=== PATIENT | male | born 1950 | race Caucasian/White ===

== ENCOUNTER 2021-06-09 11:53 | Inpatient (IN) ==
[2021-06-09] MEDS ORDERED: SODIUM CHLORIDE 0.9% 1000ML 1,000 ML IV ONE ×2 (12:24→12:41)
[2021-06-09 12:31] LABS: Basophils # (auto) 0.01 K/uL (0-0.2); Hematocrit (blood only) 31.4 % (42-52); Immature Granulocytes # (auto) 0.07 K/uL (0.00-0.02); Immature Granulocytes % (auto) 0.3 %; Lymphocytes # (auto) 1.05 K/uL (1.2-3.4); Mean Corpuscular Hemoglobin 30.1 pg (25-34); Mean Corpuscular Volume 85.8 fL (80-100); Mean Platelet Volume 8.9 fL (7.4-10.4); Monocytes # (auto) 0.74 K/uL (0.11-0.59); Monocytes % (auto) 3.6 %; Neutrophils # (auto) 18.95 K/uL (1.4-6.5); Neutrophils % (auto) 91.1 %; Platelet Count 371 K/uL (130-400); RDW Coefficient of Variation 13.7 % (11.5-14.5); RDW Standard Deviation 43.6 fL (36.4-46.3); Red Blood Count 3.66 M/uL (4.7-6.1); White Blood Count 20.82 K/uL (4.8-10.8)
[2021-06-09 12:39] LABS: Albumin Level 2.8 gm/dl (3.4-5.0); BUN Creatinine Ratio 18.7 (10-20); Calcium 8.8 mg/dl (8.5-10.1); Creatinine Clr Calc Pharmacy 60.5 ml/min; Est GFR (African American) 73.3 ml/min; Est GFR (Non-African American) 63.2 ml/min; Potassium 3.5 mmol/L (3.5-5.1)
[2021-06-09] MEDS ORDERED: POTASSIUM CHLORIDE CRTAB 20 MEQ TABCR PO STA (12:41)
[2021-06-09] MEDS ORDERED: SODIUM CHLORIDE 0.9% 1000ML 500 ML IV ONE (12:44)
[2021-06-09 12:52] LABS: Albumin Globulin Ratio 0.7 (0.9-2); Bilirubin,Total 1.5 mg/dl (0.2-1); Creatine Kinase MB 1.7 ng/ml (0.5-3.6); Globulin 4.1 gm/dl (2.5-4.0); Thyroid Stimulating Hormone 1.12 uIu/ml (0.300-4.500); Total Protein 6.9 gm/dl (6.4-8.2); Troponin I 0.073 ng/ml (0-0.045)
--- NOTE | 2021-06-09 13:03 | XRay Report ---
XR chest 1V portable HISTORY: 70 years-old Male weakness acute weakness COMPARISON: Chest radiograph 02/13/2021 TECHNIQUE: Portable AP view of the chest FINDINGS: Cardiomediastinal and hilar silhouettes are within normal limits. No pneumothorax, pleural effusion, airspace consolidation or overt pulmonary edema. Degenerative changes of the shoulders and spine. IMPRESSION: No acute process. ACT 112: Negative or not required by law. The above report was generated using voice recognition software. It may contain grammatical, syntax o r spelling errors. Electronically signed by: Edilberto Foy M.D. 06/09/2021 1:02 PM
[2021-06-09] MEDS ORDERED: PANTOprazole 80 MG in DEXTROSE 5% 100 ML IV ONE (14:00)
[2021-06-09] MEDS ORDERED: PANTOPRAZOLE BOLUS/DRIP 1 EA IV STA (14:00)
[2021-06-09] MEDS ORDERED: PANTOprazole 40 MG in DEXTROSE 5% 100 ML IV SCH (14:15)
[2021-06-09 14:29] LABS: Base Excess ABG -3.2 mEq/L (-9-1.8); HCO3 ABG 19 mmol/L (19-24); Oxygen Saturation ABG 98.4 % (90-95); PCO2 ABG 26 mmHg (35-46); PO2 ABG 109 mmHg (80-95); pH ABG 7.49 (7.35-7.45)
[2021-06-09 14:31] LABS: Allen Test Pos (Pos)
[2021-06-09 14:35] LABS: INR 1.2 (0.9-1.1); Partial Thromboplastin Ratio 1.3; Partial Thromboplastin Time 33.8 Seconds (21.0-31.0); Prothrombin Time 11.9 Seconds (9.0-12.0)
--- NOTE | 2021-06-09 14:39 | History & Physical Report ---
Date of Service June 09, 2021 Assessment & Plan (1) GI bleed: Hemoglobin upon admission 11.0, down 6 g from January Heme positive stools in the ED NPO Hold aspirin and Plavix H&H every 6 hours Protonix 40 mg IV twice daily NSS + KCl 20 mEq at 125 mils per hour Consult gastroenterology Present on Admission?: Yes (2) Symptomatic anemia: See above Present on Admission?: Yes (3) History of CVA with residual deficit: Temporarily hold aspirin and Plavix Present on Admission?: Yes (4) Internal carotid artery stent present: Temporarily hold aspirin and Plavix Present on Admission?: Yes (5) Elevated troponin I level: Elevated troponin I level/CAD/stented coronary artery- The patient will be admitted to telemetry for serial cardiac enzymes, serial EKG's, cardiac rhythm monitoring and a 2-D echocardiogram with Dopplers. Holding aspirin and Plavix as noted above due to GI bleed Consult cardiology Present on Admission?: Yes (6) CAD (coronary artery disease), [place] coronary artery: See above Present on Admission?: Yes (7) Stented coronary artery: See above Present on Admission?: Yes (8) Diabetes mellitus: Hold Metformin Placed on Accu-Cheks before meals and at bedtime/every 6 hours with NovoLog coverage per scale Check hemoglobin A1c Present on Admission?: Yes (9) Hyperlipidemia LDL goal <70: Hold atorvastatin for now Present on Admission?: Yes History of Present Illness Chief Complaint: The patient was brought to the emergency department with complaint of generalized fatigue, and confusion, as noted by family. Primary Care Provider: Rodney Mcfarland MD The patient is a 70-year-old male with a past medical history including acute CVA on 02/12/2021, status post stenting of right ICA on 02/20/[address] Cruz at [facility], cardiac catheterization at that time which showed 99% distal left main stent disease extending to the proximal LAD with further disease in the RCA and circumflex, status post HERNANDEZ of distal left main extending to the LAD along with IABP which she was ultimately weaned off of. He was to continue aspirin and Plavix dual antiplatelet treatment for 3 months to allow endothelialization of the carotid artery stent, prior to consideration for CABG that would require stopping Plavix temporarily, moderate mitral regurgitation. At that time, he was unwilling to undergo surgery due to financial issues, and was to reconsult with [facility] surgery once he felt he was ready to undergo surgery. His family member in attendance reports that his mentation has continued to be slower, and has memory issues, since he had his CVA in January, Evaluation in the emergency department at [facility] today revealed the following abnormalities: Troponin 0.073, albumin 2.8, WBC 20.82, glucose 167, total bilirubin 1.5, AST 51. His hemoglobin was noted to have dropped to 6 g from previous, and stools were found to be Hemoccult positive. Allergies Allergy/AdvReac Type Severity Reaction Status Date / Time No Known Allergies Allergy Unverified 06/09/21 13:36 Home Medications Medication Instructions Recorded Confirmed Type aspirin [Aspir-81] 81 mg PO QAM 06/09/21 06/09/21 History atorvastatin [Lipitor] 80 mg PO HS 06/09/21 06/09/21 History clopidogrel [Plavix] 75 mg PO QAM 06/09/21 06/09/21 History folic acid-B yvaw-[id number]-oblza-zinc 1 tab PO QAM 06/09/21 06/09/21 History lisinopril [Zestril] 20 mg PO QAM 06/09/21 06/09/21 History metformin 1,000 mg PO BIDM 06/09/21 06/09/21 History metoprolol succinate [Toprol XL] 100 mg PO BIDM 06/09/21 06/09/21 History Past Med/Surg History Medical History (Updated 06/09/21 @ 14:57 by Cody Piedra MD) CAD (coronary artery disease), [place] coronary artery Diabetes mellitus Family history non-contributory Hyperlipidemia LDL goal <70 Internal carotid artery stent present Surgical History (Updated 06/09/21 @ 14:53 by Cody Piedra MD) No history of previous surgery Stented coronary artery Family History (Updated 02/12/21 @ 20:33 by ANA Cloud) Other Family history non-contributory Social History Smoking Status: Never smoker Preferred Language: Unknown Communication Ability: Impaired Current Living Situation Comment: unknown Feels Safe at Home: Yes Assistive Devices: Oxygen - Continuous Review of Systems Review of Systems: The patient denies chest pain, palpitations, shortness of breath, dyspnea on exertion, cough, lower extremity swelling, sore throat, fevers, chills, sweats, nausea, vomiting, diarrhea , constipation, abdominal pain, pelvic pain, blood in urine or stool, dysuria, urinary frequency or urgency, lightheadedness, dizziness, headache, loss of consciousness, rash, abnormal bruising or bleeding, focal weakness, numbness or tingling in arms or legs, generalized arthralgias or myalgias, back or neck pain, or night sweats. The review of systems is otherwise negative other than for that already noted above, and at least 10 systems have been reviewed. Physical Exam Physical Exam: The patient is awake, oriented 3, somewhat slow to respond to questions, normocephalic and atraumatic, lying in bed and in no acute distress. HEENT--PERRL, EOMI, mucous membranes and oropharynx dry. Neck--supple. No JVD. No bruits. Thyroid normal, trachea midline, no adenopathy. Heart--normal S1 and S2. No murmurs, rubs or gallops. Lungs--clear bilaterally, no respiratory distress, no accessory muscle use. Abdomen--normal bowel sounds and soft. Nontender. Nondistended, no hernias or masses, no organomegaly. Extremities--no cyanosis or clubbing. No edema. Dermatologic--normal skin turgor, normal color, no abnormal lymph nodes, no rash. Neurologic--cranial nerves II through XII grossly intact. Rheumatologic--normal range of motion. Psychiatric--normal affect. Results & Data Results & Data ([facility]) Vital Signs (Past 12 Hours) Vital Signs Temp Pulse Resp BP Pulse Ox 06/09/21 14:30 72 25 H 122/70 98 06/09/21 13:24 74 19 123/66 100 06/09/21 12:00 97.7 F 86 20 101/70 98 Laboratory Results Laboratory Results WBC 20.82 K/uL (4.8-10.8) H 06/09/21 12:04 RBC 3.66 M/uL (4.7-6.1) L 06/09/21 12:04 Hgb 11.0 g/dL (14.0-18.0) L 06/09/21 12:04 Hct 31.4 % (42-52) L 06/09/21 12:04 MCV 85.8 fL (80-100) 06/09/21 12:04 MCH 30.1 pg (25-34) 06/09/21 12:04 MCHC 35.0 g/dL (32-36) 06/09/21 12:04 RDW Std Deviation 43.6 fL (36.4-46.3) 06/09/21 12:04 RDW Coeff of Vel 13.7 % (11.5-14.5) 06/09/21 12:04 Plt Count 371 K/uL (130-400) 06/09/21 12:04 MPV 8.9 fL (7.4-10.4) 06/09/21 12:04 Immature Gran % (Auto) 0.3 % 06/09/21 12:04 Neut % (Auto) 91.1 % 06/09/21 12:04 Lymph % (Auto) 5.0 % 06/09/21 12:04 Imperial % (Auto) 3.6 % 06/09/21 12:04 Eos % (Auto) 0.0 % 06/09/21 12:04 Baso % (Auto) 0.0 % 06/09/21 12:04 Neut # (Auto) 18.95 K/uL (1.4-6.5) H 06/09/21 12:04 Lymph # (Auto) 1.05 K/uL (1.2-3.4) L 06/09/21 12:04 Imperial # (Auto) 0.74 K/uL (0.11-0.59) H 06/09/21 12:04 Eos # (Auto) 0.00 K/uL (0-0.5) 06/09/21 12:04 Baso # (Auto) 0.01 K/uL (0-0.2) 06/09/21 12:04 Immature Gran # (Auto) 0.07 K/uL (0.00-0.02) H 06/09/21 12:04 PT 11.9 Seconds (9.0-12.0) 06/09/21 12:04 INR 1.2 (0.9-1.1) H 06/09/21 12:04 APTT 33.8 Seconds (21.0-31.0) H 06/09/21 12:04 PTT Ratio 1.3 06/09/21 12:04 ABG pH 7.49 (7.35-7.45) H 06/09/21 13:48 ABG pCO2 26 mmHg (35-46) L 06/09/21 13:48 ABG pO2 109 mmHg (80-95) H 06/09/21 13:48 ABG HCO3 19 mmol/L (19-24) 06/09/21 13:48 ABG O2 Saturation 98.4 % (90-95) H 06/09/21 13:48 ABG Base Excess -3.2 mEq/L (-9-1.8) 06/09/21 13:48 Brandt Test Pos (Pos) 06/09/21 13:48 Barometric Pressure 729.1 mm/Hg 06/09/21 13:48 Oxygen Given RA 06/09/21 13:48 Sodium 130 mmol/L (136-145) L 06/09/21 12:04 Potassium 3.5 mmol/L (3.5-5.1) 06/09/21 12:04 Chloride 98 mmol/L (98-107) 06/09/21 12:04 Carbon Dioxide 17 mmol/L (21-32) L 06/09/21 12:04 Anion Gap 14.0 (3-11) H 06/09/21 12:04 BUN 22 mg/dl (7-18) H 06/09/21 12:04 Creatinine 1.17 mg/dl (0.6-1.4) 06/09/21 12:04 Est Cr Clr Drug Dosing 60.5 ml/min 06/09/21 12:04 Est GFR ( Amer) 73.3 ml/min 06/09/21 12:04 Est GFR (Non-Af Amer) 63.2 ml/min 06/09/21 12:04 BUN/Creatinine Ratio 18.7 (10-20) 06/09/21 12:04 Glucose 167 mg/dl (70-99) H 06/09/21 12:04 Osmolality 277 mOsm/kg (280-300) L 06/09/21 12:04 Calcium 8.8 mg/dl (8.5-10.1) 06/09/21 12:04 Total Bilirubin 1.5 mg/dl (0.2-1) H 06/09/21 12:04 AST 51 U/L (15-37) H 06/09/21 12:04 ALT 55 U/L (12-78) 06/09/21 12:04 Alkaline Phosphatase 336 U/L (45-117) H 06/09/21 12:04 Total Creatine Kinase 198 U/L (39-308) 06/09/21 12:04 CK-MB (CK-2) 1.7 ng/ml (0.5-3.6) 06/09/21 12:04 CK/CKMB % Calc 0.9 (0-3.0) 06/09/21 12:04 Troponin I 0.073 ng/ml (0-0.045) H* 06/09/21 12:04 Total Protein 6.9 gm/dl (6.4-8.2) 06/09/21 12:04 Albumin 2.8 gm/dl (3.4-5.0) L 06/09/21 12:04 Globulin 4.1 gm/dl (2.5-4.0) H 06/09/21 12:04 Albumin/Globulin Ratio 0.7 (0.9-2) L 06/09/21 12:04 TSH 1.120 uIu/ml (0.300-4.500) 06/09/21 12:04 COVID-19 Eval Order Covid19 at [facility] 06/09/21 13:22 SARS-CoV-2 (PCR) NEGATIVE (Negative) 06/09/21 13:22 Impressions Chest X-Ray 06/09/21 12:24 XR chest 1V portable HISTORY: 70 years-old Male weakness acute weakness COMPARISON: Chest radiograph 02/13/2021 TECHNIQUE: Portable AP view of the chest FINDINGS: Cardiomediastinal and hilar silhouettes are within normal limits. No pneumothorax, pleural effusion, airspace consolidation or overt pulmonary edema. Degenerative changes of the shoulders and spine. IMPRESSION: No acute process. ACT 112: Negative or not required by law. The above report was generated using voice recognition software. It may contain grammatical, syntax or spelling errors. Electronically signed by: Edilberto Foy M.D. 06/09/2021 1:02 PM Code Status & VTE Plan Code Status Full code VTE Prophylaxis Plan VTE Prophylaxis will be ordered: Yes PG Care Time/CCT Total # of Minutes Spent Total Time Spent with Patient: Total time spent is greater than 50% in coordination of care (as documented) at patient's floor/unit and/or counseling patient: Coding Level of Care Code 62047 Initial Inpt Care Lvl 3 Diagnoses GI bleed K92.2 Symptomatic anemia D64.9 History of CVA with residual deficit I69.30 Internal carotid artery stent present Z95.828 Elevated troponin I level R77.8 CAD (coronary artery disease), [place] coronary artery I25.10 Stented coronary artery Z95.5 Diabetes mellitus E11.9 Hyperlipidemia LDL goal <70 E78.5
[2021-06-09] MEDS ORDERED: OPTIRAY 320 100ml IV ONE (15:08)
--- NOTE | 2021-06-09 15:18 | CT Scan Report ---
CT SCAN OF THE BRAIN WITHOUT IV CONTRAST CLINICAL HISTORY: Change in mental status. COMPARISON STUDY: CT of the brain dated 02/12/2021. TECHNIQUE: Unenhanced axial CT scan of the brain is performed from the vertex to the skull base. A do se lowering technique was utilized adhering to the principles of ALARA. FINDINGS: Brain parenchyma: There are age-related involutional changes noting moderate subcortical and periven tricular microangiopathic change. Foci of right frontal, right parietal, and right occipital encephal omalacia are consistent with remote infarcts. A chronic lacunar infarct is seen in the right thalamus . There is no hemorrhage, mass effect, or evidence of acute territorial ischemia by CT criteria. Colon -white matter differentiation is preserved. No extra-axial fluid collection is seen. Ventricles, sulci, cisterns: Prominent secondary to involutional change. Intracranial vasculature: There is atherosclerotic calcification of the cavernous carotid and vertebr al arteries. Calvarium: Unremarkable. Sinuses and mastoids: There is trace mucosal thickening within the maxillary antra. There is opacific ation expansion of a right ethmoid sinus which measures up to 2.1 cm. The mastoid air cells are well pneumatized. Orbits: The bony orbits are grossly intact. IMPRESSION: 1. There is no hemorrhage, mass effect, or evidence of acute territorial ischemia by CT criteria. 2. 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 ACT 112: Negative or not required by law. Electronically signed by: Eris Ceballos M.D. 06/09/2021 3:17 PM
--- NOTE | 2021-06-09 15:40 | CT Scan Report ---
CT abd pelvis IV con only CLINICAL HISTORY: Pt c/o GI bleed COMPARISON STUDY: None. TECHNIQUE: A dose lowering technique was utilized adhering to the principles of ALARA. CT DOSE: 1190.67 mGy.cm FINDINGS: Lower chest: Minimal atelectasis at dependent portions of bilateral lower lobes. Mild respiratory mot ion artifact limits evaluation. 6 mm subpleural nodule is seen within the right lower lobe (4/66). Liver: The contrast-enhanced liver is normal in size. There is no intrahepatic biliary ductal dilatat ion. Multiple hypoattenuating lesions are seen within the right lobe of the liver, largest is measuri ng 4.6 x 1.8 cm in size, shows internal hyperattenuating, probably enhancing component in seen in pos terior subcapsular aspect of the segment 6 (5/75) Gallbladder: Unremarkable. Spleen: Normal in size. 2.1 x 1.5 cm hypoattenuating lesion is seen within its parenchyma. Pancreas: Unremarkable. Adrenal glands: Unremarkable. Kidneys: There is symmetric renal cortical enhancement. The kidneys are normal in size without hydron ephrosis.No evidence of nephrolithiasis. 8 mm hypoattenuating lesion is seen within the right renal p arenchyma most likely representing cysts. 2.6 cm fluid attenuation structure is adjacent to anterior cortex of the left kidney and might repres ent cortical cyst (5/199) Diffuse mesenteric and retroperitoneal edema is seen. Pelvic viscera: Urinary bladder is overdistended. Prostate gland is minimally enlarged. Bowel: Small hiatal hernia is seen. Bowel loops are nondilated. Multiple calcified foci are seen with in loops of small bowel and might represent ingested material. Appendix is not well seen. Diverticulo sis of descending and sigmoid colon is seen. Possible sigmoid colon wall thickening is seen within le ft lower quadrant which might represent developing diverticulitis. Evaluation for inflammatory change s is difficult due to diffuse mesenteric edema. Peritoneum: There is no intraperitoneal free air or abdominal ascites. Diffuse mesenteric and retrope ritoneal edema is seen. Vasculature: The abdominal aorta is normal in course and caliber. Adenopathy: Multiple retroperitoneal lymph nodes are seen, largest is measuring 1.4 cm in size (4/49) Skeletal structures: Multilevel degenerative changes of the spine, most severe is seen at the L4-L5 l evel. No definite aggressive osseous lesions are seen. IMPRESSION: 1. Diverticulosis of descending and sigmoid colon with possible diverticulitis within left lower luz maria drant. Multiple calcified foci within lumen of the bowel might represent ingested material. 2. Diffuse mesenteric and retroperitoneal edema. Slightly prominent retroperitoneal lymph nodes. Ple ase correlate above-mentioned findings with prior history of neoplastic process. 3. Few hypoattenuating liver lesions, concerning lesion is seen within subcapsular aspect of the seg ment 6. Further evaluation with liver ultrasound might be considered. 4. Questionable hypoattenuating lesion adjacent to the left renal cortex, could represent renal cyst . 5. Small hiatal hernia. 6. 6 mm nodule within the right lower lobe. Further evaluation with nonenhanced CT of the chest on n onemergency basis is recommended. ACT 112: Positive. There are findings on this exam that require communication between the performing entity and the patient following Patient Test Result Information Act ([place] Act 112) guidelines. The above report was generated using voice recognition software. It may contain grammatical, syntax o r spelling errors. Electronically signed by: Hanna Crane DO 06/09/2021 3:38 PM
[2021-06-09] MEDS ORDERED: DEXTROSE 50% 50 ML SYRINGE IV PRN (17:06)
[2021-06-09] MEDS ORDERED: GLUCOSE 10 TABS/TUBE PO PRN (17:06)
[2021-06-09] MEDS ORDERED: GLUCAGON FOR INJ 1 MG VIAL SQ PRN (17:06)
[2021-06-09] MEDS ORDERED: CARBOHYDRATES FOR HYPOGLYCEMIA PO PRN (17:06)
[2021-06-09] MEDS ORDERED: GLUCOSE 40% GEL 15 GM TUBE PO PRN (17:06)
[2021-06-09] MEDS ORDERED: ONDANSETRON INJ 2 MG/ML 2 ML VIAL IV PRN (17:06)
[2021-06-09] MEDS ORDERED: PIPERACILL/TAZOBAC CONSULT ACTIVE PRN (17:41)
[2021-06-09] MEDS ORDERED: VANCOMYCIN CONSULT ACTIVE PRN (17:41)
[2021-06-09] MEDS ORDERED: PIPERACILLIN/TAZOBACTAM 4.5 GM in DEXTROSE 5% 100 ML IV SCH (17:45)
[2021-06-09 18:15] LABS: Hematocrit (blood only) 32.5 % (42-52); Hemoglobin 11.4 g/dL (14.0-18.0)
[2021-06-09] MEDS: INSULIN ASPART 100 UNITS/ML 3 ML PEN SC SCH ×2 (18:18→21:45)
[2021-06-09] MEDS: NSS + 20MEQ KCL 20 MEQ/1,000 ML BAG IV SCH (18:23)
--- NOTE | 2021-06-09 18:52 | Emergency Department Note ---
Impression & Plan Hypotension, GI bleed, Symptomatic anemia, Elevated troponin I level, Diabetes mellitus ED Provider Note NAME: MELLY HURTADO AGE: 70 SEX: M : 1950 ARRIVES VIA: Ambulance INFORMANT: Patient, EMS ED PROVIDER(S): Donn Chen MD CHIEF COMPLAINT: weakness HPI: This 70-year-old male who presents emergency department complaining of weakness. The patient reports he was walking today in the heat when his legs suddenly became very rubbery and were unable to support him. Patient reports lowering himself to the ground. The patient reports he has a significant cardiac history and was to have bypass done at [facility]. His friend reports that the patient passed on cardiac bypass due to insurance reasons. EMS reports that they started an IV on the patient and took the patient to the emergency departme . Upon arrival to the emergency department the patient reports he did eat today. He reports he has been taking his medicines. He reports he has not had alcohol for the past 6 months. ROS: See above HPI for pertinent positives & negatives. A total of 10 systems reviewed and were otherwise negative. PAST MEDICAL HISTORY: See Below PAST SURGICAL HISTORY: See Below FAMILY HISTORY: See Below SOCIAL HISTORY: See Below HOME MEDICATIONS: See Below ALLERGIES: See Below VITALS: See Below PHYSICAL EXAMINATION: VITAL SIGNS - Vital signs and nursing notes were reviewed. GENERAL - 70-year-old male appearing stated age who is in no acute distress. Communicates well with provider and answers questions appropriately. SKIN - Without rashes. HEAD - NC/AT. EYES - PERRL with EOMI bilaterally. Sclera anicteric. Palpebral conjunctiva pink and moist with no injection noted. EARS - No deformities of external structures noted on gross examination bilaterally. NOSE - Midline and without cyanosis. No epistaxis or purulent drainage noted. Septum midline without deviation or septal hematoma noted. MOUTH/OROPHARYNX - Without perioral cyanosis. Buccal mucosa pink and moist and without leukoplakia. Tongue midline with equal elevation of palate bilaterally. No tonsillar hypertrophy, erythema, or exudates noted. NECK - Neck with FROM. Supple to palpation. No nuchal rigidity. LUNGS - Chest wall symmetric without accessory muscle use, intercostals retractions, or central cyanosis. Normal vesicular breath sounds CTA B/L. No wheezes, rales, or rhonchi appreciated. CARDIAC - RRR with S1/S2. No murmur, rubs, or gallops appreciated. ABDOMEN - Abdominal contour without pulsations or visible masses. BS normoactive all four quadrants. No tenderness, palpable masses, hepatosplenomegaly, or ascites noted. RECTAL- Brown Stool heme positive EXTREMITIES - No clubbing or peripheral cyanosis. No pretibial edema present. +3/5 radial, posterior tibial, and dorsalis pedis pulses palpated throughout. +5/5 strength noted in UE/LE bilaterally. NEUROLOGIC - Cranial nerves II through XII grossly intact. Sensory intact to light touch throughout. Patellar reflexes +2/4. PSYCH - A&Ox3 and cooperates fully with examiner. Pt is very pleasant and interacts well with examiner. MEDICAL DECISION MAKING: Patient was seen and evaluated as above in room B4. Review was performed of nursing notes and vital signs. I did review pertinent previous visits and patient history. After obtaining a thorough history and physical examination the above work up was performed. This 70-year-old male who presents emergency department after a near syncopal episode. The patient arrives to the emergency department hypotensive. He was given a normal saline bolus x2. I am concerned about the patient's hemoglobin which has dropped his troponin which is elevated and his bicarb which is also decreased. For this reason I did discuss the case with cardiology gastroenterology as well as internal medicine. He was started on IV Protonix. An order was placed for continuous cardiac monitoring. The monitor shows a rate of 81 with Normal Sinus rhythm. The patient was evaluated during a period of high volume and high acuity during the global COVID-19 pandemic, and that diagnosis was suspected/considered upon their initial presentation. Their evaluation, treatment and testing was consistent with current guidelines for patients who present with complaints or symptoms that may be related to COVID-19. Patient was seen while provider was wearing PPE. Triage Nursing notes reviewed. Prior medical records reviewed Vital Signs: reviewed and remarkable for hypotension Differential diagnosis: Cardiac ischemia, aortic dissection, pulmonary embolism, pneumothorax, pneu monia, pericarditis, myocarditis, esophageal rupture, GERD, cholecystitis, pancreatitis, musculoskeletal, as well as other pathologies. ER treatment provided: See below Diagnostics interpreted by me: ECG: Normal sinus rhythm left axis deviation no ST elevation depression QTC is 522 ventricular rate is 88 EKG is compared to 02/13/2021 PACs are no longer present. Laboratory studies: As stated above and show below. Imaging studies: See below Consultation(s): Cardiology Gastroenterology Internal Medicine Critical Care: I have personally spent greater than 30 minutes of critical care time in the direct management of this patient. This includes bedside care, interpretation of diagnostic studies, and testing, discussion with consultants, patient, and family members, and other required patient management activities. This 30 minutes is in excess of all separately billable procedures. Past Med/Surg History Medical History (Updated 06/09/21 @ 18:58 by Donn Chen MD) CAD (coronary artery disease), [place] coronary artery Diabetes mellitus Family history non-contributory Hyperlipidemia LDL goal <70 Internal carotid artery stent present Surgical History (Updated 06/09/21 @ 14:53 by Cody Piedra MD) No history of previous surgery Stented coronary artery Family History (Updated 02/12/21 @ 20:33 by ANA Cloud) Other Family history non-contributory Social History Smoking Status: Former smoker Hx Alcohol Use: No Hx Substance Use: No Preferred Language: Danish Communication Ability: Effective [employer] Associate Required: No Beliefs That Will Affect Care: None Current Living Situation: Alone Current Living Situation Comment: unknown Feels Safe at Home: Yes Assistive Devices: Cane, Glasses and Walker Allergies Allergies Allergy/AdvReac Type Severity Reaction Status Date / Time No Known Allergies Allergy Unverified 06/09/21 13:36 Home Meds Home Medications Medication Instructions Recorded Confirmed aspirin [Aspir-81] 81 mg PO QAM 06/09/21 06/09/21 atorvastatin [Lipitor] 80 mg PO HS 06/09/21 06/09/21 clopidogrel [Plavix] 75 mg PO QAM 06/09/21 06/09/21 folic acid-B [id number] 1 tab PO QAM 06/09/21 06/09/21 lisinopril [Zestril] 20 mg PO QAM 06/09/21 06/09/21 metformin 1,000 mg PO BIDM 06/09/21 06/09/21 metoprolol succinate [Toprol XL] 100 mg PO BIDM 06/09/21 06/09/21 Results & Data (ED) Vital Signs Vital Signs - 24 hr 06/09/21 12:00 06/09/21 13:24 06/09/21 14:30 Temperature 36.5 C Temperature Source Oral Pulse Rate 86 74 72 Pulse Rate from SpO2 Sensor 73 Pulse Rhythm Regular Pulse Strength Normal Respiratory Rate 20 19 25 H Respiratory Effort / Characteristics Non-Labored Spontaneous Respiratory Depth Normal Respiratory Pattern Regular Blood Pressure 101/70 123/66 122/70 Blood Pressure Mean 80 85 87 Blood Pressure Position Sitting Pulse Oximetry 98 100 98 Oxygen Delivery Method Room Air Sepsis Recent Fever Within 48 Hours No Sepsis New/Unexplained Change in Mental Status No Sepsis Action Taken by Nursing No Action Required Home Medications Current Medication List: was personally reviewed by me Laboratory Data Attestation: I reviewed the patient's lab results. Result diagrams: 06/09/21 17:59 06/09/21 12:04 Lab Results 06/09/21 06/09/21 06/09/21 Range/Units 12:04 12:04 12:04 WBC 20.82 H (4.8-10.8) K/uL RBC 3.66 L (4.7-6.1) M/uL Hgb 11.0 L (14.0-18.0) g/dL Hct 31.4 L (42-52) % MCV 85.8 (80-100) fL MCH 30.1 (25-34) pg MCHC 35.0 (32-36) g/dL RDW Std Deviation 43.6 (36.4-46.3) fL RDW Coeff of Vel 13.7 (11.5-14.5) % Plt Count 371 (130-400) K/uL MPV 8.9 (7.4-10.4) fL Immature Gran % (Auto) 0.3 % Neut % (Auto) 91.1 % Lymph % (Auto) 5.0 % [place] % (Auto) 3.6 % Eos % (Auto) 0.0 % Baso % (Auto) 0.0 % Neut # (Auto) 18.95 H (1.4-6.5) K/uL Lymph # (Auto) 1.05 L (1.2-3.4) K/uL [place] # (Auto) 0.74 H (0.11-0.59) K/uL Eos # (Auto) 0.00 (0-0.5) K/uL Baso # (Auto) 0.01 (0-0.2) K/uL Immature Gran # (Auto) 0.07 H (0.00-0.02) K/uL PT (9.0-12.0) Seconds INR (0.9-1.1) APTT (21.0-31.0) Seconds PTT Ratio ABG pH (7.35-7.45) ABG pCO2 (35-46) mmHg ABG pO2 (80-95) mmHg ABG HCO3 (19-24) mmol/L ABG O2 Saturation (90-95) % ABG Base Excess (-9-1.8) mEq/L Brandt Test (Pos) Barometric Pressure mm/Hg Oxygen Given Sodium 130 L (136-145) mmol/L Potassium 3.5 (3.5-5.1) mmol/L Chloride 98 (98-107) mmol/L Carbon Dioxide 17 L (21-32) mmol/L Anion Gap 14.0 H (3-11) BUN 22 H (7-18) mg/dl Creatinine 1.17 (0.6-1.4) mg/dl Est Cr Clr Drug Dosing 60.5 ml/min Est GFR ( Amer) 73.3 ml/min Est GFR (Non-Af Amer) 63.2 ml/min BUN/Creatinine Ratio 18.7 (10-20) Glucose 167 H (70-99) mg/dl Osmolality 277 L (280-300) mOsm/kg Calcium 8.8 (8.5-10.1) mg/dl Total Bilirubin 1.5 H (0.2-1) mg/dl AST 51 H (15-37) U/L ALT 55 (12-78) U/L Alkaline Phosphatase 336 H (45-117) U/L Total Creatine Kinase 198 (39-308) U/L CK-MB (CK-2) 1.7 (0.5-3.6) ng/ml CK/CKMB % Calc 0.9 (0-3.0) Troponin I 0.073 H* (0-0.045) ng/ml Total Protein 6.9 (6.4-8.2) gm/dl Albumin 2.8 L (3.4-5.0) gm/dl Globulin 4.1 H (2.5-4.0) gm/dl Albumin/Globulin Ratio 0.7 L (0.9-2) TSH 1.120 (0.300-4.500) uIu/ml COVID-19 Eval Order SARS-CoV-2 (PCR) (Negative) Blood Type Antibody Screen 06/09/21 06/09/21 06/09/21 Range/Units 12:04 13:22 13:22 WBC (4.8-10.8) K/uL RBC (4.7-6.1) M/uL Hgb (14.0-18.0) g/dL Hct (42-52) % MCV (80-100) fL MCH (25-34) pg MCHC (32-36) g/dL RDW Std Deviation (36.4-46.3) fL RDW Coeff of Vel (11.5-14.5) % Plt Count (130-400) K/uL MPV (7.4-10.4) fL Immature Gran % (Auto) % Neut % (Auto) % Lymph % (Auto) % [place] % (Auto) % Eos % (Auto) % Baso % (Auto) % Neut # (Auto) (1.4-6.5) K/uL Lymph # (Auto) (1.2-3.4) K/uL [place] # (Auto) (0.11-0.59) K/uL Eos # (Auto) (0-0.5) K/uL Baso # (Auto) (0-0.2) K/uL Immature Gran # (Auto) (0.00-0.02) K/uL PT 11.9 (9.0-12.0) Seconds INR 1.2 H (0.9-1.1) APTT 33.8 H (21.0-31.0) Seconds PTT Ratio 1.3 ABG pH (7.35-7.45) ABG pCO2 (35-46) mmHg ABG pO2 (80-95) mmHg ABG HCO3 (19-24) mmol/L ABG O2 Saturation (90-95) % ABG Base Excess (-9-1.8) mEq/L Brandt Test (Pos) Barometric Pressure mm/Hg Oxygen Given Sodium (136-145) mmol/L Potassium (3.5-5.1) mmol/L Chloride (98-107) mmol/L Carbon Dioxide (21-32) mmol/L Anion Gap (3-11) BUN (7-18) mg/dl Creatinine (0.6-1.4) mg/dl Est Cr Clr Drug Dosing ml/min Est GFR ( Amer) ml/min Est GFR (Non-Af Amer) ml/min BUN/Creatinine Ratio (10-20) Glucose (70-99) mg/dl Osmolality (280-300) mOsm/kg Calcium (8.5-10.1) mg/dl Total Bilirubin (0.2-1) mg/dl AST (15-37) U/L ALT (12-78) U/L Alkaline Phosphatase (45-117) U/L Total Creatine Kinase (39-308) U/L CK-MB (CK-2) (0.5-3.6) ng/ml CK/CKMB % Calc (0-3.0) Troponin I (0-0.045) ng/ml Total Protein (6.4-8.2) gm/dl Albumin (3.4-5.0) gm/dl Globulin (2.5-4.0) gm/dl Albumin/Globulin Ratio (0.9-2) TSH (0.300-4.500) uIu/ml COVID-19 Eval Order Covid19 at [facility] SARS-CoV-2 (PCR) NEGATIVE (Negative) Blood Type Antibody Screen 06/09/21 06/09/21 Range/Units 13:48 14:18 WBC (4.8-10.8) K/uL RBC (4.7-6.1) M/uL Hgb (14.0-18.0) g/dL Hct (42-52) % MCV (80-100) fL MCH (25-34) pg MCHC (32-36) g/dL RDW Std Deviation (36.4-46.3) fL RDW Coeff of Vel (11.5-14.5) % Plt Count (130-400) K/uL MPV (7.4-10.4) fL Immature Gran % (Auto) % Neut % (Auto) % Lymph % (Auto) % [place] % (Auto) % Eos % (Auto) % Baso % (Auto) % Neut # (Auto) (1.4-6.5) K/uL Lymph # (Auto) (1.2-3.4) K/uL [place] # (Auto) (0.11-0.59) K/uL Eos # (Auto) (0-0.5) K/uL Baso # (Auto) (0-0.2) K/uL Immature Gran # (Auto) (0.00-0.02) K/uL PT (9.0-12.0) Seconds INR (0.9-1.1) APTT (21.0-31.0) Seconds PTT Ratio ABG pH 7.49 H (7.35-7.45) ABG pCO2 26 L (35-46) mmHg ABG pO2 109 H (80-95) mmHg ABG HCO3 19 (19-24) mmol/L ABG O2 Saturation 98.4 H (90-95) % ABG Base Excess -3.2 (-9-1.8) mEq/L Brandt Test Pos (Pos) Barometric Pressure 729.1 mm/Hg Oxygen Given RA Sodium (136-145) mmol/L Potassium (3.5-5.1) mmol/L Chloride (98-107) mmol/L Carbon Dioxide (21-32) mmol/L Anion Gap (3-11) BUN (7-18) mg/dl Creatinine (0.6-1.4) mg/dl Est Cr Clr Drug Dosing ml/min Est GFR ( Amer) ml/min Est GFR (Non-Af Amer) ml/min BUN/Creatinine Ratio (10-20) Glucose (70-99) mg/dl Osmolality (280-300) mOsm/kg Calcium (8.5-10.1) mg/dl Total Bilirubin (0.2-1) mg/dl AST (15-37) U/L ALT (12-78) U/L Alkaline Phosphatase (45-117) U/L Total Creatine Kinase (39-308) U/L CK-MB (CK-2) (0.5-3.6) ng/ml CK/CKMB % Calc (0-3.0) Troponin I (0-0.045) ng/ml Total Protein (6.4-8.2) gm/dl Albumin (3.4-5.0) gm/dl Globulin (2.5-4.0) gm/dl Albumin/Globulin Ratio (0.9-2) TSH (0.300-4.500) uIu/ml COVID-19 Eval Order SARS-CoV-2 (PCR) (Negative) Blood Type O Positive Antibody Screen NEGATIVE Administered Medications Potassium Chloride/Sodium Chloride (Normal Saline W/20 Meq Kcl) 20 meq in 1,000 mls @ 100 mls/hr IV .Q10H REESE Stop: 07/09/21 17:29 Last Admin: 06/09/21 18:23 Dose: 100 mls/hr Documented by: [id number] Insulin Aspart (Insulin Aspart 100 Units/Ml 3 Ml Pen) 0 units SC ACHS REESE Stop: 07/09/21 17:29 Last Admin: 06/09/21 18:18 Dose: Not Given Documented by: [id number] Discontinued Medications Sodium Chloride (Nss 1000ml) 1,000 mls @ 999 mls/hr IV .Q1H1M ONE Stop: 06/09/21 13:24 Last Infusion: 06/09/21 13:32 Dose: 0 mls/hr Documented by: [id number] Admin: 06/09/21 12:41 Dose: 999 mls/hr Documented by: [id number] Sodium Chloride (Nss 1000ml) 1,000 mls @ 999 mls/hr IV .Q1H1M ONE Stop: 06/09/21 13:41 Last Infusion: 06/09/21 14:20 Dose: 0 mls/hr Documented by: [id number] Admin: 06/09/21 13:20 Dose: 999 mls/hr Documented by: [id number] Sodium Chloride (Nss 1000ml) 500 mls @ 999 mls/hr IV .Q31M ONE Stop: 06/09/21 13:14 Last Infusion: 06/09/21 14:33 Dose: 0 mls/hr Documented by: [id number] Admin: 06/09/21 14:02 Dose: 999 mls/hr Documented by: [id number] Pantoprazole Sodium (Protonix Bolus/Drip) 0 mls @ 1 mls/hr IV ONE STA Stop: 06/09/21 14:01 Last Admin: 06/09/21 15:26 Dose: Not Given Documented by: [id number] Pantoprazole Sodium 80 mg/ (Dextrose) 120 mls @ 400 mls/hr IV NOW ONE Stop: 06/09/21 14:17 Last Admin: 06/09/21 15:26 Dose: Not Given Documented by: [id number] Ioversol (Optiray 320 100ml) 95 ml IV ONCE ONE Stop: 06/09/21 15:09 Last Admin: 06/09/21 15:09 Dose: 95 ml Documented by: [id number] Potassium Chloride (Potassium Chloride Crtab 20 Meq Tabcr) 40 meq PO NOW STA Stop: 06/09/21 12:42 Last Admin: 06/09/21 13:22 Dose: 40 meq Documented by: [id number] Imaging Data Attestation: I personally reviewed and interpreted this imaging study as follows: Radiologist's Impression: Chest X-Ray 06/09/21 12:24 XR chest 1V portable HISTORY: 70 years-old Male weakness acute weakness COMPARISON: Chest radiograph 02/13/2021 TECHNIQUE: Portable AP view of the chest FINDINGS: Cardiomediastinal and hilar silhouettes are within normal limits. No pneumothorax, pleural effusion, airspace consolidation or overt pulmonary edema. Degenerative changes of the shoulders and spine. IMPRESSION: No acute process. ACT 112: Negative or not required by law. The above report was generated using voice recognition software. It may contain grammatical, syntax or spelling errors. Electronically signed by: Ediblerto Foy M.D. 06/09/2021 1:02 PM Abdomen/Pelvis CT 06/09/21 14:05 CT abd pelvis IV con only CLINICAL HISTORY: Pt c/o GI bleed COMPARISON STUDY: None. TECHNIQUE: A dose lowering technique was utilized adhering to the principles of ALARA. CT DOSE: 1190.67 mGy.cm FINDINGS: Lower chest: Minimal atelectasis at dependent portions of bilateral lower lobes. Mild respiratory motion artifact limits evaluation. 6 mm subpleural nodule is seen within the right lower lobe (4/66). Liver: The contrast-enhanced liver is normal in size. There is no intrahepatic biliary ductal dilatation. Multiple hypoattenuating lesions are seen within the right lobe of the liver, largest is measuring 4.6 x 1.8 cm in size, shows inter nal hyperattenuating, probably enhancing component in seen in posterior subcapsular aspect of the segment 6 (5/75) Gallbladder: Unremarkable. Spleen: Normal in size. 2.1 x 1.5 cm hypoattenuating lesion is seen within its parenchyma. Pancreas: Unremarkable. Adrenal glands: Unremarkable. Kidneys: There is symmetric renal cortical enhancement. The kidneys are normal in size without hydronephrosis.No evidence of nephrolithiasis. 8 mm hypoattenuating lesion is seen within the right renal parenchyma most likely representing cysts. 2.6 cm fluid attenuation structure is adjacent to anterior cortex of the left kidney and might represent cortical cyst (5/199) Diffuse mesenteric and retroperitoneal edema is seen. Pelvic viscera: Urinary bladder is overdistended. Prostate gland is minimally enlarged. Bowel: Small hiatal hernia is seen. Bowel loops are nondilated. Multiple calcified foci are seen within loops of small bowel and might represent ingested material. Appendix is not well seen. Diverticulosis of descending and sigmoid colon is seen. Possible sigmoid colon wall thickening is seen within left lower quadrant which might represent developing diverticulitis. Evaluation for inflammatory changes is difficult due to diffuse mesenteric edema. Peritoneum: There is no intraperitoneal free air or abdominal ascites. Diffuse mesenteric and retroperitoneal edema is seen. Vasculature: The abdominal aorta is normal in course and caliber. Adenopathy: Multiple retroperitoneal lymph nodes are seen, largest is measuring 1.4 cm in size (4/49) Skeletal structures: Multilevel degenerative changes of the spine, most severe is seen at the L4-L5 level. No definite aggressive osseous lesions are seen. IMPRESSION: 1. Diverticulosis of descending and sigmoid colon with possible diverticulitis within left lower quadrant. Multiple calcified foci within lumen of the bowel might represent ingested material. 2. Diffuse mesenteric and retroperitoneal edema. Slightly prominent retroperitoneal lymph nodes. Please correlate above-mentioned findings with prior history of neoplastic process. 3. Few hypoattenuating liver lesions, concerning lesion is seen within subcapsular aspect of the segment 6. Further evaluation with liver ultrasound might be considered. 4. Questionable hypoattenuating lesion adjacent to the left renal cortex, could represent renal cyst. 5. Small hiatal hernia. 6. 6 mm nodule within the right lower lobe. Further evaluation with nonenhanced CT of the chest on nonemergency basis is recommended. ACT 112: Positive. There are findings on this exam that require communication between the performing entity and the patient following Patient Test Result Information Act ([place] Act 112) guidelines. The above report was generated using voice recognition software. It may contain grammatical, syntax or spelling errors. Electronically signed by: Hanna Crane DO 06/09/2021 3:[address] 06/09/21 14:05 CT SCAN OF THE BRAIN WITHOUT IV CONTRAST CLINICAL HISTORY: Change in mental status. COMPARISON STUDY: CT of the brain dated 02/12/2021. TECHNIQUE: Unenhanced axial CT scan of the brain is performed from the vertex to the skull base. A dose lowering technique was utilized adhering to the [facility] of [place]. FINDINGS: Brain parenchyma: There are age-related involutional changes noting moderate subcortical and periventricular microangiopathic change. Foci of right frontal, right parietal, and right occipital encephalomalacia are consistent with remote infarcts. A chronic lacunar infarct is seen in the right thalamus. There is no hemorrhage, mass effect, or evidence of acute territorial ischemia by CT criteria. Colon-white matter differentiation is preserved. No extra-axial fluid collection is seen. Ventricles, sulci, cisterns: Prominent secondary to involutional change. Intracranial vasculature: There is atherosclerotic calcification of the cavernous carotid and vertebral arteries. Calvarium: Unremarkable. Sinuses and mastoids: There is trace mucosal thickening within the maxillary antra. There is opacification expansion of a right ethmoid sinus which measures up to 2.1 cm. The mastoid air cells are well pneumatized. Orbits: The bony orbits are grossly intact. IMPRESSION: 1. There is no hemorrhage, mass effect, or evidence of acute territorial ischemia by CT criteria. 2. 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 ACT 112: Negative or not required by law. Electronically signed by: Eris Ceballos M.D. 06/09/2021 3:17 PM Discharge Plan Visit Data Chief Complaint: Fall ED Provider: Donn Chen Discharge Problem: Hypotension, GI bleed, Symptomatic anemia, Elevated troponin I level, Diabetes mellitus Patient Disposition: Admitted As Inpatient Discharge Instructions Interventions: ED Discharge Assessment Last Done: 06/09/21 16:40 Discharge Problem: Hypotension Qualifiers: Hypotension type: unspecified hypotension type Qualified Code(s): I95.9 - Hypotension, unspecified GI bleed Qualifiers: GI bleed type/associated pathology: unspecified gastrointestinal hemorrhage type Qualified Code(s): K92.2 - Gastrointestinal hemorrhage, unspecified Diabetes mellitus Qualifiers: Diabetes mellitus type: other specified (including RODRI) Diabetes mellitus manager long term care insulin use: unspecified half-way insulin use status Diabetes mellitus complication status: with other specified complication Qualified Code(s): E13.69 - Other specified diabetes mellitus with other specified complication
--- NOTE | 2021-06-09 19:12 | Pharmacy Report ---
Pharmacy Abx Dose Short Note - Date of Service June 09, 2021 - Assessment & Plan Assessment * 70 year old M receiving Zosyn and vancomycin for treatment of cellulitis. Discussed changing Zosyn to ceftriaxone with Dr. Piedra - prefers to keep Zosyn and vancomycin * Patient meets criteria for vancomycin dosing via AUC Plan * Vancomycin 2000 mg IV x1 then 1000 mg IV q12h * Trough 06/11 @ 0730 Pharmacy will continue to follow and will adjust dose/frequency as necessary. Thank you.
[2021-06-09] MEDS ORDERED: PIPERACILLIN/TAZOBACTAM 3.375 GM in DEXTROSE 5% 100 ML IV ONE (19:15)
[2021-06-09] MEDS ORDERED: VANCOMYCIN HCL 2,000 MG in SODIUM CHLORIDE 0.9% 500 ML IV ONE (19:15)
[2021-06-09 19:28] LABS: Appearance Urine Cloudy (Clear); Bacteria Urine Automated Negative (Negative); Bilirubin Urine 1+ (Negative); Blood Urine Trace (Negative); Color Urine Dark Yellow; Epithelial Cell Urine Auto >30 /lpf (0-5); Glucose Urine UA Negative (Negative); Ketones Urine 1+ (Negative); Leukocyte Esterase Urine Negative (Negative); Nitrite Urine Negative (Negative); Protein Urine 2+ (Negative); RBC Urine Automated 0-4 /hpf (0-4); Specific Gravity Urine > 1.045 (1.000-1.030); Urobilinogen Urine Negative (Negative); pH Urine 5.5 (4.5-7.5)
[2021-06-09 20:00] LABS: Amphetamines+Metham, Urine Neg (Neg); Barbiturates, Urine Neg (Neg); Benzodiazepine, Urine Neg (Neg); Cocaine, Urine Neg (Neg); MDMA (Ecstacy), Urine Neg (Neg); Methadone, Urine Neg (Neg); Opiate, Urine Neg (Neg); Phencyclidine, Urine Neg (Neg)
[2021-06-09] MEDS: PANTOprazole 40 MG in SYRINGE 0 ML IV SCH (21:34)
--- NOTE | 2021-06-09 21:34 | Ultrasound Report ---
US arterial duplex LE BI HISTORY: 70 years-old Male LLE foot ulcer chronic soft tissue wound of the left lower extremity COMPARISON: None TECHNIQUE: Multiple real-time sonographic images of the bilateral lower extremity arterial structures were obtained assessing grayscale appearance, color and spectral flow. Segmental pressures were also obtained. FINDINGS: RIGHT: KEYLA of the right lower extremity measures 1.06. Mild atherosclerosis. Triphasic waveforms above the l evel of the knee. Biphasic and triphasic waveforms within the calf. Blunted monophasic waveforms with spectral broadening noted within the distal posterior tibial artery with peak systolic velocities me asuring up to 14.7. No arterial occlusion identified. Blunted monophasic waveforms are also noted wit hin the distal peroneal artery. LEFT: KEYLA of the left lower extremity measures 0.57. Mild atherosclerosis. Triphasic waveforms above the le abbie of the knee. Mostly biphasic waveforms within the left calf. Elevated peak systolic velocities wi thin the posterior tibial artery measure up to 233 cm/s. Monophasic blunted waveforms in the distal p eroneal artery, peak systolic velocities measuring up to 32 cm/s. Monophasic blunted waveforms within the dorsalis pedis artery spectral broadening. Peak systolic velocities measure up to 8.7 cm. No art erial occlusion identified. IMPRESSION: 1. Abnormal left lower extremity KEYLA of 0.57. 2. Atherosclerotic vascular disease with diminished flow within the bilateral lower legs as above. 3. Elevated peak systolic velocities within the left posterior tibial artery compatible with arterial stenosis. 4. No arterial occlusion. ACT 112: Negative or not required by law. The above report was generated using voice recognition software. It may contain grammatical, syntax o r spelling errors. Electronically signed by: Edilberto Foy M.D. 06/09/2021 9:33 PM
[2021-06-09 23:18] LABS: Hematocrit (blood only) 30.4 % (42-52); Hemoglobin 10.3 g/dL (14.0-18.0)
[2021-06-10] MEDS: PIPERACILLIN/TAZOBACTAM 3.375 GM in DEXTROSE 5% 100 ML IV SCH ×3 (01:08→16:41)
[2021-06-10] MEDS: NSS + 20MEQ KCL 20 MEQ/1,000 ML BAG IV SCH ×2 (05:47→14:55)
--- NOTE | 2021-06-10 06:52 | Electrocardiogram Report ---
Test Reason : Blood Pressure : / mmHG Vent. Rate : 088 BPM Atrial Rate : 088 BPM P-R Int : 192 ms QRS Dur : 128 ms QT Int : 432 ms P-R-T Axes : 010 -36 072 degrees QTc Int : 522 ms Poor data quality, interpretation may be adversely affected Normal sinus rhythm Left axis deviation Non-specific intra-ventricular conduction block Cannot rule out Anterior infarct (cited on or before 13-FEB-2021) Abnormal ECG When compared with ECG of 13-FEB-2021 00:12, Premature atrial complexes are no longer Present WI interval has decreased Questionable change in initial forces of Anteroseptal leads Nonspecific T wave abnormality, improved in Lateral leads Confirmed by John Tinsley ([id number]) on 06/10/2021 6:52:17 AM Referred By: REFERRED SELF Confirmed By:John Tinsley
[2021-06-10] MEDS: VANCOMYCIN HCL 1,000 MG in SODIUM CHLORIDE 0.9% 250 ML IV SCH ×2 (08:15→20:35)
[2021-06-10] MEDS: PANTOprazole 40 MG in SYRINGE 0 ML IV SCH (08:15)
[2021-06-10] MEDS: INSULIN ASPART 100 UNITS/ML 3 ML PEN SC SCH ×4 (08:16→22:40)
[2021-06-10 09:35] LABS: Hematocrit (blood only) 29.5 % (42-52); Hemoglobin 10.2 g/dL (14.0-18.0)
[2021-06-10 09:37] LABS: Basophils # (auto) 0.02 K/uL (0-0.2); Basophils % (auto) 0.1 %; Hematocrit (blood only) 29.6 % (42-52); Hemoglobin 10.2 g/dL (14.0-18.0); Immature Granulocytes # (auto) 0.05 K/uL (0.00-0.02); Immature Granulocytes % (auto) 0.3 %; Lymphocytes # (auto) 0.87 K/uL (1.2-3.4); Lymphocytes % (auto) 5.1 %; Mean Corpuscular Hemoglobin 29.5 pg (25-34); Mean Corpuscular Hgb Conc 34.5 g/dL (32-36); Mean Corpuscular Volume 85.5 fL (80-100); Mean Platelet Volume 8.5 fL (7.4-10.4); Monocytes # (auto) 0.89 K/uL (0.11-0.59); Monocytes % (auto) 5.2 %; Neutrophils # (auto) 15.33 K/uL (1.4-6.5); Neutrophils % (auto) 89.3 %; Platelet Count 316 K/uL (130-400); RDW Coefficient of Variation 13.9 % (11.5-14.5); RDW Standard Deviation 43.2 fL (36.4-46.3); Red Blood Count 3.46 M/uL (4.7-6.1); White Blood Count 17.16 K/uL (4.8-10.8)
--- NOTE | 2021-06-10 09:43 | Cardiology Consultation ---
Date of Consultation June 10, 2021 Assessment & Plan (1) CAD (coronary artery disease), [place] coronary artery: Known severe coronary artery disease with NSTEMI in January of this year. He has been evaluated by the cardiovascular surgeons at [facility] and was advised to undergo bypass surgery based on his residual coronary disease and cardiomyopathy. However, the patient told me that he does not have a current interest in proceeding with surgery. He did not endorse symptoms of angina or coronary insufficiency. He appears to be active with daily ambulation. He should continue on aggressive regimen for secondary prevention which includes dual anti-platelet therapy, high-dose atorvastatin and metoprolol. It seems that his anti-platelet therapy was discontinued over concerns about gastrointestinal bleeding. This therapy should be resumed as soon as possible. At the very least reinstitution of 1 agent be recommended as soon as possible given his known coronary disease and relatively recent PCI. (2) Elevated troponin I level: The trajectory of his troponin elevation is not suggestive of an acute coronary syndrome. He did not describe symptoms consistent with an acute coronary syndrome. At the time of his last admission he was intubated and sedated when his cardiac biomarkers were noted to be severely elevated. Therefore, no index symptoms of which to inquire. Given his coronary disease and cardiomyopathy, I do not think he currently needs to be treated for an acute coronary syndrome. (3) LBBB (left bundle branch block): His EKG is not a classic left bundle branch block. It is more consistent with a nonspecific intraventricular conduction delay. No ST segment changes of concern currently. (4) Peripheral vascular disease: He is known to have carotid disease, coronary disease and his ABIs are suggestive of lower extremity disease as well. He has an ischemic lesion on his left foot. He will continue on aggressive regimen for vascular disease as noted above for his coronary disease. He may require additional intervention for his foot lesion. (5) Mitral regurgitation: Mild on the echocardiogram performed today. There was some concern that his regurgitation was more moderate on prior studies at [facility]. This may need to be evaluated more thoroughly should he agree to have bypass surgery. (6) Ischemic cardiomyopathy: He has reduced LV systolic function. He is not currently manifesting symptoms of decompensation. He is on a medical regimen which consists of metoprolol succinate and lisinopril. It is very likely that the best intervention for improvement in his LV function would be revascularization. Adjustment of his medical regimen to include Entresto and/or spironolactone could also be considered depending on his desire for revascularization. With respect to any planned procedures, he does not appear to have an unstable coronary syndrome or decompensated heart failure. Ideally, his medications would be continued throughout his hospitalization. Do not think there is a contraindication or additional precaution required for endoscopy or other procedure. Anti-platelet therapy should be initiated as soon as possible. History of Present Illness Reason for Consultation: History of coronary disease, elevated troponin Requesting Physician: Dorothea Attending Physician: Trell Vidal, DO History of Present Illness The patient is a 70-year-old gentleman with a history of severe peripheral vascular disease, coronary disease, NSTEMI and cerebrovascular accident who was brought to the emergency room yesterday for weakness. The patient states that he was walking and his legs began to shake. He states that his knees became weak and he fell to the ground. He was unable to raise himself up due to perceived leg weakness. Did not report overt leg pain. He did not report cramping in the legs. The patient walks on a daily basis. He states that he generally walks between 1/4 and 1/2 mi daily. He does not have an automobile and generally walks or uses public transportation to get around. He did not have additional symptoms associated with his efforts yesterday. He did not report any symptoms of dyspnea, shortness of breath or chest discomfort. He has not had recent episodes of dizziness or lightheadedness. In January of this year the patient was brought to the hospital for mental status changes. He was discovered to have acute cerebrovascular accident and developed an acute coronary syndrome requiring emergent left main and LAD stenting. The patient was transported to [facility] for additional care and has been seeing the cardio vascular surgery service at 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 He claims to be an active individual as noted above in cannot report any recent symptoms of limiting dyspnea or chest discomfort. No symptoms of dizziness or lightheadedness. No syncope. Currently he claims to be feeling well. He has some mild discomfort of the left foot. He states that he has some occasional discomfort in both feet. He did not notice a significant problem with the left foot until the past 1-2 days. Allergies Allergy/AdvReac Type Severity Reaction Status Date / Time No Known Allergies Allergy Unverified 06/09/21 13:36 Home Medications Medication Instructions Recorded Confirmed Type aspirin [Aspir-81] 81 mg PO QAM 06/09/21 06/09/21 History atorvastatin [Lipitor] 80 mg PO HS 06/09/21 06/09/21 History clopidogrel [Plavix] 75 mg PO QAM 06/09/21 06/09/21 History folic acid-B [id number]-[id number] 1 tab PO QAM 06/09/21 06/09/21 History lisinopril [Zestril] 20 mg PO QAM 06/09/21 06/09/21 History metformin 1,000 mg PO BIDM 06/09/21 06/09/21 History metoprolol succinate [Toprol XL] 100 mg PO BIDM 06/09/21 06/09/21 History Patient History Medical History (Updated 06/10/21 @ 09:55 by Jayesh Ontiveros MD) CAD (coronary artery disease), [place] coronary artery 02/12/2021: PCI with HERNANDEZ to the distal left main and proximal LAD. Additional distal LAD disease. Large non dominant left circumflex with moderate diffuse disease. Long subtotal occlusion of the distal vessel. Large dominant RCA with focal 70-80% lesion in the mid vessel. Diffuse [id number] distal disease. 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 He did not report any change in his stool habits or change in stool color. He has changed his diet due to his diabetes and heart disease but did not report any difficulty with eating. Physical Exam Physical Exam: The patient is alert and oriented. Mood and affect appeared normal. He answered all questions appropriately. HEENT: Pupils are equal and reactive to light and accommodation. Extraocular movements are intact. The sclerae are anicteric. Neuro: Cranial nerves intact Neck: Patient's neck is supple. There is no evidence of jugular venous distention. The thyroid is not enlarged. Lungs: Clear to auscultation bilaterally. He has good air movement without use of accessory muscles. No rales wheezes or rhonchi. Cardiac: Heart demonstrates a regular rate and rhythm. Normal S1 and S2. Soft holosystolic murmur. Pulses: The patient has palpable radial pulses bilaterally that are equal in intensity Abdomen: Tenderness in the left lower quadrant. No distention. Extremities: No edema. Left foot with gangrenous toes and marked erythema involving the majority of the left foot Skin: I did not appreciate any rashes on examination today. Results & Data ([facility]) Vital Signs (Past 12 Hours) Vital Signs Temp Pulse Pulse Resp BP Pulse Ox 06/10/21 07:31 37.3 C 82 20 126/64 96 06/10/21 04:00 36.7 C 84 18 121/61 96 06/09/21 22:31 36.6 C 91 H 20 145/80 H 98 06/09/21 22:20 90 Laboratory Results Abnormal Lab Results 06/09/21 06/09/21 06/09/21 12:04 12:04 12:04 WBC 20.82 H RBC 3.66 L Hgb 11.0 L Hct 31.4 L MCV 85.8 MCH 30.1 MCHC 35.0 RDW Std Deviation 43.6 RDW Coeff of Vel 13.7 Plt Count 371 MPV 8.9 Immature Gran % (Auto) 0.3 Neut % (Auto) 91.1 Lymph % (Auto) 5.0 [place] % (Auto) 3.6 Eos % (Auto) 0.0 Baso % (Auto) 0.0 Neut # (Auto) 18.95 H Lymph # (Auto) 1.05 L [place] # (Auto) 0.74 H Eos # (Auto) 0.00 Baso # (Auto) 0.01 Immature Gran # (Auto) 0.07 H PT INR APTT PTT Ratio ABG pH ABG pCO2 ABG pO2 ABG HCO3 ABG O2 Saturation ABG Base Excess Brandt Test Barometric Pressure Oxygen Given Sodium 130 L Potassium 3.5 Chloride 98 Carbon Dioxide 17 L Anion Gap 14.0 H BUN 22 H Creatinine 1.17 Est Cr Clr Drug Dosing 60.5 Est GFR ( Amer) 73.3 Est GFR (Non-Af Amer) 63.2 BUN/Creatinine Ratio 18.7 Glucose 167 H POC Glucose Osmolality 277 L Calcium 8.8 Total Bilirubin 1.5 H AST 51 H ALT 55 Alkaline Phosphatase 336 H Total Creatine Kinase 198 CK-MB (CK-2) 1.7 CK/CKMB % Calc 0.9 Troponin I 0.073 H* Total Protein 6.9 Albumin 2.8 L Globulin 4.1 H Albumin/Globulin Ratio 0.7 L TSH 1.120 Urine Color Urine Appearance Urine pH Ur Specific Halfway Urine Protein Urine Glucose (UA) Urine Ketones Urine Blood Urine Nitrite Urine Bilirubin Urine Urobilinogen Ur Leukocyte Esterase Urine WBC (Auto) Urine RBC (Auto) U Hyaline Cast (Auto) U Epithel Cells (Auto) Urine Bacteria (Auto) Ur Renal Epithelial Cell Urine Yeast Urine Opiates Screen Ur Methadone, Qual Urine Barbiturates Ur Phencyclidine (PCP) U Amphetamin/Meth Scrn MDMA (Ecstasy) Screen U Benzodiazepines Scrn Ur Cocaine Metabolite U Marijuana (THC) Screen COVID-19 Eval Order SARS-CoV-2 (PCR) Blood Type Antibody Screen 06/09/21 06/09/21 06/09/21 12:04 13:22 13:22 WBC RBC Hgb Hct MCV MCH MCHC RDW Std Deviation RDW Coeff of Vel Plt Count MPV Immature Gran % (Auto) Neut % (Auto) Lymph % (Auto) [place] % (Auto) Eos % (Auto) Baso % (Auto) Neut # (Auto) Lymph # (Auto) [place] # (Auto) Eos # (Auto) Baso # (Auto) Immature Gran # (Auto) PT 11.9 INR 1.2 H APTT 33.8 H PTT Ratio 1.3 ABG pH ABG pCO2 ABG pO2 ABG HCO3 ABG O2 Saturation ABG Base Excess Brandt Test Barometric Pressure Oxygen Given Sodium Potassium Chloride Carbon Dioxide Anion Gap BUN Creatinine Est Cr Clr Drug Dosing Est GFR ( Amer) Est GFR (Non-Af Amer) BUN/Creatinine Ratio Glucose POC Glucose Osmolality Calcium Total Bilirubin AST ALT Alkaline Phosphatase Total Creatine Kinase CK-MB (CK-2) CK/CKMB % Calc Troponin I Total Protein Albumin Globulin Albumin/Globulin Ratio TSH Urine Color Urine Appearance Urine pH Ur Specific Halfway Urine Protein Urine Glucose (UA) Urine Ketones Urine Blood Urine Nitrite Urine Bilirubin Urine Urobilinogen Ur Leukocyte Esterase Urine WBC (Auto) Urine RBC (Auto) U Hyaline Cast (Auto) U Epithel Cells (Auto) Urine Bacteria (Auto) Ur Renal Epithelial Cell Urine Yeast Urine Opiates Screen Ur Methadone, Qual Urine Barbiturates Ur Phencyclidine (PCP) U Amphetamin/Meth Scrn MDMA (Ecstasy) Screen U Benzodiazepines Scrn Ur Cocaine Metabolite U Marijuana (THC) Screen COVID-19 Eval Order Covid19 at [facility] SARS-CoV-2 (PCR) NEGATIVE Blood Type Antibody Screen 06/09/21 06/09/21 06/09/21 13:48 14:18 16:57 WBC RBC Hgb Hct MCV MCH MCHC RDW Std Deviation RDW Coeff of Vel Plt Count MPV Immature Gran % (Auto) Neut % (Auto) Lymph % (Auto) [place] % (Auto) Eos % (Auto) Baso % (Auto) Neut # (Auto) Lymph # (Auto) [place] # (Auto) Eos # (Auto) Baso # (Auto) Immature Gran # (Auto) PT INR APTT PTT Ratio ABG pH 7.49 H ABG pCO2 26 L ABG pO2 109 H ABG HCO3 19 ABG O2 Saturation 98.4 H ABG Base Excess -3.2 Brandt Test Pos Barometric Pressure 729.1 Oxygen Given RA Sodium Potassium Chloride Carbon Dioxide Anion Gap BUN Creatinine Est Cr Clr Drug Dosing Est GFR ( Amer) Est GFR (Non-Af Amer) BUN/Creatinine Ratio Glucose POC Glucose 160 H Osmolality Calcium Total Bilirubin AST ALT Alkaline Phosphatase Total Creatine Kinase CK-MB (CK-2) CK/CKMB % Calc Troponin I Total Protein Albumin Globulin Albumin/Globulin Ratio TSH Urine Color Urine Appearance Urine pH Ur Specific Halfway Urine Protein Urine Glucose (UA) Urine Ketones Urine Blood Urine Nitrite Urine Bilirubin Urine Urobilinogen Ur Leukocyte Esterase Urine WBC (Auto) Urine RBC (Auto) U Hyaline Cast (Auto) U Epithel Cells (Auto) Urine Bacteria (Auto) Ur Renal Epithelial Cell Urine Yeast Urine Opiates Screen Ur Methadone, Qual Urine Barbiturates Ur Phencyclidine (PCP) U Amphetamin/Meth Scrn MDMA (Ecstasy) Screen U Benzodiazepines Scrn Ur Cocaine Metabolite U Marijuana (THC) Screen COVID-19 Eval Order SARS-CoV-2 (PCR) Blood Type O Positive Antibody Screen NEGATIVE 06/09/21 06/09/21 06/09/21 17:59 17:59 19:10 WBC RBC Hgb 11.4 L Hct 32.5 L MCV MCH MCHC RDW Std Deviation RDW Coeff of Vel Plt Count MPV Immature Gran % (Auto) Neut % (Auto) Lymph % (Auto) [place] % (Auto) Eos % (Auto) Baso % (Auto) Neut # (Auto) Lymph # (Auto) [place] # (Auto) Eos # (Auto) Baso # (Auto) Immature Gran # (Auto) PT INR APTT PTT Ratio ABG pH ABG pCO2 ABG pO2 ABG HCO3 ABG O2 Saturation ABG Base Excess Brandt Test Barometric Pressure Oxygen Given Sodium Potassium Chloride Carbon Dioxide Anion Gap BUN Creatinine Est Cr Clr Drug Dosing Est GFR ( Amer) Est GFR (Non-Af Amer) BUN/Creatinine Ratio Glucose POC Glucose Osmolality Calcium Total Bilirubin AST ALT Alkaline Phosphatase Total Creatine Kinase CK-MB (CK-2) CK/CKMB % Calc Troponin I 0.080 H* Total Protein Albumin Globulin Albumin/Globulin Ratio TSH Urine Color Urine Appearance Urine pH Ur Specific Halfway Urine Protein Urine Glucose (UA) Urine Ketones Urine Blood Urine Nitrite Urine Bilirubin Urine Urobilinogen Ur Leukocyte Esterase Urine WBC (Auto) Urine RBC (Auto) U Hyaline Cast (Auto) U Epithel Cells (Auto) Urine Bacteria (Auto) Ur Renal Epithelial Cell Urine Yeast Urine Opiates Screen Neg Ur Methadone, Qual Neg Urine Barbiturates Neg Ur Phencyclidine (PCP) Neg U Amphetamin/Meth Scrn Neg MDMA (Ecstasy) Screen Neg U Benzodiazepines Scrn Neg Ur Cocaine Metabolite Neg U Marijuana (THC) Screen Neg COVID-19 Eval Order SARS-CoV-2 (PCR) Blood Type Antibody Screen 06/09/21 06/09/21 06/09/21 19:10 21:45 22:57 WBC RBC Hgb 10.3 L Hct 30.4 L MCV MCH MCHC RDW Std Deviation RDW Coeff of Vel Plt Count MPV Immature Gran % (Auto) Neut % (Auto) Lymph % (Auto) [place] % (Auto) Eos % (Auto) Baso % (Auto) Neut # (Auto) Lymph # (Auto) [place] # (Auto) Eos # (Auto) Baso # (Auto) Immature Gran # (Auto) PT INR APTT PTT Ratio ABG pH ABG pCO2 ABG pO2 ABG HCO3 ABG O2 Saturation ABG Base Excess Brandt Test Barometric Pressure Oxygen Given Sodium Potassium Chloride Carbon Dioxide Anion Gap BUN Creatinine Est Cr Clr Drug Dosing Est GFR ( Amer) Est GFR (Non-Af Amer) BUN/Creatinine Ratio Glucose POC Glucose 129 H Osmolality Calcium Total Bilirubin AST ALT Alkaline Phosphatase Total Creatine Kinase CK-MB (CK-2) CK/CKMB % Calc Troponin I Total Protein Albumin Globulin Albumin/Globulin Ratio TSH Urine Color Dark Yellow Urine Appearance Cloudy A Urine pH 5.5 Ur Specific Halfway > 1.045 H Urine Protein 2+ H Urine Glucose (UA) Negative Urine Ketones 1+ H Urine Blood Trace H Urine Nitrite Negative Urine Bilirubin 1+ H Urine Urobilinogen Negative Ur Leukocyte Esterase Negative Urine WBC (Auto) 10-30 H Urine RBC (Auto) 0-4 U Hyaline Cast (Auto) 1-5 U Epithel Cells (Auto) >30 H Urine Bacteria (Auto) Negative Ur Renal Epithelial Cell Not Reportable Urine Yeast Not Reportable Urine Opiates Screen Ur Methadone, Qual Urine Barbiturates Ur Phencyclidine (PCP) U Amphetamin/Meth Scrn MDMA (Ecstasy) Screen U Benzodiazepines Scrn Ur Cocaine Metabolite U Marijuana (THC) Screen COVID-19 Eval Order SARS-CoV-2 (PCR) Blood Type Antibody Screen 06/10/21 06/10/21 06/10/21 00:42 06:59 09:17 WBC 17.16 H RBC 3.46 L Hgb 10.2 L Hct 29.6 L MCV 85.5 MCH 29.5 MCHC 34.5 RDW Std Deviation 43.2 RDW Coeff of Vel 13.9 Plt Count 316 MPV 8.5 Immature Gran % (Auto) 0.3 Neut % (Auto) 89.3 Lymph % (Auto) 5.1 [place] % (Auto) 5.2 Eos % (Auto) 0.0 Baso % (Auto) 0.1 Neut # (Auto) 15.33 H Lymph # (Auto) 0.87 L [place] # (Auto) 0.89 H Eos # (Auto) 0.00 Baso # (Auto) 0.02 Immature Gran # (Auto) 0.05 H PT INR APTT PTT Ratio ABG pH ABG pCO2 ABG pO2 ABG HCO3 ABG O2 Saturation ABG Base Excess Brandt Test Barometric Pressure Oxygen Given Sodium Potassium Chloride Carbon Dioxide Anion Gap BUN Creatinine Est Cr Clr Drug Dosing Est GFR ( Amer) Est GFR (Non-Af Amer) BUN/Creatinine Ratio Glucose POC Glucose 119 H Osmolality Calcium Total Bilirubin AST ALT Alkaline Phosphatase Total Creatine Kinase CK-MB (CK-2) CK/CKMB % Calc Troponin I 0.105 H* Total Protein Albumin Globulin Albumin/Globulin Ratio TSH Urine Color Urine Appearance Urine pH Ur Specific [place] Urine Protein Urine Glucose (UA) Urine Ketones Urine Blood Urine Nitrite Urine Bilirubin Urine Urobilinogen Ur Leukocyte Esterase Urine WBC (Auto) Urine RBC (Auto) U Hyaline Cast (Auto) U Epithel Cells (Auto) Urine Bacteria (Auto) Ur Renal Epithelial Cell Urine Yeast Urine Opiates Screen Ur Methadone, Qual Urine Barbiturates Ur Phencyclidine (PCP) U Amphetamin/Meth Scrn MDMA (Ecstasy) Screen U Benzodiazepines Scrn Ur Cocaine Metabolite U Marijuana (THC) Screen COVID-19 Eval Order SARS-CoV-2 (PCR) Blood Type Antibody Screen 06/10/21 09:17 WBC RBC Hgb 10.2 L Hct 29.5 L MCV MCH MCHC RDW Std Deviation RDW Coeff of Vel Plt Count MPV Immature Gran % (Auto) Neut % (Auto) Lymph % (Auto) [place] % (Auto) Eos % (Auto) Baso % (Auto) Neut # (Auto) Lymph # (Auto) [place] # (Auto) Eos # (Auto) Baso # (Auto) Immature Gran # (Auto) PT INR APTT PTT Ratio ABG pH ABG pCO2 ABG pO2 ABG HCO3 ABG O2 Saturation ABG Base Excess Brandt Test Barometric Pressure Oxygen Given Sodium Potassium Chloride Carbon Dioxide Anion Gap BUN Creatinine Est Cr Clr Drug Dosing Est GFR ( Amer) Est GFR (Non-Af Amer) BUN/Creatinine Ratio Glucose POC Glucose Osmolality Calcium Total Bilirubin AST ALT Alkaline Phosphatase Total Creatine Kinase CK-MB (CK-2) CK/CKMB % Calc Troponin I Total Protein Albumin Globulin Albumin/Globulin Ratio TSH Urine Color Urine Appearance Urine pH Ur Specific Halfway Urine Protein Urine Glucose (UA) Urine Ketones Urine Blood Urine Nitrite Urine Bilirubin Urine Urobilinogen Ur Leukocyte Esterase Urine WBC (Auto) Urine RBC (Auto) U Hyaline Cast (Auto) U Epithel Cells (Auto) Urine Bacteria (Auto) Ur Renal Epithelial Cell Urine Yeast Urine Opiates Screen Ur Methadone, Qual Urine Barbiturates Ur Phencyclidine (PCP) U Amphetamin/Meth Scrn MDMA (Ecstasy) Screen U Benzodiazepines Scrn Ur Cocaine Metabolite U Marijuana (THC) Screen COVID-19 Eval Order SARS-CoV-2 (PCR) Blood Type Antibody Screen Diagnostic Findings Cardiac catheterization 02/12/2021: Acute coronary syndrome involving the distal left main. 99% distal calcified stenosis of the left main coronary. 80- 90% long proximal stenosis of the LAD with mid and distal disease. Large nondominant circumflex with subtotal occlusion distal to OM 3, dominant RCA with focal 80% mid lesion and diffuse moderate disease involving the PDA and PLB. PCI with 3 drug-eluting stents to the distal left main and proximal LAD. (intra-aortic balloon pump required temporarily) Echocardiogram performed today revealed moderately reduced LV systolic function with ejection fraction around 35%. There regional wall motion abnormalities consistent with his known coronary disease. Mild mitral regurgitation. Mildly dilated aortic root. PG Care Time/CCT Total # of Minutes Spent Total Time Spent with Patient: Total time spent is greater than 50% in coordination of care (as documented) at patient's floor/unit and/or counseling patient: Coding Level of Care Code 14335 Initial Inpt Care Lvl 3 Diagnoses CAD (coronary artery disease), [place] coronary artery I25.10 Elevated troponin I level R77.8 LBBB (left bundle branch block) I44.7 Peripheral vascular disease I73.9 Mitral regurgitation I34.0 Ischemic cardiomyopathy I25.5
[2021-06-10 09:47] LABS: INR 1.2 (0.9-1.1); Partial Thromboplastin Ratio 1.4; Partial Thromboplastin Time 37.3 Seconds (21.0-31.0); Prothrombin Time 11.9 Seconds (9.0-12.0)
[2021-06-10 09:49] LABS: Estimated Average Glucose 166 mg/dl; Hemoglobin A1C 7.4 % (4.5-5.6)
--- NOTE | 2021-06-10 09:54 | XCELERA ---
[id number]
[2021-06-10 09:57] LABS: Albumin Globulin Ratio 0.6 (0.9-2); Albumin Level 2.3 gm/dl (3.4-5.0); BUN Creatinine Ratio 25.4 (10-20); Bilirubin,Total 1.1 mg/dl (0.2-1); Calcium 8.2 mg/dl (8.5-10.1); Creatinine Clr Calc Pharmacy 89.4 ml/min; Est GFR (African American) 106.7 ml/min; Est GFR (Non-African American) 92.1 ml/min; Globulin 3.6 gm/dl (2.5-4.0); Magnesium 1.6 mg/dl (1.8-2.4); Potassium 4.1 mmol/L (3.5-5.1); Total Protein 5.9 gm/dl (6.4-8.2)
--- NOTE | 2021-06-10 10:25 | Electrocardiogram Report ---
Test Reason : Blood Pressure : / mmHG Vent. Rate : 080 BPM Atrial Rate : 080 BPM P-R Int : 250 ms QRS Dur : 122 ms QT Int : 442 ms P-R-T Axes : 020 -63 076 degrees QTc Int : 509 ms Sinus rhythm with 1st degree A-V block Left axis deviation Non-specific intra-ventricular conduction delay Abnormal ECG When compared with ECG of 09-JUN-2021 11:58, (unconfirmed) ND interval has increased Minimal criteria for Anterior infarct are no longer Present T wave inversion now evident in Anterior leads Confirmed by Sharif Ontiveros ([id number]) on 06/10/2021 10:25:35 AM Referred By: REFERRED SELF Confirmed By:Franco Ontiveros
--- NOTE | 2021-06-10 13:53 | Hospitalist Progress Note ---
Date of Service June 10, 2021 Assessment & Plan (1) PAD (peripheral artery disease): (2) Dry gangrene: left treat toe is nearly entirely black, foul odor toe and top of the foot is tender to touch and hurts to walk continue IV antibiotics consult vascular surgery to see on Saturday discussed real possibility of amputation of toe, possibly foot will need to get CTA leg to determine viability for possible amputation (3) Ischemic ulcer of toe of left foot: patient claims this just happened recently has the appearance of chronic issue now getting worse arterial doppler with left KEYLA of 0.57 suggesting severe disease plan for CT angiogram left leg (4) Fall: fell outside his home, his knees gave out, did not have strength to get up alone no syncope, he was conscious and remembers everything hold on PT/OT as don't want him putting weight on left foot for time being (5) GI bleed: initially suspected, but Hb of 17 in the spring could have been false or hemoconcentration Hemoglobin upon admission 11.0, then 11.4, most recent 10.2, this is not suggestive of active bleeding Heme positive stools in the ED but he has NOT had any melena and reported no bleeding resume aspirin and Plavix due to severe PAD and dry gangrene Protonix 40 mg PO daily stop fluids allow him to eat/drink (6) Symptomatic anemia: Hb of 11 should not have caused a fall, he had weakness in knees did not have syncope (7) History of CVA with residual deficit: resume aspirin and Plavix (8) Internal carotid artery stent present: resume aspirin and Plavix (9) Elevated troponin I level: Elevated troponin I level/CAD/stented coronary artery- no chest pain (10) CAD (coronary artery disease), [place] coronary artery: had emergent stent in left main sent for evaluation for CABG at [place] they recommended CABG but the patient was very nervous, scared due to open heart procedure he has not followed up further, not interested in getting CABG thus medical management will be best we can do (11) Stented coronary artery: See above (12) Diabetes mellitus: Hold Metformin Placed on Accu-Cheks before meals and at bedtime/every 6 hours with NovoLog coverage per scale Check hemoglobin A1c monitor for hypoglycemia he has lost 40 lbs intentionally by eating well, strict low carb diet commended him on this (13) Hyperlipidemia LDL goal <70: resume atorvastatin Admission and Anticipated Discharge Date Admission Date: June 09, 2021 Results & Data Results & Data ([facility]) Vital Signs (Past 12 Hours) Vital Signs Temp Pulse Resp BP Pulse Ox 06/10/21 10:51 37.2 C 77 20 124/65 100 06/10/21 07:31 37.3 C 82 20 126/64 96 06/10/21 04:00 36.7 C 84 18 121/61 96 Laboratory Results Laboratory Results - last 24 hr 06/09/21 06/09/21 06/09/21 12:04 12:04 13:22 WBC RBC Hgb Hct MCV MCH MCHC RDW Std Deviation RDW Coeff of Vel Plt Count MPV Immature Gran % (Auto) Neut % (Auto) Lymph % (Auto) Harney % (Auto) Eos % (Auto) Baso % (Auto) Neut # (Auto) Lymph # (Auto) Harney # (Auto) Eos # (Auto) Baso # (Auto) Immature Gran # (Auto) PT 11.9 INR 1.2 H APTT 33.8 H PTT Ratio 1.3 ABG pH ABG pCO2 ABG pO2 ABG HCO3 ABG O2 Saturation ABG Base Excess Brandt Test Barometric Pressure Oxygen Given Sodium Potassium Chloride Carbon Dioxide Anion Gap BUN Creatinine Est Cr Clr Drug Dosing Est GFR ( Amer) Est GFR (Non-Af Amer) BUN/Creatinine Ratio Glucose POC Glucose Estimat Average Glucose Hemoglobin A1c Osmolality 277 L Calcium Magnesium Total Bilirubin AST ALT Alkaline Phosphatase Troponin I Total Protein Albumin Globulin Albumin/Globulin Ratio Urine Color Urine Appearance Urine pH Ur Specific [place] Urine Protein Urine Glucose (UA) Urine Ketones Urine Blood Urine Nitrite Urine Bilirubin Urine Urobilinogen Ur Leukocyte Esterase Urine WBC (Auto) Urine RBC (Auto) U Hyaline Cast (Auto) U Epithel Cells (Auto) Urine Bacteria (Auto) Ur Renal Epithelial Cell Urine Yeast Urine Opiates Screen Ur Methadone, Qual Urine Barbiturates Ur Phencyclidine (PCP) U Amphetamin/Meth Scrn MDMA (Ecstasy) Screen U Benzodiazepines Scrn Ur Cocaine Metabolite U Marijuana (THC) Screen SARS-CoV-2 (PCR) NEGATIVE Blood Type Antibody Screen 06/09/21 06/09/21 06/09/21 13:48 14:18 16:57 WBC RBC Hgb Hct MCV MCH MCHC RDW Std Deviation RDW Coeff of Vel Plt Count MPV Immature Gran % (Auto) Neut % (Auto) Lymph % (Auto) Harney % (Auto) Eos % (Auto) Baso % (Auto) Neut # (Auto) Lymph # (Auto) Harney # (Auto) Eos # (Auto) Baso # (Auto) Immature Gran # (Auto) PT INR APTT PTT Ratio ABG pH 7.49 H ABG pCO2 26 L ABG pO2 109 H ABG HCO3 19 ABG O2 Saturation 98.4 H ABG Base Excess -3.2 Brandt Test Pos Barometric Pressure 729.1 Oxygen Given RA Sodium Potassium Chloride Carbon Dioxide Anion Gap BUN Creatinine Est Cr Clr Drug Dosing Est GFR ( Amer) Est GFR (Non-Af Amer) BUN/Creatinine Ratio Glucose POC Glucose 160 H Estimat Average Glucose Hemoglobin A1c Osmolality Calcium Magnesium Total Bilirubin AST ALT Alkaline Phosphatase Troponin I Total Protein Albumin Globulin Albumin/Globulin Ratio Urine Color Urine Appearance Urine pH Ur Specific [place] Urine Protein Urine Glucose (UA) Urine Ketones Urine Blood Urine Nitrite Urine Bilirubin Urine Urobilinogen Ur Leukocyte Esterase Urine WBC (Auto) Urine RBC (Auto) U Hyaline Cast (Auto) U Epithel Cells (Auto) Urine Bacteria (Auto) Ur Renal Epithelial Cell Urine Yeast Urine Opiates Screen Ur Methadone, Qual Urine Barbiturates Ur Phencyclidine (PCP) U Amphetamin/Meth Scrn MDMA (Ecstasy) Screen U Benzodiazepines Scrn Ur Cocaine Metabolite U Marijuana (THC) Screen SARS-CoV-2 (PCR) Blood Type O Positive Antibody Screen NEGATIVE 06/09/21 06/09/21 06/09/21 17:59 17:59 19:10 WBC RBC Hgb 11.4 L Hct 32.5 L MCV MCH MCHC RDW Std Deviation RDW Coeff of Vel Plt Count MPV Immature Gran % (Auto) Neut % (Auto) Lymph % (Auto) [place] % (Auto) Eos % (Auto) Baso % (Auto) Neut # (Auto) Lymph # (Auto) Harney # (Auto) Eos # (Auto) Baso # (Auto) Immature Gran # (Auto) PT INR APTT PTT Ratio ABG pH ABG pCO2 ABG pO2 ABG HCO3 ABG O2 Saturation ABG Base Excess Barndt Test Barometric Pressure Oxygen Given Sodium Potassium Chloride Carbon Dioxide Anion Gap BUN Creatinine Est Cr Clr Drug Dosing Est GFR ( Amer) Est GFR (Non-Af Amer) BUN/Creatinine Ratio Glucose POC Glucose Estimat Average Glucose Hemoglobin A1c Osmolality Calcium Magnesium Total Bilirubin AST ALT Alkaline Phosphatase Troponin I 0.080 H* Total Protein Albumin Globulin Albumin/Globulin Ratio Urine Color Urine Appearance Urine pH Ur Specific [place] Urine Protein Urine Glucose (UA) Urine Ketones Urine Blood Urine Nitrite Urine Bilirubin Urine Urobilinogen Ur Leukocyte Esterase Urine WBC (Auto) Urine RBC (Auto) U Hyaline Cast (Auto) U Epithel Cells (Auto) Urine Bacteria (Auto) Ur Renal Epithelial Cell Urine Yeast Urine Opiates Screen Neg Ur Methadone, Qual Neg Urine Barbiturates Neg Ur Phencyclidine (PCP) Neg U Amphetamin/Meth Scrn Neg MDMA (Ecstasy) Screen Neg U Benzodiazepines Scrn Neg Ur Cocaine Metabolite Neg U Marijuana (THC) Screen Neg SARS-CoV-2 (PCR) Blood Type Antibody Screen 06/09/21 06/09/21 06/09/21 19:10 21:45 22:57 WBC RBC Hgb 10.3 L Hct 30.4 L MCV MCH MCHC RDW Std Deviation RDW Coeff of Vel Plt Count MPV Immature Gran % (Auto) Neut % (Auto) Lymph % (Auto) [place] % (Auto) Eos % (Auto) Baso % (Auto) Neut # (Auto) Lymph # (Auto) [place] # (Auto) Eos # (Auto) Baso # (Auto) Immature Gran # (Auto) PT INR APTT PTT Ratio ABG pH ABG pCO2 ABG pO2 ABG HCO3 ABG O2 Saturation ABG Base Excess Brandt Test Barometric Pressure Oxygen Given Sodium Potassium Chloride Carbon Dioxide Anion Gap BUN Creatinine Est Cr Clr Drug Dosing Est GFR ( Amer) Est GFR (Non-Af Amer) BUN/Creatinine Ratio Glucose POC Glucose 129 H Estimat Average Glucose Hemoglobin A1c Osmolality Calcium Magnesium Total Bilirubin AST ALT Alkaline Phosphatase Troponin I Total Protein Albumin Globulin Albumin/Globulin Ratio Urine Color Dark Yellow Urine Appearance Cloudy A Urine pH 5.5 Ur Specific [place] > 1.045 H Urine Protein 2+ H Urine Glucose (UA) Negative Urine Ketones 1+ H Urine Blood Trace H Urine Nitrite Negative Urine Bilirubin 1+ H Urine Urobilinogen Negative Ur Leukocyte Esterase Negative Urine WBC (Auto) 10-30 H Urine RBC (Auto) 0-4 U Hyaline Cast (Auto) 1-5 U Epithel Cells (Auto) >30 H Urine Bacteria (Auto) Negative Ur Renal Epithelial Cell Not Reportable Urine Yeast Not Reportable Urine Opiates Screen Ur Methadone, Qual Urine Barbiturates Ur Phencyclidine (PCP) U Amphetamin/Meth Scrn MDMA (Ecstasy) Screen U Benzodiazepines Scrn Ur Cocaine Metabolite U Marijuana (THC) Screen SARS-CoV-2 (PCR) Blood Type Antibody Screen 06/10/21 06/10/21 06/10/21 00:42 06:59 09:17 WBC 17.16 H RBC 3.46 L Hgb 10.2 L Hct 29.6 L MCV 85.5 MCH 29.5 MCHC 34.5 RDW Std Deviation 43.2 RDW Coeff of Vel 13.9 Plt Count 316 MPV 8.5 Immature Gran % (Auto) 0.3 Neut % (Auto) 89.3 Lymph % (Auto) 5.1 Harney % (Auto) 5.2 Eos % (Auto) 0.0 Baso % (Auto) 0.1 Neut # (Auto) 15.33 H Lymph # (Auto) 0.87 L [place] # (Auto) 0.89 H Eos # (Auto) 0.00 Baso # (Auto) 0.02 Immature Gran # (Auto) 0.05 H PT INR APTT PTT Ratio ABG pH ABG pCO2 ABG pO2 ABG HCO3 ABG O2 Saturation ABG Base Excess Brandt Test Barometric Pressure Oxygen Given Sodium Potassium Chloride Carbon Dioxide Anion Gap BUN Creatinine Est Cr Clr Drug Dosing Est GFR ( Amer) Est GFR (Non-Af Amer) BUN/Creatinine Ratio Glucose POC Glucose 119 H Estimat Average Glucose Hemoglobin A1c Osmolality Calcium Magnesium Total Bilirubin AST ALT Alkaline Phosphatase Troponin I 0.105 H* Total Protein Albumin Globulin Albumin/Globulin Ratio Urine Color Urine Appearance Urine pH Ur Specific [place] Urine Protein Urine Glucose (UA) Urine Ketones Urine Blood Urine Nitrite Urine Bilirubin Urine Urobilinogen Ur Leukocyte Esterase Urine WBC (Auto) Urine RBC (Auto) U Hyaline Cast (Auto) U Epithel Cells (Auto) Urine Bacteria (Auto) Ur Renal Epithelial Cell Urine Yeast Urine Opiates Screen Ur Methadone, Qual Urine Barbiturates Ur Phencyclidine (PCP) U Amphetamin/Meth Scrn MDMA (Ecstasy) Screen U Benzodiazepines Scrn Ur Cocaine Metabolite U Marijuana (THC) Screen SARS-CoV-2 (PCR) Blood Type Antibody Screen 07/10/21 07/10/21 07/10/21 09:17 09:17 09:17 WBC RBC Hgb Hct MCV MCH MCHC RDW Std Deviation RDW Coeff of Vel Plt Count MPV Immature Gran % (Auto) Neut % (Auto) Lymph % (Auto) [place] % (Auto) Eos % (Auto) Baso % (Auto) Neut # (Auto) Lymph # (Auto) [place] # (Auto) Eos # (Auto) Baso # (Auto) Immature Gran # (Auto) PT 11.9 INR 1.2 H APTT 37.3 H PTT Ratio 1.4 ABG pH ABG pCO2 ABG pO2 ABG HCO3 ABG O2 Saturation ABG Base Excess Brandt Test Barometric Pressure Oxygen Given Sodium 135 L Potassium 4.1 D Chloride 105 Carbon Dioxide 27 Anion Gap 3.0 BUN 20 H Creatinine 0.78 D Est Cr Clr Drug Dosing 89.4 Est GFR ( Amer) 106.7 Est GFR (Non-Af Amer) 92.1 BUN/Creatinine Ratio 25.4 H Glucose 110 H POC Glucose Estimat Average Glucose 166 Hemoglobin A1c 7.4 H Osmolality Calcium 8.2 L Magnesium 1.6 L Total Bilirubin 1.1 H AST 49 H ALT 53 Alkaline Phosphatase 271 H Troponin I Total Protein 5.9 L Albumin 2.3 L Globulin 3.6 Albumin/Globulin Ratio 0.6 L Urine Color Urine Appearance Urine pH Ur Specific [place] Urine Protein Urine Glucose (UA) Urine Ketones Urine Blood Urine Nitrite Urine Bilirubin Urine Urobilinogen Ur Leukocyte Esterase Urine WBC (Auto) Urine RBC (Auto) U Hyaline Cast (Auto) U Epithel Cells (Auto) Urine Bacteria (Auto) Ur Renal Epithelial Cell Urine Yeast Urine Opiates Screen Ur Methadone, Qual Urine Barbiturates Ur Phencyclidine (PCP) U Amphetamin/Meth Scrn MDMA (Ecstasy) Screen U Benzodiazepines Scrn Ur Cocaine Metabolite U Marijuana (THC) Screen SARS-CoV-2 (PCR) Blood Type Antibody Screen 06/10/21 06/10/21 06/10/21 09:17 09:17 11:50 WBC RBC Hgb 10.2 L Hct 29.5 L MCV MCH MCHC RDW Std Deviation RDW Coeff of Vel Plt Count MPV Immature Gran % (Auto) Neut % (Auto) Lymph % (Auto) [place] % (Auto) Eos % (Auto) Baso % (Auto) Neut # (Auto) Lymph # (Auto) [place] # (Auto) Eos # (Auto) Baso # (Auto) Immature Gran # (Auto) PT INR APTT PTT Ratio ABG pH ABG pCO2 ABG pO2 ABG HCO3 ABG O2 Saturation ABG Base Excess Brandt Test Barometric Pressure Oxygen Given Sodium Potassium Chloride Carbon Dioxide Anion Gap BUN Creatinine Est Cr Clr Drug Dosing Est GFR ( Amer) Est GFR (Non-Af Amer) BUN/Creatinine Ratio Glucose POC Glucose 110 H Estimat Average Glucose Hemoglobin A1c Osmolality Calcium Magnesium Total Bilirubin AST ALT Alkaline Phosphatase Troponin I 0.132 H* Total Protein Albumin Globulin Albumin/Globulin Ratio Urine Color Urine Appearance Urine pH Ur Specific [place] Urine Protein Urine Glucose (UA) Urine Ketones Urine Blood Urine Nitrite Urine Bilirubin Urine Urobilinogen Ur Leukocyte Esterase Urine WBC (Auto) Urine RBC (Auto) U Hyaline Cast (Auto) U Epithel Cells (Auto) Urine Bacteria (Auto) Ur Renal Epithelial Cell Urine Yeast Urine Opiates Screen Ur Methadone, Qual Urine Barbiturates Ur Phencyclidine (PCP) U Amphetamin/Meth Scrn MDMA (Ecstasy) Screen U Benzodiazepines Scrn Ur Cocaine Metabolite U Marijuana (THC) Screen SARS-CoV-2 (PCR) Blood Type Antibody Screen Diagnostic Findings US arterial duplex LE BI FINDINGS: RIGHT: KEYLA of the right lower extremity measures 1.06. Mild atherosclerosis. Triphasic waveforms above the level of the knee. Biphasic and triphasic waveforms within the calf. Blunted monophasic waveforms with spectral broadening noted within the distal posterior tibial artery with peak systolic velocities measuring up to 14.7. No arterial occlusion identified. Blunted monophasic waveforms are also noted within the distal peroneal artery. LEFT: KEYLA of the left lower extremity measures 0.57. Mild atherosclerosis. Triphasic waveforms above the level of the knee. Mostly biphasic waveforms within the left calf. Elevated peak systolic velocities within the posterior tibial artery measure up to 233 cm/s. Monophasic blunted waveforms in the distal peroneal artery, peak systolic velocities measuring up to 32 cm/s. Monophasic blunted waveforms within the dorsalis pedis artery spectral broadening. Peak systolic velocities measure up to 8.7 cm. No arterial occlusion identified. IMPRESSION: 1. Abnormal left lower extremity KEYLA of 0.57. 2. Atherosclerotic vascular disease with diminished flow within the bilateral lower legs as above. 3. Elevated peak systolic velocities within the left posterior tibial artery compatible with arterial stenosis. 4. No arterial occlusion. Medications Administered Current Inpatient Medications Dextrose (Dextrose 50% 50 Ml Syringe) 25 - 50 ml IV UD PRN; Protocol PRN Reason: Hypoglycemia Protocol Stop: 07/09/21 17:05 Glucagon (Glucagon For Inj 1 Mg Vial) 1 mg SQ UD PRN; Protocol PRN Reason: Hypoglycemia Protocol Stop: 07/09/21 17:05 Glucose (Glucose 10 Tabs/Tube) 4 - 8 tabs PO UD PRN; Protocol PRN Reason: Hypoglycemia Protocol Stop: 07/09/21 17:05 Glucose (Glucose 40% Gel 15 Gm Tube) 15 - 30 gm PO UD PRN; Protocol PRN Reason: Hypoglycemia Protocol Stop: 07/09/21 17:05 Potassium Chloride/Sodium Chloride (Normal Saline W/20 Meq Kcl) 20 meq in 1,000 mls @ 100 mls/hr IV .Q10H REESE Stop: 07/09/21 17:29 Last Admin: 06/10/21 05:47 Dose: 100 mls/hr Documented by: Pantoprazole Sodium 40 mg/ (Syringe) 10 mls @ 5 mls/min IV BID REESE Stop: 07/09/21 20:59 Last Admin: 06/10/21 08:15 Dose: 5 mls/min Documented by: Vancomycin HCl 1,000 mg/ (Sodium Chloride) 270 mls @ 200 mls/hr IV Q12H REESE; Protocol Stop: 06/17/21 07:59 Last Infusion: 06/10/21 09:36 Dose: Infused Documented by: Piperacillin Sod/Tazobactam (Sod 3.375 gm/ Dextrose) 115 mls @ 28.75 mls/hr IV Q8H REESE; Protocol Stop: 06/17/21 00:00 Last Infusion: 06/10/21 12:21 Dose: Infused Documented by: Insulin Aspart (Insulin Aspart 100 Units/Ml 3 Ml Pen) 0 units SC ACHS REESE Stop: 07/09/21 17:29 Last Admin: 06/10/21 12:49 Dose: Not Given Documented by: Miscellaneous (Carbohydrates For Hypoglycemia ) 15 - 30 gm PO UD PRN PRN Reason: Hypoglycemia Protocol Stop: 07/09/21 17:05 Miscellaneous Information (Vancomycin Consult Active) 1 ea N/A UD PRN PRN Reason: Consult Stop: 07/09/21 17:40 Miscellaneous Information (Piperacill/Tazobac Consult Active) 1 ea N/A UD PRN PRN Reason: Consult Stop: 07/09/21 17:40 Ondansetron HCl (Ondansetron Inj 2 Mg/Ml 2 Ml Vial) 4 mg IV Q6H PRN PRN Reason: Nausea Stop: 07/09/21 17:05 PG Care Time/CCT Total # of Minutes Spent Total Time Spent with Patient: Total time spent is greater than 50% in coordination of care (as documented) at patient's floor/unit and/or counseling patient: Coding Level of Care Code 96644 Subseq Hosp Care Lvl 3 Diagnoses PAD (peripheral artery disease) I73.9 Dry gangrene I96 Ischemic ulcer of toe of left foot L97.529 Fall W19.XXXA GI bleed K92.2 GI bleed type/associated pathology: unspecified gastrointestinal hemorrhage type Symptomatic anemia D64.9 History of CVA with residual deficit I69.30 Internal carotid artery stent present Z95.828 Elevated troponin I level R77.8 CAD (coronary artery disease), [place] coronary artery I25.10 Stented coronary artery Z95.5 Diabetes mellitus E13.69 Diabetes mellitus complication status: with other specified complication Diabetes mellitus lobsterman insulin use: unspecified penitentiary insulin use status Diabetes mellitus type: other specified (including RODRI) Hyperlipidemia LDL goal <70 E78.5 (1) Diabetes mellitus Diabetes mellitus complication status: with other specified complication Diabetes mellitus penitentiary insulin use: unspecified penitentiary insulin use status Diabetes mellitus type: other specified (including RODRI) Qualified Code(s): E13.69 - Other specified diabetes mellitus with other specified complication (2) GI bleed GI bleed type/associated pathology: unspecified gastrointestinal hemorrhage type Qualified Code(s): K92.2 - Gastrointestinal hemorrhage, unspecified
[2021-06-10] MEDS: CLOPIDOGREL BISULFATE 75 MG TAB PO SCH (16:42)
[2021-06-10] MEDS: ASPIRIN 81 MG ECTAB PO SCH (16:42)
[2021-06-10] MEDS: ATORVASTATIN 40 MG TAB PO SCH (20:27)
[2021-06-10] MEDS: ACETAMINOPHEN 325 MG TAB PO PRN (21:02)
[2021-06-11] MEDS: PIPERACILLIN/TAZOBACTAM 3.375 GM in DEXTROSE 5% 100 ML IV SCH ×4 (00:17→23:42)
[2021-06-11] MEDS: NSS + 20MEQ KCL 20 MEQ/1,000 ML BAG IV SCH ×3 (00:18→20:19)
[2021-06-11] MEDS ORDERED: SODIUM CHLORIDE 0.9% 500 ML IV SCH (07:15)
[2021-06-11] MEDS ORDERED: VANCOMYCIN TROUGH ONE (07:30)
--- NOTE | 2021-06-11 07:43 | Electrocardiogram Report ---
Test Reason : Blood Pressure : / mmHG Vent. Rate : 079 BPM Atrial Rate : 079 BPM P-R Int : 168 ms QRS Dur : 126 ms QT Int : 436 ms P-R-T Axes : 029 -60 072 degrees QTc Int : 499 ms Normal sinus rhythm Left axis deviation Non-specific intra-ventricular conduction block Possible Lateral infarct , age undetermined Abnormal ECG When compared with ECG of 10-JUN-2021 05:39, UT interval has decreased R wave progression is later in the precordial leads. Confirmed by Sharif Ontiveros ([id number]) on 06/11/2021 7:42:22 AM Referred By: REFERRED SELF Confirmed By:Frnaco Ontiveros
[2021-06-11] MEDS: INSULIN ASPART 100 UNITS/ML 3 ML PEN SC SCH ×4 (07:56→20:42)
[2021-06-11] MEDS: VANCOMYCIN HCL 1,000 MG in SODIUM CHLORIDE 0.9% 250 ML IV SCH (07:58)
[2021-06-11] MEDS: ASPIRIN 81 MG ECTAB PO SCH (08:00)
[2021-06-11] MEDS: CLOPIDOGREL BISULFATE 75 MG TAB PO SCH (08:00)
[2021-06-11] MEDS: PANTOprazole 40 MG TAB PO SCH (08:00)
[2021-06-11] MEDS ORDERED: OPTIRAY 320 125ml IV ONE (08:12)
[2021-06-11 09:06] LABS: Basophils # (auto) 0.01 K/uL (0-0.2); Basophils % (auto) 0.1 %; Eosinophils # (auto) 0.01 K/uL (0-0.5); Eosinophils % (auto) 0.1 %; Hematocrit (blood only) 27.2 % (42-52); Hemoglobin 9.4 g/dL (14.0-18.0); Immature Granulocytes # (auto) 0.07 K/uL (0.00-0.02); Immature Granulocytes % (auto) 0.4 %; Lymphocytes # (auto) 0.47 K/uL (1.2-3.4); Lymphocytes % (auto) 2.8 %; Mean Corpuscular Hemoglobin 29.8 pg (25-34); Mean Corpuscular Hgb Conc 34.6 g/dL (32-36); Mean Corpuscular Volume 86.3 fL (80-100); Mean Platelet Volume 8.9 fL (7.4-10.4); Monocytes # (auto) 1.18 K/uL (0.11-0.59); Monocytes % (auto) 7.1 %; Neutrophils # (auto) 14.97 K/uL (1.4-6.5); Neutrophils % (auto) 89.5 %; Platelet Count 350 K/uL (130-400); RDW Coefficient of Variation 14.1 % (11.5-14.5); RDW Standard Deviation 44.1 fL (36.4-46.3); Red Blood Count 3.15 M/uL (4.7-6.1); White Blood Count 16.71 K/uL (4.8-10.8)
[2021-06-11 09:18] LABS: INR 1.1 (0.9-1.1); Partial Thromboplastin Ratio 1.4; Partial Thromboplastin Time 36.2 Seconds (21.0-31.0); Prothrombin Time 11.4 Seconds (9.0-12.0)
[2021-06-11 09:22] LABS: Albumin Level 1.9 gm/dl (3.4-5.0); BUN Creatinine Ratio 30.3 (10-20); Calcium 8.1 mg/dl (8.5-10.1); Creatinine Clr Calc Pharmacy 99.6 ml/min; Est GFR (African American) 111.6 ml/min; Est GFR (Non-African American) 96.3 ml/min; Magnesium 1.7 mg/dl (1.8-2.4); Potassium 3.8 mmol/L (3.5-5.1)
[2021-06-11 09:26] LABS: Albumin Globulin Ratio 0.5 (0.9-2); Bilirubin,Total 1.3 mg/dl (0.2-1); Globulin 3.7 gm/dl (2.5-4.0); Total Protein 5.6 gm/dl (6.4-8.2)
--- NOTE | 2021-06-11 09:44 | CT Scan Report ---
CT angio LE LT w inc wo if don HISTORY: 70 years-old Male severe PA, dry gangrene left big toe severe peripheral arterial disease. Patient presents with reported gangrenous ulcer of the left foot COMPARISON: Lower extremity arterial Doppler 06/09/2021 TECHNIQUE: CTA of the left lower extremity was obtained following the intravenous ministration of 118 mL Optiray 320. 3-D coronal and sagittal MIPS were obtained from the axial data set and were submitt ed for review. All measurements were obtained according to NASCET criteria. FINDINGS: Mild to moderate subcutaneous edema of the lower pretibial tissues. Moderate subcutaneous edema of th e dorsal forefoot. Moderate subcutaneous edema and deep tissue air is noted within the forefoot dorsa l to the first and second metatarsals extending into the first webspace and great toe. The study is m otion degraded. Extensive atherosclerotic plaque. The distal superficial femoral artery and the popliteal artery are patent. Motion degradation limits evaluation of the lower extremity arteries. There is apparent high- grade narrowing of the tibioperoneal trunk. High-grade multifocal stenosis of the anterior, posterior and peroneal arteries with three-vessel flow appearing to extend to level of the ankle. No drainable fluid collection identified. Degenerative changes of the knee and foot. Evaluation for osseous erosions of the forefoot is limited secondary to motion degradation. IMPRESSION: 1. Severe atherosclerotic vascular disease with high-grade stenoses of the tibioperoneal trunk, anter ior and posterior tibial and peroneal arteries. 2. Motion degradation limits the exam. 3. Subcutaneous edema of the lower leg, foot and ankle. Subcutaneous emphysema with deep tissue gas o f the dorsal forefoot and great toe may be secondary to direct extension from soft tissue ulcer versu s necrotizing fasciitis. ACT 112: Negative or not required by law. The above report was generated using voice recognition software. It may contain grammatical, syntax o r spelling errors. Electronically signed by: Edilberto Foy M.D. 06/11/2021 9:42 AM
--- NOTE | 2021-06-11 10:02 | Hospitalist Progress Note ---
Date of Service June 11, 2021 Assessment & Plan (1) PAD (peripheral artery disease): severe stenosis of tibioperoneal trunk severe anterior, posterior tibial artery stenosis severe peroneal artery stenosis consult vascular surgery to see tomorrow (2) Dry gangrene: left treat toe is nearly entirely black, foul odor toe and top of the foot is tender to touch and hurts to walk continue IV antibiotics, WBC is 16k consult vascular surgery to see on Saturday discussed real possibility of amputation of toe, possibly foot, possible BKA or even AKA based on CT angiogram (3) Ischemic ulcer of toe of left foot: patient claims this just happened recently has the appearance of chronic issue now getting worse arterial doppler with left KEYLA of 0.57 suggesting severe disease plan for CT angiogram left leg - severe disease seen (4) Fall: fell outside his home, his knees gave out, did not have strength to get up alone no syncope, he was conscious and remembers everything hold on PT/OT as don't want him putting weight on left foot for time being (5) GI bleed: initially suspected, but Hb of 17 in the spring could have been false or hemoconcentration Hemoglobin upon admission 11.0, then 11.4, most recent 10.2, today it is 9.4 BUN not going up, only 21, does not suggest upper GI bleed Heme positive stools in the ED but he has NOT had any melena and reported no bleeding resume aspirin and Plavix due to severe PAD and dry gangrene Protonix 40 mg PO daily stop fluids allow him to eat/drink (6) Symptomatic anemia: Hb of 11 should not have caused a fall, he had weakness in knees did not have syncope Hb is 9.4 today (7) History of CVA with residual deficit: resume aspirin and Plavix (8) Internal carotid artery stent present: resume aspirin and Plavix (9) Elevated troponin I level: Elevated troponin I level/CAD/stented coronary artery- no chest pain (10) CAD (coronary artery disease), [place] coronary artery: had emergent stent in left main sent for evaluation for CABG at [facility] they recommended CABG but the patient was very nervous, scared due to open heart procedure he has not followed up further, not interested in getting CABG thus medical management will be best we can do (11) Stented coronary artery: See above (12) Diabetes mellitus: Hold Metformin Placed on Accu-Cheks before meals and at bedtime/every 6 hours with NovoLog coverage per scale Check hemoglobin A1c monitor for hypoglycemia, no episodes he has lost 40 lbs intentionally by eating well, strict low carb diet commended him on this (13) Hyperlipidemia LDL goal <70: resume atorvastatin Admission and Anticipated Discharge Date Admission Date: June 09, 2021 Subjective patient doing okay, no major issues overnight reviewed the CTA leg, he has severe PAD labs reviewed, WBC 16k, Hb 9.4, BUN 21 and Cr 0.7, Mag 1.7, bili 1.3, albumin 1.9, alk phos 327 no chest pain, no dyspnea, no fever/chills, + weakness no nausea/vomiting, has not had a BM, says it can take a few days between BM he ate really well for breakfast Review of Systems Review of Systems: All systems reviewed & are unremarkable except as noted in Subjective Constitutional: + weakness Physical Exam Constitutional: well developed, well nourished and + disheveled; no acute di stress Neck: trachea midline, no thyromegaly Respiratory: normal respiratory effort, lungs clear to auscultation Cardiovascular: Rate/Rhythm: regular rate and regular rhythm Heart Sounds: normal S1 and normal S2; no murmur Vessels: no JVD and + abnormal peripheral pulses (greatly diminished PT and DP pulses) Extremities: + abnormal capillary refill (delayed in feet) and no edema Gastrointestinal (Abdomen): normal bowel sounds, soft, nontender, no hepatosplenomegaly Musculoskeletal: Head/Neck/Chest: normocephalic, head atraumatic and neck supple Extremities: strength 5/5 throughout Skin: + wound (left big toe, dry gangrene, skin, very foul odor), + dry skin and + erythema (dark discoloration of feet, signs of vascular insufficiency) Neurologic: patellar DTR's 2+ bilat, sensation intact and PERRL, EOMI, accommodation nl, no face palsy, no dysarthria Psychiatric: Orientation: alert and oriented x 3 Affect: + flat affect Results & Data Results & Data ([facility]) Vital Signs (Past 12 Hours) Vital Signs Temp Pulse Pulse Resp BP Pulse Ox 06/11/21 08:09 36.8 C 84 18 130/73 97 06/11/21 04:05 37.3 C 86 18 135/69 96 06/10/21 23:59 37.1 C 79 18 123/64 96 06/10/21 22:20 82 Laboratory Results Laboratory Results - last 24 hr 06/10/21 06/10/21 06/11/21 11:50 20:31 07:32 WBC 16.71 H RBC 3.15 L Hgb 9.4 L Hct 27.2 L MCV 86.3 MCH 29.8 MCHC 34.6 RDW Std Deviation 44.1 RDW Coeff of Vel 14.1 Plt Count 350 MPV 8.9 Immature Gran % (Auto) 0.4 Neut % (Auto) 89.5 Lymph % (Auto) 2.8 Wheeler % (Auto) 7.1 Eos % (Auto) 0.1 Baso % (Auto) 0.1 Neut # (Auto) 14.97 H Lymph # (Auto) 0.47 L Wheeler # (Auto) 1.18 H Eos # (Auto) 0.01 Baso # (Auto) 0.01 Immature Gran # (Auto) 0.07 H PT INR APTT PTT Ratio Sodium Potassium Chloride Carbon Dioxide Anion Gap BUN Creatinine Est Cr Clr Drug Dosing Est GFR ( Amer) Est GFR (Non-Af Amer) BUN/Creatinine Ratio Glucose POC Glucose 110 H 115 H Calcium Magnesium Total Bilirubin AST ALT Alkaline Phosphatase Total Protein Albumin Globulin Albumin/Globulin Ratio Vancomycin Trough 06/11/21 06/11/21 06/11/21 07:32 07:32 07:32 WBC RBC Hgb Hct MCV MCH MCHC RDW Std Deviation RDW Coeff of Vel Plt Count MPV Immature Gran % (Auto) Neut % (Auto) Lymph % (Auto) Wheeler % (Auto) Eos % (Auto) Baso % (Auto) Neut # (Auto) Lymph # (Auto) Wheeler # (Auto) Eos # (Auto) Baso # (Auto) Immature Gran # (Auto) PT 11.4 INR 1.1 APTT 36.2 H PTT Ratio 1.4 Sodium 135 L Potassium 3.8 Chloride 106 Carbon Dioxide 21 Anion Gap 7.0 BUN 21 H Creatinine 0.70 Est Cr Clr Drug Dosing 99.6 Est GFR ( Amer) 111.6 Est GFR (Non-Af Amer) 96.3 BUN/Creatinine Ratio 30.3 H Glucose 100 H POC Glucose Calcium 8.1 L Magnesium 1.7 L Total Bilirubin 1.3 H AST 93 H ALT 89 H Alkaline Phosphatase 327 H Total Protein 5.6 L Albumin 1.9 L Globulin 3.7 Albumin/Globulin Ratio 0.5 L Vancomycin Trough 13.2 06/11/21 07:54 WBC RBC Hgb Hct MCV MCH MCHC RDW Std Deviation RDW Coeff of Vel Plt Count MPV Immature Gran % (Auto) Neut % (Auto) Lymph % (Auto) Wheeler % (Auto) Eos % (Auto) Baso % (Auto) Neut # (Auto) Lymph # (Auto) Wheeler # (Auto) Eos # (Auto) Baso # (Auto) Immature Gran # (Auto) PT INR APTT PTT Ratio Sodium Potassium Chloride Carbon Dioxide Anion Gap BUN Creatinine Est Cr Clr Drug Dosing Est GFR ( Amer) Est GFR (Non-Af Amer) BUN/Creatinine Ratio Glucose POC Glucose 107 H Calcium Magnesium Total Bilirubin AST ALT Alkaline Phosphatase Total Protein Albumin Globulin Albumin/Globulin Ratio Vancomycin Trough Diagnostic Findings CT angiogram left leg IMPRESSION: 1. Severe atherosclerotic vascular disease with high-grade stenoses of the tibioperoneal trunk, anterior and posterior tibial and peroneal arteries. 2. Motion degradation limits the exam. 3. Subcutaneous edema of the lower leg, foot and ankle. Subcutaneous emphysema with deep tissue gas of the dorsal forefoot and great toe may be secondary to direct extension from soft tissue ulcer versus necrotizing fasciitis. Medications Administered Current Inpatient Medications Acetaminophen (Acetaminophen 325 Mg Tab) 650 mg PO Q4H PRN PRN Reason: pain or fever Stop: 07/10/21 20:47 Last Admin: 06/10/21 21:02 Dose: 650 mg Documented by: Aspirin (Aspirin 81 Mg Ectab) [facility] [place]: 07/10/21 16:29 Last Admin: 06/11/21 08:00 Dose: 81 mg Documented by: Atorvastatin Calcium (Atorvastatin 40 Mg Tab) 80 mg PO [facility] Stop: 07/10/21 20:59 Last Admin: 06/10/21 20:27 Dose: 80 mg Documented by: Clopidogrel Bisulfate (Clopidogrel Bisulfate 75 Mg Tab) 75 mg PO Q[facility] Stop: 07/10/21 16:29 Last Admin: 06/11/21 08:00 Dose: 75 mg Documented by: Dextrose (Dextrose 50% 50 Ml Syringe) 25 - 50 ml IV UD PRN; Protocol PRN Reason: Hypoglycemia Protocol Stop: 07/09/21 17:05 Glucagon (Glucagon For Inj 1 Mg Vial) 1 mg SQ UD PRN; Protocol PRN Reason: Hypoglycemia Protocol Stop: 07/09/21 17:05 Glucose (Glucose 10 Tabs/Tube) 4 - 8 tabs PO UD PRN; Protocol PRN Reason: Hypoglycemia Protocol Stop: 07/09/21 17:05 Glucose (Glucose 40% Gel 15 Gm Tube) 15 - 30 gm PO UD PRN; Protocol PRN Reason: Hypoglycemia Protocol Stop: 07/09/21 17:05 Potassium Chloride/Sodium Chloride (Normal Saline W/20 Meq Kcl) 20 meq in 1,000 mls @ 100 mls/hr IV .Q10H REESE Stop: 07/09/21 17:29 Last Admin: 06/11/21 00:18 Dose: 100 mls/hr Documented by: Vancomycin HCl 1,000 mg/ (Sodium Chloride) 270 mls @ 200 mls/hr IV Q12H REESE; Protocol Stop: 06/17/21 07:59 Last Admin: 06/11/21 07:58 Dose: 200 mls/hr Documented by: Piperacillin Sod/Tazobactam (Sod 3.375 gm/ Dextrose) 115 mls @ 28.75 mls/hr IV Q8H REESE; Protocol Stop: 06/17/21 00:00 Last Admin: 06/11/21 07:57 Dose: 28.8 mls/hr Documented by: Sodium Chloride (Nss) 500 mls @ 125 mls/hr IV .Q4H REESE Stop: 06/11/21 11:14 Last Admin: 06/11/21 07:59 Dose: 125 mls/hr Documented by: Magnesium Sulfate/Dextrose (Magnesium Sulfate / D5w) 1 gm in 100 mls @ 50 mls/hr IV ONE ONE Stop: 06/11/21 12:14 Insulin Aspart (Insulin Aspart 100 Units/Ml 3 Ml Pen) 0 units SC ACHS REESE Stop: 07/09/21 17:29 Last Admin: 06/11/21 07:56 Dose: Not Given Documented by: Miscellaneous (Carbohydrates For Hypoglycemia ) 15 - 30 gm PO UD PRN PRN Reason: Hypoglycemia Protocol Stop: 07/09/21 17:05 Miscellaneous Information (Vancomycin Consult Active) 1 ea N/A UD PRN PRN Reason: Consult Stop: 07/09/21 17:40 Miscellaneous Information (Piperacill/Tazobac Consult Active) 1 ea N/A UD PRN PRN Reason: Consult Stop: 07/09/21 17:40 Morphine Sulfate (Morphine Sulfate 2 Mg/Ml Carp) 2 mg IV Q6H PRN PRN Reason: severe pain Stop: 06/24/21 20:47 Ondansetron HCl (Ondansetron Inj 2 Mg/Ml 2 Ml Vial) 4 mg IV Q6H PRN PRN Reason: Nausea Stop: 07/09/21 17:05 Pantoprazole Sodium (Pantoprazole 40 Mg Tab) 40 mg PO QAM REESE Stop: 07/11/21 08:59 Last Admin: 06/11/21 08:00 Dose: 40 mg Documented by: PG Care Time/CCT Total # of Minutes Spent Total Time Spent with Patient: Total time spent is greater than 50% in coordination of care (as documented) at patient's floor/unit and/or counseling patient: Coding Level of Care Code 25603 Subseq Hosp Care Lvl 3 Diagnoses PAD (peripheral artery disease) I73.9 Dry gangrene I96 Ischemic ulcer of toe of left foot L97.529 Fall W19.XXXA GI bleed K92.2 GI bleed type/associated pathology: unspecified gastrointestinal hemorrhage type Symptomatic anemia D64.9 History of CVA with residual deficit I69.30 Internal carotid artery stent present Z95.828 Elevated troponin I level R77.8 CAD (coronary artery disease), [place] coronary artery I25.10 Stented coronary artery Z95.5 Diabetes mellitus E13.69 Diabetes mellitus complication status: with other specified complication Diabetes mellitus roasterman insulin use: unspecified group home insulin use status Diabetes mellitus type: other specified (including RODRI) Hyperlipidemia LDL goal <70 E78.5 (1) Diabetes mellitus Diabetes mellitus complication status: with other specified complication Diabetes mellitus roasterman insulin use: unspecified group home insulin use status Diabetes mellitus type: other specified (including RODRI) Qualified Code(s): E13.69 - Other specified diabetes mellitus with other specified complication (2) GI bleed GI bleed type/associated pathology: unspecified gastrointestinal hemorrhage type Qualified Code(s): K92.2 - Gastrointestinal hemorrhage, unspecified
[2021-06-11] MEDS ORDERED: MAGNESIUM SULFATE / D5W 1 GM/100 ML BAG IV ONE (10:15)
--- NOTE | 2021-06-11 10:25 | Cardiology Progress Note ---
Date of Service June 11, 2021 Assessment & Plan (1) CAD (coronary artery disease), redding coronary artery: Known severe coronary artery disease with NSTEMI in January of this year. He has been evaluated by the cardiovascular surgeons at [facility] and was advised to undergo bypass surgery based on his residual coronary disease and cardiomyopathy. However, the patient told me that he does not have a current interest in proceeding with surgery. No current symptoms suggestive of an acute coronary syndrome, coronary insufficiency or angina. Dual anti-platelet therapy was restarted yesterday. (2) Elevated troponin I level: Continues to have mildly elevated cardiac biomarkers, slowly trending upward. Likely due to his known coronary disease and cardiomyopathy. No current symptoms suggestive of an acute coronary syndrome. Dual anti-platelet therapy restarted yesterday. Continue beta-blockade as well. (3) LBBB (left bundle branch block): His EKG is not a classic left bundle branch block. It is more consistent with a nonspecific intraventricular conduction delay. No ST segment changes of concern currently. (4) Peripheral vascular disease: CT angiogram of the lower extremities performed today due to his gangrenous left foot. This revealed significant distal vessel disease. It seems he will likely require surgical intervention. (5) Mitral regurgitation: Mild on the echocardiogram performed today. There was some concern that his regurgitation was more moderate on prior studies at [facility]. This may need to be evaluated more thoroughly should he agree to have bypass surgery. (6) Ischemic cardiomyopathy: He has reduced LV systolic function. He is not currently manifesting symptoms of decompensation. He is on a medical regimen which consists of metoprolol succinate and lisinopril. Admission and Anticipated Discharge Date Admission Date: June 09, 2021 Subjective This morning the patient claims to be feeling well. Some discomfort involving the left foot. Not severe. No ambulation. Tolerating his diet. No symptoms of chest discomfort or significant breathing difficulty. No sense of arrhy thmia. No dizziness or lightheadedness. No abdominal discomfort. Review of Systems Review of Systems: Per HPI Physical Exam Physical Exam: The patient is alert and oriented. Mood and affect appeared normal. He answered all questions appropriately. HEENT: Pupils are equal and reactive to light and accommodation. Extraocular movements are intact. The sclerae are anicteric. Neuro: Cranial nerves intact Lungs: Normal respiratory effort Cardiac: Heart demonstrates a regular rate and rhythm. Normal S1 and S2. Soft holosystolic murmur. Abdomen: Nondistended. Extremities: No edema. Left foot with gangrenous toes and marked erythema involving the majority of the left foot Skin: I did not appreciate any additional rashes on examination today. Results & Data ([facility]) Vital Signs (Past 12 Hours) Vital Signs Temp Pulse Resp BP Pulse Ox 06/11/21 08:09 36.8 C 84 18 130/73 97 06/11/21 04:05 37.3 C 86 18 135/69 96 06/10/21 23:59 37.1 C 79 18 123/64 96 Laboratory Results Abnormal Lab Results 06/10/21 06/10/21 06/11/21 11:50 20:31 07:32 WBC 16.71 H RBC 3.15 L Hgb 9.4 L Hct 27.2 L MCV 86.3 MCH 29.8 MCHC 34.6 RDW Std Deviation 44.1 RDW Coeff of Vel 14.1 Plt Count 350 MPV 8.9 Immature Gran % (Auto) 0.4 Neut % (Auto) 89.5 Lymph % (Auto) 2.8 Coos % (Auto) 7.1 Eos % (Auto) 0.1 Baso % (Auto) 0.1 Neut # (Auto) 14.97 H Lymph # (Auto) 0.47 L [place] # (Auto) 1.18 H Eos # (Auto) 0.01 Baso # (Auto) 0.01 Immature Gran # (Auto) 0.07 H PT INR APTT PTT Ratio Sodium Potassium Chloride Carbon Dioxide Anion Gap BUN Creatinine Est Cr Clr Drug Dosing Est GFR ( Amer) Est GFR (Non-Af Amer) BUN/Creatinine Ratio Glucose POC Glucose 110 H 115 H Calcium Magnesium Total Bilirubin AST ALT Alkaline Phosphatase Total Protein Albumin Globulin Albumin/Globulin Ratio Vancomycin Trough 06/11/21 06/11/21 06/11/21 07:32 07:32 07:32 WBC RBC Hgb Hct MCV MCH MCHC RDW Std Deviation RDW Coeff of Vel Plt Count MPV Immature Gran % (Auto) Neut % (Auto) Lymph % (Auto) [place] % (Auto) Eos % (Auto) Baso % (Auto) Neut # (Auto) Lymph # (Auto) [place] # (Auto) Eos # (Auto) Baso # (Auto) Immature Gran # (Auto) PT 11.4 INR 1.1 APTT 36.2 H PTT Ratio 1.4 Sodium 135 L Potassium 3.8 Chloride 106 Carbon Dioxide 21 Anion Gap 7.0 BUN 21 H Creatinine 0.70 Est Cr Clr Drug Dosing 99.6 Est GFR ( Amer) 111.6 Est GFR (Non-Af Amer) 96.3 BUN/Creatinine Ratio 30.3 H Glucose 100 H POC Glucose Calcium 8.1 L Magnesium 1.7 L Total Bilirubin 1.3 H AST 93 H ALT 89 H Alkaline Phosphatase 327 H Total Protein 5.6 L Albumin 1.9 L Globulin 3.7 Albumin/Globulin Ratio 0.5 L Vancomycin Trough 13.2 06/11/21 07:54 WBC RBC Hgb Hct MCV MCH MCHC RDW Std Deviation RDW Coeff of Vel Plt Count MPV Immature Gran % (Auto) Neut % (Auto) Lymph % (Auto) [place] % (Auto) Eos % (Auto) Baso % (Auto) Neut # (Auto) Lymph # (Auto) [place]os # (Auto) Eos # (Auto) Baso # (Auto) Immature Gran # (Auto) PT INR APTT PTT Ratio Sodium Potassium Chloride Carbon Dioxide Anion Gap BUN Creatinine Est Cr Clr Drug Dosing Est GFR ( Amer) Est GFR (Non-Af Amer) BUN/Creatinine Ratio Glucose POC Glucose 107 H Calcium Magnesium Total Bilirubin AST ALT Alkaline Phosphatase Total Protein Albumin Globulin Albumin/Globulin Ratio Vancomycin Trough Diagnostic Findings Cardiac catheterization 02/12/2021: Acute coronary syndrome involving the dist al left main. 99% distal calcified stenosis of the left main coronary. 80-90% long proximal stenosis of the LAD with mid and distal disease. Large nondominant circumflex with subtotal occlusion distal to OM 3, dominant RCA with focal 80% mid lesion and diffuse moderate disease involving the PDA and PLB. PCI with 3 drug-eluting stents to the distal left main and proximal LAD. (intra-aortic balloon pump required temporarily) Echocardiogram performed today revealed moderately reduced LV systolic function with ejection fraction around 35%. There regional wall motion abnormalities consistent with his known coronary disease. Mild mitral regurgitation. Mildly dilated aortic root. PG Care Time/CCT Total # of Minutes Spent Total Time Spent with Patient: Total time spent is greater than 50% in coordination of care (as documented) at patient's floor/unit and/or counseling patient: Coding Level of Care Code 53607 Subseq Hosp Care Lvl 2 Diagnoses CAD (coronary artery disease), redding coronary artery I25.10 Elevated troponin I level R77.8 LBBB (left bundle branch block) I44.7 Peripheral vascular disease I73.9 Mitral regurgitation I34.0 Ischemic cardiomyopathy I25.5
--- NOTE | 2021-06-11 15:35 | Pharmacy Report ---
Pharmacy Abx Dose Short Note - Date of Service June 11, 2021 - Assessment & Plan Assessment 70 year old M receiving Vancomycin for treatment of L great toe gangrene. Patient is also on Zosyn for this indication. Pertinent microbiologic data includes: L foot wound culture growing Staph sp. Patient had been on Vancomycin 1000 mg IV q12h based on AUC dosing nomogram. Trough level obtained this AM after 3 doses of Vanco is 13.2 mcg/ml. Day #3 of antimicrobial therapy. Laboratory Tests 06/11/21 07:32 Vancomycin Trough 13.2 Plan Vancomycin * AUC/MIGUEL is the preferred PK/PD target for vancomycin * AUC guided dosing is effective and associated with decreased risk of nephrotoxicity compared to traditional trough targets * Trough level of 13.2 mcg/mL is predicted to achieve target AUC/MIGUEL of 412. * Vancomycin 1250 mg IV q12h should achieve an of AUC/MIGUEL of 520 with 91% probability that AUC is > 400. Therefore, dosing was increased to 1250 mg IV q12h. Predicted trough level for this dosing is ~ 15 mcg/ml. * Trough Vanco level ordered for: 06/13 before dose at 8 AM. Pharmacy will continue to follow and will adjust dose/frequency as necessary. Thank you.
[2021-06-11] MEDS: MoRPHine SULFATE 2 MG/ML CARP IV PRN (20:15)
[2021-06-11] MEDS: ATORVASTATIN 40 MG TAB PO SCH (20:19)
[2021-06-11] MEDS: VANCOMYCIN HCL 1,250 MG in SODIUM CHLORIDE 0.9% 250 ML IV SCH (20:19)
[2021-06-12] MEDS: ACETAMINOPHEN 325 MG TAB PO PRN (02:52)
[2021-06-12] MEDS: NSS + 20MEQ KCL 20 MEQ/1,000 ML BAG IV SCH ×2 (06:33→18:47)
[2021-06-12] MEDS: MoRPHine SULFATE 2 MG/ML CARP IV PRN (06:41)
[2021-06-12 06:43] LABS: Basophils # (auto) 0.03 K/uL (0-0.2); Basophils % (auto) 0.2 %; Eosinophils # (auto) 0.05 K/uL (0-0.5); Eosinophils % (auto) 0.3 %; Hematocrit (blood only) 26.2 % (42-52); Hemoglobin 8.9 g/dL (14.0-18.0); Immature Granulocytes # (auto) 0.03 K/uL (0.00-0.02); Immature Granulocytes % (auto) 0.2 %; Lymphocytes # (auto) 0.75 K/uL (1.2-3.4); Lymphocytes % (auto) 5.1 %; Mean Corpuscular Hemoglobin 29.6 pg (25-34); Mean Platelet Volume 8.7 fL (7.4-10.4); Monocytes # (auto) 0.98 K/uL (0.11-0.59); Monocytes % (auto) 6.7 %; Neutrophils # (auto) 12.74 K/uL (1.4-6.5); Neutrophils % (auto) 87.5 %; Platelet Count 342 K/uL (130-400); RDW Coefficient of Variation 14.1 % (11.5-14.5); RDW Standard Deviation 45.2 fL (36.4-46.3); Red Blood Count 3.01 M/uL (4.7-6.1); White Blood Count 14.58 K/uL (4.8-10.8)
[2021-06-12 06:59] LABS: INR 1.2 (0.9-1.1); Partial Thromboplastin Ratio 1.4; Partial Thromboplastin Time 36.1 Seconds (21.0-31.0); Prothrombin Time 11.8 Seconds (9.0-12.0)
[2021-06-12 07:11] LABS: Albumin Level 1.8 gm/dl (3.4-5.0); BUN Creatinine Ratio 22.5 (10-20); Calcium 7.7 mg/dl (8.5-10.1); Creatinine Clr Calc Pharmacy 99.3 ml/min; Est GFR (African American) 107.9 ml/min; Est GFR (Non-African American) 93.1 ml/min; Magnesium 1.8 mg/dl (1.8-2.4); Potassium 3.6 mmol/L (3.5-5.1)
[2021-06-12 07:14] LABS: Albumin Globulin Ratio 0.5 (0.9-2); Bilirubin,Total 1.3 mg/dl (0.2-1); Globulin 3.5 gm/dl (2.5-4.0); Total Protein 5.3 gm/dl (6.4-8.2)
[2021-06-12] MEDS ORDERED: METOPROLOL SUCC 50MG EXT REL TAB PO STA (08:28)
[2021-06-12] MEDS: INSULIN ASPART 100 UNITS/ML 3 ML PEN SC SCH ×4 (08:45→21:43)
[2021-06-12] MEDS: PIPERACILLIN/TAZOBACTAM 3.375 GM in DEXTROSE 5% 100 ML IV SCH ×2 (08:51→18:08)
[2021-06-12] MEDS: ASPIRIN 81 MG ECTAB PO SCH (08:52)
[2021-06-12] MEDS: PANTOprazole 40 MG TAB PO SCH (08:52)
[2021-06-12] MEDS: CLOPIDOGREL BISULFATE 75 MG TAB PO SCH (08:52)
[2021-06-12] MEDS: VANCOMYCIN HCL 1,250 MG in SODIUM CHLORIDE 0.9% 250 ML IV SCH ×3 (09:05→23:00)
--- NOTE | 2021-06-12 10:32 | Ultrasound Report ---
US liver CLINICAL HISTORY: elevated LFTs,lesions on CT COMPARISON STUDY: CT scan dated 06/09/2021 FINDINGS: There are 2 hyperechoic lesions within the right lobe the liver. These measure 46 x 28 x 26 mm, and 14 x 14 x 11 mm. The lesions are consistent with although not specific for hepatic hemangiom as. There is mild gallbladder wall thickening. No calculi were visualized. The gallbladder was relatively contracted. There is no ductal dilatation. Common bile duct was not well-visualized but appeared to measure 4 mm. There is no right-sided hydronephrosis. IMPRESSION: 1. 2 hyperechoic right lobe hepatic lesions were visualized. These lesions are consistent with althou gh not specific for hepatic hemangiomas 2. Mild gallbladder wall thickening which may be secondary to gallbladder contraction. ACT 112: Negative or not required by law. Electronically signed by: Talib Gutierrez M.D. 06/12/2021 10:31 AM
--- NOTE | 2021-06-12 10:48 | Consultation ---
Date of Consultation June 12, 2021 Assessment & Plan (1) PAD (peripheral artery disease): Pt with moderate PAD and a significant infection of the L foot with gangrene. No indications for vascular surgical intervention at this time. Do recommend pt undergo orthopedic eval for definitive surgical treatment of L foot infection. Will be happy to reeval the pt if surgical wounds are nonhealing. Please call if needed. History of Present Illness Reason for Consultation: PAD, LLE ulcer Attending Physician: Jessenia Albarado MD History of Present Illness 70 yo m with hx of DMII, NSTEMI, CAD, LBBB, carotid stenosis s/p L carotid stent at [facility] [place], admitted after collapsing at his mailbox and found to have possible GI bleed, and elevated troponin levels, seen in consultation today for PAD after L foot gangrene noted. Pt denies pain or injury to L foot, and states he did not notice any discoloration prior to coming to [facility]. Denies any claudication sx, states he can walk about 1/2 mile before stopping. Denies rest pain, fever, chills, recent illness, chest pain, SOB, abd pain, N/V, other complaints. L leg arterial US demonstrates triphasic flow to popliteal, then a possible TP trunk lesion with distal reconstitution and 3 vessel runoff to foot. LLE CTA demonstrates TP trunk occlusion with reconstitution and 3 vessel runoff to foot. Allergies Allergy/AdvReac Type Severity Reaction Status Date / Time No Known Allergies Allergy Unverified 06/09/21 13:36 Home Medications Medication Instructions Recorded Confirmed Type aspirin [Aspir-81] 81 mg PO QAM 06/09/21 06/09/21 History atorvastatin [Lipitor] 80 mg PO HS 06/09/21 06/09/21 History clopidogrel [Plavix] 75 mg PO QAM 06/09/21 06/09/21 History folic acid-B rhqd-F-sfvjy-zinc 1 tab PO QAM 06/09/21 06/09/21 History lisinopril [Zestril] 20 mg PO QAM 06/09/21 06/09/21 History metformin 1,000 mg PO BIDM 06/09/21 06/09/21 History metoprolol succinate [Toprol XL] 100 mg PO BIDM 06/09/21 06/09/21 History Patient History Medical History CAD (coronary artery disease), [place] coronary artery 02/12/2021: PCI with HERNANDEZ to the distal left main and proximal LAD. Additional distal LAD disease. Large non dominant left circumflex with moderate diffuse disease. Long subtotal occlusion of the distal vessel. Large dominant RCA with focal 70-80% lesion in the mid vessel. Diffuse fadd-up-joxmaqjm distal disease. Diabetes mellitus Family history non-contributory Hyperlipidemia LDL goal <70 Internal carotid artery stent present Surgical History No history of previous surgery Stented coronary artery Family History Other Family history non-contributory Social History Smoking Status: Former smoker Hx Alcohol Use: No Hx Substance Use: No Preferred Language: Belarusian Communication Ability: Effective [employer] Required: No Beliefs That Will Affect Care: None Current Living Situation: Alone Current Living Situation Comment: unknown Feels Safe at Home: Yes Assistive Devices: Wheelchair Review of Systems Review of Systems: All systems reviewed & are unremarkable except as noted in HPI & below Physical Exam Constitutional: WD/WN, vitals as above cooperative; not in distress ENMT: Ears: no hearing impairment Neck: trachea midline Respiratory: normal respiratory effort, lungs clear to auscultation Auscultation: + diminished lung sounds Cardiovascular: Rate/Rhythm: regular rate and regular rhythm Vessels: femoral pulses present, posterior tibial pulses present (dopplerable BLE), dorsalis pedis pulses present (dopplerable BLE) and radial pulses present; + abnormal peripheral pulses Extremities: normal capillary refill (RLE) and + edema Gastrointestinal (Abdomen): normal bowel sounds, soft, nontender, no hepatosplenomegaly Musculoskeletal: Extremities: strength 5/5 throughout Skin: + eschar (L foot copious foul smelling purulent drainage, e rythema/warmth/induration) Neurologic: moves all extremities and awake; no focal motor deficits and not confused Psychiatric: A+Ox3, euthymic affect Results & Data ([place]) Vital Signs (Past 12 Hours) Vital Signs Temp Pulse Pulse Resp BP Pulse Ox 06/12/21 09:12 91 H 130/74 06/12/21 07:27 37.2 C 107 H 20 123/80 94 06/12/21 05:39 116 H 116/80 96 06/12/21 04:30 37.5 C 06/12/21 02:44 38.0 C H 92 H 22 138/88 95 06/11/21 23:42 37.6 C H 96 H 16 138/76 94
--- NOTE | 2021-06-12 13:39 | Pharmacy Report ---
Pharmacy Vanc AUC Short Note - Date of Service June 11, 2021 - Assessment & Plan Assessment 70 year old M receiving Vancomycin for treatment of L great toe gangrene. Patient is also on Zosyn for this indication. Pertinent microbiologic data includes: L foot wound culture growing Staph sp. Patient had been on Vancomycin 1000 mg IV q12h based on AUC dosing nomogram. Trough level obtained this AM after 3 doses of Vanco is 13.2 mcg/ml. Day #3 of antimicrobial therapy. Plan Vancomycin * AUC/MIGUEL is the preferred PK/PD target for vancomycin * AUC guided dosing is effective and associated with decreased risk of nephrotoxicity compared to traditional trough targets * Trough level of [] mcg/mL is predicted to achieve target AUC/MIGUEL of 400-600 mg/L.hr and may be associated with a [] % risk of nephrotoxicity * Continue dose of [] mg IV every [] hours OR Change to [] mg IV every [] hours * Trough or random level ordered for: []/[]/[] Pharmacy will continue to follow and will adjust dose/frequency as necessary. Thank you.
--- NOTE | 2021-06-12 17:36 | Hospitalist Progress Note ---
Date of Service June 12, 2021 Assessment & Plan (1) Dry gangrene: left great toe is nearly entirely black, foul odor Wound culture growing MRSA Continues with leukocytosis, fever, significant tenderness, edema, and erythema spreading up the distal leg toe and top of the foot is tender to touch and hurts to walk Appreciate vascular surgery consultation-he does have flow to the foot despite the severe PAD and they do not recommend vascular surgical intervention at this time, however recommend orthopedic intervention -Consult orthopedic surgery -Check MRI of left foot -Leukocytosis is improving today -Continue vancomycin cover for MRSA and Zosyn to cover for anaerobes and gram negatives -Follow blood cultures-no growth to date -Follow CBC, CMP (2) Fever: As above, secondary to left foot infection -DC IV fluids (3) PAD (peripheral artery disease): severe stenosis of tibioperoneal trunk severe anterior, posterior tibial artery stenosis severe peroneal artery stenosis Does have flow likely collaterals to the left foot consult vascular surgery appreciated as above-no intervention at this time (4) Ischemic ulcer of toe of left foot: patient claims this just happened recently has the appearance of chronic issue now getting worse arterial doppler with left KEYLA of 0.57 suggesting severe disease plan for CT angiogram left leg - severe disease seen as noted above Continue dual antiplatelet therapy, statin (5) Fall: fell outside his home, his knees gave out, did not have strength to get up alone no syncope, he was conscious and remembers everything hold on PT/OT as don't want him putting weight on left foot for time being -Likely secondary to generalized weakness from infection (6) GI bleed: initially suspected, but Hb of 17 in the spring could have been false or hemoconcentration Hemoglobin upon admission 11.0, then 11.4, then 10.2, 9.4, and today it is 8.9 BUN not going up, only 17, does not suggest upper GI bleed Heme positive stools in the ED but he has NOT had any melena and reported no bleeding Have since resumed aspirin and Plavix due to severe PAD and dry gangrene Continue Protonix 40 mg PO daily (7) Symptomatic anemia: Hb of 11 should not have caused a fall, he had weakness in knees did not have syncope Hemoglobin 8.9 today as above DC IV fluids, may be some hemodilution Also with Hemoccult stool positive as above (8) History of CVA with residual deficit: Continue aspirin and Plavix (9) Internal carotid artery stent present: Continue aspirin and Plavix, statin (10) Elevated troponin I level: Elevated troponin I level/CAD/stented coronary artery- no chest pain, myocardial demand ischemia (11) CAD (coronary artery disease), [place] coronary artery: had emergent stent in left main in 01/2021 sent for evaluation for CABG at [place] they recommended CABG but the patient was very nervous, scared due to open heart procedure he has not followed up further, not interested in getting CABG thus medical management will be best we can do Continue aspirin, Plavix, statin, metoprolol (12) Stented coronary artery: See above (13) Diabetes mellitus: Hold Metformin while inpatient and receiving IV dye Placed on Accu-Cheks before meals and at bedtime/every 6 hours with NovoLog coverage per scale hemoglobin A1c with much improved control down 7.4 from 11.4 in January monitor for hypoglycemia, no episodes he has lost 40 lbs intentionally by eating well, strict low carb diet (14) Hyperlipidemia LDL goal <70: Continue atorvastatin (15) Ischemic cardiomyopathy: With moderately reduced LV function Add back metoprolol Consider adding SURYA or ARB Needs revascularization but is declining to have CABG (16) Elevated transaminase level: Total bilirubin mildly elevated, AST, ALT, and alkaline phosphatase all elevated but slightly improved today from previous Liver ultrasound ordered today-shows 2 larger hemangiomas, and mildly thickened gallbladder but it was contracted this patient was not fasting He has no abdominal pain, suspect could be secondary to ongoing infection or side effect of antibiotics Follow LFTs in the morning (17) Diarrhea: In the setting of IV antibiotics Check C. difficile (18) Urinary retention: Requiring straight cath x2 on 06/12 Has a history of nocturia prior to admission Add Flomax Place Allen catheter if needs persistent straight catheterization Continue bladder scans every shift (19) Anemia: As above, hemoglobin 8.9 Follow CBC (20) Paroxysmal atrial fibrillation: had Afib x 4 hours on AM of 06/12 Continue to monitor on telemetry He is not a good candidate for anticoagulation at this time given Hemoccult positive stool and declining hemoglobin It was short-lived Add metoprolol back on (21) DVT prophylaxis: SCDs only given Hemoccult positive stool Disposition if continued stay in PCU Admission and Anticipated Discharge Date Admission Date: June 09, 2021 Subjective Patient reports pain and twitching at times in his left foot and like. Denies chest pain shortness of breath. He does not feel well in general is having a lot of abdominal cramping and loose stools and frequent stools today. He is also retaining urine and had to be straight cathed this morning. When I saw him this afternoon, he was about to get straight cathed again. He reports he normally has nocturia 3 times per night at home I discussed his care with orthopedic surgery PA today. Telemetry with atrial fibrillation with rates in the 90s to 110s for about 4 hours this morning, then sinus rhythm since then. Review of Systems Review of Systems: All systems reviewed & are unremarkable except as noted in HPI & below Physical Exam Constitutional: WD/WN, vitals as above Eyes: + anicteric sclerae Neck: trachea midline, no thyromegaly Respiratory: normal respiratory effort, lungs clear to auscultation Cardiovascular: Rate/Rhythm: regular rate and regular rhythm Heart Sounds: + murmur (2/6 to the left sternal border) Extremities: + edema (Left distal leg with 1+ pitting edema) Chest (Breasts): Chest: normal inspection of chest Gastrointestinal (Abdomen): normal bowel sounds, soft, nontender, no hepatosplenomegaly Musculoskeletal: Extremities: no cyanosis and no clubbing Skin: + erythema (Mild erythema in the distal leg above the dressing over the foot) Left foot dressed in bandage, not removed, foul odor emanating Neurologic: moves all extremities and awake; no focal motor deficits Psychiatric: A+Ox3, euthymic affect Lymphatic: no lymphedema Results & Data Results & Data ([facility]) Vital Signs (Past 12 Hours) Vital Signs Temp Pulse Pulse Pulse Resp BP Pulse Ox 06/12/21 15:50 94 H 06/12/21 11:25 36.8 C 84 18 122/78 96 06/12/21 09:12 91 H 130/74 06/12/21 07:27 37.2 C 107 H 20 123/80 94 06/12/21 05:39 116 H 116/80 96 Laboratory Results 06/12/21 06/12/21 06/12/21 Range/Units Unknown 16:37 11:29 WBC (4.8-10.8) K/uL RBC (4.7-6.1) M/uL Hgb (14.0-18.0) g/dL Hct (42-52) % MCV (80-100) fL MCH (25-34) pg MCHC (32-36) g/dL RDW Std Deviation (36.4-46.3) fL RDW Coeff of Vel (11.5-14.5) % Plt Count (130-400) K/uL MPV (7.4-10.4) fL Immature Gran % (Auto) % Neut % (Auto) % Lymph % (Auto) % Power % (Auto) % Eos % (Auto) % Baso % (Auto) % Neut # (Auto) (1.4-6.5) K/uL Lymph # (Auto) (1.2-3.4) K/uL Power # (Auto) (0.11-0.59) K/uL Eos # (Auto) (0-0.5) K/uL Baso # (Auto) (0-0.2) K/uL Immature Gran # (Auto) (0.00-0.02) K/uL PT (9.0-12.0) Seconds INR (0.9-1.1) APTT (21.0-31.0) Seconds PTT Ratio Sodium (136-145) mmol/L Potassium (3.5-5.1) mmol/L Chloride (98-107) mmol/L Carbon Dioxide (21-32) mmol/L Anion Gap (3-11) BUN (7-18) mg/dl Creatinine (0.6-1.4) mg/dl Est Cr Clr Drug Dosing ml/min Est GFR ( Amer) ml/min Est GFR (Non-Af Amer) ml/min BUN/Creatinine Ratio (10-20) Glucose (70-99) mg/dl POC Glucose 163 H 175 H (70-99) mg/dl Calcium (8.5-10.1) mg/dl Magnesium (1.8-2.4) mg/dl Total Bilirubin (0.2-1) mg/dl AST (15-37) U/L ALT (12-78) U/L Alkaline Phosphatase (45-117) U/L Total Protein (6.4-8.2) gm/dl Albumin (3.4-5.0) gm/dl Globulin (2.5-4.0) gm/dl Albumin/Globulin Ratio (0.9-2) Stl C. diff Tox B Gene Pending 06/12/21 06/12/21 06/12/21 Range/Units 07:29 05:52 05:52 WBC (4.8-10.8) K/uL RBC (4.7-6.1) M/uL Hgb (14.0-18.0) g/dL Hct (42-52) % MCV (80-100) fL MCH (25-34) pg MCHC (32-36) g/dL RDW Std Deviation (36.4-46.3) fL RDW Coeff of Vel (11.5-14.5) % Plt Count (130-400) K/uL MPV (7.4-10.4) fL Immature Gran % (Auto) % Neut % (Auto) % Lymph % (Auto) % Power % (Auto) % Eos % (Auto) % Baso % (Auto) % Neut # (Auto) (1.4-6.5) K/uL Lymph # (Auto) (1.2-3.4) K/uL Power # (Auto) (0.11-0.59) K/uL Eos # (Auto) (0-0.5) K/uL Baso # (Auto) (0-0.2) K/uL Immature Gran # (Auto) (0.00-0.02) K/uL PT 11.8 (9.0-12.0) Seconds INR 1.2 H (0.9-1.1) APTT 36.1 H (21.0-31.0) Seconds PTT Ratio 1.4 Sodium 134 L (136-145) mmol/L Potassium 3.6 (3.5-5.1) mmol/L Chloride 107 (98-107) mmol/L Carbon Dioxide 21 (21-32) mmol/L Anion Gap 6.0 (3-11) BUN 17 (7-18) mg/dl Creatinine 0.76 (0.6-1.4) mg/dl Est Cr Clr Drug Dosing 99.3 ml/min Est GFR ( Amer) 107.9 ml/min Est GFR (Non-Af Amer) 93.1 ml/min BUN/Creatinine Ratio 22.5 H (10-20) Glucose 139 H (70-99) mg/dl POC Glucose 146 H (70-99) mg/dl Calcium 7.7 L (8.5-10.1) mg/dl Magnesium 1.8 (1.8-2.4) mg/dl Total Bilirubin 1.3 H (0.2-1) mg/dl AST 97 H (15-37) U/L ALT 109 H (12-78) U/L Alkaline Phosphatase 418 H (45-117) U/L Total Protein 5.3 L (6.4-8.2) gm/dl Albumin 1.8 L (3.4-5.0) gm/dl Globulin 3.5 (2.5-4.0) gm/dl Albumin/Globulin Ratio 0.5 L (0.9-2) Stl C. diff Tox B Gene 06/12/21 06/11/21 Range/Units 05:52 20:40 WBC 14.58 H (4.8-10.8) K/uL RBC 3.01 L (4.7-6.1) M/uL Hgb 8.9 L (14.0-18.0) g/dL Hct 26.2 L (42-52) % MCV 87.0 (80-100) fL MCH 29.6 (25-34) pg MCHC 34.0 (32-36) g/dL RDW Std Deviation 45.2 (36.4-46.3) fL RDW Coeff of Vel 14.1 (11.5-14.5) % Plt Count 342 (130-400) K/uL MPV 8.7 (7.4-10.4) fL Immature Gran % (Auto) 0.2 % Neut % (Auto) 87.5 % Lymph % (Auto) 5.1 % Power % (Auto) 6.7 % Eos % (Auto) 0.3 % Baso % (Auto) 0.2 % Neut # (Auto) 12.74 H (1.4-6.5) K/uL Lymph # (Auto) 0.75 L (1.2-3.4) K/uL Power # (Auto) 0.98 H (0.11-0.59) K/uL Eos # (Auto) 0.05 (0-0.5) K/uL Baso # (Auto) 0.03 (0-0.2) K/uL Immature Gran # (Auto) 0.03 H (0.00-0.02) K/uL PT (9.0-12.0) Seconds INR (0.9-1.1) APTT (21.0-31.0) Seconds PTT Ratio Sodium (136-145) mmol/L Potassium (3.5-5.1) mmol/L Chloride (98-107) mmol/L Carbon Dioxide (21-32) mmol/L Anion Gap (3-11) BUN (7-18) mg/dl Creatinine (0.6-1.4) mg/dl Est Cr Clr Drug Dosing ml/min Est GFR ( Amer) ml/min Est GFR (Non-Af Amer) ml/min BUN/Creatinine Ratio (10-20) Glucose (70-99) mg/dl POC Glucose 176 H (70-99) mg/dl Calcium (8.5-10.1) mg/dl Magnesium (1.8-2.4) mg/dl Total Bilirubin (0.2-1) mg/dl AST (15-37) U/L ALT (12-78) U/L Alkaline Phosphatase (45-117) U/L Total Protein (6.4-8.2) gm/dl Albumin (3.4-5.0) gm/dl Globulin (2.5-4.0) gm/dl Albumin/Globulin Ratio (0.9-2) Stl C. diff Tox B Gene PG Care Time/CCT Total # of Minutes Spent Total Time Spent with Patient: Total time spent is greater than 50% in coordination of care (as documented) at patient's floor/unit and/or counseling patient: Coding Level of Care Code 10275 Subseq Hosp Care Lvl 3 Diagnoses Dry gangrene I96 Fever R50.9 PAD (peripheral artery disease) I73.9 Ischemic ulcer of toe of left foot L97.529 Fall W19.XXXA GI bleed K92.2 GI bleed type/associated pathology: unspecified gastrointestinal hemorrhage type Symptomatic anemia D64.9 History of CVA with residual deficit I69.30 Internal carotid artery stent present Z95.828 Elevated troponin I level R77.8 CAD (coronary artery disease), [place] coronary artery I25.10 Stented coronary artery Z95.5 Diabetes mellitus E13.69 Diabetes mellitus complication status: with other specified complication Diabetes mellitus senior living insulin use: unspecified senior living insulin use status Diabetes mellitus type: other specified (including RODRI) Hyperlipidemia LDL goal <70 E78.5 Ischemic cardiomyopathy I25.5 Elevated transaminase level R74.01 Diarrhea R19.7 Urinary retention R33.9 Anemia D64.9 Paroxysmal atrial fibrillation I48.0 DVT prophylaxis Z29.9 (1) Diabetes mellitus Diabetes mellitus complication status: with other specified complication Diabetes mellitus senior living insulin use: unspecified senior living insulin use status Diabetes mellitus type: other specified (including RODRI) Qualified Code(s): E13.69 - Other specified diabetes mellitus with other specified complication (2) GI bleed GI bleed type/associated pathology: unspecified gastrointestinal hemorrhage type Qualified Code(s): K92.2 - Gastrointestinal hemorrhage, unspecified
--- NOTE | 2021-06-12 17:42 | Electrocardiogram Report ---
Test Reason : Blood Pressure : / mmHG Vent. Rate : 118 BPM Atrial Rate : 125 BPM P-R Int : 000 ms QRS Dur : 126 ms QT Int : 348 ms P-R-T Axes : 000 -41 038 degrees QTc Int : 487 ms Atrial fibrillation Left axis deviation Non-specific intra-ventricular conduction block Abnormal ECG When compared with ECG of 11-JUN-2021 04:59, Atrial fibrillation has replaced sinus Vent. rate has increased BY 39 BPM Confirmed by Sharif Ontiveros ([id number]) on 06/12/2021 5:42:42 PM Referred By: REFERRED SELF Confirmed By:Franco Ontiveros
[2021-06-12] MEDS: ATORVASTATIN 40 MG TAB PO SCH (21:38)
[2021-06-12] MEDS: TAMSULOSIN HCL 0.4 MG CAP PO SCH (21:38)
[2021-06-12] MEDS ORDERED: GADOBUTROL 65ML VIAL IV ONE (22:36)
[2021-06-13] MEDS: MoRPHine SULFATE 2 MG/ML CARP IV PRN (01:05)
[2021-06-13] MEDS: PIPERACILLIN/TAZOBACTAM 3.375 GM in DEXTROSE 5% 100 ML IV SCH ×2 (01:55→08:40)
--- NOTE | 2021-06-13 07:20 | Orthopedic Consultation ---
Date of Consultation June 12, 2021 Assessment & Plan (1) Gangrene of left foot: Gangrenous left great toe Vascular consult as noted. Duplex and CTA reviewed. I have discussed the case with Dr. English. An MRI was ordered. Await results of the MRI. Discussed with the patient and his friend that he would likely need a great toe amputation along with possibility of irrigation and debridement of any abscess that might be possibly further up the forefoot. He seems to understand. His friend who is with him is his advocate at this time and appears to understand the consequences. Blood cultures have been remaining negative. Cultures of the foot are showing MRSA. Patient currently on Zosyn and vancomycin. Patient is currently on Plavix and aspirin which will need to be discontinued prior to surgery if possible. Plan to review MRI results and plan for surgical intervention in the near future. History of Present Illness Reason for Consultation: Gangrene left great toe Attending Physician: Jessenia Albarado MD History of Present Illness Patient is a 70-year-old white male that we have been asked to see for gangrene of his left great toe. Patient was admitted several days ago. Patient has a significant history of diabetes mellitus type 2, CAD with stent placement, peripheral vascular disease, mitral regurgitation, history of CVA in January 2021, NSTEMI, carotid stenosis, hyperlipidemia. Patient was having ever-increasing pain in his left foot with ambulation and also in his left great toe. There is some discrepancy of when the patient started to notice the toe was beginning to become gangrene however the patient states that it was over a few previous days before his admission. He was brought into the emergency room secondary to fatigue and confusion. He was admitted for rule out GI bleed as well as gangrene his left great toe. Currently the patient has a friend visiting him who who does help a little bit with his past history. Currently the patient is awake and alert. He does complain of some mild pain in the left great toe and foot. He states that he was having difficulty ambulating because of the pain and noticed that it was increasing. He feels that the toe was beginning to have discoloration several days prior to coming in. Allergies Allergy/AdvReac Type Severity Reaction Status Date / Time No Known Allergies Allergy Unverified 06/09/21 13:36 Home Medications Medication Instructions Recorded Confirmed Type aspirin [Aspir-81] 81 mg PO QAM 06/09/21 06/09/21 History atorvastatin [Lipitor] 80 mg PO HS 06/09/21 06/09/21 History clopidogrel [Plavix] 75 mg PO QAM 06/09/21 06/09/21 History folic acid-B ooor-Y-csvzo-zinc 1 tab PO QAM 06/09/21 06/09/21 History lisinopril [Zestril] 20 mg PO QAM 06/09/21 06/09/21 History metformin 1,000 mg PO BIDM 06/09/21 06/09/21 History metoprolol succinate [Toprol XL] 100 mg PO BIDM 06/09/21 06/09/21 History Patient History Medical History CAD (coronary artery disease), [place] coronary artery 02/12/2021: PCI with HERNANDEZ to the distal left main and proximal LAD. Additional distal LAD disease. Large non dominant left circumflex with moderate diffuse disease. Long subtotal occlusion of the distal vessel. Large dominant RCA with focal 70-80% lesion in the mid vessel. Diffuse boql-xw-fzxhwwzf distal disease. 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 He is oriented to person and place. He has somewhat of a flat affect to some extent but does not look in acute distress or in pain at this time. There is a foul odor noted in the room. Upon examination of his left foot, it is currently wrapped in a Chux. Nursing staff was in the process of doing a dressing change. Upon uncovering the foot reveals a black, gangrenous left great toe that goes back to the MP joint. He does have some mild drainage noted and the odor is quite foul. He does have pain on palpation of the great toe. He does have some pain on palpation of the dorsum of the foot. He has some darkened erythema over the dorsum of the foot along with moderate swelling. Continues to have some sensation of the toes but I cannot appreciate dorsalis pedis pulse secondary to swelling. Nursing staff relates he has good dorsalis pedis pulses on Doppler. Left lower extremity above the ankle with appearance of peripheral vascular disease. No erythema on the plantar aspect of the foot at this time. He is able to take his ankle through range of motion without much in the way of discomfort. He is able to move his remaining toes although it causes some discomfort in the left great toe when trying to do so. Results & Data ([facility]) Vital Signs (Past 12 Hours) Vital Signs Temp Pulse Pulse Resp BP Pulse Ox 06/13/21 04:58 71 06/13/21 04:25 37.9 C H 70 18 134/75 99 06/12/21 23:28 36.8 C 86 20 150/83 H 100 06/12/21 19:56 37.1 C 88 20 145/95 H 97 Diagnostic Findings Patient: MELLY HURTADO Date: 06/09/21MR#: [id number]: [address] C4Acct ID:[id number]: Date: [address] [place] [address] Zip: [place], [place] [address]Goa: 70Location: 2ESex: MRoom/Bed: [id number] Phy: Trell Vidal D.O.Diagnosis: ELEVATED TROPONIN, GI BLEEDPri Phy: Rodney Mcfarland MDService Date: 06/11/21Fam Phy:Interpreting Phy: Edilberto Suggs Phy: Cody Piedra M.D. Ordering Phy: Young, Peter W., D.O. cc: ~ CT angio LE LT w inc wo if don HISTORY: 70 years-old Male severe PA, dry gangrene left big toe severe peripheral arterial disease. Patient presents with reported gangrenous ulcer of the left foot COMPARISON: Lower extremity arterial Doppler 06/09/2021 TECHNIQUE: CTA of the left lower extremity was obtained following the intravenous ministration of 118 mL Optiray 320. 3-D coronal and sagittal MIPS were obtained from the axial data set and were submitted for review. All measurements were obtained according to NASCET criteria. FINDINGS: Mild to moderate subcutaneous edema of the lower pretibial tissues. Moderate subcutaneous edema of the dorsal forefoot. Moderate subcutaneous edema and deep tissue air is noted within the forefoot dorsal to the first and second metatarsals extending into the first webspace and great toe. The study is motion degraded. Extensive atherosclerotic plaque. The distal superficial femoral artery and the popliteal artery are patent. Motion degradation limits evaluation of the lower extremity arteries. There is apparent high-grade narrowing of the tibioperoneal trunk. High-grade multifocal stenosis of the anterior, posterior and peroneal arteries with three-vessel flow appearing to extend to level of the ankle. No drainable fluid collection identified. Degenerative changes of the knee and foot. Evaluation for osseous erosions of the forefoot is limited secondary to motion degradation. IMPRESSION: 1. Severe atherosclerotic vascular disease with high-grade stenoses of the tibioperoneal trunk, anterior and posterior tibial and peroneal arteries. 2. Motion degradation limits the exam. 3. Subcutaneous edema of the lower leg, foot and ankle. Subcutaneous emphysema with deep tissue gas of the dorsal forefoot and great toe may be secondary to direct extension from soft tissue ulcer versus necrotizing fasciitis. US arterial duplex LE HISTORY: 70 years-old Male LLE foot ulcer chronic soft tissue wound of the left lower extremity COMPARISON: None TECHNIQUE: Multiple real-time sonographic images of the bilateral lower extremity arterial structures were obtained assessing grayscale appearance, color and spectral flow. Segmental pressures were also obtained. FINDINGS: RIGHT: KEYLA of the right lower extremity measures 1.06. Mild atherosclerosis. Triphasic waveforms above the level of the knee. Biphasic and triphasic waveforms within the calf. Blunted monophasic waveforms with spectral broadening noted within the distal posterior tibial artery with peak systolic velocities measuring up to 14.7. No arterial occlusion identified. Blunted monophasic waveforms are also noted within the distal peroneal artery. LEFT: KEYLA of the left lower extremity measures 0.57. Mild atherosclerosis. Triphasic waveforms above the level of the knee. Mostly biphasic waveforms within the left calf. Elevated peak systolic velocities within the posterior tibial artery measure up to 233 cm/s. Monophasic blunted waveforms in the distal peroneal artery, peak systolic velocities measuring up to 32 cm/s. Monophasic blunted waveforms within the dorsalis pedis artery spectral broadening. Peak systolic velocities measure up to 8.7 cm. No arterial occlusion identified. IMPRESSION: 1. Abnormal left lower extremity KEYLA of 0.57. 2. Atherosclerotic vascular disease with diminished flow within the bilateral lower legs as above. 3. Elevated peak systolic velocities within the left posterior tibial artery compatible with arterial stenosis. 4. No arterial occlusion.
[2021-06-13] MEDS ORDERED: VANCOMYCIN TROUGH ONE (07:30)
[2021-06-13 07:48] LABS: Basophils # (auto) 0.02 K/uL (0-0.2); Basophils % (auto) 0.2 %; Eosinophils # (auto) 0.19 K/uL (0-0.5); Eosinophils % (auto) 1.5 %; Hematocrit (blood only) 27.7 % (42-52); Hemoglobin 9.4 g/dL (14.0-18.0); Immature Granulocytes # (auto) 0.02 K/uL (0.00-0.02); Immature Granulocytes % (auto) 0.2 %; Lymphocytes # (auto) 0.93 K/uL (1.2-3.4); Lymphocytes % (auto) 7.2 %; Mean Corpuscular Hemoglobin 29.7 pg (25-34); Mean Corpuscular Hgb Conc 33.9 g/dL (32-36); Mean Corpuscular Volume 87.4 fL (80-100); Mean Platelet Volume 8.3 fL (7.4-10.4); Monocytes # (auto) 1.07 K/uL (0.11-0.59); Monocytes % (auto) 8.3 %; Neutrophils # (auto) 10.64 K/uL (1.4-6.5); Neutrophils % (auto) 82.6 %; Platelet Count 329 K/uL (130-400); RDW Coefficient of Variation 14.2 % (11.5-14.5); RDW Standard Deviation 45.9 fL (36.4-46.3); Red Blood Count 3.17 M/uL (4.7-6.1); White Blood Count 12.87 K/uL (4.8-10.8)
[2021-06-13] MEDS: INSULIN ASPART 100 UNITS/ML 3 ML PEN SC SCH ×4 (08:04→20:31)
[2021-06-13] MEDS: PANTOprazole 40 MG TAB PO SCH (08:10)
[2021-06-13] MEDS: CLOPIDOGREL BISULFATE 75 MG TAB PO SCH (08:10)
[2021-06-13] MEDS: ASPIRIN 81 MG ECTAB PO SCH (08:10)
[2021-06-13] MEDS: METOPROLOL SUCC 50MG EXT REL TAB PO SCH (08:10)
[2021-06-13 08:21] LABS: Albumin Level 1.8 gm/dl (3.4-5.0); BUN Creatinine Ratio 19.3 (10-20); Bilirubin Direct 0.6 mg/dl (0-0.2); Calcium 7.9 mg/dl (8.5-10.1); Creatinine Clr Calc Pharmacy 119.7 ml/min; Est GFR (African American) 115.8 ml/min; Est GFR (Non-African American) 99.9 ml/min; Magnesium 1.8 mg/dl (1.8-2.4); Potassium 3.6 mmol/L (3.5-5.1)
[2021-06-13 08:39] LABS: Bilirubin,Total 1.5 mg/dl (0.2-1); Ferritin 2185.8 ng/ml (8-388); Phosphorus 2.2 mg/dl (2.5-4.9); Total Protein 5.7 gm/dl (6.4-8.2)
[2021-06-13] MEDS: VANCOMYCIN HCL 1,250 MG in SODIUM CHLORIDE 0.9% 250 ML IV SCH ×2 (08:40→19:27)
[2021-06-13] MEDS ORDERED: POTASSIUM PHOS 3 MMOL/1 ML INFUSION IV STA (08:51)
[2021-06-13] MEDS ORDERED: POTASSIUM PHOSPHATE 15 MMOL in SODIUM CHLORIDE 0.9% 250 ML IV ONE (09:15)
--- NOTE | 2021-06-13 10:53 | Pharmacy Report ---
Pharmacy Abx Dose Short Note - Date of Service June 13, 2021 - Assessment & Plan Assessment * 70 year old M receiving VANCOMYCIN + ZOSYN IV for treatment of L great toe dry gangrene, with leukocytosis, fever, significant tenderness, edema, and erythema spreading up the distal leg. * Day # 4 of antimicrobial therapy * Wound cx growing MRSA (sensitive vancomycin, MIGUEL = 2, as well as dapto, SMX/TMP and TCN); as well as anaerobic GNR * Leukocytosis improving, fever improved as well. * Renal fxn stable Plan Vancomycin * Has been receiving 1250mg IV Q 12 hours * Trough level of 17.1 mcg/mL is therapeutic. Level was drawn at the appropriate time. Last dose appears to have been hung ~ 2 hrs late due to MRI last evening however this has been factored into plan for ongoing dosing. AUC estimate ~458. * Continue dose of 1250 mg IV every 12 hours * Goal trough level for osteo : 15 to 20 mcg/mL; Goal AUC 400-600 * Will recheck trough in 2 days if therapy to continue Zosyn * eCrCl > 20, BMI < 35, continue 3.375gm ext-infusion Q 8 hrs Pharmacy will continue to follow and will adjust dose/frequency as necessary. Thank you.
--- NOTE | 2021-06-13 12:45 | Magnetic Resonance Report ---
MR foot LT wo/w con HISTORY: 70 years-old Male r/o abscess/osteomyelitis, soft tissue wound of the left great toe. [facility] concern for osteomyelitis. COMPARISON: CTA left lower extremity 06/11/2021. TECHNIQUE: Multiplanar and multisequence MRI of the left foot was obtained both with and without the use of 8.5 mL Gadavist. FINDINGS: Deep tissue gas of the forefoot is most pronounced surrounding the distal first toe. Study is motion degraded. Multifocal osteoarthritis, moderate within the first MTP joint. There is a ksggs-lw-viaboxa e joint effusion of the first MTP joint. Marked bone marrow edema involves the first distal phalanx, most pronounced along the mid and distal portions. Osseous erosions involve the first proximal phalan geal head with partial destruction of the first DIP joint. There is subluxation of the DIP joint with the distal phalanx subluxed volarly. There is associated apex dorsal angulation. Moderate associated enhancement of the first proximal phalanx and adjacent soft tissues. No enhanceme nt of the dorsal tissues of the great toe. Mild enhancement of the dorsal musculature of the forefoot suggestive of myositis. Diffuse subcutaneous edema. The imaged flexor and extensor tendons appear in tact. Atrophy of the intrinsic musculature. IMPRESSION: 1. Motion degraded exam. 2. 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 3. Soft tissue necrosis of the dorsal great toe with soft tissue gas suspicious for necrotizing fasci itis. 4. Diffuse cellulitis with forefoot and dorsal midfoot muscular enhancement suggestive of denervation changes versus myositis. 5. Small to moderate first MTP joint joint effusion. 6. No drainable fluid collection. ACT 112: Negative or not required by law. The above report was generated using voice recognition software. It may contain grammatical, syntax o r spelling errors. Dictated: 06/13/2021 9:26 AM Transcribed: 06/13/2021 9:39 AM Aretha [id number] [email or web address] Electronically signed by: Edilberto Foy M.D. 06/13/2021 12:44 PM
--- NOTE | 2021-06-13 12:57 | Hospitalist Progress Note ---
Date of Service June 13, 2021 Assessment & Plan (1) Dry gangrene: left great toe is nearly entirely black, foul odor, with surrounding cellulitis up ankle Wound culture growing MRSA and now anaerobic GNR Continues with leukocytosis, fever, significant tenderness, edema, and erythema spreading up the distal leg toe and top of the foot is tender to touch and hurts to walk Appreciate vascular surgery consultation-he does have flow to the foot despite the severe PAD and they do not recommend vascular surgical intervention at this time, however recommend orthopedic intervention -Consult orthopedic surgery-ordered MRI and awaiting surgical eval-likely needs debridement vs amputation MRI with OM of great toe with suspected dorsal nec fasciitis, surrounding cellulitis -Continue vancomycin cover for MRSA but given persistent fevers and worsening---> dc Zosyn and start Cefepime and add Clindamycin for antitoxin effect as well as for anaerobic coverage -Follow blood cultures-no growth to date -Follow CBC, CMP (2) Fever: As above, secondary to left foot infection if spikes again tonight, repeat blood cultures (3) PAD (peripheral artery disease): severe stenosis of tibioperoneal trunk severe anterior, posterior tibial artery stenosis severe peroneal artery stenosis Does have flow likely collaterals to the left foot consult vascular surgery appreciated as above-no intervention at this time (4) Ischemic ulcer of toe of left foot: as above arterial doppler with left KEYLA of 0.57 suggesting severe disease plan for CT angiogram left leg - severe disease seen as noted above Continue dual antiplatelet therapy, statin (5) Fall: fell outside his home, his knees gave out, did not have strength to get up alone no syncope, he was conscious and remembers everything hold on PT/OT as don't want him putting weight on left foot for time being -Likely secondary to generalized weakness from infection (6) GI bleed: initially suspected, but Hb of 17 in the spring could have been false or hemoconcentration Hemoglobin upon admission 11.0, then 11.4, then 10.2, 9.4 and stable BUN not going up, only 17, does not suggest upper GI bleed Heme positive stools in the ED but he has NOT had any melena and reported no bleeding Have since resumed aspirin and Plavix due to severe PAD and dry gangrene Continue Protonix 40 mg PO daily (7) Symptomatic anemia: Hb of 11 should not have caused a fall, he had weakness in knees did not have syncope Hemoglobin 9.4 today as above Also with Hemoccult stool positive as above follow CBC (8) History of CVA with residual deficit: Continue aspirin and Plavix (9) Internal carotid artery stent present: Continue aspirin and Plavix, statin (10) Elevated troponin I level: Elevated troponin I level/CAD/stented coronary artery- no chest pain, myocardial demand ischemia (11) CAD (coronary artery disease), [place] coronary artery: had emergent stent in left main in 01/2021 sent for evaluation for CABG at [facility] they recommended CABG but the patient was very nervous, scared due to open heart procedure he has not followed up further, not interested in getting CABG thus medical management will be best we can do Continue aspirin, Plavix, statin, metoprolol (12) Stented coronary artery: See above (13) Diabetes mellitus: Hold Metformin while inpatient and receiving IV dye Placed on Accu-Cheks before meals and at bedtime/every 6 hours with NovoLog coverage per scale hemoglobin A1c with much improved control down 7.4 from 11.4 in January monitor for hypoglycemia, no episodes he has lost 40 lbs intentionally by eating well, strict low carb diet (14) Hyperlipidemia LDL goal <70: Continue atorvastatin (15) Ischemic cardiomyopathy: With moderately reduced LV function continue metoprolol at lower dose than home dose Consider adding SURYA or ARB Needs revascularization but is declining to have CABG (16) Elevated transaminase level: Total bilirubin mildly elevated, AST, ALT, and alkaline phosphatase all elevated but slightly improved today from previous Liver ultrasound -shows 2 larger hemangiomas, and mildly thickened gallbladder but it was contracted this patient was not fasting He has no abdominal pain, suspect could be secondary to ongoing infection or side effect of antibiotics Follow LFTs in the morning dc Zosyn and changing to Cefepime-could be 2/2 Zosyn (17) Diarrhea: In the setting of IV antibiotics Check C. difficile-negative -add Florastor (18) Urinary retention: Requiring straight cath x2 on 06/12 Has a history of nocturia prior to admission Added Flomax on 06/12 Place Allen catheter if needs persistent straight catheterization Continue bladder scans every shift and straight cath for PVR>500mL (19) Anemia: As above, hemoglobin 9.4 Follow CBC (20) Paroxysmal atrial fibrillation: had Afib x 4 hours on AM of 06/12 and also on 06/09 Continue to monitor on telemetry He is not a good candidate for anticoagulation at this time given Hemoccult positive stool and declining hemoglobin It was short-lived Added metoprolol back on () DVT prophylaxis: SCDs only given Hemoccult positive stool Disposition -continued stay in PCU Admission and Anticipated Discharge Date Admission Date: June 09, 2021 Subjective Pt reports he's not sure how he's feeling. Still a bit confused at times. Has pain in left leg and foot. Does not recall spiking a fever last night. No other concerns except still having frequent loose stools. Was straight cathed overnight again. Review of Systems Review of Systems: All systems reviewed & are unremarkable except as noted in HPI & below Physical Exam Constitutional: WD/WN, vitals as above Eyes: + anicteric sclerae Neck: trachea midline, no thyromegaly Respiratory: normal respiratory effort, lungs clear to auscultation Cardiovascular: RRR, no murmur, no edema Rate/Rhythm: regular rate and regular rhythm Heart Sounds: + murmur (2/6 to the left sternal border) Extremities: + edema (Left distal leg with 1+ pitting edema) Chest (Breasts): Chest: normal inspection of chest Gastrointestinal (Abdomen): normal bowel sounds, soft, nontender, no hepatosplenomegaly Musculoskeletal: Extremities: no cyanosis and no clubbing Skin: no rashes, warm and dry left foot with black eschar over dorsal great toe and a few small necrotic spots up dorsal 1st MT With surrounding erythema of entire dorsal foot spreading up anterior ankle proximal to previously drawn black line with 2+ edema Neurologic: moves all extremities and awake; no focal motor deficits Psychiatric: Orientation: alert, oriented to person, oriented to place and cooperative Lymphatic: no lymphedema Results & Data Results & Data ([facility]) Vital Signs (Past 12 Hours) Vital Signs Temp Pulse Pulse Pulse Resp BP Pulse Ox 06/13/21 11:10 36.7 C 71 23 132/79 93 06/13/21 08:00 71 06/13/21 07:22 37.3 C 72 16 125/73 98 06/13/21 04:58 71 06/13/21 04:25 37.9 C H 70 18 134/75 99 Laboratory Results 06/13/21 06/13/21 06/13/21 Range/Units 11:09 07:29 07:29 WBC (4.8-10.8) K/uL RBC (4.7-6.1) M/uL Hgb (14.0-18.0) g/dL Hct (42-52) % MCV (80-100) fL MCH (25-34) pg MCHC (32-36) g/dL RDW Std Deviation (36.4-46.3) fL RDW Coeff of Vel (11.5-14.5) % Plt Count (130-400) K/uL MPV (7.4-10.4) fL Immature Gran % (Auto) % Neut % (Auto) % Lymph % (Auto) % [place] % (Auto) % Eos % (Auto) % Baso % (Auto) % Neut # (Auto) (1.4-6.5) K/uL Lymph # (Auto) (1.2-3.4) K/uL [place] # (Auto) (0.11-0.59) K/uL Eos # (Auto) (0-0.5) K/uL Baso # (Auto) (0-0.2) K/uL Immature Gran # (Auto) (0.00-0.02) K/uL Sodium 133 L (136-145) mmol/L Potassium 3.6 (3.5-5.1) mmol/L Chloride 105 (98-107) mmol/L Carbon Dioxide 21 (21-32) mmol/L Anion Gap 7.0 (3-11) BUN 12 (7-18) mg/dl Creatinine 0.64 (0.6-1.4) mg/dl Est Cr Clr Drug Dosing 119.7 ml/min Est GFR ( Amer) 115.8 ml/min Est GFR (Non-Af Amer) 99.9 ml/min BUN/Creatinine Ratio 19.3 (10-20) Glucose 127 H (70-99) mg/dl POC Glucose 204 H (70-99) mg/dl Calcium 7.9 L (8.5-10.1) mg/dl Phosphorus 2.2 L (2.5-4.9) mg/dl Magnesium 1.8 (1.8-2.4) mg/dl Iron 15 L (35-175) mcg/dl TIBC 87 L (250-450) mcg/dl Transferrin 71 L (200-360) mg/dl Transferrin % Sat 15 L (20-50) % Ferritin 2185.8 H (8-388) ng/ml Total Bilirubin 1.5 H (0.2-1) mg/dl Direct Bilirubin 0.6 H (0-0.2) mg/dl AST 83 H (15-37) U/L ALT 111 H (12-78) U/L Alkaline Phosphatase 522 H (45-117) U/L Total Protein 5.7 L (6.4-8.2) gm/dl Albumin 1.8 L (3.4-5.0) gm/dl Vitamin B12 861 (193-986) pg/ml Folate 18.00 (>5.38) ng/ml Stl C. diff Tox B Gene (Neg) Vancomycin Trough (See Comment) mcg/ml 06/13/21 06/13/21 06/13/21 Range/Units 07:29 07:29 07:20 WBC 12.87 H (4.8-10.8) K/uL RBC 3.17 L (4.7-6.1) M/uL Hgb 9.4 L (14.0-18.0) g/dL Hct 27.7 L (42-52) % MCV 87.4 (80-100) fL MCH 29.7 (25-34) pg MCHC 33.9 (32-36) g/dL RDW Std Deviation 45.9 (36.4-46.3) fL RDW Coeff of Vel 14.2 (11.5-14.5) % Plt Count 329 (130-400) K/uL MPV 8.3 (7.4-10.4) fL Immature Gran % (Auto) 0.2 % Neut % (Auto) 82.6 % Lymph % (Auto) 7.2 % [place] % (Auto) 8.3 % Eos % (Auto) 1.5 % Baso % (Auto) 0.2 % Neut # (Auto) 10.64 H (1.4-6.5) K/uL Lymph # (Auto) 0.93 L (1.2-3.4) K/uL [place] # (Auto) 1.07 H (0.11-0.59) K/uL Eos # (Auto) 0.19 (0-0.5) K/uL Baso # (Auto) 0.02 (0-0.2) K/uL Immature Gran # (Auto) 0.02 (0.00-0.02) K/uL Sodium (136-145) mmol/L Potassium (3.5-5.1) mmol/L Chloride (98-107) mmol/L Carbon Dioxide (21-32) mmol/L Anion Gap (3-11) BUN (7-18) mg/dl Creatinine (0.6-1.4) mg/dl Est Cr Clr Drug Dosing ml/min Est GFR ( Amer) ml/min Est GFR (Non-Af Amer) ml/min BUN/Creatinine Ratio (10-20) Glucose (70-99) mg/dl POC Glucose 127 H (70-99) mg/dl Calcium (8.5-10.1) mg/dl Phosphorus (2.5-4.9) mg/dl Magnesium (1.8-2.4) mg/dl Iron (35-175) mcg/dl TIBC (250-450) mcg/dl Transferrin (200-360) mg/dl Transferrin % Sat (20-50) % Ferritin (8-388) ng/ml Total Bilirubin (0.2-1) mg/dl Direct Bilirubin (0-0.2) mg/dl AST (15-37) U/L ALT (12-78) U/L Alkaline Phosphatase (45-117) U/L Total Protein (6.4-8.2) gm/dl Albumin (3.4-5.0) gm/dl Vitamin B12 (193-986) pg/ml Folate (>5.38) ng/ml Stl C. diff Tox B Gene (Neg) Vancomycin Trough 17.1 (See Comment) mcg/ml 06/12/21 06/12/21 06/12/21 Range/Units Unknown 21:41 16:37 WBC (4.8-10.8) K/uL RBC (4.7-6.1) M/uL Hgb (14.0-18.0) g/dL Hct (42-52) % MCV (80-100) fL MCH (25-34) pg MCHC (32-36) g/dL RDW Std Deviation (36.4-46.3) fL RDW Coeff of Vel (11.5-14.5) % Plt Count (130-400) K/uL MPV (7.4-10.4) fL Immature Gran % (Auto) % Neut % (Auto) % Lymph % (Auto) % [place] % (Auto) % Eos % (Auto) % Baso % (Auto) % Neut # (Auto) (1.4-6.5) K/uL Lymph # (Auto) (1.2-3.4) K/uL [place] # (Auto) (0.11-0.59) K/uL Eos # (Auto) (0-0.5) K/uL Baso # (Auto) (0-0.2) K/uL Immature Gran # (Auto) (0.00-0.02) K/uL Sodium (136-145) mmol/L Potassium (3.5-5.1) mmol/L Chloride (98-107) mmol/L Carbon Dioxide (21-32) mmol/L Anion Gap (3-11) BUN (7-18) mg/dl Creatinine (0.6-1.4) mg/dl Est Cr Clr Drug Dosing ml/min Est GFR ( Amer) ml/min Est GFR (Non-Af Amer) ml/min BUN/Creatinine Ratio (10-20) Glucose (70-99) mg/dl POC Glucose 171 H 163 H (70-99) mg/dl Calcium (8.5-10.1) mg/dl Phosphorus (2.5-4.9) mg/dl Magnesium (1.8-2.4) mg/dl Iron (35-175) mcg/dl TIBC (250-450) mcg/dl Transferrin (200-360) mg/dl Transferrin % Sat (20-50) % Ferritin (8-388) ng/ml Total Bilirubin (0.2-1) mg/dl Direct Bilirubin (0-0.2) mg/dl AST (15-37) U/L ALT (12-78) U/L Alkaline Phosphatase (45-117) U/L Total Protein (6.4-8.2) gm/dl Albumin (3.4-5.0) gm/dl Vitamin B12 (193-986) pg/ml Folate (>5.38) ng/ml Stl C. diff Tox B Gene Negative Cdiff Gene (Neg) Vancomycin Trough (See Comment) mcg/ml PG Care Time/CCT Total # of Minutes Spent Total Time Spent with Patient: Total time spent is greater than 50% in coordination of care (as documented) at patient's floor/unit and/or counseling patient: Coding Level of Care Code 59516 Subseq Hosp Care Lvl 3 Diagnoses Dry gangrene I96 Fever R50.9 PAD (peripheral artery disease) I73.9 Ischemic ulcer of toe of left foot L97.529 Fall W19.XXXA GI bleed K92.2 GI bleed type/associated pathology: unspecified gastrointestinal hemorrhage type Symptomatic anemia D64.9 History of CVA with residual deficit I69.30 Internal carotid artery stent present Z95.828 Elevated troponin I level R77.8 CAD (coronary artery disease), [place] coronary artery I25.10 Stented coronary artery Z95.5 Diabetes mellitus E13.69 Diabetes mellitus complication status: with other specified complication Diabetes mellitus 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 insulin use: unspecified 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 insulin use status Diabetes mellitus type: other specified (including RODRI) Hyperlipidemia LDL goal <70 E78.5 Ischemic cardiomyopathy I25.5 Elevated transaminase level R74.01 Diarrhea R19.7 Urinary retention R33.9 Anemia D64.9 Paroxysmal atrial fibrillation I48.0 DVT prophylaxis Z29.9 (1) GI bleed GI bleed type/associated pathology: unspecified gastrointestinal hemorrhage type Qualified Code(s): K92.2 - Gastrointestinal hemorrhage, unspecified (2) Diabetes mellitus Diabetes mellitus complication status: with other specified complication Diabetes mellitus correction insulin use: unspecified correction insulin use status Diabetes mellitus type: other specified (including RODRI) Qualified Code(s): E13.69 - Other specified diabetes mellitus with other specified complication
[2021-06-13] MEDS: SACCHAROMYCES BOULARDII 250 MG CAP PO SCH (14:28)
[2021-06-13] MEDS: CEFEPIME 2,000 MG in SYRINGE 0 ML IV SCH ×2 (14:28→22:20)
[2021-06-13] MEDS: CLINDAMYCIN 600 MG in DEXTROSE 5% 50 ML IV SCH ×2 (14:28→22:20)
--- NOTE | 2021-06-13 14:43 | Orthopedic Progress Note ---
Date of Service June 13, 2021 Assessment & Plan (1) Gangrene of left foot: Case discussed with Dr. English. Planning for amputation of the left great toe along with irrigation debridement of the foot. This will likely occur on afternoon. I have discussed the case with Dr. Albarado. Antibiotics have been rearranged for now. We discussed that if his condition worsens that she will need to contact physician endodontics dentist or the physician who would be operating during the day this week. Patient understands need for amputation and is willing to go ahead with the surgery. Plan for amputation on . Admission and Anticipated Discharge Date Admission Date: June 09, 2021 Subjective Patient sitting up in bed awake and alert. No new complaints. We discussed the future need for surgery after reading through the MRI results. Patient seems to understand that he needs surgery and is willing to go ahead with amputation of the left great toe. Physical Exam Physical Exam: Patient has a little bit more swelling of the dorsum of the foot with some small pustules that are formed at the distal portion of the foot on the dorsum near the toes. Left great toe continues to remain gangrenous and foul-smelling. There does not appear to be an increase in drainage. His erythema is now extended up the lower extremity just above the ankle. Calves are soft and nontender. Sensation has not changed. Patient is able to feel sensation in all of the remaining toes of the left foot. Results & Data ([facility]) Vital Signs (Past 12 Hours) Vital Signs Temp Pulse Pulse Pulse Resp BP Pulse Ox 06/13/21 11:10 36.7 C 71 23 132/79 93 06/13/21 08:00 71 06/13/21 07:22 37.3 C 72 16 125/73 98 06/13/21 04:58 71 06/13/21 04:25 37.9 C H 70 18 134/75 99 Diagnostic Findings MR foot LT wo/w con HISTORY: 70 years-old Male r/o abscess/osteomyelitis, soft tissue wound of the left great toe. Clinical concern for osteomyelitis. COMPARISON: CTA left lower extremity 06/11/2021. TECHNIQUE: Multiplanar and multisequence MRI of the left foot was obtained both with and without the use of 8.5 mL Gadavist. FINDINGS: Deep tissue gas of the forefoot is most pronounced surrounding the distal first toe. Study is motion degraded. Multifocal osteoarthritis, moderate within the first MTP joint. There is a [id number] joint effusion of the first MTP joint. Marked bone marrow edema involves the first distal phalanx, most pronounced along the mid and distal portions. Osseous erosions involve the first proximal phalangeal head with partial destruction of the first DIP joint. There is subluxation of the DIP joint with the distal phalanx subluxed volarly. There is associated apex dorsal angulation. Moderate associated enhancement of the first proximal phalanx and adjacent soft tissues. No enhancement of the dorsal tissues of the great toe. Mild enhancement of the dorsal musculature of the forefoot suggestive of myositis. Diffuse subcutaneous edema. The imaged flexor and extensor tendons appear intact. Atrophy of the intrinsic musculature. IMPRESSION: 1. Motion degraded exam. 2. 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 3. Soft tissue necrosis of the dorsal great toe with soft tissue gas suspicious for necrotizing fasciitis. 4. Diffuse cellulitis with forefoot and dorsal midfoot muscular enhancement suggestive of denervation changes versus myositis. 5. Small to moderate first MTP joint joint effusion. 6. No drainable fluid collection. 06/13/21 06/13/21 06/13/21 Range/Units 11:09 07:29 07:29 WBC (4.8-10.8) K/uL RBC (4.7-6.1) M/uL Hgb (14.0-18.0) g/dL Hct (42-52) % MCV (80-100) fL MCH (25-34) pg MCHC (32-36) g/dL RDW Std Deviation (36.4-46.3) fL RDW Coeff of Vel (11.5-14.5) % Plt Count (130-400) K/uL MPV (7.4-10.4) fL Immature Gran % (Auto) % Neut % (Auto) % Lymph % (Auto) % [place] % (Auto) % Eos % (Auto) % Baso % (Auto) % Neut # (Auto) (1.4-6.5) K/uL Lymph # (Auto) (1.2-3.4) K/uL [place] # (Auto) (0.11-0.59) K/uL Eos # (Auto) (0-0.5) K/uL Baso # (Auto) (0-0.2) K/uL Immature Gran # (Auto) (0.00-0.02) K/uL Sodium 133 L (136-145) mmol/L Potassium 3.6 (3.5-5.1) mmol/L Chloride 105 (98-107) mmol/L Carbon Dioxide 21 (21-32) mmol/L Anion Gap 7.0 (3-11) BUN 12 (7-18) mg/dl Creatinine 0.64 (0.6-1.4) mg/dl Est Cr Clr Drug Dosing 119.7 ml/min Est GFR ( Amer) 115.8 ml/min Est GFR (Non-Af Amer) 99.9 ml/min BUN/Creatinine Ratio 19.3 (10-20) Glucose 127 H (70-99) mg/dl POC Glucose 204 H (70-99) mg/dl Calcium 7.9 L (8.5-10.1) mg/dl Phosphorus 2.2 L (2.5-4.9) mg/dl Magnesium 1.8 (1.8-2.4) mg/dl Iron 15 L (35-175) mcg/dl TIBC 87 L (250-450) mcg/dl Transferrin 71 L (200-360) mg/dl Transferrin % Sat 15 L (20-50) % Ferritin 2185.8 H (8-388) ng/ml Total Bilirubin 1.5 H (0.2-1) mg/dl Direct Bilirubin 0.6 H (0-0.2) mg/dl AST 83 H (15-37) U/L ALT 111 H (12-78) U/L Alkaline Phosphatase 522 H (45-117) U/L Total Protein 5.7 L (6.4-8.2) gm/dl Albumin 1.8 L (3.4-5.0) gm/dl Vitamin B12 861 (193-986) pg/ml Folate 18.00 (>5.38) ng/ml Stl C. diff Tox B Gene (Neg) Vancomycin Trough (See Comment) mcg/ml 06/13/21 06/13/21 06/13/21 Range/Units 07:29 07:29 07:20 WBC 12.87 H (4.8-10.8) K/uL RBC 3.17 L (4.7-6.1) M/uL Hgb 9.4 L (14.0-18.0) g/dL Hct 27.7 L (42-52) % MCV 87.4 (80-100) fL MCH 29.7 (25-34) pg MCHC 33.9 (32-36) g/dL RDW Std Deviation 45.9 (36.4-46.3) fL RDW Coeff of Vel 14.2 (11.5-14.5) % Plt Count 329 (130-400) K/uL MPV 8.3 (7.4-10.4) fL Immature Gran % (Auto) 0.2 % Neut % (Auto) 82.6 % Lymph % (Auto) 7.2 % [place] % (Auto) 8.3 % Eos % (Auto) 1.5 % Baso % (Auto) 0.2 % Neut # (Auto) 10.64 H (1.4-6.5) K/uL Lymph # (Auto) 0.93 L (1.2-3.4) K/uL [place] # (Auto) 1.07 H (0.11-0.59) K/uL Eos # (Auto) 0.19 (0-0.5) K/uL Baso # (Auto) 0.02 (0-0.2) K/uL Immature Gran # (Auto) 0.02 (0.00-0.02) K/uL Sodium (136-145) mmol/L Potassium (3.5-5.1) mmol/L Chloride (98-107) mmol/L Carbon Dioxide (21-32) mmol/L Anion Gap (3-11) BUN (7-18) mg/dl Creatinine (0.6-1.4) mg/dl Est Cr Clr Drug Dosing ml/min Est GFR ( Amer) ml/min Est GFR (Non-Af Amer) ml/min BUN/Creatinine Ratio (10-20) Glucose (70-99) mg/dl POC Glucose 127 H (70-99) mg/dl Calcium (8.5-10.1) mg/dl Phosphorus (2.5-4.9) mg/dl Magnesium (1.8-2.4) mg/dl Iron (35-175) mcg/dl TIBC (250-450) mcg/dl Transferrin (200-360) mg/dl Transferrin % Sat (20-50) % Ferritin (8-388) ng/ml Total Bilirubin (0.2-1) mg/dl Direct Bilirubin (0-0.2) mg/dl AST (15-37) U/L ALT (12-78) U/L Alkaline Phosphatase (45-117) U/L Total Protein (6.4-8.2) gm/dl Albumin (3.4-5.0) gm/dl Vitamin B12 (193-986) pg/ml Folate (>5.38) ng/ml Stl C. diff Tox B Gene (Neg) Vancomycin Trough 17.1 (See Comment) mcg/ml 06/12/21 06/12/21 06/12/21 Range/Units Unknown 21:41 16:37 WBC (4.8-10.8) K/uL RBC (4.7-6.1) M/uL Hgb (14.0-18.0) g/dL Hct (42-52) % MCV (80-100) fL MCH (25-34) pg MCHC (32-36) g/dL RDW Std Deviation (36.4-46.3) fL RDW Coeff of Vel (11.5-14.5) % Plt Count (130-400) K/uL MPV (7.4-10.4) fL Immature Gran % (Auto) % Neut % (Auto) % Lymph % (Auto) % [place] % (Auto) % Eos % (Auto) % Baso % (Auto) % Neut # (Auto) (1.4-6.5) K/uL Lymph # (Auto) (1.2-3.4) K/uL [place] # (Auto) (0.11-0.59) K/uL Eos # (Auto) (0-0.5) K/uL Baso # (Auto) (0-0.2) K/uL Immature Gran # (Auto) (0.00-0.02) K/uL Sodium (136-145) mmol/L Potassium (3.5-5.1) mmol/L Chloride (98-107) mmol/L Carbon Dioxide (21-32) mmol/L Anion Gap (3-11) BUN (7-18) mg/dl Creatinine (0.6-1.4) mg/dl Est Cr Clr Drug Dosing ml/min Est GFR ( Amer) ml/min Est GFR (Non-Af Amer) ml/min BUN/Creatinine Ratio (10-20) Glucose (70-99) mg/dl POC Glucose 171 H 163 H (70-99) mg/dl Calcium (8.5-10.1) mg/dl Phosphorus (2.5-4.9) mg/dl Magnesium (1.8-2.4) mg/dl Iron (35-175) mcg/dl TIBC (250-450) mcg/dl Transferrin (200-360) mg/dl Transferrin % Sat (20-50) % Ferritin (8-388) ng/ml Total Bilirubin (0.2-1) mg/dl Direct Bilirubin (0-0.2) mg/dl AST (15-37) U/L ALT (12-78) U/L Alkaline Phosphatase (45-117) U/L Total Protein (6.4-8.2) gm/dl Albumin (3.4-5.0) gm/dl Vitamin B12 (193-986) pg/ml Folate (>5.38) ng/ml Stl C. diff Tox B Gene Negative Cdiff Gene (Neg) Vancomycin Trough (See Comment) mcg/ml
[2021-06-13] MEDS: ATORVASTATIN 40 MG TAB PO SCH (20:30)
[2021-06-13] MEDS: TAMSULOSIN HCL 0.4 MG CAP PO SCH (20:32)
[2021-06-14] MEDS: CEFEPIME 2,000 MG in SYRINGE 0 ML IV SCH ×3 (05:31→21:28)
[2021-06-14] MEDS: CLINDAMYCIN 600 MG in DEXTROSE 5% 50 ML IV SCH ×3 (05:32→21:28)
[2021-06-14 06:18] LABS: Basophils # (auto) 0.02 K/uL (0-0.2); Basophils % (auto) 0.2 %; Eosinophils # (auto) 0.24 K/uL (0-0.5); Eosinophils % (auto) 2.3 %; Hemoglobin 9.1 g/dL (14.0-18.0); Immature Granulocytes # (auto) 0.03 K/uL (0.00-0.02); Immature Granulocytes % (auto) 0.3 %; Lymphocytes % (auto) 7.5 %; Mean Corpuscular Hemoglobin 29.7 pg (25-34); Mean Platelet Volume 8.3 fL (7.4-10.4); Monocytes # (auto) 0.82 K/uL (0.11-0.59); Monocytes % (auto) 7.7 %; Neutrophils # (auto) 8.73 K/uL (1.4-6.5); Platelet Count 351 K/uL (130-400); RDW Coefficient of Variation 14.2 % (11.5-14.5); RDW Standard Deviation 43.8 fL (36.4-46.3); Red Blood Count 3.06 M/uL (4.7-6.1); White Blood Count 10.64 K/uL (4.8-10.8)
[2021-06-14 06:45] LABS: Albumin Level 1.7 gm/dl (3.4-5.0); BUN Creatinine Ratio 19.6 (10-20); C Reactive Protein 9.26 mg/dl (0-0.29); Creatinine Clr Calc Pharmacy 118.2 ml/min; Est GFR (African American) 114.3 ml/min; Est GFR (Non-African American) 98.6 ml/min; Magnesium 1.7 mg/dl (1.8-2.4); Potassium 3.6 mmol/L (3.5-5.1)
[2021-06-14 06:48] LABS: Bilirubin Direct 0.6 mg/dl (0-0.2); Bilirubin,Total 1.1 mg/dl (0.2-1); Phosphorus 2.3 mg/dl (2.5-4.9); Total Protein 5.3 gm/dl (6.4-8.2)
[2021-06-14] MEDS: INSULIN ASPART 100 UNITS/ML 3 ML PEN SC SCH ×4 (08:34→21:19)
[2021-06-14] MEDS: PANTOprazole 40 MG TAB PO SCH (08:36)
[2021-06-14] MEDS: METOPROLOL SUCC 50MG EXT REL TAB PO SCH (08:37)
[2021-06-14] MEDS: VANCOMYCIN HCL 1,250 MG in SODIUM CHLORIDE 0.9% 250 ML IV SCH ×2 (08:37→20:04)
[2021-06-14] MEDS: SACCHAROMYCES BOULARDII 250 MG CAP PO SCH (08:37)
[2021-06-14] MEDS: ASPIRIN 81 MG ECTAB PO SCH ×2 (08:38→12:45)
[2021-06-14] MEDS: CLOPIDOGREL BISULFATE 75 MG TAB PO SCH ×2 (08:38→12:45)
[2021-06-14] MEDS ORDERED: POTASSIUM PHOS 3 MMOL/1 ML INFUSION IV STA (10:01)
--- NOTE | 2021-06-14 10:01 | Hospitalist Progress Note ---
Date of Service June 14, 2021 Assessment & Plan (1) Dry gangrene: Plan: left great toe is nearly entirely black, foul odor, with surrounding cellulitis up ankle Wound culture growing MRSA and now anaerobic GNR Prevotella leukocytosis finally resolved, fever finally resolved after changing abx on 06/13 significant tenderness, edema, and erythema spreading up the distal leg stable today toe and top of the foot is tender to touch and hurts to walk Appreciate vascular surgery consultation-he does have flow to the foot despite the severe PAD and they do not recommend vascular surgical intervention at this time, however recommend orthopedic intervention -Consult orthopedic surgery-ordered MRI and plan for amputation on MRI with OM of great toe with suspected dorsal nec fasciitis, surrounding cellulitis -Continue vancomycin cover for MRSA, changed Zosyn to Cefepime and added Clindamycin for antitoxin effect as well as for anaerobic coverage -Follow blood cultures-no growth to date -Follow CBC, CMP (2) Fever: Plan: As above, secondary to left foot infection, now no fever since 06/13 if spikes again tonight, repeat blood cultures (3) PAD (peripheral artery disease): Plan: severe stenosis of tibioperoneal trunk severe anterior, posterior tibial artery stenosis severe peroneal artery stenosis Does have flow likely collaterals to the left foot consult vascular surgery appreciated as above-no intervention at this time (4) Ischemic ulcer of toe of left foot: Plan: as above arterial doppler with left KEYLA of 0.57 suggesting severe disease plan for CT angiogram left leg - severe disease seen as noted above Continue dual antiplatelet therapy, statin (5) Fall: Plan: fell outside his home, his knees gave out, did not have strength to get up alone no syncope, he was conscious and remembers everything hold on PT/OT as don't want him putting weight on left foot for time being -Likely secondary to generalized weakness from infection (6) GI bleed: Plan: initially suspected, but Hb of 17 in the spring could have been false or hemoconcentration Hemoglobin upon admission 11.0, then 11.4, then 10.2, 9.1 and stable BUN not going up,-does not suggest upper GI bleed Heme positive stools in the ED but he has NOT had any melena and reported no bleeding Have since resumed aspirin and Plavix due to severe PAD and dry gangrene Continue Protonix 40 mg PO daily (7) Symptomatic anemia: Plan: Hb of 11 should not have caused a fall, he had weakness in knees did not have syncope Hemoglobin 9.1 today as above Also with Hemoccult stool positive as above follow CBC (8) History of CVA with residual deficit: Plan: Continue aspirin and Plavix (9) Internal carotid artery stent present: Plan: Continue aspirin and Plavix, statin (10) Elevated troponin I level: Plan: Elevated troponin I level/CAD/stented coronary artery- no chest pain, myocardial demand ischemia (11) CAD (coronary artery disease), [place] coronary artery: Plan: had emergent stent in left main in 01/2021 sent for evaluation for CABG at [facility] they recommended CABG but the patient was very nervous, scared due to open heart procedure he has not followed up further, not interested in getting CABG thus medical management will be best we can do Continue aspirin, Plavix, statin, metoprolol would make him high risk for surgery but needs surgery to prevent overwhelming infection/sepsis, pt accepts high risk (12) Stented coronary artery: Plan: See above (13) Diabetes mellitus: Plan: Hold Metformin while inpatient and receiving IV dye Placed on Accu-Cheks before meals and at bedtime/every 6 hours with NovoLog coverage per scale hemoglobin A1c with much improved control down 7.4 from 11.4 in January monitor for hypoglycemia, no episodes he has lost 40 lbs intentionally by eating well, strict low carb diet (14) Hyperlipidemia LDL goal <70: Plan: Continue atorvastatin (15) Ischemic cardiomyopathy: Plan: With moderately reduced LV function continue metoprolol at lower dose than home dose Consider adding SURYA or ARB Needs revascularization but is declining to have CABG (16) Elevated transaminase level: Plan: Total bilirubin mildly elevated, AST, ALT, and alkaline phosphatase all elevated but stable today from previous. Alk phos up higher from bony involvement of foot with infection Liver ultrasound -shows 2 larger hemangiomas, and mildly thickened gallbladder but it was contracted this patient was not fasting He has no abdominal pain, suspect could be secondary to ongoing infection or side effect of antibiotics Follow LFTs in the morning dc Zosyn and changing to Cefepime-could be 2/2 Zosyn (17) Diarrhea: Plan: In the setting of IV antibiotics Check C. difficile-negative -added Florastor (18) Urinary retention: Plan: Requiring straight cath x2 on 06/12 Has a history of nocturia prior to admission Added Flomax on 06/12 Place Allen catheter if needs persistent straight catheterization Continue bladder scans every shift and straight cath for PVR>500mL (19) Anemia: Plan: As above, hemoglobin 9.1 Follow CBC (20) Paroxysmal atrial fibrillation: Plan: had Afib x 4 hours on AM of 06/12 and also on 06/09 Continue to monitor on telemetry He is not a good candidate for anticoagulation at this time given Hemoccult positive stool and declining hemoglobin It was short-lived continue metoprolol (21) DVT prophylaxis: Plan: SCDs only given Hemoccult positive stool Disposition -continued stay in PCU, NPO after midnight Admission and Anticipated Discharge Date Admission Date: June 09, 2021 Subjective Pt feeling well, remembers my name when I walk in for the first time this week. No fevers overnight. Feels he can lift his foot off the bed a little easier today. No CP or SOB, and loose stools have stopped. Is making urine and has not been straight cathed. Review of Systems Review of Systems: All systems reviewed & are unremarkable except as noted in HPI & below Physical Exam Constitutional: WD/WN, vitals as above Eyes: + anicteric sclerae Neck: trachea midline, no thyromegaly Respiratory: normal respiratory effort, lungs clear to auscultation Cardiovascular: RRR, no murmur, no edema Rate/Rhythm: regular rate and regular rhythm Heart Sounds: + murmur (2/6 to the left sternal border) Extremities: + edema (Left distal leg with 1+ pitting edema) Chest (Breasts): Chest: normal inspection of chest Gastrointestinal (Abdomen): normal bowel sounds, soft, nontender, no hepatosplenomegaly Musculoskeletal: Extremities: no cyanosis and no clubbing Skin: no rashes, warm and dry + erythema (Mild erythema in the distal leg above the dressing over the foot not worse) black eschar over left great toe and dorsal foot, +foul odor, erythema over dorsal foot Neurologic: moves all extremities and awake; no focal motor deficits Psychiatric: A+Ox3, euthymic affect Orientation: alert, oriented to person, oriented to place and cooperative Lymphatic: no lymphedema Results & Data Results & Data ([facility]) Vital Signs (Past 12 Hours) Vital Signs Temp Pulse Pulse Resp BP Pulse Ox 06/14/21 07:10 37.1 C 74 18 132/78 98 06/14/21 04:52 36.5 C 74 18 142/78 H 96 06/14/21 01:50 81 06/13/21 22:40 36.8 C 78 18 139/79 97 Laboratory Results 06/14/21 06/14/21 06/14/21 Range/Units 07:09 06:04 06:04 WBC (4.8-10.8) K/uL RBC (4.7-6.1) M/uL Hgb (14.0-18.0) g/dL Hct (42-52) % MCV (80-100) fL MCH (25-34) pg MCHC (32-36) g/dL RDW Std Deviation (36.4-46.3) fL RDW Coeff of Vel (11.5-14.5) % Plt Count (130-400) K/uL MPV (7.4-10.4) fL Immature Gran % (Auto) % Neut % (Auto) % Lymph % (Auto) % [place] % (Auto) % Eos % (Auto) % Baso % (Auto) % Neut # (Auto) (1.4-6.5) K/uL Lymph # (Auto) (1.2-3.4) K/uL [place] # (Auto) (0.11-0.59) K/uL Eos # (Auto) (0-0.5) K/uL Baso # (Auto) (0-0.2) K/uL Immature Gran # (Auto) (0.00-0.02) K/uL ESR 32 H (0-20) mm/hr Sodium 131 L (136-145) mmol/L Potassium 3.6 (3.5-5.1) mmol/L Chloride 104 (98-107) mmol/L Carbon Dioxide 23 (21-32) mmol/L Anion Gap 4.0 (3-11) BUN 13 (7-18) mg/dl Creatinine 0.66 (0.6-1.4) mg/dl Est Cr Clr Drug Dosing 118.2 ml/min Est GFR ( Amer) 114.3 ml/min Est GFR (Non-Af Amer) 98.6 ml/min BUN/Creatinine Ratio 19.6 (10-20) Glucose 172 H (70-99) mg/dl POC Glucose 163 H (70-99) mg/dl Calcium 8.0 L (8.5-10.1) mg/dl Phosphorus 2.3 L (2.5-4.9) mg/dl Magnesium 1.7 L (1.8-2.4) mg/dl Total Bilirubin 1.1 H (0.2-1) mg/dl Direct Bilirubin 0.6 H (0-0.2) mg/dl AST 91 H (15-37) U/L ALT 124 H (12-78) U/L Alkaline Phosphatase 611 H (45-117) U/L C-Reactive Protein 9.26 H (0-0.29) mg/dl Total Protein 5.3 L (6.4-8.2) gm/dl Albumin 1.7 L (3.4-5.0) gm/dl 06/14/21 06/13/21 06/13/21 Range/Units 06:04 20:25 16:08 WBC 10.64 (4.8-10.8) K/uL RBC 3.06 L (4.7-6.1) M/uL Hgb 9.1 L (14.0-18.0) g/dL Hct 26.0 L (42-52) % MCV 85.0 (80-100) fL MCH 29.7 (25-34) pg MCHC 35.0 (32-36) g/dL RDW Std Deviation 43.8 (36.4-46.3) fL RDW Coeff of Vel 14.2 (11.5-14.5) % Plt Count 351 (130-400) K/uL MPV 8.3 (7.4-10.4) fL Immature Gran % (Auto) 0.3 % Neut % (Auto) 82.0 % Lymph % (Auto) 7.5 % [place] % (Auto) 7.7 % Eos % (Auto) 2.3 % Baso % (Auto) 0.2 % Neut # (Auto) 8.73 H (1.4-6.5) K/uL Lymph # (Auto) 0.80 L (1.2-3.4) K/uL [place] # (Auto) 0.82 H (0.11-0.59) K/uL Eos # (Auto) 0.24 (0-0.5) K/uL Baso # (Auto) 0.02 (0-0.2) K/uL Immature Gran # (Auto) 0.03 H (0.00-0.02) K/uL ESR (0-20) mm/hr Sodium (136-145) mmol/L Potassium (3.5-5.1) mmol/L Chloride (98-107) mmol/L Carbon Dioxide (21-32) mmol/L Anion Gap (3-11) BUN (7-18) mg/dl Creatinine (0.6-1.4) mg/dl Est Cr Clr Drug Dosing ml/min Est GFR ( Amer) ml/min Est GFR (Non-Af Amer) ml/min BUN/Creatinine Ratio (10-20) Glucose (70-99) mg/dl POC Glucose 201 H 216 H (70-99) mg/dl Calcium (8.5-10.1) mg/dl Phosphorus (2.5-4.9) mg/dl Magnesium (1.8-2.4) mg/dl Total Bilirubin (0.2-1) mg/dl Direct Bilirubin (0-0.2) mg/dl AST (15-37) U/L ALT (12-78) U/L Alkaline Phosphatase (45-117) U/L C-Reactive Protein (0-0.29) mg/dl Total Protein (6.4-8.2) gm/dl Albumin (3.4-5.0) gm/dl 06/13/21 Range/Units 11:09 WBC (4.8-10.8) K/uL RBC (4.7-6.1) M/uL Hgb (14.0-18.0) g/dL Hct (42-52) % MCV (80-100) fL MCH (25-34) pg MCHC (32-36) g/dL RDW Std Deviation (36.4-46.3) fL RDW Coeff of Vel (11.5-14.5) % Plt Count (130-400) K/uL MPV (7.4-10.4) fL Immature Gran % (Auto) % Neut % (Auto) % Lymph % (Auto) % [place] % (Auto) % Eos % (Auto) % Baso % (Auto) % Neut # (Auto) (1.4-6.5) K/uL Lymph # (Auto) (1.2-3.4) K/uL [place] # (Auto) (0.11-0.59) K/uL Eos # (Auto) (0-0.5) K/uL Baso # (Auto) (0-0.2) K/uL Immature Gran # (Auto) (0.00-0.02) K/uL ESR (0-20) mm/hr Sodium (136-145) mmol/L Potassium (3.5-5.1) mmol/L Chloride (98-107) mmol/L Carbon Dioxide (21-32) mmol/L Anion Gap (3-11) BUN (7-18) mg/dl Creatinine (0.6-1.4) mg/dl Est Cr Clr Drug Dosing ml/min Est GFR ( Amer) ml/min Est GFR (Non-Af Amer) ml/min BUN/Creatinine Ratio (10-20) Glucose (70-99) mg/dl POC Glucose 204 H (70-99) mg/dl Calcium (8.5-10.1) mg/dl Phosphorus (2.5-4.9) mg/dl Magnesium (1.8-2.4) mg/dl Total Bilirubin (0.2-1) mg/dl Direct Bilirubin (0-0.2) mg/dl AST (15-37) U/L ALT (12-78) U/L Alkaline Phosphatase (45-117) U/L C-Reactive Protein (0-0.29) mg/dl Total Protein (6.4-8.2) gm/dl Albumin (3.4-5.0) gm/dl PG Care Time/CCT Total # of Minutes Spent Total Time Spent with Patient: Total time spent is greater than 50% in coordination of care (as documented) at patient's floor/unit and/or counseling patient: Coding Level of Care Code 44984 Subseq Hosp Care Lvl 3 Diagnoses Dry gangrene I96 Fever R50.9 PAD (peripheral artery disease) I73.9 Ischemic ulcer of toe of left foot L97.529 Fall W19.XXXA GI bleed K92.2 GI bleed type/associated pathology: unspecified gastrointestinal hemorrhage type Symptomatic anemia D64.9 History of CVA with residual deficit I69.30 Internal carotid artery stent present Z95.828 Elevated troponin I level R77.8 CAD (coronary artery disease), [place] coronary artery I25.10 Stented coronary artery Z95.5 Diabetes mellitus E13.69 Diabetes mellitus complication status: with other specified complication Diabetes mellitus mcfp insulin use: unspecified mcfp insulin use status Diabetes mellitus type: other specified (including RODRI) Hyperlipidemia LDL goal <70 E78.5 Ischemic cardiomyopathy I25.5 Elevated transaminase level R74.01 Diarrhea R19.7 Urinary retention R33.9 Anemia D64.9 Paroxysmal atrial fibrillation I48.0 DVT prophylaxis Z29.9 (1) GI bleed GI bleed type/associated pathology: unspecified gastrointestinal hemorrhage type Qualified Code(s): K92.2 - Gastrointestinal hemorrhage, unspecified (2) Diabetes mellitus Diabetes mellitus complication status: with other specified complication Diabetes mellitus long term care social worker insulin use: unspecified long term care social worker insulin use status Diabetes mellitus type: other specified (including RODRI) Qualified Code(s): E13.69 - Other specified diabetes mellitus with other specified complication
[2021-06-14] MEDS ORDERED: POTASSIUM PHOSPHATE 15 MMOL in SODIUM CHLORIDE 0.9% 250 ML IV STA (10:05)
[2021-06-14] MEDS: MAGNESIUM SULFATE / D5W 1 GM/100 ML BAG IV SCH ×2 (11:03→12:51)
[2021-06-14] MEDS: TAMSULOSIN HCL 0.4 MG CAP PO SCH (21:23)
[2021-06-14] MEDS: ATORVASTATIN 40 MG TAB PO SCH (21:23)
--- NOTE | 2021-06-15 00:32 | Anesthesiology Consultation ---
Date of Service June 15, 2021 Assessment & Plan Chart Review Chart Review: Acceptable Risk for Surgery and Patient NOT seen in Pre Admission Testing Consults Requested none Additional Notes Per most recent cardiology note from Dr. Ontiveros " Known severe coronary artery disease with NSTEMI in January of this year. He has been evaluated by the cardiovascular surgeons at [facility] and was advised to undergo bypass surgery based on his residual coronary disease and cardiomyopathy. However, the patient told me that he does not have a current interest in proceeding with surgery." Patient has multiple other significant comorbidities including his ischemic cardiomyopathy. Despite his comorbidities, the patient requires orthopedic intervention on his foot with anesthesia at this time. History Surgery Operation Date: 06/15/21 09:50 Proposed Procedures p Left Great Toe Amputation - Chester Waldrop M.D. s Left Foot Incision and Drainage - Chester Waldrop M.D. Height/Weight Height: 5 ft 9 in Weight: 91.8 kg Allergies Allergy/AdvReac Type Severity Reaction Status Date / Time No Known Allergies Allergy Unverified 06/09/21 13:36 Medications Home Medications Medication Instructions Recorded Confirmed Last Taken aspirin 81 mg tablet,delayed 81 mg PO QAM 06/09/21 06/09/21 06/08/21 release atorvastatin 80 mg tablet (Lipitor) 80 mg PO HS 06/09/21 06/09/21 06/08/21 clopidogrel 75 mg tablet (Plavix) 75 mg PO QAM 06/09/21 06/09/21 06/09/21 folic acid 3 mg-vit B complex with 1 tab PO QAM 06/09/21 06/09/21 06/09/21 C-selenium 70 mcg-zinc 15 mg tablet lisinopril 20 mg tablet (Zestril) 20 mg PO QAM 06/09/21 06/09/21 06/09/21 metformin 500 mg tablet,extended 1,000 mg PO BIDM 06/09/21 06/09/21 06/09/21 release 24 hr metoprolol succinate 100 mg 100 mg PO BIDM 06/09/21 06/09/21 06/09/21 tablet,extended release 24 hr (Toprol XL) Active Medications Generic Name Dose Route Start Last Admin Trade Name Freq PRN Reason Stop Dose Admin Acetaminophen 650 mg 06/10/21 20:48 06/12/21 02:52 Acetaminophen 325 Mg Tab PO 07/10/21 20:47 650 mg Q4H PRN Administration pain or fever Aspirin 81 mg 06/10/21 16:30 06/14/21 12:45 Aspirin 81 Mg Ectab PO 07/10/21 16:29 81 mg QAM REESE Administration Atorvastatin Calcium 80 mg 06/10/21 21:00 06/14/21 21:23 Atorvastatin 40 Mg Tab PO 07/10/21 20:59 80 mg HS REESE Administration Clopidogrel Bisulfate 75 mg 06/10/21 16:30 06/14/21 12:45 Clopidogrel Bisulfate 75 Mg Tab PO 07/10/21 16:29 75 mg QAM REESE Administration Vancomycin HCl 1,250 mg/ 275 mls @ 200 mls/hr 06/11/21 20:00 06/14/21 21:36 Sodium Chloride IV 06/18/21 19:59 Infused Q12H REESE Infusion Protocol Clindamycin Phosphate 600 mg/ 54 mls @ 100 mls/hr 06/13/21 14:00 06/14/21 22:12 Dextrose IV 06/20/21 13:59 Infused Q8H REESE Infusion Cefepime HCl 2,000 mg/ Syringe 20 mls @ 5 mls/min 06/13/21 14:00 06/14/21 21:28 IV 07/25/21 13:59 5 mls/min Q8H REESE Administration Protocol Insulin Aspart 0 units 06/09/21 17:30 06/14/21 21:19 Insulin Aspart 100 Units/Ml 3 Ml Pen SC 07/09/21 17:29 2 units ACHS REESE Administration Metoprolol Succinate 50 mg 06/13/21 09:00 06/14/21 08:37 Metoprolol Succ 50mg Ext Rel Tab PO 07/13/21 08:59 50 mg QAM REESE Administration Morphine Sulfate 2 mg 06/10/21 20:48 06/13/21 01:05 Morphine Sulfate 2 Mg/Ml Carp IV 06/24/21 20:47 2 mg Q6H PRN Administration severe pain Pantoprazole Sodium 40 mg 06/11/21 09:00 06/14/21 08:36 Pantoprazole 40 Mg Tab PO 07/11/21 08:59 40 mg QAM REESE Administration Saccharomyces Boulardii 250 mg 06/13/21 13:00 06/14/21 08:37 Saccharomyces Boulardii 250 Mg Cap PO 07/13/21 12:59 250 mg DAILY REESE Administration Tamsulosin HCl 0.4 mg 06/12/21 21:00 06/14/21 21:23 Tamsulosin Hcl 0.4 Mg Cap PO 07/12/21 20:59 0.4 mg HS REESE Administration Past Medical History Medical History CAD (coronary artery disease), [place] coronary artery 02/12/2021: PCI with HERNANDEZ to the distal left main and proximal LAD. Additional distal LAD disease. Large non dominant left circumflex with moderate diffuse disease. Long subtotal occlusion of the distal vessel. Large dominant RCA with focal 70-80% lesion in the mid vessel. Diffuse [id number] distal disease. Diabetes mellitus Family history non-contributory Gangrene of left foot Hyperlipidemia LDL goal <70 Internal carotid artery stent present Past Family History Family History Other Family history non-contributory Past Surgical History Surgical History No history of previous surgery Stented coronary artery Social History Smoking Status: Former smoker Hx Alcohol Use: No Hx Substance Use: No Physical Exam Vital Signs Last Vital Signs Temp 37.3 C 06/14/21 23:32 Pulse 80 06/14/21 23:32 Resp 12 06/14/21 23:32 BP 154/87 H 06/14/21 23:32 Pulse Ox 97 06/14/21 23:32 Testing Laboratory Results 06/14/21 06:04 06/14/21 06:04 PT 11.8 Seconds (9.0-12.0) 06/12/21 05:52 INR 1.2 (0.9-1.1) H 06/12/21 05:52 APTT 36.1 Seconds (21.0-31.0) H 06/12/21 05:52 Hemoglobin A1c 7.4 % (4.5-5.6) H 06/10/21 09:17 Urine Color Dark Yellow 06/09/21 19:10 Urine Appearance Cloudy (Clear) A 06/09/21 19:10 Urine pH 5.5 (4.5-7.5) 06/09/21 19:10 Ur Specific [place] > 1.045 (1.000-1.030) H 06/09/21 19:10 Urine Protein 2+ (Negative) H 06/09/21 19:10 Urine Glucose (UA) Negative (Negative) 06/09/21 19:10 Urine Ketones 1+ (Negative) H 06/09/21 19:10 Urine Nitrite Negative (Negative) 06/09/21 19:10 Ur Leukocyte Esterase Negative (Negative) 06/09/21 19:10 Urine WBC (Auto) 10-30 /hpf (0-5) H 06/09/21 19:10 Urine RBC (Auto) 0-4 /hpf (0-4) 06/09/21 19:10 U Hyaline Cast (Auto) 1-5 /lpf (0-5) 06/09/21 19:10 U Epithel Cells (Auto) >30 /lpf (0-5) H 06/09/21 19:10 Urine Bacteria (Auto) Negative (Negative) 06/09/21 19:10 Blood Type O Positive 06/09/21 14:18 Antibody Screen NEGATIVE 06/09/21 14:18 06/09/21 Unknown Gram Stain - Final Foot,Left Deep Wound Culture - Final Staph aureus MRSA Prevotella melaninogenica Anaerococcus prevotii 06/09/21 12:45 Aerobic Blood Culture - Final Blood No growth in Aerobic bottle after 5 days. Anaerobic Blood Culture - Final No growth in Anaerobic bottle after 5 days. 06/09/21 12:49 Aerobic Blood Culture - Final Blood No growth in Aerobic bottle after 5 days. Anaerobic Blood Culture - Final No growth in Anaerobic bottle after 5 days. 06/09/21 17:59 Aerobic Blood Culture - Preliminary Blood No growth in Aerobic bottle after 48 hours. Anaerobic Blood Culture - Final 06/09/21 19:10 Urine Culture - Final Urine,Clean Catch Gram positive cocci 06/14/21 06/14/21 21:08 16:17 POC Glucose 251 H 304 H* Electrocardiogram Date: 06/12/21 Findings: + AFIB @ (118) Left axis deviation Non-specific intra-ventricular conduction block Abnormal ECG When compared with ECG of 11-JUN-2021 04:59, Atrial fibrillation has replaced sinus Vent. rate has increased BY 39 BPM Echocardiogram Date: 06/10/21 EF: 30-35% LV Function: dysfunctional RWMA: + hypokinetic (distal anterior, lateral and apical segments) Other Findings: + diastolic dysfunction (grade II) RVSP elevated at 30-40 mmHg Cardiac Catheterization Date: 02/12/21 LMT: distal 95-99% calcified stenosis. LAD: proximal diffuse disease. 80-90% long calcified stenosis. mid-diffuse long eccentric 70-80%. distal early focal 99% calcified disese. S1-ok, [id number] caliber long branching with diffuse moderate disease. Receives significant R-L collaterals. LCx: Large, nondominant. p-ok, then AV groove vessel gives 2 small OMs with high origin. A medium branching OM3 with diffuse mild to moderate disease. AV groove vessel after OM3 with long subtotal occlusion. Terminates in small PLB. Receives R-L collaterals (faint) RCA: large and dominant. p-diffuse mild then focal 70-80% in mid vessel. Distal diffuse mild disease and calcification. PDA and PLB with diffuse mild to moderate disease. PCI: 3 overlapped HERNANDEZ covering dLM, pLAD. (3.0x12 mm, 2.09v00hx, 2.75 x15 mm eliana) no dissection/perforation post PCI
[2021-06-15] MEDS: CEFEPIME 2,000 MG in SYRINGE 0 ML IV SCH ×3 (05:36→20:53)
[2021-06-15] MEDS: CLINDAMYCIN 600 MG in DEXTROSE 5% 50 ML IV SCH ×3 (05:36→22:31)
[2021-06-15 07:02] LABS: Basophils # (auto) 0.02 K/uL (0-0.2); Basophils % (auto) 0.2 %; Eosinophils # (auto) 0.39 K/uL (0-0.5); Eosinophils % (auto) 3.8 %; Hematocrit (blood only) 27.7 % (42-52); Hemoglobin 9.3 g/dL (14.0-18.0); Immature Granulocytes # (auto) 0.05 K/uL (0.00-0.02); Immature Granulocytes % (auto) 0.5 %; Lymphocytes % (auto) 8.7 %; Mean Corpuscular Hemoglobin 29.5 pg (25-34); Mean Corpuscular Hgb Conc 33.6 g/dL (32-36); Mean Corpuscular Volume 87.9 fL (80-100); Mean Platelet Volume 8.7 fL (7.4-10.4); Monocytes # (auto) 0.86 K/uL (0.11-0.59); Monocytes % (auto) 8.3 %; Neutrophils # (auto) 8.15 K/uL (1.4-6.5); Neutrophils % (auto) 78.5 %; Platelet Count 435 K/uL (130-400); RDW Coefficient of Variation 14.2 % (11.5-14.5); RDW Standard Deviation 45.8 fL (36.4-46.3); Red Blood Count 3.15 M/uL (4.7-6.1); White Blood Count 10.37 K/uL (4.8-10.8)
[2021-06-15] MEDS ORDERED: LIDOCAINE 2% LOCAL 50 ML VIAL ONE ×2 (07:23→11:14)
[2021-06-15 07:41] LABS: Albumin Level 1.7 gm/dl (3.4-5.0); BUN Creatinine Ratio 16.8 (10-20); Calcium 7.8 mg/dl (8.5-10.1); Creatinine Clr Calc Pharmacy 107.5 ml/min; Est GFR (African American) 110.3 ml/min; Est GFR (Non-African American) 95.2 ml/min; Magnesium 2.1 mg/dl (1.8-2.4); Potassium 3.6 mmol/L (3.5-5.1)
[2021-06-15 07:43] LABS: Albumin Globulin Ratio 0.4 (0.9-2); Globulin 3.8 gm/dl (2.5-4.0); Phosphorus 2.3 mg/dl (2.5-4.9); Total Protein 5.5 gm/dl (6.4-8.2)
[2021-06-15] MEDS: VANCOMYCIN HCL 1,250 MG in SODIUM CHLORIDE 0.9% 250 ML IV SCH ×2 (08:18→20:53)
[2021-06-15] MEDS: INSULIN ASPART 100 UNITS/ML 3 ML PEN SC SCH ×4 (08:19→20:55)
[2021-06-15] MEDS ORDERED: BUPIVACAINE 0.5 % 5 MG/1 ML PF 10ML VIAL ONE (09:10)
[2021-06-15] MEDS: METOPROLOL SUCC 50MG EXT REL TAB PO SCH (09:35)
[2021-06-15] MEDS: SACCHAROMYCES BOULARDII 250 MG CAP PO SCH (09:35)
[2021-06-15] MEDS: ASPIRIN 81 MG ECTAB PO SCH (09:35)
[2021-06-15] MEDS: PANTOprazole 40 MG TAB PO SCH (09:35)
[2021-06-15] MEDS: CLOPIDOGREL BISULFATE 75 MG TAB PO SCH (09:35)
[2021-06-15] MEDS ORDERED: fentaNYL citrate 100 MCG/2 ML VIAL ONE (10:43)
[2021-06-15] MEDS ORDERED: MIDAZOLAM HCL 1 MG/ML 2ML VIAL ONE (10:43)
[2021-06-15] MEDS ORDERED: LIDOCAINE 2% 2 ML VIAL/AMP(20MG/ML) INFIL ONE (10:46)
[2021-06-15] MEDS ORDERED: PROPOFOL IV EMULSION 10 MG/ML 20 ML VIAL IV ONE (10:46)
[2021-06-15] MEDS ORDERED: fentaNYL citrate 100 MCG/2 ML VIAL IV PRN (10:58)
[2021-06-15] MEDS ORDERED: ePHEDrine sulfate 50 MG/ML AMP IV PRN (10:58)
[2021-06-15] MEDS ORDERED: HYDROmorphone INJ 2 MG/ML SYR/VIAL IV PRN (10:58)
[2021-06-15] MEDS ORDERED: ATROPINE SULFATE 0.1 MG/ML 10ML SYR IV PRN (10:58)
[2021-06-15] MEDS ORDERED: ONDANSETRON INJ 2 MG/ML 2 ML VIAL IV PRN (10:58)
[2021-06-15] MEDS: LACTATED RINGER'S 1,000 ML IV SCH ×2 (10:59→13:43)
--- NOTE | 2021-06-15 11:28 | History & Physical Bridge Note ---
Date of Service June 15, 2021 History & Physical Bridge Note I have examined the patient, reviewed the History & Physical and in the interval since the performance of the History & Physical I have noted the following changes of clinical significance: no changes noted
[2021-06-15] MEDS ORDERED: LIDOCAINE 1% LOCAL 20 ML VIAL ONE (11:30)
[2021-06-15] MEDS ORDERED: BUPIVACAINE 0.5 % 5 MG/1 ML MPF 30ML VIAL ONE (11:30)
--- NOTE | 2021-06-15 11:40 | Orthopedic Progress Note ---
Date of Service June 15, 2021 Assessment & Plan (1) Gangrene of left foot: Plan: He has an extensive infection in his left foot, with obvious chronic necrotic tissue in the left great toe, as well as underlying osteomyelitis in the proximal and distal phalanx of the great toe. He requires urgent and aggressive irrigation and debridement and amputation of his great toe to prevent spreading infection, sepsis, and . I advised him that with the necrotic tissue on the dorsum of the foot extending proximal to the MTP joint, I will certainly have to remove part of the first metatarsal, and this will most certainly cause some level of ambulatory dysfunction. He is an extremely ill individual. He has severe coronary artery disease status post myocardial infarction with reported 99% occlusion of his coronary arteries. A triple bypass surgery was recommended for him, but he has refused. He also had a stroke in January of this year. He has severe peripheral vascular disease. Ankle-brachial index on his left leg was very poor at 0.57. CT angiogram reportedly showed stenosis at his tibioperoneal trunk, but with some reconstitution distally and three-vessel runoff in the foot; vascular surgery has declined any intervention at this point. He is a very poorly controlled diabetic, with hemoglobin A1c earlier this year up at 11.4, although improved recently down to 7.4. He obviously has very poor nutrition, as his albumin is only 1.7. I advised him that all of these issues put him at very high risk for very poor wound healing. I am very worried that he may not be able to heal this surgical wound on his foot, and this may lead to persistent infection and eventually might require additional amputation surgery. He voiced understanding this. He understands the need for proceeding with urgent amputation of his great toe. Risks, benefits, and a lternatives of surgery were explained in detail. The surgical procedure, as well as postoperative recovery and rehabilitation, was also explained in detail. Risks include bleeding; persistent infection; damage to surrounding structures such as nerves, blood vessels, and tendons that run in the area; persistent pain, weakness, or stiffness; ambulatory dysfunction; or need for further surgery. The patient understands all of this and wishes to proceed with surgery. Informed consent was obtained. Admission and Anticipated Discharge Date Admission Date: June 09, 2021 Subjective Patient reports that his left great toe wound has only been present for a week. Physical Exam Physical Exam: Examination of the left great toe and foot reveals an obvious severe chronic infection. He has well demarcated necrotic tissue involving the majority of his great toe and extending back to the first MTP joint. There are 2 additional spots of obvious necrotic skin on the dorsum of the foot along the first ray, proximal to the MTP joint. There is significant surrounding erythema, swelling, and induration of the remainder of the dorsum of the foot. There is a very foul odor. Results & Data ([facility]) Vital Signs (Past 12 Hours) Vital Signs Temp Pulse Pulse Resp BP Pulse Ox 06/15/21 10:47 36.7 C 76 20 147/83 H 100 06/15/21 08:00 72 06/15/21 07:12 36.7 C 77 18 152/84 H 99 06/15/21 03:57 36.9 C 72 16 122/69 98 06/14/21 23:32 37.3 C 80 12 154/87 H 97 Laboratory Results Left KEYLA - 0.57 Hgb/Hct - 9.3/27.7 ESR - 32 CRP - 9.26 HgbA1c - 11.4 (3) --> 7.4 (7) Albumin - 1.7 Diagnostic Findings MRI left foot was reviewed. It shows obvious osteomyelitis involving the proximal and distal phalanx of the left great toe. No obvious osteomyelitis in the metatarsal head. There is extensive soft tissue edema within the remainder of the foot.
--- NOTE | 2021-06-15 12:52 | Post Operative Brief Note ---
Immediate Post Op Note v1 Date of Surgery June 15, 2021 Pre & Post Diagnosis Operation Date: 06/15/21 09:50 Pre-Op Diagnosis: Left foot extensive infection Post-Op Diagnosis: Left foot extensive infection with great toe osteomyelitis, extensive soft tissue necrosis in the great toe with extension across the dorsum of the foot I identified the patient and participated in the time-out.: Yes Procedure Operation Date: 06/15/21 09:50 Actual Procedures Left Great Toe Amputation Left Foot Incision and Drainage Placement of Wound Vac - Chester Waldrop M.D. Surgeon Chester Waldrop Translator/Interpreter Otto Her PA-C Estimated Blood Loss 5 Findings Consistent with Post-Op Diagnosis
--- NOTE | 2021-06-15 13:09 | Operative Report ---
Post Operative Report Pre & Post Diagnosis Operation Date: 06/15/21 09:50 Pre-Op Diagnosis: Left foot extensive infection Post-Op Diagnosis: Left foot extensive infection with great toe osteomyelitis, extensive soft tissue necrosis in the great toe with extension across the dorsum of the foot I identified the patient and participated in the time-out.: Yes Procedure Operation Date: 06/15/21 09:50 Actual Procedures Left great toe amputation through the first metatarsophalangeal joint (32675) Irrigation and debridement of extensive necrosis across the dorsum of the left foot, including skin, subcutaneous tissue, deep fascia, 15 x 9 cm (90920, 01150 x 6) Application of Wound VAC, 15 x 9 cm (90374) - Chester Waldrop M.D. Surgeon Chester Waldrop Stamping Die Maker Otto Her PA-C Estimated Blood Loss 5 Findings See Below Extensive soft tissue necrosis across the entire dorsum of the foot up to the level of his ankle; this will necessitate a below-knee amputation to adequately clear his infection Specimens Left great toe amputation Drains Wound VAC Anesthesia Type MAC Regional Complications none Disposition Disposition: Recovery Room Indications Mr. Coffman is a 70-year old male with numerous severe medical problems including severe untreated coronary artery disease, severe peripheral vascular disease, poorly controlled diabetes, and malnutrition who developed a necrotic wound on his left great toe. It is unclear how long this has been going on; the patient states that it is only been a week, but this clearly has been going on longer than that. He had significant infection in his great toe and foot on clinical exam, and osteomyelitis of the proximal and distal phalanx in the great toe on MRI. Urgent surgical debridement and amputation of the great toe was recommended to control his infection. Preoperatively, I did warn him that I was very concerned about his ability to heal his wound given his numerous medical problems, poor vascularity, poor nutrition, and poorly controlled diabetes, and this may necessitate further amputation. However, he consented only to a great toe amputation today. Description of Procedure Patient was identified in the preoperative holding area. Operative extremity was marked. Severe foul odor of the left foot was noted. Regional blockade was given by the Anesthesia Staff. Patient was then brought back to the operating room, and MAC anesthesia was induced without complication. Tourniquet was placed on the left upper calf. Left lower leg was then prepped and draped in a standard sterile fashion using Betadine prep due to his open wounds. The lower leg proximal to the ankle joint was then exsanguinated with an Esmarch, and the tourniquet was inflated. Wound was inspected. There was black eschar involving the entire dorsal skin of the great toe to the level of the MTP joint. There were 2 separate small areas of black necrotic skin along the first ray just proximal to the MTP joint. The remainder of the skin on the dorsum of the foot appeared quite friable, but was intact without gross necrosis. I therefore planned for a chevron incision up the dorsum of the first ray up to about the midshaft level of the first metatarsal to include the necrotic skin patches of skin on the dorsal foot along the first ray. Distally, the incision was carried circumferentially around the base of the great toe at the level of the MTP joint to include all of the necrotic great toe tissues. Immediately upon incision on the dorsum of the foot, there was a copious amount of purulent fluid expressed from the wound. This clearly involves a very large abscess along the entire dorsum of the foot. All the subcutaneous tissues immediately under the skin incision were noted to be completely black and necrotic. I first aggressively debrided the skin, subcutaneous tissues, deep fascia, and extensor tendon tissue of the first ray and carried this distally and amputated the great toe through the MTP joint. This was passed off for specimen. After the great toe amputation was complete, I then turned my attention to the tissues on the dorsum of the foot. The skin on the entire dorsum of the foot from the ankle all the way out to the MTP joints was extremely thin and friable. Immediately deep to the skin level was a very large abscess cavity. I was surprised however it the amount of necrotic tissue on the dorsum of the foot. All of the visible soft tissues in the entire dorsum of the foot within this abscess cavity appeared black and necrotic. The size of this infected and necrotic wound was about 9 cm in proximaldistal dimension, and 15 cm in mediallateral dimension, involving the entire dorsum of the foot up to the level of the ankle. I very aggressively and sharply debrided as much visible grossly necrotic tissue as possible with knife, scissors, curette, and rongeur. This debridement included the skin, subcutaneous tissue, deep fascia, and tendon tissue. However, it was very clear that to adequately clear the infection and remove all necrotic tissue, he would require a below-knee amputation. Unfortunately, he was not set up for this procedure in the operating room, and was not consented for this procedure preoperatively. I decided at this point to leave the wound open and place a wound VAC and plan for a staged below-knee amputation, likely tomorrow, after discussing with the patient. Wound VAC sponge was then packed into the dorsal foot abscess cavity, again measuring 15 x 9 cm. The wound VAC dressing was sealed and suction applied. Sterile dressings were then applied over the friable dorsal foot skin with Xeroform, sterile gauze, and Gabriel wrap. The drapes were removed, the patient was awakened from anesthesia, and taken to the Post Anesthesia Care Unit in stable condition. There were no immediate complications from the procedure. I was present and scrubbed for the entire procedure. Due to the complex nature of the procedure, the entire surgery was performed with the operational assistance of Otto Her PA-C. The assistant accounting manager, under direct supervision, was involved in the performance of all aspects of the surgical procedure including patient positioning, tissue retraction, hemostasis, wound closure, and dressing application. I attest to the content of the Intraoperative Record and any orders documented therein. Any exceptions are noted below.
--- NOTE | 2021-06-15 13:14 | Anesthesiology Progress Note ---
Date of Service June 15, 2021 Anesthesia Post Procedure Vital Signs Vital Signs: Temp Pulse Pulse Pulse Pulse Resp BP 06/15/21 13:05 70 17 138/79 06/15/21 12:55 69 15 127/76 06/15/21 12:49 36.1 C L 71 8 L 125/77 06/15/21 10:47 36.7 C 76 20 147/83 H 06/15/21 08:00 72 06/15/21 07:12 36.7 C 77 18 152/84 H 06/15/21 03:57 36.9 C 72 16 122/69 06/14/21 23:32 37.3 C 80 12 154/87 H 06/14/21 23:21 80 06/14/21 19:15 36.7 C 85 12 156/96 H 06/14/21 15:31 36.5 C 80 19 129/80 06/14/21 15:30 83 Pulse Ox 06/15/21 13:05 100 06/15/21 12:55 100 06/15/21 12:49 100 06/15/21 10:47 100 06/15/21 08:00 06/15/21 07:12 99 06/15/21 03:57 98 06/14/21 23:32 97 06/14/21 23:21 06/14/21 19:15 99 06/14/21 15:31 100 06/14/21 15:30 Pain Intensity Bilateral Foot: Pain Intensity: 0 Transfer of Care Handoff Completed per policy Notes Mental Status: alert / awake / arousable and participated in evaluation Patient Amnestic to Procedure: Yes Nausea / Vomiting: adequately controlled Pain: adequately controlled Airway Patency, RR, SpO2: stable & adequate BP & HR: stable & adequate Hydration State: stable & adequate Anesthetic Complications: no major complications apparent and Pt Satisfied with anesthetic care
--- NOTE | 2021-06-15 14:25 | Orthopedic Progress Note ---
Date of Service June 15, 2021 Assessment & Plan (1) Gangrene of left foot: Plan: I discussed with him the findings and surgery of extensive necrosis across the entire dorsal soft tissues of the foot. I advised him that the only way to really debride all the necrotic tissue and clear his infection would be with a below-knee amputation. He verbalized understanding, and questions regarding postoperative prosthetic fitting were answered. We have set him up for this for tomorrow with Dr. English. Admission and Anticipated Discharge Date Admission Date: June 09, 2021 Subjective Postop check Patient resting comfortably. Denies any pain, but has not had any pain in that foot anytime recently; presumably has significant diabetic neuropathy. Physical Exam Physical Exam: Left foot dressing/wound VAC clean, dry, intact. Results & Data ([facility]) Vital Signs (Past 12 Hours) Vital Signs Temp Pulse Pulse Pulse Resp BP Pulse Ox 06/15/21 14:10 70 06/15/21 14:00 69 20 144/92 H 100 06/15/21 13:40 36.7 C 69 20 143/85 H 98 06/15/21 13:05 70 17 138/79 100 06/15/21 12:55 69 15 127/76 100 06/15/21 12:49 36.1 C L 71 8 L 125/77 100 06/15/21 10:47 36.7 C 76 20 147/83 H 100 06/15/21 08:00 72 06/15/21 07:12 36.7 C 77 18 152/84 H 99 06/15/21 03:57 36.9 C 72 16 122/69 98
--- NOTE | 2021-06-15 16:25 | Hospitalist Progress Note ---
Date of Service June 15, 2021 Assessment & Plan (1) Dry gangrene: Plan: left great toe is nearly entirely black, foul odor, with surrounding cellulitis up ankle Wound culture growing MRSA and anaerobic GNR Prevotella as well as Anaerococcus prevotii leukocytosis finally resolved, fever finally resolved after changing abx on 06/13 significant tenderness, edema, and erythema spreading up the distal leg with areas of necrosis of the entire great toe as well as dorsal foot Appreciate vascular surgery consultation-he does have flow to the foot despite the severe PAD and they do not recommend vascular surgical intervention at this time, however recommend orthopedic intervention -Consult orthopedic surgery-ordered MRI which showed OM of great toe with suspected dorsal nec fasciitis, surrounding cellulitis now status post left Great toe amputation and extensive debridement of necrotic tissue and drainage of abscess of the entire foot and ankle. Unfortunately, orthopedics does not think he will have good wound healing and best option is a left BKA. Patient is agreeable to BKA. -Continue broad-spectrum coverage with vancomycin cover for MRSA, cefepime and Clindamycin for antitoxin effect as well as for anaerobic coverage -Follow blood cultures-no growth to date -Follow CBC, CMP -N.p.o. after midnight for surgery tomorrow -He is not really having pain and does not need pain medication (2) Fever: Plan: As above, secondary to left foot infection, now no fever since 06/13 if spikes again, repeat blood cultures (3) PAD (peripheral artery disease): Plan: severe stenosis of tibioperoneal trunk severe anterior, posterior tibial artery stenosis severe peroneal artery stenosis Does have flow likely collaterals to the left foot consult vascular surgery appreciated as above-no intervention at this time (4) Ischemic ulcer of toe of left foot: Plan: as above arterial doppler with left KEYLA of 0.57 suggesting severe disease plan for CT angiogram left leg - severe disease seen as noted above Continue dual antiplatelet therapy, statin (5) Fall: Plan: fell outside his home, his knees gave out, did not have strength to get up alone no syncope, he was conscious and remembers everything hold on PT/OT as don't want him putting weight on left foot for time being -Likely secondary to generalized weakness from infection (6) GI bleed: Plan: initially suspected, but Hb of 17 in the spring could have been false or hemoconcentration Hemoglobin upon admission 11.0, then 11.4, then 10.2, 9.1 and stable BUN not going up,-does not suggest upper GI bleed Heme positive stools in the ED but he has NOT had any melena and reported no bleeding Have since resumed aspirin and Plavix due to severe PAD and dry gangrene Continue Protonix 40 mg PO daily (7) Symptomatic anemia: Plan: Hb of 11 should not have caused a fall, he had weakness in knees did not have syncope Hemoglobin 9.1 today as above Also with Hemoccult stool positive as above follow CBC (8) History of CVA with residual deficit: Plan: Continue aspirin and Plavix (9) Internal carotid artery stent present: Plan: Continue aspirin and Plavix, statin (10) Elevated troponin I level: Plan: Elevated troponin I level/CAD/stented coronary artery- no chest pain, myocardial demand ischemia (11) CAD (coronary artery disease), [place] coronary artery: Plan: had emergent stent in left main in 01/2021 sent for evaluation for CABG at [place] [facility] they recommended CABG but the patient was very nervous, scared due to open heart procedure he has not followed up further, not interested in getting CABG thus medical management will be best we can do Continue aspirin, Plavix, statin, metoprolol would make him high risk for surgery but needs surgery to prevent overwhelming infection/sepsis, pt accepts high risk (12) Stented coronary artery: Plan: See above (13) Diabetes mellitus: Plan: Hold Metformin while inpatient and receiving IV dye Placed on Accu-Cheks before meals and at bedtime/every 6 hours with NovoLog co verage per scale hemoglobin A1c with much improved control down 7.4 from 11.4 in January monitor for hypoglycemia, no episodes he has lost 40 lbs intentionally by eating well, strict low carb diet (14) Hyperlipidemia LDL goal <70: Plan: Continue atorvastatin (15) Ischemic cardiomyopathy: Plan: With moderately reduced LV function continue metoprolol at lower dose than home dose Consider adding SURYA or ARB Needs revascularization but is declining to have CABG (16) Elevated transaminase level: Plan: Total bilirubin mildly elevated, AST, ALT, and alkaline phosphatase all elevated but slightly improved from previous. Alk phos up higher from bony involvement of foot with infection Liver ultrasound -shows 2 larger hemangiomas, and mildly thickened gallbladder but it was contracted this patient was not fasting He has no abdominal pain, suspect could be secondary to ongoing infection or side effect of antibiotics Follow LFTs in the morning dcd Zosyn on 06/14 and changed to Cefepime-p.o. pneumonitis could be 2/2 Zosyn (17) Diarrhea: Plan: In the setting of IV antibiotics-ongoing Check C. difficile-negative -added Florastor -Add cholestyramine (18) Urinary retention: Plan: Requiring straight cath x2 on 06/12 and again on 06/15 Has a history of nocturia prior to admission Added Flomax on 06/12 Place Allen catheter on 06/15 as has required persistent straight catheterization (19) Anemia: Plan: As above, hemoglobin 9.3 Follow CBC (20) Paroxysmal atrial fibrillation: Plan: had Afib x 4 hours on AM of 06/12 and also on 06/09 Continue to monitor on telemetry He is not a good candidate for anticoagulation at this time given Hemoccult positive stool and declining hemoglobin It was short-lived continue metoprolol (21) DVT prophylaxis: Plan: SCDs only given Hemoccult positive stool Disposition -continued stay in PCU, NPO after midnight for BKA tomorrow Change CODE STATUS to DNR/DNI, patient filled out advanced directives today which will be placed on the chart Discussed all of his care at length with his brother at the bedside Admission and Anticipated Discharge Date Admission Date: June 09, 2021 Subjective Pt had left great toe amputation and debridement of foot today but was found to have extensive necrosis of foot and ankle and needs BKA. BKA planned now for tomorrow. He denies any chest pain or shortness of breath, no nausea or vomiting. He is anxious about the BKA planned for tomorrow. He filled out advanced directives this evening and then we further discussed CODE STATUS at length for a while with him and his brother. He has decided to change his CODE STATUS to DNR/DNI Tele with NSR, rates 70s Review of Systems 2 Review of Systems: All systems reviewed & are unremarkable except as noted in HPI & below Physical Exam Constitutional: WD/WN, vitals as above Eyes: + anicteric sclerae Neck: trachea midline, no thyromegaly Respiratory: normal respiratory effort, lungs clear to auscultation Cardiovascular: RRR, no murmur, no edema Rate/Rhythm: regular rate and regular rhythm Heart Sounds: + murmur (2/6 to the left sternal border) Extremities: + edema (Left distal leg with 1+ pitting edema) Chest (Breasts): Chest: normal inspection of chest Gastrointestinal (Abdomen): normal bowel sounds, soft, nontender, no hepatosplenomegaly Musculoskeletal: Extremities: + extremities abnormal to inspection (Left foot wound VAC and dressing), no cyanosis and no clubbing Skin: no rashes, warm and dry Neurologic: moves all extremities and awake; no focal motor deficits Psychiatric: Orientation: alert, oriented to person, oriented to place and cooperative Lymphatic: no lymphedema Results & Data Results & Data ([facility]) Vital Signs (Past 12 Hours) Vital Signs Temp Pulse Pulse Pulse Resp BP Pulse Ox 06/15/21 15:38 36.5 C 70 17 144/81 H 99 06/15/21 15:00 36.7 C 69 18 139/80 100 06/15/21 14:10 70 06/15/21 14:00 69 20 144/92 H 100 06/15/21 13:40 36.7 C 69 20 143/85 H 98 06/15/21 13:05 70 17 138/79 100 06/15/21 12:55 69 15 127/76 100 06/15/21 12:49 36.1 C L 71 8 L 125/77 100 06/15/21 10:47 36.7 C 76 20 147/83 H 100 06/15/21 08:00 72 06/15/21 07:12 36.7 C 77 18 152/84 H 99 Laboratory Results 06/15/21 06/15/21 06/15/21 Range/Units 16:06 12:55 07:11 WBC (4.8-10.8) K/uL RBC (4.7-6.1) M/uL Hgb (14.0-18.0) g/dL Hct (42-52) % MCV (80-100) fL MCH (25-34) pg MCHC (32-36) g/dL RDW Std Deviation (36.4-46.3) fL RDW Coeff of Vel (11.5-14.5) % Plt Count (130-400) K/uL MPV (7.4-10.4) fL Immature Gran % (Auto) % Neut % (Auto) % Lymph % (Auto) % [place] % (Auto) % Eos % (Auto) % Baso % (Auto) % Neut # (Auto) (1.4-6.5) K/uL Lymph # (Auto) (1.2-3.4) K/uL [place] # (Auto) (0.11-0.59) K/uL Eos # (Auto) (0-0.5) K/uL Baso # (Auto) (0-0.2) K/uL Immature Gran # (Auto) (0.00-0.02) K/uL Sodium (136-145) mmol/L Potassium (3.5-5.1) mmol/L Chloride (98-107) mmol/L Carbon Dioxide (21-32) mmol/L Anion Gap (3-11) BUN (7-18) mg/dl Creatinine (0.6-1.4) mg/dl Est Cr Clr Drug Dosing ml/min Est GFR ( Amer) ml/min Est GFR (Non-Af Amer) ml/min BUN/Creatinine Ratio (10-20) Glucose (70-99) mg/dl POC Glucose 155 H 175 H 188 H (70-99) mg/dl Calcium (8.5-10.1) mg/dl Phosphorus (2.5-4.9) mg/dl Magnesium (1.8-2.4) mg/dl Total Bilirubin (0.2-1) mg/dl AST (15-37) U/L ALT (12-78) U/L Alkaline Phosphatase (45-117) U/L Total Protein (6.4-8.2) gm/dl Albumin (3.4-5.0) gm/dl Globulin (2.5-4.0) gm/dl Albumin/Globulin Ratio (0.9-2) 06/15/21 06/15/21 06/14/21 Range/Units 06:08 06:08 21:08 WBC 10.37 (4.8-10.8) K/uL RBC 3.15 L (4.7-6.1) M/uL Hgb 9.3 L (14.0-18.0) g/dL Hct 27.7 L (42-52) % MCV 87.9 (80-100) fL MCH 29.5 (25-34) pg MCHC 33.6 (32-36) g/dL RDW Std Deviation 45.8 (36.4-46.3) fL RDW Coeff of Vel 14.2 (11.5-14.5) % Plt Count 435 H (130-400) K/uL MPV 8.7 (7.4-10.4) fL Immature Gran % (Auto) 0.5 % Neut % (Auto) 78.5 % Lymph % (Auto) 8.7 % [place] % (Auto) 8.3 % Eos % (Auto) 3.8 % Baso % (Auto) 0.2 % Neut # (Auto) 8.15 H (1.4-6.5) K/uL Lymph # (Auto) 0.90 L (1.2-3.4) K/uL [place] # (Auto) 0.86 H (0.11-0.59) K/uL Eos # (Auto) 0.39 (0-0.5) K/uL Baso # (Auto) 0.02 (0-0.2) K/uL Immature Gran # (Auto) 0.05 H (0.00-0.02) K/uL Sodium 132 L (136-145) mmol/L Potassium 3.6 (3.5-5.1) mmol/L Chloride 103 (98-107) mmol/L Carbon Dioxide 25 (21-32) mmol/L Anion Gap 4.0 (3-11) BUN 12 (7-18) mg/dl Creatinine 0.72 (0.6-1.4) mg/dl Est Cr Clr Drug Dosing 107.5 ml/min Est GFR ( Amer) 110.3 ml/min Est GFR (Non-Af Amer) 95.2 ml/min BUN/Creatinine Ratio 16.8 (10-20) Glucose 199 H (70-99) mg/dl POC Glucose 251 H (70-99) mg/dl Calcium 7.8 L (8.5-10.1) mg/dl Phosphorus 2.3 L (2.5-4.9) mg/dl Magnesium 2.1 (1.8-2.4) mg/dl Total Bilirubin 1.0 (0.2-1) mg/dl AST 62 H (15-37) U/L ALT 111 H (12-78) U/L Alkaline Phosphatase 601 H (45-117) U/L Total Protein 5.5 L (6.4-8.2) gm/dl Albumin 1.7 L (3.4-5.0) gm/dl Globulin 3.8 (2.5-4.0) gm/dl Albumin/Globulin Ratio 0.4 L (0.9-2) // Range/Units 16:17 WBC (4.8-10.8) K/uL RBC (4.7-6.1) M/uL Hgb (14.0-18.0) g/dL Hct (42-52) % MCV (80-100) fL MCH (25-34) pg MCHC (32-36) g/dL RDW Std Deviation (36.4-46.3) fL RDW Coeff of Vel (11.5-14.5) % Plt Count (130-400) K/uL MPV (7.4-10.4) fL Immature Gran % (Auto) % Neut % (Auto) % Lymph % (Auto) % [place] % (Auto) % Eos % (Auto) % Baso % (Auto) % Neut # (Auto) (1.4-6.5) K/uL Lymph # (Auto) (1.2-3.4) K/uL [place] # (Auto) (0.11-0.59) K/uL Eos # (Auto) (0-0.5) K/uL Baso # (Auto) (0-0.2) K/uL Immature Gran # (Auto) (0.00-0.02) K/uL Sodium (136-145) mmol/L Potassium (3.5-5.1) mmol/L Chloride (98-107) mmol/L Carbon Dioxide (21-32) mmol/L Anion Gap (3-11) BUN (7-18) mg/dl Creatinine (0.6-1.4) mg/dl Est Cr Clr Drug Dosing ml/min Est GFR ( Amer) ml/min Est GFR (Non-Af Amer) ml/min BUN/Creatinine Ratio (10-20) Glucose (70-99) mg/dl POC Glucose 304 H* (70-99) mg/dl Calcium (8.5-10.1) mg/dl Phosphorus (2.5-4.9) mg/dl Magnesium (1.8-2.4) mg/dl Total Bilirubin (0.2-1) mg/dl AST (15-37) U/L ALT (12-78) U/L Alkaline Phosphatase (45-117) U/L Total Protein (6.4-8.2) gm/dl Albumin (3.4-5.0) gm/dl Globulin (2.5-4.0) gm/dl Albumin/Globulin Ratio (0.9-2) PG Care Time/CCT Total # of Minutes Spent Total Time Spent with Patient: Total time spent is greater than 50% in coordination of care (as documented) at patient's floor/unit and/or counseling patient: Coding Level of Care Code 07279 Subseq Hosp Care Lvl 3 Diagnoses Dry gangrene I96 Fever R50.9 PAD (peripheral artery disease) I73.9 Ischemic ulcer of toe of left foot L97.529 Fall W19.XXXA GI bleed K92.2 GI bleed type/associated pathology: unspecified gastrointestinal hemorrhage type Symptomatic anemia D64.9 History of CVA with residual deficit I69.30 Internal carotid artery stent present Z95.828 Elevated troponin I level R77.8 CAD (coronary artery disease), [place] coronary artery I25.10 Stented coronary artery Z95.5 Diabetes mellitus E13.69 Diabetes mellitus complication status: with other specified complication Diabetes mellitus lobsterman insulin use: unspecified lobsterman insulin use status Diabetes mellitus type: other specified (including RODRI) Hyperlipidemia LDL goal <70 E78.5 Ischemic cardiomyopathy I25.5 Elevated transaminase level R74.01 Diarrhea R19.7 Urinary retention R33.9 Anemia D64.9 Paroxysmal atrial fibrillation I48.0 DVT prophylaxis Z29.9 (1) Diabetes mellitus Diabetes mellitus complication status: with other specified complication Diabetes mellitus lobsterman insulin use: unspecified lobsterman insulin use status Diabetes mellitus type: other specified (including RODRI) Qualified Code(s): E13.69 - Other specified diabetes mellitus with other specified complication (2) GI bleed GI bleed type/associated pathology: unspecified gastrointestinal hemorrhage type Qualified Code(s): K92.2 - Gastrointestinal hemorrhage, unspecified
--- NOTE | 2021-06-15 17:19 | Anesthesiology Consultation ---
Date of Service June 15, 2021 Assessment & Plan (1) Encounter for pre-operative examination: Chart Review Chart Review: Acceptable Risk for Surgery and Patient NOT seen in Pre Admission Testing Per most recent cardiology note from Dr. Ontiveros " Known severe coronary artery disease with NSTEMI in January of this year. He has been evaluated by the cardiovascular surgeons at [facility] and was advised to undergo bypass surgery based on his residual coronary disease and cardiomyopathy. However, the patient told me that he does not have a current interest in proceeding with surgery." Patient has multiple other significant comorbidities including his ischemic cardiomyopathy. Despite his comorbidities, the patient requires orthopedic intervention on his foot with anesthesia at this time. Consults Requested none History Surgery Operation Date: 06/15/21 09:50 Proposed Procedures p Left Great Toe Amputation - Chester Waldrop M.D. s Left Foot Incision and Drainage - Chester Waldrop M.D. Operation Date: 06/16/21 07:00 Proposed Procedures p Left Below Knee Amputation - Bright English DO Height/Weight Height: 5 ft 9 in Weight: 90.1 kg Allergies Allergy/AdvReac Type Severity Reaction Status Date / Time No Known Allergies Allergy Unverified 06/09/21 13:36 Medications Home Medications Medication Instructions Recorded Confirmed Last Taken aspirin 81 mg tablet,delayed 81 mg PO QAM 06/09/21 06/09/21 06/08/21 release atorvastatin 80 mg tablet (Lipitor) 80 mg PO HS 06/09/21 06/09/21 06/08/21 clopidogrel 75 mg tablet (Plavix) 75 mg PO QAM 06/09/21 06/09/21 06/09/21 folic acid 3 mg-vit B complex with 1 tab PO QAM 06/09/21 06/09/21 06/09/21 C-selenium 70 mcg-zinc 15 mg tablet lisinopril 20 mg tablet (Zestril) 20 mg PO QAM 06/09/21 06/09/21 06/09/21 metformin 500 mg tablet,extended 1,000 mg PO BIDM 06/09/21 06/09/21 06/09/21 release 24 hr metoprolol succinate 100 mg 100 mg PO BIDM 06/09/21 06/09/21 06/09/21 tablet,extended release 24 hr (Toprol XL) Active Medications Generic Name Dose Route Start Last Admin Trade Name Freq PRN Reason Stop Dose Admin Acetaminophen 650 mg 06/10/21 20:48 06/12/21 02:52 Acetaminophen 325 Mg Tab PO 07/10/21 20:47 650 mg Q4H PRN Administration pain or fever Aspirin 81 mg 06/10/21 16:30 06/15/21 09:35 Aspirin 81 Mg Ectab PO 07/10/21 16:29 Not Given QAM REESE Atorvastatin Calcium 80 mg 06/10/21 21:00 06/14/21 21:23 Atorvastatin 40 Mg Tab PO 07/10/21 20:59 80 mg HS REESE Administration Clopidogrel Bisulfate 75 mg 06/10/21 16:30 06/15/21 09:35 Clopidogrel Bisulfate 75 Mg Tab PO 07/10/21 16:29 Not Given QAM REESE Vancomycin HCl 1,250 mg/ 275 mls @ 200 mls/hr 06/11/21 20:00 06/15/21 10:50 Sodium Chloride IV 06/18/21 19:59 Infused Q12H REESE Infusion Protocol Clindamycin Phosphate 600 mg/ 54 mls @ 100 mls/hr 06/13/21 14:00 06/15/21 14:49 Dextrose IV 06/20/21 13:59 Infused Q8H REESE Infusion Cefepime HCl 2,000 mg/ Syringe 20 mls @ 5 mls/min 06/13/21 14:00 06/15/21 14:15 IV 07/25/21 13:59 5 mls/min Q8H REESE Administration Protocol Lactated Ringer's 1,000 mls @ 15 mls/hr 06/15/21 11:00 06/15/21 13:43 Lr IV 06/15/21 18:15 Not Given .Q24H REESE KVO Metoprolol Succinate 50 mg 06/13/21 09:00 06/15/21 09:35 Metoprolol Succ 50mg Ext Rel Tab PO 07/13/21 08:59 Not Given QAM REESE Morphine Sulfate 2 mg 06/10/21 20:48 06/13/21 01:05 Morphine Sulfate 2 Mg/Ml Carp IV 06/24/21 20:47 2 mg Q6H PRN Administration severe pain Pantoprazole Sodium 40 mg 06/11/21 09:00 06/15/21 09:35 Pantoprazole 40 Mg Tab PO 07/11/21 08:59 Not Given QAM REESE Saccharomyces Boulardii 250 mg 06/13/21 13:00 06/15/21 09:35 Saccharomyces Boulardii 250 Mg Cap PO 07/13/21 12:59 Not Given DAILY REESE Tamsulosin HCl 0.4 mg 06/12/21 21:00 06/14/21 21:23 Tamsulosin Hcl 0.4 Mg Cap PO 07/12/21 20:59 0.4 mg HS REESE Administration Past Medical History Medical History (Updated 06/15/21 @ 17:19 by Robbin Mendoza MD) Anemia CAD (coronary artery disease), [place] coronary artery 02/12/2021: PCI with HERNANDEZ to the distal left main and proximal LAD. Additional distal LAD disease. Large non dominant left circumflex with moderate diffuse disease. Long subtotal occlusion of the distal vessel. Large dominant RCA with focal 70-80% lesion in the mid vessel. Diffuse teiz-yv-tpnzzoji distal disease. Diabetes mellitus Family history non-contributory Gangrene of left foot History of CVA with residual deficit Hyperlipidemia LDL goal <70 Internal carotid artery stent present Ischemic cardiomyopathy LBBB (left bundle branch block) Mitral regurgitation Paroxysmal atrial fibrillation Peripheral vascular disease Past Family History Family History Other Family history non-contributory Past Surgical History Surgical History (Updated 06/15/21 @ 17:17 by Robbin Mendoza MD) Stented coronary artery Patient had Left toe surgery 06/15/21. Please see OR record for details. Social History Smoking Status: Former smoker Hx Alcohol Use: No Hx Substance Use: No Physical Exam Vital Signs Last Vital Signs Temp 36.5 C 06/15/21 15:38 Pulse 70 06/15/21 15:38 Resp 17 06/15/21 15:38 BP 144/81 H 06/15/21 15:38 Pulse Ox 99 06/15/21 15:38 Testing Laboratory Results 06/15/21 06:08 06/15/21 06:08 PT 11.8 Seconds (9.0-12.0) 06/12/21 05:52 INR 1.2 (0.9-1.1) H 06/12/21 05:52 APTT 36.1 Seconds (21.0-31.0) H 06/12/21 05:52 Hemoglobin A1c 7.4 % (4.5-5.6) H 06/10/21 09:17 Urine Color Dark Yellow 06/09/21 19:10 Urine Appearance Cloudy (Clear) A 06/09/21 19:10 Urine pH 5.5 (4.5-7.5) 06/09/21 19:10 Ur Specific [place] > 1.045 (1.000-1.030) H 06/09/21 19:10 Urine Protein 2+ (Negative) H 06/09/21 19:10 Urine Glucose (UA) Negative (Negative) 06/09/21 19:10 Urine Ketones 1+ (Negative) H 06/09/21 19:10 Urine Nitrite Negative (Negative) 06/09/21 19:10 Ur Leukocyte Esterase Negative (Negative) 06/09/21 19:10 Urine WBC (Auto) 10-30 /hpf (0-5) H 06/09/21 19:10 Urine RBC (Auto) 0-4 /hpf (0-4) 06/09/21 19:10 U Hyaline Cast (Auto) 1-5 /lpf (0-5) 06/09/21 19:10 U Epithel Cells (Auto) >30 /lpf (0-5) H 06/09/21 19:10 Urine Bacteria (Auto) Negative (Negative) 06/09/21 19:10 Blood Type O Positive 06/09/21 14:18 Antibody Screen NEGATIVE 06/09/21 14:18 06/09/21 17:59 Aerobic Blood Culture - Final Blood No growth in Aerobic bottle after 5 days. Anaerobic Blood Culture - Final 06/09/21 Unknown Gram Stain - Final Foot,Left Deep Wound Culture - Final Staph aureus MRSA Prevotella melaninogenica Anaerococcus prevotii 06/09/21 12:45 Aerobic Blood Culture - Final Blood No growth in Aerobic bottle after 5 days. Anaerobic Blood Culture - Final No growth in Anaerobic bottle after 5 days. 06/09/21 12:49 Aerobic Blood Culture - Final Blood No growth in Aerobic bottle after 5 days. Anaerobic Blood Culture - Final No growth in Anaerobic bottle after 5 days. 06/09/21 19:10 Urine Culture - Final Urine,Clean Catch Gram positive cocci 06/15/21 06/15/21 06/15/21 16:06 12:55 07:11 POC Glucose 155 H 175 H 188 H Electrocardiogram Date: 06/12/21 Findings: + AFIB @ (118) Left axis deviation Non-specific intra-ventricular conduction block Abnormal ECG When compared with ECG of 11-JUN-2021 04:59, Atrial fibrillation has replaced sinus Vent. rate has increased BY 39 BPM Echocardiogram Date: 06/10/21 EF: 30-35% LV Function: dysfunctional RWMA: + hypokinetic (distal anterior, lateral and apical segments) Other Findings: + diastolic dysfunction (grade II) RVSP elevated at 30-40 mmHg Cardiac Catheterization Date: 02/12/21 LMT: distal 95-99% calcified stenosis. LAD: proximal diffuse disease. 80-90% long calcified stenosis. mid-diffuse long eccentric 70-80%. distal early focal 99% calcified disese. S1-ok, R6-nm-bepmwt caliber long branching with diffuse moderate disease. Receives significant R-L collaterals. LCx: Large, nondominant. p-ok, then AV groove vessel gives 2 small OMs with high origin. A medium branching OM3 with diffuse mild to moderate disease. AV groove vessel after OM3 with long subtotal occlusion. Terminates in small PLB. Receives R-L collaterals (faint) RCA: large and dominant. p-diffuse mild then focal 70-80% in mid vessel. Distal diffuse mild disease and calcification. PDA and PLB with diffuse mild to moderate disease. PCI: 3 overlapped HERNANDEZ covering dLM, pLAD. (3.0x12 mm, [id number], 2.75 x15 mm eliana) no dissection/perforation post PCI
[2021-06-15] MEDS: TAMSULOSIN HCL 0.4 MG CAP PO SCH (21:05)
[2021-06-15] MEDS: ATORVASTATIN 40 MG TAB PO SCH (21:05)
[2021-06-15] MEDS: CHOLESTYRAMINE LIGHT 4 GM PKT PO SCH (22:29)
[2021-06-16] MEDS: CLINDAMYCIN 600 MG in DEXTROSE 5% 50 ML IV SCH ×3 (05:25→19:40)
[2021-06-16] MEDS: CEFEPIME 2,000 MG in SYRINGE 0 ML IV SCH ×3 (05:25→19:40)
[2021-06-16] MEDS ORDERED: VANCOMYCIN TROUGH ONE (07:30)
[2021-06-16 07:58] LABS: Basophils # (auto) 0.03 K/uL (0-0.2); Basophils % (auto) 0.3 %; Eosinophils # (auto) 0.32 K/uL (0-0.5); Eosinophils % (auto) 3.6 %; Hematocrit (blood only) 27.3 % (42-52); Hemoglobin 9.3 g/dL (14.0-18.0); Immature Granulocytes # (auto) 0.05 K/uL (0.00-0.02); Immature Granulocytes % (auto) 0.6 %; Lymphocytes # (auto) 0.71 K/uL (1.2-3.4); Lymphocytes % (auto) 8.1 %; Mean Corpuscular Hemoglobin 29.7 pg (25-34); Mean Corpuscular Hgb Conc 34.1 g/dL (32-36); Mean Corpuscular Volume 87.2 fL (80-100); Mean Platelet Volume 8.4 fL (7.4-10.4); Monocytes % (auto) 11.4 %; Neutrophils # (auto) 6.67 K/uL (1.4-6.5); Platelet Count 439 K/uL (130-400); RDW Coefficient of Variation 14.4 % (11.5-14.5); RDW Standard Deviation 46.1 fL (36.4-46.3); Red Blood Count 3.13 M/uL (4.7-6.1); White Blood Count 8.78 K/uL (4.8-10.8)
[2021-06-16] MEDS: ASPIRIN 81 MG ECTAB PO SCH (08:11)
[2021-06-16] MEDS: CLOPIDOGREL BISULFATE 75 MG TAB PO SCH (08:11)
[2021-06-16] MEDS: SACCHAROMYCES BOULARDII 250 MG CAP PO SCH (08:11)
[2021-06-16] MEDS: PANTOprazole 40 MG TAB PO SCH (08:11)
[2021-06-16] MEDS: METOPROLOL SUCC 50MG EXT REL TAB PO SCH (08:11)
[2021-06-16] MEDS: INSULIN ASPART 100 UNITS/ML 3 ML PEN SC SCH ×4 (08:13→19:37)
[2021-06-16 08:26] LABS: Albumin Level 1.6 gm/dl (3.4-5.0); BUN Creatinine Ratio 16.7 (10-20); Calcium 7.6 mg/dl (8.5-10.1); Creatinine Clr Calc Pharmacy 107.2 ml/min; Est GFR (African American) 109.7 ml/min; Est GFR (Non-African American) 94.6 ml/min; Magnesium 1.8 mg/dl (1.8-2.4); Potassium 3.6 mmol/L (3.5-5.1)
[2021-06-16 08:30] LABS: Albumin Globulin Ratio 0.4 (0.9-2); Bilirubin,Total 0.9 mg/dl (0.2-1); Globulin 3.8 gm/dl (2.5-4.0); Phosphorus 2.1 mg/dl (2.5-4.9); Total Protein 5.4 gm/dl (6.4-8.2)
[2021-06-16] MEDS ORDERED: POTASSIUM PHOS 3 MMOL/1 ML INFUSION IV STA (10:29)
[2021-06-16] MEDS: VANCOMYCIN HCL 1,250 MG in SODIUM CHLORIDE 0.9% 250 ML IV SCH ×2 (10:37→19:38)
[2021-06-16] MEDS ORDERED: POTASSIUM PHOSPHATE 9 MMOL in SODIUM CHLORIDE 0.9% 250 ML IV ONE (10:45)
[2021-06-16] MEDS ORDERED: MAGNESIUM SULFATE / D5W 1 GM/100 ML BAG IV ONE (11:00)
[2021-06-16] MEDS: INSULIN GLARGINE SOLOSTAR 100 UNITS/ML 3 ML PEN SC SCH (12:02)
[2021-06-16] MEDS: CHOLESTYRAMINE LIGHT 4 GM PKT PO SCH ×2 (12:14→19:41)
--- NOTE | 2021-06-16 13:00 | Pharmacy Report ---
Pharmacy Abx Dose Short Note - Date of Service June 16, 2021 - Assessment & Plan * 70 year old M receiving VANCOMYCIN + CEFEPIME + CLINDAMYCIN IV for treatment of L great toe dry gangrene, with leukocytosis, fever, significant tenderness, edema, and erythema spreading up the distal leg. Pharmacy to dose VANCOMYCIN. * Day # 7 of antimicrobial therapy * Wound cx growing MRSA (sensitive vancomycin, MIGUEL = 2, as well as dapto, SMX/TMP and TCN); as well prevotella melaninogenica and anaerococcus prevotii * Surgery consult evaluating patient and below knee amputation may be planned * Leukocytosis improving, fever improved as well. * Renal fxn stable Plan Vancomycin * Has been receiving 1250mg IV Q 12 hours * Trough level of 16.3 mcg/mL is therapeutic. Level was drawn at the appropriate time. Prior doses hung mostly on schedule. This level is reflective of steady-state. AUC estimate ~505. * Continue dose of 1250 mg IV every 12 hours * Goal trough level for osteo : 15 to 20 mcg/mL; Goal AUC 400-600 * Will recheck trough in 2-3 days if therapy to continue Pharmacy will continue to follow and will adjust dose/frequency as necessary. Thank you.
--- NOTE | 2021-06-16 14:36 | History & Physical Bridge Note ---
Date of Service June 16, 2021 History & Physical Bridge Note I have examined the patient, reviewed the History & Physical and in the interval since the performance of the History & Physical I have noted the following changes of clinical significance: Despite left great toe amputation yesterday, patient has clear evidence of necrotizing fasciitis on the dorsum of the left foot extending proximally and has recommendation to undergo left below-knee amputation today.
[2021-06-16] MEDS ORDERED: BUPIVACAINE 0.5 % 5 MG/1 ML MPF 30ML VIAL ONE (15:04)
[2021-06-16] MEDS ORDERED: ROPIVACAINE 0.5% 5 MG/ML 30 ML VIAL ONE (15:08)
[2021-06-16] MEDS ORDERED: MIDAZOLAM HCL 1 MG/ML 2ML VIAL ONE (15:08)
[2021-06-16] MEDS ORDERED: ATROPINE SULFATE 0.1 MG/ML 10ML SYR IV PRN ×2 (15:16→17:40)
[2021-06-16] MEDS ORDERED: ONDANSETRON INJ 2 MG/ML 2 ML VIAL IV PRN ×3 (15:16→19:35)
--- NOTE | 2021-06-16 15:23 | Hospitalist Progress Note ---
Date of Service June 16, 2021 Assessment & Plan (1) Dry gangrene: Plan: left great toe is nearly entirely black, foul odor, with surrounding cellulitis up ankle Wound culture growing MRSA and anaerobic GNR Prevotella as well as Anaerococcus prevotii leukocytosis finally resolved, fever finally resolved after changing abx on 06/13 significant tenderness, edema, and erythema spreading up the distal leg with areas of necrosis of the entire great toe as well as dorsal foot Appreciate vascular surgery consultation-he does have flow to the foot despite the severe PAD and they do not recommend vascular surgical intervention at this time, however recommend orthopedic intervention -Consult orthopedic surgery-ordered MRI which showed OM of great toe with suspected dorsal nec fasciitis, surrounding cellulitis now status post left Great toe amputation and extensive debridement of necrotic tissue and drainage of abscess of the entire foot and ankle. Unfortunately, orthopedics does not think he will have good wound healing and best option is a left BKA. Patient is agreeable to BKA. Now status post left BKA on 06/16 -Postoperative care as per orthopedic surgery -Continue broad-spectrum coverage with vancomycin cover for MRSA, cefepime and Clindamycin for antitoxin effect as well as for anaerobic coverage -Follow blood cultures-no growth to date -Follow CBC, CMP -He is not really having pain and does not need pain medication (2) Sepsis: Plan: Sepsis, POA as above Present on Admission?: Yes (3) Fever: Plan: As above, secondary to left foot infection, now no fever since 06/13 if spikes again, repeat blood cultures (4) PAD (peripheral artery disease): Plan: severe stenosis of tibioperoneal trunk severe anterior, posterior tibial artery stenosis severe peroneal artery stenosis Does have flow likely collaterals to the left foot consult vascular surgery appreciated as above-no intervention at this time (5) Ischemic ulcer of toe of left foot: Plan: arterial doppler with left KEYLA of 0.57 suggesting severe disease plan for CT angiogram left leg - severe disease seen as noted above Continue dual antiplatelet therapy, statin (6) Fall: Plan: fell outside his home, his knees gave out, did not have strength to get up alone no syncope, he was conscious and remembers everything hold on PT/OT as don't want him putting weight on left foot for time being -Likely secondary to generalized weakness from infection (7) GI bleed: Plan: initially suspected, but Hb of 17 in the spring could have been false or hemoconcentration Hemoglobin upon admission 11.0, then 11.4, then 10.2, 9.1 and stable BUN not going up,-does not suggest upper GI bleed Heme positive stools in the ED but he has NOT had any melena and reported no bleeding Have since resumed aspirin and Plavix due to severe PAD and dry gangrene Continue Protonix 40 mg PO daily (8) Symptomatic anemia: Plan: Hb of 11 should not have caused a fall, he had weakness in knees did not have syncope Hemoglobin 9.1 today as above Also with Hemoccult stool positive as above follow CBC (9) History of CVA with residual deficit: Plan: Status post right ICA stent, with multiple bilateral strokes Continue aspirin and Plavix (10) Internal carotid artery stent present: Plan: Continue aspirin and Plavix, statin (11) Elevated troponin I level: Plan: Elevated troponin I level/CAD/stented coronary artery- no chest pain, myocardial demand ischemia has known severe CAD and needs CABG but refuses (12) CAD (coronary artery disease), [place] coronary artery: Plan: had emergent stent in left main in 01/2021 sent for evaluation for CABG at [facility] they recommended CABG but the patient was very nervous, scared due to open heart procedure he has not followed up further, not interested in getting CABG thus medical management will be best we can do Continue aspirin, Plavix, statin, metoprolol would make him high risk for surgery but needs surgery to prevent overwhelming infection/sepsis, pt accepts high risk (13) Stented coronary artery: Plan: See above (14) Diabetes mellitus: Plan: Hold Metformin while inpatient and receiving IV dye Placed on Accu-Cheks before meals and at bedtime/every 6 hours with NovoLog coverage per scale hemoglobin A1c with much improved control down 7.4 from 11.4 in January monitor for hypoglycemia, no episodes he has lost 40 lbs intentionally by eating well, strict low carb diet and started on Metformin after his hospitalization for stroke and [place] in 01/2021 (15) Hyperlipidemia LDL goal <70: Plan: Continue atorvastatin (16) Ischemic cardiomyopathy: Plan: With moderately reduced LV function continue metoprolol at lower dose than home dose and titrate back up as able to Add his GABRIEL inhibitor back on after surgery if blood pressure stable Needs revascularization but is declining to have CABG (17) Elevated transaminase level: Plan: Total bilirubin mildly elevated, AST, ALT, and alkaline phosphatase all elevated but now significantly improved after discontinuing Zosyn May have been secondary to Zosyn Alk phos up higher from bony involvement of foot with infection Liver ultrasound -shows 2 larger hemangiomas, and mildly thickened gallbladder but it was contracted this patient was not fasting He has no abdominal pain, suspect could be secondary to ongoing infection or side effect of antibiotics Follow LFTs in the morning (18) Diarrhea: Plan: In the setting of IV antibiotics-ongoing Check C. difficile-negative -added Florastor -Add cholestyramine (19) Urinary retention: Plan: Requiring straight cath x2 on 06/12 and again on 06/15 Has a history of nocturia prior to admission Added Flomax on 06/12 Place Allen catheter on 06/15 as has required persistent straight catheterization (20) Anemia: Plan: As above, hemoglobin 9.3 Follow CBC (21) Paroxysmal atrial fibrillation: Plan: had Afib x 4 hours on AM of 06/12 and also on 06/09 Continue to monitor on telemetry He is not a good candidate for anticoagulation at this time given Hemoccult positive stool and declining hemoglobin It was short-lived continue metoprolol (22) DVT prophylaxis: Plan: SCDs only given Hemoccult positive stool Disposition -continued stay in PCU Changed CODE STATUS to DNR/DNI, patient filled out advanced directives Admission and Anticipated Discharge Date Admission Date: June 09, 2021 Subjective Patient just returned from the BKA when I saw him. He was a little bit "out of it" but denied pain anywhere. No chest pain or shortness of breath. Telemetry with normal sinus rhythm with rates in 70s to 80s. Review of Systems Review of Systems: All systems reviewed & are unremarkable except as noted in HPI & below Physical Exam Constitutional: WD/WN, vitals as above Eyes: + anicteric sclerae Neck: trachea midline, no thyromegaly Respiratory: normal respiratory effort, lungs clear to auscultation Cardiovascular: Rate/Rhythm: regular rate and regular rhythm Heart Sounds: + murmur (2/6 to the left sternal border) Chest (Breasts): Chest: normal inspection of chest Gastrointestinal (Abdomen): normal bowel sounds, soft, nontender, no hepatosplenomegaly Musculoskeletal: Extremities: + extremities abnormal to inspection (Left lower extremity with large Gabriel wrap and BKA), no cyanosis and no clubbing Skin: no rashes, warm and dry + erythema (Mild erythema in the distal leg above the dressing over the foot not worse) Neurologic: moves all extremities and awake; no focal motor deficits Psychiatric: A+Ox3, euthymic affect Orientation: alert, oriented to person, oriented to place and cooperative Lymphatic: no lymphedema Results & Data Results & Data ([facility]) Vital Signs (Past 12 Hours) Vital Signs Temp Pulse Pulse Resp BP Pulse Ox 06/16/21 14:49 37 C 71 18 149/84 H 100 06/16/21 12:42 37.0 C 89 18 110/74 98 06/16/21 08:30 77 06/16/21 08:00 36.5 C 88 16 109/64 95 06/16/21 04:15 36.8 C 82 19 143/73 H 96 Laboratory Results 06/16/21 06/16/21 06/16/21 Range/Units 17:28 11:22 07:40 WBC (4.8-10.8) K/uL RBC (4.7-6.1) M/uL Hgb (14.0-18.0) g/dL Hct (42-52) % MCV (80-100) fL MCH (25-34) pg MCHC (32-36) g/dL RDW Std Deviation (36.4-46.3) fL RDW Coeff of Vel (11.5-14.5) % Plt Count (130-400) K/uL MPV (7.4-10.4) fL Immature Gran % (Auto) % Neut % (Auto) % Lymph % (Auto) % Mcmullen % (Auto) % Eos % (Auto) % Baso % (Auto) % Neut # (Auto) (1.4-6.5) K/uL Lymph # (Auto) (1.2-3.4) K/uL Mcmullen # (Auto) (0.11-0.59) K/uL Eos # (Auto) (0-0.5) K/uL Baso # (Auto) (0-0.2) K/uL Immature Gran # (Auto) (0.00-0.02) K/uL Sodium (136-145) mmol/L Potassium (3.5-5.1) mmol/L Chloride (98-107) mmol/L Carbon Dioxide (21-32) mmol/L Anion Gap (3-11) BUN (7-18) mg/dl Creatinine (0.6-1.4) mg/dl Est Cr Clr Drug Dosing ml/min Est GFR ( Amer) ml/min Est GFR (Non-Af Amer) ml/min BUN/Creatinine Ratio (10-20) Glucose (70-99) mg/dl POC Glucose 136 H 203 H 267 H (70-99) mg/dl Calcium (8.5-10.1) mg/dl Phosphorus (2.5-4.9) mg/dl Magnesium (1.8-2.4) mg/dl Total Bilirubin (0.2-1) mg/dl AST (15-37) U/L ALT (12-78) U/L Alkaline Phosphatase (45-117) U/L Total Protein (6.4-8.2) gm/dl Albumin (3.4-5.0) gm/dl Globulin (2.5-4.0) gm/dl Albumin/Globulin Ratio (0.9-2) Vancomycin Trough (See Comment) mcg/ml 06/16/21 06/16/21 06/16/21 Range/Units 07:38 07:38 07:38 WBC 8.78 (4.8-10.8) K/uL RBC 3.13 L (4.7-6.1) M/uL Hgb 9.3 L (14.0-18.0) g/dL Hct 27.3 L (42-52) % MCV 87.2 (80-100) fL MCH 29.7 (25-34) pg MCHC 34.1 (32-36) g/dL RDW Std Deviation 46.1 (36.4-46.3) fL RDW Coeff of Vel 14.4 (11.5-14.5) % Plt Count 439 H (130-400) K/uL MPV 8.4 (7.4-10.4) fL Immature Gran % (Auto) 0.6 % Neut % (Auto) 76.0 % Lymph % (Auto) 8.1 % Mcmullen % (Auto) 11.4 % Eos % (Auto) 3.6 % Baso % (Auto) 0.3 % Neut # (Auto) 6.67 H (1.4-6.5) K/uL Lymph # (Auto) 0.71 L (1.2-3.4) K/uL Mcmullen # (Auto) 1.00 H (0.11-0.59) K/uL Eos # (Auto) 0.32 (0-0.5) K/uL Baso # (Auto) 0.03 (0-0.2) K/uL Immature Gran # (Auto) 0.05 H (0.00-0.02) K/uL Sodium 133 L (136-145) mmol/L Potassium 3.6 (3.5-5.1) mmol/L Chloride 104 (98-107) mmol/L Carbon Dioxide 23 (21-32) mmol/L Anion Gap 6.0 (3-11) BUN 12 (7-18) mg/dl Creatinine 0.73 (0.6-1.4) mg/dl Est Cr Clr Drug Dosing 107.2 ml/min Est GFR ( Amer) 109.7 ml/min Est GFR (Non-Af Amer) 94.6 ml/min BUN/Creatinine Ratio 16.7 (10-20) Glucose 220 H (70-99) mg/dl POC Glucose (70-99) mg/dl Calcium 7.6 L (8.5-10.1) mg/dl Phosphorus 2.1 L (2.5-4.9) mg/dl Magnesium 1.8 (1.8-2.4) mg/dl Total Bilirubin 0.9 (0.2-1) mg/dl AST 33 (15-37) U/L ALT 76 (12-78) U/L Alkaline Phosphatase 475 H (45-117) U/L Total Protein 5.4 L (6.4-8.2) gm/dl Albumin 1.6 L (3.4-5.0) gm/dl Globulin 3.8 (2.5-4.0) gm/dl Albumin/Globulin Ratio 0.4 L (0.9-2) Vancomycin Trough 16.3 (See Comment) mcg/ml 06/15/21 Range/Units 20:10 WBC (4.8-10.8) K/uL RBC (4.7-6.1) M/uL Hgb (14.0-18.0) g/dL Hct (42-52) % MCV (80-100) fL MCH (25-34) pg MCHC (32-36) g/dL RDW Std Deviation (36.4-46.3) fL RDW Coeff of Vel (11.5-14.5) % Plt Count (130-400) K/uL MPV (7.4-10.4) fL Immature Gran % (Auto) % Neut % (Auto) % Lymph % (Auto) % Mcmullen % (Auto) % Eos % (Auto) % Baso % (Auto) % Neut # (Auto) (1.4-6.5) K/uL Lymph # (Auto) (1.2-3.4) K/uL Mcmullen # (Auto) (0.11-0.59) K/uL Eos # (Auto) (0-0.5) K/uL Baso # (Auto) (0-0.2) K/uL Immature Gran # (Auto) (0.00-0.02) K/uL Sodium (136-145) mmol/L Potassium (3.5-5.1) mmol/L Chloride (98-107) mmol/L Carbon Dioxide (21-32) mmol/L Anion Gap (3-11) BUN (7-18) mg/dl Creatinine (0.6-1.4) mg/dl Est Cr Clr Drug Dosing ml/min Est GFR ( Amer) ml/min Est GFR (Non-Af Amer) ml/min BUN/Creatinine Ratio (10-20) Glucose (70-99) mg/dl POC Glucose 161 H (70-99) mg/dl Calcium (8.5-10.1) mg/dl Phosphorus (2.5-4.9) mg/dl Magnesium (1.8-2.4) mg/dl Total Bilirubin (0.2-1) mg/dl AST (15-37) U/L ALT (12-78) U/L Alkaline Phosphatase (45-117) U/L Total Protein (6.4-8.2) gm/dl Albumin (3.4-5.0) gm/dl Globulin (2.5-4.0) gm/dl Albumin/Globulin Ratio (0.9-2) Vancomycin Trough (See Comment) mcg/ml PG Care Time/CCT Total # of Minutes Spent Total Time Spent with Patient: Total time spent is greater than 50% in coordination of care (as documented) at patient's floor/unit and/or counseling patient: Coding Level of Care Code 24214 Subseq Hosp Care Lvl 3 Diagnoses Dry gangrene I96 Fever R50.9 PAD (peripheral artery disease) I73.9 Ischemic ulcer of toe of left foot L97.529 Fall W19.XXXA GI bleed K92.2 GI bleed type/associated pathology: unspecified gastrointestinal h emorrhage type Symptomatic anemia D64.9 History of CVA with residual deficit I69.30 Internal carotid artery stent present Z95.828 Elevated troponin I level R77.8 CAD (coronary artery disease), [place] coronary artery I25.10 Stented coronary artery Z95.5 Diabetes mellitus E13.69 Diabetes mellitus complication status: with other specified complication Diabetes mellitus termite helper insulin use: unspecified termite helper insulin use status Diabetes mellitus type: other specified (including RODRI) Hyperlipidemia LDL goal <70 E78.5 Ischemic cardiomyopathy I25.5 Elevated transaminase level R74.01 Diarrhea R19.7 Urinary retention R33.9 Anemia D64.9 Paroxysmal atrial fibrillation I48.0 DVT prophylaxis Z29.9 Sepsis A41.9 (1) Diabetes mellitus Diabetes mellitus complication status: with other specified complication Diabetes mellitus termite helper insulin use: unspecified mcc insulin use status Diabetes mellitus type: other specified (including RODRI) Qualified Code(s): E13.69 - Other specified diabetes mellitus with other specified complication (2) GI bleed GI bleed type/associated pathology: unspecified gastrointestinal hemorrhage type Qualified Code(s): K92.2 - Gastrointestinal hemorrhage, unspecified
[2021-06-16] MEDS ORDERED: fentaNYL citrate 100 MCG/2 ML VIAL ONE (16:13)
[2021-06-16] MEDS ORDERED: ONDANSETRON INJ 2 MG/ML 2 ML VIAL ONE ×2 (16:13)
[2021-06-16] MEDS ORDERED: PROPOFOL IV EMULSION 10 MG/ML 20 ML VIAL IV ONE ×2 (16:13)
[2021-06-16] MEDS ORDERED: LIDOCAINE 2% 2 ML VIAL/AMP(20MG/ML) INFIL ONE ×2 (16:14)
[2021-06-16] MEDS ORDERED: PHENYLEPHRINE 100MCG/ML 5ML SYR ONE (16:52)
--- NOTE | 2021-06-16 17:27 | Post Operative Brief Note ---
Immediate Post Op Note v1 Date of Surgery June 16, 2021 Pre & Post Diagnosis Operation Date: 06/15/21 09:50 Pre-Op Diagnosis: ELEVATED TROPONIN, GI BLEED Post-Op Diagnosis: ELEVATED TROPONIN, GI BLEED Operation Date: 06/16/21 14:15 Pre-Op Diagnosis: Peripheral artery disease, left foot osteomyelitis, necrotizing fasciitis of left foot and ankle, diabetes mellitus Post-Op Diagnosis: Peripheral artery disease, left foot osteomyelitis, necrotizing fasciitis of left foot and ankle, diabetes mellitus I identified the patient and participated in the time-out.: Yes Procedure Operation Date: 06/15/21 09:50 Actual Procedures p Left Great Toe Amputation(Left) - Chester Waldrop M.D. s Left Foot Incision and Drainage, Placement of Wound Vac(Left) - Chester Waldrop M.D. Operation Date: 06/16/21 14:15 Actual Procedures p Left Below Knee Amputation(Left) - Bright English DO Surgeon Bright English DO Automation Operator Stanislaw Paz PA-C Estimated Blood Loss 10 Findings Consistent with Post-Op Diagnosis Specimens Left lower leg status post BKA Drains Hemovac Drain (Double) Anesthesia Type MAC Regional Complications none Disposition Accompanied Patient To Recovery: No
[2021-06-16] MEDS ORDERED: fentaNYL citrate 100 MCG/2 ML VIAL IV PRN (17:40)
[2021-06-16] MEDS: HYDROmorphone INJ 1 MG/ML SYRINGE IV PRN ×4 (17:46→18:01)
--- NOTE | 2021-06-16 18:06 | Anesthesiology Progress Note ---
Date of Service June 16, 2021 Anesthesia Post Procedure Vital Signs Vital Signs: Temp Pulse Pulse Pulse Resp BP Pulse Ox 06/16/21 17:55 65 14 139/77 99 06/16/21 17:45 65 11 L 147/77 H 100 06/16/21 17:35 69 14 147/80 H 100 06/16/21 17:27 36.8 C 72 14 132/77 99 06/16/21 16:30 36.5 C 79 18 125/65 06/16/21 14:49 37 C 71 18 149/84 H 100 06/16/21 12:42 37.0 C 89 18 110/74 98 06/16/21 08:30 77 06/16/21 08:00 36.5 C 88 16 109/64 95 06/16/21 04:15 36.8 C 82 19 143/73 H 96 06/16/21 00:32 89 06/15/21 23:01 36.8 C 84 19 150/83 H 98 06/15/21 19:23 36.9 C 86 18 164/86 H 99 Pain Intensity Bilateral Foot: Pain Intensity: 0 Left Leg: Pain Intensity: 6 Transfer of Care Handoff Completed per policy Notes Mental Status: alert / awake / arousable and participated in evaluation Patient Amnestic to Procedure: Yes Nausea / Vomiting: adequately controlled Pain: adequately controlled Airway Patency, RR, SpO2: stable & adequate BP & HR: stable & adequate Hydration State: stable & adequate Anesthetic Complications: no major complications apparent and Pt Satisfied with anesthetic care
--- NOTE | 2021-06-16 19:21 | Operative Report (OR) ---
DATE OF PROCEDURE: 06/16/2021 PREOPERATIVE DIAGNOSES: 1. Left foot osteomyelitis. 2. Necrotizing fasciitis of the foot and anterior ankle. 3. Peripheral vascular disease. 4. Diabetes mellitus. POSTOPERATIVE DIAGNOSES: 1. Left foot osteomyelitis. 2. Necrotizing fasciitis of the foot and anterior ankle. 3. Peripheral vascular disease. 4. Diabetes mellitus. PROCEDURE: Left below-knee amputation. SURGEON: Bright English DO. STUDIO MANAGER: Stanislaw Paz PA-C who was present for patient positioning, sterile prep and drape, management of retractors and instruments. He was present through the critical portions of the case i ncluding wound closure, application of sterile dressing and transport of the patient to recovery. ANESTHESIA: General, regional. SPECIMENS: Residual left lower leg, status post BKA left. DRAINS: Hemovac x2. COMPLICATIONS: None. ESTIMATED BLOOD LOSS: 10 mL. PERTINENT HISTORY: This is a 70-year-old gentleman with complicated medical history who developed os teomyelitis of the left great toe. My partner was able to amputate his left great toe yesterday out of absolute necessity as the necrosis and gangrene was causing other serious issues. During the proc edure, as noted, the patient had a fulminant necrotizing fasciitis throughout the foot, osteomyelitis extending proximal to the great toe, cellulitis and symptoms proximal to the foot and the ankle. In light of the patient's serious medical condition and severe peripheral vascular disease, it was dete rmined the patient would best benefit from a left below-knee amputation due to the low likelihood jason t the necrotizing fasciitis could be treated without more extensive debridement and possibly prolonge d repetitive procedures ultimately leading to a below-knee amputation. The patient was amenable to t he plan of care and opted to proceed with the procedure as indicated. All potential risks, benefits, complications, alternatives, rehab potential for incomplete relief of symptoms, need for further surgery, DVT, PE, , persistent pain, swelling, scarring, weakness, ne ed for further revision or amputation were discussed with the patient. The patient decided to procee d with the procedure as indicated. DESCRIPTION OF PROCEDURE: The patient was taken to the operative suite and placed supine on the Oper ating Room table. After we reviewed the consent and identification of proper operative site, appropri ate anesthesia care was administered and the lower extremity had tourniquet placed high on the thigh over cast padding. The lower extremity was then sterilely prepped and draped in the usual fashion, el evated, and exsanguinated in an Esmarch bandage. Tourniquet inflated to 350 mmHg. Next after appropri ate level of resection of the bone was determined and skin resection was extended approximately 1 to 1.5 cm distal to the level of bone resection of the tibia, the 10 blade scalpel was then used to make an incision anteriorly traversing the entirety of the lower extremity and then a long posterior flap was incised. Next the electrocautery was used to achieve hemostasis and then anterior compartments w ere sacrificed at the level of the skin resection and hemostat was placed posterior to the tibia and appropriate retractors were placed in the wound. The skin was retracted proximally, approximately 1 t o 1.5 cm. Resection of the lower extremity of the tibia was performed with a sagittal saw and then ob lique double bevel cut was made anteriorly and then sagittal saw was used to plane down the tibia to appropriate smoothed edges. A rasp was then was used to complete the process of the bony resection. N ext, the posterior compartment was carefully dissected with Metzenbaum scissors to locate the major n eurovascular bundles. These were tied with 2-0 silk ties which were doubled, tied and cut, and then d istally they were singularly tied and cut followed by transection of the neurovascular bundles with e lectrocautery. Next careful bevel cut was made in the soft tissue the posterior compartment including the gastrocsol eus to the point of the posterior aspect of the flap. The lower extremity was then passed off as spec imen. Next, the wound was irrigated with sterile normal saline and further beveling of the soft tissu es in the posterior compartment was performed until a stable flap closure was to be performed. Dog ea rs and soft tissue were excised using 15 blade scalpel and then the gastrocsoleus fascia was then use d to trial the closure with Allis clamp. It closed well without any significant soft tissue tension. After final irrigation with copious amounts of sterile normal saline, bone wax was placed in the raw bone of the bony cut surface of the tibia. The 10 [place] single Hemovac drain was then placed in the wound exiting anteriorly and proximally. The gastrocsoleus fascia was then closed to the anterior fas yaya with interrupted #1 Vicryl sutures. After the deep soft tissues and fascia were closed with abund ant muscular covering of the tibia, the dermis was closed using buried 2-0 Vicryl sutures. The skin w as then closed using 2-0 nylon sutures and the wound was injected with 0.5% Marcaine plain. A sterile compressive dressing was applied consisting of Xeroform gauze, sterile 4 x 4's, cast padding and the n a posterior slab splint was applied and overwrapped with an Gabriel wrap. Tourniquet was released. The patient was awakened and taken to recovery in stable condition. Job ID: [id number]
[2021-06-16] MEDS ORDERED: MAGNESIUM HYDROXIDE SUSP 30 ML UDC PO PRN (19:35)
[2021-06-16] MEDS ORDERED: METOCLOPRAMIDE HCL INJ 5 MG/ML 2 ML VIAL IV PRN (19:35)
[2021-06-16] MEDS ORDERED: bisacodyL 10 MG SUPP PR PRN (19:35)
[2021-06-16] MEDS ORDERED: NALOXONE HCL 0.4 MG/1 ML VIAL/CARP IV PRN (19:35)
[2021-06-16] MEDS ORDERED: oxyCODONE HCL IR 5 MG TAB (IMMEDIATE RELEASE) PO PRN (19:35)
[2021-06-16] MEDS: TAMSULOSIN HCL 0.4 MG CAP PO SCH (19:39)
[2021-06-16] MEDS: ATORVASTATIN 40 MG TAB PO SCH (19:39)
[2021-06-16] MEDS ORDERED: SENNA 8.6 MG TAB PO SCH (21:00)
[2021-06-16] MEDS: SODIUM CHLORIDE 0.9% 1000ML 1,000 ML IV SCH (22:05)
[2021-06-16] MEDS: DOCUSATE SODIUM 100 MG CAP PO SCH (22:06)
[2021-06-16] MEDS: HYDROmorphone INJ 0.5 MG/0.5 ML SYR IV PRN (22:41)
[2021-06-17] MEDS: MoRPHine SULFATE 2 MG/ML CARP IV PRN ×3 (00:42→14:48)
[2021-06-17] MEDS: CLINDAMYCIN 600 MG in DEXTROSE 5% 50 ML IV SCH ×2 (04:57→14:47)
[2021-06-17] MEDS: CEFEPIME 2,000 MG in SYRINGE 0 ML IV SCH ×2 (04:57→14:47)
[2021-06-17] MEDS: SODIUM CHLORIDE 0.9% 1000ML 1,000 ML IV SCH (04:58)
[2021-06-17 05:22] LABS: Basophils # (auto) 0.03 K/uL (0-0.2); Basophils % (auto) 0.3 %; Eosinophils # (auto) 0.54 K/uL (0-0.5); Eosinophils % (auto) 5.2 %; Hemoglobin 9.3 g/dL (14.0-18.0); Immature Granulocytes # (auto) 0.09 K/uL (0.00-0.02); Immature Granulocytes % (auto) 0.9 %; Lymphocytes # (auto) 0.93 K/uL (1.2-3.4); Mean Corpuscular Hemoglobin 29.4 pg (25-34); Mean Corpuscular Hgb Conc 33.2 g/dL (32-36); Mean Corpuscular Volume 88.6 fL (80-100); Mean Platelet Volume 8.4 fL (7.4-10.4); Monocytes # (auto) 1.01 K/uL (0.11-0.59); Monocytes % (auto) 9.7 %; Neutrophils # (auto) 7.77 K/uL (1.4-6.5); Neutrophils % (auto) 74.9 %; Platelet Count 478 K/uL (130-400); RDW Coefficient of Variation 14.5 % (11.5-14.5); RDW Standard Deviation 47.1 fL (36.4-46.3); Red Blood Count 3.16 M/uL (4.7-6.1); White Blood Count 10.37 K/uL (4.8-10.8)
[2021-06-17 05:40] LABS: Albumin Level 1.6 gm/dl (3.4-5.0); Calcium 7.7 mg/dl (8.5-10.1); Creatinine Clr Calc Pharmacy 122.2 ml/min; Est GFR (African American) 115.8 ml/min; Est GFR (Non-African American) 99.9 ml/min; Potassium 3.5 mmol/L (3.5-5.1)
[2021-06-17 05:45] LABS: Albumin Globulin Ratio 0.4 (0.9-2); Bilirubin,Total 0.8 mg/dl (0.2-1); Globulin 3.8 gm/dl (2.5-4.0); Phosphorus 2.6 mg/dl (2.5-4.9); Total Protein 5.4 gm/dl (6.4-8.2)
--- NOTE | 2021-06-17 06:31 | Orthopedic Progress Note ---
Date of Service June 17, 2021 Assessment & Plan (1) Gangrene of left foot: Plan: pod #1 s/p Left Below Knee Amputation will leave hemovac in until tomorrow, dressing change tomorrow am NWB as per medicine Admission and Anticipated Discharge Date Admission Date: June 09, 2021 Subjective pod#1 s/p Left Below Knee Amputation Review of Systems Constitutional: denies fever/chills Cardiovascular: Additional Comments: denies CP/SOB Gastrointestinal: denies nausea or vomiting Physical Exam Physical Exam: Vital Signs Temp Pulse Pulse Pulse Resp BP Pulse Ox 06/17/21 03:43 36.8 C 71 17 156/86 H 97 06/16/21 23:51 36.6 C 66 18 146/84 H 98 06/16/21 22:05 72 20 157/98 H 96 06/16/21 21:05 140/70 06/16/21 20:05 144/78 H 98 06/16/21 19:35 36.6 C 70 20 144/78 H 98 06/16/21 18:24 36 C L 65 18 143/79 H 06/16/21 18:15 36.5 C 66 19 141/77 H 95 06/16/21 18:05 66 13 138/76 99 06/16/21 17:55 65 14 139/77 99 06/16/21 17:45 65 11 L 147/77 H 100 06/16/21 17:35 69 14 147/80 H 100 06/16/21 17:27 36.8 C 72 14 132/77 99 06/16/21 16:30 36.5 C 79 18 125/65 06/16/21 14:49 37 C 71 18 149/84 H 100 06/16/21 12:42 37.0 C 89 18 110/74 98 06/16/21 08:30 77 06/16/21 08:00 36.5 C 88 16 109/64 95 Intake and Output 06/16/21 06/16/21 06/17/21 14:59 22:59 06:59 Intake Total 628 / 3485.333 2169 / 3485.333 688.333 / 3485.333 Output Total 980 / 1880 900 / 1880 Balance 628 / 3680.388 4942 / 1605.333 -211.667 / 1605.33 3 Intake: IV 628 / 1645.333 329 / 1645.333 688.333 / 1645.333 Clindamycin 60 0 mg In Dextrose 54 / 54 5% 50 ml @ 100 mls/hr IV Q8H [facility] Rx#:[id number] Magnesium Sulf ate / D5w 1 gm In 100 / 100 100 ml @ 50 ml s/hr IV ONE ONE Rx#:[id number] Potassium Phos phate 9 mmol In 253 / 253 Sodium Chlorid e 0.9% 250 ml @ 168 mls/hr IV ONE ONE Rx#: [id number] Sodium Chlorid e 0.9% 1000ML 1, 688.333 / 688.333 000 ml @ 100 m ls/hr IV .Q10H [facility] Rx#:[id number] Vancomycin HCl 1,250 mg In 275 / 550 275 / 550 Sodium Chlorid e 0.9% 250 ml @ 200 mls/hr IV Q12H [facility] Rx#: [id number] IV Perioperative 1600 / 1600 Oral 240 / 240 Output: Estimated Blood Loss 10 / 10 Urine Amount (Ca theter) 970 / 1870 900 / 1870 Allen/Indwelli ng 970 / 1870 900 / 1870 Drain Output 0 / 0 Left Knee Hemo vac 0 / 0 Other: Weight 92.3 kg 92.3 kg 89.2 kg Weight Measureme nt Method Built in [facility] Patient Weight 06/17/21 06:59 Weight 89.2 kg Musculoskeletal: left lower extremity: dressing is clean and dry, no drainage noted. thigh is soft, non-tender Results & Data ([facility]) Vital Signs (Past 12 Hours) Vital Signs Temp Pulse Resp BP Pulse Ox 06/17/21 03:43 36.8 C 71 17 156/86 H 97 06/16/21 23:51 36.6 C 66 18 146/84 H 98 06/16/21 22:05 72 20 157/98 H 96 06/16/21 21:05 140/70 06/16/21 20:05 144/78 H 98 06/16/21 19:35 36.6 C 70 20 144/78 H 98 Laboratory Results Laboratory Results WBC 10.37 K/uL (4.8-10.8) 06/17/21 04:53 RBC 3.16 M/uL (4.7-6.1) L 06/17/21 04:53 Hgb 9.3 g/dL (14.0-18.0) L 06/17/21 04:53 Hct 28.0 % (42-52) L 06/17/21 04:53 MCV 88.6 fL (80-100) 06/17/21 04:53 MCH 29.4 pg (25-34) 06/17/21 04:53 MCHC 33.2 g/dL (32-36) 06/17/21 04:53 RDW Std Deviation 47.1 fL (36.4-46.3) H 06/17/21 04:53 RDW Coeff of Vel 14.5 % (11.5-14.5) 06/17/21 04:53 Plt Count 478 K/uL (130-400) H 06/17/21 04:53 MPV 8.4 fL (7.4-10.4) 06/17/21 04:53 Immature Gran % (Auto) 0.9 % 06/17/21 04:53 Neut % (Auto) 74.9 % 06/17/21 04:53 Lymph % (Auto) 9.0 % 06/17/21 04:53 Nolan % (Auto) 9.7 % 06/17/21 04:53 Eos % (Auto) 5.2 % 06/17/21 04:53 Baso % (Auto) 0.3 % 06/17/21 04:53 Neut # (Auto) 7.77 K/uL (1.4-6.5) H 06/17/21 04:53 Lymph # (Auto) 0.93 K/uL (1.2-3.4) L 06/17/21 04:53 Nolan # (Auto) 1.01 K/uL (0.11-0.59) H 06/17/21 04:53 Eos # (Auto) 0.54 K/uL (0-0.5) H 06/17/21 04:53 Baso # (Auto) 0.03 K/uL (0-0.2) 06/17/21 04:53 Immature Gran # (Auto) 0.09 K/uL (0.00-0.02) H 06/17/21 04:53 ESR 32 mm/hr (0-20) H 06/14/21 06:04 PT 11.8 Seconds (9.0-12.0) 06/12/21 05:52 INR 1.2 (0.9-1.1) H 06/12/21 05:52 APTT 36.1 Seconds (21.0-31.0) H 06/12/21 05:52 PTT Ratio 1.4 06/12/21 05:52 ABG pH 7.49 (7.35-7.45) H 06/09/21 13:48 ABG pCO2 26 mmHg (35-46) L 06/09/21 13:48 ABG pO2 109 mmHg (80-95) H 06/09/21 13:48 ABG HCO3 19 mmol/L (19-24) 06/09/21 13:48 ABG O2 Saturation 98.4 % (90-95) H 06/09/21 13:48 ABG Base Excess -3.2 mEq/L (-9-1.8) 06/09/21 13:48 Brandt Test Pos (Pos) 06/09/21 13:48 Barometric Pressure 729.1 mm/Hg 06/09/21 13:48 Oxygen Given RA 06/09/21 13:48 Sodium 135 mmol/L (136-145) L 06/17/21 04:53 Potassium 3.5 mmol/L (3.5-5.1) 06/17/21 04:53 Chloride 105 mmol/L (98-107) 06/17/21 04:53 Carbon Dioxide 28 mmol/L (21-32) 06/17/21 04:53 Anion Gap 2.0 (3-11) L 06/17/21 04:53 BUN 10 mg/dl (7-18) 06/17/21 04:53 Creatinine 0.64 mg/dl (0.6-1.4) 06/17/21 04:53 Est Cr Clr Drug Dosing 122.2 ml/min 06/17/21 04:53 Est GFR ( Amer) 115.8 ml/min 06/17/21 04:53 Est GFR (Non-Af Amer) 99.9 ml/min 06/17/21 04:53 BUN/Creatinine Ratio 15.0 (10-20) 06/17/21 04:53 Glucose 136 mg/dl (70-99) H 06/17/21 04:53 POC Glucose 131 mg/dl (70-99) H 06/16/21 19:34 Estimat Average Glucose 166 mg/dl 06/10/21 09:17 Hemoglobin A1c 7.4 % (4.5-5.6) H 06/10/21 09:17 Osmolality 277 mOsm/kg (280-300) L 06/09/21 12:04 Calcium 7.7 mg/dl (8.5-10.1) L 06/17/21 04:53 Phosphorus 2.6 mg/dl (2.5-4.9) 06/17/21 04:53 Magnesium 2.0 mg/dl (1.8-2.4) 06/17/21 04:53 Iron 15 mcg/dl (35-175) L 06/13/21 07:29 TIBC 87 mcg/dl (250-450) L 06/13/21 07:29 Transferrin 71 mg/dl (200-360) L 06/13/21 07:29 Transferrin % Sat 15 % (20-50) L 06/13/21 07:29 Ferritin 2185.8 ng/ml (8-388) H 06/13/21 07:29 Total Bilirubin 0.8 mg/dl (0.2-1) 06/17/21 04:53 Direct Bilirubin 0.6 mg/dl (0-0.2) H 06/14/21 06:04 AST 38 U/L (15-37) H 06/17/21 04:53 ALT 66 U/L (12-78) 06/17/21 04:53 Alkaline Phosphatase 401 U/L (45-117) H 06/17/21 04:53 Total Creatine Kinase 198 U/L (39-308) 06/09/21 12:04 CK-MB (CK-2) 1.7 ng/ml (0.5-3.6) 06/09/21 12:04 CK/CKMB % Calc 0.9 (0-3.0) 06/09/21 12:04 Troponin I 0.132 ng/ml (0-0.045) H* 06/10/21 09:17 C-Reactive Protein 9.26 mg/dl (0-0.29) H 06/14/21 06:04 Total Protein 5.4 gm/dl (6.4-8.2) L 06/17/21 04:53 Albumin 1.6 gm/dl (3.4-5.0) L 06/17/21 04:53 Globulin 3.8 gm/dl (2.5-4.0) 06/17/21 04:53 Albumin/Globulin Ratio 0.4 (0.9-2) L 06/17/21 04:53 Vitamin B12 861 pg/ml (193-986) 06/13/21 07:29 Folate 18.00 ng/ml (>5.38) 06/13/21 07:29 TSH 1.120 uIu/ml (0.300-4.500) 06/09/21 12:04 Urine Color Dark Yellow 06/09/21 19:10 Urine Appearance Cloudy (Clear) A 06/09/21 19:10 Urine pH 5.5 (4.5-7.5) 06/09/21 19:10 Ur Specific [place] > 1.045 (1.000-1.030) H 06/09/21 19:10 Urine Protein 2+ (Negative) H 06/09/21 19:10 Urine Glucose (UA) Negative (Negative) 06/09/21 19:10 Urine Ketones 1+ (Negative) H 06/09/21 19:10 Urine Blood Trace (Negative) H 06/09/21 19:10 Urine Nitrite Negative (Negative) 06/09/21 19:10 Urine Bilirubin 1+ (Negative) H 06/09/21 19:10 Urine Urobilinogen Negative (Negative) 06/09/21 19:10 Ur Leukocyte Esterase Negative (Negative) 06/09/21 19:10 Urine WBC (Auto) 10-30 /hpf (0-5) H 06/09/21 19:10 Urine RBC (Auto) 0-4 /hpf (0-4) 06/09/21 19:10 U Hyaline Cast (Auto) 1-5 /lpf (0-5) 06/09/21 19:10 U Epithel Cells (Auto) >30 /lpf (0-5) H 06/09/21 19:10 Urine Bacteria (Auto) Negative (Negative) 06/09/21 19:10 Ur Renal Epithelial Cell Not Reportable 06/09/21 19:10 Urine Yeast Not Reportable 06/09/21 19:10 Stl C. diff Tox B Gene Negative Cdiff Gene (Neg) 06/12/21 Unknown Vancomycin Trough 16.3 mcg/ml (See Comment) 06/16/21 07:38 Urine Opiates Screen Neg (Neg) 06/09/21 19:10 Ur Methadone, Qual Neg (Neg) 06/09/21 19:10 Urine Barbiturates Neg (Neg) 06/09/21 19:10 Ur Phencyclidine (PCP) Neg (Neg) 06/09/21 19:10 U Amphetamin/Meth Scrn Neg (Neg) 06/09/21 19:10 MDMA (Ecstasy) Screen Neg (Neg) 06/09/21 19:10 U Benzodiazepines Scrn Neg (Neg) 06/09/21 19:10 Ur Cocaine Metabolite Neg (Neg) 06/09/21 19:10 U Marijuana (THC) Screen Neg (Neg) 06/09/21 19:10 COVID-19 Eval Order Covid19 at [facility] 06/09/21 13:22 SARS-CoV-2 (PCR) NEGATIVE (Negative) 06/09/21 13:22 Blood Type O Positive 06/09/21 14:18 Antibody Screen NEGATIVE 06/09/21 14:18 Impressions Chest X-Ray 06/09/21 12:24 XR chest 1V portable HISTORY: 70 years-old Male weakness acute weakness COMPARISON: Chest radiograph 02/13/2021 TECHNIQUE: Portable AP view of the chest FINDINGS: Cardiomediastinal and hilar silhouettes are within normal limits. No pneumothorax, pleural effusion, airspace consolidation or overt pulmonary edema. Degenerative changes of the shoulders and spine. IMPRESSION: No acute process. ACT 112: Negative or not required by law. The above report was generated using voice recognition software. It may contain grammatical, syntax or spelling errors. Electronically signed by: Edilberto Foy M.D. 06/09/2021 1:02 PM Abdomen/Pelvis CT 06/09/21 14:05 CT abd pelvis IV con only CLINICAL HISTORY: Pt c/o GI bleed COMPARISON STUDY: None. TECHNIQUE: A dose lowering technique was utilized adhering to the principles of ALARA. CT DOSE: 1190.67 mGy.cm FINDINGS: Lower chest: Minimal atelectasis at dependent portions of bilateral lower lobes. Mild respiratory motion artifact limits evaluation. 6 mm subpleural nodule is seen within the right lower lobe (4/66). Liver: The contrast-enhanced liver is normal in size. There is no intrahepatic biliary ductal dilatation. Multiple hypoattenuating lesions are seen within the right lobe of the liver, largest is measuring 4.6 x 1.8 cm in size, shows internal hyperattenuating, probably enhancing component in seen in posterior subcapsular aspect of the segment 6 (5/75) Gallbladder: Unremarkable. Spleen: Normal in size. 2.1 x 1.5 cm hypoattenuating lesion is seen within its parenchyma. Pancreas: Unremarkable. Adrenal glands: Unremarkable. Kidneys: There is symmetric renal cortical enhancement. The kidneys are normal in size without hydronephrosis.No evidence of nephrolithiasis. 8 mm hypoattenuating lesion is seen within the right renal parenchyma most likely representing cysts. 2.6 cm fluid attenuation structure is adjacent to anterior cortex of the left kidney and might represent cortical cyst (5/199) Diffuse mesenteric and retroperitoneal edema is seen. Pelvic viscera: Urinary bladder is overdistended. Prostate gland is minimally enlarged. Bowel: Small hiatal hernia is seen. Bowel loops are nondilated. Multiple calcified foci are seen within loops of small bowel and might represent ingested material. Appendix is not well seen. Diverticulosis of descending and sigmoid colon is seen. Possible sigmoid colon wall thickening is seen within left lower quadrant which might represent developing diverticulitis. Evaluation for inflammatory changes is difficult due to diffuse mesenteric edema. Peritoneum: There is no intraperitoneal free air or abdominal ascites. Diffuse mesenteric and retroperitoneal edema is seen. Vasculature: The abdominal aorta is normal in course and caliber. Adenopathy: Multiple retroperitoneal lymph nodes are seen, largest is measuring 1.4 cm in size (4/49) Skeletal structures: Multilevel degenerative changes of the spine, most severe is seen at the L4-L5 level. No definite aggressive osseous lesions are seen. IMPRESSION: 1. Diverticulosis of descending and sigmoid colon with possible diverticulitis within left lower quadrant. Multiple calcified foci within lumen of the bowel might represent ingested material. 2. Diffuse mesenteric and retroperitoneal edema. Slightly prominent retroperitoneal lymph nodes. Please correlate above-mentioned findings with prior history of neoplastic process. 3. Few hypoattenuating liver lesions, concerning lesion is seen within subcapsular aspect of the segment 6. Further evaluation with liver ultrasound might be considered. 4. Questionable hypoattenuating lesion adjacent to the left renal cortex, could represent renal cyst. 5. Small hiatal hernia. 6. 6 mm nodule within the right lower lobe. Further evaluation with nonenhanced CT of the chest on nonemergency basis is recommended. ACT 112: Positive. There are findings on this exam that require communication between the performing entity and the patient following Patient Test Result Information Act ([place] Act 112) guidelines. The above report was generated using voice recognition software. It may contain grammatical, syntax or spelling errors. Electronically signed by: Hanna Crane DO 06/09/2021 3:[address] 06/09/21 14:05 CT SCAN OF THE BRAIN WITHOUT IV CONTRAST CLINICAL HISTORY: Change in mental status. COMPARISON STUDY: CT of the brain dated 02/12/2021. TECHNIQUE: Unenhanced axial CT scan of the brain is performed from the vertex to the skull base. A dose lowering technique was utilized adhering to the p rinciples of ALA. FINDINGS: Brain parenchyma: There are age-related involutional changes noting moderate subcortical and periventricular microangiopathic change. Foci of right frontal, right parietal, and right occipital encephalomalacia are consistent with remote infarcts. A chronic lacunar infarct is seen in the right thalamus. There is no hemorrhage, mass effect, or evidence of acute territorial ischemia by CT criteria. Colon-white matter differentiation is preserved. No extra-axial fluid collection is seen. Ventricles, sulci, cisterns: Prominent secondary to involutional change. Intracranial vasculature: There is atherosclerotic calcification of the cavernous carotid and vertebral arteries. Calvarium: Unremarkable. Sinuses and mastoids: There is trace mucosal thickening within the maxillary antra. There is opacification expansion of a right ethmoid sinus which measures up to 2.1 cm. The mastoid air cells are well pneumatized. Orbits: The bony orbits are grossly intact. IMPRESSION: 1. There is no hemorrhage, mass effect, or evidence of acute territorial ischemia by CT criteria. 2. 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 ACT 112: Negative or not required by law. Electronically signed by: Eris Ceballos M.D. 06/09/2021 3:17 PM Duplex Scan Lower Extremity Artery 06/09/21 17:41 US arterial duplex LE BI HISTORY: 70 years-old Male LLE foot ulcer chronic soft tissue wound of the left lower extremity COMPARISON: None TECHNIQUE: Multiple real-time sonographic images of the bilateral lower extremity arterial structures were obtained assessing grayscale appearance, color and spectral flow. Segmental pressures were also obtained. FINDINGS: RIGHT: KEYLA of the right lower extremity measures 1.06. Mild atherosclerosis. Triphasic waveforms above the level of the knee. Biphasic and triphasic waveforms within the calf. Blunted monophasic waveforms with spectral broadening noted within the distal posterior tibial artery with peak systolic velocities measuring up to 14.7. No arterial occlusion identified. Blunted monophasic waveforms are also noted within the distal peroneal artery. LEFT: KEYLA of the left lower extremity measures 0.57. Mild atherosclerosis. Triphasic waveforms above the level of the knee. Mostly biphasic waveforms within the left calf. Elevated peak systolic velocities within the posterior tibial artery measure up to 233 cm/s. Monophasic blunted waveforms in the distal peroneal artery, peak systolic velocities measuring up to 32 cm/s. Monophasic blunted waveforms within the dorsalis pedis artery spectral broadening. Peak systolic velocities measure up to 8.7 cm. No arterial occlusion identified. IMPRESSION: 1. Abnormal left lower extremity KEYLA of 0.57. 2. Atherosclerotic vascular disease with diminished flow within the bilateral lower legs as above. 3. Elevated peak systolic velocities within the left posterior tibial artery compatible with arterial stenosis. 4. No arterial occlusion. ACT 112: Negative or not required by law. The above report was generated using voice recognition software. It may contain grammatical, syntax or spelling errors. Electronically signed by: Edilberto Foy M.D. 06/09/2021 9:33 PM Lower Extremity CTA 06/11/21 07:11 CT angio LE LT w inc wo if don HISTORY: 70 years-old Male severe PA, dry gangrene left big toe severe peripheral arterial disease. Patient presents with reported gangrenous ulcer of the left foot COMPARISON: Lower extremity arterial Doppler 06/09/2021 TECHNIQUE: CTA of the left lower extremity was obtained following the intravenous ministration of 118 mL Optiray 320. 3-D coronal and sagittal MIPS were obtained from the axial data set and were submitted for review. All measurements were obtained according to NASCET criteria. FINDINGS: Mild to moderate subcutaneous edema of the lower pretibial tissues. Moderate subcutaneous edema of the dorsal forefoot. Moderate subcutaneous edema and deep tissue air is noted within the forefoot dorsal to the first and second metatarsals extending into the first webspace and great toe. The study is motion degraded. Extensive atherosclerotic plaque. The distal superficial femoral artery and the popliteal artery are patent. Motion degradation limits evaluation of the lower extremity arteries. There is apparent high-grade narrowing of the tibioperoneal trunk. High-grade multifocal stenosis of the anterior, posterior and peroneal arteries with three-vessel flow appearing to extend to level of the ankle. No d rainable fluid collection identified. Degenerative changes of the knee and foot. Evaluation for osseous erosions of the forefoot is limited secondary to motion degradation. IMPRESSION: 1. Severe atherosclerotic vascular disease with high-grade stenoses of the tibioperoneal trunk, anterior and posterior tibial and peroneal arteries. 2. Motion degradation limits the exam. 3. Subcutaneous edema of the lower leg, foot and ankle. Subcutaneous emphysema with deep tissue gas of the dorsal forefoot and great toe may be secondary to direct extension from soft tissue ulcer versus necrotizing fasciitis. ACT 112: Negative or not required by law. The above report was generated using voice recognition software. It may contain grammatical, syntax or spelling errors. Electronically signed by: Edilberto Foy M.D. 06/11/2021 9:42 AM Liver Ultrasound 06/12/21 10:00 US liver CLINICAL HISTORY: elevated LFTs,lesions on CT COMPARISON STUDY: CT scan dated 06/09/2021 FINDINGS: There are 2 hyperechoic lesions within the right lobe the liver. These measure 46 x 28 x 26 mm, and 14 x 14 x 11 mm. The lesions are consistent with although not specific for hepatic hemangiomas. There is mild gallbladder wall thickening. No calculi were visualized. The gallbladder was relatively contracted. There is no ductal dilatation. Common bile duct was not well-visualized but appeared to measure 4 mm. There is no right-sided hydronephrosis. IMPRESSION: 1. 2 hyperechoic right lobe hepatic lesions were visualized. These lesions are consistent with although not specific for hepatic hemangiomas 2. Mild gallbladder wall thickening which may be secondary to gallbladder contraction. ACT 112: Negative or not required by law. Electronically signed by: Talib Gutierrez M.D. 06/12/2021 10:31 AM Foot MRI 06/12/21 16:46 MR foot LT wo/w con HISTORY: 70 years-old Male r/o abscess/osteomyelitis, soft tissue wound of the left great toe. Clinical concern for osteomyelitis. COMPARISON: CTA left lower extremity 06/11/2021. TECHNIQUE: Multiplanar and multisequence MRI of the left foot was obtained both with and without the use of 8.5 mL Gadavist. FINDINGS: Deep tissue gas of the forefoot is most pronounced surrounding the distal first toe. Study is motion degraded. Multifocal osteoarthritis, moderate within the first MTP joint. There is a [id number] joint effusion of the first MTP joint. Marked bone marrow edema involves the first distal phalanx, most pronounced along the mid and distal portions. Osseous erosions involve the first proximal phalangeal head with partial destruction of the first DIP joint. There is subluxation of the DIP joint with the distal phalanx subluxed volarly. There is associated apex dorsal angulation. Moderate associated enhancement of the first proximal phalanx and adjacent soft tissues. No enhancement of the dorsal tissues of the great toe. Mild enhancement of the dorsal musculature of the forefoot suggestive of myositis. Diffuse subcutaneous edema. The imaged flexor and extensor tendons appear intact. Atrophy of the intrinsic musculature. IMPRESSION: 1. Motion degraded exam. 2. 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 3. Soft tissue necrosis of the dorsal great toe with soft tissue gas suspicious for necrotizing fasciitis. 4. Diffuse cellulitis with forefoot and dorsal midfoot muscular enhancement suggestive of denervation changes versus myositis. 5. Small to moderate first MTP joint joint effusion. 6. No drainable fluid collection. ACT 112: Negative or not required by law. The above report was generated using voice recognition software. It may contain grammatical, syntax or spelling errors. Dictated: 06/13/2021 9:26 AM Transcribed: 06/13/2021 9:39 AM Aretha [id number] [email or web address] Electronically signed by: Edilberto Foy M.D. 06/13/2021 12:44 PM
[2021-06-17] MEDS: DOCUSATE SODIUM 100 MG CAP PO SCH (07:56)
[2021-06-17] MEDS: CLOPIDOGREL BISULFATE 75 MG TAB PO SCH (07:57)
[2021-06-17] MEDS: PANTOprazole 40 MG TAB PO SCH (07:57)
[2021-06-17] MEDS: MULTIVITAMIN TAB PO SCH (07:57)
[2021-06-17] MEDS: INSULIN ASPART 100 UNITS/ML 3 ML PEN SC SCH ×4 (07:58→20:07)
[2021-06-17] MEDS: SACCHAROMYCES BOULARDII 250 MG CAP PO SCH (07:58)
[2021-06-17] MEDS: ASPIRIN 81 MG ECTAB PO SCH (07:58)
[2021-06-17] MEDS: VANCOMYCIN HCL 1,250 MG in SODIUM CHLORIDE 0.9% 250 ML IV SCH ×2 (10:48→20:09)
[2021-06-17] MEDS: INSULIN GLARGINE SOLOSTAR 100 UNITS/ML 3 ML PEN SC SCH (10:48)
[2021-06-17] MEDS: METOPROLOL SUCC 50MG EXT REL TAB PO SCH (11:32)
[2021-06-17] MEDS: HYDROmorphone INJ 0.5 MG/0.5 ML SYR IV PRN ×2 (11:32→20:03)
[2021-06-17] MEDS: ACETAMINOPHEN 325 MG TAB PO PRN (13:41)
[2021-06-17] MEDS: CHOLESTYRAMINE LIGHT 4 GM PKT PO SCH ×2 (14:45→20:11)
--- NOTE | 2021-06-17 15:15 | Hospitalist Progress Note ---
Date of Service June 17, 2021 Assessment & Plan (1) Dry gangrene: Plan: left great toe and foot is nearly entirely black, foul odor, with surrounding cellulitis and nec fasciitis of dorsal foot up to ankle Wound culture growing MRSA and anaerobic GNR Prevotella as well as Anaerococcus prevotii MRI showed OM of great toe with suspected dorsal nec fasciitis, surrounding cellulitis leukocytosis finally resolved, fever finally resolved after changing abx on 06/13 and now s/p left BKA with Ortho on 06/16 Appreciate vascular surgery consultation-he does have flow to the foot despite the severe PAD and they do not recommend vascular surgical intervention at this time, however recommend orthopedic intervention -Consult orthopedic surgery-appreciate surgical management-initially Left great toe amputation and foot debridement on 06/15, then BKA 06/16 -Postoperative care as per orthopedic surgery-dressing and drain in place -Initially on vancomycin to cover for MRSA, cefepime and Clindamycin for antitoxin effect as well as for anaerobic coverage---> NARROW down to IV Vanco and Flagyl on 06/17 (dc Cefepime and clinda) -Follow blood cultures-no growth to date -Follow CBC, CMP -having more pain on POD#1---> add on gabapentin 100mg po bid, oxycodone 5mg po q6h prn, continue IV Dilaudid for severe pain will need PT/OT and SNF placement -Psych consult for mood changes associated with recent BKA (2) Sepsis: Plan: Sepsis, POA-resolved as above (3) Fever: Plan: As above, secondary to left foot infection, now no fever since 06/13 if spikes again, repeat blood cultures (4) PAD (peripheral artery disease): Plan: severe stenosis of tibioperoneal trunk severe anterior, posterior tibial artery stenosis severe peroneal artery stenosis Does have flow likely collaterals to the left foot consult vascular surgery appreciated as above-no intervention at this time (5) Ischemic ulcer of toe of left foot: Plan: arterial doppler with left KEYLA of 0.57 suggesting severe disease plan for CT angiogram left leg - severe disease seen as noted above Continue dual antiplatelet therapy, statin (6) Fall: Plan: fell outside his home, his knees gave out, did not have strength to get up alone no syncope, he was conscious and remembers everything hold on PT/OT as don't want him putting weight on left foot for time being -Likely secondary to generalized weakness from infection (7) GI bleed: Plan: initially suspected, but Hb of 17 in the spring could have been false or hemoconcentration Hemoglobin upon admission 11.0, then 11.4, then 10.2, 9.1 and stable BUN not going up,-does not suggest upper GI bleed Heme positive stools in the ED but he has NOT had any melena and reported no bleeding Have since resumed aspirin and Plavix due to severe PAD and dry gangrene Continue Protonix 40 mg PO daily (8) Symptomatic anemia: Plan: Hb of 11 should not have caused a fall, he had weakness in knees did not have syncope Hemoglobin 9.1 today as above Also with Hemoccult stool positive as above follow CBC (9) History of CVA with residual deficit: Plan: Status post right ICA stent, with multiple bilateral strokes Continue aspirin and Plavix (10) Internal carotid artery stent present: Plan: Continue aspirin and Plavix, statin (11) Elevated troponin I level: Plan: Elevated troponin I level/CAD/stented coronary artery- no chest pain, myocardial demand ischemia has known severe CAD and needs CABG but refuses (12) CAD (coronary artery disease), [place] coronary artery: Plan: had emergent stent in left main in 01/2021 sent for evaluation for CABG at [place] they recommended CABG but the patient was very nervous, scared due to open heart procedure he has not followed up further, not interested in getting CABG thus medical management will be best we can do Continue aspirin, Plavix, statin, metoprolol (13) Stented coronary artery: Plan: See above (14) Diabetes mellitus: Plan: Hold Metformin while inpatient and receiving IV dye Placed on Accu-Cheks before meals and at bedtime/every 6 hours with NovoLog coverage per scale hemoglobin A1c with much improved control down 7.4 from 11.4 in January monitor for hypoglycemia, no episodes he has lost 40 lbs intentionally by eating well, strict low carb diet and started on Metformin after his hospitalization for stroke and [place] in 01/2021 (15) Hyperlipidemia LDL goal <70: Plan: Continue atorvastatin (16) Ischemic cardiomyopathy: Plan: With moderately reduced LV function continue metoprolol at lower dose than home dose and titrate back up as able to Add his GABRIEL inhibitor back on after surgery if blood pressure stable Needs revascularization but is declining to have CABG (17) Elevated transaminase level: Plan: Total bilirubin mildly elevated, AST, ALT, and alkaline phosphatase all elevated but now significantly improved after discontinuing Zosyn May have been secondary to Zosyn Alk phos up higher from bony involvement of foot with infection Liver ultrasound -shows 2 larger hemangiomas, and mildly thickened gallbladder but it was contracted this patient was not fasting He has no abdominal pain, suspect could be secondary to ongoing infection or side effect of antibiotics Follow LFTs in the morning (18) Diarrhea: Plan: In the setting of IV antibiotics-ongoing but improving Check C. difficile-negative -added Florastor -Added cholestyramine (19) Urinary retention: Plan: Requiring straight cath x2 on 06/12 and again on 06/15 Has a history of nocturia prior to admission Added Flomax on 06/12 Place Allen catheter on 06/15 as has required persistent straight catheterization (20) Anemia: Plan: As above, hemoglobin 9.3 Follow CBC (21) Paroxysmal atrial fibrillation: Plan: had Afib x 4 hours on AM of 06/12 and also on 06/09 Continue to monitor on telemetry He is not a good candidate for anticoagulation at this time given Hemoccult positive stool and declining hemoglobin It was short-lived continue metoprolol (22) DVT prophylaxis: Plan: SCDs only given Hemoccult positive stool Disposition -continued stay in PCU, eventually to SNF at [facility] when ok from Ortho standpoint Changed CODE STATUS to DNR/DNI, patient filled out advanced directives Admission and Anticipated Discharge Date Admission Date: June 09, 2021 Subjective Pt having shooting pains in his left stump at [facility] site. No CP or SOB, Still having some loose stools. Making urine. Tele with NSR, rates 60-70s Review of Systems Review of Systems: All systems reviewed & are unremarkable except as noted in HPI & below Pt's brother pulls me aside in hallway and says that pt is clearly with depressed mood and requests Psychotherapy Physical Exam Constitutional: WD/WN, vitals as above Eyes: + anicteric sclerae Neck: trachea midline, no thyromegaly Respiratory: normal respiratory effort, lungs clear to auscultation Cardiovascular: RRR, no murmur, no edema Chest (Breasts): Chest: normal inspection of chest Gastrointestinal (Abdomen): normal bowel sounds, soft, nontender, no hepatosplenomegaly Musculoskeletal: Extremities: + extremities abnormal to inspection (Left lower extremity with large Gabriel wrap and BKA), no cyanosis and no clubbing Skin: no rashes, warm and dry Neurologic: moves all extremities and awake; no focal motor deficits Psychiatric: Orientation: alert, oriented to person, oriented to place and cooperative Genitourinary: Allen in place Lymphatic: no lymphedema Results & Data Results & Data ([facility]) Vital Signs (Past 12 Hours) Vital Signs Temp Pulse Resp BP Pulse Ox 06/17/21 11:00 37.0 C 80 18 147/80 H 96 06/17/21 07:30 36.5 C 18 98/54 L 100 06/17/21 03:43 36.8 C 71 17 156/86 H 97 Laboratory Results 06/17/21 06/17/21 06/17/21 Range/Units 11:34 07:29 04:53 WBC (4.8-10.8) K/uL RBC (4.7-6.1) M/uL Hgb (14.0-18.0) g/dL Hct (42-52) % MCV (80-100) fL MCH (25-34) pg MCHC (32-36) g/dL RDW Std Deviation (36.4-46.3) fL RDW Coeff of Vel (11.5-14.5) % Plt Count (130-400) K/uL MPV (7.4-10.4) fL Immature Gran % (Auto) % Neut % (Auto) % Lymph % (Auto) % [place] % (Auto) % Eos % (Auto) % Baso % (Auto) % Neut # (Auto) (1.4-6.5) K/uL Lymph # (Auto) (1.2-3.4) K/uL [place] # (Auto) (0.11-0.59) K/uL Eos # (Auto) (0-0.5) K/uL Baso # (Auto) (0-0.2) K/uL Immature Gran # (Auto) (0.00-0.02) K/uL Sodium 135 L (136-145) mmol/L Potassium 3.5 (3.5-5.1) mmol/L Chloride 105 (98-107) mmol/L Carbon Dioxide 28 (21-32) mmol/L Anion Gap 2.0 L (3-11) BUN 10 (7-18) mg/dl Creatinine 0.64 (0.6-1.4) mg/dl Est Cr Clr Drug Dosing 122.2 ml/min Est GFR ( Amer) 115.8 ml/min Est GFR (Non-Af Amer) 99.9 ml/min BUN/Creatinine Ratio 15.0 (10-20) Glucose 136 H (70-99) mg/dl POC Glucose 242 H 151 H (70-99) mg/dl Calcium 7.7 L (8.5-10.1) mg/dl Phosphorus 2.6 (2.5-4.9) mg/dl Magnesium 2.0 (1.8-2.4) mg/dl Total Bilirubin 0.8 (0.2-1) mg/dl AST 38 H (15-37) U/L ALT 66 (12-78) U/L Alkaline Phosphatase 401 H (45-117) U/L Total Protein 5.4 L (6.4-8.2) gm/dl Albumin 1.6 L (3.4-5.0) gm/dl Globulin 3.8 (2.5-4.0) gm/dl Albumin/Globulin Ratio 0.4 L (0.9-2) 06/17/21 06/16/21 06/16/21 Range/Units 04:53 19:34 17:28 WBC 10.37 (4.8-10.8) K/uL RBC 3.16 L (4.7-6.1) M/uL Hgb 9.3 L (14.0-18.0) g/dL Hct 28.0 L (42-52) % MCV 88.6 (80-100) fL MCH 29.4 (25-34) pg MCHC 33.2 (32-36) g/dL RDW Std Deviation 47.1 H (36.4-46.3) fL RDW Coeff of Vel 14.5 (11.5-14.5) % Plt Count 478 H (130-400) K/uL MPV 8.4 (7.4-10.4) fL Immature Gran % (Auto) 0.9 % Neut % (Auto) 74.9 % Lymph % (Auto) 9.0 % [place] % (Auto) 9.7 % Eos % (Auto) 5.2 % Baso % (Auto) 0.3 % Neut # (Auto) 7.77 H (1.4-6.5) K/uL Lymph # (Auto) 0.93 L (1.2-3.4) K/uL [place] # (Auto) 1.01 H (0.11-0.59) K/uL Eos # (Auto) 0.54 H (0-0.5) K/uL Baso # (Auto) 0.03 (0-0.2) K/uL Immature Gran # (Auto) 0.09 H (0.00-0.02) K/uL Sodium (136-145) mmol/L Potassium (3.5-5.1) mmol/L Chloride (98-107) mmol/L Carbon Dioxide (21-32) mmol/L Anion Gap (3-11) BUN (7-18) mg/dl Creatinine (0.6-1.4) mg/dl Est Cr Clr Drug Dosing ml/min Est GFR ( Amer) ml/min Est GFR (Non-Af Amer) ml/min BUN/Creatinine Ratio (10-20) Glucose (70-99) mg/dl POC Glucose 131 H 136 H (70-99) mg/dl Calcium (8.5-10.1) mg/dl Phosphorus (2.5-4.9) mg/dl Magnesium (1.8-2.4) mg/dl Total Bilirubin (0.2-1) mg/dl AST (15-37) U/L ALT (12-78) U/L Alkaline Phosphatase (45-117) U/L Total Protein (6.4-8.2) gm/dl Albumin (3.4-5.0) gm/dl Globulin (2.5-4.0) gm/dl Albumin/Globulin Ratio (0.9-2) PG Care Time/CCT Total # of Minutes Spent Total Time Spent with Patient: Total time spent is greater than 50% in coordination of care (as documented) at patient's floor/unit and/or counseling patient: Coding Level of Care Code 20826 Subseq Hosp Care Lvl 3 Diagnoses Dry gangrene I96 Sepsis A41.9 Fever R50.9 PAD (peripheral artery disease) I73.9 Ischemic ulcer of toe of left foot L97.529 Fall W19.XXXA GI bleed K92.2 GI bleed type/associated pathology: unspecified gastrointestinal hemorrhage type Symptomatic anemia D64.9 History of CVA with residual deficit I69.30 Internal carotid artery stent present Z95.828 Elevated troponin I level R77.8 CAD (coronary artery disease), [place] coronary artery I25.10 Stented coronary artery Z95.5 Diabetes mellitus E13.69 Diabetes mellitus complication status: with other specified complication Diabetes mellitus terminal clerk insulin use: unspecified prison insulin use status Diabetes mellitus type: other specified (including RODRI) Hyperlipidemia LDL goal <70 E78.5 Ischemic cardiomyopathy I25.5 Elevated transaminase level R74.01 Diarrhea R19.7 Urinary retention R33.9 Anemia D64.9 Paroxysmal atrial fibrillation I48.0 DVT prophylaxis Z29.9 (1) GI bleed GI bleed type/associated pathology: unspecified gastrointestinal hemorrhage type Qualified Code(s): K92.2 - Gastrointestinal hemorrhage, unspecified (2) Diabetes mellitus Diabetes mellitus complication status: with other specified complication Diabetes mellitus terminal clerk insulin use: unspecified prison insulin use status Diabetes mellitus type: other specified (including RODRI) Qualified Code(s): E13.69 - Other specified diabetes mellitus with other specified complication
[2021-06-17] MEDS: GABAPENTIN 100 MG CAP PO SCH ×2 (17:21→20:05)
[2021-06-17] MEDS: metroNIDAZOLE 500 MG/100 ML BAG IV SCH (17:21)
[2021-06-17] MEDS: TAMSULOSIN HCL 0.4 MG CAP PO SCH (20:06)
[2021-06-17] MEDS: ATORVASTATIN 40 MG TAB PO SCH (20:06)
[2021-06-18] MEDS: oxyCODONE HCL IR 5 MG TAB (IMMEDIATE RELEASE) PO PRN ×2 (00:11→08:29)
[2021-06-18] MEDS: metroNIDAZOLE 500 MG/100 ML BAG IV SCH ×3 (00:12→17:22)
[2021-06-18 05:00] LABS: Basophils # (auto) 0.01 K/uL (0-0.2); Basophils % (auto) 0.1 %; Eosinophils # (auto) 0.27 K/uL (0-0.5); Eosinophils % (auto) 2.8 %; Hematocrit (blood only) 25.6 % (42-52); Hemoglobin 8.8 g/dL (14.0-18.0); Lymphocytes # (auto) 1.11 K/uL (1.2-3.4); Lymphocytes % (auto) 11.5 %; Mean Corpuscular Hemoglobin 29.5 pg (25-34); Mean Corpuscular Hgb Conc 34.4 g/dL (32-36); Mean Corpuscular Volume 85.9 fL (80-100); Mean Platelet Volume 8.2 fL (7.4-10.4); Monocytes # (auto) 0.94 K/uL (0.11-0.59); Monocytes % (auto) 9.7 %; Neutrophils # (auto) 7.24 K/uL (1.4-6.5); Neutrophils % (auto) 74.9 %; Platelet Count 436 K/uL (130-400); RDW Coefficient of Variation 14.2 % (11.5-14.5); RDW Standard Deviation 44.2 fL (36.4-46.3); Red Blood Count 2.98 M/uL (4.7-6.1); White Blood Count 9.67 K/uL (4.8-10.8)
[2021-06-18 05:40] LABS: Albumin Level 1.6 gm/dl (3.4-5.0); BUN Creatinine Ratio 21.5 (10-20); Calcium 7.4 mg/dl (8.5-10.1); Creatinine Clr Calc Pharmacy 145.3 ml/min; Est GFR (African American) 125.1 ml/min; Magnesium 1.9 mg/dl (1.8-2.4); Potassium 3.4 mmol/L (3.5-5.1)
[2021-06-18 05:46] LABS: Albumin Globulin Ratio 0.4 (0.9-2); Bilirubin,Total 0.8 mg/dl (0.2-1); Globulin 3.7 gm/dl (2.5-4.0); Phosphorus 1.9 mg/dl (2.5-4.9); Total Protein 5.3 gm/dl (6.4-8.2)
--- NOTE | 2021-06-18 07:02 | Orthopedic Progress Note ---
Date of Service June 18, 2021 Assessment & Plan (1) Gangrene of left foot: Plan: pod #2 s/p Left Below Knee Amputation hemovac removed this am, dressing removed and changed, no issues. NWB as per medicine Admission and Anticipated Discharge Date Admission Date: June 09, 2021 Subjective POD #2 s/p left BKA denies fever/chills pain currently well controlled Review of Systems Constitutional: denies fever/chills Cardiovascular: Additional Comments: denies CP/SOB Gastrointestinal: denies nausea or vomiting Physical Exam Physical Exam: Vital Signs Temp Pulse Pulse Resp BP Pulse Ox 06/18/21 04:00 37.0 C 71 18 142/81 H 98 06/17/21 19:00 37.3 C 77 20 151/82 H 99 06/17/21 17:49 84 06/17/21 15:00 37.0 C 86 20 145/71 H 95 06/17/21 11:00 37.0 C 80 18 147/80 H 96 06/17/21 08:00 82 06/17/21 07:30 36.5 C 18 98/54 L 100 Intake and Output 06/17/21 06/18/21 06/18/21 22:59 06:59 14:59 Intake Total 1549 / 2874 400 / 2874 Output Total 250 / 850 200 / 850 Balance 1299 / 2024 200 / 2023 Intake: IV 1429 / 1804 100 / 1804 Clindamycin 60 0 mg In Dextrose 54 / 54 5% 50 ml @ 100 mls/hr IV Q8H REESE Rx#:[id number] Sodium Chlorid e 0.9% 1000ML 1, 1000 / 1000 000 ml @ 100 m ls/hr IV .Q10H REESE Rx#:[id number] Vancomycin HCl 1,250 mg In 275 / 550 Sodium Chlorid e 0.9% 250 ml @ 200 mls/hr IV Q12H REESE Rx#: [id number] metroNIDAZOLE 500 mg In 100 ml 100 / 200 100 / 200 @ 100 mls/hr I V Q8H REESE Rx#: [id number] Oral 120 / 1070 300 / 1070 Output: Urine Amount (Ca theter) 250 / 850 200 / 850 Allen/Indwelli ng 250 / 450 200 / 450 Other: Weight 89.4 kg Weight Measureme nt Method Built in Bedscale Constitutional: WD/WN, vitals as above Musculoskeletal: left leg: dressing removed, little to no drainage noted in hemovac. incision is clean and dry, no active drainage noted. thigh soft, non tender. no erythema noted. Results & Data ([facility]) Vital Signs (Past 12 Hours) Vital Signs Temp Pulse Resp BP Pulse Ox 06/18/21 04:00 37.0 C 71 18 142/81 H 98
[2021-06-18] MEDS ORDERED: MAGNESIUM SULFATE / D5W 1 GM/100 ML BAG IV ONE (07:43)
[2021-06-18] MEDS ORDERED: POTASSIUM PHOS 3 MMOL/1 ML INFUSION IV STA (07:43)
[2021-06-18] MEDS ORDERED: POTASSIUM PHOSPHATE 15 MMOL in SODIUM CHLORIDE 0.9% 250 ML IV ONE (08:00)
[2021-06-18] MEDS: SACCHAROMYCES BOULARDII 250 MG CAP PO SCH (08:30)
[2021-06-18] MEDS: GABAPENTIN 100 MG CAP PO SCH ×2 (08:30→21:18)
[2021-06-18] MEDS: METOPROLOL SUCC 50MG EXT REL TAB PO SCH ×2 (08:30→21:11)
[2021-06-18] MEDS: ASPIRIN 81 MG ECTAB PO SCH (08:31)
[2021-06-18] MEDS: CLOPIDOGREL BISULFATE 75 MG TAB PO SCH (08:31)
[2021-06-18] MEDS: MULTIVITAMIN TAB PO SCH (08:31)
[2021-06-18] MEDS: PANTOprazole 40 MG TAB PO SCH (08:31)
[2021-06-18] MEDS: VANCOMYCIN HCL 1,250 MG in SODIUM CHLORIDE 0.9% 250 ML IV SCH ×2 (08:32→21:20)
[2021-06-18] MEDS: CHOLESTYRAMINE LIGHT 4 GM PKT PO SCH ×2 (11:12→21:17)
[2021-06-18] MEDS: INSULIN ASPART 100 UNITS/ML 3 ML PEN SC SCH ×4 (12:20→21:12)
[2021-06-18] MEDS: INSULIN GLARGINE SOLOSTAR 100 UNITS/ML 3 ML PEN SC SCH (12:21)
--- NOTE | 2021-06-18 15:27 | Psychiatric Consultation ---
Date of Consultation June 18, 2021 Impression / Recommendations Impression 70-year-old male with recent below-knee amputation secondary to diabetes and infection. Psychiatry was consulted due to concern for low mood. Upon evaluation today patient's mood is appropriate given the situation. Denying any SI or crying spells. Plan: -Patient will be offered outpatient resources, -No medication at this time. Psych History Chief Complaint "I'm okay". History of Present Illness HPI as per psychiatric liaison "patient is a single 70 y/o male who lives alone in [place]. Patient had a L BKA and is recovering. States he had been in fairly good health until January, when he had a stroke and a heart attack. States he quit going out for "beers and pizza" since then and started walking and attempting to be more healthy. States he typically does not have 3 "square meals" but believes he has been eating better. Says he was able to get his A1C down to 6+, which had been an improvement. States he typically falls asleep with the tv on and does sleep most of most nights, but had never felt fully rested. States the food this morning tasted better than food did a few weeks ago. "I believe they removed the source of the problem, so I can start to feel better now." States he is feeling a better than yesterday, but does have some anxiety related to the unknown of what's next for him, "Will I get a prosthetic? Will I be able to live in my house that I lived in before? Where will I be going and when I'll be going. Reports he was never and has no children, has a brother, Vinicius. States his supports are a few friends who live locally. States he grew up in [place] and one of his happiest days was when he left [place] and moved to [place]. Worked in the [employer] and retired 10 years ago. Will provide patient with a resource book and offer outpatient services. " Upon evaluation this afternoon patient endorses the above information is accurate. He denies any depression or low mood. He denies any past history of suicide attempts or psychiatric care. Patient states that he is try to make the best of the situation and take his problems in stride. No manic or psychotic symptoms witnessed. Allergies Allergy/AdvReac Type Severity Reaction Status Date / Time No Known Allergies Allergy Unverified 06/09/21 13:36 Home Medications Medication Instructions Recorded Confirmed Type aspirin 81 mg tablet,delayed 81 mg PO QAM 06/09/21 06/09/21 History release atorvastatin 80 mg tablet (Lipitor) 80 mg PO HS 06/09/21 06/09/21 History clopidogrel 75 mg tablet (Plavix) 75 mg PO QAM 06/09/21 06/09/21 History folic acid 3 mg-vit B complex with 1 tab PO QAM 06/09/21 06/09/21 History C-selenium 70 mcg-zinc 15 mg tablet lisinopril 20 mg tablet (Zestril) 20 mg PO QAM 06/09/21 06/09/21 History metformin 500 mg tablet,extended 1,000 mg PO BIDM 06/09/21 06/09/21 History release 24 hr metoprolol succinate 100 mg 100 mg PO BIDM 06/09/21 06/09/21 History tablet,extended release 24 hr (Toprol XL) Personal History Beliefs That Will Affect Care: None Patient History Medical History (Updated 06/16/21 @ 15:40 by Jessenia Albarado MD) Anemia CAD (coronary artery disease), [place] coronary artery 02/12/2021: PCI with HERNANDEZ to the distal left main and proximal LAD. Additional distal LAD disease. Large non dominant left circumflex with moderate diffuse disease. Long subtotal occlusion of the distal vessel. Large dominant RCA with focal 70-80% lesion in the mid vessel. Diffuse [id number] distal disease. Diabetes mellitus Family history non-contributory Gangrene of left foot History of CVA with residual deficit Hyperlipidemia LDL goal <70 Internal carotid artery stent present Ischemic cardiomyopathy LBBB (left bundle branch block) Mitral regurgitation Paroxysmal atrial fibrillation Peripheral vascular disease Surgical History (Updated 06/15/21 @ 17:17 by Robbin Mendoza MD) Stented coronary artery Family History Other Family history non-contributory Social History Smoking Status: Former smoker Hx Alcohol Use: No Hx Substance Use: No Preferred Language: Greenlandic Communication Ability: Effective Grain Receiver Required: No Beliefs That Will Affect Care: None Current Living Situation: Alone Current Living Situation Comment: unknown Feels Safe at Home: Yes Assistive Devices: None Physical Exam Psychiatric: Orientation: oriented x 3 Apperance: appropriately groomed Eye Contact: + fair eye contact Motor Behavior: no abnormal motor movements Speech: normal rate/rhythm/volume of speech Affect: mood congruent with affect Mood: no depressed mood and no anxious mood "fine" Thought Process: linear/logical thought process Thought Content: reality based without delusions Suicidal Thoughts: denies suicidal thoughts, denies suicidal plan and denies suicidal intent Homicidal Thoughts: denies homicidal thoughts, denies homicidal plan and denies homicidal intent Hallucinations: no auditory hallucinations and no visual hallucinations Cognition: remote memory grossly intact Estimated Intelligence: consistent with education level Insight: + fair insight Judgement: + fair judgement Vital Signs (Past 24 Hours): Last Vital Signs Temp 36.8 C 06/18/21 11:30 Pulse 75 06/18/21 11:30 Resp 18 06/18/21 11:30 BP 149/82 H 06/18/21 11:30 Pulse Ox 93 06/18/21 08:00 Review of Systems All systems reviewed & are unremarkable except as noted in HPI & below Results & Data (PSY) Medications Administered Acetaminophen (Acetaminophen 325 Mg Tab) 650 mg PO Q4H PRN PRN Reason: pain or fever Stop: 07/10/21 20:47 Last Admin: 06/17/21 13:41 Dose: 650 mg Documented by: [id number] Admin: 06/12/21 02:52 Dose: 650 mg Documented by: [id number] Admin: 06/10/21 21:02 Dose: 650 mg Documented by: [id number] Aspirin (Aspirin 81 Mg Ectab) [facility] [place] Stop: 07/10/21 16:29 Last Admin: 06/18/21 08:31 Dose: 81 mg Documented by: [id number] Admin: 06/17/21 07:58 Dose: 81 mg Documented by: [id number] Admin: 06/16/21 08:11 Dose: 81 mg Documented by: [id number] Admin: 06/15/21 09:35 Dose: Not Given Documented by: [id number] Admin: 06/14/21 12:45 Dose: 81 mg Documented by: [id number] Admin: 06/14/21 08:38 Dose: Not Given Documented by: [id number] Admin: 06/13/21 08:10 Dose: 81 mg Documented by: [id number] Admin: 06/12/21 08:52 Dose: 81 mg Documented by: [id number] Admin: 06/11/21 08:00 Dose: 81 mg Documented by: [id number] Admin: 06/10/21 16:42 Dose: 81 mg Documented by: [id number] Atorvastatin Calcium (Atorvastatin 40 Mg Tab) 80 mg PO [facility] Stop: 07/10/21 20:59 Last Admin: 06/17/21 20:06 Dose: 80 mg Documented by: [id number] Admin: 06/16/21 19:39 Dose: 80 mg Documented by: [id number] Admin: 06/15/21 21:05 Dose: 80 mg Documented by: [id number] Admin: 06/14/21 21:23 Dose: 80 mg Documented by: [id number] Admin: 06/13/21 20:30 Dose: 80 mg Documented by: [id number] Admin: 06/12/21 21:38 Dose: 80 mg Documented by: [id number] Admin: 06/11/21 20:19 Dose: 80 mg Documented by: [id number] Admin: 06/10/21 20:27 Dose: 80 mg Documented by: [id number] Cholestyramine Resin (Cholestyramine Light 4 Gm Pkt) 4 gm PO BID@1000,2200 [facility] Stop: 07/15/21 21:59 Last Admin: 06/18/21 11:12 Dose: 4 gm Documented by: [id number] Admin: 06/17/21 20:11 Dose: 4 gm Documented by: [id number] Admin: 06/17/21 14:45 Dose: 4 gm Documented by: [id number] Admin: 06/16/21 19:41 Dose: 4 gm Documented by: [id number] Admin: 06/16/21 12:14 Dose: Not Given Documented by: [id number] Admin: 06/15/21 22:29 Dose: 4 gm Documented by: [id number] Clopidogrel Bisulfate (Clopidogrel Bisulfate 75 Mg Tab) 75 mg PO [facility] Stop: 07/10/21 16:29 Last Admin: 06/18/21 08:31 Dose: 75 mg Documented by: [id number] Admin: 06/17/21 07:57 Dose: 75 mg Documented by: [id number] Admin: 06/16/21 08:11 Dose: 75 mg Documented by: [id number] Admin: 06/15/21 09:35 Dose: Not Given Documented by: [id number] Admin: 06/14/21 12:45 Dose: 75 mg Documented by: [id number] Admin: 06/14/21 08:38 Dose: Not Given Documented by: [id number] Admin: 06/13/21 08:10 Dose: 75 mg Documented by: [id number] Admin: 06/12/21 08:52 Dose: 75 mg Documented by: [id number] Admin: 06/11/21 08:00 Dose: 75 mg Documented by: [id number] Admin: 06/10/21 16:42 Dose: 75 mg Documented by: [id number] Gabapentin (Gabapentin 100 Mg Cap) 100 mg PO BID [facility] Stop: 07/17/21 15:44 Last Admin: 06/18/21 08:30 Dose: 100 mg Documented by: [id number] Admin: 06/17/21 20:05 Dose: 100 mg Documented by: [id number] Admin: 06/17/21 17:21 Dose: 100 mg Documented by: [id number] Hydromorphone HCl (Hydromorphone Inj 0.5 Mg/0.5 Ml Syr) 0.5 mg IV Q4H PRN PRN Reason: Pain or Pre PT Stop: 06/30/21 19:34 Last Admin: 06/17/21 20:03 Dose: 0.5 mg Documented by: [id number] Admin: 06/17/21 11:32 Dose: 0.5 mg Documented by: [id number] Admin: 06/16/21 22:41 Dose: 0.5 mg Documented by: [id number] Vancomycin HCl 1,250 mg/ (Sodium Chloride) 275 mls @ 200 mls/hr IV Q12H [facility]; Protocol Stop: 06/20/21 23:59 Last Infusion: 06/18/21 11:07 Dose: 0 mls/hr Documented by: [id number] Admin: 06/18/21 08:32 Dose: 200 mls/hr Documented by: [id number] Infusion: 06/17/21 22:54 Dose: 200 mls/hr Documented by: [id number] Admin: 06/17/21 20:09 Dose: 200 mls/hr Documented by: [id number] Infusion: 06/17/21 12:18 Dose: 0 mls/hr Documented by: [id number] Admin: 06/17/21 10:48 Dose: 200 mls/hr Documented by: [id number] Infusion: 06/16/21 21:52 Dose: 0 mls/hr Documented by: [id number] Admin: 06/16/21 19:38 Dose: 200 mls/hr Documented by: [id number] Infusion: 06/16/21 12:12 Dose: 0 mls/hr Documented by: [id number] Admin: 06/16/21 10:37 Dose: 200 mls/hr Documented by: [id number] Infusion: 06/15/21 22:47 Dose: 0 mls/hr Documented by: [id number] Admin: 06/15/21 20:53 Dose: 200 mls/hr Documented by: [id number] Infusion: 06/15/21 10:50 Dose: 0 mls/hr Documented by: [id number] Infusion: 06/15/21 09:20 Dose: 200 mls/hr Documented by: [id number] Infusion: 06/15/21 08:20 Dose: 0 mls/hr Documented by: [id number] Admin: 06/15/21 08:18 Dose: 200 mls/hr Documented by: [id number] Infusion: 06/14/21 21:36 Dose: 0 mls/hr Documented by: [id number] Admin: 06/14/21 20:04 Dose: 200 mls/hr Documented by: [id number] Infusion: 06/14/21 10:12 Dose: 0 mls/hr Documented by: [id number] Admin: 06/14/21 08:37 Dose: 200 mls/hr Documented by: [id number] Infusion: 06/13/21 20:54 Dose: 0 mls/hr Documented by: [id number] Admin: 06/13/21 19:27 Dose: 200 mls/hr Documented by: [id number] Infusion: 06/13/21 11:01 Dose: 0 mls/hr Documented by: [id number] Admin: 06/13/21 08:40 Dose: 200 mls/hr Documented by: [id number] Infusion: 06/13/21 00:23 Dose: 0 mls/hr Documented by: [id number] Admin: 06/12/21 23:00 Dose: 200 mls/hr Documented by: [id number] Infusion: 06/12/21 21:33 Dose: 0 mls/hr Documented by: [id number] Infusion: 06/12/21 09:15 Dose: 0 mls/hr Documented by: [id number] Admin: 06/12/21 09:05 Dose: 200 mls/hr Documented by: [id number] Infusion: 06/11/21 22:07 Dose: 0 mls/hr Documented by: [id number] Admin: 06/11/21 20:19 Dose: 200 mls/hr Documented by: [id number] Metronidazole (Flagyl) 500 mg in 100 mls @ 100 mls/hr IV Q8H [facility]; Protocol Stop: 06/24/21 15:59 Last Infusion: 06/18/21 10:59 Dose: 0 mls/hr Documented by: [id number] Admin: 06/18/21 08:32 Dose: 100 mls/hr Documented by: [id number] Infusion: 06/18/21 04:19 Dose: 0 mls/hr Documented by: [id number] Admin: 06/18/21 00:12 Dose: 100 mls/hr Documented by: [id number] Infusion: 06/17/21 18:38 Dose: 0 mls/hr Documented by: [id number] Admin: 06/17/21 17:21 Dose: 100 mls/hr Documented by: [id number] Insulin Aspart (Insulin Aspart 100 Units/Ml 3 Ml Pen) 0 units SC ACHS [facility] Stop: 07/15/21 16:29 Last Admin: 06/18/21 12:20 Dose: 4 units Documented by: [id number] Cosigned by: [id number] Admin: 06/18/21 12:20 Dose: Not Given Documented by: [id number] Cosigned by: [id number] Admin: 06/17/21 20:07 Dose: 1 units Documented by: [id number] Cosigned by: [id number] Admin: 06/17/21 17:25 Dose: 5 units Documented by: [id number] Cosigned by: [id number] Admin: 06/17/21 12:21 Dose: 8 units Documented by: [id number] Cosigned by: [id number] Admin: 06/17/21 07:58 Dose: 4 units Documented by: [id number] Cosigned by: [id number] Admin: 06/16/21 19:37 Dose: Not Given Documented by: [id number] Admin: 06/16/21 19:25 Dose: Not Given Documented by: [id number] Admin: 06/16/21 12:04 Dose: 3 units Documented by: [id number] Cosigned by: [id number] Admin: 06/16/21 08:13 Dose: 5 units Documented by: [id number] Cosigned by: [id number] Admin: 06/15/21 20:55 Dose: 3 units Documented by: [id number] Cosigned by: [id number] Admin: 06/15/21 17:58 Dose: 6 units Documented by: [id number] Cosigned by: [id number] Insulin Glargine (Insulin Glargine Solostar 100 Units/Ml 3 Ml Pen) 8 units SC DAILY [facility] Stop: 07/16/21 10:44 Last Admin: 06/18/21 12:21 Dose: 8 units Documented by: [id number] Cosigned by: [id number] Admin: 06/17/21 10:48 Dose: 8 units Documented by: [id number] Cosigned by: [id number] Admin: 06/16/21 12:02 Dose: 8 units Documented by: [id number] Cosigned by: [id number] Metoprolol Succinate (Metoprolol Succ 50mg Ext Rel Tab) 50 mg PO QAM [facility] Stop: 07/13/21 08:59 Last Admin: 06/18/21 08:30 Dose: 50 mg Documented by: [id number] Admin: 06/17/21 11:32 Dose: Not Given Documented by: [id number] Admin: 06/16/21 08:11 Dose: 50 mg Documented by: [id number] Admin: 06/15/21 09:35 Dose: Not Given Documented by: [id number] Admin: 06/14/21 08:37 Dose: 50 mg Documented by: [id number] Admin: 06/13/21 08:10 Dose: 50 mg Documented by: [id number] Miscellaneous Information (Vancomycin Consult Active) 1 ea N/A UD PRN PRN Reason: Consult Stop: 07/09/21 17:40 Last Admin: 06/16/21 16:38 Dose: 1 ea Documented by: [id number] Multivitamins (Multivitamin Tab) 1 tab PO QAM [facility] Stop: 07/17/21 08:59 Last Admin: 06/18/21 08:31 Dose: 1 tab Documented by: [id number] Admin: 06/17/21 07:57 Dose: 1 tab Documented by: [id number] Oxycodone HCl (Oxycodone Hcl Ir 5 Mg Tab (Immediate Release)) 5 mg PO Q6 PRN PRN Reason: Pain Stop: 07/01/21 15:09 Last Admin: 06/18/21 08:29 Dose: 5 mg Documented by: [id number] Admin: 06/18/21 00:11 Dose: 5 mg Documented by: [id number] Pantoprazole Sodium (Pantoprazole 40 Mg Tab) 40 mg PO QAM [facility] Stop: 07/11/21 08:59 Last Admin: 06/18/21 08:31 Dose: 40 mg Documented by: [id number] Admin: 06/17/21 07:57 Dose: 40 mg Documented by: [id number] Admin: 06/16/21 08:11 Dose: 40 mg Documented by: [id number] Admin: 06/15/21 09:35 Dose: Not Given Documented by: [id number] Admin: 06/14/21 08:36 Dose: 40 mg Documented by: [id number] Admin: 06/13/21 08:10 Dose: 40 mg Documented by: [id number] Admin: 06/12/21 08:52 Dose: 40 mg Documented by: [id number] Admin: 06/11/21 08:00 Dose: 40 mg Documented by: [id number] Saccharomyces Boulardii (Saccharomyces Boulardii 250 Mg Cap) 250 mg PO DAILY [facility] Stop: 07/13/21 12:59 Last Admin: 06/18/21 08:30 Dose: 250 mg Documented by: [id number] Admin: 06/17/21 07:58 Dose: 250 mg Documented by: [id number] Admin: 06/16/21 08:11 Dose: 250 mg Documented by: [id number] Admin: 06/15/21 09:35 Dose: Not Given Documented by: [id number] Admin: 06/14/21 08:37 Dose: 250 mg Documented by: [id number] Admin: 06/13/21 14:28 Dose: 250 mg Documented by: [id number] Tamsulosin HCl (Tamsulosin Hcl 0.4 Mg Cap) 0.4 mg PO HS [facility] Stop: 07/12/21 20:59 Last Admin: 06/17/21 20:06 Dose: 0.4 mg Documented by: [id number] Admin: 06/16/21 19:39 Dose: 0.4 mg Documented by: [id number] Admin: 06/15/21 21:05 Dose: 0.4 mg Documented by: [id number] Admin: 06/14/21 21:23 Dose: 0.4 mg Documented by: [id number] Admin: 06/13/21 20:32 Dose: 0.4 mg Documented by: [id number] Admin: 06/12/21 21:38 Dose: 0.4 mg Documented by: [id number] Coding Level of Care Code 67432 [facility] Intl Hosp Care Lvl 2
--- NOTE | 2021-06-18 15:58 | Hospitalist Progress Note ---
Date of Service June 18, 2021 Assessment & Plan (1) Dry gangrene: Plan: left great toe and foot was nearly entirely black, foul odor, with surrounding cellulitis and nec fasciitis of dorsal foot up to ankle Wound culture growing MRSA and anaerobic GNR Prevotella as well as Anaerococcus prevotii MRI showed OM of great toe with suspected dorsal nec fasciitis, surrounding cellulitis Appreciate vascular surgery consultation-he does have flow to the foot despite the severe PAD and they do not recommend vascular surgical intervention at this time, however recommend orthopedic intervention -Consult orthopedic surgery-appreciate surgical management-initially Left great toe amputation and foot debridement on 06/15, then BKA 06/16 leukocytosis finally resolved, fever finally resolved after changing abx on 06/13 and now s/p left BKA with Ortho on 06/16 -Postoperative care as per orthopedic surgery-had dressing and drain removed today, new dressing placed, apparently wound looks good -Initially on vancomycin to cover for MRSA, cefepime for Gram negative, and Cl indamycin for antitoxin effect as well as for anaerobic coverage---> NARROW down to IV Vanco and Flagyl on 06/17 (dc Cefepime and clinda), but may only need a few more days since he had BKA -Follow blood cultures-no growth to date -Follow CBC, CMP -was having more pain on POD#1---> added on gabapentin 100mg po bid, oxycodone 5mg po q6h prn, continue IV Dilaudid for severe pain--> pain now much improved will need PT/OT and SNF placement -Psych consult for mood changes associated with recent BKA-consult appreciated, no meds added but supportive counseling given (2) Sepsis: Plan: Sepsis, POA-resolved as above (3) Fever: Plan: As above, secondary to left foot infection, now no fever since 06/13 if spikes again, repeat blood cultures (4) PAD (peripheral artery disease): Plan: severe stenosis of tibioperoneal trunk severe anterior, posterior tibial artery stenosis severe peroneal artery stenosis Does have flow likely collaterals to the left foot consult vascular surgery appreciated as above-no intervention at this time (5) Ischemic ulcer of toe of left foot: Plan: arterial doppler with left KEYLA of 0.57 suggesting severe disease plan for CT angiogram left leg - severe disease seen as noted above Continue dual antiplatelet therapy, statin (6) Fall: Plan: fell outside his home, his knees gave out, did not have strength to get up alone no syncope, he was conscious and remembers everything hold on PT/OT as don't want him putting weight on left foot for time being -Likely secondary to generalized weakness from infection (7) GI bleed: Plan: initially suspected, but Hb of 17 in the spring could have been false or hemoconcentration Hemoglobin upon admission 11.0, then 11.4, then 10.2, 9.1 and now down slightly to 8.8 s/p BKA BUN not going up,-does not suggest upper GI bleed Heme positive stools in the ED but he has NOT had any melena and reported no bleeding Have since resumed aspirin and Plavix due to severe PAD and dry gangrene Continue Protonix 40 mg PO daily (8) Symptomatic anemia: Plan: Hb of 11 should not have caused a fall, he had weakness in knees did not have syncope Hemoglobin 9.1 today as above Also with Hemoccult stool positive as above follow CBC (9) History of CVA with residual deficit: Plan: Status post right ICA stent, with multiple bilateral strokes Continue aspirin and Plavix (10) Internal carotid artery stent present: Plan: Continue aspirin and Plavix, statin (11) Elevated troponin I level: Plan: Elevated troponin I level/CAD/stented coronary artery- no chest pain, myocardial demand ischemia has known severe CAD and needs CABG but refuses (12) CAD (coronary artery disease), seminole coronary artery: Plan: had emergent stent in left main in 01/2021 sent for evaluation for CABG at [place] they recommended CABG but the patient was very nervous, scared due to open heart procedure he has not followed up further, not interested in getting CABG thus medical management will be best we can do Continue aspirin, Plavix, statin, metoprolol (13) Stented coronary artery: Plan: See above (14) Diabetes mellitus: Plan: Hold Metformin while inpatient and receiving IV dye Placed on Accu-Cheks before meals and at bedtime/every 6 hours with NovoLog coverage per scale hemoglobin A1c with much improved control down 7.4 from 11.4 in January monitor for hypoglycemia, no episodes he has lost 40 lbs intentionally by eating well, strict low carb diet and started on Metformin after his hospitalization for stroke and SC in 01/2021 (15) Hyperlipidemia LDL goal <70: Plan: Continue atorvastatin (16) Ischemic cardiomyopathy: Plan: With moderately reduced LV function continue metoprolol at lower dose than home dose (100mg bid) and titrate back up as able to-increase today up to 50mg bid Add his GABRIEL inhibitor back on tomorrow at lower dose of 5mg daily Needs revascularization but is declining to have CABG (17) Elevated transaminase level: Plan: Total bilirubin mildly elevated, AST, ALT, and alkaline phosphatase all elevated but now significantly improved after discontinuing Zosyn May have been secondary to Zosyn Alk phos up higher from bony involvement of foot with infection-also now improving Liver ultrasound -shows 2 larger hemangiomas, and mildly thickened gallbladder but it was contracted this patient was not fasting He has no abdominal pain, suspect could be secondary to ongoing infection or side effect of antibiotics Follow LFTs in the morning (18) Diarrhea: Plan: In the setting of IV antibiotics-ongoing but improving Check C. difficile-negative -added Florastor -Added cholestyramine (19) Urinary retention: Plan: Requiring straight cath x2 on 06/12 and again on 06/15 Has a history of nocturia prior to admission Added Flomax on 06/12 Place Allen catheter on 06/15 as has required persistent straight catheterization Will need a trial of void prior to discharge (20) Anemia: Plan: As above, hemoglobin 8.8, some blood loss anemia, some chronic disease, blood draws Follow CBC (21) Paroxysmal atrial fibrillation: Plan: had Afib x 4 hours on AM of 06/12 and also on 06/09 Continue to monitor on telemetry He is not a good candidate for anticoagulation at this time given Hemoccult positive stool and declining hemoglobin It was short-lived continue metoprolol and increasing dose to 50mg bid (22) Hyponatremia: Plan: Na+ 128 today, unclear why. Making urine, drinking Perhaps SIADH from pain? Ur Na+ and Ur Osm ordered -follow BMP in [place] mentating at baseline not volume overloaded (23) Ventricular tachycardia: Plan: had 14 beat run of VT overnight 06/17 increase metorolol to 50 bid does have low EF, high risk for VT consider ICD if not having CABG will need f/u with Cardiology after discharge continue tele monitoring (24) DVT prophylaxis: Plan: SCDs only given Hemoccult positive stool Disposition -continued stay in PCU, eventually to SNF at [facility] when ok from Ortho standpoint-hopefully in next 2-3 days Changed CODE STATUS to DNR/DNI, patient filled out advanced directives Admission and Anticipated Discharge Date Admission Date: June 09, 2021 Subjective Pt only took one oxycodone this AM and none since then, reports pain in left BKA stump is improved, only some pain with movement. Is eating and drinking. Had 2 loose BMs today and abd feels better. No CP or SOB. Is more relaxed today and also talked to Psychiatry Tele with NSR rates 60-70s, had a 14 beat run of VT at 3:45 AM while sleeping Review of Systems Review of Systems: All systems reviewed & are unremarkable except as noted in HPI & below Physical Exam Constitutional: WD/WN, vitals as above Eyes: + anicteric sclerae Neck: trachea midline, no thyromegaly Respiratory: normal respiratory effort Auscultation: + bronchial breath sounds (at bases); no crackles and no wheezes Cardiovascular: RRR, no murmur, no edema Chest (Breasts): Chest: normal inspection of chest Gastrointestinal (Abdomen): normal bowel sounds, soft, nontender, no hepatosplenomegaly Musculoskeletal: Extremities: + extremities abnormal to inspection (Left lower extremity with large Gabriel wrap and BKA), no cyanosis and no clubbing Skin: no rashes, warm and dry Neurologic: moves all extremities and awake; no focal motor deficits Cranial Nerves: + abnormal facial strength (mild left facial droop-chronic) Psychiatric: Orientation: alert, oriented to person, oriented to place and cooperative Lymphatic: no lymphedema Results & Data Results & Data ([facility]) Vital Signs (Past 12 Hours) Vital Signs Temp Pulse Resp BP Pulse Ox 06/18/21 11:30 36.8 C 75 18 149/82 H 06/18/21 08:00 36.5 C 69 16 153/92 H 93 06/18/21 04:00 37.0 C 71 18 142/81 H 98 Laboratory Results 06/18/21 06/18/21 06/18/21 Range/Units 16:24 11:19 07:25 WBC (4.8-10.8) K/uL RBC (4.7-6.1) M/uL Hgb (14.0-18.0) g/dL Hct (42-52) % MCV (80-100) fL MCH (25-34) pg MCHC (32-36) g/dL RDW Std Deviation (36.4-46.3) fL RDW Coeff of Vel (11.5-14.5) % Plt Count (130-400) K/uL MPV (7.4-10.4) fL Immature Gran % (Auto) % Neut % (Auto) % Lymph % (Auto) % [place] % (Auto) % Eos % (Auto) % Baso % (Auto) % Neut # (Auto) (1.4-6.5) K/uL Lymph # (Auto) (1.2-3.4) K/uL [place] # (Auto) (0.11-0.59) K/uL Eos # (Auto) (0-0.5) K/uL Baso # (Auto) (0-0.2) K/uL Immature Gran # (Auto) (0.00-0.02) K/uL Sodium (136-145) mmol/L Potassium (3.5-5.1) mmol/L Chloride (98-107) mmol/L Carbon Dioxide (21-32) mmol/L Anion Gap (3-11) BUN (7-18) mg/dl Creatinine (0.6-1.4) mg/dl Est Cr Clr Drug Dosing ml/min Est GFR ( Amer) ml/min Est GFR (Non-Af Amer) ml/min BUN/Creatinine Ratio (10-20) Glucose (70-99) mg/dl POC Glucose 244 H 148 H 131 H (70-99) mg/dl Calcium (8.5-10.1) mg/dl Phosphorus (2.5-4.9) mg/dl Magnesium (1.8-2.4) mg/dl Total Bilirubin (0.2-1) mg/dl AST (15-37) U/L ALT (12-78) U/L Alkaline Phosphatase (45-117) U/L Total Protein (6.4-8.2) gm/dl Albumin (3.4-5.0) gm/dl Globulin (2.5-4.0) gm/dl Albumin/Globulin Ratio (0.9-2) 07/18/21 07/18/21 07/17/21 Range/Units 04:41 04:41 20:02 WBC 9.67 (4.8-10.8) K/uL RBC 2.98 L (4.7-6.1) M/uL Hgb 8.8 L (14.0-18.0) g/dL Hct 25.6 L (42-52) % MCV 85.9 (80-100) fL MCH 29.5 (25-34) pg MCHC 34.4 (32-36) g/dL RDW Std Deviation 44.2 (36.4-46.3) fL RDW Coeff of Vel 14.2 (11.5-14.5) % Plt Count 436 H (130-400) K/uL MPV 8.2 (7.4-10.4) fL Immature Gran % (Auto) 1.0 % Neut % (Auto) 74.9 % Lymph % (Auto) 11.5 % [place] % (Auto) 9.7 % Eos % (Auto) 2.8 % Baso % (Auto) 0.1 % Neut # (Auto) 7.24 H (1.4-6.5) K/uL Lymph # (Auto) 1.11 L (1.2-3.4) K/uL [place] # (Auto) 0.94 H (0.11-0.59) K/uL Eos # (Auto) 0.27 (0-0.5) K/uL Baso # (Auto) 0.01 (0-0.2) K/uL Immature Gran # (Auto) 0.10 H (0.00-0.02) K/uL Sodium 128 L D (136-145) mmol/L Potassium 3.4 L (3.5-5.1) mmol/L Chloride 99 (98-107) mmol/L Carbon Dioxide 25 (21-32) mmol/L Anion Gap 4.0 (3-11) BUN 11 (7-18) mg/dl Creatinine 0.53 L (0.6-1.4) mg/dl Est Cr Clr Drug Dosing 145.3 ml/min Est GFR ( Amer) 125.1 ml/min Est GFR (Non-Af Amer) 108.0 ml/min BUN/Creatinine Ratio 21.5 H (10-20) Glucose 127 H (70-99) mg/dl POC Glucose 164 H (70-99) mg/dl Calcium 7.4 L (8.5-10.1) mg/dl Phosphorus 1.9 L (2.5-4.9) mg/dl Magnesium 1.9 (1.8-2.4) mg/dl Total Bilirubin 0.8 (0.2-1) mg/dl AST 33 (15-37) U/L ALT 53 (12-78) U/L Alkaline Phosphatase 357 H (45-117) U/L Total Protein 5.3 L (6.4-8.2) gm/dl Albumin 1.6 L (3.4-5.0) gm/dl Globulin 3.7 (2.5-4.0) gm/dl Albumin/Globulin Ratio 0.4 L (0.9-2) PG Care Time/CCT Total # of Minutes Spent Total Time Spent with Patient: Total time spent is greater than 50% in coordination of care (as documented) at patient's floor/unit and/or counseling patient: Coding Level of Care Code 16315 Subseq Hosp Care Lvl 3 Diagnoses Dry gangrene I96 Sepsis A41.9 Fever R50.9 PAD (peripheral artery disease) I73.9 Ischemic ulcer of toe of left foot L97.529 Fall W19.XXXA GI bleed K92.2 GI bleed type/associated pathology: unspecified gastrointestinal hemorrhage type Symptomatic anemia D64.9 History of CVA with residual deficit I69.30 Internal carotid artery stent present Z95.828 Elevated troponin I level R77.8 CAD (coronary artery disease), seminole coronary artery I25.10 Stented coronary artery Z95.5 Diabetes mellitus E13.69 Diabetes mellitus complication status: with other specified complication Diabetes mellitus director long term care insulin use: unspecified director long term care insulin use status Diabetes mellitus type: other specified (including RODRI) Hyperlipidemia LDL goal <70 E78.5 Ischemic cardiomyopathy I25.5 Elevated transaminase level R74.01 Diarrhea R19.7 Urinary retention R33.9 Anemia D64.9 Paroxysmal atrial fibrillation I48.0 DVT prophylaxis Z29.9 Hyponatremia E87.1 Ventricular tachycardia I47.2 (1) Diabetes mellitus Diabetes mellitus complication status: with other specified complication Diabetes mellitus director long term care insulin use: unspecified fpc insulin use status Diabetes mellitus type: other specified (including RODRI) Qualified Code(s): E13.69 - Other specified diabetes mellitus with other specified complication (2) GI bleed GI bleed type/associated pathology: unspecified gastrointestinal hemorrhage type Qualified Code(s): K92.2 - Gastrointestinal hemorrhage, unspecified
[2021-06-18] MEDS: ATORVASTATIN 40 MG TAB PO SCH (21:17)
[2021-06-18] MEDS: TAMSULOSIN HCL 0.4 MG CAP PO SCH (21:18)
[2021-06-18] MEDS: HYDROmorphone INJ 0.5 MG/0.5 ML SYR IV PRN (21:32)
[2021-06-19] MEDS: oxyCODONE HCL IR 5 MG TAB (IMMEDIATE RELEASE) PO PRN ×3 (01:18→17:26)
[2021-06-19] MEDS: metroNIDAZOLE 500 MG/100 ML BAG IV SCH ×4 (01:19→22:11)
[2021-06-19] MEDS ORDERED: VANCOMYCIN TROUGH ONE (07:30)
[2021-06-19 07:43] LABS: Basophils # (auto) 0.01 K/uL (0-0.2); Basophils % (auto) 0.1 %; Eosinophils # (auto) 0.31 K/uL (0-0.5); Eosinophils % (auto) 4.1 %; Hematocrit (blood only) 27.1 % (42-52); Hemoglobin 9.1 g/dL (14.0-18.0); Immature Granulocytes % (auto) 1.3 %; Lymphocytes % (auto) 10.5 %; Mean Corpuscular Hemoglobin 29.3 pg (25-34); Mean Corpuscular Hgb Conc 33.6 g/dL (32-36); Mean Corpuscular Volume 87.1 fL (80-100); Mean Platelet Volume 8.2 fL (7.4-10.4); Monocytes # (auto) 0.91 K/uL (0.11-0.59); Monocytes % (auto) 11.9 %; Neutrophils # (auto) 5.49 K/uL (1.4-6.5); Neutrophils % (auto) 72.1 %; Platelet Count 498 K/uL (130-400); RDW Coefficient of Variation 14.4 % (11.5-14.5); RDW Standard Deviation 45.5 fL (36.4-46.3); Red Blood Count 3.11 M/uL (4.7-6.1); White Blood Count 7.62 K/uL (4.8-10.8)
[2021-06-19] MEDS: CLOPIDOGREL BISULFATE 75 MG TAB PO SCH (08:03)
[2021-06-19] MEDS: GABAPENTIN 100 MG CAP PO SCH ×2 (08:03→19:33)
[2021-06-19] MEDS: METOPROLOL SUCC 50MG EXT REL TAB PO SCH ×2 (08:03→19:33)
[2021-06-19] MEDS: ASPIRIN 81 MG ECTAB PO SCH (08:03)
[2021-06-19] MEDS: MULTIVITAMIN TAB PO SCH (08:03)
[2021-06-19] MEDS: SACCHAROMYCES BOULARDII 250 MG CAP PO SCH (08:03)
[2021-06-19] MEDS: PANTOprazole 40 MG TAB PO SCH (08:03)
[2021-06-19] MEDS: lisinopril 5 MG TAB PO SCH (08:04)
[2021-06-19 08:17] LABS: Albumin Level 1.7 gm/dl (3.4-5.0); BUN Creatinine Ratio 19.5 (10-20); Calcium 7.7 mg/dl (8.5-10.1); Creatinine Clr Calc Pharmacy 135.9 ml/min; Est GFR (African American) 121.4 ml/min; Est GFR (Non-African American) 104.8 ml/min; Potassium 3.6 mmol/L (3.5-5.1)
[2021-06-19 08:19] LABS: Albumin Globulin Ratio 0.5 (0.9-2); Bilirubin,Total 0.8 mg/dl (0.2-1); Globulin 3.7 gm/dl (2.5-4.0); Phosphorus 2.1 mg/dl (2.5-4.9); Total Protein 5.4 gm/dl (6.4-8.2)
[2021-06-19] MEDS: VANCOMYCIN HCL 1,250 MG in SODIUM CHLORIDE 0.9% 250 ML IV SCH (08:54)
[2021-06-19] MEDS: INSULIN ASPART 100 UNITS/ML 3 ML PEN SC SCH ×4 (09:40→19:41)
[2021-06-19] MEDS ORDERED: POTASSIUM PHOS 3 MMOL/1 ML INFUSION IV STA (09:44)
--- NOTE | 2021-06-19 09:55 | Hospitalist Progress Note ---
Date of Service June 19, 2021 Assessment & Plan (1) Dry gangrene: Plan: left great toe and foot was nearly entirely black, foul odor, with surrounding cellulitis and nec fasciitis of dorsal foot up to ankle Wound culture growing MRSA and anaerobic GNR Prevotella as well as Anaerococcus prevotii MRI showed OM of great toe with suspected dorsal nec fasciitis, surrounding cellulitis Appreciate vascular surgery consultation-he does have flow to the foot despite the severe PAD and they do not recommend vascular surgical intervention at this time, however recommend orthopedic intervention -Consult orthopedic surgery-appreciate surgical management-initially Left great toe amputation and foot debridement on 06/15, then BKA 06/16 leukocytosis finally resolved, fever finally resolved after changing abx on 06/13 and now s/p left BKA with Ortho on 06/16 -Postoperative care as per orthopedic surgery-had dressing and drain removed 06/18, new dressing placed, apparently wound looks good -Initially on vancomycin to cover for MRSA, cefepime for Gram negative, and Cli ndamycin for antitoxin effect as well as for anaerobic coverage---> NARROW down to IV Vanco and Flagyl on 06/17 (dc Cefepime and clinda), but may only need a few more days since he had BKA stop Vancomycin today continue flagyl until discharge -Follow blood cultures-no growth to date -Follow CBC, CMP -post op pain, phantom limb pain, increase gabapentin to 200mg BID, oxycodone 5mg po q6h prn, continue IV Dilaudid for severe pain--> pain now much improved will need PT/OT and SNF placement -Psych consult for mood changes associated with recent BKA-consult appreciated, no meds added but supportive counseling given (2) Sepsis: Plan: Sepsis, POA-resolved as above vitals stable, no growth on blood cultures stop Vanco, give Flagyl until d/c (3) Fever: Plan: As above, secondary to left foot infection, now no fever since 06/13 (4) PAD (peripheral artery disease): Plan: severe stenosis of tibioperoneal trunk severe anterior, posterior tibial artery stenosis severe peroneal artery stenosis Does have flow likely collaterals to the left foot consult vascular surgery appreciated as above-no intervention at this time (5) Ischemic ulcer of toe of left foot: Plan: arterial doppler with left KEYLA of 0.57 suggesting severe disease plan for CT angiogram left leg - severe disease seen as noted above Continue dual antiplatelet therapy, statin (6) Fall: Plan: fell outside his home, his knees gave out, did not have strength to get up alone no syncope, he was conscious and remembers everything hold on PT/OT as don't want him putting weight on left foot for time being -Likely secondary to generalized weakness from infection (7) GI bleed: Plan: initially suspected, but Hb of 17 in the spring could have been false or hemoconcentration Hemoglobin upon admission 11.0, then 11.4, then 10.2, 9.1 and now down slightly to 8.8 s/p BKA BUN not going up,-does not suggest upper GI bleed Heme positive stools in the ED but he has NOT had any melena and reported no bleeding Have since resumed aspirin and Plavix due to severe PAD and dry gangrene Continue Protonix 40 mg PO daily (8) Symptomatic anemia: Plan: Hb of 11 should not have caused a fall, he had weakness in knees did not have syncope Hemoglobin 9.1 today as above Also with Hemoccult stool positive as above follow CBC (9) History of CVA with residual deficit: Plan: Status post right ICA stent, with multiple bilateral strokes Continue aspirin and Plavix (10) Internal carotid artery stent present: Plan: Continue aspirin and Plavix, statin (11) Elevated troponin I level: Plan: Elevated troponin I level/CAD/stented coronary artery- no chest pain, myocardial demand ischemia has known severe CAD and needs CABG but refuses (12) CAD (coronary artery disease), apache coronary artery: Plan: had emergent stent in left main in 01/2021 sent for evaluation for CABG at [place] they recommended CABG but the patient was very nervous, scared due to open heart procedure he has not followed up further, not interested in getting CABG thus medical management will be best we can do Continue aspirin, Plavix, statin, metoprolol (13) Stented coronary artery: Plan: See above (14) Diabetes mellitus: Plan: Hold Metformin while inpatient and receiving IV dye Placed on Accu-Cheks before meals and at bedtime/every 6 hours with NovoLog coverage per scale hemoglobin A1c with much improved control down 7.4 from 11.4 in January monitor for hypoglycemia, no episodes he has lost 40 lbs intentionally by eating well, strict low carb diet and started on Metformin after his hospitalization for stroke and [place] in 01/2021 (15) Hyperlipidemia LDL goal <70: Plan: Continue atorvastatin (16) Ischemic cardiomyopathy: Plan: With moderately reduced LV function continue metoprolol at lower dose than home dose (100mg bid) and titrate back up as able to-increase today up to 50mg bid Add his SURYA inhibitor back on tomorrow at lower dose of 5mg daily Needs revascularization but is declining to have CABG (17) Elevated transaminase level: Plan: Total bilirubin mildly elevated, AST, ALT, and alkaline phosphatase all elevated but now significantly improved after discontinuing Zosyn May have been secondary to Zosyn Alk phos up higher from bony involvement of foot with infection-also now improving Liver ultrasound -shows 2 larger hemangiomas, and mildly thickened gallbladder but it was contracted this patient was not fasting He has no abdominal pain (18) Diarrhea: Plan: In the setting of IV antibiotics-ongoing but improving Check C. difficile-negative -added Florastor -Added cholestyramine (19) Urinary retention: Plan: Requiring straight cath x2 on 06/12 and again on 06/15 Has a history of nocturia prior to admission Added Flomax on 06/12 Place Allen catheter on 06/15 as has required persistent straight catheterization Will need a trial of void prior to discharge, consider trying tomorrow (20) Anemia: Plan: As above, hemoglobin 9.1, some blood loss anemia, some chronic disease, blood draws Follow CBC (21) Paroxysmal atrial fibrillation: Plan: had Afib x 4 hours on AM of 06/12 and also on 06/09 Continue to monitor on telemetry He is not a good candidate for anticoagulation at this time given Hemoccult positive stool and declining hemoglobin It was short-lived continue metoprolol and increasing dose to 50mg bid (22) Hyponatremia: Plan: Na+ 130 today, unclear why. Making urine, drinking Perhaps SIADH from pain? Ur Na+ and Ur Osm ordered - Na 33 and osm 267, not concentrating urine, doubt SIADH -follow BMP in [place] mentating at baseline not volume overloaded (23) Ventricular tachycardia: Plan: had 14 beat run of VT overnight 06/17 increase metorolol to 50 bid does have low EF, high risk for VT consider ICD if not having CABG will need f/u with Cardiology after discharge continue tele monitoring (24) DVT prophylaxis: Plan: SCDs only given Hemoccult positive stool Disposition -continued stay in PCU, eventually to SNF at [facility] when ok from Ortho standpoint-hopefully by Wed Changed CODE STATUS to DNR/DNI, patient filled out advanced directives Admission and Anticipated Discharge Date Admission Date: June 09, 2021 Subjective patient doing reasonably well, admits to some phantom pain in left limb no fever, no chills, no chest pain, no dyspnea, no cough he is eating well, most meals reviewed chart from the past week d/w pharmacy, will stop Vanco, continue Flagyl for time being working towards SNF mid week Review of Systems Review of Systems: All systems reviewed & are unremarkable except as noted in Subjective Physical Exam Constitutional: well developed, well nourished and + disheveled; no acute distress Neck: trachea midline, no thyromegaly Respiratory: normal respiratory effort, lungs clear to auscultation Cardiovascular: Rate/Rhythm: regular rate and regular rhythm Heart Sounds: normal S1 and normal S2; no murmur Vessels: no JVD and + abnormal peripheral pulses (diminished PT and DP pulses right foot) Extremities: + abnormal capillary refill (delayed in feet) and no edema Gastrointestinal (Abdomen): normal bowel sounds, soft, nontender, no hepatosplenomegaly Musculoskeletal: Head/Neck/Chest: normocephalic, head atraumatic and neck supple Extremities: strength 5/5 throughout and + amputation noted (left BKA) Skin: + dry skin Neurologic: patellar DTR's 2+ bilat, sensation intact and PERRL, EOMI, accommodation nl, no face palsy, no dysarthria Psychiatric: Orientation: alert and oriented x 3 Affect: + flat affect Results & Data Results & Data ([facility]) Vital Signs (Past 12 Hours) Vital Signs Temp Pulse Resp BP Pulse Ox 06/19/21 07:25 37.1 C 68 18 136/72 99 06/19/21 04:07 36.9 C 65 18 142/76 H 99 06/18/21 23:39 37.0 C 68 19 136/76 98 Laboratory Results Laboratory Results - last 24 hr 06/18/21 06/18/21 06/18/21 11:19 16:24 20:23 WBC RBC Hgb Hct MCV MCH MCHC RDW Std Deviation RDW Coeff of Vel Plt Count MPV Immature Gran % (Auto) Neut % (Auto) Lymph % (Auto) [place] % (Auto) Eos % (Auto) Baso % (Auto) Neut # (Auto) Lymph # (Auto) [place] # (Auto) Eos # (Auto) Baso # (Auto) Immature Gran # (Auto) Sodium Potassium Chloride Carbon Dioxide Anion Gap BUN Creatinine Est Cr Clr Drug Dosing Est GFR ( Amer) Est GFR (Non-Af Amer) BUN/Creatinine Ratio Glucose POC Glucose 148 H 244 H 162 H Calcium Phosphorus Magnesium Total Bilirubin AST ALT Alkaline Phosphatase Total Protein Albumin Globulin Albumin/Globulin Ratio Vancomycin Trough 06/19/21 06/19/21 06/19/21 07:25 07:28 07:28 WBC RBC Hgb Hct MCV MCH MCHC RDW Std Deviation RDW Coeff of Vel Plt Count MPV Immature Gran % (Auto) Neut % (Auto) Lymph % (Auto) [place] % (Auto) Eos % (Auto) Baso % (Auto) Neut # (Auto) Lymph # (Auto) [place] # (Auto) Eos # (Auto) Baso # (Auto) Immature Gran # (Auto) Sodium 130 L Potassium 3.6 Chloride 100 Carbon Dioxide 24 Anion Gap 6.0 BUN 11 Creatinine 0.57 L Est Cr Clr Drug Dosing 135.9 Est GFR ( Amer) 121.4 Est GFR (Non-Af Amer) 104.8 BUN/Creatinine Ratio 19.5 Glucose 115 H POC Glucose 111 H Calcium 7.7 L Phosphorus 2.1 L Magnesium 2.0 Total Bilirubin 0.8 AST 37 ALT 50 Alkaline Phosphatase 323 H Total Protein 5.4 L Albumin 1.7 L Globulin 3.7 Albumin/Globulin Ratio 0.5 L Vancomycin Trough 19.7 06/19/21 07:28 WBC 7.62 RBC 3.11 L Hgb 9.1 L Hct 27.1 L MCV 87.1 MCH 29.3 MCHC 33.6 RDW Std Deviation 45.5 RDW Coeff of Vel 14.4 Plt Count 498 H MPV 8.2 Immature Gran % (Auto) 1.3 Neut % (Auto) 72.1 Lymph % (Auto) 10.5 [place] % (Auto) 11.9 Eos % (Auto) 4.1 Baso % (Auto) 0.1 Neut # (Auto) 5.49 Lymph # (Auto) 0.80 L [place] # (Auto) 0.91 H Eos # (Auto) 0.31 Baso # (Auto) 0.01 Immature Gran # (Auto) 0.10 H Sodium Potassium Chloride Carbon Dioxide Anion Gap BUN Creatinine Est Cr Clr Drug Dosing Est GFR ( Amer) Est GFR (Non-Af Amer) BUN/Creatinine Ratio Glucose POC Glucose Calcium Phosphorus Magnesium Total Bilirubin AST ALT Alkaline Phosphatase Total Protein Albumin Globulin Albumin/Globulin Ratio Vancomycin Trough Medications Administered Current Inpatient Medications Acetaminophen (Acetaminophen 325 Mg Tab) 650 mg PO Q4H PRN PRN Reason: pain or fever Stop: 07/10/21 20:47 Last Admin: 06/17/21 13:41 Dose: 650 mg Documented by: Aspirin (Aspirin 81 Mg Ectab) 81 mg PO QAM [facility] Stop: 07/10/21 16:29 Last Admin: 06/19/21 08:03 Dose: 81 mg Documented by: Atorvastatin Calcium (Atorvastatin 40 Mg Tab) 80 mg PO HS [facility] Stop: 07/10/21 20:59 Last Admin: 06/18/21 21:17 Dose: 80 mg Documented by: Cholestyramine Resin (Cholestyramine Light 4 Gm Pkt) 4 gm PO BID@1000,2200 [facility] Stop: 07/15/21 21:59 Last Admin: 06/18/21 21:17 Dose: 4 gm Documented by: Clopidogrel Bisulfate (Clopidogrel Bisulfate 75 Mg Tab) 75 mg PO QAM [facility] Stop: 07/10/21 16:29 Last Admin: 06/19/21 08:03 Dose: 75 mg Documented by: Dextrose (Dextrose 50% 50 Ml Syringe) 25 - 50 ml IV UD PRN; Protocol PRN Reason: Hypoglycemia Protocol Stop: 07/09/21 17:05 Gabapentin (Gabapentin 100 Mg Cap) 100 mg PO BID [facility] Stop: 07/17/21 15:44 Last Admin: 06/19/21 08:03 Dose: 100 mg Documented by: Glucagon (Glucagon For Inj 1 Mg Vial) 1 mg SQ UD PRN; Protocol PRN Reason: Hypoglycemia Protocol Stop: 07/09/21 17:05 Glucose (Glucose 10 Tabs/Tube) 4 - 8 tabs PO UD PRN; Protocol PRN Reason: Hypoglycemia Protocol Stop: 07/09/21 17:05 Glucose (Glucose 40% Gel 15 Gm Tube) 15 - 30 gm PO UD PRN; Protocol PRN Reason: Hypoglycemia Protocol Stop: 07/09/21 17:05 Hydromorphone HCl (Hydromorphone Inj 0.5 Mg/0.5 Ml Syr) 0.5 mg IV Q4H PRN PRN Reason: Pain or Pre PT Stop: 06/30/21 19:34 Last Admin: 06/18/21 21:32 Dose: 0.5 mg Documented by: Vancomycin HCl 1,250 mg/ (Sodium Chloride) 275 mls @ 200 mls/hr IV Q12H [facility]; Protocol Stop: 06/20/21 23:59 Last Admin: 06/19/21 08:54 Dose: 200 mls/hr Documented by: Metronidazole (Flagyl) 500 mg in 100 mls @ 100 mls/hr IV Q8H [facility]; Protocol Stop: 06/24/21 15:59 Last Admin: 06/19/21 08:54 Dose: 100 mls/hr Documented by: Insulin Aspart (Insulin Aspart 100 Units/Ml 3 Ml Pen) 0 units SC ACHS [facility] Stop: 07/15/21 16:29 Last Admin: 06/19/21 09:40 Dose: 8 units Documented by: Insulin Glargine (Insulin Glargine Solostar 100 Units/Ml 3 Ml Pen) 8 units SC DAILY [facility] Stop: 07/16/21 10:44 Last Admin: 06/18/21 12:21 Dose: 8 units Documented by: Lisinopril (Lisinopril 5 Mg Tab) 5 mg PO QAM [facility] Stop: 07/19/21 08:59 Last Admin: 06/19/21 08:04 Dose: 5 mg Documented by: Magnesium Hydroxide (Magnesium Hydroxide Susp 30 Ml Udc) 30 ml PO Q6H PRN PRN Reason: Constipation Stop: 07/16/21 19:34 Metoprolol Succinate (Metoprolol Succ 50mg Ext Rel Tab) 50 mg PO BID [facility] Stop: 07/18/21 20:59 Last Admin: 06/19/21 08:03 Dose: 50 mg Documented by: Miscellaneous (Carbohydrates For Hypoglycemia ) 15 - 30 gm PO UD PRN PRN Reason: Hypoglycemia Protocol Stop: 07/09/21 17:05 Miscellaneous Information (Vancomycin Consult Active) 1 ea N/A UD PRN PRN Reason: Consult Stop: 07/09/21 17:40 Last Admin: 06/16/21 16:38 Dose: 1 ea Documented by: Multivitamins (Multivitamin Tab) 1 tab PO QAM [facility] Stop: 07/17/21 08:59 Last Admin: 06/19/21 08:03 Dose: 1 tab Documented by: Naloxone HCl (Naloxone Hcl 0.4 Mg/1 Ml Vial/Carp) 0.1 mg IV Q5M PRN PRN Reason: Oversedation/Resp Depression Stop: 07/16/21 19:34 Ondansetron HCl (Ondansetron Inj 2 Mg/Ml 2 Ml Vial) 4 mg IV Q6H PRN PRN Reason: Nausea And Vomiting Stop: 07/16/21 19:34 Oxycodone HCl (Oxycodone Hcl Ir 5 Mg Tab (Immediate Release)) 5 mg PO Q6 PRN PRN Reason: Pain Stop: 07/01/21 15:09 Last Admin: 06/19/21 08:02 Dose: 5 mg Documented by: Pantoprazole Sodium (Pantoprazole 40 Mg Tab) 40 mg PO QAM [facility] Stop: 07/11/21 08:59 Last Admin: 06/19/21 08:03 Dose: 40 mg Documented by: Potassium Phosphate (Potassium Phos 3 Mmol/1 Ml Infusion) 21 mmol IV NOW STA Stop: 06/19/21 09:45 Saccharomyces Boulardii (Saccharomyces Boulardii 250 Mg Cap) 250 mg PO DAILY [facility] Stop: 07/13/21 12:59 Last Admin: 06/19/21 08:03 Dose: 250 mg Documented by: Tamsulosin HCl (Tamsulosin Hcl 0.4 Mg Cap) 0.4 mg PO HS [facility] Stop: 07/12/21 20:59 Last Admin: 06/18/21 21:18 Dose: 0.4 mg Documented by: PG Care Time/CCT Total # of Minutes Spent Total Time Spent with Patient: Total time spent is greater than 50% in coordination of care (as documented) at patient's floor/unit and/or counseling patient: Coding Level of Care Code 22893 Subseq Hosp Care Lvl 3 Diagnoses Dry gangrene I96 Sepsis A41.9 Fever R50.9 PAD (peripheral artery disease) I73.9 Ischemic ulcer of toe of left foot L97.529 Fall W19.XXXA GI bleed K92.2 GI bleed type/associated pathology: unspecified gastrointestinal hemorrhage type Symptomatic anemia D64.9 History of CVA with residual deficit I69.30 Internal carotid artery stent present Z95.828 Elevated troponin I level R77.8 CAD (coronary artery disease), [place] coronary artery I25.10 Stented coronary artery Z95.5 Diabetes mellitus E13.69 Diabetes mellitus complication status: with other specified complication Diabetes mellitus alf insulin use: unspecified long term care social worker insulin use status Diabetes mellitus type: other specified (including RODRI) Hyperlipidemia LDL goal <70 E78.5 Ischemic cardiomyopathy I25.5 Elevated transaminase level R74.01 Diarrhea R19.7 Urinary retention R33.9 Anemia D64.9 Paroxysmal atrial fibrillation I48.0 Hyponatremia E87.1 Ventricular tachycardia I47.2 DVT prophylaxis Z29.9 (1) Diabetes mellitus Diabetes mellitus complication status: with other specified complication Diabetes mellitus alf insulin use: unspecified alf insulin use status Diabetes mellitus type: other specified (including RODRI) Qualified Code(s): E13.69 - Other specified diabetes mellitus with other specified complication (2) GI bleed GI bleed type/associated pathology: unspecified gastrointestinal hemorrhage type Qualified Code(s): K92.2 - Gastrointestinal hemorrhage, unspecified
[2021-06-19] MEDS ORDERED: POTASSIUM PHOSPHATE 21 MMOL in SODIUM CHLORIDE 0.9% 500 ML IV STA (09:59)
[2021-06-19] MEDS: CHOLESTYRAMINE LIGHT 4 GM PKT PO SCH ×2 (10:22→19:32)
[2021-06-19] MEDS: INSULIN GLARGINE SOLOSTAR 100 UNITS/ML 3 ML PEN SC SCH (10:44)
--- NOTE | 2021-06-19 17:56 | Orthopedic Progress Note ---
Date of Service June 19, 2021 Assessment & Plan (1) Gangrene of left foot: Plan: pod #3 s/p Left Below Knee Amputation Daily dressing changes with Adaptic cut to the size of the flap, gauze, ABD, gauze wrap, Gabriel bandage NWB as per medicine Ortho to sign off at this time. Follow-up with Dr. English's clinic in 2 weeks postop. Admission and Anticipated Discharge Date Admission Date: June 09, 2021 Subjective Left lower leg is doing well. States there is some pain with movement of his knee. No other complaints. Review of Systems Constitutional: denies fever/chills Cardiovascular: Additional Comments: denies CP/SOB Gastrointestinal: denies nausea or vomiting Physical Exam Constitutional: no acute distress Musculoskeletal: Knee: + surgical incision (Dressing C/D/I left BKA site.); no surgical drain present Results & Data ([facility]) Vital Signs (Past 12 Hours) Vital Signs Temp Pulse Resp BP Pulse Ox 06/19/21 15:32 36.7 C 71 19 137/82 98 06/19/21 11:30 36.6 C 65 18 133/72 98 06/19/21 07:25 37.1 C 68 18 136/72 99
[2021-06-19] MEDS: ATORVASTATIN 40 MG TAB PO SCH (19:31)
[2021-06-19] MEDS: TAMSULOSIN HCL 0.4 MG CAP PO SCH (19:34)
[2021-06-19] MEDS: HYDROmorphone INJ 0.5 MG/0.5 ML SYR IV PRN (19:38)
[2021-06-19] MEDS ORDERED: GABAPENTIN 100 MG CAP PO STA (20:51)
[2021-06-20] MEDS: INSULIN ASPART 100 UNITS/ML 3 ML PEN SC SCH ×4 (05:30→19:24)
[2021-06-20 07:06] LABS: Creatinine Clr Calc Pharmacy 161.5 ml/min; Est GFR (African American) 130.3 ml/min; Est GFR (Non-African American) 112.4 ml/min
[2021-06-20] MEDS: oxyCODONE HCL IR 5 MG TAB (IMMEDIATE RELEASE) PO PRN (07:44)
[2021-06-20] MEDS: metroNIDAZOLE 500 MG/100 ML BAG IV SCH ×2 (07:45→17:38)
[2021-06-20] MEDS: lisinopril 5 MG TAB PO SCH (07:46)
[2021-06-20] MEDS: ASPIRIN 81 MG ECTAB PO SCH (07:46)
[2021-06-20] MEDS: SACCHAROMYCES BOULARDII 250 MG CAP PO SCH (07:46)
[2021-06-20] MEDS: METOPROLOL SUCC 50MG EXT REL TAB PO SCH ×2 (07:46→19:20)
[2021-06-20] MEDS: CLOPIDOGREL BISULFATE 75 MG TAB PO SCH (07:46)
[2021-06-20] MEDS: PANTOprazole 40 MG TAB PO SCH (07:47)
[2021-06-20] MEDS: GABAPENTIN 100 MG CAP PO SCH ×2 (07:47→19:19)
[2021-06-20] MEDS: MULTIVITAMIN TAB PO SCH (07:48)
[2021-06-20] MEDS: INSULIN GLARGINE SOLOSTAR 100 UNITS/ML 3 ML PEN SC SCH (09:01)
[2021-06-20] MEDS: CHOLESTYRAMINE LIGHT 4 GM PKT PO SCH ×2 (09:52→19:21)
[2021-06-20] MEDS: TAMSULOSIN HCL 0.4 MG CAP PO SCH (19:17)
[2021-06-20] MEDS: ATORVASTATIN 40 MG TAB PO SCH (19:17)
[2021-06-20] MEDS: HYDROmorphone INJ 0.5 MG/0.5 ML SYR IV PRN (19:36)
--- NOTE | 2021-06-20 20:26 | Hospitalist Progress Note ---
Date of Service June 20, 2021 Assessment & Plan (1) Dry gangrene: Plan: left great toe and foot was nearly entirely black, foul odor, with surrounding cellulitis and nec fasciitis of dorsal foot up to ankle Wound culture growing MRSA and anaerobic GNR Prevotella as well as Anaerococcus prevotii MRI showed OM of great toe with suspected dorsal nec fasciitis, surrounding cellulitis Appreciate vascular surgery consultation-he does have flow to the foot despite the severe PAD and they do not recommend vascular surgical intervention at this time, however recommend orthopedic intervention -Consult orthopedic surgery-appreciate surgical management-initially Left great toe amputation and foot debridement on 06/15, then BKA 06/16 leukocytosis finally resolved, fever finally resolved after changing abx on 06/13 and now s/p left BKA with Ortho on 06/16 -Postoperative care as per orthopedic surgery-had dressing and drain removed 06/18, new dressing placed, apparently wound looks good -Initially on vancomycin to cover for MRSA, cefepime for Gram negative, and Cli ndamycin for antitoxin effect as well as for anaerobic coverage---> NARROW down to IV Vanco and Flagyl on 06/17 (dc Cefepime and clinda), but may only need a few more days since he had BKA stop Vancomycin 06/19 continue flagyl until discharge -Follow blood cultures-no growth to date -Follow CBC, CMP periodically -post op pain, phantom limb pain, increased gabapentin to 200mg BID -- good response oxycodone 5mg po q6h prn will need PT/OT and SNF placement - plan for [facility] -Psych consult for mood changes associated with recent BKA-consult appreciated, no meds added but supportive counseling given (2) Sepsis: Plan: Sepsis, POA-resolved as above vitals stable, no growth on blood cultures stop Vanco, give Flagyl until d/c (3) PAD (peripheral artery disease): Plan: severe stenosis of tibioperoneal trunk severe anterior, posterior tibial artery stenosis severe peroneal artery stenosis Does have flow likely collaterals to the left foot consult vascular surgery appreciated as above-no intervention at this time (4) Ischemic ulcer of toe of left foot: Plan: arterial doppler with left KEYLA of 0.57 suggesting severe disease plan for CT angiogram left leg - severe disease seen as noted above Continue dual antiplatelet therapy, statin (5) Fall: Plan: fell outside his home, his knees gave out, did not have strength to get up alone no syncope, he was conscious and remembers everything hold on PT/OT as don't want him putting weight on left foot for time being -Likely secondary to generalized weakness from infection (6) GI bleed: Plan: initially suspected, but Hb of 17 in the spring could have been false or hemoconcentration Hemoglobin upon admission 11.0, then 11.4, then 10.2, 9.1 and now down slightly to 8.8 s/p BKA BUN not going up,-does not suggest upper GI bleed Heme positive stools in the ED but he has NOT had any melena and reported no bleeding Have since resumed aspirin and Plavix due to severe PAD and dry gangrene Continue Protonix 40 mg PO daily (7) Symptomatic anemia: Plan: Hb of 11 should not have caused a fall, he had weakness in knees did not have syncope Hemoglobin 9.1 today as above Also with Hemoccult stool positive as above follow CBC (8) History of CVA with residual deficit: Plan: Status post right ICA stent, with multiple bilateral strokes Continue aspirin and Plavix (9) Internal carotid artery stent present: Plan: Continue aspirin and Plavix, statin (10) Elevated troponin I level: Plan: Elevated troponin I level/CAD/stented coronary artery- no chest pain, myocardial demand ischemia has known severe CAD and needs CABG but refuses (11) CAD (coronary artery disease), [place] coronary artery: Plan: had emergent stent in left main in 01/2021 sent for evaluation for CABG at [place] they recommended CABG but the patient was very nervous, scared due to open heart procedure he has not followed up further, not interested in getting CABG thus medical management will be best we can do Continue aspirin, Plavix, statin, metoprolol (12) Stented coronary artery: Plan: See above (13) Diabetes mellitus: Plan: Hold Metformin while inpatient and receiving IV dye Placed on Accu-Cheks before meals and at bedtime/every 6 hours with NovoLog coverage per scale hemoglobin A1c with much improved control down 7.4 from 11.4 in January monitor for hypoglycemia, no episodes he has lost 40 lbs intentionally by eating well, strict low carb diet and started on Metformin after his hospitalization for stroke and [place] in 01/2021 (14) Hyperlipidemia LDL goal <70: Plan: Continue atorvastatin (15) Ischemic cardiomyopathy: Plan: With moderately reduced LV function continue metoprolol at lower dose than home dose (100mg bid) and titrate back up as able to-increase today up to 50mg bid Add his SURYA inhibitor back on tomorrow at lower dose of 5mg daily Needs revascularization but is declining to have CABG (16) Fever: Plan: As above, secondary to left foot infection, now no fever since 06/13 (17) Elevated transaminase level: Plan: Total bilirubin mildly elevated, AST, ALT, and alkaline phosphatase all elevated but now significantly improved after discontinuing Zosyn May have been secondary to Zosyn Alk phos up higher from bony involvement of foot with infection-also now improving Liver ultrasound -shows 2 larger hemangiomas, and mildly thickened gallbladder but it was contracted this patient was not fasting He has no abdominal pain (18) Diarrhea: Plan: In the setting of IV antibiotics-ongoing but improving Check C. difficile-negative -added Florastor -Added cholestyramine (19) Urinary retention: Plan: Requiring straight cath x2 on 06/12 and again on 06/15 Has a history of nocturia prior to admission Added Flomax on 06/12 Place Allen catheter on 06/15 as has required persistent straight catheterization Will need a trial of void prior to discharge plan to pull in AM (20) Anemia: Plan: As above, hemoglobin 9.1, some blood loss anemia, some chronic disease, blood draws Follow CBC (21) Paroxysmal atrial fibrillation: Plan: had Afib x 4 hours on AM of 06/12 and also on 06/09 Continue to monitor on telemetry He is not a good candidate for anticoagulation at this time given Hemoccult positive stool and declining hemoglobin It was short-lived continue metoprolol and increasing dose to 50mg bid (22) Hyponatremia: Plan: Na+ 130 today, unclear why. Making urine, drinking Perhaps SIADH from pain? Ur Na+ and Ur Osm ordered - Na 33 and osm 267, not concentrating urine, doubt SIADH -follow BMP in [place] mentating at baseline not volume overloaded (23) Ventricular tachycardia: Plan: had 14 beat run of VT overnight 06/17 increase metorolol to 50 bid does have low EF, high risk for VT consider ICD if not having CABG will need f/u with Cardiology after discharge continue tele monitoring (24) DVT prophylaxis: Plan: SCDs only given Hemoccult positive stool Disposition -continued stay in PCU, eventually to SNF at [facility] when ok from Ortho standpoint-hopefully by Wed Changed CODE STATUS to DNR/DNI, patient filled out advanced directives Admission and Anticipated Discharge Date Admission Date: June 09, 2021 Subjective patient feeling well, pain is better after increasing gabapentin eating well, moving bowels, no fever d/w CM, can go to SNF pending insurance authorization no issues on tele, will downgrade to medical status Review of Systems Review of Systems: All systems reviewed & are unremarkable except as noted in Subjective Constitutional: + weakness Musculoskeletal: + joint pain (left BKA, phantom limb pain) Physical Exam Constitutional: well developed, well nourished and + disheveled; no acute distress Neck: trachea midline, no thyromegaly Respiratory: normal respiratory effort, lungs clear to auscultation Cardiovascular: Rate/Rhythm: regular rate and regular rhythm Heart Sounds: normal S1 and normal S2; no murmur Vessels: no JVD and + abnormal peripheral pulses (diminished PT and DP pulses right foot) Extremities: + abnormal capillary refill (delayed in feet) and no edema Gastrointestinal (Abdomen): normal bowel sounds, soft, nontender, no hepatosplenomegaly Musculoskeletal: Head/Neck/Chest: normocephalic, head atraumatic and neck supple Extremities: strength 5/5 throughout and + amputation noted (left BKA) Skin: + wound (left big toe, dry gangrene, skin, very foul odor), + dry skin and + erythema (dark discoloration of feet, signs of vascular insufficiency) Neurologic: patellar DTR's 2+ bilat, sensation intact and PERRL, EOMI, accommodation nl, no face palsy, no dysarthria Psychiatric: Orientation: alert and oriented x 3 Affect: + flat affect Results & Data Results & Data ([facility]) Vital Signs (Past 12 Hours) Vital Signs Temp Pulse Pulse Resp BP Pulse Ox 06/20/21 19:00 36.6 C 73 18 141/72 H 99 06/20/21 18:43 67 06/20/21 16:00 36.7 C 69 20 171/75 H 96 06/20/21 12:06 36.6 C 64 20 169/81 H 96 06/20/21 11:02 61 Laboratory Results Laboratory Results - last 24 hr 07/20/21 07/20/21 07/20/21 05:43 07:21 11:36 Creatinine 0.48 L Est Cr Clr Drug Dosing 161.5 Est GFR ( Amer) 130.3 Est GFR (Non-Af Amer) 112.4 POC Glucose 133 H 172 H 06/20/21 06/20/21 16:35 19:24 Creatinine Est Cr Clr Drug Dosing Est GFR ( Amer) Est GFR (Non-Af Amer) POC Glucose 163 H 209 H Medications Administered Current Inpatient Medications Acetaminophen (Acetaminophen 325 Mg Tab) 650 mg PO Q4H PRN PRN Reason: pain or fever Stop: 07/10/21 20:47 Last Admin: 06/17/21 13:41 Dose: 650 mg Documented by: Aspirin (Aspirin 81 Mg Ectab) 81 mg PO QAM [facility] Stop: 07/10/21 16:29 Last Admin: 06/20/21 07:46 Dose: 81 mg Documented by: Atorvastatin Calcium (Atorvastatin 40 Mg Tab) 80 mg PO [facility] Stop: 07/10/21 20:59 Last Admin: 06/20/21 19:17 Dose: 80 mg Documented by: Cholestyramine Resin (Cholestyramine Light 4 Gm Pkt) 4 gm PO BID@1000,2200 [facility] Stop: 07/15/21 21:59 Last Admin: 06/20/21 19:21 Dose: 4 gm Documented by: Clopidogrel Bisulfate (Clopidogrel Bisulfate 75 Mg Tab) 75 mg PO QAM [facility] Stop: 07/10/21 16:29 Last Admin: 06/20/21 07:46 Dose: 75 mg Documented by: Dextrose (Dextrose 50% 50 Ml Syringe) 25 - 50 ml IV UD PRN; Protocol PRN Reason: Hypoglycemia Protocol Stop: 07/09/21 17:05 Gabapentin (Gabapentin 100 Mg Cap) 200 mg PO BID [facility] Stop: 07/20/21 08:59 Last Admin: 06/20/21 19:19 Dose: 200 mg Documented by: Glucagon (Glucagon For Inj 1 Mg Vial) 1 mg SQ UD PRN; Protocol PRN Reason: Hypoglycemia Protocol Stop: 07/09/21 17:05 Glucose (Glucose 10 Tabs/Tube) 4 - 8 tabs PO UD PRN; Protocol PRN Reason: Hypoglycemia Protocol Stop: 07/09/21 17:05 Glucose (Glucose 40% Gel 15 Gm Tube) 15 - 30 gm PO UD PRN; Protocol PRN Reason: Hypoglycemia Protocol Stop: 07/09/21 17:05 Hydromorphone HCl (Hydromorphone Inj 0.5 Mg/0.5 Ml Syr) 0.5 mg IV Q4H PRN PRN Reason: Pain or Pre PT Stop: 06/30/21 19:34 Last Admin: 06/20/21 19:36 Dose: 0.5 mg Documented by: Metronidazole (Flagyl) 500 mg in 100 mls @ 100 mls/hr IV Q8H REESE; Protocol Stop: 06/24/21 15:59 Last Infusion: 06/20/21 18:46 Dose: Infused Documented by: Insulin Aspart (Insulin Aspart 100 Units/Ml 3 Ml Pen) 0 units SC ACHS [facility] Stop: 07/15/21 16:29 Last Admin: 06/20/21 19:24 Dose: 3 units Documented by: Insulin Glargine (Insulin Glargine Solostar 100 Units/Ml 3 Ml Pen) 8 units SC DAILY [facility] Stop: 07/16/21 10:44 Last Admin: 06/20/21 09:01 Dose: 8 units Documented by: Lisinopril (Lisinopril 5 Mg Tab) 5 mg PO QAM [facility] Stop: 07/19/21 08:59 Last Admin: 06/20/21 07:46 Dose: 5 mg Documented by: Magnesium Hydroxide (Magnesium Hydroxide Susp 30 Ml Udc) 30 ml PO Q6H PRN PRN Reason: Constipation Stop: 07/16/21 19:34 Metoprolol Succinate (Metoprolol Succ 50mg Ext Rel Tab) 50 mg PO BID [facility] Stop: 07/18/21 20:59 Last Admin: 06/20/21 19:20 Dose: 50 mg Documented by: Miscellaneous (Carbohydrates For Hypoglycemia ) 15 - 30 gm PO UD PRN PRN Reason: Hypoglycemia Protocol Stop: 07/09/21 17:05 Multivitamins (Multivitamin Tab) 1 tab PO QAM [facility] Stop: 07/17/21 08:59 Last Admin: 06/20/21 07:48 Dose: 1 tab Documented by: Naloxone HCl (Naloxone Hcl 0.4 Mg/1 Ml Vial/Carp) 0.1 mg IV Q5M PRN PRN Reason: Oversedation/Resp Depression Stop: 07/16/21 19:34 Ondansetron HCl (Ondansetron Inj 2 Mg/Ml 2 Ml Vial) 4 mg IV Q6H PRN PRN Reason: Nausea And Vomiting Stop: 07/16/21 19:34 Oxycodone HCl (Oxycodone Hcl Ir 5 Mg Tab (Immediate Release)) 5 mg PO Q6 PRN PRN Reason: Pain Stop: 07/01/21 15:09 Last Admin: 06/20/21 07:44 Dose: 5 mg Documented by: Pantoprazole Sodium (Pantoprazole 40 Mg Tab) 40 mg PO QAM [facility] Stop: 07/11/21 08:59 Last Admin: 06/20/21 07:47 Dose: 40 mg Documented by: Saccharomyces Boulardii (Saccharomyces Boulardii 250 Mg Cap) 250 mg PO DAILY [facility] Stop: 07/13/21 12:59 Last Admin: 06/20/21 07:46 Dose: 250 mg Documented by: Tamsulosin HCl (Tamsulosin Hcl 0.4 Mg Cap) 0.4 mg PO HS [facility] Stop: 07/12/21 20:59 Last Admin: 06/20/21 19:17 Dose: 0.4 mg Documented by: PG Care Time/CCT Total # of Minutes Spent Total Time Spent with Patient: Total time spent is greater than 50% in coordination of care (as documented) at patient's floor/unit and/or counseling patient: Coding Level of Care Code 42054 Subseq Hosp Care Lvl 2 Diagnoses Dry gangrene I96 Sepsis A41.9 Fever R50.9 PAD (peripheral artery disease) I73.9 Ischemic ulcer of toe of left foot L97.529 Fall W19.XXXA GI bleed K92.2 GI bleed type/associated pathology: unspecified gastrointestinal hemorrhage type Symptomatic anemia D64.9 History of CVA with residual deficit I69.30 Internal carotid artery stent present Z95.828 Elevated troponin I level R77.8 CAD (coronary artery disease), [place] coronary artery I25.10 Stented coronary artery Z95.5 Diabetes mellitus E13.69 Diabetes mellitus complication status: with other specified complication Diabetes mellitus intermediate teacher insulin use: unspecified intermediate teacher insulin use status Diabetes mellitus type: other specified (including RODRI) Hyperlipidemia LDL goal <70 E78.5 Ischemic cardiomyopathy I25.5 Elevated transaminase level R74.01 Diarrhea R19.7 Urinary retention R33.9 Anemia D64.9 Paroxysmal atrial fibrillation I48.0 Hyponatremia E87.1 Ventricular tachycardia I47.2 DVT prophylaxis Z29.9 (1) GI bleed GI bleed type/associated pathology: unspecified gastrointestinal hemorrhage type Qualified Code(s): K92.2 - Gastrointestinal hemorrhage, unspecified (2) Diabetes mellitus Diabetes mellitus complication status: with other specified complication Diab etes mellitus intermediate teacher insulin use: unspecified intermediate teacher insulin use status Diabetes mellitus type: other specified (including RODRI) Qualified Code(s): E13.69 - Other specified diabetes mellitus with other specified complication
[2021-06-21] MEDS: metroNIDAZOLE 500 MG/100 ML BAG IV SCH ×3 (00:32→17:00)
[2021-06-21 07:12] LABS: Creatinine Clr Calc Pharmacy 126.1 ml/min; Est GFR (African American) 116.5 ml/min; Est GFR (Non-African American) 100.5 ml/min
[2021-06-21] MEDS: INSULIN ASPART 100 UNITS/ML 3 ML PEN SC SCH ×4 (08:04→20:58)
[2021-06-21] MEDS: SACCHAROMYCES BOULARDII 250 MG CAP PO SCH (08:07)
[2021-06-21] MEDS: INSULIN GLARGINE SOLOSTAR 100 UNITS/ML 3 ML PEN SC SCH (08:07)
[2021-06-21] MEDS: PANTOprazole 40 MG TAB PO SCH (08:07)
[2021-06-21] MEDS: CLOPIDOGREL BISULFATE 75 MG TAB PO SCH (08:08)
[2021-06-21] MEDS: GABAPENTIN 100 MG CAP PO SCH ×2 (08:08→20:47)
[2021-06-21] MEDS: MULTIVITAMIN TAB PO SCH (08:08)
[2021-06-21] MEDS: METOPROLOL SUCC 50MG EXT REL TAB PO SCH ×2 (08:08→20:48)
[2021-06-21] MEDS: lisinopril 5 MG TAB PO SCH (08:08)
[2021-06-21] MEDS: ASPIRIN 81 MG ECTAB PO SCH (08:08)
[2021-06-21] MEDS: CHOLESTYRAMINE LIGHT 4 GM PKT PO SCH ×2 (10:37→20:47)
--- NOTE | 2021-06-21 11:16 | Hospitalist Progress Note ---
Date of Service June 21, 2021 Assessment & Plan (1) Dry gangrene: Plan: left great toe and foot was nearly entirely black, foul odor, with surrounding cellulitis and nec fasciitis of dorsal foot up to ankle Wound culture growing MRSA and anaerobic GNR Prevotella as well as Anaerococcus prevotii MRI showed OM of great toe with suspected dorsal nec fasciitis, surrounding cellulitis Appreciate vascular surgery consultation-he does have flow to the foot despite the severe PAD and they do not recommend vascular surgical intervention at this time, however recommend orthopedic intervention -Consult orthopedic surgery-appreciate surgical management-initially Left great toe amputation and foot debridement on 06/15, then BKA 06/16 leukocytosis finally resolved, fever finally resolved after changing abx on 06/13 and now s/p left BKA with Ortho on 06/16 -Postoperative care as per orthopedic surgery-had dressing and drain removed 06/18, new dressing placed, apparently wound looks good -Initially on vancomycin to cover for MRSA, cefepime for Gram negative, and Cli ndamycin for antitoxin effect as well as for anaerobic coverage---> NARROW down to IV Vanco and Flagyl on 06/17 (dc Cefepime and clinda), but may only need a few more days since he had BKA stop Vancomycin 06/19 stop Flagyl today -Follow blood cultures-no growth to date -Follow CBC, CMP periodically -post op pain, phantom limb pain, increased gabapentin to 200mg BID -- good response oxycodone 5mg po q6h prn will need PT/OT and SNF placement - plan for [facility] tomorrow -Psych consult for mood changes associated with recent BKA-consult appreciated, no meds added but supportive counseling given (2) Sepsis: Plan: Sepsis, POA-resolved as above vitals stable, no growth on blood cultures stop Vanco, stop Flagyl today (3) PAD (peripheral artery disease): Plan: severe stenosis of tibioperoneal trunk severe anterior, posterior tibial artery stenosis severe peroneal artery stenosis Does have flow likely collaterals to the left foot consult vascular surgery appreciated as above-no intervention at this time (4) Ischemic ulcer of toe of left foot: Plan: arterial doppler with left KEYLA of 0.57 suggesting severe disease plan for CT angiogram left leg - severe disease seen as noted above Continue dual antiplatelet therapy, statin (5) Fall: Plan: fell outside his home, his knees gave out, did not have strength to get up alone no syncope, he was conscious and remembers everything hold on PT/OT as don't want him putting weight on left foot for time being -Likely secondary to generalized weakness from infection (6) GI bleed: Plan: initially suspected, but Hb of 17 in the spring could have been false or hemoconcentration Hemoglobin upon admission 11.0, then 11.4, then 10.2, 9.1 and now down slightly to 8.8 s/p BKA BUN not going up,-does not suggest upper GI bleed Heme positive stools in the ED but he has NOT had any melena and reported no bleeding Have since resumed aspirin and Plavix due to severe PAD and dry gangrene Continue Protonix 40 mg PO daily (7) Symptomatic anemia: Plan: Hb of 11 should not have caused a fall, he had weakness in knees did not have syncope Hemoglobin 9.1 today as above Also with Hemoccult stool positive as above follow CBC (8) History of CVA with residual deficit: Plan: Status post right ICA stent, with multiple bilateral strokes Continue aspirin and Plavix (9) Internal carotid artery stent present: Plan: Continue aspirin and Plavix, statin (10) Elevated troponin I level: Plan: Elevated troponin I level/CAD/stented coronary artery- no chest pain, myocardial demand ischemia has known severe CAD and needs CABG but refuses (11) CAD (coronary artery disease), [place] coronary artery: Plan: had emergent stent in left main in 01/2021 sent for evaluation for CABG at [place] they recommended CABG but the patient was very nervous, scared due to open heart procedure he has not followed up further, not interested in getting CABG thus medical management will be best we can do Continue aspirin, Plavix, statin, metoprolol (12) Stented coronary artery: Plan: See above (13) Diabetes mellitus: Plan: Hold Metformin while inpatient and receiving IV dye Placed on Accu-Cheks before meals and at bedtime/every 6 hours with NovoLog coverage per scale hemoglobin A1c with much improved control down 7.4 from 11.4 in January monitor for hypoglycemia, no episodes he has lost 40 lbs intentionally by eating well, strict low carb diet and started on Metformin after his hospitalization for stroke and GA in 01/2021 (14) Hyperlipidemia LDL goal <70: Plan: Continue atorvastatin (15) Ischemic cardiomyopathy: Plan: With moderately reduced LV function continue metoprolol at lower dose than home dose (100mg bid) and titrate back up as able to-increase today up to 50mg bid Add his SURYA inhibitor back on tomorrow at lower dose of 5mg daily Needs revascularization but is declining to have CABG (16) Fever: Plan: As above, secondary to left foot infection, now no fever since 06/13 (17) Elevated transaminase level: Plan: Total bilirubin mildly elevated, AST, ALT, and alkaline phosphatase all elevated but now significantly improved after discontinuing Zosyn May have been secondary to Zosyn Alk phos up higher from bony involvement of foot with infection-also now improving Liver ultrasound -shows 2 larger hemangiomas, and mildly thickened gallbladder but it was contracted this patient was not fasting He has no abdominal pain (18) Diarrhea: Plan: In the setting of IV antibiotics-ongoing but improving Check C. difficile-negative -added Florastor -Added cholestyramine (19) Urinary retention: Plan: Requiring straight cath x2 on 06/12 and again on 06/15 Has a history of nocturia prior to admission Added Flomax on 06/12 Place Lea catheter on 06/15 as has required persistent straight catheterization Will need a trial of void prior to discharge plan to pull in AM (20) Anemia: Plan: As above, hemoglobin 9.1, some blood loss anemia, some chronic disease, blood draws Follow CBC (21) Paroxysmal atrial fibrillation: Plan: had Afib x 4 hours on AM of 06/12 and also on 06/09 Continue to monitor on telemetry He is not a good candidate for anticoagulation at this time given Hemoccult positive stool and declining hemoglobin It was short-lived continue metoprolol and increasing dose to 50mg bid (22) Hyponatremia: Plan: Na+ 130 today, unclear why. Making urine, drinking Perhaps SIADH from pain? Ur Na+ and Ur Osm ordered - Na 33 and osm 267, not concentrating urine, doubt SIADH -follow BMP in [place] mentating at baseline not volume overloaded (23) Ventricular tachycardia: Plan: had 14 beat run of VT overnight 06/17 increase metorolol to 50 bid does have low EF, high risk for VT consider ICD if not having CABG will need f/u with Cardiology after discharge continue tele monitoring (24) DVT prophylaxis: Plan: SCDs only given Hemoccult positive stool Disposition -continued stay in PCU, eventually to SNF at [facility] when ok from Ortho standpoint-hopefully by Wed Changed CODE STATUS to DNR/DNI, patient filled out advanced directives Admission and Anticipated Discharge Date Admission Date: June 09, 2021 Subjective patient doing great, no issues, pain is well controlled eating well will pull lea today, he agrees can go to [facility] tomorrow Review of Systems Review of Systems: All systems reviewed & are unremarkable except as noted in Subjective Musculoskeletal: + joint pain (left BKA pain, phantom pain) Physical Exam Constitutional: well developed, well nourished and + disheveled; no acute distress Neck: trachea midline, no thyromegaly Respiratory: normal respiratory effort, lungs clear to auscultation Cardiovascular: Rate/Rhythm: regular rate and regular rhythm Heart Sounds: normal S1 and normal S2; no murmur Vessels: no JVD and + abnormal peripheral pulses (diminished PT and DP pulses right foot) Extremities: + abnormal capillary refill (delayed in feet) and no edema Gastrointestinal (Abdomen): normal bowel sounds, soft, nontender, no hepatosplenomegaly Musculoskeletal: Head/Neck/Chest: normocephalic, head atraumatic and neck supple Extremities: strength 5/5 throughout and + amputation noted (left BKA) Skin: + dry skin Neurologic: patellar DTR's 2+ bilat, sensation intact and PERRL, EOMI, accommodation nl, no face palsy, no dysarthria Psychiatric: Orientation: alert and oriented x 3 Affect: + flat affect Results & Data Results & Data ([facility]) Vital Signs (Past 12 Hours) Vital Signs Temp Pulse Pulse Resp BP Pulse Ox 06/21/21 07:29 65 06/21/21 07:23 36.6 C 68 16 126/72 97 06/21/21 03:00 36.6 C 60 18 122/65 96 Laboratory Results Laboratory Results - last 24 hr 06/21/21 06/21/21 06/21/21 05:57 07:24 11:18 Creatinine 0.63 Est Cr Clr Drug Dosing 126.1 Est GFR ( Amer) 116.5 Est GFR (Non-Af Amer) 100.5 POC Glucose 134 H 181 H 06/21/21 06/21/21 16:29 20:29 Creatinine Est Cr Clr Drug Dosing Est GFR ( Amer) Est GFR (Non-Af Amer) POC Glucose 188 H 153 H Medications Administered Current Inpatient Medications Acetaminophen (Acetaminophen 325 Mg Tab) 650 mg PO Q4H PRN PRN Reason: pain or fever Stop: 07/10/21 20:47 Last Admin: 06/17/21 13:41 Dose: 650 mg Documented by: Aspirin (Aspirin 81 Mg Ectab) 81 mg PO QAM [facility] Stop: 07/10/21 16:29 Last Admin: 06/21/21 08:08 Dose: 81 mg Documented by: Atorvastatin Calcium (Atorvastatin 40 Mg Tab) 80 mg PO HS [facility] Stop: 07/10/21 20:59 Last Admin: 06/21/21 20:48 Dose: 80 mg Documented by: Cholestyramine Resin (Cholestyramine Light 4 Gm Pkt) 4 gm PO BID@1000,2200 [facility] Stop: 07/15/21 21:59 Last Admin: 06/21/21 20:47 Dose: 4 gm Documented by: Clopidogrel Bisulfate (Clopidogrel Bisulfate 75 Mg Tab) 75 mg PO QAM [facility] Stop: 07/10/21 16:29 Last Admin: 06/21/21 08:08 Dose: 75 mg Documented by: Dextrose (Dextrose 50% 50 Ml Syringe) 25 - 50 ml IV UD PRN; Protocol PRN Reason: Hypoglycemia Protocol Stop: 07/09/21 17:05 Gabapentin (Gabapentin 100 Mg Cap) 200 mg PO BID [facility] Stop: 07/20/21 08:59 Last Admin: 06/21/21 20:47 Dose: 200 mg Documented by: Glucagon (Glucagon For Inj 1 Mg Vial) 1 mg SQ UD PRN; Protocol PRN Reason: Hypoglycemia Protocol Stop: 07/09/21 17:05 Glucose (Glucose 10 Tabs/Tube) 4 - 8 tabs PO UD PRN; Protocol PRN Reason: Hypoglycemia Protocol Stop: 07/09/21 17:05 Glucose (Glucose 40% Gel 15 Gm Tube) 15 - 30 gm PO UD PRN; Protocol PRN Reason: Hypoglycemia Protocol Stop: 07/09/21 17:05 Insulin Aspart (Insulin Aspart 100 Units/Ml 3 Ml Pen) 0 units SC ACHS [facility] Stop: 07/15/21 16:29 Last Admin: 06/21/21 20:58 Dose: 1 units Documented by: Insulin Glargine (Insulin Glargine Solostar 100 Units/Ml 3 Ml Pen) 8 units SC DAILY [facility] Stop: 07/16/21 10:44 Last Admin: 06/21/21 08:07 Dose: 8 units Documented by: Lisinopril (Lisinopril 5 Mg Tab) 5 mg PO QAM [facility] Stop: 07/19/21 08:59 Last Admin: 06/21/21 08:08 Dose: 5 mg Documented by: Magnesium Hydroxide (Magnesium Hydroxide Susp 30 Ml Udc) 30 ml PO Q6H PRN PRN Reason: Constipation Stop: 07/16/21 19:34 Metoprolol Succinate (Metoprolol Succ 50mg Ext Rel Tab) 50 mg PO BID [facility] Stop: 07/18/21 20:59 Last Admin: 06/21/21 20:48 Dose: 50 mg Documented by: Miscellaneous (Carbohydrates For Hypoglycemia ) 15 - 30 gm PO UD PRN PRN Reason: Hypoglycemia Protocol Stop: 07/09/21 17:05 Multivitamins (Multivitamin Tab) [address] [facility] Stop: 07/17/21 08:59 Last Admin: 06/21/21 08:08 Dose: 1 tab Documented by: Naloxone HCl (Naloxone Hcl 0.4 Mg/1 Ml Vial/Carp) 0.1 mg IV Q5M PRN PRN Reason: Oversedation/Resp Depression Stop: 07/16/21 19:34 Ondansetron HCl (Ondansetron Inj 2 Mg/Ml 2 Ml Vial) 4 mg IV Q6H PRN PRN Reason: Nausea And Vomiting Stop: 07/16/21 19:34 Oxycodone HCl (Oxycodone Hcl Ir 5 Mg Tab (Immediate Release)) 5 mg PO Q6 PRN PRN Reason: Pain Stop: 07/01/21 15:09 Last Admin: 06/21/21 20:49 Dose: 5 mg Documented by: Pantoprazole Sodium (Pantoprazole 40 Mg Tab) 40 mg PO QAM [facility] Stop: 07/11/21 08:59 Last Admin: 06/21/21 08:07 Dose: 40 mg Documented by: Saccharomyces Boulardii (Saccharomyces Boulardii 250 Mg Cap) 250 mg PO DAILY [facility] Stop: 07/13/21 12:59 Last Admin: 06/21/21 08:07 Dose: 250 mg Documented by: Tamsulosin HCl (Tamsulosin Hcl 0.4 Mg Cap) 0.4 mg PO HS [facility] Stop: 07/12/21 20:59 Last Admin: 06/21/21 20:48 Dose: 0.4 mg Documented by: PG Care Time/CCT Total # of Minutes Spent Total Time Spent with Patient: Total time spent is greater than 50% in coordination of care (as documented) at patient's floor/unit and/or counseling patient: Coding Level of Care Code 89875 Subseq Hosp Care Lvl 2 Diagnoses Dry gangrene I96 Sepsis A41.9 PAD (peripheral artery disease) I73.9 Ischemic ulcer of toe of left foot L97.529 Fall W19.XXXA GI bleed K92.2 GI bleed type/associated pathology: unspecified gastrointestinal hemorrhage type Symptomatic anemia D64.9 History of CVA with residual deficit I69.30 Internal carotid artery stent present Z95.828 Elevated troponin I level R77.8 CAD (coronary artery disease), [place] coronary artery I25.10 Stented coronary artery Z95.5 Diabetes mellitus E13.69 Diabetes mellitus complication status: with other specified complication Diabetes mellitus jail 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 Diabetes mellitus type: other specified (including RODRI) Hyperlipidemia LDL goal <70 E78.5 Ischemic cardiomyopathy I25.5 Fever R50.9 Elevated transaminase level R74.01 Diarrhea R19.7 Urinary retention R33.9 Anemia D64.9 Paroxysmal atrial fibrillation I48.0 Hyponatremia E87.1 Ventricular tachycardia I47.2 DVT prophylaxis Z29.9 (1) Diabetes mellitus Diabetes mellitus complication status: with other specified complication 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
[2021-06-21] MEDS: TAMSULOSIN HCL 0.4 MG CAP PO SCH (20:48)
[2021-06-21] MEDS: ATORVASTATIN 40 MG TAB PO SCH (20:48)
[2021-06-21] MEDS: oxyCODONE HCL IR 5 MG TAB (IMMEDIATE RELEASE) PO PRN (20:49)
[2021-06-22] MEDS: ASPIRIN 81 MG ECTAB PO SCH (07:59)
[2021-06-22] MEDS: METOPROLOL SUCC 50MG EXT REL TAB PO SCH (08:00)
[2021-06-22] MEDS: CLOPIDOGREL BISULFATE 75 MG TAB PO SCH (08:00)
[2021-06-22] MEDS: MULTIVITAMIN TAB PO SCH (08:00)
[2021-06-22] MEDS: SACCHAROMYCES BOULARDII 250 MG CAP PO SCH (08:00)
[2021-06-22] MEDS: PANTOprazole 40 MG TAB PO SCH (08:00)
[2021-06-22] MEDS: lisinopril 5 MG TAB PO SCH (08:00)
[2021-06-22] MEDS: GABAPENTIN 100 MG CAP PO SCH (08:00)
[2021-06-22] MEDS: INSULIN ASPART 100 UNITS/ML 3 ML PEN SC SCH (09:18)
[2021-06-22] MEDS: INSULIN GLARGINE SOLOSTAR 100 UNITS/ML 3 ML PEN SC SCH (09:18)
--- NOTE | 2021-06-22 10:10 | Discharge Summary ---
Date of Service June 22, 2021 Admission HPI Per Admitting Provider The patient is a 70-year-old male with a past medical history including acute CVA on 02/12/2021, status post stenting of right ICA on 02/20/[address] Cruz at [facility] [place], cardiac catheterization at that time which showed 99% distal left main stent disease extending to the proximal LAD with further disease in the RCA and circumflex, status post HERNANDEZ of distal left main extending to the LAD along with IABP which she was ultimately weaned off of. He was to continue aspirin and Plavix dual antiplatelet treatment for 3 months to allow endothelialization of the carotid artery stent, prior to consideration for CABG that would require stopping Plavix temporarily, moderate mitral regurgitation. At that time, he was unwilling to undergo surgery due to financial issues, and was to reconsult with [facility] [place] surgery once he felt he was ready to undergo surgery. His family member in attendance reports that his mentation has continued to be slower, and has memory issues, since he had his CVA in January, Evaluation in the emergency department at [facility] today revealed the following abnormalities: Troponin 0.073, albumin 2.8, WBC 20.82, glucose 167, total bilirubin 1.5, AST 51. His hemoglobin was noted to have dropped to 6 g from previous, and stools were found to be Hemoccult positive. Principal Diagnosis Left great toe osteomyelitis, necrotizing fasciitis Discharge Exam Constitutional well developed, well nourished and + disheveled; no acute distress Neck trachea midline, no thyromegaly Respiratory normal respiratory effort, lungs clear to auscultation Cardiovascular Rate/Rhythm: regular rate and regular rhythm Heart Sounds: normal S1 and normal S2; no murmur Vessels: no JVD and + abnormal peripheral pulses (diminished PT and DP pulses right foot) Extremities: + abnormal capillary refill (delayed in feet on right) and no edema Gastrointestinal (Abdomen) normal bowel sounds, soft, nontender, no hepatosplenomegaly Musculoskeletal Head/Neck/Chest: normocephalic, head atraumatic and neck supple Extremities: strength 5/5 throughout and + amputation noted (left BKA) Skin + dry skin Neurologic patellar DTR's 2+ bilat, sensation intact and PERRL, EOMI, accommodation nl, no face palsy, no dysarthria Psychiatric Orientation: alert and oriented x 3 Affect: + flat affect Discharge Data Allergies Allergy/AdvReac Type Severity Reaction Status Date / Time No Known Allergies Allergy Unverified 06/09/21 13:36 Consultations 06/09/21 14:00 Consult Cardiology Stat ED Decision to Admit Stat 06/11/21 07:13 Consult Vascular Surgery Routine 06/12/21 13:44 Consult Orthopedic Surgery Routine 06/17/21 15:15 Consult Psychiatry Routine Procedures Performed Operation Date: 06/15/21 09:50 Actual Procedures p Left Great Toe Amputation(Left) - Chester Waldrop M.D. s Left Foot Incision and Drainage, Placement of Wound Vac(Left) - Chester Waldrop M.D. Operation Date: 06/16/21 14:15 Actual Procedures p Left Below Knee Amputation(Left) - Bright English DO Ordered Studies 06/09/21 14:05 CT abd pelvis IV con only Stat CT head/brain wo con Stat 06/09/21 17:41 US arterial duplex LE BI Urgent 06/11/21 07:11 CT angio LE LT w inc wo if don Routine 06/12/21 10:00 US liver Urgent 06/12/21 16:46 MR foot LT wo/w con Routine 06/15/21 07:07 US - OR guided needle placemen Routine 06/16/21 15:14 US - OR guided needle placemen Routine Hospital Course (1) Dry gangrene: left great toe and foot was nearly entirely black, foul odor, with surrounding cellulitis and nec fasciitis of dorsal foot up to ankle Wound culture growing MRSA and anaerobic GNR Prevotella as well as Anaerococcus prevotii MRI showed OM of great toe with suspected dorsal nec fasciitis, surrounding cellulitis Appreciate vascular surgery consultation-he does have flow to the foot despite the severe PAD and they do not recommend vascular surgical intervention at this time, however recommend orthopedic intervention -Consult orthopedic surgery-appreciate surgical management-initially Left great toe amputation and foot debridement on 06/15, then BKA 06/16 leukocytosis finally resolved, fever finally resolved after changing abx on 06/13 and now s/p left BKA with Ortho on 06/16 -Postoperative care as per orthopedic surgery-had dressing and drain removed 06/18, new dressing placed, apparently wound looks good follow up with Dr. English, NWB to left leg, see d/c instructions -Initially on vancomycin to cover for MRSA, cefepime for Gram negative, and Clindamycin for antitoxin effect as well as for anaerobic coverage---> narrowed down to IV Vanco and Flagyl on 06/17 stopped Vancomycin 06/19 stopped Flagyl 06/21 -Follow blood cultures-no growth to date -post op pain, phantom limb pain, increased gabapentin to 200mg BID -- good response oxycodone 5mg po q6h prn will need PT/OT and SNF placement - plan for [facility] tomorrow -Psych consult for mood changes associated with recent BKA-consult appreciated, no meds added but supportive counseling given (2) Sepsis: Sepsis, POA-resolved as above vitals stable, no growth on blood cultures stop Vanco, stop Flagyl since infection has been removed (3) PAD (peripheral artery disease): severe stenosis of tibioperoneal trunk severe anterior, posterior tibial artery stenosis severe peroneal artery stenosis Does have flow likely collaterals to the left foot consult vascular surgery appreciated as above-no intervention at this time, continue aspirin/Plavix (4) Ischemic ulcer of toe of left foot: arterial doppler with left KEYLA of 0.57 suggesting severe disease plan for CT angiogram left leg - severe disease seen as noted above Continue dual antiplatelet therapy, statin (5) Fall: fell outside his home, his knees gave out, did not have strength to get up alone no syncope, he was conscious and remembers everything hold on PT/OT as don't want him putting weight on left foot for time being -Likely secondary to generalized weakness from infection (6) GI bleed: initially suspected, but Hb of 17 in the spring could have been false or hemoconcentration Hemoglobin upon admission 11.0, then 11.4, then 10.2, 9.1, 8.8 after BKA BUN not going up,-does not suggest upper GI bleed Heme positive stools in the ED but he has NOT had any melena and reported no bleeding Have since resumed aspirin and Plavix due to severe PAD and dry gangrene Continue Protonix 40 mg PO daily (7) Symptomatic anemia: Hb of 11 should not have caused a fall, he had weakness in knees did not have syncope Hemoglobin 9.1 when last checked, stable Also with Hemoccult stool positive as above follow CBC (8) History of CVA with residual deficit: Status post right ICA stent, with multiple bilateral strokes Continue aspirin and Plavix (9) Internal carotid artery stent present: Continue aspirin and Plavix, statin (10) Elevated troponin I level: Elevated troponin I level/CAD/stented coronary artery- no chest pain, myocardial demand ischemia has known severe CAD and needs CABG but refuses (11) CAD (coronary artery disease), havasupai coronary artery: had emergent stent in left main in 01/2021 sent for evaluation for CABG at [facility] they recommended CABG but the patient was very nervous, scared due to open heart procedure he has not followed up further, not interested in getting CABG thus medical management will be best we can do Continue aspirin, Plavix, statin, metoprolol (12) Stented coronary artery: See above (13) Diabetes mellitus: Hold Metformin while inpatient and receiving IV dye Placed on Accu-Cheks before meals and at bedtime/every 6 hours with NovoLog coverage per scale hemoglobin A1c with much improved control down 7.4 from 11.4 in January monitor for hypoglycemia, no episodes he has lost 40 lbs intentionally by eating well, strict low carb diet and started on Metformin after his hospitalization for stroke and [place] in 01/2021 resume Metformin, diabetic diet (14) Hyperlipidemia LDL goal <70: Continue atorvastatin (15) Ischemic cardiomyopathy: With moderately reduced LV function continue metoprolol succinate 50mg bid Add his SURYA inhibitor back on tomorrow at lower dose of 5mg daily Needs revascularization but is declining to have CABG (16) Fever: As above, secondary to left foot infection, now no fever since 06/13 (17) Elevated transaminase level: Total bilirubin mildly elevated, AST, ALT, and alkaline phosphatase all elevated but now significantly improved after discontinuing Zosyn May have been secondary to Zosyn Alk phos up higher from bony involvement of foot with infection-also now improving Liver ultrasound -shows 2 larger hemangiomas, and mildly thickened gallbladder but it was contracted this patient was not fasting He has no abdominal pain (18) Diarrhea: In the setting of IV antibiotics-ongoing but improving Check C. difficile-negative -added Florastor -Added cholestyramine stools solid, can stop cholesyramine (19) Urinary retention: Requiring straight cath x2 on 06/12 and again on 06/15 Has a history of nocturia prior to admission Added Flomax on 06/12 Place Lea catheter on 06/15 as has required persistent straight catheterization Will need a trial of void prior to discharge pulled lea on 06/21 (20) Anemia: As above, hemoglobin 9.1, some blood loss anemia, some chronic disease, blood draws (21) Paroxysmal atrial fibrillation: had Afib x 4 hours on AM of 06/12 and also on 06/09 Continue to monitor on telemetry He is not a good candidate for anticoagulation at this time given Hemoccult positive stool and declining hemoglobin It was short-lived continue metoprolol succinate 50mg bid (22) Hyponatremia: Na+ 130 today, unclear why. Making urine, drinking Perhaps SIADH from pain? Ur Na+ and Ur Osm ordered - Na 33 and osm 267, not concentrating urine, doubt SIADH -follow BMP in [place] mentating at baseline not volume overloaded (23) Ventricular tachycardia: had 14 beat run of VT overnight 06/17 metorolol does have low EF, high risk for VT consider ICD if not having CABG will need f/u with Cardiology after discharge (24) DVT prophylaxis: SCDs only given Hemoccult positive stool Disposition - d/c to [facility] Changed CODE STATUS to DNR/DNI, patient filled out advanced directives Total Time Total Time Spent Total Time Spent (In Minutes): 32 Discharge Plan Discharge Items Patient Disposition: Transfer Residential Fac Reason For Visit: Left great toe osteomyelitis, necrotizing fasc Discharge Diagnosis: Left great toe osteomyelitis Left great toe necrotizing fasciitis Severe PAD CAD h/o stroke with carotid stenosis Condition on Discharge: Good Goals: improve strength and mobility Activity: Per Instructions section Weightbearing: Left non-weightbearing Non-emergency contact: Primary Care Provider and Surgeon Call non-emergency contact if: you have any medication questions and you have a fever Follow-up/Referrals: Bright English DO [Surgeon] - (Call to schedule follow-up for 2 weeks postop.) Rodney Mcfarland MD [Primary Care Provider] - Diet: Carb Consistent or DM2 and Low Fat Addtl Attending Provider Instructions: see instructions from orthopedics below for left BKA follow up with Dr. English, [facility] [employer]tl [employer] Consultant Provider Instructions: ACTIVITY RECOMMENDATIONS: Limitations: No weight bearing to affected limb at all times. SPECIAL CARE INSTRUCTIONS: * Some drainage onto the dressing is normal and is no cause for alarm. * Some swelling is natural especially after walking. * When resting, keep your foot elevated above the level of your heart. * Call [facility] if you notice: -Increased drainage -Fever over 101 degrees F -Severe constant pain BANDAGE: * Leave bandage/cast in place unless otherwise directed. * Keep bandage/cast dry at all times. FOLLOW UP VISIT WITH DR. ENGLISH If appointment is not already scheduled: Please call [facility] after you get home today to schedule a follow-up appointment for [address] English at . Pending Studies at Discharge: No Stand-Alone Forms: My [facility] Skilled Items Patient informed of condition?: Yes DNR: Yes Discharge Level of Care: Skilled Communicable Disease: No Discharge Prognosis: Stable Lines: None Urinary Catheter: No Medications and DC Order Prescriptions: New metoprolol succinate 50 mg Tablet Extended Release 24 Hr 50 mg PO BID 30 Days Qty: 60 RF: 3 tamsulosin 0.4 mg Capsule 0.4 mg PO HS 30 Days Qty: 30 RF: 3 lisinopril [Zestril] 5 mg Tablet 5 mg PO QAM 30 Days Qty: 30 RF: 3 oxycodone 5 mg Tablet 5 mg PO Q6 PRN (Reason: pain) 10 Days Qty: 30 RF: 0 pantoprazole 40 mg Tablet,Delayed Release (Dr/Ec) 40 mg PO QAM 30 Days Qty: 30 RF: 0 gabapentin 100 mg Capsule 200 mg PO BID 30 Days Qty: 120 RF: 1 Saccharomyces boulardii [Florastor] 250 mg Capsule 250 mg PO DAILY 30 Days Qty: 30 RF: 0 Continued atorvastatin [Lipitor] 80 mg tablet 80 mg PO HS RF: 0 clopidogrel [Plavix] 75 mg tablet 75 mg PO QAM RF: 0 aspirin [Aspir-81] 81 mg Tablet,Delayed Release (Dr/Ec) 81 mg PO QAM RF: 0 metformin 500 mg tablet extended release 24 hr 1,000 mg PO BIDM RF: 0 folic acid-B npae-W-yryfq-zinc 3-70-15 mg-mcg-mg Tablet 1 tab PO QAM RF: 0 Discontinued lisinopril [Zestril] 20 mg tablet 20 mg PO QAM RF: 0 metoprolol succinate [Toprol XL] 100 mg tablet extended release 24 hr 100 mg PO BIDM RF: 0 Discharge Orders: Discharge Order (Routine); Ordered 06/22/21 Ordered By: Trell Prado/Other Patient Handouts: A1C, Managing Type 2 Diabetes, Special Foot Care for Diabetes Admission Data Admit Date/Time: 06/09/21 14:38 Attending Provider: Trell Vidal Admit Provider: Cody Piedra Primary Care Provider: Rodney Mcfarland Other Providers: Alec Guerrero at [place] ; John Tinsley ; Cody Piedra ; Reji Felipe ; Bright English ; Cha Acuna ; Dr Ben ; Mone Borden ; Michael Calhoun Coding Level of Care Code D/C DAY MANAGEMENT >30 MINS Diagnoses Dry gangrene I96 Sepsis A41.9 PAD (peripheral artery disease) I73.9 Ischemic ulcer of toe of left foot L97.529 Fall W19.XXXA GI bleed K92.2 GI bleed type/associated pathology: unspecified gastrointestinal hemorrhage type Symptomatic anemia D64.9 History of CVA with residual deficit I69.30 Internal carotid artery stent present Z95.828 Elevated troponin I level R77.8 CAD (coronary artery disease), havasupai coronary artery I25.10 Stented coronary artery Z95.5 Diabetes mellitus E13.69 Diabetes mellitus complication status: with other specified complication Diabetes mellitus skilled nursing insulin use: unspecified skilled nursing insulin use status Diabetes mellitus type: other specified (including RODRI) Hyperlipidemia LDL goal <70 E78.5 Ischemic cardiomyopathy I25.5 Fever R50.9 Elevated transaminase level R74.01 Diarrhea R19.7 Urinary retention R33.9 Anemia D64.9 Paroxysmal atrial fibrillation I48.0 Hyponatremia E87.1 Ventricular tachycardia I47.2 DVT prophylaxis Z29.9
== END 2021-06-22 12:28 | DRG 853 ==
LOC: ED 11:53 → 2E 14:38 → SUATTDRO 14:38 → 2E 16:40 → 3N 06-21 18:27

== ENCOUNTER 2021-09-11 10:32 | Inpatient (IN) ==
[2021-09-11 11:59] LABS: Basophils # (auto) 0.03 K/uL (0-0.2); Basophils % (auto) 0.6 %; Eosinophils # (auto) 0.14 K/uL (0-0.5); Eosinophils % (auto) 2.9 %; Hematocrit (blood only) 32.8 % (42-52); Hemoglobin 10.7 g/dL (14.0-18.0); Immature Granulocytes # (auto) 0.01 K/uL (0.00-0.02); Immature Granulocytes % (auto) 0.2 %; Lymphocytes # (auto) 0.75 K/uL (1.2-3.4); Lymphocytes % (auto) 15.5 %; Mean Corpuscular Hemoglobin 28.5 pg (25-34); Mean Corpuscular Hgb Conc 32.6 g/dL (32-36); Mean Corpuscular Volume 87.5 fL (80-100); Mean Platelet Volume 9.4 fL (7.4-10.4); Monocytes # (auto) 0.37 K/uL (0.11-0.59); Monocytes % (auto) 7.7 %; Neutrophils # (auto) 3.53 K/uL (1.4-6.5); Neutrophils % (auto) 73.1 %; Platelet Count 291 K/uL (130-400); RDW Coefficient of Variation 17.5 % (11.5-14.5); RDW Standard Deviation 56.2 fL (36.4-46.3); Red Blood Count 3.75 M/uL (4.7-6.1); White Blood Count 4.83 K/uL (4.8-10.8)
[2021-09-11 12:06] LABS: Albumin Level 3.2 gm/dl (3.4-5.0); BUN Creatinine Ratio 16.2 (10-20); Creatinine Clr Calc Pharmacy 89.2 ml/min; Est GFR (African American) 86.9 ml/min; Magnesium 1.7 mg/dl (1.8-2.4); Potassium 4.7 mmol/L (3.5-5.1)
--- NOTE | 2021-09-11 12:07 | XRay Report ---
SINGLE VIEW CHEST CLINICAL HISTORY: Dyspnea. Edema. FINDINGS: An AP, portable, upright chest radiograph is compared to study dated 06/09/2021. The heart is enlarged. The pulmonary vasculature is noncongested. There are right larger than left pleural effusi ons with bibasilar consolidation. No pneumothorax is seen. The skeletal structures are osteopenic. Th e bony thorax is grossly intact. IMPRESSION: 1. Cardiomegaly without radiographic evidence of congestive failure. 2. There are right larger than left pleural effusions with associated bibasilar consolidation. This l ikely represents atelectasis, and clinical correlation will be required. The effusions are new from . ACT 112: Negative or not required by law. Electronically signed by: Eris Ceballos M.D. 09/11/2021 12:06 PM
[2021-09-11 12:09] LABS: INR 1.2 (0.9-1.1); Partial Thromboplastin Ratio 1.1; Partial Thromboplastin Time 29.1 Seconds (21.0-31.0); Prothrombin Time 11.6 Seconds (9.0-12.0)
[2021-09-11 12:11] LABS: Bilirubin,Total 0.7 mg/dl (0.2-1); Globulin 3.2 gm/dl (2.5-4.0); Total Protein 6.4 gm/dl (6.4-8.2); Troponin I 0.015 ng/ml (0-0.045)
[2021-09-11] MEDS ORDERED: FUROSEMIDE 40 MG/4 ML VIAL IV STA (13:00)
--- NOTE | 2021-09-11 13:03 | Emergency Department Note ---
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 Patient presenting from his facility over the last 2 to 3 days developing dyspnea on exertion. Has noted last week or so increased swelling of the lower extremity on the right as well as his right BKA and into the left arm. Does have some mild residual weakness he reports in the left arm. Denies any significant pain. Denies fevers. Denies significant shortness of breath at rest but worse when he moves. Minimal cough. Denies URI symptoms otherwise. Denies any nausea or significant abdominal pain. Has noted some swelling into the abdomen. Patient states he has been undergoing wound care for his BKA which has been doing well as well as a small ulcer on the heel of his right foot. REVIEW OF SYSTEMS: A total of 10 review of systems was obtained and negative except as stated above in the HPI. PAST MEDICAL HISTORY: As noted above MEDICATIONS: Reviewed medication list from the facility includes aspirin Plavix. Not on diuretics. SOCIAL HISTORY: Resides at [facility] PHYSICAL EXAM: GENERAL: alert and oriented in no acute distress on stretcher Head: normocephalic and atraumatic EYES: No injection, discharge or icterus. NECK: Trachea midline. Supple. ENT: Mucous membranes pink and moist. LUNGS: Airway patent. No retractions. Breath sounds clear with crackles in the bilateral bases HEART: Regular rate and rhythm. No chest wall tenderness ABDOMEN: Soft and non-tender, without guarding or rebound. There is edema noted in the subcutaneous abdominal wall to the mid abdomen. SKIN: Acyanotic, warm, dry EXTREMITIES: Edema 2-3+ in the left upper extremity below the left upper arm as well as 2+ edema of the right lower extremity. Some mild edema surrounding a left BKA is present without significant wounds here. There is a small approximately 2 x 3 cm right heel wound that appears granulated without signif icant crepitus or surrounding erythema. The right upper extremities with minimal/trace edema. NEUROLOGICAL: No aphasia. No facial droop or slurred speech. Moving all extremities with some decreased strength and tone in the left upper extremity. EK beats minute sinus rhythm first-degree AV block. No PVC or PAC. No acute ST segment elevation or depression noted. QTc 456. CONTINUOUS CARDIAC MONITORING: was ordered and showed a heart rate of 60-80s bpm in NSR Patient's laboratory studies and imaging reviewed. Differential includes Reactive airway disease, pneumonia, pneumothorax, COPD, CHF, infections, cardiac ischemia, pulmonary embolism, musculoskeletal, gastrointestinal, as well as other pathologies. IMPRESSION/MEDICAL DECISION MAKING: Patient appears to have diffuse swelling including into the abdomen. Dyspnea on exertion reported. Not hypoxic on room air. BMP without significant abnormality. BNP elevated. No chest x-ray with evidence of pleural effusions and bibasal atelectasis. No real infectious symptoms reported and doubt this is bacterial. Reported history of cardiomyopathy. Believe significant fluid overload is occurring. Records show a decreased EF of 30 to 35%. Mild hypomagnesemia noted. Magnesium supplementation was ordered as well as a dose of IV Lasix to help with diuresis. Renal function appears stable. Lower suspicion at this time that this is acute PE given the significant diffuse edema noted. Believe given the significant amount of edema monitored diuresis the hospital would be recommended. Hospitalist contacted. DIAGNOSIS: CHF exacerbation, fluid overload, dyspnea on exertion, hypomagnesemia DISPOSITION: Hospitalist will evaluate Patient was agreeable with this plan. Past Med/Surg History Medical History Anemia CAD (coronary artery disease), [place] coronary artery 02/12/2021: PCI with HERNANDEZ to the distal left main and proximal LAD. Additional distal LAD disease. Large non dominant left circumflex with moderate diffuse disease. Long subtotal occlusion of the distal vessel. Large dominant RCA with focal 70-80% lesion in the mid vessel. Diffuse [id number] distal disease. Diabetes mellitus Elevated troponin I level Family history non-contributory History of CVA with residual deficit History of left below knee amputation Hyperlipidemia LDL goal <70 Ischemic cardiomyopathy LBBB (left bundle branch block) Mitral regurgitation Paroxysmal atrial fibrillation Peripheral vascular disease Symptomatic anemia Surgical History History of coronary artery stent placement History of right common carotid artery stent placement Status post below-knee amputation of left lower extremity Dr English 06/2021 Family History Other Diabetes Social History Smoking Status: Former smoker Hx Alcohol Use: Yes Alcohol type: beer Alcohol Intake Frequency: Monthly or Less Hx Substance Use: No Preferred Language: Senegalese Communication Ability: Effective Visual Impairment: Limited Hearing Ability: Normal Short Goods Drier Required: No Beliefs That Will Affect Care: None marital status: Single Current Living Situation: Alone and Personal Care Facility Current Living Situation Comment: [facility] current occupational status: retired Feels Safe at Home: Yes Assistive Devices: None Allergies Allergies Allergy/AdvReac Type Severity Reaction Status Date / Time No Known Allergies Allergy Verified 09/11/21 11:13 Home Meds Home Medications Medication Instructions Recorded Confirmed aspirin 81 mg tablet,delayed 81 mg PO QAM 06/09/21 09/11/21 release atorvastatin 80 mg tablet (Lipitor) 80 mg PO HS 06/09/21 09/11/21 clopidogrel 75 mg tablet (Plavix) 75 mg PO QAM 06/09/21 09/11/21 folic acid 3 mg-vit B complex with 1 tab PO QAM 06/09/21 09/11/21 C-selenium 70 mcg-zinc 15 mg tablet metoprolol succinate 50 mg 50 mg PO DAILY tab 08/24/21 09/11/21 tablet,extended release 24 hr ferrous sulfate 325 mg (65 mg 325 mg PO TID 09/11/21 09/11/21 iron) tablet metformin 850 mg tablet 850 mg PO BID 09/11/21 09/11/21 pantoprazole 40 mg tablet,delayed 40 mg PO DAILY 09/11/21 09/11/21 release Previous Rx's Medication Instructions Recorded gabapentin 100 mg capsule 200 mg PO BID 30 Days #120 cap 06/22/21 lisinopril 5 mg tablet (Zestril) 5 mg PO QAM 30 Days #30 tab 06/22/21 tamsulosin 0.4 mg capsule 0.4 mg PO HS 30 Days #30 cap 06/22/21 Results & Data (ED) Vital Signs Vital Signs - 24 hr 09/11/21 10:45 09/11/21 10:56 09/11/21 11:00 Temperature 36.7 C Temperature Source Oral Pulse Rate 77 76 76 Pulse Rate [Apical] Pulse Rate from SpO2 Sensor 80 77 Pulse Rhythm Regular Pulse Rhythm [Apical] Pulse Strength Normal Pulse Strength [Apical] Respiratory Rate 18 17 12 Respiratory Effort / Characteristics Non-Labored Spontaneous Labored Respiratory Depth Normal Respiratory Pattern Blood Pressure 172/118 H Blood Pressure [Right Arm] Blood Pressure Mean 136 Blood Pressure Mean [Right Arm] Blood Pressure Position Sitting Blood Pressure Position [Right Arm] Pulse Oximetry 100 100 100 Oxygen Delivery Method Room Air Sepsis Recent Fever Within 48 Hours No Sepsis New/Unexplained Change in Mental Status No Sepsis Action Taken by Nursing No Action Required 09/11/21 11:10 09/11/21 11:20 09/11/21 11:30 Temperature Temperature Source Pulse Rate 75 74 73 Pulse Rate [Apical] Pulse Rate from SpO2 Sensor 74 73 Pulse Rhythm Pulse Rhythm [Apical] Pulse Strength Pulse Strength [Apical] Respiratory Rate 17 18 16 Respiratory Effort / Characteristics Respiratory Depth Respiratory Pattern Blood Pressure Blood Pressure [Right Arm] Blood Pressure Mean Blood Pressure Mean [Right Arm] Blood Pressure Position Blood Pressure Position [Right Arm] Pulse Oximetry 100 99 Oxygen Delivery Method Sepsis Recent Fever Within 48 Hours Sepsis New/Unexplained Change in Mental Status Sepsis Action Taken by Nursing 09/11/21 11:40 09/11/21 11:50 09/11/21 12:00 Temperature Temperature Source Pulse Rate 73 78 75 Pulse Rate [Apical] Pulse Rate from SpO2 Sensor 73 78 75 Pulse Rhythm Pulse Rhythm [Apical] Pulse Strength Pulse Strength [Apical] Respiratory Rate 8 L 19 17 Respiratory Effort / Characteristics Respiratory Depth Respiratory Pattern Blood Pressure Blood Pressure [Right Arm] Blood Pressure Mean Blood Pressure Mean [Right Arm] Blood Pressure Position Blood Pressure Position [Right Arm] Pulse Oximetry 100 99 100 Oxygen Delivery Method Sepsis Recent Fever Within 48 Hours Sepsis New/Unexplained Change in Mental Status Sepsis Action Taken by Nursing 09/11/21 12:10 09/11/21 12:20 09/11/21 12:21 Temperature Temperature Source Pulse Rate 75 73 Pulse Rate [Apical] 74 Pulse Rate from SpO2 Sensor 75 74 Pulse Rhythm Pulse Rhythm [Apical] Regular Pulse Strength Pulse Strength [Apical] Normal Respiratory Rate 17 16 18 Respiratory Effort / Characteristics Non-Labored Spontaneous Respiratory Depth Normal Respiratory Pattern Blood Pressure 163/106 H Blood Pressure [Right Arm] 163/106 H Blood Pressure Mean 125 Blood Pressure Mean [Right Arm] 125 Blood Pressure Position Blood Pressure Position [Right Arm] Sitting Pulse Oximetry 99 100 100 Oxygen Delivery Method Room Air Sepsis Recent Fever Within 48 Hours Sepsis New/Unexplained Change in Mental Status Sepsis Action Taken by Nursing 09/11/21 12:23 09/11/21 12:30 09/11/21 12:40 Temperature Temperature Source Pulse Rate 77 76 Pulse Rate [Apical] Pulse Rate from SpO2 Sensor 77 76 Pulse Rhythm Pulse Rhythm [Apical] Pulse Strength Pulse Strength [Apical] Respiratory Rate 13 0 L Respiratory Effort / Characteristics Respiratory Depth Respiratory Pattern Blood Pressure Blood Pressure [Right Arm] Blood Pressure Mean Blood Pressure Mean [Right Arm] Blood Pressure Position Blood Pressure Position [Right Arm] Pulse Oximetry 100 93 99 Oxygen Delivery Method Room Air Sepsis Recent Fever Within 48 Hours Sepsis New/Unexplained Change in Mental Status Sepsis Action Taken by Nursing 09/11/21 12:50 09/11/21 13:00 09/11/21 13:10 Temperature Temperature Source Pulse Rate 76 77 77 Pulse Rate [Apical] Pulse Rate from SpO2 Sensor 74 77 76 Pulse Rhythm Pulse Rhythm [Apical] Pulse Strength Pulse Strength [Apical] Respiratory Rate 2 L 14 16 Respiratory Effort / Characteristics Respiratory Depth Respiratory Pattern Blood Pressure Blood Pressure [Right Arm] Blood Pressure Mean Blood Pressure Mean [Right Arm] Blood Pressure Position Blood Pressure Position [Right Arm] Pulse Oximetry 99 99 100 Oxygen Delivery Method Sepsis Recent Fever Within 48 Hours Sepsis New/Unexplained Change in Mental Status Sepsis Action Taken by Nursing 09/11/21 13:20 09/11/21 13:30 09/11/21 13:36 Temperature Temperature Source Pulse Rate 76 74 Pulse Rate [Apical] 95 H Pulse Rate from SpO2 Sensor 76 74 Pulse Rhythm Pulse Rhythm [Apical] Regular Pulse Strength Pulse Strength [Apical] Normal Respiratory Rate 18 14 20 Respiratory Effort / Characteristics Non-Labored Spontaneous Respiratory Depth Normal Respiratory Pattern Blood Pressure Blood Pressure [Right Arm] 156/110 H Blood Pressure Mean Blood Pressure Mean [Right Arm] 125 Blood Pressure Position Blood Pressure Position [Right Arm] Sitting Pulse Oximetry 100 99 95 Oxygen Delivery Method Room Air Sepsis Recent Fever Within 48 Hours Sepsis New/Unexplained Change in Mental Status Sepsis Action Taken by Nursing 09/11/21 13:40 09/11/21 13:50 09/11/21 14:00 Temperature Temperature Source Pulse Rate 85 77 75 Pulse Rate [Apical] Pulse Rate from SpO2 Sensor 89 78 76 Pulse Rhythm Pulse Rhythm [Apical] Pulse Strength Pulse Strength [Apical] Respiratory Rate 21 18 9 L Respiratory Effort / Characteristics Respiratory Depth Respiratory Pattern Blood Pressure 157/105 H Blood Pressure [Right Arm] Blood Pressure Mean 122 Blood Pressure Mean [Right Arm] Blood Pressure Position Blood Pressure Position [Right Arm] Pulse Oximetry 95 100 100 Oxygen Delivery Method Sepsis Recent Fever Within 48 Hours Sepsis New/Unexplained Change in Mental Status Sepsis Action Taken by Nursing 09/11/21 14:10 09/11/21 14:20 09/11/21 14:30 Temperature Temperature Source Pulse Rate 68 72 76 Pulse Rate [Apical] Pulse Rate from SpO2 Sensor 74 72 77 Pulse Rhythm Pulse Rhythm [Apical] Pulse Strength Pulse Strength [Apical] Respiratory Rate 7 L 12 18 Respiratory Effort / Characteristics Respiratory Depth Respiratory Pattern Blood Pressure Blood Pressure [Right Arm] Blood Pressure Mean Blood Pressure Mean [Right Arm] Blood Pressure Position Blood Pressure Position [Right Arm] Pulse Oximetry 100 98 96 Oxygen Delivery Method Sepsis Recent Fever Within 48 Hours Sepsis New/Unexplained Change in Mental Status Sepsis Action Taken by Nursing 09/11/21 14:40 09/11/21 15:45 09/11/21 15:46 Temperature Temperature Source Pulse Rate 74 75 Pulse Rate [Apical] 74 Pulse Rate from SpO2 Sensor 74 Pulse Rhythm Pulse Rhythm [Apical] Regular Pulse Strength Pulse Strength [Apical] Normal Respiratory Rate 13 20 Respiratory Effort / Characteristics Non-Labored Spontaneous Respiratory Depth Normal Respiratory Pattern Regular Blood Pressure Blood Pressure [Right Arm] 150/92 H Blood Pressure Mean Blood Pressure Mean [Right Arm] 111 Blood Pressure Position Blood Pressure Position [Right Arm] Sitting Pulse Oximetry 100 98 Oxygen Delivery Method Room Air Sepsis Recent Fever Within 48 Hours Sepsis New/Unexplained Change in Mental Status Sepsis Action Taken by Nursing 09/11/21 15:50 09/11/21 16:00 09/11/21 16:10 Temperature Temperature Source Pulse Rate 75 76 76 Pulse Rate [Apical] Pulse Rate from SpO2 Sensor 74 75 76 Pulse Rhythm Pulse Rhythm [Apical] Pulse Strength Pulse Strength [Apical] Respiratory Rate 13 14 12 Respiratory Effort / Characteristics Respiratory Depth Respiratory Pattern Blood Pressure 155/82 H Blood Pressure [Right Arm] Blood Pressure Mean 106 Blood Pressure Mean [Right Arm] Blood Pressure Position Blood Pressure Position [Right Arm] Pulse Oximetry 99 97 97 Oxygen Delivery Method Sepsis Recent Fever Within 48 Hours Sepsis New/Unexplained Change in Mental Status Sepsis Action Taken by Nursing 09/11/21 16:20 09/11/21 16:30 09/11/21 16:40 Temperature Temperature Source Pulse Rate 77 78 77 Pulse Rate [Apical] Pulse Rate from SpO2 Sensor 77 78 76 Pulse Rhythm Pulse Rhythm [Apical] Pulse Strength Pulse Strength [Apical] Respiratory Rate 13 15 12 Respiratory Effort / Characteristics Respiratory Depth Respiratory Pattern Blood Pressure 152/98 H Blood Pressure [Right Arm] Blood Pressure Mean 116 Blood Pressure Mean [Right Arm] Blood Pressure Position Blood Pressure Position [Right Arm] Pulse Oximetry 95 95 97 Oxygen Delivery Method Sepsis Recent Fever Within 48 Hours Sepsis New/Unexplained Change in Mental Status Sepsis Action Taken by Nursing 09/11/21 16:50 09/11/21 17:00 09/11/21 17:10 Temperature Temperature Source Pulse Rate 82 80 78 Pulse Rate [Apical] Pulse Rate from SpO2 Sensor 82 81 78 Pulse Rhythm Pulse Rhythm [Apical] Pulse Strength Pulse Strength [Apical] Respiratory Rate 14 18 13 Respiratory Effort / Characteristics Respiratory Depth Respiratory Pattern Blood Pressure 170/100 H Blood Pressure [Right Arm] Blood Pressure Mean 123 Blood Pressure Mean [Right Arm] Blood Pressure Position Blood Pressure Position [Right Arm] Pulse Oximetry 98 96 96 Oxygen Delivery Method Sepsis Recent Fever Within 48 Hours Sepsis New/Unexplained Change in Mental Status Sepsis Action Taken by Nursing 09/11/21 17:20 09/11/21 17:30 09/11/21 18:31 Temperature Temperature Source Pulse Rate 78 79 80 Pulse Rate [Apical] Pulse Rate from SpO2 Sensor 78 79 80 Pulse Rhythm Pulse Rhythm [Apical] Pulse Strength Pulse Strength [Apical] Respiratory Rate 12 12 19 Respiratory Effort / Characteristics Respiratory Depth Respiratory Pattern Blood Pressure 148/89 H 159/106 H Blood Pressure [Right Arm] Blood Pressure Mean 108 123 Blood Pressure Mean [Right Arm] Blood Pressure Position Blood Pressure Position [Right Arm] Pulse Oximetry 96 95 96 Oxygen Delivery Method Sepsis Recent Fever Within 48 Hours Sepsis New/Unexplained Change in Mental Status Sepsis Action Taken by Nursing Laboratory Data Result diagrams: 09/11/21 11:15 09/11/21 11:15 Lab Results 09/11/21 09/11/21 09/11/21 Range/Units 11:15 11:15 11:15 WBC 4.83 (4.8-10.8) K/uL RBC 3.75 L (4.7-6.1) M/uL Hgb 10.7 L (14.0-18.0) g/dL Hct 32.8 L (42-52) % MCV 87.5 (80-100) fL MCH 28.5 (25-34) pg MCHC 32.6 (32-36) g/dL RDW Std Deviation 56.2 H (36.4-46.3) fL RDW Coeff of Vel 17.5 H (11.5-14.5) % Plt Count 291 (130-400) K/uL MPV 9.4 (7.4-10.4) fL Immature Gran % (Auto) 0.2 % Neut % (Auto) 73.1 % Lymph % (Auto) 15.5 % [place] % (Auto) 7.7 % Eos % (Auto) 2.9 % Baso % (Auto) 0.6 % Neut # (Auto) 3.53 (1.4-6.5) K/uL Lymph # (Auto) 0.75 L (1.2-3.4) K/uL [place] # (Auto) 0.37 (0.11-0.59) K/uL Eos # (Auto) 0.14 (0-0.5) K/uL Baso # (Auto) 0.03 (0-0.2) K/uL Immature Gran # (Auto) 0.01 (0.00-0.02) K/uL PT 11.6 (9.0-12.0) Seconds INR 1.2 H (0.9-1.1) APTT 29.1 (21.0-31.0) Seconds PTT Ratio 1.1 Sodium 139 (136-145) mmol/L Potassium 4.7 (3.5-5.1) mmol/L Chloride 106 (98-107) mmol/L Carbon Dioxide 26 (21-32) mmol/L Anion Gap 7.0 (3-11) BUN 16 (7-18) mg/dl Creatinine 1.01 (0.6-1.4) mg/dl Est Cr Clr Drug Dosing 89.2 ml/min Est GFR ( Amer) 86.9 ml/min Est GFR (Non-Af Amer) 75.0 ml/min BUN/Creatinine Ratio 16.2 (10-20) Glucose 154 H (70-99) mg/dl Calcium 9.0 (8.5-10.1) mg/dl Magnesium 1.7 L (1.8-2.4) mg/dl Total Bilirubin 0.7 (0.2-1) mg/dl AST 30 (15-37) U/L ALT 37 (12-78) U/L Alkaline Phosphatase 266 H (45-117) U/L Troponin I 0.015 (0-0.045) ng/ml NT-Pro-B Natriuret Pep 86757 H (0-900) pg/ml Total Protein 6.4 (6.4-8.2) gm/dl Albumin 3.2 L (3.4-5.0) gm/dl Globulin 3.2 (2.5-4.0) gm/dl Albumin/Globulin Ratio 1.0 (0.9-2) TSH (0.300-4.500) uIu/ml COVID-19 Eval Order SARS-CoV-2 (PCR) (Negative) 09/11/21 09/11/21 09/11/21 Range/Units 11:15 12:10 12:10 WBC (4.8-10.8) K/uL RBC (4.7-6.1) M/uL Hgb (14.0-18.0) g/dL Hct (42-52) % MCV (80-100) fL MCH (25-34) pg MCHC (32-36) g/dL RDW Std Deviation (36.4-46.3) fL RDW Coeff of Vel (11.5-14.5) % Plt Count (130-400) K/uL MPV (7.4-10.4) fL Immature Gran % (Auto) % Neut % (Auto) % Lymph % (Auto) % [place] % (Auto) % Eos % (Auto) % Baso % (Auto) % Neut # (Auto) (1.4-6.5) K/uL Lymph # (Auto) (1.2-3.4) K/uL [place] # (Auto) (0.11-0.59) K/uL Eos # (Auto) (0-0.5) K/uL Baso # (Auto) (0-0.2) K/uL Immature Gran # (Auto) (0.00-0.02) K/uL PT (9.0-12.0) Seconds INR (0.9-1.1) APTT (21.0-31.0) Seconds PTT Ratio Sodium (136-145) mmol/L Potassium (3.5-5.1) mmol/L Chloride (98-107) mmol/L Carbon Dioxide (21-32) mmol/L Anion Gap (3-11) BUN (7-18) mg/dl Creatinine (0.6-1.4) mg/dl Est Cr Clr Drug Dosing ml/min Est GFR ( Amer) ml/min Est GFR (Non-Af Amer) ml/min BUN/Creatinine Ratio (10-20) Glucose (70-99) mg/dl Calcium (8.5-10.1) mg/dl Magnesium (1.8-2.4) mg/dl Total Bilirubin (0.2-1) mg/dl AST (15-37) U/L ALT (12-78) U/L Alkaline Phosphatase (45-117) U/L Troponin I (0-0.045) ng/ml NT-Pro-B Natriuret Pep (0-900) pg/ml Total Protein (6.4-8.2) gm/dl Albumin (3.4-5.0) gm/dl Globulin (2.5-4.0) gm/dl Albumin/Globulin Ratio (0.9-2) TSH 1.590 (0.300-4.500) uIu/ml COVID-19 Eval Order Covid19 at [facility] SARS-CoV-2 (PCR) NEGATIVE (Negative) Administered Medications Discontinued Medications Furosemide (Furosemide 40 Mg/4 Ml Vial) 60 mg IV NOW STA Stop: 09/11/21 13:01 Last Admin: 09/11/21 13:18 Dose: 60 mg Documented by: [id number] Magnesium Sulfate/Dextrose (Magnesium Sulfate / D5w) 1 gm in 100 mls @ 200 mls/hr IV Q30M REESE Stop: 09/11/21 13:59 Last Admin: 09/11/21 14:30 Dose: 200 mls/hr Documented by: [id number] Infusion: 09/11/21 13:49 Dose: 200 mls/hr Documented by: [id number] Admin: 09/11/21 13:19 Dose: 200 mls/hr Documented by: [id number] Nitroglycerin (Nitroglycerin 2% Ointment 30gm Tube) 1 inch EXT NOW ONE Stop: 09/11/21 14:40 Last Admin: 09/11/21 15:46 Dose: 1 inch Documented by: [id number] Imaging Data Radiologist's Impression: Chest X-Ray 09/11/21 11:51 SINGLE VIEW CHEST CLINICAL HISTORY: Dyspnea. Edema. FINDINGS: An AP, portable, upright chest radiograph is compared to study dated 06/09/2021. The heart is enlarged. The pulmonary vasculature is noncongested. There are right larger than left pleural effusions with bibasilar consolidation. No pneumothorax is seen. The skeletal structures are osteopenic. The bony thorax is grossly intact. IMPRESSION: 1. Cardiomegaly without radiographic evidence of congestive failure. 2. There are right larger than left pleural effusions with associated bibasilar consolidation. This likely represents atelectasis, and clinical correlation will be required. The effusions are new from 06/09/2021. ACT 112: Negative or not required by law. Electronically signed by: Eris Ceballos M.D. 09/11/2021 12:06 PM Extremity Venous Study 09/11/21 14:23 US venous doppler UE LT HISTORY: 71 years-old Male edema acute pain and swelling of the left upper extremity COMPARISON: None TECHNIQUE: Multiple real-time sonographic images of the left upper extremity deep venous structures were obtained assessing grayscale appearance, color and spectral flow FINDINGS: Normal flow and phasicity of the left upper extremity deep venous structures. Mild subcutaneous edema. IMPRESSION: No sonographic evidence of deep venous thrombosis. ACT 112: Negative or not required by law. The above report was generated using voice recognition software. It may contain grammatical, syntax or spelling errors. Electronically signed by: Edilberto Foy M.D. 09/11/2021 3:23 PM Venous Doppler Study 09/11/21 15:26 BILATERAL LOWER EXTREMITY VENOUS DOPPLER CLINICAL HISTORY: edema COMPARISON STUDY: No previous studies for comparison. TECHNIQUE: Sonography of the deep venous system of the bilateral lower extremities was performed. Compression and augmentation were evaluated. FINDINGS: The bilateral common femoral, superficial femoral and popliteal veins were compressible. Augmentation was normal. Flow was shown within the deep calf vessels of the right leg. Right below the knee amputation is present. Subcutaneous edema is noted within the lower extremities. IMPRESSION: No evidence of deep venous thrombus within the bilateral lower extremities. ACT 112: Negative or not required by law. Electronically signed by: Joaquim Lopez M.D. 09/11/2021 6:26 PM Discharge Plan Visit Data Chief Complaint: Shortness of Breath/Dyspnea Stated Complaint: SOB ED Provider: Kirit Baxter Discharge Problem: ADLER (dyspnea on exertion), Ischemic cardiomyopathy, Hypomagnesemia, Generalized edema due to fluid overload Patient Disposition: Admitted As Inpatient Forms Stand Alone Forms: My [facility] Prescriptions Prescriptions: No Action metoprolol succinate 50 mg tablet extended release 24 hr 50 mg PO DAILY RF: 0 atorvastatin [Lipitor] 80 mg tablet 80 mg PO HS RF: 0 clopidogrel [Plavix] 75 mg tablet 75 mg PO QAM RF: 0 aspirin 81 mg Tablet,Delayed Release (Dr/Ec) 81 mg PO QAM RF: 0 folic acid-B [id number] 3-70-15 mg-mcg-mg Tablet 1 tab PO QAM RF: 0 tamsulosin 0.4 mg Capsule 0.4 mg PO HS 30 Days Qty: 30 RF: 3 lisinopril [Zestril] 5 mg Tablet 5 mg PO QAM 30 Days Qty: 30 RF: 3 gabapentin 100 mg Capsule 200 mg PO BID 30 Days Qty: 120 RF: 1 metformin 850 mg Tablet 850 mg PO BID RF: 0 pantoprazole 40 mg Tablet,Delayed Release (Dr/Ec) 40 mg PO DAILY RF: 0 ferrous sulfate 325 mg (65 mg iron) Tablet 325 mg PO TID RF: 0 Referrals Referrals: [facility] MACIEL [Primary Care Provider] -
[2021-09-11] MEDS: MAGNESIUM SULFATE / D5W 1 GM/100 ML BAG IV SCH ×2 (13:19→14:30)
--- NOTE | 2021-09-11 14:23 | History & Physical Report ---
Date of Service September 11, 2021 Assessment & Plan (1) Acute on chronic HFrEF (heart failure with reduced ejection fraction): (2) Ischemic cardiomyopathy: (3) CAD (coronary artery disease), [place] coronary artery: (4) Diabetes mellitus: (5) HTN (hypertension): (6) Hypomagnesemia: (7) Surgical wound, non healing: (8) Diabetic ulcer of right heel: (9) Hyperlipidemia LDL goal <70: (10) Carotid stenosis: (11) History of CVA with residual deficit: Plan: This is a 71-year-old male who has significant past medical history of CAD with history of HERNANDEZ x3 to distal main and LAD 01/2021, chronic HFrEF EF 30 to 35%, moderate MR, history of right carotid artery stenosis status post stent placement, history of PAD and dry gangrene to left great toe and 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 Acute on chronic HFrEF Ischemic cardiomyopathy CAD History of HERNANDEZ x3 01/2021, recommendation was CABG and patient declined Admit to PCU Received 60 mg IV Lasix in ED, producing significant output -1350 Consult cardiology -will defer further diuretic dosing Obtain repeat echocardiogram-last June 2021 revealed EF 30 to 35%, LV dilated, grade 2 diastolic dysfunction, LA mildly dilated, RVSP 30 to 40 mmHg Strict I's and O's, daily weights Heart healthy, low-sodium diet, fluid restrict 1800 mL Continue ASA, Plavix, statin, metoprolol and lisinopril Patient presented with significant hypertension, consider increase in lisinopril if persists T2DM Last A1c 06/10/2021 7.4, repeat in a.m. 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 English 06/2021 Nonhealing surgical wound to left BKA Right heel wound Consult wound care Hyperlipidemia Continue statin History of CVA with residual left-sided weakness Right internal carotid artery stenosis Continue ASA and statin Status post stent to right internal carotid artery DVT ppx: Lovenox Dispo: PCU PCP: Howard FULL CODE Pt was seen and examined in collaboration with Dr. Loco, please see addendum History of Present Illness Chief Complaint: SOB x 2-3 days. 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 He currently resides at [facility]. He has noted himself getting increasingly short of breath and this morning he was orthopneic. He also notes left upper extremity swelling which is new per pt, b/l lower ext swelling and abdominal distension. He does not weigh himself on a regular basis secondary to his BKA a nd limited mobility therefore he is unsure if he gained weight. He denies any fever, chills, sweats, lightheadedness, dizziness, chest pain, PND, nausea, vomiting, abdominal pain, last bowel movement was yesterday. He does complain of a dry cough which has been present for 2-3 days. In ED he underwent chest x-ray which reviewed bilateral pleural effusions right greater than left, elevated proBNP and significant hypertension. Patient was felt to be suffering from acute decompensation of HFrEF in the setting of ischemic cardiomyopathy. He received 60 mg of IV Lasix and has had 400 mL output thus far. His mag was low and this was replaced. His brother is at bedside. 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 He declines CABG intervention in regards to his CAD. Allergies Allergy/AdvReac Type Severity Reaction Status Date / Time No Known Allergies Allergy Verified 09/11/21 11:13 Home Medications Medication Instructions Recorded Confirmed Type aspirin 81 mg tablet,delayed 81 mg PO QAM 06/09/21 09/11/21 History release atorvastatin 80 mg tablet (Lipitor) 80 mg PO HS 06/09/21 09/11/21 History clopidogrel 75 mg tablet (Plavix) 75 mg PO QAM 06/09/21 09/11/21 History folic acid 3 mg-vit B complex with 1 tab PO QAM 06/09/21 09/11/21 History C-selenium 70 mcg-zinc 15 mg tablet gabapentin 100 mg capsule 200 mg PO BID 30 Days #120 cap 06/22/21 09/11/21 Rx lisinopril 5 mg tablet (Zestril) 5 mg PO QAM 30 Days #30 tab 06/22/21 09/11/21 Rx tamsulosin 0.4 mg capsule 0.4 mg PO HS 30 Days #30 cap 06/22/21 09/11/21 Rx metoprolol succinate 50 mg 50 mg PO DAILY tab 08/24/21 09/11/21 History tablet,extended release 24 hr ferrous sulfate 325 mg (65 mg 325 mg PO TID 09/11/21 09/11/21 History iron) tablet metformin 850 mg tablet 850 mg PO BID 09/11/21 09/11/21 History pantoprazole 40 mg tablet,delayed 40 mg PO DAILY 09/11/21 09/11/21 History release Past Med/Surg History Medical History Anemia CAD (coronary artery disease), [place] coronary artery 02/12/2021: PCI with HERNANDEZ to the distal left main and proximal LAD. Additi onal distal LAD disease. Large non dominant left circumflex with moderate diffuse disease. Long subtotal occlusion of the distal vessel. Large dominant RCA with focal 70-80% lesion in the mid vessel. Diffuse sghg-cv-[id number] distal disease. Diabetes mellitus Elevated troponin I level Family history non-contributory History of CVA with residual deficit History of left below knee amputation Hyperlipidemia LDL goal <70 Ischemic cardiomyopathy LBBB (left bundle branch block) Mitral regurgitation Paroxysmal atrial fibrillation Peripheral vascular disease Symptomatic anemia Surgical History History of coronary artery stent placement History of right common carotid artery stent placement Status post below-knee amputation of left lower extremity Dr English 06/2021 Family History Other Diabetes Social History Smoking Status: Former smoker Hx Alcohol Use: Yes Alcohol type: beer Alcohol Intake Frequency: Monthly or Less Hx Substance Use: No Preferred Language: Cambodian Communication Ability: Effective Visual Impairment: Limited Hearing Ability: Normal Unleavened Dough Mixer Required: No Beliefs That Will Affect Care: None marital status: Single Current Living Situation: Alone and Personal Care Facility Current Living Situation Comment: [email or web address] current occupational status: retired Feels Safe at Home: Yes Assistive Devices: None Review of Systems Review of Systems: All systems reviewed & are unremarkable except as noted in HPI & below Physical Exam Physical Exam: Constitutional: WD/WN, chronically ill appearing male, vitals as above, NAD, sitting up in bed, pleasant, conversing easily Head: Normocephalic, Atraumatic Eyes: PERRL, conjunctivae normal, anicteric sclerae ENMT: external ear and nose normal, oropharynx normal Neck: trachea midline, no thyromegaly normal visual inspection Respiratory: normal respiratory effort, lungs clear to auscultation, no wheeze, rales, rhonchi. Normal insp/exp effort, no accessory muscle use Cardiovascular: RRR, no murmur, +3 lower ext pitting edema, L BKA with dressing in place, edema extending to proximal thigh and abd wall, LUE swelling Vessels: no JVD or carotid bruit Chest: normal inspection of chest Abdomen: obese abd, normal bowel sounds, soft, nontender, no hepatosplenomegaly Musculoskeletal: no cyanosis or clubbing, extremities motor strength 5/5, L BKA Skin: no rashes, warm and dry normal turgor Neurologic: PERRL, EOMI, accommodation nl, no face palsy, no dysarthria CN's II-XI intact bilaterally and moves all extremities Psychiatric: A+Ox3, euthymic affect Lymphatic: no cervical or axillary lymphadenopathy : clear yellow urine noted in urinal Results & Data Results & Data ([facility]) Vital Signs (Past 12 Hours) Vital Signs Temp Pulse Pulse Resp BP BP Pulse Ox 09/11/21 13:36 95 H 20 156/110 H 95 09/11/21 12:23 100 09/11/21 12:21 74 18 163/106 H 100 09/11/21 10:45 36.7 C 77 18 172/118 H 100 Diagnostic Findings Chest X-Ray 09/11/21 11:51 SINGLE VIEW CHEST CLINICAL HISTORY: Dyspnea. Edema. FINDINGS: An AP, portable, upright chest radiograph is compared to study dated 06/09/2021. The heart is enlarged. The pulmonary vasculature is noncongested. There are right larger than left pleural effusions with bibasilar consolidation. No pneumothorax is seen. The skeletal structures are osteopenic. The bony thorax is grossly intact. IMPRESSION: 1. Cardiomegaly without radiographic evidence of congestive failure. 2. There are right larger than left pleural effusions with associated bibasilar consolidation. This likely represents atelectasis, and clinical correlation will be required. The effusions are new from 06/09/2021. ACT 112: Negative or not required by law. Electronically signed by: Eris Ceballos M.D. 09/11/2021 12:06 PM Medications Administered Medication List Discontinued Medications Furosemide (Furosemide 40 Mg/4 Ml Vial) 60 mg IV NOW STA Stop: 09/11/21 13:01 Last Admin: 09/11/21 13:18 Dose: 60 mg Documented by: [id number] Magnesium Sulfate/Dextrose (Magnesium Sulfate / D5w) 1 gm in 100 mls @ 200 mls/hr IV Q30M REESE Stop: 09/11/21 13:59 Last Admin: 09/11/21 13:19 Dose: 200 mls/hr Documented by: [id number] ECG Rhythm: normal sinus Findings: + 1st degree AV block Additional Comments: qtc 456ms COVID-19 Results Results COVID-19 Adm Lab Results: RBC 3.75 M/uL (4.7-6.1) L 09/11/21 WBC 4.83 K/uL (4.8-10.8) 09/11/21 Hgb 10.7 g/dL (14.0-18.0) L 09/11/21 Hct 32.8 % (42-52) L 09/11/21 Plt Count 291 K/uL (130-400) 09/11/21 Neutrophils (%) (Auto) 73.1 % 09/11/21 Lymphocytes (%) (Auto) 15.5 % 09/11/21 Monocytes # (Auto) 0.37 K/uL (0.11-0.59) 09/11/21 Eosinophils # (Auto) 0.14 K/uL (0-0.5) 09/11/21 Immature Granulocyte % (Auto) 0.2 % 09/11/21 Neutrophils # (Auto) 3.53 K/uL (1.4-6.5) 09/11/21 Lymphocytes # (Auto) 0.75 K/uL (1.2-3.4) L 09/11/21 Monocytes # (Auto) 0.37 K/uL (0.11-0.59) 09/11/21 Eosinophils # (Auto) 0.14 K/uL (0-0.5) 09/11/21 Basophils # (Auto) 0.03 K/uL (0-0.2) 09/11/21 Immature Granulocyte # (Auto) 0.01 K/uL (0.00-0.02) 09/11/21 Na 139 mmol/L (136-145) 09/11/21 K 4.7 mmol/L (3.5-5.1) 09/11/21 Cl 106 mmol/L (98-107) 09/11/21 CO2 26 mmol/L (21-32) 09/11/21 Anion Gap 7.0 (3-11) 09/11/21 BUN 16 mg/dl (7-18) 09/11/21 Creatinine 1.01 mg/dl (0.6-1.4) 09/11/21 BUN/Creatinine Ratio 16.2 (10-20) 09/11/21 Glucose Level 154 mg/dl (70-99) H 09/11/21 Ca 9.0 mg/dl (8.5-10.1) 09/11/21 Total Bilirubin 0.7 mg/dl (0.2-1) 09/11/21 AST/SGOT 30 U/L (15-37) 09/11/21 ALT/SGPT 37 U/L (12-78) 09/11/21 Alkaline Phosphatase 266 U/L (45-117) H 09/11/21 Total Protein 6.4 gm/dl (6.4-8.2) 09/11/21 Albumin 3.2 gm/dl (3.4-5.0) L 09/11/21 Globulin 3.2 gm/dl (2.5-4.0) 09/11/21 Albumin/Globulin Ratio 1.0 (0.9-2) 09/11/21 Troponin I 0.015 ng/ml (0-0.045) 09/11/21 DX-Zmc-[id number]-Type Natriuretic Pep 94926 pg/ml (0-900) H 09/11/21 PTT 29.1 Seconds (21.0-31.0) 09/11/21 INR 1.2 (0.9-1.1) H 09/11/21 COVID-19 PCR NEGATIVE (Negative) 09/11/21 Chest X-Ray 09/11/21 Code Status & VTE Plan Code Status FULL CODE VTE Prophylaxis Plan VTE Prophylaxis will be ordered: Yes Supervising Physician Co-Signing Physician Notes And is a 71-year-old man with history of coronary artery disease, CHF, [place] pheral artery disease, CVA, S/P left BKA and other medical problems presents with history of worsening shortness of breath associated with lower extremity edema, orthopnea, weight gain since 2 to 3 days duration. Please review HPI for complete details of presentation. Chest x-ray showed bilateral pleural effusions right greater than left. Also noted elevated BNP, hypomagnesemia 1.7, chronic anemia with baseline hemoglobin. On exam patient is chronically appearing, no apparent distress, normocephalic atraumatic, EOMI, lungs are clear to auscultation, normal breath sounds, S1-S2, no murmur, bilateral lower extremity edema, left upper extremity is edema, abdomen soft, nontender, normal bowel sounds, alert, awake, oriented, grossly no focal deficits, left below-knee amputation noted. Patient is admitted for management of acute on chronic systolic heart failure, hypomagnesemia, hypertensive urgency. Agree with IV diuresis, monitoring I's and O's, daily weight, fluid restriction. Update echo. Cardiology consulted. Replace electrolytes as needed. Monitor renal function. Will need to adjust antihypertensives based on blood pressure response to current management. Will check Dopplers to rule out DVT. Agree with continuing insulin therapy for management of diabetes mellitus. I personally reviewed the record. Patient is interviewed and examined at bedside. Patient's care is co ordinated with Irene Carmichael PA-C. Please refer to the documentation above for details of patient's presentation and for discussion of other issues. (1) Carotid stenosis Laterality: right Qualified Code(s): I65.21 - Occlusion and stenosis of right carotid artery (2) Diabetes mellitus Diabetes mellitus complication status: with other specified complication Diabetes mellitus intermediate insulin use: unspecified intermediate insulin use status Diabetes mellitus type: other specified (including RODRI) Qualified Code(s): E13.69 - Other specified diabetes mellitus with other specified complication
--- NOTE | 2021-09-11 14:35 | Electrocardiogram Report ---
Test Reason : Blood Pressure : / mmHG Vent. Rate : 076 BPM Atrial Rate : 076 BPM P-R Int : 252 ms QRS Dur : 100 ms QT Int : 406 ms P-R-T Axes : 037 -44 069 degrees QTc Int : 456 ms Sinus rhythm with 1st degree A-V block Left axis deviation Low voltage QRS Septal infarct , age undetermined Poor R wave progression, consider anterior DE vs. lead placement vs. LVH Abnormal ECG When compared with ECG of 12-JUN-2021 05:27, Significant changes have occurred Confirmed by Edvin Vuong ([id number]) on 09/11/2021 2:34:48 PM Referred By: Confirmed By:Edvin Vuong
[2021-09-11] MEDS ORDERED: NITROGLYCERIN 2% OINTMENT 30GM TUBE EXT ONE (14:39)
--- NOTE | 2021-09-11 15:14 | Cardiology Consultation ---
Date of Consultation September 11, 2021 Assessment & Plan (1) Acute on chronic HFrEF (heart failure with reduced ejection fraction): (2) Ischemic cardiomyopathy: (3) HTN (hypertension): (4) Surgical wound, non healing: (5) Venous stasis ulcer of right lower extremity: (6) CAD (coronary artery disease), [place] coronary artery: Patient is a complex 71-year-old male with history as outlined notable for severe multivessel coronary disease undergoing emergent unprotected stenting of the left main and proximal LAD in the setting of acute hemodynamic compromise/neurologic event in January 2021. Patient subsequently underwent carotid artery stenting but declined surgical revascularization and is being managed medically. He presents now with gradually worsening symptoms of the lower extremity hips and arm edema and mild dyspnea. Exam reflects acute on chronic congestive heart failure right greater than left with diffuse anasarca. Symptoms likely being precipitated by combination of issues including LV dysfunction, hypertension and chronic hypoalbuminemia/illness secondary to nonhealing wounds. Initial troponin negative and current findings do not suggest acute ischemia. Plan: IV diuresis already ordered as well as echocardiogram. Suspect moderate to severe LV dysfunction. Agree with topical nitrates and continuation of lisinopril for hypertension. Follow renal function closely with goals of upward titration of lisinopril and possibly beta-vince as well. Nocturnal hypoxia should be excluded, consider spironolactone Cardiology to follow while in hospital History of Present Illness Reason for Consultation: Congestive heart failure right greater than left Requesting Physician: Irene Carmichael History of Present Illness Patient is a 71-year-old male with complex past cardiac history. Information gained from prior review of records and chart, discussion with patient his ongoing issues include 1. Chronic ischemic heart disease, severe status post emergent coronary invention unprotected left main and proximal LAD January 2021 patient later declining surgical revascularization 2. Ischemic cardiomyopathy with moderate left ear dysfunction 3. Atherosclerotic peripheral vascular disease status post left below-knee amputation for nonhealing diabetic ulcer, gangrenous foot 4. Type 2 diabetes mellitus insulin requiring with nonhealing right diabetic foot ulcer 5. Moderate mitral insufficiency 6. Prior recurrent CVA status post right carotid artery stent 7. Intermittent interventricular conduction delay Patient presents today noting several days worsening edema, dyspnea swelling of hands and hips. He denies any chest pains or angina. Has been managed medically for chronic severe coronary artery disease with patient declining surgical revascularization. No fevers chills or productive cough no overt bleeding. Has been taking medications as prescribed. Notes he is not routinely on a diuretic. Follows with wound clinic due to nonhealing ulcerations at prior surgical wounds and right foot Exam notable for diffuse anasarca edema to above the hips. Chest x-ray with small pleural effusions but without profound pulmonary edema. Allergies Allergy/AdvReac Type Severity Reaction Status Date / Time No Known Allergies Allergy Verified 09/11/21 11:13 Home Medications Medication Instructions Recorded Confirmed Type aspirin 81 mg tablet,delayed 81 mg PO QAM 06/09/21 09/11/21 History release atorvastatin 80 mg tablet (Lipitor) 80 mg PO HS 06/09/21 09/11/21 History clopidogrel 75 mg tablet (Plavix) 75 mg PO QAM 06/09/21 09/11/21 History folic acid 3 mg-vit B complex with 1 tab PO QAM 06/09/21 09/11/21 History C-selenium 70 mcg-zinc 15 mg tablet gabapentin 100 mg capsule 200 mg PO BID 30 Days #120 cap 06/22/21 09/11/21 Rx lisinopril 5 mg tablet (Zestril) 5 mg PO QAM 30 Days #30 tab 06/22/21 09/11/21 Rx tamsulosin 0.4 mg capsule 0.4 mg PO HS 30 Days #30 cap 06/22/21 09/11/21 Rx metoprolol succinate 50 mg 50 mg PO DAILY tab 08/24/21 09/11/21 History tablet,extended release 24 hr ferrous sulfate 325 mg (65 mg 325 mg PO TID 09/11/21 09/11/21 History iron) tablet metformin 850 mg tablet 850 mg PO BID 09/11/21 09/11/21 History pantoprazole 40 mg tablet,delayed 40 mg PO DAILY 09/11/21 09/11/21 History release Patient History Medical History Anemia CAD (coronary artery disease), [place] coronary artery 02/12/2021: PCI with HERNANDEZ to the distal left main and proximal LAD. Additional distal LAD disease. Large non dominant left circumflex with moderate diffuse disease. Long subtotal occlusion of the distal vessel. Large dominant RCA with focal 70-80% lesion in the mid vessel. Diffuse [id number]-[id number] distal disease. Diabetes mellitus Elevated troponin I level Family history non-contributory History of CVA with residual deficit History of left below knee amputation Hyperlipidemia LDL goal <70 Ischemic cardiomyopathy LBBB (left bundle branch block) Mitral regurgitation Paroxysmal atrial fibrillation Peripheral vascular disease Symptomatic anemia Surgical History History of coronary artery stent placement History of right common carotid artery stent placement Status post below-knee amputation of left lower extremity Dr English 06/2021 Family History Other Diabetes Social History Smoking Status: Former smoker Hx Alcohol Use: Yes Alcohol type: beer Alcohol Intake Frequency: Monthly or Less Hx Substance Use: No Preferred Language: [place] Communication Ability: Effective Visual Impairment: Limited Hearing Ability: Normal Sas Programmer Remote Required: No Beliefs That Will Affect Care: None marital status: Single Current Living Situation: Alone and Personal Care Facility Current Living Situation Comment: [facility] current occupational status: retired Feels Safe at Home: Yes Assistive Devices: None Review of Systems Review of Systems: All systems reviewed & are unremarkable except as noted in HPI & below Physical Exam Constitutional: + ill appearing and + obese; no acute distress Eyes: PERRL, conjunctivae normal, anicteric sclerae ENMT: external ear and nose normal, oropharynx normal Neck: trachea midline, no thyromegaly Respiratory: Auscultation: + diminished lung sounds (At the bases) Cardiovascular: Rate/Rhythm: regular rate and regular rhythm Vessels: + JVD Extremities: + edema (Severe diffuse edema bilateral lower extremities all the way to the hips ) Gastrointestinal (Abdomen): normal bowel sounds, soft, nontender, no hepatosplenomegaly Musculoskeletal: Right foot bandaged. Left BKA present with bandage in place [facility]) Vital Signs (Past 12 Hours) Vital Signs Temp Pulse Pulse Resp BP BP Pulse Ox 09/11/21 13:36 95 H 20 156/110 H 95 09/11/21 12:23 100 09/11/21 12:21 74 18 163/106 H 100 09/11/21 10:45 36.7 C 77 18 172/118 H 100 Laboratory Results Laboratory Results - last 24 hr 09/11/21 09/11/21 09/11/21 11:15 11:15 11:15 WBC 4.83 RBC 3.75 L Hgb 10.7 L Hct 32.8 L MCV 87.5 MCH 28.5 MCHC 32.6 RDW Std Deviation 56.2 H RDW Coeff of Vel 17.5 H Plt Count 291 MPV 9.4 Immature Gran % (Auto) 0.2 Neut % (Auto) 73.1 Lymph % (Auto) 15.5 Kendall % (Auto) 7.7 Eos % (Auto) 2.9 Baso % (Auto) 0.6 Neut # (Auto) 3.53 Lymph # (Auto) 0.75 L Kendall # (Auto) 0.37 Eos # (Auto) 0.14 Baso # (Auto) 0.03 Immature Gran # (Auto) 0.01 PT 11.6 INR 1.2 H APTT 29.1 PTT Ratio 1.1 Sodium 139 Potassium 4.7 Chloride 106 Carbon Dioxide 26 Anion Gap 7.0 BUN 16 Creatinine 1.01 Est Cr Clr Drug Dosing 89.2 Est GFR ( Amer) 86.9 Est GFR (Non-Af Amer) 75.0 BUN/Creatinine Ratio 16.2 Glucose 154 H Calcium 9.0 Magnesium 1.7 L Total Bilirubin 0.7 AST 30 ALT 37 Alkaline Phosphatase 266 H Troponin I 0.015 NT-Pro-B Natriuret Pep 52090 H Total Protein 6.4 Albumin 3.2 L Globulin 3.2 Albumin/Globulin Ratio 1.0 COVID-19 Eval Order SARS-CoV-2 (PCR) 09/11/21 09/11/21 12:10 12:10 WBC RBC Hgb Hct MCV MCH MCHC RDW Std Deviation RDW Coeff of Vel Plt Count MPV Immature Gran % (Auto) Neut % (Auto) Lymph % (Auto) Kendall % (Auto) Eos % (Auto) Baso % (Auto) Neut # (Auto) Lymph # (Auto) Kendall # (Auto) Eos # (Auto) Baso # (Auto) Immature Gran # (Auto) PT INR APTT PTT Ratio Sodium Potassium Chloride Carbon Dioxide Anion Gap BUN Creatinine Est Cr Clr Drug Dosing Est GFR ( Amer) Est GFR (Non-Af Amer) BUN/Creatinine Ratio Glucose Calcium Magnesium Total Bilirubin AST ALT Alkaline Phosphatase Troponin I NT-Pro-B Natriuret Pep Total Protein Albumin Globulin Albumin/Globulin Ratio COVID-19 Eval Order Covid19 at [facility] SARS-CoV-2 (PCR) NEGATIVE ECG Additional Comments: Sinus rhythm with 1st degree A-V block Left axis deviation Low voltage QRS Septal infarct , age undetermined Poor R wave progression, consider anterior IA vs. lead placement vs. LVH Abnormal ECG When compared with ECG of 12-JUN-2021 05:27, interventricular conduction delay is no longer present
--- NOTE | 2021-09-11 15:24 | Ultrasound Report ---
US venous doppler UE LT HISTORY: 71 years-old Male edema acute pain and swelling of the left upper extremity COMPARISON: None TECHNIQUE: Multiple real-time sonographic images of the left upper extremity deep venous structures w ere obtained assessing grayscale appearance, color and spectral flow FINDINGS: Normal flow and phasicity of the left upper extremity deep venous structures. Mild subcutaneous edema . IMPRESSION: No sonographic evidence of deep venous thrombosis. ACT 112: Negative or not required by law. The above report was generated using voice recognition software. It may contain grammatical, syntax o r spelling errors. Electronically signed by: Edilberto Foy M.D. 09/11/2021 3:23 PM
--- NOTE | 2021-09-11 16:15 | XCELERA ---
[id number]
--- NOTE | 2021-09-11 18:27 | Ultrasound Report ---
BILATERAL LOWER EXTREMITY VENOUS DOPPLER CLINICAL HISTORY: edema COMPARISON STUDY: No previous studies for comparison. TECHNIQUE: Sonography of the deep venous system of the bilateral lower extremities was performed. Co mpression and augmentation were evaluated. FINDINGS: The bilateral common femoral, superficial femoral and popliteal veins were compressible. A ugmentation was normal. Flow was shown within the deep calf vessels of the right leg. Right below the knee amputation is present. Subcutaneous edema is noted within the lower extremities. IMPRESSION: No evidence of deep venous thrombus within the bilateral lower extremities. ACT 112: Negative or not required by law. Electronically signed by: Joaquim Lopez M.D. 09/11/2021 6:26 PM
[2021-09-11] MEDS ORDERED: GLUCOSE 10 TABS/TUBE PO PRN (19:44)
[2021-09-11] MEDS ORDERED: POLYETHYLENE (MIRALAX) 17 GM PACK PO PRN (19:44)
[2021-09-11] MEDS ORDERED: GLUCOSE 40% GEL 15 GM TUBE PO PRN (19:44)
[2021-09-11] MEDS ORDERED: NITROGLYCERIN SL 0.4 MG/TAB TAB SL PRN (19:44)
[2021-09-11] MEDS ORDERED: ALUMINUM/MAGNESIUM SUSP 30 ML UDC PO PRN (19:44)
[2021-09-11] MEDS ORDERED: GLUCAGON FOR INJ 1 MG VIAL SQ PRN (19:44)
[2021-09-11] MEDS ORDERED: ACETAMINOPHEN 325 MG TAB PO PRN (19:44)
[2021-09-11] MEDS ORDERED: CARBOHYDRATES FOR HYPOGLYCEMIA PO PRN (19:44)
[2021-09-11] MEDS ORDERED: ONDANSETRON INJ 2 MG/ML 2 ML VIAL IV PRN (19:44)
[2021-09-11] MEDS ORDERED: MAGNESIUM HYDROXIDE SUSP 30 ML UDC PO PRN (19:44)
[2021-09-11] MEDS ORDERED: DEXTROSE 50% 50 ML SYRINGE IV PRN (19:44)
[2021-09-11] MEDS: ATORVASTATIN 40 MG TAB PO SCH (20:34)
[2021-09-11 21:14] LABS: Appearance Urine Clear (Clear); Bilirubin Urine Negative (Negative); Blood Urine Negative (Negative); Color Urine Yellow; Glucose Urine UA Negative (Negative); Ketones Urine Negative (Negative); Leukocyte Esterase Urine Negative (Negative); Nitrite Urine Negative (Negative); Protein Urine Negative (Negative); Specific Gravity Urine 1.007 (1.000-1.030); Urobilinogen Urine Negative (Negative)
[2021-09-11] MEDS: INSULIN ASPART 100 UNITS/ML 3 ML PEN SC SCH (21:47)
[2021-09-11] MEDS: GABAPENTIN 100 MG CAP PO SCH (21:48)
[2021-09-11] MEDS: INSULIN GLARGINE SOLOSTAR 100 UNITS/ML 3 ML PEN SC SCH (21:48)
[2021-09-11] MEDS: FERROUS SULFATE 325 MG TAB PO SCH (21:48)
[2021-09-11] MEDS: TAMSULOSIN HCL 0.4 MG CAP PO SCH (21:49)
[2021-09-11] MEDS: ENOXAPARIN INJ 40 MG/0.4 ML SYR SQ SCH (21:49)
[2021-09-12 06:44] LABS: Basophils # (auto) 0.03 K/uL (0-0.2); Basophils % (auto) 0.9 %; Eosinophils # (auto) 0.29 K/uL (0-0.5); Eosinophils % (auto) 8.6 %; Immature Granulocytes # (auto) 0.01 K/uL (0.00-0.02); Immature Granulocytes % (auto) 0.3 %; Lymphocytes # (auto) 0.81 K/uL (1.2-3.4); Lymphocytes % (auto) 23.9 %; Mean Corpuscular Hemoglobin 28.6 pg (25-34); Mean Corpuscular Hgb Conc 33.3 g/dL (32-36); Mean Corpuscular Volume 85.7 fL (80-100); Mean Platelet Volume 8.9 fL (7.4-10.4); Monocytes # (auto) 0.32 K/uL (0.11-0.59); Monocytes % (auto) 9.4 %; Neutrophils # (auto) 1.93 K/uL (1.4-6.5); Neutrophils % (auto) 56.9 %; Platelet Count 241 K/uL (130-400); RDW Coefficient of Variation 17.4 % (11.5-14.5); RDW Standard Deviation 54.6 fL (36.4-46.3); White Blood Count 3.39 K/uL (4.8-10.8)
[2021-09-12 07:01] LABS: Albumin Level 2.8 gm/dl (3.4-5.0); BUN Creatinine Ratio 18.5 (10-20); Calcium 8.5 mg/dl (8.5-10.1); Creatinine Clr Calc Pharmacy 92.2 ml/min; Est GFR (African American) 103.8 ml/min; Est GFR (Non-African American) 89.6 ml/min; Magnesium 1.7 mg/dl (1.8-2.4); Potassium 3.9 mmol/L (3.5-5.1)
[2021-09-12 07:13] LABS: Albumin Globulin Ratio 0.9 (0.9-2); Bilirubin,Total 0.9 mg/dl (0.2-1); Total Protein 5.8 gm/dl (6.4-8.2)
[2021-09-12 07:18] LABS: Estimated Average Glucose 140 mg/dl; Hemoglobin A1C 6.5 % (4.5-5.6)
[2021-09-12] MEDS: INSULIN ASPART 100 UNITS/ML 3 ML PEN SC SCH ×4 (08:15→20:45)
[2021-09-12] MEDS: METOPROLOL SUCC 50MG EXT REL TAB PO SCH (08:34)
[2021-09-12] MEDS: PANTOprazole 40 MG TAB PO SCH (08:34)
[2021-09-12] MEDS: CLOPIDOGREL BISULFATE 75 MG TAB PO SCH (08:35)
[2021-09-12] MEDS: ASPIRIN 81 MG ECTAB PO SCH (08:35)
[2021-09-12] MEDS: FUROSEMIDE 40 MG in SYRINGE 0 ML IV SCH (08:35)
[2021-09-12] MEDS: GABAPENTIN 100 MG CAP PO SCH ×2 (08:36→20:47)
[2021-09-12] MEDS: FERROUS SULFATE 325 MG TAB PO SCH ×3 (08:36→17:06)
[2021-09-12] MEDS: INSULIN GLARGINE SOLOSTAR 100 UNITS/ML 3 ML PEN SC SCH ×2 (08:37→20:46)
[2021-09-12] MEDS ORDERED: lisinopril 5 MG TAB PO SCH (09:00)
[2021-09-12] MEDS ORDERED: VITAMIN B COMPLEX PO SCH (09:00)
[2021-09-12] MEDS ORDERED: FOLIC ACID PO SCH (09:00)
[2021-09-12] MEDS ORDERED: ZINC PO SCH (09:00)
[2021-09-12] MEDS ORDERED: ASCORBIC ACID PO SCH (09:00)
[2021-09-12] MEDS ORDERED: FUROSEMIDE 40 MG/4 ML VIAL IV SCH (09:00)
[2021-09-12] MEDS ORDERED: SELENIUM PO SCH (09:00)
[2021-09-12] MEDS ORDERED: MAGNESIUM SULFATE / D5W 1 GM/100 ML BAG IV ONE (10:30)
[2021-09-12] MEDS ORDERED: VANCOMYCIN CONSULT ACTIVE PRN (12:10)
[2021-09-12] MEDS ORDERED: VANCOMYCIN HCL 2,250 MG in SODIUM CHLORIDE 0.9% 500 ML IV STA (12:12)
[2021-09-12] MEDS ORDERED: VANCOMYCIN HCL 2,000 MG in SODIUM CHLORIDE 0.9% 500 ML IV ONE (12:30)
[2021-09-12] MEDS ORDERED: DAPTOmycin 475 MG in SYRINGE 0 ML IV SCH (13:00)
--- NOTE | 2021-09-12 13:07 | Cardiology Progress Note ---
Date of Service September 12, 2021 Assessment & Plan (1) Acute on chronic HFrEF (heart failure with reduced ejection fraction): Plan: -diuresing well on intravenous Lasix. -would continue IV diuretics until BUN and creatinine increase. -no need to follow daily BNP. -echocardiogram unchanged from June 2021. (2) Ischemic cardiomyopathy: Plan: -ejection fraction of 20-25% on current echocardiogram. -continue metoprolol succinate and lisinopril. (3) CAD (coronary artery disease), [place] coronary artery: Plan: -emergent distal LM and proximal LAD HERNANDEZ, January 2021. -the patient has refused bypass surgery. -quiescent on medical management. (4) Hyperlipidemia LDL goal <70: Plan: -continue atorvastatin. Admission and Anticipated Discharge Date Admission Date: September 11, 2021 Subjective The patient is resting comfortably in bed without complaints of chest pain or dyspnea. Feels greatly improved versus yesterday. Physical Exam Physical Exam: HEENT exam is negative. Neck is supple with full carotid upstrokes. There are no carotid bruits. Jugular venous pressure is flat at 90. Cardiovascular exam reveals a regular rhythm with distant heart sounds. No obvious murmurs. No S3. Lungs note decreased breath sounds at the bases but no rales, rhonchi, or wheezes. Abdomen is obese without bruits. Trace sacral pitting edema. Extremities reveal a left BKA. One to 2+ pitting edema of the right lower extremity. 1+ pitting edema of the upper extremities bilaterally. Results & Data ([facility]) Vital Signs (Past 12 Hours) Vital Signs Temp Pulse Pulse Resp BP Pulse Ox 09/12/21 10:58 36.5 C 72 17 144/89 H 94 09/12/21 07:24 68 09/12/21 07:16 36.5 C 65 19 174/88 H 94 09/12/21 04:40 36.5 C 63 19 135/83 95 Laboratory Results CBC notes hemoglobin 10.0, hematocrit 30.0, white count 3.39, platelet count [id number]. Electrolytes note a sodium of 130, potassium 3.9, chloride 106, bicarb 27, BUN 15, creatinine 0.82, and glucose of 107. BNP is elevated 14,506. Diagnostic Findings Echocardiogram notes moderate to severe left ventricle dysfunction with ejection fraction of 25-30%. There was apical akinesis but hypokinesis elsewhere. There is [id number]-[id number] mitral regurgitation. This is unchanged from a study done in June 2021. threat monitoring analyst notes sinus rhythm in the 70s. PG Care Time/CCT Total # of Minutes Spent Total Time Spent with Patient: Total time spent is greater than 50% in coordination of care (as documented) at patient's floor/unit and/or counseling patient: Coding Level of Care Code 03298 Subseq Hosp Care Lvl 3 Diagnoses Acute on chronic HFrEF (heart failure with reduced ejection fraction) I50.23 Ischemic cardiomyopathy I25.5 CAD (coronary artery disease), [place] coronary artery I25.10 Hyperlipidemia LDL goal <70 E78.5
--- NOTE | 2021-09-12 14:39 | Pharmacy Report ---
Pharmacy Vanc AUC Short Note - Date of Service September 12, 2021 - Assessment & Plan Assessment 71 year old M receiving vancomycin for treatment of cellulitis. Pertinent microbiologic data includes: L foot wound culture growing MRSA (from previous hospitalization in June). Day # 1 of antimicrobial therapy. Plan Vancomycin * AUC/MIGUEL is the preferred PK/PD target for vancomycin * AUC guided dosing is effective and associated with decreased risk of nephrotoxicity compared to traditional trough targets * Vancomycin 2000 mg IV x 1 * vancomycin 1250 mg IV q12 is predicted to achieve target AUC/MIGUEL of 400-600 mg/L.hr and may be associated with a 7 % risk of nephrotoxicity * Of note, patient's weight is up significantly from last hospitalization and now has BKA. This may be too aggressive dosing but will provide therapeutic levels quickly. Monitor for accumulation. * Trough to be ordered based upon clinical picture Pharmacy will continue to follow and will adjust dose/frequency as necessary. Thank you.
--- NOTE | 2021-09-12 14:59 | Orthopedic Consultation ---
Date of Consultation September 12, 2021 Assessment & Plan (1) Surgical wound, non healing: Nonhealing wound of left BKA stump with what now looks like a small amount of infection. Continue vancomycin at this time. Wound care team to evaluate right heel ulcer and also the left stump wound. Case reviewed with Dr. English. Planning for irrigation and debridement possibly on Saturday with the possibility of TheraSkin grafting. Culture swab taken of the surface wound of the left stump. Gram stain showing no organisms and no WBCs. History of Present Illness Reason for Consultation: Nonhealing left BKA stump wound Attending Physician: Paul Loco MD History of Present Illness Patient is a 71-year-old male known to our practice who is status post left BKA in June of this year. Patient states he continues to see Dr. English in follow- up and eventually had the antoine/sutures removed. Since that time he states that most of the wound has healed well however one section of the wound on the medial aspect has been slow to heal. He has been seeing the [facility] wound care team for this wound and several other wounds that he has. His last visit was in early September this year at the wound care center. At that time the wound was looking better and they were contemplating a Puraply graft to the area with insurance pending. Patient states that he is a resident at [facility]. He states that they have been taking care of the wound on a daily basis. The patient was admitted yesterday for acute on chronic CHF. During his admission, his wounds were reviewed and we have been asked to see him for his slow to heal left BKA wound. Patient has no complaints of the left BKA wound other than its been slow to heal. He states that the nursing care has been quite consistent where he resides. He denies any increased pain in the area. Allergies Allergy/AdvReac Type Severity Reaction Status Date / Time No Known Allergies Allergy Verified 09/11/21 11:13 Home Medications Medication Instructions Recorded Confirmed Type aspirin 81 mg tablet,delayed 81 mg PO QAM 06/09/21 09/11/21 History release atorvastatin 80 mg tablet (Lipitor) 80 mg PO HS 06/09/21 09/11/21 History clopidogrel 75 mg tablet (Plavix) 75 mg PO QAM 06/09/21 09/11/21 History folic acid 3 mg-vit B complex with 1 tab PO QAM 06/09/21 09/11/21 History C-selenium 70 mcg-zinc 15 mg tablet gabapentin 100 mg capsule 200 mg PO BID 30 Days #120 cap 06/22/21 09/11/21 Rx lisinopril 5 mg tablet (Zestril) 5 mg PO QAM 30 Days #30 tab 06/22/21 09/11/21 Rx tamsulosin 0.4 mg capsule 0.4 mg PO HS 30 Days #30 cap 06/22/21 09/11/21 Rx metoprolol succinate 50 mg 50 mg PO DAILY tab 08/24/21 09/11/21 History tablet,extended release 24 hr ferrous sulfate 325 mg (65 mg 325 mg PO TID 09/11/21 09/11/21 History iron) tablet metformin 850 mg tablet 850 mg PO BID 09/11/21 09/11/21 History pantoprazole 40 mg tablet,delayed 40 mg PO DAILY 09/11/21 09/11/21 History release Patient History Medical History Anemia CAD (coronary artery disease), [place] coronary artery 02/12/2021: PCI with HERNANDEZ to the distal left main and proximal LAD. Additional distal LAD disease. Large non dominant left circumflex with moderate diffuse disease. Long subtotal occlusion of the distal vessel. Large dominant RCA with focal 70-80% lesion in the mid vessel. Diffuse indb-kj-yzyiymam distal disease. Diabetes mellitus Elevated troponin I level Family history non-contributory History of CVA with residual deficit History of left below knee amputation Hyperlipidemia LDL goal <70 Ischemic cardiomyopathy LBBB (left bundle branch block) Mitral regurgitation Paroxysmal atrial fibrillation Peripheral vascular disease Symptomatic anemia Surgical History History of coronary artery stent placement History of right common carotid artery stent placement Status post below-knee amputation of left lower extremity Dr English 06/2021 Family History Other Diabetes Social History Smoking Status: Former smoker Do You Dip or Chew Tobacco: No; Tobacco Cessation Education Requested by Patient: No Hx Alcohol Use: Yes Alcohol type: beer Alcohol Intake Frequency: Monthly or Less Hx Substance Use: No Preferred Language: Japanese Communication Ability: Effective Visual Impairment: Limited Hearing Ability: Normal Arts Manager Required: No Beliefs That Will Affect Care: None marital status: Single Current Living Situation: Alone and Personal Care Facility Current Living Situation Comment: [facility] current occupational status: retired Other Information That Helps Us Care for You: No Feels Safe at Home: Yes Safety Concerns: Feels Safe At This Time Assistive Devices: Wheelchair Physical Exam Physical Exam: On examination, the patient is awake and alert and oriented. No acute distress, pleasant and cooperative. On examination of his left BKA stump, he has an Optifoam dressing noted over the nonhealing wound. This is removed. This reveals an area that is 7 to 8 cm in length and approximately 5 cm in width over the medial aspect of the stump. He has some yellow crusting surrounding a good portion of the wound itself mainly over the medial aspect. A couple of the areas has some greenish tint to it. S ome of it is dry. There is no foul odor. The base has a small thin layer of slough that is moist. He has a small edge of erythema that surrounds the wound itself. Greater over the medial aspect. He has no increased durations of erythema traveling proximally. Palpation of the area around the edges is not cause him discomfort. Optifoam dressing has been reapplied. Results & Data ([facility]) Vital Signs (Past 12 Hours) Vital Signs Temp Pulse Pulse Resp BP Pulse Ox 09/12/21 10:58 36.5 C 72 17 144/89 H 94 09/12/21 07:24 68 09/12/21 07:16 36.5 C 65 19 174/88 H 94 09/12/21 04:40 36.5 C 63 19 135/83 95
--- NOTE | 2021-09-12 15:24 | Electrocardiogram Report ---
Test Reason : Blood Pressure : / mmHG Vent. Rate : 067 BPM Atrial Rate : 067 BPM P-R Int : 262 ms QRS Dur : 114 ms QT Int : 460 ms P-R-T Axes : 006 -51 086 degrees QTc Int : 486 ms Sinus rhythm with 1st degree A-V block with occasional Premature ventricular complexes Left axis deviation Septal infarct (cited on or before 11-SEP-2021) Abnormal ECG When compared with ECG of 11-SEP-2021 10:56, Premature ventricular complexes are now Present Nonspecific T wave abnormality, improved in Lateral leads Confirmed by Edvin Vuong ([id number]) on 09/12/2021 3:24:22 PM Referred By: [facility] Confirmed By:Edvin Vuong
--- NOTE | 2021-09-12 17:27 | Hospitalist Progress Note ---
Date of Service September 12, 2021 Assessment & Plan (1) Acute on chronic HFrEF (heart failure with reduced ejection fraction): (2) Ischemic cardiomyopathy: (3) CAD (coronary artery disease), [place] coronary artery: (4) Diabetes mellitus: (5) HTN (hypertension): (6) Hypomagnesemia: (7) Surgical wound, non healing: (8) Diabetic ulcer of right heel: (9) Hyperlipidemia LDL goal <70: (10) Carotid stenosis: (11) History of CVA with residual deficit: Plan: Patient is 71 yr male with PMH of CAD with history of HERNANDEZ x3 to distal main and LAD 01/2021, chronic HFrEF EF 30 to 35%, moderate MR, history of right carotid artery stenosis status post stent placement, history of PAD and dry gangrene to left great toe and 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 Acute on chronic HFrEF Ischemic cardiomyopathy CAD S/P HERNANDEZ x3 01/2021, recommendation was CABG and patient declined EF: 20-25% Appreciate Cardiology Input Continue IV diuretics Strict I's and O's, daily weights Continue low-sodium diet, fluid restriction Continue ASA, Plavix, statin, metoprolol and lisinopril DM II HbA1C:6.5 Hold Metformin Lantus/NovoLog per protocol Hypertension On metoprolol and lisinopril Increase lisinopril to 10mg daily Hypomagnesemia Replace as needed Nonhealing wound of left BKA stump Wound/Blood Cx pending H/O MRSA Started on Vancomycin empirically Appreciate Orthopedics Input Planned for irrigation and debridement possibly on Saturday PAD/PVD H/O 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 Enlgish 06/2021 Continue home meds Hyperlipidemia Continue statin H/O CVA with residual left-sided weakness Right internal carotid artery stenosis Continue ASA and statin S/P stent to right internal carotid artery DVT px: Lovenox SQ Code Status FULL CODE Admission and Anticipated Discharge Date Admission Date: September 11, 2021 Subjective Patient is seen and examined at bedside States feeling much better today Denies any chest pain, dyspnea, dizziness, nausea, abdominal pain Noted left stump wound with pus Review of Systems Review of Systems: All systems reviewed & are unremarkable except as noted in Subjective Physical Exam Physical Exam: Physical Exam: Vitals signs as noted above General Appearance:Moderately built and nourished, no apparent distress Head: normocephalic, Atraumatic Eyes: normal inspection, EOMI Neck: supple, Trachea midline Respiratory/Chest: Decreased breath sounds, CTA, No accessory muscle use Cardiovascular: S1, S2, No murmur Abdomen/GI:Soft, Non tender, Bowel sounds present Extremities/Musculoskeletal:normal inspection, left below-knee amputation, + stump wound, + LE edema Neurologic/Psych:AAOX3, grossly no focal neurological deficits Skin: normal color, warm Results & Data Results & Data ([facility]) Vital Signs (Past 12 Hours) Vital Signs Temp Pulse Pulse Resp BP Pulse Ox 09/12/21 16:00 69 09/12/21 14:59 36.8 C 67 18 145/84 H 96 09/12/21 10:58 36.5 C 72 17 144/89 H 94 09/12/21 07:24 68 09/12/21 07:16 36.5 C 65 19 174/88 H 94 Laboratory Results Short CBC 09/12/21 Range/Units 06:01 WBC 3.39 L (4.8-10.8) K/uL Hgb 10.0 L (14.0-18.0) g/dL Hct 30.0 L (42-52) % Plt Count 241 (130-400) K/uL BMP 09/12/21 06:01 Sodium 138 Potassium 3.9 D Chloride 106 Carbon Dioxide 27 BUN 15 Creatinine 0.82 Glucose 107 H Calcium 8.5 Liver Function 09/12/21 Range/Units 06:01 Total Bilirubin 0.9 (0.2-1) mg/dl AST 25 (15-37) U/L ALT 31 (12-78) U/L Alkaline Phosphatase 227 H (45-117) U/L Albumin 2.8 L (3.4-5.0) gm/dl Urine 09/11/21 Range/Units 20:37 Urine Color Yellow Urine Appearance Clear (Clear) Urine pH 5.0 (4.5-7.5) Ur Specific [place] 1.007 (1.000-1.030) Urine Protein Negative (Negative) Urine Glucose (UA) Negative (Negative) (1) Diabetes mellitus Diabetes mellitus complication status: with other specified complication Diabetes mellitus terminal makeup operator insulin use: unspecified skilled nursing insulin use status Diabetes mellitus type: other specified (including RODRI) Qualified Code(s): E13.69 - Other specified diabetes mellitus with other specified complication (2) Carotid stenosis Laterality: right Qualified Code(s): I65.21 - Occlusion and stenosis of right carotid artery
[2021-09-12] MEDS: ATORVASTATIN 40 MG TAB PO SCH (20:47)
[2021-09-12] MEDS: TAMSULOSIN HCL 0.4 MG CAP PO SCH (20:48)
[2021-09-12] MEDS: ENOXAPARIN INJ 40 MG/0.4 ML SYR SQ SCH (21:07)
[2021-09-13] MEDS: VANCOMYCIN HCL 1,250 MG in SODIUM CHLORIDE 0.9% 250 ML IV SCH ×2 (02:13→14:24)
[2021-09-13 07:50] LABS: Hematocrit (blood only) 31.2 % (42-52); Hemoglobin 10.2 g/dL (14.0-18.0); Mean Corpuscular Hemoglobin 28.6 pg (25-34); Mean Corpuscular Hgb Conc 32.7 g/dL (32-36); Mean Corpuscular Volume 87.4 fL (80-100); Mean Platelet Volume 9.1 fL (7.4-10.4); Platelet Count 248 K/uL (130-400); RDW Coefficient of Variation 17.6 % (11.5-14.5); RDW Standard Deviation 56.2 fL (36.4-46.3); Red Blood Count 3.57 M/uL (4.7-6.1); White Blood Count 4.38 K/uL (4.8-10.8)
[2021-09-13 08:31] LABS: BUN Creatinine Ratio 20.4 (10-20); Calcium 8.7 mg/dl (8.5-10.1); Creatinine Clr Calc Pharmacy 94.8 ml/min; Est GFR (African American) 98.6 ml/min; Est GFR (Non-African American) 85.1 ml/min; Magnesium 1.8 mg/dl (1.8-2.4); Potassium 3.9 mmol/L (3.5-5.1)
[2021-09-13] MEDS: GABAPENTIN 100 MG CAP PO SCH ×2 (08:37→20:59)
[2021-09-13] MEDS: FERROUS SULFATE 325 MG TAB PO SCH ×3 (08:38→16:59)
[2021-09-13] MEDS: CLOPIDOGREL BISULFATE 75 MG TAB PO SCH (08:38)
[2021-09-13] MEDS: ASPIRIN 81 MG ECTAB PO SCH (08:38)
[2021-09-13] MEDS: lisinopril 10 MG TAB PO SCH (08:38)
[2021-09-13] MEDS: PANTOprazole 40 MG TAB PO SCH (08:39)
[2021-09-13] MEDS: METOPROLOL SUCC 50MG EXT REL TAB PO SCH (08:39)
[2021-09-13] MEDS: FUROSEMIDE 40 MG in SYRINGE 0 ML IV SCH (08:40)
[2021-09-13] MEDS: INSULIN GLARGINE SOLOSTAR 100 UNITS/ML 3 ML PEN SC SCH (08:41)
[2021-09-13] MEDS: INSULIN ASPART 100 UNITS/ML 3 ML PEN SC SCH ×4 (08:44→21:11)
--- NOTE | 2021-09-13 09:00 | Hospitalist Progress Note ---
Date of Service September 13, 2021 Assessment & Plan (1) Acute on chronic HFrEF (heart failure with reduced ejection fraction): (2) Ischemic cardiomyopathy: (3) CAD (coronary artery disease), [place] coronary artery: (4) Diabetes mellitus: (5) HTN (hypertension): (6) Hypomagnesemia: (7) Surgical wound, non healing: (8) Diabetic ulcer of right heel: (9) Hyperlipidemia LDL goal <70: (10) Carotid stenosis: (11) History of CVA with residual deficit: Plan: Patient is 71 yr male with PMH of CAD with history of HERNANEDZ x3 to distal main and LAD 01/2021, chronic HFrEF EF 30 to 35%, moderate MR, history of right carotid artery stenosis status post stent placement, history of PAD and dry gangrene to left great toe and 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 Acute on chronic HFrEF Ischemic cardiomyopathy CAD S/P HERNANDEZ x3 01/2021, recommendation was CABG and patient declined EF: 20-25% Appreciate Cardiology Input Continue IV diuretics Strict I's and O's, daily weights Continue low-sodium diet, fluid restriction Continue ASA, Plavix, statin, metoprolol and lisinopril DM II HbA1C:6.5 Hold Metformin Lantus/NovoLog per protocol Hypertension On metoprolol and lisinopril Increase lisinopril to 10mg daily Hypomagnesemia Replace as needed Nonhealing wound of left BKA stump Wound/Blood Cx pending H/O MRSA Started on Vancomycin empirically Appreciate Orthopedics Input Planned for irrigation and debridement possibly on Saturday PAD/PVD H/O 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 English 06/2021 follows w/ wound clinic and Dr. Wilkerson for PAD Continue home meds Hyperlipidemia Continue statin H/O CVA with residual left-sided weakness Right internal carotid artery stenosis Continue ASA and statin S/P stent to right internal carotid artery DVT px: Lovenox SQ Code Status FULL CODE Admission and Anticipated Discharge Date Admission Date: September 11, 2021 Subjective Patient seen in follow-up of CHF, and left BKA wound States feeling much better today Denies any chest pain, dyspnea, dizziness, nausea, abdominal pain Currently on room air, speaking in full sentences Review of Systems Review of Systems: All systems reviewed & are unremarkable except as noted in Subjective Physical Exam Physical Exam: General Appearance:Moderately built and nourished, no apparent distress Head: normocephalic, Atraumatic Eyes: normal inspection, EOMI Neck: supple, Trachea midline Respiratory/Chest: Decreased breath sounds, CTA, No accessory muscle use Cardiovascular: S1, S2, No murmur Abdomen/GI: Soft, Non tender, Bowel sounds present Extremities/Musculoskeletal: normal inspection, left below-knee amputation, + stump wound, + LE edema , R foot in dressings Neurologic/Psych:AAOX3, speech fluent, no facial asymmetry, moves extremities Skin: normal color, warm Results & Data Results & Data ([facility]) Vital Signs (Past 12 Hours) Vital Signs Temp Pulse Pulse Resp BP BP Pulse Ox 09/13/21 08:23 36.7 C 68 17 142/79 H 96 09/13/21 07:49 64 09/13/21 03:20 36.7 C 66 18 127/70 94 09/12/21 23:30 36.6 C 68 18 133/87 96 09/12/21 23:17 69 Laboratory Results 09/13/21 09/13/21 09/13/21 Range/Units 07:24 06:59 06:57 WBC (4.8-10.8) K/uL RBC (4.7-6.1) M/uL Hgb (14.0-18.0) g/dL Hct (42-52) % MCV (80-100) fL MCH (25-34) pg MCHC (32-36) g/dL RDW Std Deviation (36.4-46.3) fL RDW Coeff of Vel (11.5-14.5) % Plt Count (130-400) K/uL MPV (7.4-10.4) fL Sodium (136-145) mmol/L Potassium (3.5-5.1) mmol/L Chloride (98-107) mmol/L Carbon Dioxide (21-32) mmol/L Anion Gap (3-11) BUN (7-18) mg/dl Creatinine (0.6-1.4) mg/dl Est Cr Clr Drug Dosing ml/min Est GFR ( Amer) ml/min Est GFR (Non-Af Amer) ml/min BUN/Creatinine Ratio (10-20) Glucose (70-99) mg/dl POC Glucose 86 55 L* 56 L* (70-99) mg/dl Calcium (8.5-10.1) mg/dl Magnesium (1.8-2.4) mg/dl 09/13/21 09/13/21 09/12/21 Range/Units 06:57 06:57 20:42 WBC 4.38 L (4.8-10.8) K/uL RBC 3.57 L (4.7-6.1) M/uL Hgb 10.2 L (14.0-18.0) g/dL Hct 31.2 L (42-52) % MCV 87.4 (80-100) fL MCH 28.6 (25-34) pg MCHC 32.7 (32-36) g/dL RDW Std Deviation 56.2 H (36.4-46.3) fL RDW Coeff of Vel 17.6 H (11.5-14.5) % Plt Count 248 (130-400) K/uL MPV 9.1 (7.4-10.4) fL Sodium 141 (136-145) mmol/L Potassium 3.9 (3.5-5.1) mmol/L Chloride 106 (98-107) mmol/L Carbon Dioxide 29 (21-32) mmol/L Anion Gap 6.0 (3-11) BUN 19 H (7-18) mg/dl Creatinine 0.91 (0.6-1.4) mg/dl Est Cr Clr Drug Dosing 94.8 ml/min Est GFR ( Amer) 98.6 ml/min Est GFR (Non-Af Amer) 85.1 ml/min BUN/Creatinine Ratio 20.4 H (10-20) Glucose 54 L (70-99) mg/dl POC Glucose 170 H (70-99) mg/dl Calcium 8.7 (8.5-10.1) mg/dl Magnesium 1.8 (1.8-2.4) mg/dl 09/12/21 09/12/21 Range/Units 15:53 11:33 WBC (4.8-10.8) K/uL RBC (4.7-6.1) M/uL Hgb (14.0-18.0) g/dL Hct (42-52) % MCV (80-100) fL MCH (25-34) pg MCHC (32-36) g/dL RDW Std Deviation (36.4-46.3) fL RDW Coeff of Vel (11.5-14.5) % Plt Count (130-400) K/uL MPV (7.4-10.4) fL Sodium (136-145) mmol/L Potassium (3.5-5.1) mmol/L Chloride (98-107) mmol/L Carbon Dioxide (21-32) mmol/L Anion Gap (3-11) BUN (7-18) mg/dl Creatinine (0.6-1.4) mg/dl Est Cr Clr Drug Dosing ml/min Est GFR ( Amer) ml/min Est GFR (Non-Af Amer) ml/min BUN/Creatinine Ratio (10-20) Glucose (70-99) mg/dl POC Glucose 128 H 126 H (70-99) mg/dl Calcium (8.5-10.1) mg/dl Magnesium (1.8-2.4) mg/dl Medications Administered Current Inpatient Medications Acetaminophen (Acetaminophen 325 Mg Tab) 650 mg PO Q4H PRN PRN Reason: Pain or Fever Stop: 10/11/21 19:43 Last Admin: 09/11/21 20:27 Dose: 650 mg Documented by: Al Hydrox/Mg Hydrox/Simethicone (Aluminum/Magnesium Susp 30 Ml Udc) 15 ml PO Q4H PRN PRN Reason: Dyspepsia Stop: 10/11/21 19:43 Aspirin (Aspirin 81 Mg Ectab) 81 mg PO [facility] Stop: 10/12/21 08:59 Last Admin: 09/13/21 08:38 Dose: 81 mg Documented by: Atorvastatin Calcium (Atorvastatin 40 Mg Tab) 80 mg PO [facility] Stop: 10/11/21 20:59 Last Admin: 09/12/21 20:47 Dose: 80 mg Documented by: Clopidogrel Bisulfate (Clopidogrel Bisulfate 75 Mg Tab) [facility] Stop: 10/12/21 08:59 Last Admin: 09/13/21 08:38 Dose: 75 mg Documented by: Dextrose (Dextrose 50% 50 Ml Syringe) 25 - 50 ml IV UD PRN; Protocol PRN Reason: Hypoglycemia Protocol Stop: 10/11/21 19:43 Enoxaparin Sodium (Enoxaparin Inj 40 Mg/0.4 Ml Syr) 40 mg SQ Q24H REESE Stop: 10/11/21 21:59 Last Admin: 09/12/21 21:07 Dose: 40 mg Documented by: Ferrous Sulfate (Ferrous Sulfate 325 Mg Tab) 325 mg PO TIDM REESE Stop: 10/11/21 20:59 Last Admin: 09/13/21 08:38 Dose: 325 mg Documented by: Gabapentin (Gabapentin 100 Mg Cap) 200 mg PO BID REESE Stop: 10/11/21 20:59 Last Admin: 09/13/21 08:37 Dose: 200 mg Documented by: Glucagon (Glucagon For Inj 1 Mg Vial) 1 mg SQ UD PRN; Protocol PRN Reason: Hypoglycemia Protocol Stop: 10/11/21 19:43 Glucose (Glucose 10 Tabs/Tube) 4 - 8 tabs PO UD PRN; Protocol PRN Reason: Hypoglycemia Protocol Stop: 10/11/21 19:43 Glucose (Glucose 40% Gel 15 Gm Tube) 15 - 30 gm PO UD PRN; Protocol PRN Reason: Hypoglycemia Protocol Stop: 10/11/21 19:43 Furosemide 40 mg/ Syringe 4 mls @ 4 mls/min IV DAILY REESE Stop: 10/12/21 08:59 Last Admin: 09/13/21 08:40 Dose: 4 mls/min Documented by: Vancomycin HCl 1,250 mg/ (Sodium Chloride) 275 mls @ 200 mls/hr IV Q12H REEES Stop: 09/20/21 01:59 Last Infusion: 09/13/21 03:42 Dose: Infused Documented by: Insulin Aspart (Insulin Aspart 100 Units/Ml 3 Ml Pen) 0 units SC ACHS REESE Stop: 10/11/21 19:59 Last Admin: 09/13/21 08:44 Dose: Not Given Documented by: Insulin Glargine (Insulin Glargine Solostar 100 Units/Ml 3 Ml Pen) 0 - 15 units SC BID REESE Stop: 10/11/21 20:59 Last Admin: 09/13/21 08:41 Dose: Not Given Documented by: Lisinopril (Lisinopril 10 Mg Tab) 10 mg PO QAM REESE Stop: 10/13/21 08:59 Last Admin: 09/13/21 08:38 Dose: 10 mg Documented by: Magnesium Hydroxide (Magnesium Hydroxide Susp 30 Ml Udc) 30 ml PO Q12H PRN PRN Reason: Constipation Stop: 10/11/21 19:43 Metoprolol Succinate (Metoprolol Succ 50mg Ext Rel Tab) 50 mg PO DAILY REESE Stop: 10/12/21 08:59 Last Admin: 09/13/21 08:39 Dose: 50 mg Documented by: Miscellaneous (Carbohydrates For Hypoglycemia ) 15 - 30 gm PO UD PRN PRN Reason: Hypoglycemia Protocol Stop: 10/11/21 19:43 Last Admin: 09/13/21 07:10 Dose: 15 gm Documented by: Miscellaneous Information (Vancomycin Consult Active) 1 ea N/A UD PRN PRN Reason: Consult Stop: 10/12/21 12:09 Nitroglycerin (Nitroglycerin Sl 0.4 Mg/Tab Tab) 0.4 mg SL UD PRN PRN Reason: Chest Pain Stop: 10/11/21 19:43 Ondansetron HCl (Ondansetron Inj 2 Mg/Ml 2 Ml Vial) 4 mg IV Q6H PRN PRN Reason: Nausea Stop: 10/11/21 19:43 Pantoprazole Sodium (Pantoprazole 40 Mg Tab) 40 mg PO DAILY REESE Stop: 10/12/21 08:59 Last Admin: 09/13/21 08:39 Dose: 40 mg Documented by: Polyethylene Glycol (Polyethylene (Miralax) 17 Gm Pack) 17 gm PO DAILY PRN PRN Reason: Constipation Stop: 10/11/21 19:43 Tamsulosin HCl (Tamsulosin Hcl 0.4 Mg Cap) 0.4 mg PO HS REESE Stop: 10/11/21 20:59 Last Admin: 09/12/21 20:48 Dose: 0.4 mg Documented by: (1) Carotid stenosis Laterality: right Qualified Code(s): I65.21 - Occlusion and stenosis of right carotid artery (2) Diabetes mellitus Diabetes mellitus complication status: with other specified complication 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
[2021-09-13] MEDS ORDERED: PHARMACY GLYCEMIC MGMT CONSULT PRN (12:11)
--- NOTE | 2021-09-13 12:34 | Electrocardiogram Report ---
Test Reason : Blood Pressure : / mmHG Vent. Rate : 066 BPM Atrial Rate : 066 BPM P-R Int : 278 ms QRS Dur : 108 ms QT Int : 456 ms P-R-T Axes : 000 -45 133 degrees QTc Int : 478 ms Sinus rhythm with 1st degree A-V block with Premature supraventricular complexes Left axis deviation Abnormal ECG When compared with ECG of 12-SEP-2021 05:39, Premature ventricular complexes are no longer Present Premature supraventricular complexes are now Present Confirmed by Edvin Vuong ([id number]) on 09/13/2021 12:34:12 PM Referred By: [facility] Confirmed By:Edvin Vuong
--- NOTE | 2021-09-13 13:09 | Pharmacy Report ---
Pharmacy Glycemic Short Note 2 - Date of Service September 13, 2021 - Glycemic Short BSG Results (Last 24 hours): 09/12/21 09/12/21 09/13/21 15:53 20:42 06:57 Glucose 54 L POC Glucose 128 H 170 H 09/13/21 09/13/21 09/13/21 06:57 06:59 07:24 Glucose POC Glucose 56 L* 55 L* 86 09/13/21 11:19 Glucose POC Glucose 85 OUTPATIENT ANTIDIABETIC REGIMEN: * metformin 850 mg BID ASSESSMENT: * Mr Coffman is a 71 y/o M with a PMH of T2DM on metformin who presents with an infection. * Patient's BSGs yesterday were [phone] and patient received 33 units of insulin (15 units of basal and 18 units of bolus). * Patient's fasting today was 56 and lunch was 85 mg/dL. * Per previous visit, Lantus 8 units daily produced excellent fastings. * Will plan for Lantus 8 units starting on 09/14 to allow for patient's BSGs to recover. Overnight checks to ensure patient does not suffer rebound hyperglycemia. * Novolog weight-based stress of 2. PLAN FOR INPATIENT GLYCEMIC CONTROL: * Hold outpatient oral diabetes medications * Basal insulin * Lantus 8 units SQ daily * Bolus insulin * NovoLog per scale ACHS or Q6hrs while NPO * Goal Range: Low 120 mg/dL - High 160 mg/dL * Correction Factor: 25 mg/dL/unit * Nutritional / Prandial insulin per carb ratio of 1 unit per 8 grams CHO consumed PLAN FOR DISCHARGE: * Patient's HbA1C is well controlled and at goal. Can continue current regimen.
[2021-09-13] MEDS: MAGNESIUM OXIDE 400 MG TAB PO SCH ×2 (14:19→20:59)
--- NOTE | 2021-09-13 14:30 | Heart Failure Progress Note ---
Date of Service September 13, 2021 Assessment & Plan (1) Acute on chronic HFrEF (heart failure with reduced ejection fraction): Plan: -diuresing well on intravenous Lasix 40 mg. Goal negative 1-2 L per day. -Kidney function and electrolytes stable- would continue IV diuretics until BUN and creatinine increase. -echocardiogram unchanged from June 2021. EF 25-30%. - Daily weights, strict I&Os, low sodium diet. - Optimize GDMT as below. - Patient has been referred to the [facility] heart failure program by Dr. Vuong. Anticipate outpatient follow up within 7 days. (2) Ischemic cardiomyopathy: Plan: -ejection fraction of 25-30% on current echocardiogram. -Would recommend further optimization of his GDMT. Consider transitioning from Lisinopril to Entresto. Case management could look into his coverage and out of pocket expense. Will require 36 hour wash out. Continue to titrate medications as BP and kidney function allows as an outpatient. Also consider adding Spironolactone for diuretic and HF benefits. - Consider referral to EP for ICD if EF remains < 35% after at least 3 months of optimal therapy. (3) CAD (coronary artery disease), [place] coronary artery: Plan: -emergent distal LM and proximal LAD HERNANDEZ, January 2021. -He has been evaluated by the cardiovascular surgeons at [facility] and was advised to undergo bypass surgery based on his residual coronary disease and cardiomyopathy. However, the patient does not have an interest in proceeding with surgery. - No angina. -Continue ASA, statin, beta vince, Plavix (4) Hyperlipidemia LDL goal <70: Plan: -continue atorvastatin. Admission and Anticipated Discharge Date Admission Date: September 11, 2021 Subjective Patient reports he's feeling well today. He is on room air and breathing is consistent with his typical baseline. He continues to have edema in his upper extremities but his lower extremities appear to be improving. He denies chest pain, palpitations, or cough. He is unable to do daily weights at [facility] so his dry weight is unknown. He's negative 10 L for this admission. Weight is trending down appropriately. Physical Exam Physical Exam: Constitutional: Alert, oriented, in no acute distress HEENT: Head is atraumatic and normocephalic. EOMs intact. Sclera anicteric. Face is symmetric. No perioral cyanosis. Mucous membranes moist. Neck: Supple, no JVD Pulmonary: Normal respiratory effort, faint bibasilar crackles noted Cardiac: Regular rate and rhythm. Normal S1 and S2, no gallops, no rubs, no murmurs Extremities: 2+ radial pulses bilaterally. L BKA. 1+ pitting edema on the R. 1-2+ BUE pitting edema.. No cyanosis or clubbing. Abdomen: Normal bowel sounds, soft, non-tender, no abdominal mass palpated Skin: Normal skin color, turgor, and pigmentation, no rash, no skin lesions Neurological: Patient is awake, alert, and oriented. Pleasant and cooperative. Answers questions appropriately. Speech is clear. Normal movement in all 4 extre mities. Gait pattern is unremarkable. Results & Data ([facility]) Vital Signs (Past 12 Hours) Vital Signs Temp Pulse Pulse Resp BP BP Pulse Ox 09/13/21 11:21 98.6 F 67 18 137/82 98 09/13/21 08:23 98.1 F 68 17 142/79 H 96 09/13/21 07:49 64 09/13/21 03:20 98.1 F 66 18 127/70 94 PG Care Time/CCT Total # of Minutes Spent Total Time Spent with Patient: Total time spent is greater than 50% in coordination of care (as documented) at patient's floor/unit and/or counseling patient: Heart Failure Data/Metrics Heart Failure Type: Systolic Ejection Fraction: 25-30% Evidenced Based Beta Vince Therapy Beta Vince Therapy: Yes Beta Vince Name: Metoprolol Succinate Beta Vince Target Therapy: Not at Target Therapy SURYA/ARB/ARNI Therapy SURYA/ARB/ARNI Therapy: Yes SURYA/ARB/ARNI Name: Lisinopril SURYA/ARB/ARNI Target Therapy: Not at Target Therapy Coding Level of Care Code 80713 Subseq Hosp Care Lvl 3 Diagnoses Acute on chronic HFrEF (heart failure with reduced ejection fraction) I50.23 Ischemic cardiomyopathy I25.5 CAD (coronary artery disease), [place] coronary artery I25.10 Hyperlipidemia LDL goal <70 E78.5
[2021-09-13] MEDS: TAMSULOSIN HCL 0.4 MG CAP PO SCH (20:58)
[2021-09-13] MEDS: ATORVASTATIN 40 MG TAB PO SCH (20:58)
[2021-09-13] MEDS: ENOXAPARIN INJ 40 MG/0.4 ML SYR SQ SCH (21:00)
[2021-09-14] MEDS: VANCOMYCIN HCL 1,250 MG in SODIUM CHLORIDE 0.9% 250 ML IV SCH ×2 (02:36→15:19)
[2021-09-14] MEDS: INSULIN ASPART 100 UNITS/ML 3 ML PEN SC SCH ×6 (04:15→20:23)
[2021-09-14 07:20] LABS: Hematocrit (blood only) 31.7 % (42-52); Hemoglobin 10.7 g/dL (14.0-18.0); Mean Corpuscular Hemoglobin 28.9 pg (25-34); Mean Corpuscular Hgb Conc 33.8 g/dL (32-36); Mean Corpuscular Volume 85.7 fL (80-100); Platelet Count 232 K/uL (130-400); RDW Coefficient of Variation 17.7 % (11.5-14.5); RDW Standard Deviation 55.9 fL (36.4-46.3); White Blood Count 4.46 K/uL (4.8-10.8)
[2021-09-14 07:58] LABS: BUN Creatinine Ratio 22.4 (10-20); Calcium 8.5 mg/dl (8.5-10.1); Creatinine Clr Calc Pharmacy 89.8 ml/min; Est GFR (African American) 93.6 ml/min; Est GFR (Non-African American) 80.8 ml/min; Magnesium 1.8 mg/dl (1.8-2.4); Phosphorus 4.1 mg/dl (2.5-4.9)
--- NOTE | 2021-09-14 08:07 | Hospitalist Progress Note ---
Date of Service September 14, 2021 Assessment & Plan (1) Acute on chronic HFrEF (heart failure with reduced ejection fraction): (2) Ischemic cardiomyopathy: (3) CAD (coronary artery disease), [place] coronary artery: (4) Diabetes mellitus: (5) HTN (hypertension): (6) Hypomagnesemia: (7) Surgical wound, non healing: (8) Diabetic ulcer of right heel: (9) Hyperlipidemia LDL goal <70: (10) Carotid stenosis: (11) History of CVA with residual deficit: Plan: Patient is 71 yr male with PMH of CAD with history of HERNANDEZ x3 to distal main and LAD 01/2021, chronic HFrEF EF 30 to 35%, moderate MR, history of right carotid artery stenosis status post stent placement, history of PAD and dry gangrene to left great toe and 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 Acute on chronic HFrEF Ischemic cardiomyopathy CAD S/P HERNANDEZ x3 01/2021, recommendation was CABG and patient declined EF: 20-25% Appreciate Cardiology Input Continue IV diuretics Strict I's and O's, daily weights Continue low-sodium diet, fluid restriction Continue ASA, Plavix, statin, metoprolol and lisinopril Started also on spironolactone Nonhealing wound of left BKA stump Wound/Blood Cx pending H/O MRSA Started on Vancomycin empirically Appreciate Orthopedics Input Planned for irrigation and debridement possibly on Saturday 09/15 R heel wound Pt follows with wound care clinic, Maria E PEREZ Discussed with Maria E, who recommends to obtain MRI of heel while in the hospital Orthopedics aware about the plan for MRI PAD/PVD H/O 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 English 06/2021 follows w/ wound clinic and Dr. Wilkerson for PAD Plan was to obtain arterial Doppler for right lower extremity, will obtain now IMPRESSION: 1. Elevated peak systolic velocities within the anterior tibial artery are compatible with hemodynamically significant stenosis. 2. No arterial occlusion. 3. Normal triphasic waveforms above the level of the knee. 4. Abnormal toe brachial index of 0.23. Dr. Wilkerson aware of pt being in the hospital and study obtained above Continue home meds DM II HbA1C:6.5 Hold Metformin Lantus/NovoLog per protocol Hypertension On metoprolol and lisinopril Increase lisinopril to 10mg daily Hypomagnesemia Replace as needed Hyperlipidemia Continue statin H/O CVA with residual left-sided weakness Right internal carotid artery stenosis Continue ASA and statin S/P stent to right internal carotid artery DVT px: Manjulanox SQ Code Status FULL CODE Admission and Anticipated Discharge Date Admission Date: September 11, 2021 Subjective Patient seen in follow-up of CHF, and left BKA wound, R heel wound States feeling much better today Denies any chest pain, dyspnea, dizziness, nausea, abdominal pain Currently on room air, speaking in full sentences Discussed with ANA Collins, patient's wound care provider - plan for arterial Dopplers as was previously planned with Dr. Wilkerson. We will also obtain MRI of his right heel. Orthopedics also aware Review of Systems Review of Systems: All systems reviewed & are unremarkable except as noted in Subjective Physical Exam Physical Exam: General Appearance:Moderately built and nourished, no apparent distress Head: normocephalic, Atraumatic Eyes: normal inspection, EOMI Neck: supple, Trachea midline Respiratory/Chest: Decreased breath sounds, CTA, No accessory muscle use Cardiovascular: S1, S2, No murmur Abdomen/GI: Soft, Non tender, Bowel sounds present Extremities/Musculoskeletal: normal inspection, left below-knee amputation, + stump wound, + LE edema , R foot in dressings Neurologic/Psych:AAOX3, speech fluent, no facial asymmetry, moves extremities Skin: normal color, warm Results & Data Results & Data ([facility]) Vital Signs (Past 12 Hours) Vital Signs Temp Pulse Pulse Resp BP BP Pulse Ox 09/14/21 02:45 36.5 C 68 18 158/85 H 95 09/13/21 23:42 36.8 C 72 14 159/85 H 96 09/13/21 23:00 73 Laboratory Results 09/14/21 09/14/21 09/14/21 Range/Units 07:23 06:58 06:58 WBC 4.46 L (4.8-10.8) K/uL RBC 3.70 L (4.7-6.1) M/uL Hgb 10.7 L (14.0-18.0) g/dL Hct 31.7 L (42-52) % MCV 85.7 (80-100) fL MCH 28.9 (25-34) pg MCHC 33.8 (32-36) g/dL RDW Std Deviation 55.9 H (36.4-46.3) fL RDW Coeff of Vel 17.7 H (11.5-14.5) % Plt Count 232 (130-400) K/uL MPV 9.0 (7.4-10.4) fL Sodium 139 (136-145) mmol/L Potassium 4.0 (3.5-5.1) mmol/L Chloride 104 (98-107) mmol/L Carbon Dioxide 30 (21-32) mmol/L Anion Gap 6.0 (3-11) BUN 21 H (7-18) mg/dl Creatinine 0.95 (0.6-1.4) mg/dl Est Cr Clr Drug Dosing 89.8 ml/min Est GFR ( Amer) 93.6 ml/min Est GFR (Non-Af Amer) 80.8 ml/min BUN/Creatinine Ratio 22.4 H (10-20) Glucose 85 (70-99) mg/dl POC Glucose 86 (70-99) mg/dl Calcium 8.5 (8.5-10.1) mg/dl Phosphorus 4.1 (2.5-4.9) mg/dl Magnesium 1.8 (1.8-2.4) mg/dl 09/14/21 09/13/21 09/13/21 Range/Units 04:19 23:48 21:06 WBC (4.8-10.8) K/uL RBC (4.7-6.1) M/uL Hgb (14.0-18.0) g/dL Hct (42-52) % MCV (80-100) fL MCH (25-34) pg MCHC (32-36) g/dL RDW Std Deviation (36.4-46.3) fL RDW Coeff of Vel (11.5-14.5) % Plt Count (130-400) K/uL MPV (7.4-10.4) fL Sodium (136-145) mmol/L Potassium (3.5-5.1) mmol/L Chloride (98-107) mmol/L Carbon Dioxide (21-32) mmol/L Anion Gap (3-11) BUN (7-18) mg/dl Creatinine (0.6-1.4) mg/dl Est Cr Clr Drug Dosing ml/min Est GFR ( Amer) ml/min Est GFR (Non-Af Amer) ml/min BUN/Creatinine Ratio (10-20) Glucose (70-99) mg/dl POC Glucose 87 101 H 134 H (70-99) mg/dl Calcium (8.5-10.1) mg/dl Phosphorus (2.5-4.9) mg/dl Magnesium (1.8-2.4) mg/dl 09/13/21 09/13/21 09/13/21 Range/Units 16:15 11:19 06:57 WBC (4.8-10.8) K/uL RBC (4.7-6.1) M/uL Hgb (14.0-18.0) g/dL Hct (42-52) % MCV (80-100) fL MCH (25-34) pg MCHC (32-36) g/dL RDW Std Deviation (36.4-46.3) fL RDW Coeff of Vel (11.5-14.5) % Plt Count (130-400) K/uL MPV (7.4-10.4) fL Sodium 141 (136-145) mmol/L Potassium 3.9 (3.5-5.1) mmol/L Chloride 106 (98-107) mmol/L Carbon Dioxide 29 (21-32) mmol/L Anion Gap 6.0 (3-11) BUN 19 H (7-18) mg/dl Creatinine 0.91 (0.6-1.4) mg/dl Est Cr Clr Drug Dosing 94.8 ml/min Est GFR ( Amer) 98.6 ml/min Est GFR (Non-Af Amer) 85.1 ml/min BUN/Creatinine Ratio 20.4 H (10-20) Glucose 54 L (70-99) mg/dl POC Glucose 81 85 (70-99) mg/dl Calcium 8.7 (8.5-10.1) mg/dl Phosphorus (2.5-4.9) mg/dl Magnesium 1.8 (1.8-2.4) mg/dl Medications Administered Current Inpatient Medications Acetaminophen (Acetaminophen 325 Mg Tab) 650 mg PO Q4H PRN PRN Reason: Pain or Fever Stop: 10/11/21 19:43 Last Admin: 09/11/21 20:27 Dose: 650 mg Documented by: Al Hydrox/Mg Hydrox/Simethicone (Aluminum/Magnesium Susp 30 Ml Udc) 15 ml PO Q4H PRN PRN Reason: Dyspepsia Stop: 10/11/21 19:43 Aspirin (Aspirin 81 Mg Ectab) 81 mg PO QAM [facility] Stop: 10/12/21 08:59 Last Admin: 09/13/21 08:38 Dose: 81 mg Documented by: Atorvastatin Calcium (Atorvastatin 40 Mg Tab) [address] [facility] Stop: 10/11/21 20:59 Last Admin: 09/13/21 20:58 Dose: 80 mg Documented by: Clopidogrel Bisulfate (Clopidogrel Bisulfate 75 Mg Tab) [address] [facility] Stop: 10/12/21 08:59 Last Admin: 09/13/21 08:38 Dose: 75 mg Documented by: Dextrose (Dextrose 50% 50 Ml Syringe) 25 - 50 ml IV UD PRN; Protocol PRN Reason: Hypoglycemia Protocol Stop: 10/11/21 19:43 Enoxaparin Sodium (Enoxaparin Inj 40 Mg/0.4 Ml Syr) 40 mg SQ Q24H RE[facility] Stop: 10/11/21 21:59 Last Admin: 09/13/21 21:00 Dose: 40 mg Documented by: Ferrous Sulfate (Ferrous Sulfate 325 Mg Tab) 325 mg PO TIDM RE[facility] Stop: 10/11/21 20:59 Last Admin: 09/13/21 16:59 Dose: 325 mg Documented by: Gabapentin (Gabapentin 100 Mg Cap) 200 mg PO BID [facility] Stop: 10/11/21 20:59 Last Admin: 09/13/21 20:59 Dose: 200 mg Documented by: Glucagon (Glucagon For Inj 1 Mg Vial) 1 mg SQ UD PRN; Protocol PRN Reason: Hypoglycemia Protocol Stop: 10/11/21 19:43 Glucose (Glucose 10 Tabs/Tube) 4 - 8 tabs PO UD PRN; Protocol PRN Reason: Hypoglycemia Protocol Stop: 10/11/21 19:43 Glucose (Glucose 40% Gel 15 Gm Tube) 15 - 30 gm PO UD PRN; Protocol PRN Reason: Hypoglycemia Protocol Stop: 10/11/21 19:43 Furosemide 40 mg/ Syringe 4 mls @ 4 mls/min IV DAILY RE[facility] Stop: 10/12/21 08:59 Last Admin: 09/13/21 08:40 Dose: 4 mls/min Documented by: Vancomycin HCl 1,250 mg/ (Sodium Chloride) 275 mls @ 200 mls/hr IV Q12H [facility] Stop: 09/20/21 01:59 Last Infusion: 09/14/21 03:59 Dose: Infused Documented by: Insulin Aspart (Insulin Aspart 100 Units/Ml 3 Ml Pen) 0 units SC ACHS REESE Stop: 10/11/21 19:59 Last Admin: 09/13/21 21:11 Dose: Not Given Documented by: Insulin Glargine (Insulin Glargine Solostar 100 Units/Ml 3 Ml Pen) [address] [facility] Stop: 10/14/21 08:59 Lisinopril (Lisinopril 10 Mg Tab) [address] [facility] Stop: 10/13/21 08:59 Last Admin: 09/13/21 08:38 Dose: 10 mg Documented by: Magnesium Hydroxide (Magnesium Hydroxide Susp 30 Ml Udc) 30 ml PO Q12H PRN PRN Reason: Constipation Stop: 10/11/21 19:43 Magnesium Oxide (Magnesium Oxide 400 Mg Tab) [address] [facility] Stop: 10/13/21 12:29 Last Admin: 09/13/21 20:59 Dose: 400 mg Documented by: Metoprolol Succinate (Metoprolol Succ 50mg Ext Rel Tab) [address] [facility] Stop: 10/12/21 08:59 Last Admin: 09/13/21 08:39 Dose: 50 mg Documented by: Miscellaneous (Carbohydrates For Hypoglycemia ) 15 - 30 gm PO UD PRN PRN Reason: Hypoglycemia Protocol Stop: 10/11/21 19:43 Last Admin: 09/13/21 07:10 Dose: 15 gm Documented by: Miscellaneous Information (Vancomycin Consult Active) 1 ea N/A UD PRN PRN Reason: Consult Stop: 10/12/21 12:09 Miscellaneous Information (Pharmacy Glycemic Mgmt Consult) 1 ea N/A UD PRN PRN Reason: Consult Stop: 10/13/21 12:10 Nitroglycerin (Nitroglycerin Sl 0.4 Mg/Tab Tab) 0.4 mg SL UD PRN PRN Reason: Chest Pain Stop: 10/11/21 19:43 Ondansetron HCl (Ondansetron Inj 2 Mg/Ml 2 Ml Vial) 4 mg IV Q6H PRN PRN Reason: Nausea Stop: 10/11/21 19:43 Pantoprazole Sodium (Pantoprazole 40 Mg Tab) 40 mg PO DAILY [facility] Stop: 10/12/21 08:59 Last Admin: 09/13/21 08:39 Dose: 40 mg Documented by: Polyethylene Glycol (Polyethylene (Miralax) 17 Gm Pack) 17 gm PO DAILY PRN PRN Reason: Constipation Stop: 10/11/21 19:43 Spironolactone (Spironolactone 12.5 Mg Tab) 12.5 mg PO DAILY [facility] Stop: 10/14/21 08:59 Tamsulosin HCl (Tamsulosin Hcl 0.4 Mg Cap) 0.4 mg PO HS [facility] Stop: 10/11/21 20:59 Last Admin: 09/13/21 20:58 Dose: 0.4 mg Documented by: (1) Carotid stenosis Laterality: right Qualified Code(s): I65.21 - Occlusion and stenosis of right carotid artery (2) Diabetes mellitus Diabetes mellitus complication status: with other specified complication Diabetes mellitus group home insulin use: unspecified group home insulin use status Diabetes mellitus type: other specified (including RODRI) Qualified Code(s): E13.69 - Other specified diabetes mellitus with other specified complication
[2021-09-14] MEDS: FERROUS SULFATE 325 MG TAB PO SCH ×3 (08:47→17:46)
[2021-09-14] MEDS: MAGNESIUM OXIDE 400 MG TAB PO SCH ×2 (08:47→20:16)
[2021-09-14] MEDS: GABAPENTIN 100 MG CAP PO SCH ×2 (08:47→20:16)
[2021-09-14] MEDS: SPIRONOLACTONE 12.5 MG TAB PO SCH (08:47)
[2021-09-14] MEDS: lisinopril 10 MG TAB PO SCH (08:48)
[2021-09-14] MEDS: PANTOprazole 40 MG TAB PO SCH (08:48)
[2021-09-14] MEDS: CLOPIDOGREL BISULFATE 75 MG TAB PO SCH (08:48)
[2021-09-14] MEDS: FUROSEMIDE 40 MG in SYRINGE 0 ML IV SCH (08:48)
[2021-09-14] MEDS: ASPIRIN 81 MG ECTAB PO SCH (08:48)
[2021-09-14] MEDS: METOPROLOL SUCC 50MG EXT REL TAB PO SCH (08:48)
[2021-09-14] MEDS ORDERED: INSULIN GLARGINE SOLOSTAR 100 UNITS/ML 3 ML PEN SC SCH (09:00)
--- NOTE | 2021-09-14 12:12 | Ultrasound Report ---
US arterial duplex LE RT HISTORY: 71 years-old Male PDA, R foot wound chronic wound of the right lower extremity with periphe ral arterial disease COMPARISON: Doppler study of the lower extremity arterial structures 06/09/2021 TECHNIQUE: Segmental pressures were obtained along with multiple real-time sonographic images of the left lower extremity arterial structures assessing grayscale appearance, color and spectral flow FINDINGS: Segmental pressures: Right toe brachial index is 0.23. Mild atherosclerotic plaque redemonstrated. Triphasic waveforms within the common femoral, profunda femoris, superficial femoral and popliteal arteries. Monophasic and biphasic waveforms are noted with in the arteries of the calf, notably there are blunted monophasic waveforms with spectral broadening within the anterior tibial artery. Elevated peak systolic velocities within the mid aspect of the ant erior tibial artery measure up to 407 cm/s. No arterial occlusion identified. Suboptimal visualizatio n of the posterior tibial artery secondary to overlying bandaging. Nonspecific subcutaneous edema. IMPRESSION: 1. Elevated peak systolic velocities within the anterior tibial artery are compatible with hemodynami jarad significant stenosis. 2. No arterial occlusion. 3. Normal triphasic waveforms above the level of the knee. 4. Abnormal toe brachial index of 0.23. ACT 112: Negative or not required by law. The above report was generated using voice recognition software. It may contain grammatical, syntax o r spelling errors. Electronically signed by: Edilberto Foy M.D. 09/14/2021 12:10 PM
[2021-09-14] MEDS ORDERED: VANCOMYCIN TROUGH ONE (13:30)
--- NOTE | 2021-09-14 14:39 | Cardiology Progress Note ---
Date of Service September 14, 2021 Assessment & Plan (1) Acute on chronic HFrEF (heart failure with reduced ejection fraction): Plan: Doing well on his current dose of diuretic. Renal function appears stable. I think continue at the current dose would be adequate. He still has a lot of edema. (2) Ischemic cardiomyopathy: Plan: He was initially advised to consider surgical revascularization. However, he has declined. Given his stability he would seem inappropriate to refer him for bypass current Abbi. Will continue aggressive medical therapy with metoprolol succinate, increased dose of lisinopril and spironolactone. His degree of left ventricular dysfunction does put him in a category of patients who are often advised to undergo ICD implantation as primary prevention against sudden cardiac . However, I think there is still the option of more aggressive medical therapy. I do not believe there is an urgent indication for an ICD. This issue can be readdressed in the outpatient setting. (3) CAD (coronary artery disease), [place] coronary artery: Plan: No current symptoms suggestive of ischemia or coronary insufficiency. Will continue metoprolol, aspirin, Plavix and atorvastatin. (4) Hyperlipidemia LDL goal <70: Plan: -continue atorvastatin. Admission and Anticipated Discharge Date Admission Date: September 11, 2021 Subjective this afternoon the patient claims to be feeling well. He did not report significant breathing trouble but does recognize that he still has significant edema. No sense of palpitation. He did not report pain. Reported being tired. Review of Systems Review of Systems: Per HPI Physical Exam Physical Exam: Constitutional: Alert, oriented, in no acute distress sclerae anicteric Pulmonary: bibasilar crackles. No expiratory wheezing. Normal respiratory effort. Cardiac: Regular rate and rhythm. Normal S1 and S2, no gallops, no rubs, no murmurs Extremities: 2+ radial pulses bilaterally. L BKA. 1+ pitting edema on the R. 1-2+ BUE pitting edema, Left worse than right. Abdominal distension with dependent subcutaneous edema. Skin: Normal skin color, turgor, and pigmentation, no rash, no skin lesions Neurological: Patient is awake, alert, and oriented. Pleasant and cooperative. Answers questions appropriately. Speech is clear. Results & Data ([facility]) Vital Signs (Past 12 Hours) Vital Signs Temp Pulse Pulse Resp BP Pulse Ox 09/14/21 11:59 36.4 C L 68 17 144/84 H 97 09/14/21 10:07 70 09/14/21 08:03 36.8 C 65 18 157/94 H 94 09/14/21 02:45 36.5 C 68 18 158/85 H 95 Laboratory Results Abnormal Lab Results 09/13/21 09/13/21 09/13/21 16:15 21:06 23:48 WBC RBC Hgb Hct MCV MCH MCHC RDW Std Deviation RDW Coeff of Vel Plt Count MPV Sodium Potassium Chloride Carbon Dioxide Anion Gap BUN Creatinine Est Cr Clr Drug Dosing Est GFR ( Amer) Est GFR (Non-Af Amer) BUN/Creatinine Ratio Glucose POC Glucose 81 134 H 101 H Calcium Phosphorus Magnesium Vancomycin Trough 09/14/21 09/14/21 09/14/21 04:19 06:58 06:58 WBC 4.46 L RBC 3.70 L Hgb 10.7 L Hct 31.7 L MCV 85.7 MCH 28.9 MCHC 33.8 RDW Std Deviation 55.9 H RDW Coeff of Vel 17.7 H Plt Count 232 MPV 9.0 Sodium 139 Potassium 4.0 Chloride 104 Carbon Dioxide 30 Anion Gap 6.0 BUN 21 H Creatinine 0.95 Est Cr Clr Drug Dosing 89.8 Est GFR ( Amer) 93.6 Est GFR (Non-Af Amer) 80.8 BUN/Creatinine Ratio 22.4 H Glucose 85 POC Glucose 87 Calcium 8.5 Phosphorus 4.1 Magnesium 1.8 Vancomycin Trough 09/14/21 09/14/21 09/14/21 07:23 11:29 13:52 WBC RBC Hgb Hct MCV MCH MCHC RDW Std Deviation RDW Coeff of Vel Plt Count MPV Sodium Potassium Chloride Carbon Dioxide Anion Gap BUN Creatinine Est Cr Clr Drug Dosing Est GFR ( Amer) Est GFR (Non-Af Amer) BUN/Creatinine Ratio Glucose POC Glucose 86 116 H Calcium Phosphorus Magnesium Vancomycin Trough 18.2 Diagnostic Findings Echocardiogram performed 09/11/2021: Ejection fraction 25-30 percent. Apical akinesis. Moderate mitral regurgitation. PG Care Time/CCT Total # of Minutes Spent Total Time Spent with Patient: Total time spent is greater than 50% in coordination of care (as documented) at patient's floor/unit and/or counseling patient: Coding Level of Care Code 65938 Subseq Hosp Care Lvl 2 Diagnoses Acute on chronic HFrEF (heart failure with reduced ejection fraction) I50.23 Ischemic cardiomyopathy I25.5 CAD (coronary artery disease), [place] coronary artery I25.10 Hyperlipidemia LDL goal <70 E78.5
--- NOTE | 2021-09-14 14:56 | Pharmacy Report ---
Pharmacy Vanc AUC Short Note - Date of Service September 14, 2021 - Assessment & Plan Assessment 71 year old M receiving vancomycin for treatment of cellulitis. Planned I&D tomorrow. Plan Vancomycin * AUC/MIGUEL is the preferred PK/PD target for vancomycin * AUC guided dosing is effective and associated with decreased risk of nephrotoxicity compared to traditional trough targets * Trough level 18.2 mg/L, will decrease dose slightly, dose predicting slightly higher than 600 mg/L.hr goal, will decrease dose to 1000 mg q12H * Trough to be ordered based upon clinical picture Pharmacy will continue to follow and will adjust dose/frequency as necessary. Thank you.
[2021-09-14] MEDS: TAMSULOSIN HCL 0.4 MG CAP PO SCH (20:16)
[2021-09-14] MEDS: ATORVASTATIN 40 MG TAB PO SCH (20:16)
[2021-09-14] MEDS: ENOXAPARIN INJ 40 MG/0.4 ML SYR SQ SCH (20:17)
[2021-09-15] MEDS ORDERED: Nursing to Pharmacy Communication SCH ×2 (00:15→20:00)
[2021-09-15] MEDS: INSULIN ASPART 100 UNITS/ML 3 ML PEN SC SCH ×5 (00:27→20:37)
[2021-09-15] MEDS: VANCOMYCIN HCL 1,000 MG in SODIUM CHLORIDE 0.9% 250 ML IV SCH ×2 (03:03→15:21)
[2021-09-15 06:05] LABS: Hematocrit (blood only) 31.3 % (42-52); Hemoglobin 10.4 g/dL (14.0-18.0); Mean Corpuscular Hemoglobin 28.5 pg (25-34); Mean Corpuscular Hgb Conc 33.2 g/dL (32-36); Mean Corpuscular Volume 85.8 fL (80-100); Mean Platelet Volume 9.2 fL (7.4-10.4); Platelet Count 229 K/uL (130-400); RDW Coefficient of Variation 17.4 % (11.5-14.5); RDW Standard Deviation 54.6 fL (36.4-46.3); Red Blood Count 3.65 M/uL (4.7-6.1); White Blood Count 4.11 K/uL (4.8-10.8)
[2021-09-15 06:36] LABS: BUN Creatinine Ratio 24.2 (10-20); Calcium 8.3 mg/dl (8.5-10.1); Creatinine Clr Calc Pharmacy 91.5 ml/min; Est GFR (African American) 97.3 ml/min; Magnesium 1.8 mg/dl (1.8-2.4); Potassium 3.9 mmol/L (3.5-5.1)
[2021-09-15 06:40] LABS: Phosphorus 3.4 mg/dl (2.5-4.9)
--- NOTE | 2021-09-15 08:39 | Magnetic Resonance Report ---
MR ankle RT wo con CLINICAL HISTORY: 71 years-old Male with r heel wound, r/o osteo. Chronic soft tissue wound of the r ight hindfoot. Clinical concern for osteomyelitis. COMPARISON: Right ankle radiographs 02/12/2021 TECHNIQUE: Multiplanar, multi sequence MRI of the right ankle was performed without contrast. FINDINGS: Motion degraded exam. LATERAL LIGAMENT COMPLEX: The anterior talofibular ligament, calcaneofibular ligament and posterior t alofibular ligaments are intact. SYNDESMOTIC LIGAMENTS: Chronic sprain of the anterior-inferior tibiofibular ligament and posterior-in ferior tibiofibular ligaments. The interosseous membrane is likely intact. DELTOID LIGAMENT COMPLEX: Chronic sprain of the deltoid ligament. ANTERIOR TENDONS: The tibialis anterior, extensor hallucis longus and extensor digitorum longus tendo ns are normal in position, morphology and signal. LATERAL TENDONS: Moderate tendinosis with high-grade split tear of the supra and inframalleolar segme nts of the peroneus longus extends for a length of at least 5 cm. Tendinosis with probable split tear of the inframalleolar segment of the peroneus brevis. MEDIAL TENDONS: Moderate tendinosis of the tibialis posterior. The flexor digitorum longus and flexor hallucis longus tendons are intact. PLANTAR FASCIA: Moderate thickening of the medial cord of the plantar fascia suggestive of chronic fa sciitis. No evidence of plantar fascial nodules. ACHILLES TENDON: The Achilles tendon is normal in position, morphology and signal. No associated burs itis. SINUS TARSI: Moderate edema within the sinus Tarsi. The interosseous and cervical ligaments are nelson l. The navicular-calcaneal (spring) ligament is without acute abnormality. TARSAL TUNNEL: There are no obstructing lesions within the tarsal tunnel. BONE MARROW: No acute fracture or marrow replacing process. Mild subcortical cystic change/edema of t he cuboid. No osseous erosions to suggest osteomyelitis. There is mild multifocal osteoarthritis. Sma ll tibiotalar, subtalar and calcaneocuboid effusions. There is moderate diffuse subcutaneous edema. Muscle atrophy with diffuse intramuscular edema. No abs cess. IMPRESSION: 1. Diffuse subcutaneous edema suggestive of cellulitis, lymphedema or venous stasis. Muscle atrophy w ith extensive intramuscular edema is suggestive of chronic denervation changes. 2. No acute fracture, significant marrow edema or evidence of osteomyelitis. 3. Additional findings as above. ACT 112: Negative or not required by law. The above report was generated using voice recognition software. It may contain grammatical, syntax o r spelling errors. Dictated: 09/15/2021 7:56 AM Transcribed: 09/15/2021 8:24 AM Rashida [id number] Electronically signed by: Edilberto Foy M.D. 09/15/2021 8:37 AM
[2021-09-15] MEDS: FUROSEMIDE 40 MG in SYRINGE 0 ML IV SCH (09:07)
[2021-09-15] MEDS: SPIRONOLACTONE 12.5 MG TAB PO SCH (09:08)
[2021-09-15] MEDS: GABAPENTIN 100 MG CAP PO SCH ×2 (09:08→19:54)
[2021-09-15] MEDS: ASPIRIN 81 MG ECTAB PO SCH (09:08)
[2021-09-15] MEDS: MAGNESIUM OXIDE 400 MG TAB PO SCH ×2 (09:08→19:54)
[2021-09-15] MEDS: FERROUS SULFATE 325 MG TAB PO SCH ×3 (09:08→19:06)
[2021-09-15] MEDS: METOPROLOL SUCC 50MG EXT REL TAB PO SCH (09:09)
[2021-09-15] MEDS: lisinopril 10 MG TAB PO SCH (09:09)
[2021-09-15] MEDS: PANTOprazole 40 MG TAB PO SCH (09:09)
[2021-09-15] MEDS: CLOPIDOGREL BISULFATE 75 MG TAB PO SCH (09:09)
--- NOTE | 2021-09-15 09:53 | Cardiology Progress Note ---
Date of Service September 15, 2021 Assessment & Plan (1) Acute on chronic HFrEF (heart failure with reduced ejection fraction): Plan: will continue his current dose of diuretic. Renal function stable. Still very edematous. (2) Ischemic cardiomyopathy: Plan: Continue current medical management with metoprolol, lisinopril and spironolactone. (3) CAD (coronary artery disease), [place] coronary artery: Plan: No current symptoms suggestive of ischemia or coronary insufficiency. Will continue metoprolol, aspirin, Plavix and atorvastatin. (4) Hyperlipidemia LDL goal <70: Plan: -continue atorvastatin. Plan: I will be away from the hospital for the next 2 days. If there are questions regarding his cardiac care, please contact the on-call Duane evans ologist. Admission and Anticipated Discharge Date Admission Date: September 11, 2021 Subjective This morning patient claims to be feeling well. He denies any breathing difficulty. He was lying flat in bed. He seems to feel that the edema in his arms is improved. No pain. Review of Systems Review of Systems: Per HPI Physical Exam Physical Exam: Constitutional: Alert, oriented, in no acute distress sclerae anicteric Pulmonary: bibasilar crackles. No expiratory wheezing. Normal respiratory effort. Cardiac: Regular rate and rhythm. Normal S1 and S2, no gallops, no rubs, no murmurs Extremities: 2+ radial pulses bilaterally. L BKA. 1+ pitting edema on the R. 1-2+ BUE pitting edema, Left worse than right. Abdominal distension with dependent subcutaneous edema. Skin: Normal skin color, turgor, and pigmentation, no rash, no skin lesions Neurological: Patient is awake, alert, and oriented. Pleasant and cooperative. Answers questions appropriately. Speech is clear. Results & Data ([facility]) Vital Signs (Past 12 Hours) Vital Signs Temp Pulse Pulse Resp BP BP Pulse Ox 09/15/21 08:12 69 09/15/21 07:40 36.6 C 76 17 144/89 H 92 09/15/21 03:24 36.4 C L 72 20 144/84 H 93 09/15/21 00:02 36.7 C 76 20 146/81 H 95 Laboratory Results Abnormal Lab Results 09/14/21 09/14/21 09/14/21 11:29 13:52 16:07 WBC RBC Hgb Hct MCV MCH MCHC RDW Std Deviation RDW Coeff of Vel Plt Count MPV Sodium Potassium Chloride Carbon Dioxide Anion Gap BUN Creatinine Est Cr Clr Drug Dosing Est GFR ( Amer) Est GFR (Non-Af Amer) BUN/Creatinine Ratio Glucose POC Glucose 116 H 96 Calcium Phosphorus Magnesium Vancomycin Trough 18.2 09/14/21 09/15/21 09/15/21 20:22 00:07 05:34 WBC 4.11 L RBC 3.65 L Hgb 10.4 L Hct 31.3 L MCV 85.8 MCH 28.5 MCHC 33.2 RDW Std Deviation 54.6 H RDW Coeff of Vel 17.4 H Plt Count 229 MPV 9.2 Sodium Potassium Chloride Carbon Dioxide Anion Gap BUN Creatinine Est Cr Clr Drug Dosing Est GFR ( Amer) Est GFR (Non-Af Amer) BUN/Creatinine Ratio Glucose POC Glucose 204 H 157 H Calcium Phosphorus Magnesium Vancomycin Trough 09/15/21 09/15/21 05:34 06:12 WBC RBC Hgb Hct MCV MCH MCHC RDW Std Deviation RDW Coeff of Vel Plt Count MPV Sodium 136 Potassium 3.9 Chloride 104 Carbon Dioxide 31 Anion Gap 1.0 L BUN 22 H Creatinine 0.92 Est Cr Clr Drug Dosing 91.5 Est GFR ( Amer) 97.3 Est GFR (Non-Af Amer) 84.0 BUN/Creatinine Ratio 24.2 H Glucose 122 H POC Glucose 116 H Calcium 8.3 L Phosphorus 3.4 Magnesium 1.8 Vancomycin Trough PG Care Time/CCT Total # of Minutes Spent Total Time Spent with Patient: Total time spent is greater than 50% in coordination of care (as documented) at patient's floor/unit and/or counseling patient: Coding Level of Care Code 20170 Subseq Hosp Care Lvl 2 Diagnoses Acute on chronic HFrEF (heart failure with reduced ejection fraction) I50.23 Ischemic cardiomyopathy I25.5 CAD (coronary artery disease), [place] coronary artery I25.10 Hyperlipidemia LDL goal <70 E78.5
--- NOTE | 2021-09-15 13:50 | Pharmacy Report ---
Pharmacy Glycemic Short Note 2 - Date of Service September 15, 2021 - Glycemic Short BSG Results (Last 24 hours): 09/14/21 09/14/21 09/15/21 16:07 20:22 00:07 Glucose POC Glucose 96 204 H 157 H 09/15/21 09/15/21 09/15/21 05:34 06:12 13:14 Glucose 122 H POC Glucose 116 H 110 H OUTPATIENT ANTIDIABETIC REGIMEN: * metformin 850 mg BID ASSESSMENT: 09/15/21 * Patient's BSGs yesterday were [phone]. Patient received 10 units of insulin (8 units of basal and 2 units of correctional). * Patient is NPO today. Hold basal insulin for now. * Continue Novolog. Background * Mr Coffman is a 71 y/o M with a PMH of T2DM on metformin who presents with an infection. * Patient's BSGs yesterday were [phone] and patient received 33 units of insulin (15 units of basal and 18 units of bolus). * Patient's fasting today was 56 and lunch was 85 mg/dL. * Per previous visit, Lantus 8 units daily produced excellent fastings. * Will plan for Lantus 8 units starting on 09/14 to allow for patient's BSGs to recover. Overnight checks to ensure patient does not suffer rebound hyperglycemia. * Novolog weight-based stress of 2. PLAN FOR INPATIENT GLYCEMIC CONTROL: * Hold outpatient oral diabetes medications * Basal insulin * Lantus 8 units SQ daily - hold today due to NPO status. * Bolus insulin * NovoLog per scale ACHS or Q6hrs while NPO * Goal Range: Low 120 mg/dL - High 160 mg/dL * Correction Factor: 25 mg/dL/unit * Nutritional / Prandial insulin per carb ratio of 1 unit per 8 grams CHO consumed PLAN FOR DISCHARGE: * Patient's HbA1C is well controlled and at goal. Can continue current regimen.
[2021-09-15] MEDS ORDERED: ONDANSETRON INJ 2 MG/ML 2 ML VIAL ONE ×2 (14:29→17:59)
[2021-09-15] MEDS ORDERED: PROPOFOL IV EMULSION 10 MG/ML 20 ML VIAL IV ONE (14:29)
[2021-09-15] MEDS ORDERED: fentaNYL citrate 100 MCG/2 ML VIAL ONE (14:29)
[2021-09-15] MEDS ORDERED: LIDOCAINE 2% 2 ML VIAL/AMP(20MG/ML) INFIL ONE (14:29)
--- NOTE | 2021-09-15 14:54 | Anesthesiology Consultation ---
Date of Service September 15, 2021 Assessment & Plan (1) Encounter for pre-operative examination: Chart Review Chart Review: Acceptable Risk for Surgery and Patient NOT seen in Pre Admission Testing Consults Requested none History Surgery Operation Date: 09/15/21 07:00 Proposed Procedures p Irrigation and Debridement Left Below Knee Amputation Wound, possible Theraskin Graft, Possible Irrigation and Debridement of Right Heal Ulcer - Bright English, Height/Weight Height: 5 ft 11 in Weight: 103.6 kg Allergies Allergy/AdvReac Type Severity Reaction Status Date / Time No Known Allergies Allergy Verified 09/11/21 11:13 Medications Home Medications Medication Instructions Recorded Confirmed Last Taken aspirin 81 mg tablet,delayed 81 mg PO QAM 06/09/21 09/11/21 09/11/21 release atorvastatin 80 mg tablet (Lipitor) 80 mg PO HS 06/09/21 09/11/21 09/10/21 clopidogrel 75 mg tablet (Plavix) 75 mg PO QAM 06/09/21 09/11/21 09/11/21 folic acid 3 mg-vit B complex with 1 tab PO QAM 06/09/21 09/11/21 09/11/21 C-selenium 70 mcg-zinc 15 mg tablet gabapentin 100 mg capsule 200 mg PO BID 30 Days #120 cap 06/22/21 09/11/21 1 lisinopril 5 mg tablet (Zestril) 5 mg PO QAM 30 Days #30 tab 06/22/21 09/11/21 09/11/21 tamsulosin 0.4 mg capsule 0.4 mg PO HS 30 Days #30 cap 06/22/21 09/11/21 09/10/21 metoprolol succinate 50 mg 50 mg PO DAILY tab 08/24/21 09/11/21 09/11/21 tablet,extended release 24 hr ferrous sulfate 325 mg (65 mg 325 mg PO TID 09/11/21 09/11/21 09/11/21 iron) tablet metformin 850 mg tablet 850 mg PO BID 09/11/21 09/11/21 09/11/21 pantoprazole 40 mg tablet,delayed 40 mg PO DAILY 09/11/21 09/11/21 09/11/21 release Active Medications Generic Name Dose Route Start Last Admin Trade Name Freq PRN Reason Stop Dose Admin Acetaminophen 650 mg 09/11/21 19:44 09/11/21 20:27 Acetaminophen 325 Mg Tab PO 10/11/21 19:43 650 mg Q4H PRN Administration Pain or Fever Aspirin 81 mg 09/12/21 09:00 09/15/21 09:08 Aspirin 81 Mg Ectab PO 10/12/21 08:59 81 mg QAM REESE Administration Atorvastatin Calcium 80 mg 09/11/21 21:00 09/14/21 20:16 Atorvastatin 40 Mg Tab PO 10/11/21 20:59 80 mg HS REESE Administration Clopidogrel Bisulfate 75 mg 09/12/21 09:00 09/15/21 09:09 Clopidogrel Bisulfate 75 Mg Tab PO 10/12/21 08:59 75 mg QAM REESE Administration Enoxaparin Sodium 40 mg 09/11/21 22:00 09/14/21 20:17 Enoxaparin Inj 40 Mg/0.4 Ml Syr SQ 10/11/21 21:59 40 mg Q24H REESE Administration Ferrous Sulfate 325 mg 09/11/21 21:00 09/15/21 13:15 Ferrous Sulfate 325 Mg Tab PO 10/11/21 20:59 Not Given TIDM REESE Gabapentin 200 mg 09/11/21 21:00 09/15/21 09:08 Gabapentin 100 Mg Cap PO 10/11/21 20:59 200 mg BID REESE Administration Furosemide 40 mg/ Syringe 4 mls @ 4 mls/min 09/12/21 09:00 09/15/21 09:07 IV 10/12/21 08:59 4 mls/min DAILY REESE Administration Vancomycin HCl 1,000 mg/ 270 mls @ 200 mls/hr 09/15/21 02:00 09/15/21 04:30 Sodium Chloride IV 09/22/21 01:59 Infused Q12H REESE Infusion Insulin Aspart 0 units 09/15/21 00:00 09/15/21 13:14 Insulin Aspart 100 Units/Ml 3 Ml Pen SC 10/15/21 00:00 Not Given Q6 REESE Insulin Glargine 8 units 09/14/21 09:00 09/14/21 08:49 Insulin Glargine Solostar 100 Units/Ml 3 Ml Pen SC 10/14/21 08:59 8 units DAILY REESE Administration Lisinopril 10 mg 09/13/21 09:00 09/15/21 09:09 Lisinopril 10 Mg Tab PO 10/13/21 08:59 10 mg QAM REESE Administration Magnesium Oxide 400 mg 09/13/21 12:30 09/15/21 09:08 Magnesium Oxide 400 Mg Tab PO 10/13/21 12:29 400 mg BID REESE Administration Metoprolol Succinate 50 mg 09/12/21 09:00 09/15/21 09:09 Metoprolol Succ 50mg Ext Rel Tab PO 10/12/21 08:59 50 mg DAILY REESE Administration Miscellaneous 15 - 30 gm 09/11/21 19:44 09/13/21 07:10 Carbohydrates For Hypoglycemia PO 10/11/21 19:43 15 gm UD PRN Administration Hypoglycemia Protocol Pantoprazole Sodium 40 mg 09/12/21 09:00 09/15/21 09:09 Pantoprazole 40 Mg Tab PO 10/12/21 08:59 40 mg DAILY REESE Administration Spironolactone 12.5 mg 09/14/21 09:00 09/15/21 09:08 Spironolactone 12.5 Mg Tab PO 10/14/21 08:59 12.5 mg DAILY REESE Administration Tamsulosin HCl 0.4 mg 09/11/21 21:00 09/14/21 20:16 Tamsulosin Hcl 0.4 Mg Cap PO 10/11/21 20:59 0.4 mg HS REESE Administration Past Medical History Medical History Anemia CAD (coronary artery disease), [place] coronary artery 02/12/2021: PCI with HERNANDEZ to the distal left main and proximal LAD. Additional distal LAD disease. Large non dominant left circumflex with moderate diffuse disease. Long subtotal occlusion of the distal vessel. Large dominant RCA with focal 70-80% lesion in the mid vessel. Diffuse [id number] distal disease. Diabetes mellitus Elevated troponin I level Family history non-contributory History of CVA with residual deficit History of left below knee amputation Hyperlipidemia LDL goal <70 Ischemic cardiomyopathy LBBB (left bundle branch block) Mitral regurgitation Paroxysmal atrial fibrillation Peripheral vascular disease Symptomatic anemia Past Family History Family History Other Diabetes Past Surgical History Surgical History History of coronary artery stent placement History of right common carotid artery stent placement Status post below-knee amputation of left lower extremity Dr English 06/2021 Social History Smoking Status: Former smoker tobacco type: cigarettes Do You Dip or Chew Tobacco: No Hx Alcohol Use: Yes Alcohol type: beer alcohol intake frequency: holidays/special occasions only Hx Substance Use: No Physical Exam Vital Signs Last Vital Signs Temp 36.8 C 09/15/21 11:30 Pulse 83 09/15/21 11:30 Resp 18 09/15/21 11:30 BP 148/88 H 09/15/21 11:30 Pulse Ox 95 09/15/21 11:30 Testing Laboratory Results 09/15/21 05:34 09/15/21 05:34 PT 11.6 Seconds (9.0-12.0) 09/11/21 11:15 INR 1.2 (0.9-1.1) H 09/11/21 11:15 APTT 29.1 Seconds (21.0-31.0) 09/11/21 11:15 Hemoglobin A1c 6.5 % (4.5-5.6) H 09/12/21 06:01 Urine Color Yellow 09/11/21 20:37 Urine Appearance Clear (Clear) 09/11/21 20:37 Urine pH 5.0 (4.5-7.5) 09/11/21 20:37 Ur Specific [place] 1.007 (1.000-1.030) 09/11/21 20:37 Urine Protein Negative (Negative) 09/11/21 20:37 Urine Glucose (UA) Negative (Negative) 09/11/21 20:37 Urine Ketones Negative (Negative) 09/11/21 20:37 Urine Nitrite Negative (Negative) 09/11/21 20:37 Ur Leukocyte Esterase Negative (Negative) 09/11/21 20:37 09/12/21 12:31 Aerobic Blood Culture - Preliminary Blood No growth in Aerobic bottle after 48 hours. Anaerobic Blood Culture - Preliminary No growth in Anaerobic bottle after 48 hours. 09/12/21 12:34 Aerobic Blood Culture - Preliminary Blood No growth in Aerobic bottle after 48 hours. Anaerobic Blood Culture - Preliminary No growth in Anaerobic bottle after 48 hours. 09/12/21 09:03 Gram Stain - Final Leg,Left Wound Culture - Final Moderate counts mixed probable skin microbiota. No further identifications or sensitivities to follow. 09/15/21 09/15/21 13:14 06:12 POC Glucose 110 H 116 H Electrocardiogram Date: 09/13/21 Sinus rhythm (66) with 1st degree A-V block with Premature supraventricular complexes Left axis deviation Abnormal ECG When compared with ECG of 12-SEP-2021 05:39, Premature ventricular complexes are no longer Present Premature supraventricular complexes are now Present Chest X-Ray Date: 09/11/21 IMPRESSION: 1. Cardiomegaly without radiographic evidence of congestive failure. 2. There are right larger than left pleural effusions with associated bibasilar consolidation. This likely represents atelectasis, and clinical correlation will be required. The effusions are new from 06/09/2021. Echocardiogram Date: 09/11/21 EF: 25-30% LV systolic function is moderate to severely reduced, moderate to severe global hypokinesis of the left ventricle, apical akinesis, mild to moderate mitral regurgitation, mild tricuspid regurgitation Cardiac Catheterization Date: 02/12/21 Summary of Findings LMT: distal 95-99% calcified stenosis. LAD: proximal diffuse disease. 80-90% long calcified stenosis. mid-diffuse long eccentric 70-80%. distal early focal 99% calcified disese. S1-ok, [id number] caliber long branching with diffuse moderate disease. Receives significant R-L collaterals. LCx: Large, nondominant. p-ok, then AV groove vessel gives 2 small OMs with high origin. A medium branching OM3 with diffuse mild to moderate disease. AV groove vessel after OM3 with long subtotal occlusion. Terminates in small PLB. Receives R-L collaterals (faint) RCA: large and dominant. p-diffuse mild then focal 70-80% in mid vessel. Distal diffuse mild disease and calcification. PDA and PLB with diffuse mild to moderate disease. PCI: 3 overlapped HERNANDEZ covering dLM, pLAD. (3.0x12 mm, 2.26b07nl, 2.75 x15 mm eliana) no dissection/perforation post PCI
--- NOTE | 2021-09-15 16:08 | History & Physical Bridge Note ---
Date of Service September 15, 2021 History & Physical Bridge Note I have examined the patient, reviewed the History & Physical and in the interval since the performance of the History & Physical I have noted the following changes of clinical significance: Will require irrigation and debridement left lower leg delayed healing ulcer with application of Theraskin skin graft.
[2021-09-15] MEDS ORDERED: ONDANSETRON INJ 2 MG/ML 2 ML VIAL IV PRN ×2 (16:35→18:06)
[2021-09-15] MEDS ORDERED: ATROPINE SULFATE 0.1 MG/ML 10ML SYR IV PRN (16:35)
[2021-09-15] MEDS ORDERED: ePHEDrine sulfate 50 MG/ML AMP IV PRN (16:35)
[2021-09-15] MEDS ORDERED: HYDROmorphone INJ 2 MG/ML SYR/VIAL IV PRN (16:35)
[2021-09-15] MEDS ORDERED: fentaNYL citrate 100 MCG/2 ML VIAL IV PRN (16:35)
--- NOTE | 2021-09-15 17:30 | History & Physical Bridge Note ---
Date of Service September 15, 2021 History & Physical Bridge Note I have examined the patient, reviewed the History & Physical and in the interval since the performance of the History & Physical I have noted the following changes of clinical significance: Will require irrigation and debridement left lower leg delayed healing ulcer with application of Theraskin skin graft and possible irrigation debridement right heel ulceration.
[2021-09-15] MEDS ORDERED: ETOMIDATE 2 MG/ML 20 ML VIAL IV ONE (17:59)
[2021-09-15] MEDS ORDERED: PHENYLEPHRINE HCL 10 MG/ML VIAL ONE (17:59)
[2021-09-15] MEDS ORDERED: traMADol HCL 50 MG TABLET PO PRN (18:06)
[2021-09-15] MEDS ORDERED: NALOXONE HCL 0.4 MG/1 ML VIAL/CARP IV PRN (18:06)
[2021-09-15] MEDS ORDERED: MAGNESIUM HYDROXIDE SUSP 30 ML UDC PO PRN (18:06)
[2021-09-15] MEDS ORDERED: METOCLOPRAMIDE HCL INJ 5 MG/ML 2 ML VIAL IV PRN (18:06)
[2021-09-15] MEDS ORDERED: bisacodyL 10 MG SUPP PR PRN (18:06)
[2021-09-15] MEDS ORDERED: HYDROmorphone INJ 0.5 MG/0.5 ML SYR IV PRN (18:06)
--- NOTE | 2021-09-15 18:26 | Hospitalist Progress Note ---
Date of Service September 15, 2021 Assessment & Plan (1) Acute on chronic HFrEF (heart failure with reduced ejection fraction): (2) Ischemic cardiomyopathy: (3) CAD (coronary artery disease), [place] coronary artery: (4) Diabetes mellitus: (5) HTN (hypertension): (6) Hypomagnesemia: (7) Surgical wound, non healing: (8) Diabetic ulcer of right heel: (9) Hyperlipidemia LDL goal <70: (10) Carotid stenosis: (11) History of CVA with residual deficit: Plan: Patient is 71 yr male with PMH of CAD with history of HERNANDEZ x3 to distal main and LAD 01/2021, chronic HFrEF EF 30 to 35%, moderate MR, history of right carotid artery stenosis status post stent placement, history of PAD and dry gangrene to left great toe and 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 Acute on chronic HFrEF Ischemic cardiomyopathy CAD S/P HERNANDEZ x3 01/2021, recommendation was CABG and patient declined EF: 20-25% Appreciate Cardiology Input Continue IV diuretics Strict I's and O's, daily weights Continue low-sodium diet, fluid restriction Continue ASA, Plavix, statin, metoprolol and lisinopril Started also on spironolactone Nonhealing wound of left BKA stump Wound/Blood Cx pending H/O MRSA Started on Vancomycin empirically Appreciate Orthopedics Input Planned for irrigation and debridement possibly on Saturday 09/15 Now s/p Irrigation and Debridement Left Below Knee Amputation Wound 5.5cm x 2.4cm x 0.3 cm including skin, subcutaneous tissue and periwound slough, application 5.5 cm x 2.4 cm x 0.3 cm Theraskin Allograft distal medial below- knee amputation stump (Left) - Bright English, R heel wound Pt follows with wound care clinic, Maria E PEREZ Discussed with Maria E, who recommends to obtain MRI of heel while in the hospital Orthopedics aware about the plan for MRI R ankle MRI IMPRESSION: 1. Diffuse subcutaneous edema suggestive of cellulitis, lymphedema or venous stasis. Muscle atrophy with extensive intramuscular edema is suggestive of chronic denervation changes. 2. No acute fracture, significant marrow edema or evidence of osteomyelitis. 3. Additional findings as above. 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 English 06/2021 follows w/ wound clinic and Dr. Wilkerson for PAD Plan was to obtain arterial Doppler for right lower extremity, will obtain now IMPRESSION: 1. Elevated peak systolic velocities within the anterior tibial artery are compatible with hemodynamically significant stenosis. 2. No arterial occlusion. 3. Normal triphasic waveforms above the level of the knee. 4. Abnormal toe brachial index of 0.23. Dr. Wilkerson aware of pt being in the hospital and study obtained above Continue home meds DM II HbA1C:6.5 Hold Metformin Lantus/NovoLog per protocol Hypertension On metoprolol and lisinopril Increase lisinopril to 10mg daily Hypomagnesemia Replace as needed Hyperlipidemia Continue statin H/O CVA with residual left-sided weakness Right internal carotid artery stenosis Continue ASA and statin S/P stent to right internal carotid artery DVT px: Lovenox SQ Code Status FULL CODE Admission and Anticipated Discharge Date Admission Date: September 11, 2021 Subjective Patient seen in follow-up of CHF, and left BKA wound, R heel wound States feeling well Denies any chest pain, dyspnea, dizziness, nausea, abdominal pain Currently on room air, speaking in full sentences, but still edematous Discussed with ANA Collins, patient's wound care provider - obtained arterial Dopplers as was previously planned by Dr. Wilkerson. Obtained MRI of his right heel to r/o osteo. Now status post I&D of left BKA stump with orthopedics. Review of Systems Review of Systems: All systems reviewed & are unremarkable except as noted in Subjective Physical Exam Physical Exam: General Appearance:Moderately built and nourished, no apparent distress Head: normocephalic, Atraumatic Eyes: normal inspection, EOMI Neck: supple, Trachea midline Respiratory/Chest: Decreased breath sounds, CTA, No accessory muscle use Cardiovascular: S1, S2, No murmur Abdomen/GI: Soft, Non tender, Bowel sounds present Extremities/Musculoskeletal: normal inspection, left below-knee amputation (now in post-surg. dressings), + stump wound, + b/l LE edema, +LUE edema , R foot in dressings Neurologic/Psych:AAOX3, speech fluent, no facial asymmetry, moves extremities Skin: normal color, warm Results & Data Results & Data ([facility]) Vital Signs (Past 12 Hours) Vital Signs Temp Pulse Pulse Resp BP Pulse Ox 09/15/21 16:17 37 C 76 18 159/91 H 97 09/15/21 11:30 36.8 C 83 18 148/88 H 95 09/15/21 08:12 69 09/15/21 07:40 36.6 C 76 17 144/89 H 92 Laboratory Results 09/15/21 09/15/21 09/15/21 Range/Units 13:14 06:12 05:34 WBC (4.8-10.8) K/uL RBC (4.7-6.1) M/uL Hgb (14.0-18.0) g/dL Hct (42-52) % MCV (80-100) fL MCH (25-34) pg MCHC (32-36) g/dL RDW Std Deviation (36.4-46.3) fL RDW Coeff of Vel (11.5-14.5) % Plt Count (130-400) K/uL MPV (7.4-10.4) fL Sodium 136 (136-145) mmol/L Potassium 3.9 (3.5-5.1) mmol/L Chloride 104 (98-107) mmol/L Carbon Dioxide 31 (21-32) mmol/L Anion Gap 1.0 L (3-11) BUN 22 H (7-18) mg/dl Creatinine 0.92 (0.6-1.4) mg/dl Est Cr Clr Drug Dosing 91.5 ml/min Est GFR ( Amer) 97.3 ml/min Est GFR (Non-Af Amer) 84.0 ml/min BUN/Creatinine Ratio 24.2 H (10-20) Glucose 122 H (70-99) mg/dl POC Glucose 110 H 116 H (70-99) mg/dl Calcium 8.3 L (8.5-10.1) mg/dl Phosphorus 3.4 (2.5-4.9) mg/dl Magnesium 1.8 (1.8-2.4) mg/dl 09/15/21 09/15/21 09/14/21 Range/Units 05:34 00:07 20:22 WBC 4.11 L (4.8-10.8) K/uL RBC 3.65 L (4.7-6.1) M/uL Hgb 10.4 L (14.0-18.0) g/dL Hct 31.3 L (42-52) % MCV 85.8 (80-100) fL MCH 28.5 (25-34) pg MCHC 33.2 (32-36) g/dL RDW Std Deviation 54.6 H (36.4-46.3) fL RDW Coeff of Vel 17.4 H (11.5-14.5) % Plt Count 229 (130-400) K/uL MPV 9.2 (7.4-10.4) fL Sodium (136-145) mmol/L Potassium (3.5-5.1) mmol/L Chloride (98-107) mmol/L Carbon Dioxide (21-32) mmol/L Anion Gap (3-11) BUN (7-18) mg/dl Creatinine (0.6-1.4) mg/dl Est Cr Clr Drug Dosing ml/min Est GFR ( Amer) ml/min Est GFR (Non-Af Amer) ml/min BUN/Creatinine Ratio (10-20) Glucose (70-99) mg/dl POC Glucose 157 H 204 H (70-99) mg/dl Calcium (8.5-10.1) mg/dl Phosphorus (2.5-4.9) mg/dl Magnesium (1.8-2.4) mg/dl Medications Administered Current Inpatient Medications Acetaminophen (Acetaminophen 325 Mg Tab) 650 mg PO Q4H PRN PRN Reason: Pain or Fever Stop: 10/11/21 19:43 Last Admin: 09/11/21 20:27 Dose: 650 mg Documented by: Al Hydrox/Mg Hydrox/Simethicone (Aluminum/Magnesium Susp 30 Ml Udc) 15 ml PO Q4H PRN PRN Reason: Dyspepsia Stop: 10/11/21 19:43 Aspirin (Aspirin 81 Mg Ectab) 81 [facility] [place]: 10/12/21 08:59 Last Admin: 09/15/21 09:08 Dose: 81 mg Documented by: Atorvastatin Calcium (Atorvastatin 40 Mg Tab) 80 mg PO HS [facility] Stop: 10/11/21 20:59 Last Admin: 09/14/21 20:16 Dose: 80 mg Documented by: Atropine Sulfate (Atropine Sulfate 0.1 Mg/Ml 10ml Syr) 0.5 mg IV Q1M PRN PRN Reason: PACU Use-HR<40 &/or Bradycardi Stop: 09/16/21 00:35 Bisacodyl (Bisacodyl 10 Mg Supp) 10 mg NE DAILY PRN PRN Reason: Constipation Stop: 10/15/21 18:05 Clopidogrel Bisulfate (Clopidogrel Bisulfate 75 Mg Tab) 75 mg PO QAM [facility] Stop: 10/12/21 08:59 Last Admin: 09/15/21 09:09 Dose: 75 mg Documented by: Dextrose (Dextrose 50% 50 Ml Syringe) 25 - 50 ml IV UD PRN; Protocol PRN Reason: Hypoglycemia Protocol Stop: 10/11/21 19:43 Docusate Sodium (Docusate Sodium 100 Mg Cap) 100 mg PO BID [facility] Stop: 10/15/21 20:59 Enoxaparin Sodium (Enoxaparin Inj 40 Mg/0.4 Ml Syr) 40 mg SQ Q24H [facility] Stop: 10/11/21 21:59 Last Admin: 09/14/21 20:17 Dose: 40 mg Documented by: Ephedrine Sulfate (Ephedrine Sulfate 50 Mg/Ml Amp) 5 mg IV Q5M PRN PRN Reason: PACU Use Only-SBP<90 mmHg Stop: 09/16/21 00:35 Fentanyl Citrate (Fentanyl Citrate 100 Mcg/2 Ml Vial) 50 mcg IV Q5M PRN PRN Reason: PACU Use Only-Pain Stop: 09/16/21 00:35 Ferrous Sulfate (Ferrous Sulfate 325 Mg Tab) 325 mg PO TIDM [facility] Stop: 10/11/21 20:59 Last Admin: 09/15/21 13:15 Dose: Not Given Documented by: Gabapentin (Gabapentin 100 Mg Cap) 200 mg PO BID REESE Stop: 10/11/21 20:59 Last Admin: 09/15/21 09:08 Dose: 200 mg Documented by: Glucagon (Glucagon For Inj 1 Mg Vial) 1 mg SQ UD PRN; Protocol PRN Reason: Hypoglycemia Protocol Stop: 10/11/21 19:43 Glucose (Glucose 10 Tabs/Tube) 4 - 8 tabs PO UD PRN; Protocol PRN Reason: Hypoglycemia Protocol Stop: 10/11/21 19:43 Glucose (Glucose 40% Gel 15 Gm Tube) 15 - 30 gm PO UD PRN; Protocol PRN Reason: Hypoglycemia Protocol Stop: 10/11/21 19:43 Hydromorphone HCl (Hydromorphone Inj 2 Mg/Ml Syr/Vial) 0.5 mg IV Q5M PRN PRN Reason: PACU Use Only-Pain Stop: 09/16/21 00:36 Hydromorphone HCl (Hydromorphone Inj 0.5 Mg/0.5 Ml Syr) 0.5 mg IV Q4H PRN PRN Reason: Pain or Pre PT Stop: 09/29/21 18:05 Furosemide 40 mg/ Syringe 4 mls @ 4 mls/min IV DAILY REESE Stop: 10/12/21 08:59 Last Admin: 09/15/21 09:07 Dose: 4 mls/min Documented by: Vancomycin HCl 1,000 mg/ (Sodium Chloride) 270 mls @ 200 mls/hr IV Q12H REESE Stop: 09/22/21 01:59 Last Admin: 09/15/21 15:21 Dose: 200 mls/hr Documented by: Insulin Aspart (Insulin Aspart 100 Units/Ml 3 Ml Pen) 0 units SC Q6 REESE Stop: 10/15/21 00:00 Last Admin: 09/15/21 13:14 Dose: Not Given Documented by: Insulin Glargine (Insulin Glargine Solostar 100 Units/Ml 3 Ml Pen) 8 units SC DAILY REESE Stop: 10/14/21 08:59 Last Admin: 09/14/21 08:49 Dose: 8 units Documented by: Lisinopril (Lisinopril 10 Mg Tab) 10 mg PO QAM REESE Stop: 10/13/21 08:59 Last Admin: 09/15/21 09:09 Dose: 10 mg Documented by: Magnesium Hydroxide (Magnesium Hydroxide Susp 30 Ml Udc) 30 ml PO Q12H PRN PRN Reason: Constipation Stop: 10/11/21 19:43 Magnesium Hydroxide (Magnesium Hydroxide Susp 30 Ml Udc) 30 ml PO Q6H PRN PRN Reason: Constipation Stop: 10/15/21 18:05 Magnesium Oxide (Magnesium Oxide 400 Mg Tab) 400 mg PO BID REESE Stop: 10/13/21 12:29 Last Admin: 09/15/21 09:08 Dose: 400 mg Documented by: Metoclopramide HCl (Metoclopramide Hcl Inj 5 Mg/Ml 2 Ml Vial) 10 mg IV Q6H PRN PRN Reason: Nausea And Vomiting Stop: 10/15/21 18:05 Metoprolol Succinate (Metoprolol Succ 50mg Ext Rel Tab) 50 mg PO DAILY [facility] Stop: 10/12/21 08:59 Last Admin: 09/15/21 09:09 Dose: 50 mg Documented by: Miscellaneous (Carbohydrates For Hypoglycemia ) 15 - 30 gm PO UD PRN PRN Reason: Hypoglycemia Protocol Stop: 10/11/21 19:43 Last Admin: 09/13/21 07:10 Dose: 15 gm Documented by: Miscellaneous Information (Vancomycin Consult Active) 1 ea N/A UD PRN PRN Reason: Consult Stop: 10/12/21 12:09 Miscellaneous Information (Pharmacy Glycemic Mgmt Consult) 1 ea N/A UD PRN PRN Reason: Consult Stop: 10/13/21 12:10 Multivitamins (Multivitamin Tab) 1 tab PO QAM [facility] Stop: 10/16/21 08:59 Naloxone HCl (Naloxone Hcl 0.4 Mg/1 Ml Vial/Carp) 0.1 mg IV Q5M PRN PRN Reason: Oversedation/Resp Depression Stop: 10/15/21 18:05 Nitroglycerin (Nitroglycerin Sl 0.4 Mg/Tab Tab) 0.4 mg SL UD PRN PRN Reason: Chest Pain Stop: 10/11/21 19:43 Ondansetron HCl (Ondansetron Inj 2 Mg/Ml 2 Ml Vial) 4 mg IV Q6H PRN PRN Reason: Nausea Stop: 10/11/21 19:43 Ondansetron HCl (Ondansetron Inj 2 Mg/Ml 2 Ml Vial) 4 mg IV ONCE PRN PRN Reason: PACU Use Only-Nausea/Vomiting Stop: 09/16/21 00:36 Ondansetron HCl (Ondansetron Inj 2 Mg/Ml 2 Ml Vial) 4 mg IV Q6H PRN PRN Reason: Nausea And Vomiting Stop: 10/15/21 18:05 Pantoprazole Sodium (Pantoprazole 40 Mg Tab) 40 mg PO DAILY [facility] Stop: 10/12/21 08:59 Last Admin: 09/15/21 09:09 Dose: 40 mg Documented by: Polyethylene Glycol (Polyethylene (Miralax) 17 Gm Pack) 17 gm PO DAILY PRN PRN Reason: Constipation Stop: 10/11/21 19:43 Sennosides (Senna 8.6 Mg Tab) 17.2 mg PO HS REESE Stop: 10/15/21 20:59 Spironolactone (Spironolactone 12.5 Mg Tab) 12.5 mg PO DAILY REESE Stop: 10/14/21 08:59 Last Admin: 09/15/21 09:08 Dose: 12.5 mg Documented by: Tamsulosin HCl (Tamsulosin Hcl 0.4 Mg Cap) 0.4 mg PO HS REESE Stop: 10/11/21 20:59 Last Admin: 09/14/21 20:16 Dose: 0.4 mg Documented by: Tramadol HCl (Tramadol Hcl 50 Mg Tablet) 50 - 100 mg PO Q4H PRN PRN Reason: Pain & Pre PT Stop: 10/15/21 18:05 (1) Carotid stenosis Laterality: right Qualified Code(s): I65.21 - Occlusion and stenosis of right carotid artery (2) Diabetes mellitus Diabetes mellitus complication status: with other specified complication Diabetes mellitus fci insulin use: unspecified fci insulin use status Diabetes mellitus type: other specified (including RODRI) Qualified Code(s): E13.69 - Other specified diabetes mellitus with other specified complication
--- NOTE | 2021-09-15 18:45 | Post Operative Brief Note ---
Immediate Post Op Note v1 Date of Surgery September 15, 2021 Pre & Post Diagnosis Operation Date: 09/15/21 07:00 Pre-Op Diagnosis: Left lower leg delayed healing ulcer distal medial below-knee amputation stump, 5.5 x 2.4 x 0.3 cm, right heel diabetic ulceration. Post-Op Diagnosis: Left lower leg delayed healing ulcer distal medial below-knee amputation stump, 5.5 x 2.4 x 0.3 cm, right heel diabetic ulceration. I identified the patient and participated in the time-out.: Yes Procedure Operation Date: 09/15/21 07:00 Actual Procedures p Irrigation and Debridement Left Below Knee Amputation Wound 5.5cm x 2.4cm x 0.3 cm including skin, subcutaneous tissue and periwound slough, application 5.5 cm x 2.4 cm x 0.3 cm Theraskin Allograft distal medial below-knee amputation stump (Left) - Bright English DO Surgeon Bright English DO Learning And Development Director Stanislaw Paz PA-C Estimated Blood Loss 3 Findings Consistent with Post-Op Diagnosis Specimens Aerobic anaerobic Gram stain ulceration left medial BKA stump Anesthesia Type General Complications none Disposition Accompanied Patient To Recovery: No
--- NOTE | 2021-09-15 18:59 | Anesthesiology Progress Note ---
Date of Service September 15, 2021 Anesthesia Post Procedure Vital Signs Vital Signs: Temp Pulse Pulse Resp BP BP Pulse Ox 09/15/21 18:50 66 16 141/76 H 100 09/15/21 18:40 36.2 C L 69 16 118/69 100 09/15/21 16:17 37 C 76 18 159/91 H 97 09/15/21 11:30 36.8 C 83 18 148/88 H 95 09/15/21 08:12 69 09/15/21 07:40 36.6 C 76 17 144/89 H 92 09/15/21 03:24 36.4 C L 72 20 144/84 H 93 09/15/21 00:02 36.7 C 76 20 146/81 H 95 09/14/21 19:06 36.5 C 71 18 152/98 H 95 Pain Intensity Lower Back: Pain Intensity: 4 Transfer of Care Handoff Completed per policy Notes Mental Status: alert / awake / arousable and participated in evaluation Patient Amnestic to Procedure: Yes Nausea / Vomiting: adequately controlled Pain: adequately controlled Airway Patency, RR, SpO2: stable & adequate BP & HR: stable & adequate Hydration State: stable & adequate Anesthetic Complications: no major complications apparent and Pt Satisfied with anesthetic care
[2021-09-15] MEDS: SENNA 8.6 MG TAB PO SCH (19:53)
[2021-09-15] MEDS: DOCUSATE SODIUM 100 MG CAP PO SCH (19:54)
[2021-09-15] MEDS: ATORVASTATIN 40 MG TAB PO SCH (19:54)
[2021-09-15] MEDS: TAMSULOSIN HCL 0.4 MG CAP PO SCH (19:54)
[2021-09-15] MEDS: ENOXAPARIN INJ 40 MG/0.4 ML SYR SQ SCH (20:38)
--- NOTE | 2021-09-15 23:39 | Vascular Medicine Consultation ---
Date of Consultation September 15, 2021 Assessment & Plan (1) PAD (peripheral artery disease): 2. Large right heel ulceration 3. Prior right perez venous ulcers 4. Post left BKA due to osteo/necrotizing fasciitis 5. Acute on chronic systolic heart failure 6. Complex CADstatus post main LAD stenting post acute NE 7. Type 2 diabetes Patient seen today in the setting of significant, non-healing right heel ulcer. No signs of active infection. Exam and non-invasive vascular testing suggestive of severe arterial insufficiency. Toe pressures reduced and inconsistent with wound healing. Feel limb is at risk and that would benefit from revascularization. Arterial duplex suggestive of severe BRITTANIE and likely TANK HOOP BENDER/peroneal disease. Recommend right lower extremity angiogram with possible endovascular intervention. Patient likely to want to pursue procedure but wanted to think about it further. He stated his desire to leave the hospital soon as possible but if still hospitalized on Saturday could potentially do angiogram at that time. If discharged can arrange as an outpatient. Continue DAPT with aspirin, clopidogrel and current cardiac regimen. Thank you for allowing us to participate in the care of this patient. Please contact with any questions. History of Present Illness Attending Physician: Dorian Jha MD History of Present Illness Mr. Coffman is a 71-year-old man seen today for right lower extremity ulceration in the setting of PAD. Medical issues include: Acute on chronic systolic heart failure CAD post acute NE with unprotected left main/proximal LAD stenting with 3 overlapping HERNANDEZ 01/2021. Previously declined CABG Ischemic cardiomyopathy EF 25 to 30%, apical akinesis, mild to moderate MR Type 2 diabetes on insulin Prior CVA post right carotid artery stent with residual left-sided weakness Prior GI bleed He has a history of bilateral diabetic foot ulcerations with left foot wet gangrene, osteomyelitis, necrotizing fasciitis requiring eventual left [id number] amputation 06/16/2021. Left lower extremity duplex and CTA with runoff suggested TPT occlusion, CTA also suggested high-grade multifocal stenosis BRITTANIE, TANK HOOP BENDER and peroneal arteries. Currently resides at [facility] and was admitted 4 days ago with several days of shortness of breath in the setting of acute heart failure. Has responded well to diuretics -14 L since admission. Seen at the wound clinic initially 08/24/2021 in the setting of diabetic foot ulcer on his heel which he attributed to doing physical therapy using that leg. Was noted also to have over his right third toe and possible venous ulcer over his right perez. Also with nonhealing wound involving his left BKA stump. Has been evaluated by orthopedics with plan for additional debridement today. Right perez wound has healed, minimal residual ulcer over third digit. His right heel has progressed despite standard wound care. Prior surface wound cultures growing staph aureus. On IV vancomycin MRI yesterday negative for evidence of osteomyelitis. Recent vascular testing: Arterial duplex 09/14/2021: Patent INTERVENTIONAL RADIOLOGY RN/SFA/popliteal arteries with triphasic waveforms. Severe BRITTANIE disease (PSV >400) with monophasic blunted waveforms. TANK HOOP BENDER/peroneal poorly visualized distally. TP 37 mmHg, TBI 0.23 Allergies Allergy/AdvReac Type Severity Reaction Status Date / Time No Known Allergies Allergy Verified 09/11/21 11:13 Home Medications Medication Instructions Recorded Confirmed Type aspirin 81 mg tablet,delayed 81 mg PO QAM 06/09/21 09/11/21 History release atorvastatin 80 mg tablet (Lipitor) 80 mg PO HS 06/09/21 09/11/21 History clopidogrel 75 mg tablet (Plavix) 75 mg PO QAM 06/09/21 09/11/21 History folic acid 3 mg-vit B complex with 1 tab PO QAM 06/09/21 09/11/21 History C-selenium 70 mcg-zinc 15 mg tablet gabapentin 100 mg capsule 200 mg PO BID 30 Days #120 cap 06/22/21 09/11/21 Rx lisinopril 5 mg tablet (Zestril) 5 mg PO QAM 30 Days #30 tab 06/22/21 09/11/21 Rx tamsulosin 0.4 mg capsule 0.4 mg PO HS 30 Days #30 cap 06/22/21 09/11/21 Rx metoprolol succinate 50 mg 50 mg PO DAILY tab 08/24/21 09/11/21 History tablet,extended release 24 hr ferrous sulfate 325 mg (65 mg 325 mg PO TID 09/11/21 09/11/21 History iron) tablet metformin 850 mg tablet 850 mg PO BID 09/11/21 09/11/21 History pantoprazole 40 mg tablet,delayed 40 mg PO DAILY 09/11/21 09/11/21 History release Patient History Medical History Anemia CAD (coronary artery disease), [place] coronary artery 02/12/2021: PCI with HERNANDEZ to the distal left main and proximal LAD. Additional distal LAD disease. Large non dominant left circumflex with moderate diffuse disease. Long subtotal occlusion of the distal vessel. Large dominant RCA with focal 70-80% lesion in the mid vessel. Diffuse [id number] distal disease. Diabetes mellitus Elevated troponin I level Family history non-contributory History of CVA with residual deficit History of left below knee amputation Hyperlipidemia LDL goal <70 Ischemic cardiomyopathy LBBB (left bundle branch block) Mitral regurgitation Paroxysmal atrial fibrillation Peripheral vascular disease Symptomatic anemia Surgical History History of coronary artery stent placement History of right common carotid artery stent placement Status post below-knee amputation of left lower extremity Dr English 06/2021 Family History Other Diabetes Social History Smoking Status: Former smoker Hx Alcohol Use: Yes Alcohol type: beer Alcohol Intake Frequency: Monthly or Less Hx Substance Use: No Preferred Language: Croatian Communication Ability: Effective Visual Impairment: Limited Hearing Ability: Normal Electric Motor Repairer Required: No Beliefs That Will Affect Care: None marital status: Single Current Living Situation: Alone and Personal Care Facility Current Living Situation Comment: [facility] current occupational status: retired Feels Safe at Home: Yes Assistive Devices: None Review of Systems Review of Systems: All systems reviewed & are unremarkable except as noted in HPI & below Physical Exam Physical Exam: General: Comfortable, no acute distress Eyes: Sclerae anicteric, extraocular movements intact Lungs: Clear to auscultation bilaterally Cardiac: Regular rate and rhythm, 2 out of 6 holosystolic murmur at the apex Abdomen: Soft, nontender Psych: Alert orient x3, normal affect and mood Extremities/Vascular: -- 2+ radial bilaterally --2+ femoral bilaterally Post left BKA stump dressed --Right nonpalpable DP/PT pulses, sluggish capillary refill --Trace residual edema, healed prior venous ulcers --Mild hyperpigmentation --Large ulcer over the heel with yellow base. No surrounding erythema. No drainage. Small (<.5 cm) shallow ulcer over dorsal aspect of third digit Results & Data ([facility]) Vital Signs (Past 12 Hours) Vital Signs Temp Pulse Pulse Resp BP Pulse Ox 09/15/21 20:36 97.5 F L 70 18 142/89 H 93 09/15/21 19:47 97.5 F L 68 16 154/96 H 91 09/15/21 19:20 97.5 F L 70 18 161/95 H 90 09/15/21 19:00 97.5 F L 67 16 145/84 H 100 09/15/21 18:50 66 16 141/76 H 100 09/15/21 18:40 97.2 F L 69 16 118/69 100 09/15/21 16:17 98.6 F 76 18 159/91 H 97 09/15/21 11:30 98.2 F 83 18 148/88 H 95 PG Care Time/CCT Total # of Minutes Spent Total Time Spent with Patient: Total time spent is greater than 50% in coordination of care (as documented) at patient's floor/unit and/or counseling patient: Coding Level of Care Code 26575 Initial Inpt Care Lvl 3 Diagnoses PAD (peripheral artery disease) I73.9
[2021-09-16] MEDS: VANCOMYCIN HCL 1,000 MG in SODIUM CHLORIDE 0.9% 250 ML IV SCH ×2 (03:11→13:43)
--- NOTE | 2021-09-16 03:38 | Operative Report (OR) ---
DATE OF PROCEDURE: 09/15/2021. PREOPERATIVE DIAGNOSES: 1. Left lower leg delayed healing ulcer, distal medial below-knee amputation stump measuring 5.5 cm x 2.4 cm x 0.3 cm. 2. Right heel diabetic ulcer. POSTOPERATIVE DIAGNOSES: 1. Left lower leg delayed healing ulcer, distal medial below-knee amputation stump measuring 5.5 cm x 2.4 cm x 0.3 cm. 2. Right heel diabetic ulcer. PROCEDURE: 1. Left irrigation and debridement, below-knee amputation, delayed healing ulcer measuring 5.5 x 2.4 x 0.3 cm including skin, subcutaneous tissue and periwound slough. 2. Application of TheraSkin allograft, left distal medial BKA stump measuring 5.5 x 2.4 x 0.3 cm. SURGEON: Bright English DO. SOD STRIPPER: Stanislaw Paz PA-C,who was present for patient positioning, sterile prep and drape, management of retractors and instruments. He was present through the critical portions of the case including wound closure, application of sterile anabel ssing and transport of the patient to recovery. ANESTHESIA: General. SPECIMENS: Aerobic, anaerobic, Gram stain left distal medial BKA stump. DRAINS: None. COMPLICATIONS: None. BLOOD LOSS: 3 mL PERTINENT HISTORY: This is a 71-year-old gentleman with severe diabetes and peripheral artery diseas e and ischemic cardiomyopathy, who had undergone a left below-knee amputation. He had developed jimenez yed healing and ulceration along the distal medial below-knee amputation stump, attempted conservativ e management for several weeks including wound care. A large area of distal medial aspect of the res idual limb left lower extremity would benefit from debridement and skin grafting. Also noted a small ulceration on the right heel, currently under management with wound care, making progress. The breanna ent was scheduled for surgery as indicated. All potential risks, benefits, complications, alternatives, rehab, potential for incomplete relief of symptoms, need for further surgery, DVT, PE, , persistent pain, swelling, scarring, weakness, n eurovascular injury, wound complications were discussed with the patient. The patient decided to pro ceed with the procedure as indicated. DESCRIPTION OF PROCEDURE: The patient was taken to the operative suite and placed supine on the oper ating room table. After review of the consent and identification of proper operative site, the patie nt was anesthetized, LMA was placed. Tourniquet was placed on the left thigh over cast padding. Lef t lower extremity was then sterilely prepped and draped in the usual fashion, elevated and then after surgical timeout was performed, tourniquet was inflated to 300 mmHg. Next, a #15 blade was used to sharply debride the wound and tissue edges including skin and periwound slough and down to the level of the subcutaneous tissue to encourage punctate bleeding. Once this w as completed and the periwound slough was debrided as well as the transudate and exudate, aerobic, an aerobic and Gram stain specimen was harvested from the site and then sent off as specimen. Next, a large curette was then used to gently curettage the entirety of the lesion measuring 5.5 cm x 2.4 cm x 0.3 cm. Once this was completed, pulsatile lavage with 1 gram of Ancef 3 liter bag was the n used as pulsatile lavage to cleanse the distal medial ulceration site until clear. Next, top glove s and top sheet were changed and a sterile application of TheraSkin allograft measuring 5.5 cm x 2.4 cm x 0.3 cm was applied and held in place with multiple skin antoine after the tissue was then trimme d to fit at the site as mentioned above. Next, a sterile compressive dressing was applied consisting of Adaptic, sterile 4 x 4s, ABD pads x2, cast padding, and Gabriel wrap was applied. The tourniquet was released. The right heel was noted to be stable and improving. Therefore, no indication for active debridement today. The patient was then awakened and taken to recovery in stable condition. Job ID: [id number]
[2021-09-16 06:32] LABS: Hematocrit (blood only) 32.2 % (42-52); Hemoglobin 10.5 g/dL (14.0-18.0); Mean Corpuscular Hemoglobin 28.1 pg (25-34); Mean Corpuscular Hgb Conc 32.6 g/dL (32-36); Mean Corpuscular Volume 86.1 fL (80-100); Mean Platelet Volume 9.2 fL (7.4-10.4); Platelet Count 228 K/uL (130-400); RDW Coefficient of Variation 17.3 % (11.5-14.5); RDW Standard Deviation 54.8 fL (36.4-46.3); Red Blood Count 3.74 M/uL (4.7-6.1); White Blood Count 4.15 K/uL (4.8-10.8)
[2021-09-16 07:01] LABS: BUN Creatinine Ratio 21.2 (10-20); Calcium 8.2 mg/dl (8.5-10.1); Creatinine Clr Calc Pharmacy 88.6 ml/min; Est GFR (African American) 96.1 ml/min; Est GFR (Non-African American) 82.9 ml/min; Magnesium 1.8 mg/dl (1.8-2.4)
[2021-09-16 07:02] LABS: Phosphorus 3.7 mg/dl (2.5-4.9)
--- NOTE | 2021-09-16 07:54 | Hospitalist Progress Note ---
Date of Service September 16, 2021 Assessment & Plan (1) Acute on chronic HFrEF (heart failure with reduced ejection fraction): (2) Ischemic cardiomyopathy: (3) CAD (coronary artery disease), [place] coronary artery: (4) Diabetes mellitus: (5) HTN (hypertension): (6) Hypomagnesemia: (7) Surgical wound, non healing: (8) Diabetic ulcer of right heel: (9) Hyperlipidemia LDL goal <70: (10) Carotid stenosis: (11) History of CVA with residual deficit: Plan: Patient is 71 yr male with PMH of CAD with history of HERNANDEZ x3 to distal main and LAD 01/2021, chronic HFrEF EF 30 to 35%, moderate MR, history of right carotid artery stenosis status post stent placement, history of PAD and dry gangrene to left great toe and 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 Acute on chronic HFrEF Ischemic cardiomyopathy CAD S/P HERNANDEZ x3 01/2021, recommendation was CABG and patient declined EF: 20-25% Appreciate Cardiology Input Continue IV diuretics Strict I's and O's, daily weights Continue low-sodium diet, fluid restriction Continue ASA, Plavix, statin, metoprolol and lisinopril Started also on spironolactone Nonhealing wound of left BKA stump Wound/Blood Cx pending H/O MRSA Started on Vancomycin empirically Appreciate Orthopedics Input 09/15 Now s/p Irrigation and Debridement Left Below Knee Amputation Wound 5.5cm x 2.4cm x 0.3 cm including skin, subcutaneous tissue and periwound slough, application 5.5 cm x 2.4 cm x 0.3 cm [place] Allograft distal medial below- knee amputation stump (Left) - Bright English, R heel wound Pt follows with wound care clinic, Maria E PEREZ Discussed with Maria E, who recommends to obtain MRI of heel while in the hospital Orthopedics aware about the plan for MRI R ankle MRI IMPRESSION: 1. Diffuse subcutaneous edema suggestive of cellulitis, lymphedema or venous stasis. Muscle atrophy with extensive intramuscular edema is suggestive of chronic denervation changes. 2. No acute fracture, significant marrow edema or evidence of osteomyelitis. 3. Additional findings as above. 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 English 06/2021 follows w/ wound clinic and Dr. Wilkerson for PAD Plan was to obtain arterial Doppler for right lower extremity, obtained now IMPRESSION: 1. Elevated peak systolic velocities within the anterior tibial artery are compatible with hemodynamically significant stenosis. 2. No arterial occlusion. 3. Normal triphasic waveforms above the level of the knee. 4. Abnormal toe brachial index of 0.23. Dr. Wilkerson aware of pt being in the hospital and study obtained above, likely angio on Saturday Continue home meds DM II HbA1C:6.5 Hold Metformin Lantus/NovoLog per protocol Hypertension On metoprolol and lisinopril Increase lisinopril to 10mg daily Hypomagnesemia Replace as needed Hyperlipidemia Continue statin H/O CVA with residual left-sided weakness Right internal carotid artery stenosis Continue ASA and statin S/P stent to right internal carotid artery DVT px: Lovenox SQ Code Status FULL CODE Admission and Anticipated Discharge Date Admission Date: September 11, 2021 Subjective Patient seen in follow-up of CHF, and left BKA wound, R heel wound Pt is laying in bed, in NAD Denies any chest pain, dyspnea, dizziness, nausea, abdominal pain Currently on room air, speaking in full sentences, still edematous but much improved Discussed with ANA Collins, patient's wound care provider - obtained arterial Dopplers as was previously planned by Dr. Wilkerson. Obtained MRI of his right heel to r/o osteo. Plan for angio w/ Dr. Wilkerson on Saturday. Pt is now status post I&D of left BKA stump with orthopedics. Review of Systems Review of Systems: All systems reviewed & are unremarkable except as noted in Subjective Physical Exam Physical Exam: General Appearance:Moderately built and nourished, no apparent distress Head: normocephalic, Atraumatic Eyes: normal inspection, EOMI Neck: supple, Trachea midline Respiratory/Chest: mild bibasilar crackles, improved breath sounds from previous exam, No accessory muscle use, no wheezing Cardiovascular: S1, S2, No murmur Abdomen/GI: Soft, Non tender, Bowel sounds present Extremities/Musculoskeletal: normal inspection, left below-knee amputation (now in post-surg. dressings), + previously stump wound, + b/l LE edema, +LUE edema (improved), R foot in dressings Neurologic/Psych:AAOX3, speech fluent, no facial asymmetry, moves extremities Skin: normal color, warm Results & Data Results & Data ([facility]) Vital Signs (Past 12 Hours) Vital Signs Temp Pulse Resp BP Pulse Ox 09/16/21 03:10 36.7 C 68 24 135/78 92 09/15/21 23:16 36.5 C 73 20 122/74 91 09/15/21 20:36 36.4 C L 70 18 142/89 H 93 Laboratory Results 09/16/21 09/16/21 09/16/21 Range/Units 07:14 05:56 05:56 WBC 4.15 L (4.8-10.8) K/uL RBC 3.74 L (4.7-6.1) M/uL Hgb 10.5 L (14.0-18.0) g/dL Hct 32.2 L (42-52) % MCV 86.1 (80-100) fL MCH 28.1 (25-34) pg MCHC 32.6 (32-36) g/dL RDW Std Deviation 54.8 H (36.4-46.3) fL RDW Coeff of Vel 17.3 H (11.5-14.5) % Plt Count 228 (130-400) K/uL MPV 9.2 (7.4-10.4) fL Sodium 138 (136-145) mmol/L Potassium 4.0 (3.5-5.1) mmol/L Chloride 103 (98-107) mmol/L Carbon Dioxide 30 (21-32) mmol/L Anion Gap 5.0 (3-11) BUN 20 H (7-18) mg/dl Creatinine 0.93 (0.6-1.4) mg/dl Est Cr Clr Drug Dosing 88.6 ml/min Est GFR ( Amer) 96.1 ml/min Est GFR (Non-Af Amer) 82.9 ml/min BUN/Creatinine Ratio 21.2 H (10-20) Glucose 115 H (70-99) mg/dl POC Glucose 121 H (70-99) mg/dl Calcium 8.2 L (8.5-10.1) mg/dl Phosphorus 3.7 (2.5-4.9) mg/dl Magnesium 1.8 (1.8-2.4) mg/dl 09/15/21 09/15/21 09/15/21 Range/Units 20:26 18:41 13:14 WBC (4.8-10.8) K/uL RBC (4.7-6.1) M/uL Hgb (14.0-18.0) g/dL Hct (42-52) % MCV (80-100) fL MCH (25-34) pg MCHC (32-36) g/dL RDW Std Deviation (36.4-46.3) fL RDW Coeff of Vel (11.5-14.5) % Plt Count (130-400) K/uL MPV (7.4-10.4) fL Sodium (136-145) mmol/L Potassium (3.5-5.1) mmol/L Chloride (98-107) mmol/L Carbon Dioxide (21-32) mmol/L Anion Gap (3-11) BUN (7-18) mg/dl Creatinine (0.6-1.4) mg/dl Est Cr Clr Drug Dosing ml/min Est GFR ( Amer) ml/min Est GFR (Non-Af Amer) ml/min BUN/Creatinine Ratio (10-20) Glucose (70-99) mg/dl POC Glucose 104 H 93 110 H (70-99) mg/dl Calcium (8.5-10.1) mg/dl Phosphorus (2.5-4.9) mg/dl Magnesium (1.8-2.4) mg/dl Medications Administered Current Inpatient Medications Acetaminophen (Acetaminophen 325 Mg Tab) 650 mg PO Q4H PRN PRN Reason: Pain or Fever Stop: 10/11/21 19:43 Last Admin: 09/11/21 20:27 Dose: 650 mg Documented by: Al Hydrox/Mg Hydrox/Simethicone (Aluminum/Magnesium Susp 30 Ml Udc) 15 ml PO Q4H PRN PRN Reason: Dyspepsia Stop: 10/11/21 19:43 Aspirin (Aspirin 81 Mg Ectab) [facility] [place] Stop: 10/12/21 08:59 Last Admin: 09/15/21 09:08 Dose: 81 mg Documented by: Atorvastatin Calcium (Atorvastatin 40 Mg Tab) [address] [facility] Stop: 10/11/21 20:59 Last Admin: 09/15/21 19:54 Dose: 80 mg Documented by: Bisacodyl (Bisacodyl 10 Mg Supp) 10 mg ND DAILY PRN PRN Reason: Constipation Stop: 10/15/21 18:05 Clopidogrel Bisulfate (Clopidogrel Bisulfate 75 Mg Tab) 75 mg PO QAM REESE Stop: 10/12/21 08:59 Last Admin: 09/15/21 09:09 Dose: 75 mg Documented by: Dextrose (Dextrose 50% 50 Ml Syringe) 25 - 50 ml IV UD PRN; Protocol PRN Reason: Hypoglycemia Protocol Stop: 10/11/21 19:43 Docusate Sodium (Docusate Sodium 100 Mg Cap) 100 mg PO BID REESE Stop: 10/15/21 20:59 Last Admin: 09/15/21 19:54 Dose: 100 mg Documented by: Enoxaparin Sodium (Enoxaparin Inj 40 Mg/0.4 Ml Syr) 40 mg SQ Q24H REESE Stop: 10/11/21 21:59 Last Admin: 09/15/21 20:38 Dose: 40 mg Documented by: Ferrous Sulfate (Ferrous Sulfate 325 Mg Tab) 325 mg PO TIDM REESE Stop: 10/11/21 20:59 Last Admin: 09/15/21 19:06 Dose: Not Given Documented by: Gabapentin (Gabapentin 100 Mg Cap) 200 mg PO BID REESE Stop: 10/11/21 20:59 Last Admin: 09/15/21 19:54 Dose: 200 mg Documented by: Glucagon (Glucagon For Inj 1 Mg Vial) 1 mg SQ UD PRN; Protocol PRN Reason: Hypoglycemia Protocol Stop: 10/11/21 19:43 Glucose (Glucose 10 Tabs/Tube) 4 - 8 tabs PO UD PRN; Protocol PRN Reason: Hypoglycemia Protocol Stop: 10/11/21 19:43 Glucose (Glucose 40% Gel 15 Gm Tube) 15 - 30 gm PO UD PRN; Protocol PRN Reason: Hypoglycemia Protocol Stop: 10/11/21 19:43 Hydromorphone HCl (Hydromorphone Inj 0.5 Mg/0.5 Ml Syr) 0.5 mg IV Q4H PRN PRN Reason: Pain or Pre PT Stop: 09/29/21 18:05 Furosemide 40 mg/ Syringe 4 mls @ 4 mls/min IV DAILY REESE Stop: 10/12/21 08:59 Last Admin: 09/15/21 09:07 Dose: 4 mls/min Documented by: Vancomycin HCl 1,000 mg/ (Sodium Chloride) 270 mls @ 200 mls/hr IV Q12H REESE Stop: 09/22/21 01:59 Last Infusion: 09/16/21 04:33 Dose: Infused Documented by: Insulin Aspart (Insulin Aspart 100 Units/Ml 3 Ml Pen) 0 units SC ACHS REESE Stop: 10/15/21 00:00 Last Admin: 09/15/21 20:37 Dose: Not Given Documented by: Lisinopril (Lisinopril 10 Mg Tab) 10 mg PO QAM REESE Stop: 10/13/21 08:59 Last Admin: 09/15/21 09:09 Dose: 10 mg Documented by: Magnesium Hydroxide (Magnesium Hydroxide Susp 30 Ml Udc) 30 ml PO Q12H PRN PRN Reason: Constipation Stop: 10/11/21 19:43 Magnesium Hydroxide (Magnesium Hydroxide Susp 30 Ml Udc) 30 ml PO Q6H PRN PRN Reason: Constipation Stop: 10/15/21 18:05 Magnesium Oxide (Magnesium Oxide 400 Mg Tab) [address] [facility] Stop: 10/13/21 12:29 Last Admin: 09/15/21 19:54 Dose: 400 mg Documented by: Metoclopramide HCl (Metoclopramide Hcl Inj 5 Mg/Ml 2 Ml Vial) 10 mg IV Q6H PRN PRN Reason: Nausea And Vomiting Stop: 10/15/21 18:05 Metoprolol Succinate (Metoprolol Succ 50mg Ext Rel Tab) [address] [facility] Stop: 10/12/21 08:59 Last Admin: 09/15/21 09:09 Dose: 50 mg Documented by: Miscellaneous (Carbohydrates For Hypoglycemia ) 15 - 30 gm PO UD PRN PRN Reason: Hypoglycemia Protocol Stop: 10/11/21 19:43 Last Admin: 09/13/21 07:10 Dose: 15 gm Documented by: Miscellaneous Information (Vancomycin Consult Active) 1 ea N/A UD PRN PRN Reason: Consult Stop: 10/12/21 12:09 Miscellaneous Information (Pharmacy Glycemic Mgmt Consult) 1 ea N/A UD PRN PRN Reason: Consult Stop: 10/13/21 12:10 Multivitamins (Multivitamin Tab) [address] [facility] Stop: 10/16/21 08:59 Naloxone HCl (Naloxone Hcl 0.4 Mg/1 Ml Vial/Carp) 0.1 mg IV Q5M PRN PRN Reason: Oversedation/Resp Depression Stop: 10/15/21 18:05 Nitroglycerin (Nitroglycerin Sl 0.4 Mg/Tab Tab) 0.4 mg SL UD PRN PRN Reason: Chest Pain Stop: 10/11/21 19:43 Ondansetron HCl (Ondansetron Inj 2 Mg/Ml 2 Ml Vial) 4 mg IV Q6H PRN PRN Reason: Nausea Stop: 10/11/21 19:43 Ondansetron HCl (Ondansetron Inj 2 Mg/Ml 2 Ml Vial) 4 mg IV Q6H PRN PRN Reason: Nausea And Vomiting Stop: 10/15/21 18:05 Pantoprazole Sodium (Pantoprazole 40 Mg Tab) 40 mg PO DAILY [facility] Stop: 10/12/21 08:59 Last Admin: 09/15/21 09:09 Dose: 40 mg Documented by: Polyethylene Glycol (Polyethylene (Miralax) 17 Gm Pack) 17 gm PO DAILY PRN PRN Reason: Constipation Stop: 10/11/21 19:43 Sennosides (Senna 8.6 Mg Tab) 17.[address] [facility] Stop: 10/15/21 20:59 Last Admin: 09/15/21 19:53 Dose: 17.2 mg Documented by: Spironolactone (Spironolactone 12.5 Mg Tab) 12.5 mg PO DAILY RE[facility] Stop: 10/14/21 08:59 Last Admin: 09/15/21 09:08 Dose: 12.5 mg Documented by: Tamsulosin HCl (Tamsulosin Hcl 0.4 Mg Cap) 0.4 mg PO HS [facility] Stop: 10/11/21 20:59 Last Admin: 09/15/21 19:54 Dose: 0.4 mg Documented by: Tramadol HCl (Tramadol Hcl 50 Mg Tablet) 50 - 100 mg PO Q4H PRN PRN Reason: Pain & Pre PT Stop: 10/15/21 18:05 (1) Carotid stenosis Laterality: right Qualified Code(s): I65.21 - Occlusion and stenosis of right carotid artery (2) Diabetes mellitus Diabetes mellitus complication status: with other specified complication Diabetes mellitus intermediate designer insulin use: unspecified intermediate designer insulin use status Diabetes mellitus type: other specified (including RODRI) Qualified Code(s): E13.69 - Other specified diabetes mellitus with other specified complication
--- NOTE | 2021-09-16 08:00 | Orthopedic Progress Note ---
Date of Service September 16, 2021 Assessment & Plan (1) Surgical wound, non healing: Plan: Postop day #1 left BKA wound I&D, application of TheraSkin graft. Patient is doing well this morning. No current complaints. Current DVT prophylaxis is Lovenox. Due to TheraSkin dressing should remain in place for 10 days. Continue IV antibiotics per medicine. We will continue to follow. (2) Diabetic ulcer of toe of right foot associated with diabetes mellitus due to underlying condition, limited to breakdown of skin: Plan: Right heel ulcer. Continue dressing changes and management per wound care. Admission and Anticipated Discharge Date Admission Date: September 11, 2021 Subjective Patient is postop day 1 from left BKA wound I&D and application of TheraSkin.He is doing well this morning. Some discomfort at surgical site however pain is well controlled. No other complaints at this time. Denies any fever/chills, shortness of breath, chest pain, headaches, nausea/vomiting/diarrhea. Review of Systems Review of Systems: All systems reviewed & are unremarkable except as noted in Subjective Physical Exam Physical Exam: Dressing to left BKA site is clean and dry and intact.No calf tenderness. Sensation intact. Right foot dressings are clean, dry, and intact. Distally sensation intact. Toes toes are mobile. Constitutional: well developed and well nourished; no acute distress Results & Data ([facility]) Vital Signs (Past 12 Hours) Vital Signs Temp Pulse Resp BP Pulse Ox 09/16/21 03:10 36.7 C 68 24 135/78 92 09/15/21 23:16 36.5 C 73 20 122/74 91 09/15/21 20:36 36.4 C L 70 18 142/89 H 93
[2021-09-16] MEDS: PANTOprazole 40 MG TAB PO SCH (08:15)
[2021-09-16] MEDS: MULTIVITAMIN TAB PO SCH (08:15)
[2021-09-16] MEDS: FUROSEMIDE 40 MG in SYRINGE 0 ML IV SCH (08:15)
[2021-09-16] MEDS: DOCUSATE SODIUM 100 MG CAP PO SCH ×2 (08:15→19:59)
[2021-09-16] MEDS: METOPROLOL SUCC 50MG EXT REL TAB PO SCH (08:15)
[2021-09-16] MEDS: GABAPENTIN 100 MG CAP PO SCH ×2 (08:15→19:58)
[2021-09-16] MEDS: MAGNESIUM OXIDE 400 MG TAB PO SCH ×2 (08:15→19:58)
[2021-09-16] MEDS: FERROUS SULFATE 325 MG TAB PO SCH ×3 (08:16→17:37)
[2021-09-16] MEDS: SPIRONOLACTONE 12.5 MG TAB PO SCH (08:16)
[2021-09-16] MEDS: ASPIRIN 81 MG ECTAB PO SCH (08:16)
[2021-09-16] MEDS: CLOPIDOGREL BISULFATE 75 MG TAB PO SCH (08:16)
[2021-09-16] MEDS: lisinopril 10 MG TAB PO SCH (08:16)
[2021-09-16] MEDS: INSULIN ASPART 100 UNITS/ML 3 ML PEN SC SCH ×4 (08:16→21:13)
--- NOTE | 2021-09-16 08:55 | Pharmacy Report ---
Pharmacy Glycemic Short Note 2 - Date of Service September 16, 2021 - Glycemic Short BSG Results (Last 24 hours): 09/15/21 09/15/21 09/15/21 13:14 18:41 20:26 Glucose POC Glucose 110 H 93 104 H 09/16/21 09/16/21 05:56 07:14 Glucose 115 H POC Glucose 121 H OUTPATIENT ANTIDIABETIC REGIMEN: * metformin 850 mg BID ASSESSMENT: 09/16/21 * Patient's BSGs yesterday were [phone]. Patient received 0 units of insulin. * Patient has diet ordered today but since fasting is stable will continue to hold basal. * Continue Novolog. 09/15/21 * Patient's BSGs yesterday were [phone]. Patient received 10 units of insulin (8 units of basal and 2 units of correctional). * Patient is NPO today. Hold basal insulin for now. * Continue Novolog. Background * Mr Coffman is a 71 y/o M with a PMH of T2DM on metformin who presents with an infection. * Patient's BSGs yesterday were [phone] and patient received 33 units of insulin (15 units of basal and 18 units of bolus). * Patient's fasting today was 56 and lunch was 85 mg/dL. * Per previous visit, Lantus 8 units daily produced excellent fastings. * Will plan for Lantus 8 units starting on 09/14 to allow for patient's BSGs to recover. Overnight checks to ensure patient does not suffer rebound hyperglycemia. * Novolog weight-based stress of 2. PLAN FOR INPATIENT GLYCEMIC CONTROL: * Hold outpatient oral diabetes medications * Basal insulin * hold * Bolus insulin * NovoLog per scale ACHS or Q6hrs while NPO * Goal Range: Low 120 mg/dL - High 160 mg/dL * Correction Factor: 25 mg/dL/unit * Nutritional / Prandial insulin per carb ratio of 1 unit per 8 grams CHO consumed PLAN FOR DISCHARGE: * Patient's HbA1C is well controlled and at goal. Can continue current regimen.
[2021-09-16] MEDS ORDERED: INSULIN GLARGINE SOLOSTAR 100 UNITS/ML 3 ML PEN SC SCH (13:00)
--- NOTE | 2021-09-16 16:21 | Pharmacy Report ---
Pharmacy Abx Dose Short Note - Date of Service September 16, 2021 - Assessment & Plan Assessment 71 year old M receiving Vancomycin for treatment of cellulitis Day # 5 of antimicrobial therapy. Plan Vancomycin * Trough level of 19.2 mcg/mL - Level is higher than last lab draw prior to a dosage decrease. Concern for accumulation. * Change to 750 mg IV every 12 hours * Goal trough level ~ 15 * Trough or random level ordered for: 09/18/21 @ 0390 Pharmacy will continue to follow and will adjust dose/frequency as necessary. Thank you.
--- NOTE | 2021-09-16 18:11 | Wound Consultation ---
Date of Consultation September 16, 2021 Assessment & Plan (1) Diabetic ulcer of toe of right foot associated with diabetes mellitus due to underlying condition, limited to breakdown of skin: The wound appears stable since last viewed as an outpatient. Continue dressing with Aquacel AG. (2) Surgical wound, non healing: Wound not addressed today. Defer management to Dr. English. (3) Venous stasis ulcer of right lower extremity: Wound appears stable. Continue to dress with Aquacel AG. Will avoid compression in the setting of PAD. Consider outpatient venous reflux studies at Dr. Wilkerson's office. (4) Diabetic ulcer of right heel: The wound is stable. No debridement performed in the setting of significant PAD. Recommend dressing with Aquacel AG and an Optifoam daily. Waffle boot for offloading. (5) PAD (peripheral artery disease): I had a discussion with the patient today regarding his PAD. Wounds are unlikely to heel without adequate flow. His stay has been mentally taxing for him, but leaving the hospital at this time without intervention may delay treatment and wound healing. He would likely need to schedule as an outpatient with repeat COVID testing prior to procedure. We did discuss that the longer the wounds remain open, the higher the risk of developing significant infection and osteomyelitis. Patient verbalized understanding, and states he will remain inpatient with the hope of angiogram on Saturday. Thank you for the consult. Will plan to f/u with Mr. Coffman as an outpatient. History of Present Illness Reason for Consultation: wounds of RLE Requesting Physician: Dr. Jha Attending Physician: Dorian Jha MD History of Present Illness 71 year old male admitted with heart failure. I have been asked to see the patient regarding his RLE wounds. He is known to myself at the [facility] for which I have been following him for a nonhealing surgical wound to the left BKA stump, diabetic ulcer to the right heel, venous ulcer to the right lower leg, and a diabetic ulcer to the right third toe. Patient has undergone surgical debridement and Theraskin grafting of the surgical wound of his left BKA stump by Dr. English yesterday. MRI of the right ankle was performed while inpatient. This was suggestive of cellulitis, but negative for osteomyelitis. He is currently on IV Vancomycin. The patient has known PAD. Arterial studies of the RLE were repeated while inpatient. These are suggestive of severe arterial insufficiency. Toe pressures reduced, and inconsistent with wound healing as well. The patient has been seen by Dr. Wilkerson who recommends an angiogram which could potentially be done as soon as Saturday. The patient is hesitant to remain in the hospital as his stay has been mentally taxing for him. PMH includes a hx of type II diabetes. Hgb A1C noted to be 6.5% on 09/12/21. Other PMH includes a hx of acute on chronic heart failure, CAD, HTN, carotid stenosis, hyperlipidemia, and CVA. Allergies Allergy/AdvReac Type Severity Reaction Status Date / Time No Known Allergies Allergy Verified 09/11/21 11:13 Home Medications Medication Instructions Recorded Confirmed Type aspirin 81 mg tablet,delayed 81 mg PO QAM 06/09/21 09/11/21 History release atorvastatin 80 mg tablet (Lipitor) 80 mg PO HS 06/09/21 09/11/21 History clopidogrel 75 mg tablet (Plavix) 75 mg PO QAM 06/09/21 09/11/21 History folic acid 3 mg-vit B complex with 1 tab PO QAM 06/09/21 09/11/21 History C-selenium 70 mcg-zinc 15 mg tablet gabapentin 100 mg capsule 200 mg PO BID 30 Days #120 cap 06/22/21 09/11/21 Rx lisinopril 5 mg tablet (Zestril) 5 mg PO QAM 30 Days #30 tab 06/22/21 09/11/21 Rx tamsulosin 0.4 mg capsule 0.4 mg PO HS 30 Days #30 cap 06/22/21 09/11/21 Rx metoprolol succinate 50 mg 50 mg PO DAILY tab 08/24/21 09/11/21 History tablet,extended release 24 hr ferrous sulfate 325 mg (65 mg 325 mg PO TID 09/11/21 09/11/21 History iron) tablet metformin 850 mg tablet 850 mg PO BID 09/11/21 09/11/21 History pantoprazole 40 mg tablet,delayed 40 mg PO DAILY 09/11/21 09/11/21 History release Patient History Medical History Anemia CAD (coronary artery disease), [place] coronary artery 02/12/2021: PCI with HERNANDEZ to the distal left main and proximal LAD. Additional distal LAD disease. Large non dominant left circumflex with moderate diffuse disease. Long subtotal occlusion of the distal vessel. Large dominant RCA with focal 70-80% lesion in the mid vessel. Diffuse [id number] distal disease. Diabetes mellitus Elevated troponin I level Family history non-contributory History of CVA with residual deficit History of left below knee amputation Hyperlipidemia LDL goal <70 Ischemic cardiomyopathy LBBB (left bundle branch block) Mitral regurgitation Paroxysmal atrial fibrillation Peripheral vascular disease Symptomatic anemia Surgical History History of coronary artery stent placement History of right common carotid artery stent placement Status post below-knee amputation of left lower extremity Dr English 06/2021 Family History Other Diabetes Social History Smoking Status: Former smoker Hx Alcohol Use: Yes Alcohol type: beer Alcohol Intake Frequency: Monthly or Less Hx Substance Use: No Preferred Language: Ukrainian Communication Ability: Effective Visual Impairment: Limited Hearing Ability: Normal [place] Required: No Beliefs That Will Affect Care: None marital status: Single Current Living Situation: Alone and Personal Care Facility Current Living Situation Comment: [facility] current occupational status: retired Feels Safe at Home: Yes Assistive Devices: None Review of Systems Review of Systems: All systems reviewed & are unremarkable except as noted in HPI & below Physical Exam Physical Exam: Temp Pulse Resp BP Pulse Ox 37.0 C 74 18 132/64 99 09/16/21 14:00 09/16/21 14:00 09/16/21 14:00 09/16/21 14:00 09/16/21 14:00 Patient is afebrile. Vital signs stable. I did not examine the patient's surgical wound today, and this will be deferred to ortho. Wounds of the RLE reviewed. No photos or measurements were taken at this time. Venous stasis ulcer of the right anterior perez was small. Wound base yellow with a scant amount of serous drainage noted. No odor present. Periwound intact. Wound of the right heel was covered in slough and eschar. Scant amount of serosanguineous drainage noted. No odor present. Periwound intact. Wound of the right 3rd toe was covered in eschar. No odor present. Scant serosanguineous drainage noted. Periwound intact. Constitutional: average body habitus; no acute distress Eyes: + anicteric sclerae ENMT: Ears: no hearing impairment Neck: normal visual inspection Respiratory: normal respiratory effort Cardiovascular: Extremities: + edema Psychiatric: A+Ox3, euthymic affect Results & Data ([facility]) Vital Signs (Past 12 Hours) Vital Signs Temp Pulse Pulse Resp BP Pulse Ox 09/16/21 14:00 37.0 C 74 18 132/64 99 09/16/21 11:43 36.8 C 81 16 127/69 96 09/16/21 08:05 66 09/16/21 08:00 36.8 C 79 18 109/64 95 PG Care Time/CCT Total # of Minutes Spent Total Time Spent with Patient: Total time spent is greater than 50% in coordin ation of care (as documented) at patient's floor/unit and/or counseling patient: Coding Level of Care Code 46190 Initial Inpt Care Lvl 1 History Detailed Exam Detailed Medical Decision Making Moderate Complexity Diagnoses Diabetic ulcer of toe of right foot associated with diabetes mellitus due to underlying condition, limited to breakdown of skin E08.621; L97.511 Surgical wound, non healing T81.89XA Venous stasis ulcer of right lower extremity I83.019; L97.919 Diabetic ulcer of right heel E11.621; L97.419 PAD (peripheral artery disease) I73.9
[2021-09-16] MEDS: TAMSULOSIN HCL 0.4 MG CAP PO SCH (19:58)
[2021-09-16] MEDS: SENNA 8.6 MG TAB PO SCH (19:59)
[2021-09-16] MEDS: ENOXAPARIN INJ 40 MG/0.4 ML SYR SQ SCH (19:59)
[2021-09-16] MEDS: ATORVASTATIN 40 MG TAB PO SCH (19:59)
[2021-09-17] MEDS: VANCOMYCIN HCL 750 MG in SODIUM CHLORIDE 0.9% 250 ML IV SCH ×2 (02:55→15:16)
--- NOTE | 2021-09-17 07:52 | Orthopedic Progress Note ---
Date of Service September 17, 2021 Assessment & Plan (1) Surgical wound, non healing: Plan: Postop day #1 left BKA wound I&D, application of TheraSkin graft. Patient is doing well this morning. No current complaints. Current DVT prophylaxis is Lovenox. Due to TheraSkin dressing should remain in place for 10 days. Continue IV antibiotics per medicine. We will continue to follow. (2) Diabetic ulcer of toe of right foot associated with diabetes mellitus due to underlying condition, limited to breakdown of skin: Plan: Right heel ulcer. Continue dressing changes and management per wound care. P ossibly for angiogram Saturday for intervention with Dr. Wilkerson. Admission and Anticipated Discharge Date Admission Date: September 11, 2021 Subjective Patient is postop day 2 left BKA wound debridement and application of TheraSkin allograft. Patient is resting in bed comfortably. He has no complaints of pain currently. Denies any chest pain, shortness of breath, fever/chills, nausea/vomiting/diarrhea. Review of Systems Review of Systems: All systems reviewed & are unremarkable except as noted in Subjective Physical Exam Physical Exam: Dressing to left BKA site is clean and dry and intact.No calf tenderness. Sensation intact. Right foot dressings are clean, dry, and intact. Distally sensation intact. Toes toes are mobile. Constitutional: well developed and well nourished; no acute distress Results & Data ([facility]) Vital Signs (Past 12 Hours) Vital Signs Temp Pulse Resp BP Pulse Ox 09/17/21 03:14 36.5 C 64 16 121/76 95 09/16/21 22:58 37.2 C 69 20 118/71 95
[2021-09-17] MEDS: INSULIN ASPART 100 UNITS/ML 3 ML PEN SC SCH ×4 (08:00→21:45)
[2021-09-17 08:14] LABS: Hematocrit (blood only) 34.4 % (42-52); Hemoglobin 11.1 g/dL (14.0-18.0); Mean Corpuscular Hemoglobin 28.1 pg (25-34); Mean Corpuscular Hgb Conc 32.3 g/dL (32-36); Mean Corpuscular Volume 87.1 fL (80-100); Mean Platelet Volume 9.1 fL (7.4-10.4); Platelet Count 224 K/uL (130-400); RDW Coefficient of Variation 17.2 % (11.5-14.5); RDW Standard Deviation 55.3 fL (36.4-46.3); Red Blood Count 3.95 M/uL (4.7-6.1); White Blood Count 5.11 K/uL (4.8-10.8)
[2021-09-17] MEDS: GABAPENTIN 100 MG CAP PO SCH ×2 (08:24→19:49)
[2021-09-17] MEDS: FUROSEMIDE 40 MG in SYRINGE 0 ML IV SCH (08:24)
[2021-09-17] MEDS: MAGNESIUM OXIDE 400 MG TAB PO SCH ×2 (08:24→19:49)
[2021-09-17] MEDS: DOCUSATE SODIUM 100 MG CAP PO SCH ×2 (08:24→19:49)
[2021-09-17] MEDS: ASPIRIN 81 MG ECTAB PO SCH (08:25)
[2021-09-17] MEDS: PANTOprazole 40 MG TAB PO SCH (08:25)
[2021-09-17] MEDS: METOPROLOL SUCC 50MG EXT REL TAB PO SCH (08:25)
[2021-09-17] MEDS: SPIRONOLACTONE 12.5 MG TAB PO SCH (08:25)
[2021-09-17] MEDS: FERROUS SULFATE 325 MG TAB PO SCH ×3 (08:25→16:39)
[2021-09-17] MEDS: lisinopril 10 MG TAB PO SCH (08:25)
[2021-09-17] MEDS: CLOPIDOGREL BISULFATE 75 MG TAB PO SCH (08:25)
[2021-09-17] MEDS: MULTIVITAMIN TAB PO SCH (08:25)
[2021-09-17 08:31] LABS: BUN Creatinine Ratio 24.7 (10-20); Calcium 8.4 mg/dl (8.5-10.1); Est GFR (African American) 90.2 ml/min; Est GFR (Non-African American) 77.8 ml/min; Magnesium 1.9 mg/dl (1.8-2.4); Phosphorus 3.8 mg/dl (2.5-4.9)
[2021-09-17] MEDS ORDERED: INSULIN GLARGINE SOLOSTAR 100 UNITS/ML 3 ML PEN SC SCH (09:00)
--- NOTE | 2021-09-17 09:18 | Hospitalist Progress Note ---
Date of Service September 17, 2021 Assessment & Plan (1) Acute on chronic HFrEF (heart failure with reduced ejection fraction): (2) Ischemic cardiomyopathy: (3) CAD (coronary artery disease), [place] coronary artery: (4) Diabetes mellitus: (5) HTN (hypertension): (6) Hypomagnesemia: (7) Surgical wound, non healing: (8) Diabetic ulcer of right heel: (9) Hyperlipidemia LDL goal <70: (10) Carotid stenosis: (11) History of CVA with residual deficit: Plan: Patient is a 71 yo M w/CAD HERNANDEZ x3 to distal main and LAD 01/2021, chronic HFrEF (EF 30 to 35%), moderate MR, hx of R carotid artery stenosis s/p stent placement, history of PAD and dry gangrene to left great toe and 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 Acute on chronic HFrEF Ischemic cardiomyopathy CAD S/P HERNANDEZ x3 01/2021, recommendation was CABG and patient declined EF: 20-25% Appreciate Cardiology Input Continue IV diuretics Strict I's and O's, daily weights Continue low-sodium diet, fluid restriction Continue ASA, Plavix, statin, metoprolol and lisinopril Started also on spironolactone Nonhealing wound of left BKA stump Wound/Blood Cx pending H/O MRSA Started on Vancomycin empirically Appreciate Orthopedics Input 09/15 Now s/p Irrigation and Debridement Left Below Knee Amputation Wound 5.5cm x 2.4cm x 0.3 cm including skin, subcutaneous tissue and periwound slough, application 5.5 cm x 2.4 cm x 0.3 cm Theraskin Allograft distal medial below- knee amputation stump (Left) - Bright English DO R heel wound Pt follows with wound care clinic, Maria E PEREZ Discussed with Maria E, who recommends to obtain MRI of heel (MRI shows edema, cellulitis, but no evidence of osteomyelitis) R ankle MRI IMPRESSION: 1. Diffuse subcutaneous edema suggestive of cellulitis, lymphedema or venous stasis. Muscle atrophy with extensive intramuscular edema is suggestive of chronic denervation changes. 2. No acute fracture, significant marrow edema or evidence of osteomyelitis. 3. Additional findings as above. 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 English 06/2021 follows w/ wound clinic and Dr. Wilkerson for PAD Plan was to obtain arterial Doppler for right lower extremity, obtained now IMPRESSION: 1. Elevated peak systolic velocities within the anterior tibial artery are compatible with hemodynamically significant stenosis. 2. No arterial occlusion. 3. Normal triphasic waveforms above the level of the knee. 4. Abnormal toe brachial index of 0.23. Dr. Wilkerson aware of pt being in the hospital and study obtained above, likely angiogram with possible endovascular intervention on Saturday (09/18) Continue home meds DM II HbA1C:6.5 Hold Metformin Lantus/NovoLog per protocol Hypertension On metoprolol and lisinopril Increased lisinopril to 10mg daily Hypomagnesemia Replace as needed Hyperlipidemia Continue statin H/O CVA with residual left-sided weakness Right internal carotid artery stenosis Continue ASA and statin S/P stent to right internal carotid artery DVT px: Lovenox SQ Code Status FULL CODE Admission and Anticipated Discharge Date Admission Date: September 11, 2021 Subjective Patient seen in follow-up of CHF, and left BKA wound, R heel wound Pt is laying in bed, in NAD Denies any chest pain, dyspnea, dizziness, nausea, abdominal pain Currently on room air, speaking in full sentences, still edematous but much improved Discussed with ANA Collins, patient's wound care provider - obtained arterial Dopplers as was previously planned by Dr. Wilkerson. Obtained MRI of his right heel to r/o osteo. Plan for possible angio w/ Dr. Wilkerson on Saturday. Pt is now status post I&D of left BKA stump with orthopedics. Review of Systems Review of Systems: All systems reviewed & are unremarkable except as noted in Subjective Physical Exam Physical Exam: General Appearance:Moderately built and nourished, no apparent distress Head: normocephalic, Atraumatic Eyes: normal inspection, EOMI Neck: supple, Trachea midline Respiratory/Chest: mild bibasilar crackles, improved breath sounds from previous exam, No accessory muscle use, no wheezing Cardiovascular: S1, S2, No murmur Abdomen/GI: Soft, Non tender, Bowel sounds present Extremities/Musculoskeletal: normal inspection, L below-knee amputation (now in post-surg. dressings), (+ previously stump wound), + b/l LE edema, +LUE edema (much improved), R foot in dressings Neurologic/Psych:AAOX3, speech fluent, no facial asymmetry, moves extremities Skin: normal color, warm Results & Data Results & Data ([facility]) Vital Signs (Past 12 Hours) Vital Signs Temp Pulse Resp BP Pulse Ox 09/17/21 08:02 36.3 C L 78 20 130/76 93 09/17/21 03:14 36.5 C 64 16 121/76 95 09/16/21 22:58 37.2 C 69 20 118/71 95 Laboratory Results 09/17/21 09/17/21 09/17/21 Range/Units 08:10 07:50 07:50 WBC 5.11 (4.8-10.8) K/uL RBC 3.95 L (4.7-6.1) M/uL Hgb 11.1 L (14.0-18.0) g/dL Hct 34.4 L (42-52) % MCV 87.1 (80-100) fL MCH 28.1 (25-34) pg MCHC 32.3 (32-36) g/dL RDW Std Deviation 55.3 H (36.4-46.3) fL RDW Coeff of Vel 17.2 H (11.5-14.5) % Plt Count 224 (130-400) K/uL MPV 9.1 (7.4-10.4) fL Sodium 138 (136-145) mmol/L Potassium 4.0 (3.5-5.1) mmol/L Chloride 104 (98-107) mmol/L Carbon Dioxide 29 (21-32) mmol/L Anion Gap 5.0 (3-11) BUN 24 H (7-18) mg/dl Creatinine 0.98 (0.6-1.4) mg/dl Est Cr Clr Drug Dosing 83.0 ml/min Est GFR ( Amer) 90.2 ml/min Est GFR (Non-Af Amer) 77.8 ml/min BUN/Creatinine Ratio 24.7 H (10-20) Glucose 60 L (70-99) mg/dl POC Glucose 96 (70-99) mg/dl Calcium 8.4 L (8.5-10.1) mg/dl Phosphorus 3.8 (2.5-4.9) mg/dl Magnesium 1.9 (1.8-2.4) mg/dl Vancomycin Trough (See Comment) mcg/ml 09/17/21 09/17/21 09/16/21 Range/Units 07:45 07:44 20:13 WBC (4.8-10.8) K/uL RBC (4.7-6.1) M/uL Hgb (14.0-18.0) g/dL Hct (42-52) % MCV (80-100) fL MCH (25-34) pg MCHC (32-36) g/dL RDW Std Deviation (36.4-46.3) fL RDW Coeff of Vel (11.5-14.5) % Plt Count (130-400) K/uL MPV (7.4-10.4) fL Sodium (136-145) mmol/L Potassium (3.5-5.1) mmol/L Chloride (98-107) mmol/L Carbon Dioxide (21-32) mmol/L Anion Gap (3-11) BUN (7-18) mg/dl Creatinine (0.6-1.4) mg/dl Est Cr Clr Drug Dosing ml/min Est GFR ( Amer) ml/min Est GFR (Non-Af Amer) ml/min BUN/Creatinine Ratio (10-20) Glucose (70-99) mg/dl POC Glucose 64 L* 56 L* 74 (70-99) mg/dl Calcium (8.5-10.1) mg/dl Phosphorus (2.5-4.9) mg/dl Magnesium (1.8-2.4) mg/dl Vancomycin Trough (See Comment) mcg/ml 09/16/21 09/16/21 09/16/21 Range/Units 16:09 13:20 11:17 WBC (4.8-10.8) K/uL RBC (4.7-6.1) M/uL Hgb (14.0-18.0) g/dL Hct (42-52) % MCV (80-100) fL MCH (25-34) pg MCHC (32-36) g/dL RDW Std Deviation (36.4-46.3) fL RDW Coeff of Vel (11.5-14.5) % Plt Count (130-400) K/uL MPV (7.4-10.4) fL Sodium (136-145) mmol/L Potassium (3.5-5.1) mmol/L Chloride (98-107) mmol/L Carbon Dioxide (21-32) mmol/L Anion Gap (3-11) BUN (7-18) mg/dl Creatinine (0.6-1.4) mg/dl Est Cr Clr Drug Dosing ml/min Est GFR ( Amer) ml/min Est GFR (Non-Af Amer) ml/min BUN/Creatinine Ratio (10-20) Glucose (70-99) mg/dl POC Glucose 128 H 230 H (70-99) mg/dl Calcium (8.5-10.1) mg/dl Phosphorus (2.5-4.9) mg/dl Magnesium (1.8-2.4) mg/dl Vancomycin Trough 19.2 (See Comment) mcg/ml Medications Administered Current Inpatient Medications Acetaminophen (Acetaminophen 325 Mg Tab) 650 mg PO Q4H PRN PRN Reason: Pain or Fever Stop: 10/11/21 19:43 Last Admin: 09/11/21 20:27 Dose: 650 mg Documented by: Al Hydrox/Mg Hydrox/Simethicone (Aluminum/Magnesium Susp 30 Ml Udc) 15 ml PO Q4H PRN PRN Reason: Dyspepsia Stop: 10/11/21 19:43 Aspirin (Aspirin 81 Mg Ectab) 81 mg PO [facility] Stop: 10/12/21 08:59 Last Admin: 09/17/21 08:25 Dose: 81 mg Documented by: Atorvastatin Calcium (Atorvastatin 40 Mg Tab) 80 mg PO [facility] Stop: 10/11/21 20:59 Last Admin: 09/16/21 19:59 Dose: 80 mg Documented by: Bisacodyl (Bisacodyl 10 Mg Supp) [address] DAILY PRN PRN Reason: Constipation Stop: 10/15/21 18:05 Clopidogrel Bisulfate (Clopidogrel Bisulfate 75 Mg Tab) [facility] Stop: 10/12/21 08:59 Last Admin: 09/17/21 08:25 Dose: 75 mg Documented by: Dextrose (Dextrose 50% 50 Ml Syringe) 25 - 50 ml IV UD PRN; Protocol PRN Reason: Hypoglycemia Protocol Stop: 10/11/21 19:43 Docusate Sodium (Docusate Sodium 100 Mg Cap) 100 mg PO BID [facility] Stop: 10/15/21 20:59 Last Admin: 09/17/21 08:24 Dose: 100 mg Documented by: Enoxaparin Sodium (Enoxaparin Inj 40 Mg/0.4 Ml Syr) 40 mg SQ Q24H RE[facility] Stop: 10/11/21 21:59 Last Admin: 09/16/21 19:59 Dose: 40 mg Documented by: Ferrous Sulfate (Ferrous Sulfate 325 Mg Tab) 325 mg PO TIDM [facility] Stop: 10/11/21 20:59 Last Admin: 09/17/21 08:25 Dose: 325 mg Documented by: Gabapentin (Gabapentin 100 Mg Cap) 200 mg PO BID REESE Stop: 10/11/21 20:59 Last Admin: 09/17/21 08:24 Dose: 200 mg Documented by: Glucagon (Glucagon For Inj 1 Mg Vial) 1 mg SQ UD PRN; Protocol PRN Reason: Hypoglycemia Protocol Stop: 10/11/21 19:43 Glucose (Glucose 10 Tabs/Tube) 4 - 8 tabs PO UD PRN; Protocol PRN Reason: Hypoglycemia Protocol Stop: 10/11/21 19:43 Glucose (Glucose 40% Gel 15 Gm Tube) 15 - 30 gm PO UD PRN; Protocol PRN Reason: Hypoglycemia Protocol Stop: 10/11/21 19:43 Hydromorphone HCl (Hydromorphone Inj 0.5 Mg/0.5 Ml Syr) 0.5 mg IV Q4H PRN PRN Reason: Pain or Pre PT Stop: 09/29/21 18:05 Furosemide 40 mg/ Syringe 4 mls @ 4 mls/min IV DAILY REESE Stop: 10/12/21 08:59 Last Admin: 09/17/21 08:24 Dose: 4 mls/min Documented by: Vancomycin HCl 750 mg/ Sodium (Chloride) 265 mls @ 200 mls/hr IV Q12H REESE Stop: 09/22/21 01:59 Last Infusion: 09/17/21 04:27 Dose: Infused Documented by: Insulin Aspart (Insulin Aspart 100 Units/Ml 3 Ml Pen) 0 units SC ACHS REESE Stop: 10/15/21 00:00 Last Admin: 09/16/21 21:13 Dose: Not Given Documented by: Insulin Glargine (Insulin Glargine Solostar 100 Units/Ml 3 Ml Pen) 5 units SC DAILY [facility] Stop: 10/17/21 08:59 Lisinopril (Lisinopril 10 Mg Tab) 10 mg PO QAM [facility] Stop: 10/13/21 08:59 Last Admin: 09/17/21 08:25 Dose: 10 mg Documented by: Magnesium Hydroxide (Magnesium Hydroxide Susp 30 Ml Udc) 30 ml PO Q12H PRN PRN Reason: Constipation Stop: 10/11/21 19:43 Magnesium Hydroxide (Magnesium Hydroxide Susp 30 Ml Udc) 30 ml PO Q6H PRN PRN Reason: Constipation Stop: 10/15/21 18:05 Magnesium Oxide (Magnesium Oxide 400 Mg Tab) 400 mg PO BID [facility] Stop: 10/13/21 12:29 Last Admin: 09/17/21 08:24 Dose: 400 mg Documented by: Metoclopramide HCl (Metoclopramide Hcl Inj 5 Mg/Ml 2 Ml Vial) 10 mg IV Q6H PRN PRN Reason: Nausea And Vomiting Stop: 10/15/21 18:05 Metoprolol Succinate (Metoprolol Succ 50mg Ext Rel Tab) 50 mg PO DAILY [facility] Stop: 10/12/21 08:59 Last Admin: 09/17/21 08:25 Dose: 50 mg Documented by: Miscellaneous (Carbohydrates For Hypoglycemia ) 15 - 30 gm PO UD PRN PRN Reason: Hypoglycemia Protocol Stop: 10/11/21 19:43 Last Admin: 09/13/21 07:10 Dose: 15 gm Documented by: Miscellaneous Information (Vancomycin Consult Active) 1 ea N/A UD PRN PRN Reason: Consult Stop: 10/12/21 12:09 Miscellaneous Information (Pharmacy Glycemic Mgmt Consult) 1 ea N/A UD PRN PRN Reason: Consult Stop: 10/13/21 12:10 Multivitamins (Multivitamin Tab) 1 tab PO QAM [facility] Stop: 10/16/21 08:59 Last Admin: 09/17/21 08:25 Dose: 1 tab Documented by: Naloxone HCl (Naloxone Hcl 0.4 Mg/1 Ml Vial/Carp) 0.1 mg IV Q5M PRN PRN Reason: Oversedation/Resp Depression Stop: 10/15/21 18:05 Nitroglycerin (Nitroglycerin Sl 0.4 Mg/Tab Tab) 0.4 mg SL UD PRN PRN Reason: Chest Pain Stop: 10/11/21 19:43 Ondansetron HCl (Ondansetron Inj 2 Mg/Ml 2 Ml Vial) 4 mg IV Q6H PRN PRN Reason: Nausea Stop: 10/11/21 19:43 Ondansetron HCl (Ondansetron Inj 2 Mg/Ml 2 Ml Vial) 4 mg IV Q6H PRN PRN Reason: Nausea And Vomiting Stop: 10/15/21 18:05 Pantoprazole Sodium (Pantoprazole 40 Mg Tab) 40 mg PO DAILY [facility] Stop: 10/12/21 08:59 Last Admin: 09/17/21 08:25 Dose: 40 mg Documented by: Polyethylene Glycol (Polyethylene (Miralax) 17 Gm Pack) 17 gm PO DAILY PRN PRN Reason: Constipation Stop: 10/11/21 19:43 Sennosides (Senna 8.6 Mg Tab) 17.2 mg PO HS [facility] Stop: 10/15/21 20:59 Last Admin: 09/16/21 19:59 Dose: 17.2 mg Documented by: Spironolactone (Spironolactone 12.5 Mg Tab) 12.5 mg PO DAILY [facility] Stop: 10/14/21 08:59 Last Admin: 09/17/21 08:25 Dose: 12.5 mg Documented by: Tamsulosin HCl (Tamsulosin Hcl 0.4 Mg Cap) 0.4 mg PO HS [facility] Stop: 10/11/21 20:59 Last Admin: 09/16/21 19:58 Dose: 0.4 mg Documented by: Tramadol HCl (Tramadol Hcl 50 Mg Tablet) 50 - 100 mg PO Q4H PRN PRN Reason: Pain & Pre PT Stop: 10/15/21 18:05 (1) Carotid stenosis Laterality: right Qualified Code(s): I65.21 - Occlusion and stenosis of right carotid artery (2) Diabetes mellitus Diabetes mellitus complication status: with other specified complication Diabetes mellitus retirement insulin use: unspecified 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
--- NOTE | 2021-09-17 12:13 | Pharmacy Report ---
Pharmacy Glycemic Short Note 2 - Date of Service September 17, 2021 - Glycemic Short BSG Results (Last 24 hours): 09/16/21 09/16/21 09/17/21 16:09 20:13 07:44 Glucose POC Glucose 128 H 74 56 L* 09/17/21 09/17/21 09/17/21 07:45 07:50 08:10 Glucose 60 L POC Glucose 64 L* 96 09/17/21 11:36 Glucose POC Glucose 86 OUTPATIENT ANTIDIABETIC REGIMEN: * metformin 850 mg BID ASSESSMENT: 09/17/21 * Patient's BSGs yesterday were 121- 230 - 128-74mg/dL. * Patient received 29 units of insulin (8 units of basal and 21 units of bolus). * Fasting BSG today was 56 mg/dL. * Since patient had hypoglycemic event with 8 units of Lantus, will reduce dose to 5 units daily. * After hyperglycemic at lunch, patient's BSGs trended down significantly. Loosen Novolog. 09/16/21 * Patient's BSGs yesterday were [phone]. Patient received 0 units of insulin. * Patient has diet ordered today but since fasting is stable will continue to hold basal. * Continue Novolog. 09/15/21 * Patient's BSGs yesterday were [phone]. Patient received 10 units of insulin (8 units of basal and 2 units of correctional). * Patient is NPO today. Hold basal insulin for now. * Continue Novolog. Background * Mr Coffman is a 71 y/o M with a PMH of T2DM on metformin who presents with an infection. * Patient's BSGs yesterday were [phone] and patient received 33 units of insulin (15 units of basal and 18 units of bolus). * Patient's fasting today was 56 and lunch was 85 mg/dL. * Per previous visit, Lantus 8 units daily produced excellent fastings. * Will plan for Lantus 8 units starting on 09/14 to allow for patient's BSGs to recover. Overnight checks to ensure patient does not suffer rebound hyperglycemia. * Novolog weight-based stress of 2. PLAN FOR INPATIENT GLYCEMIC CONTROL: * Hold outpatient oral diabetes medications * Basal insulin * Lantus 5 units daily * Bolus insulin * NovoLog per scale ACHS or Q6hrs while NPO * Goal Range: Low 110 mg/dL - High 140 mg/dL * Correction Factor: 30 mg/dL/unit * Nutritional / Prandial insulin per carb ratio of 1 unit per 10 grams CHO consumed PLAN FOR DISCHARGE: * Patient's HbA1C is well controlled and at goal. Can continue current regimen.
[2021-09-17] MEDS: ERTAPENEM SODIUM 1,000 MG in SODIUM CHLORIDE 0.9% 50 ML IV SCH (17:26)
[2021-09-17] MEDS: SENNA 8.6 MG TAB PO SCH (19:49)
[2021-09-17] MEDS: ATORVASTATIN 40 MG TAB PO SCH (19:49)
[2021-09-17] MEDS: TAMSULOSIN HCL 0.4 MG CAP PO SCH (19:51)
[2021-09-18] MEDS: PANTOprazole 40 MG TAB PO SCH (08:01)
[2021-09-18] MEDS: SPIRONOLACTONE 12.5 MG TAB PO SCH (08:01)
[2021-09-18] MEDS: FERROUS SULFATE 325 MG TAB PO SCH ×3 (08:01→17:19)
[2021-09-18] MEDS: CLOPIDOGREL BISULFATE 75 MG TAB PO SCH (08:01)
[2021-09-18] MEDS: MULTIVITAMIN TAB PO SCH (08:01)
[2021-09-18] MEDS: ASPIRIN 81 MG ECTAB PO SCH (08:01)
[2021-09-18] MEDS: DOCUSATE SODIUM 100 MG CAP PO SCH ×2 (08:02→20:09)
[2021-09-18] MEDS: MAGNESIUM OXIDE 400 MG TAB PO SCH ×2 (08:02→20:11)
[2021-09-18] MEDS: GABAPENTIN 100 MG CAP PO SCH ×2 (08:02→20:10)
[2021-09-18] MEDS: METOPROLOL SUCC 50MG EXT REL TAB PO SCH (08:02)
[2021-09-18] MEDS: INSULIN ASPART 100 UNITS/ML 3 ML PEN SC SCH ×4 (08:03→20:40)
[2021-09-18 08:19] LABS: Hematocrit (blood only) 33.5 % (42-52); Hemoglobin 11.1 g/dL (14.0-18.0); Mean Corpuscular Hemoglobin 28.9 pg (25-34); Mean Corpuscular Hgb Conc 33.1 g/dL (32-36); Mean Corpuscular Volume 87.2 fL (80-100); Mean Platelet Volume 9.6 fL (7.4-10.4); Platelet Count 234 K/uL (130-400); RDW Coefficient of Variation 17.3 % (11.5-14.5); RDW Standard Deviation 55.5 fL (36.4-46.3); Red Blood Count 3.84 M/uL (4.7-6.1); White Blood Count 5.08 K/uL (4.8-10.8)
--- NOTE | 2021-09-18 08:37 | Hospitalist Progress Note ---
Date of Service September 18, 2021 Assessment & Plan (1) Acute on chronic HFrEF (heart failure with reduced ejection fraction): (2) Ischemic cardiomyopathy: (3) CAD (coronary artery disease), council coronary artery: (4) Diabetes mellitus: (5) HTN (hypertension): (6) Hypomagnesemia: (7) Surgical wound, non healing: (8) Diabetic ulcer of right heel: (9) Hyperlipidemia LDL goal <70: (10) Carotid stenosis: (11) History of CVA with residual deficit: Plan: Patient is a 71 yo M w/CAD HERNANDEZ x3 to distal main and LAD 01/2021, chronic HFrEF (EF 30 to 35%), moderate MR, hx of R carotid artery stenosis s/p stent placement, history of PAD and dry gangrene to left great toe and 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 Acute on chronic HFrEF Ischemic cardiomyopathy CAD S/P HERNANDEZ x3 01/2021, recommendation was CABG and patient declined EF: 20-25% Appreciate Cardiology Input Continue IV diuretics Strict I's and O's, daily weights Continue low-sodium diet, fluid restriction Continue ASA, Plavix, statin, metoprolol and lisinopril Started also on spironolactone (hold Lasix today, September 18, for possible endovascular procedure today) Nonhealing wound of left BKA stump Blood culture negative H/O MRSA Started on Vancomycin empirically Appreciate Orthopedics Input 09/15 Now s/p Irrigation and Debridement Left Below Knee Amputation Wound 5.5cm x 2.4cm x 0.3 cm including skin, subcutaneous tissue and periwound slough, application 5.5 cm x 2.4 cm x 0.3 cm [employer] Allograft distal medial below- knee amputation stump (Left) - Bright English, DO Wound culture from the OR from September 15, positive for Enterobacter cloacae Started on ertapenem on September 17, vancomycin was discontinued, will further discuss with ID R heel wound Pt follows with wound care clinic, Maria E PEREZ Discussed with Maria E, who recommended to obtain MRI of heel (MRI shows edema, cellulitis, but no evidence of osteomyelitis, as below) R ankle MRI IMPRESSION: 1. Diffuse subcutaneous edema suggestive of cellulitis, lymphedema or venous stasis. Muscle atrophy with extensive intramuscular edema is suggestive of chronic denervation changes. 2. No acute fracture, significant marrow edema or evidence of osteomyelitis. 3. Additional findings as above. 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 English 06/2021 Follows w/ wound clinic and Dr. Wilkerson for PAD Plan was to obtain arterial Doppler for right lower extremity, obtained now IMPRESSION: 1. Elevated peak systolic velocities within the anterior tibial artery are compatible with hemodynamically significant stenosis. 2. No arterial occlusion. 3. Normal triphasic waveforms above the level of the knee. 4. Abnormal toe brachial index of 0.23. Angiogram with possible endovascular intervention on Saturday (09/18) w/ Dr. Wilkerson Continue home meds DM II HbA1C:6.5 Hold Metformin Lantus/NovoLog per protocol Hypertension On metoprolol and lisinopril Increased lisinopril to 10mg daily Hypomagnesemia Replace as needed Hyperlipidemia Continue statin H/O CVA with residual left-sided weakness Right internal carotid artery stenosis Continue ASA and statin S/P stent to right internal carotid artery DVT px: Lovenox SQ Code Status FULL CODE Admission and Anticipated Discharge Date Admission Date: September 11, 2021 Subjective Patient seen in follow-up of CHF, and left BKA wound, R heel wound Pt is laying in bed, in NAD Denies any chest pain, dyspnea, dizziness, nausea, abdominal pain Currently on room air, speaking in full sentences, still mildly edematous (but much improved) Pt is now status post I&D of left BKA stump with orthopedics. Plan for possible angio w/ Dr. Wilkerson today. Culture from the OR from left BKA grows Enterobacter cloacae. Patient started on ertapenem yesterday, discontinued vancomycin. Will discuss further with ID. Review of Systems Review of Systems: All systems reviewed & are unremarkable except as noted in Subjective Physical Exam Physical Exam: General Appearance:Moderately built and nourished, no apparent distress Head: normocephalic, Atraumatic Eyes: normal inspection, EOMI Neck: supple, Trachea midline Respiratory/Chest: mild bibasilar crackles, improved breath sounds from previous exam, No accessory muscle use, no wheezing Cardiovascular: S1, S2, No murmur Abdomen/GI: Soft, Non tender, Bowel sounds present Extremities/Musculoskeletal: normal inspection, L below-knee amputation (now in post-surg. dressings), (+ previously stump wound), + b/l LE edema, +LUE edema (much improved), R foot in dressings Neurologic/Psych:AAOX3, speech fluent, no facial asymmetry, moves extremities Skin: normal color, warm Results & Data Results & Data ([facility]) Vital Signs (Past 12 Hours) Vital Signs Temp Pulse Resp BP Pulse Ox 09/18/21 07:21 36.4 C L 74 18 159/79 H 93 09/18/21 03:59 36.6 C 72 18 135/70 91 09/17/21 23:44 36.5 C 70 18 132/80 91 Laboratory Results 09/18/21 09/18/21 09/18/21 Range/Units 07:39 07:39 07:30 WBC 5.08 (4.8-10.8) K/uL RBC 3.84 L (4.7-6.1) M/uL Hgb 11.1 L (14.0-18.0) g/dL Hct 33.5 L (42-52) % MCV 87.2 (80-100) fL MCH 28.9 (25-34) pg MCHC 33.1 (32-36) g/dL RDW Std Deviation 55.5 H (36.4-46.3) fL RDW Coeff of Vel 17.3 H (11.5-14.5) % Plt Count 234 (130-400) K/uL MPV 9.6 (7.4-10.4) fL Sodium 137 (136-145) mmol/L Potassium 4.0 (3.5-5.1) mmol/L Chloride 102 (98-107) mmol/L Carbon Dioxide 29 (21-32) mmol/L Anion Gap 6.0 (3-11) BUN 25 H (7-18) mg/dl Creatinine 0.99 (0.6-1.4) mg/dl Est Cr Clr Drug Dosing 81.8 ml/min Est GFR ( Amer) 89.1 ml/min Est GFR (Non-Af Amer) 76.8 ml/min BUN/Creatinine Ratio 25.2 H (10-20) Glucose 91 (70-99) mg/dl POC Glucose 97 (70-99) mg/dl Calcium 8.7 (8.5-10.1) mg/dl Phosphorus 3.6 (2.5-4.9) mg/dl Magnesium 2.0 (1.8-2.4) mg/dl 09/17/21 09/17/21 09/17/21 Range/Units 20:57 16:08 11:36 WBC (4.8-10.8) K/uL RBC (4.7-6.1) M/uL Hgb (14.0-18.0) g/dL Hct (42-52) % MCV (80-100) fL MCH (25-34) pg MCHC (32-36) g/dL RDW Std Deviation (36.4-46.3) fL RDW Coeff of Vel (11.5-14.5) % Plt Count (130-400) K/uL MPV (7.4-10.4) fL Sodium (136-145) mmol/L Potassium (3.5-5.1) mmol/L Chloride (98-107) mmol/L Carbon Dioxide (21-32) mmol/L Anion Gap (3-11) BUN (7-18) mg/dl Creatinine (0.6-1.4) mg/dl Est Cr Clr Drug Dosing ml/min Est GFR ( Amer) ml/min Est GFR (Non-Af Amer) ml/min BUN/Creatinine Ratio (10-20) Glucose (70-99) mg/dl POC Glucose 107 H 86 86 (70-99) mg/dl Calcium (8.5-10.1) mg/dl Phosphorus (2.5-4.9) mg/dl Magnesium (1.8-2.4) mg/dl Medications Administered Current Inpatient Medications Acetaminophen (Acetaminophen 325 Mg Tab) 650 mg PO Q4H PRN PRN Reason: Pain or Fever Stop: 10/11/21 19:43 Last Admin: 09/11/21 20:27 Dose: 650 mg Documented by: Al Hydrox/Mg Hydrox/Simethicone (Aluminum/Magnesium Susp 30 Ml Udc) 15 ml PO Q4H PRN PRN Reason: Dyspepsia Stop: 10/11/21 19:43 Aspirin (Aspirin 81 Mg Ectab) 81 mg PO QAM [facility] Stop: 10/12/21 08:59 Last Admin: 09/18/21 08:01 Dose: 81 mg Documented by: Atorvastatin Calcium (Atorvastatin 40 Mg Tab) 80 mg PO HS REESE Stop: 10/11/21 20:59 Last Admin: 09/17/21 19:49 Dose: 80 mg Documented by: Bisacodyl (Bisacodyl 10 Mg Supp) 10 mg LA DAILY PRN PRN Reason: Constipation Stop: 10/15/21 18:05 Clopidogrel Bisulfate (Clopidogrel Bisulfate 75 Mg Tab) 75 mg PO QAM REESE Stop: 10/12/21 08:59 Last Admin: 09/18/21 08:01 Dose: 75 mg Documented by: Dextrose (Dextrose 50% 50 Ml Syringe) 25 - 50 ml IV UD PRN; Protocol PRN Reason: Hypoglycemia Protocol Stop: 10/11/21 19:43 Docusate Sodium (Docusate Sodium 100 Mg Cap) 100 mg PO BID REESE Stop: 10/15/21 20:59 Last Admin: 09/18/21 08:02 Dose: 100 mg Documented by: Enoxaparin Sodium (Enoxaparin Inj 40 Mg/0.4 Ml Syr) 40 mg SQ Q24H REESE Stop: 10/11/21 21:59 Last Admin: 09/16/21 19:59 Dose: 40 mg Documented by: Ferrous Sulfate (Ferrous Sulfate 325 Mg Tab) 325 mg PO TIDM REESE Stop: 10/11/21 20:59 Last Admin: 09/18/21 08:01 Dose: Not Given Documented by: Gabapentin (Gabapentin 100 Mg Cap) 200 mg PO BID REESE Stop: 10/11/21 20:59 Last Admin: 09/18/21 08:02 Dose: 200 mg Documented by: Glucagon (Glucagon For Inj 1 Mg Vial) 1 mg SQ UD PRN; Protocol PRN Reason: Hypoglycemia Protocol Stop: 10/11/21 19:43 Glucose (Glucose 10 Tabs/Tube) 4 - 8 tabs PO UD PRN; Protocol PRN Reason: Hypoglycemia Protocol Stop: 10/11/21 19:43 Glucose (Glucose 40% Gel 15 Gm Tube) 15 - 30 gm PO UD PRN; Protocol PRN Reason: Hypoglycemia Protocol Stop: 10/11/21 19:43 Hydromorphone HCl (Hydromorphone Inj 0.5 Mg/0.5 Ml Syr) 0.5 mg IV Q4H PRN PRN Reason: Pain or Pre PT Stop: 09/29/21 18:05 Furosemide 40 mg/ Syringe 4 mls @ 4 mls/min IV DAILY REESE Stop: 10/12/21 08:59 Last Admin: 09/17/21 08:24 Dose: 4 mls/min Documented by: Ertapenem 1,000 mg/ Sodium (Chloride) 60 mls @ 100 mls/hr IV Q24H REESE Stop: 09/24/21 15:59 Last Infusion: 09/17/21 18:03 Dose: Infused Documented by: Insulin Aspart (Insulin Aspart 100 Units/Ml 3 Ml Pen) 0 units SC ACHS REESE Stop: 10/15/21 00:00 Last Admin: 09/18/21 08:03 Dose: Not Given Documented by: Lisinopril (Lisinopril 10 Mg Tab) 10 mg PO QAM REESE Stop: 10/13/21 08:59 Last Admin: 09/17/21 08:25 Dose: 10 mg Documented by: Magnesium Hydroxide (Magnesium Hydroxide Susp 30 Ml Udc) 30 ml PO Q12H PRN PRN Reason: Constipation Stop: 10/11/21 19:43 Magnesium Hydroxide (Magnesium Hydroxide Susp 30 Ml Udc) 30 ml PO Q6H PRN PRN Reason: Constipation Stop: 10/15/21 18:05 Magnesium Oxide (Magnesium Oxide 400 Mg Tab) 400 mg PO BID REESE Stop: 10/13/21 12:29 Last Admin: 09/18/21 08:02 Dose: 400 mg Documented by: Metoclopramide HCl (Metoclopramide Hcl Inj 5 Mg/Ml 2 Ml Vial) 10 mg IV Q6H PRN PRN Reason: Nausea And Vomiting Stop: 10/15/21 18:05 Metoprolol Succinate (Metoprolol Succ 50mg Ext Rel Tab) 50 mg PO DAILY REESE Stop: 10/12/21 08:59 Last Admin: 09/18/21 08:02 Dose: 50 mg Documented by: Miscellaneous (Carbohydrates For Hypoglycemia ) 15 - 30 gm PO UD PRN PRN Reason: Hypoglycemia Protocol Stop: 10/11/21 19:43 Last Admin: 09/13/21 07:10 Dose: 15 gm Documented by: Miscellaneous Information (Pharmacy Glycemic Mgmt Consult) 1 ea N/A UD PRN PRN Reason: Consult Stop: 10/13/21 12:10 Multivitamins (Multivitamin Tab) 1 tab PO QAM REESE Stop: 10/16/21 08:59 Last Admin: 09/18/21 08:01 Dose: 1 tab Documented by: Naloxone HCl (Naloxone Hcl 0.4 Mg/1 Ml Vial/Carp) 0.1 mg IV Q5M PRN PRN Reason: Oversedation/Resp Depression Stop: 10/15/21 18:05 Nitroglycerin (Nitroglycerin Sl 0.4 Mg/Tab Tab) 0.4 mg SL UD PRN PRN Reason: Chest Pain Stop: 10/11/21 19:43 Ondansetron HCl (Ondansetron Inj 2 Mg/Ml 2 Ml Vial) 4 mg IV Q6H PRN PRN Reason: Nausea Stop: 10/11/21 19:43 Ondansetron HCl (Ondansetron Inj 2 Mg/Ml 2 Ml Vial) 4 mg IV Q6H PRN PRN Reason: Nausea And Vomiting Stop: 10/15/21 18:05 Pantoprazole Sodium (Pantoprazole 40 Mg Tab) 40 mg PO DAILY REESE Stop: 10/12/21 08:59 Last Admin: 09/18/21 08:01 Dose: 40 mg Documented by: Polyethylene Glycol (Polyethylene (Miralax) 17 Gm Pack) 17 gm PO DAILY PRN PRN Reason: Constipation Stop: 10/11/21 19:43 Sennosides (Senna 8.6 Mg Tab) 17.2 mg PO HS REESE Stop: 10/15/21 20:59 Last Admin: 09/17/21 19:49 Dose: 17.2 mg Documented by: Spironolactone (Spironolactone 12.5 Mg Tab) 12.5 mg PO DAILY REESE Stop: 10/14/21 08:59 Last Admin: 09/18/21 08:01 Dose: 12.5 mg Documented by: Tamsulosin HCl (Tamsulosin Hcl 0.4 Mg Cap) 0.4 mg PO HS REESE Stop: 10/11/21 20:59 Last Admin: 09/17/21 19:51 Dose: 0.4 mg Documented by: Tramadol HCl (Tramadol Hcl 50 Mg Tablet) 50 - 100 mg PO Q4H PRN PRN Reason: Pain & Pre PT Stop: 10/15/21 18:05 (1) Carotid stenosis Laterality: right Qualified Code(s): I65.21 - Occlusion and stenosis of right carotid artery (2) Diabetes mellitus Diabetes mellitus complication status: with other specified complication Diabetes mellitus chcf insulin use: unspecified chcf insulin use status Diabetes mellitus type: other specified (including RODRI) Qualified Code(s): E13.69 - Other specified diabetes mellitus with other specified complication
[2021-09-18 08:45] LABS: BUN Creatinine Ratio 25.2 (10-20); Calcium 8.7 mg/dl (8.5-10.1); Creatinine Clr Calc Pharmacy 81.8 ml/min; Est GFR (African American) 89.1 ml/min; Est GFR (Non-African American) 76.8 ml/min; Phosphorus 3.6 mg/dl (2.5-4.9)
[2021-09-18] MEDS ORDERED: niCARdipine HCL INJ 2.5 MG/ML 10 ML AMP ONE (12:51)
[2021-09-18] MEDS ORDERED: MIDAZOLAM HCL 1 MG/ML 2ML VIAL ONE ×2 (12:51→13:51)
[2021-09-18] MEDS ORDERED: HEPARIN (PORCINE) 1000 UNIT/ML 10 ML (CATH LAB USE ONLY) ONE ×2 (12:51→14:18)
[2021-09-18] MEDS ORDERED: fentaNYL citrate 100 MCG/2 ML VIAL ONE ×2 (12:51→14:38)
[2021-09-18] MEDS ORDERED: NITROGLYCERIN/D5W 100MCG/ML 20ML SYR ONE (12:52)
--- NOTE | 2021-09-18 12:54 | Pharmacy Report ---
Pharmacy Glycemic Short Note 2 - Date of Service September 18, 2021 - Glycemic Short BSG Results (Last 24 hours): 09/17/21 09/17/21 09/18/21 16:08 20:57 07:30 Glucose POC Glucose 86 107 H 97 09/18/21 09/18/21 07:39 11:50 Glucose 91 POC Glucose 96 OUTPATIENT ANTIDIABETIC REGIMEN: * metformin 850 mg BID ASSESSMENT: 09/18/21 * Patient's BSGs yesterday were 30-31-89-107mg/dL. * Patient received 18 units of insulin (5 units of basal and 13 units of bolus). * Fasting BSG today was 97 mg/dL. * Patient NPO today so hold Lantus. Resume Lantus tomorrow. * BSGs stable continue Novolog. 09/17/21 * Patient's BSGs yesterday were 121- 230 - 128-74mg/dL. * Patient received 29 units of insulin (8 units of basal and 21 units of bolus). * Fasting BSG today was 56 mg/dL. * Since patient had hypoglycemic event with 8 units of Lantus, will reduce dose to 5 units daily. * After hyperglycemic at lunch, patient's BSGs trended down significantly. Loosen Novolog. 09/16/21 * Patient's BSGs yesterday were [phone]. Patient received 0 units of insulin. * Patient has diet ordered today but since fasting is stable will continue to hold basal. * Continue Novolog. 09/15/21 * Patient's BSGs yesterday were [phone]. Patient received 10 units of insulin (8 units of basal and 2 units of correctional). * Patient is NPO today. Hold basal insulin for now. * Continue Novolog. Background * Mr Coffman is a 71 y/o M with a PMH of T2DM on metformin who presents with an infection. * Patient's BSGs yesterday were [phone] and patient received 33 units of insulin (15 units of basal and 18 units of bolus). * Patient's fasting today was 56 and lunch was 85 mg/dL. * Per previous visit, Lantus 8 units daily produced excellent fastings. * Will plan for Lantus 8 units starting on 09/14 to allow for patient's BSGs to recover. Overnight checks to ensure patient does not suffer rebound hyperglycemia. * Novolog weight-based stress of 2. PLAN FOR INPATIENT GLYCEMIC CONTROL: * Hold outpatient oral diabetes medications * Basal insulin * Lantus 5 units daily * Bolus insulin * NovoLog per scale ACHS or Q6hrs while NPO * Goal Range: Low 110 mg/dL - High 140 mg/dL * Correction Factor: 30 mg/dL/unit * Nutritional / Prandial insulin per carb ratio of 1 unit per 10 grams CHO consumed PLAN FOR DISCHARGE: * Patient's HbA1C is well controlled and at goal. Can continue current regimen.
[2021-09-18] MEDS ORDERED: VANCOMYCIN TROUGH ONE (13:30)
[2021-09-18] MEDS ORDERED: CLOPIDOGREL BISULFATE 300 MG TAB ONE (14:52)
--- NOTE | 2021-09-18 15:08 | Pre Anesthesia Assessment ---
Date of Service September 18, 2021 Pre Sedation Assessment Vital Signs Temp Pulse Pulse Resp BP Pulse Ox 09/18/21 11:56 97.7 F 73 18 162/89 H 94 09/18/21 08:00 76 09/18/21 07:21 97.5 F L 74 18 159/79 H 93 09/18/21 03:59 97.9 F 72 18 135/70 91 09/17/21 23:44 97.7 F 70 18 132/80 91 09/17/21 18:49 98.1 F 70 18 122/74 97 09/17/21 16:30 98.1 F 63 18 130/74 95 Cardiovascular RRR, no murmur, no edema Respiratory normal respiratory effort, lungs clear to auscultation Pre-Sedation Airway Assessment Smoking Status: Former smoker Hx Sleep Apnea: No Hx Difficult Intubation: No Short, Thick Neck: No Thyromental Distance: > or= 3.5 Finger Breadths Oral Cavity: + WNL Mallampati Class: III ASA: ASA4 NPO Status Date of Last Intake of Fluids: 09/17/21 Time of Last Intake of Fluids: 20:00 Date of Last Intake of Solid Food: 09/17/21 Time of Last Intake of Solid Foods: 20:00 Procedure Planning Contraindications for Sedation: none Current Medications Reviewed: Yes Notes The planned sedation has been discussed with the patient. Informed Consent was obtained. I have identified the patient, determined the appropriateness of sedation and have assessed the patient immediately prior to the procedure. All medicine(s) and interventions are by my order.
--- NOTE | 2021-09-18 15:09 | Post Anesthesia Assessment ---
Date of Service September 18, 2021 Post Sedation Assessment Vital Signs Temp Pulse Pulse Resp BP Pulse Ox 09/18/21 11:56 97.7 F 73 18 162/89 H 94 09/18/21 08:00 76 09/18/21 07:21 97.5 F L 74 18 159/79 H 93 09/18/21 03:59 97.9 F 72 18 135/70 91 09/17/21 23:44 97.7 F 70 18 132/80 91 09/17/21 18:49 98.1 F 70 18 122/74 97 09/17/21 16:30 98.1 F 63 18 130/74 95 Recovery Score Activity: Moves 4 extremities Respiration: Deep Breath/Cough Circulation: +/-20% PreAnes Value Consciousness: Fully Awake Oxygen Saturation: > 92% On Room Air Post Anesthesia Score: 10 Discharge Sedation Level of Care: Fast Track Phase II Post Sedation Plan On clinical assessment, the patient appears to have tolerated the sedation without complications. Patient is recovering as anticipated. Patient will continue to be monitored by nursing and may be discharged when sedation discharge criteria are met per below protocol. Upon Completions of procedure up to 15 minutes continue every 5 minute vital signs and the P.A.R. score; then discharge to a Phase I or Fast Track to Phase II per the following guidelines: * Discharge Patient to appropriate Phase II area if PAR is 8 or greater or return to pre- procedure baseline. The post - procedure orders will be as directed. * If PAR score is less than 8 or not return to pre-procedure baseline then patient will follow Phase I monitoring till PAR is reached for Phase II. The Phase I may be done in procedure room or may call to secure a Phase I area. * If naloxone or flumazenil are used for reversal, hold in Phase I for continued monitoring from when last reversal dose was given for a minimum of 60 minutes or longer pending the nurse and/or physician discretion of patient condition before discharge to Phase II. Please call the Sedation Physician to re-evaluate and complete post-note for discharge to Phase II area. Do NOT discharge from procedure sedation or Phase 1 until post- sedation evaluation note is complete by procedure /sedation MD Sedation Discharge Instructions to be given to the patient at discharge to home.
--- NOTE | 2021-09-18 15:13 | Endovascular Procedure Note ---
[facility] Endovascular Procedure Rpt Pre & Post Diagnosis Peripheral arterial disease I identified the patient and participated in the time-out.: Yes Procedure Operation Date: 09/18/21 11:00 Actual Procedures p Angio Extremity Unilateral - Jayesh Wilkerson MD Surgeon Sharif Wilkerson MD Fabric Sourcer Deibler Estimated Blood Loss 20 Findings Consistent with Post-Op Diagnosis Abdominal aorta--no significant aneurysmal or stenotic disease Right lower extremity-- -Common iliac, external iliac, internal iliac widely patent -BID ANALYST, profunda widely patent -SFA widely patent -Popliteal widely patent -BRITTANIE 95% proximal, 95% mid. Distal vessel patent to the foot/DPA. -POWER PLANT ELECTRICIAN proximal to mid severe diffuse disease prior to subtotal occlusion. Distal vessel fills via collaterals from peroneal. Peroneal 99% proximal stenosis, diffuse mid segment disease up to 90% -DPA widely patent. Small deep plantar artery patent to lateral plantar. Plantar arteries retrograde via small deep plantar and collaterals from BRITTANIE. Left lower extremity-- -Common iliac, external iliac, internal iliac widely patent -BID ANALYST, profunda widely patent Anesthesia Type RN Sedation Radiation Exposure (mGv) Radiation (mGy): 294 Contrast Contrast: 65 Complications none Disposition Accompanied Patient To Recovery: No Disposition: PCU Description of Procedure Left BID ANALYST obtained under ultrasound guidance, short 5Fr sheath placed Abdominal aortogram and proximal right lower extremity angiogram performed with RIM catheter. Selective angiography with quick cross catheter placed in SFA 6 Fr 65 cm destination sheath placed from left BID ANALYST to right SFA. Attempt made to cross diffuse POWER PLANT ELECTRICIAN disease/mid segment occlusion antegrade but unsuccessful 0.14 command wire redirected to peroneal and navigated across proximal/mid stenosis Angioplasty of proximal/mid peroneal with 2.0, 2.5 balloons. Residual stenosis in proximal peroneal redilated with 3.0 balloon. Peroneal expanded well with no apparent flow-limiting dissection. 0.14 command wire redirected into anterior tibial and across proximal/mid stenosis Proximal/mid BRITTANIE dilated with 3.0 balloon Residual proximal stenosis redilated with 3.5 balloon Post procedure good angiographic result, mild residual stenosis, no evidence of dissection and brisk 2 vessel run-off. Contrast used: 65 Moderate sedation: [id number] Access closure: Angio-Seal Summary: 1. Right lower extremity --widely patent iliacs, BID ANALYST, SFA/popliteal arteries. 95% proximal/mid BRITTANIE, diffuse up to 99% proximal peroneal, diffuse POWER PLANT ELECTRICIAN disease prior to subtotal mid occlusion. Distal POWER PLANT ELECTRICIAN fills via collaterals from peroneal. 2. Left lower extremity --widely patent iliacs, BID ANALYST. 3. Successful angioplasty of proximal to mid anterior tibial artery with 3.5 balloon. 4. Successful angioplasty of proximal to mid peroneal artery with 3.0 balloon. Final result: Brisk two-vessel runoff to the foot with improved collateral flow to distal POWER PLANT ELECTRICIAN and heel ulcer bed. Recommendations: Continue long-term DAPT with aspirin, clopidogrel Follow-up non-invasive vascular testing in 1-2 weeks. Pending vascular testing and wound healing may need to consider additional intervention to POWER PLANT ELECTRICIAN via retrograde approach. I attest to the content of the Intraoperative Record and any orders documented therein. Any exceptions are noted below. Vascular Charges Angiography/Venography Procedure 1: Angiography/Venography charges: [id number] Initial 3rd order or selective abd, pelvic, or LE branch Procedure 2: Angiography/Venography charges: [id number] Aortography, abd + b/l iliofem LE, catheter, radiological S&I Lower Extremity Interventions Procedure 1: Lower Extremity Intervention charges: [id number] Angioplasty, tibial, peroneal artery, unilateral, initial vessel Procedure 2: Lower Extremity Intervention charges: [id number] Angioplasty, tibial, peroneal artery, UL each add'l vessel Additional Services Procedure 1: Additional Services Charges: [id number] Ultrasound guidance - vascular access Procedure 2: Additional Services Charges: 00765 Moderate sedation initial 15 min Procedure 3: Additional Services Charges: 28479 Moderate sedation, each additional 15 min
[2021-09-18] MEDS ORDERED: SODIUM CHLORIDE 0.9% 1000ML 1,000 ML IV SCH (15:45)
[2021-09-18] MEDS: ERTAPENEM SODIUM 1,000 MG in SODIUM CHLORIDE 0.9% 50 ML IV SCH (16:42)
[2021-09-18] MEDS: ATORVASTATIN 40 MG TAB PO SCH (20:09)
[2021-09-18] MEDS: TAMSULOSIN HCL 0.4 MG CAP PO SCH (20:10)
[2021-09-18] MEDS: SENNA 8.6 MG TAB PO SCH (20:11)
[2021-09-19 06:02] LABS: Hematocrit (blood only) 32.6 % (42-52); Hemoglobin 10.6 g/dL (14.0-18.0); Mean Corpuscular Hemoglobin 28.3 pg (25-34); Mean Corpuscular Hgb Conc 32.5 g/dL (32-36); Mean Corpuscular Volume 87.2 fL (80-100); Mean Platelet Volume 9.4 fL (7.4-10.4); Platelet Count 213 K/uL (130-400); RDW Coefficient of Variation 17.1 % (11.5-14.5); RDW Standard Deviation 54.4 fL (36.4-46.3); Red Blood Count 3.74 M/uL (4.7-6.1); White Blood Count 5.08 K/uL (4.8-10.8)
[2021-09-19 06:29] LABS: BUN Creatinine Ratio 24.3 (10-20); Calcium 8.2 mg/dl (8.5-10.1); Creatinine Clr Calc Pharmacy 93.1 ml/min; Est GFR (African American) 101.3 ml/min; Est GFR (Non-African American) 87.4 ml/min; Potassium 3.9 mmol/L (3.5-5.1)
[2021-09-19] MEDS: INSULIN ASPART 100 UNITS/ML 3 ML PEN SC SCH ×4 (08:00→20:43)
[2021-09-19] MEDS: MAGNESIUM OXIDE 400 MG TAB PO SCH ×2 (08:18→19:31)
[2021-09-19] MEDS: PANTOprazole 40 MG TAB PO SCH (08:18)
[2021-09-19] MEDS: DOCUSATE SODIUM 100 MG CAP PO SCH ×2 (08:19→19:30)
[2021-09-19] MEDS: ASPIRIN 81 MG ECTAB PO SCH (08:19)
[2021-09-19] MEDS: CLOPIDOGREL BISULFATE 75 MG TAB PO SCH (08:19)
[2021-09-19] MEDS: FERROUS SULFATE 325 MG TAB PO SCH ×3 (08:19→17:27)
[2021-09-19] MEDS: GABAPENTIN 100 MG CAP PO SCH ×2 (08:19→19:29)
[2021-09-19] MEDS: MULTIVITAMIN TAB PO SCH (08:19)
[2021-09-19] MEDS: METOPROLOL SUCC 50MG EXT REL TAB PO SCH (08:19)
[2021-09-19] MEDS: SPIRONOLACTONE 12.5 MG TAB PO SCH (08:20)
[2021-09-19] MEDS: INSULIN GLARGINE SOLOSTAR 100 UNITS/ML 3 ML PEN SC SCH (08:20)
--- NOTE | 2021-09-19 09:10 | Hospitalist Progress Note ---
Date of Service September 19, 2021 Assessment & Plan (1) Acute on chronic HFrEF (heart failure with reduced ejection fraction): (2) Ischemic cardiomyopathy: (3) CAD (coronary artery disease), sun'aq coronary artery: (4) Diabetes mellitus: (5) HTN (hypertension): (6) Hypomagnesemia: (7) Surgical wound, non healing: (8) Diabetic ulcer of right heel: (9) Hyperlipidemia LDL goal <70: (10) Carotid stenosis: (11) History of CVA with residual deficit: Plan: Patient is a 71 yo M w/CAD HERNANDEZ x3 to distal main and LAD 01/2021, chronic HFrEF (EF 30 to 35%), moderate MR, hx of R carotid artery stenosis s/p stent placement, history of PAD and dry gangrene to left great toe and 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 Acute on chronic HFrEF Ischemic cardiomyopathy CAD S/P HERNANDEZ x3 01/2021, recommendation was CABG and patient declined EF: 20-25% Appreciate Cardiology Input Continue IV diuretics Strict I's and O's, daily weights Continue low-sodium diet, fluid restriction Continue ASA, Plavix, statin, metoprolol and lisinopril Started also on spironolactone (held Lasix, September 18, for possible endovascular procedure) Nonhealing wound of left BKA stump Blood culture negative H/O MRSA Started on Vancomycin empirically Appreciate Orthopedics Input 09/15 Now s/p Irrigation and Debridement Left Below Knee Amputation Wound 5.5cm x 2.4cm x 0.3 cm including skin, subcutaneous tissue and periwound slough, application 5.5 cm x 2.4 cm x 0.3 cm [employer] Allograft distal medial below- knee amputation stump (Left) - Bright English, DO Wound culture from the OR from September 15, positive for Enterobacter cloacae Started on ertapenem on September 17, vancomycin was discontinued, further discussed with ID Per ID Continue Ertapenem 1000 mg daily until September 30, 2021 Needs weekly CBC BMP, wound care and ID follow-up as outpatient Update: Per Lala SALAS cannot provide ertapenem R heel wound Pt follows with wound care clinic, Maria E PEREZ Discussed with Maria E, who recommended to obtain MRI of heel (MRI shows edema, cellulitis, but no evidence of osteomyelitis, as below) R ankle MRI IMPRESSION: 1. Diffuse subcutaneous edema suggestive of cellulitis, lymphedema or venous stasis. Muscle atrophy with extensive intramuscular edema is suggestive of chronic denervation changes. 2. No acute fracture, significant marrow edema or evidence of osteomyelitis. 3. Additional findings as above. 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 English 06/2021 Follows w/ wound clinic and Dr. Wilkerson for PAD Plan was to obtain arterial Doppler for right lower extremity, obtained now IMPRESSION: 1. Elevated peak systolic velocities within the anterior tibial artery are compatible with hemodynamically significant stenosis. 2. No arterial occlusion. 3. Normal triphasic waveforms above the level of the knee. 4. Abnormal toe brachial index of 0.23. Now s/p vasc. intervention (09/18) w/ Dr. Wilkerson 1. Right lower extremity --widely patent iliacs, CLEARANCE DIVER, SFA/popliteal arteries. 95% proximal/mid BRITTANIE, diffuse up to 99% proximal peroneal, diffuse DIE BAKER disease prior to subtotal mid occlusion. Distal DIE BAKER fills via collaterals from peroneal. 2. Left lower extremity --widely patent iliacs, CLEARANCE DIVER. 3. Successful angioplasty of proximal to mid anterior tibial artery with 3.5 balloon. 4. Successful angioplasty of proximal to mid peroneal artery with 3.0 balloon. Final result: Brisk two-vessel runoff to the foot with improved collateral flow to distal DIE BAKER and heel ulcer bed. Recommendations: Continue long-term DAPT with aspirin, clopidogrel Follow-up non-invasive vascular testing in 1-2 weeks. DM II HbA1C:6.5 Hold Metformin Lantus/NovoLog per protocol Hypertension On metoprolol and lisinopril Increased lisinopril to 10mg daily Hypomagnesemia Replace as needed Hyperlipidemia Continue statin H/O CVA with residual left-sided weakness Right internal carotid artery stenosis Continue ASA and statin S/P stent to right internal carotid artery DVT px: Lovenox SQ Code Status FULL CODE Admission and Anticipated Discharge Date Admission Date: September 11, 2021 Subjective Patient seen in follow-up of CHF, and left BKA wound, R heel wound Pt is laying in bed, in NAD Denies any chest pain, dyspnea, dizziness, nausea, abdominal pain Currently on room air, speaking in full sentences, still mildly edematous (but much improved) Pt is now s/p I&D of left BKA stump with orthopedics. He is also s/p endovasc. procedure w/ Dr. Wilkerson yesterday. Culture from the OR from left BKA grows Enterobacter cloacae. Pt will need to be on Ertapenem on DC. Review of Systems Review of Systems: All systems reviewed & are unremarkable except as noted in Subjective Physical Exam Physical Exam: General Appearance:Moderately built and nourished, no apparent distress Head: normocephalic, Atraumatic Eyes: normal inspection, EOMI Neck: supple, Trachea midline Respiratory/Chest: mild bibasilar crackles, improved breath sounds from previous exam, No accessory muscle use, no wheezing Cardiovascular: S1, S2, No murmur Abdomen/GI: Soft, Non tender, Bowel sounds present Extremities/Musculoskeletal: normal inspection, L below-knee amputation (now in post-surg. dressings), (+ previously stump wound), + b/l LE edema (improved), + LUE edema (much improved), R foot in dressings Neurologic/Psych:AAOX3, speech fluent, no facial asymmetry, moves extremities Skin: normal color, warm Results & Data Results & Data ([facility]) Vital Signs (Past 12 Hours) Vital Signs Temp Pulse Pulse Resp BP Pulse Ox 09/19/21 07:54 36.7 C 82 18 149/74 H 93 09/19/21 07:30 69 09/19/21 04:22 75 09/19/21 03:30 36.6 C 74 16 146/82 H 92 09/18/21 23:32 36.4 C L 73 18 153/81 H 94 Laboratory Results 09/19/21 09/19/21 09/18/21 Range/Units 05:23 05:23 19:59 WBC 5.08 (4.8-10.8) K/uL RBC 3.74 L (4.7-6.1) M/uL Hgb 10.6 L (14.0-18.0) g/dL Hct 32.6 L (42-52) % MCV 87.2 (80-100) fL MCH 28.3 (25-34) pg MCHC 32.5 (32-36) g/dL RDW Std Deviation 54.4 H (36.4-46.3) fL RDW Coeff of Vel 17.1 H (11.5-14.5) % Plt Count 213 (130-400) K/uL MPV 9.4 (7.4-10.4) fL Activ Coag Time Kaolin (94-140) SECONDS Sodium 137 (136-145) mmol/L Potassium 3.9 (3.5-5.1) mmol/L Chloride 103 (98-107) mmol/L Carbon Dioxide 29 (21-32) mmol/L Anion Gap 5.0 (3-11) BUN 21 H (7-18) mg/dl Creatinine 0.87 (0.6-1.4) mg/dl Est Cr Clr Drug Dosing 93.1 ml/min Est GFR ( Amer) 101.3 ml/min Est GFR (Non-Af Amer) 87.4 ml/min BUN/Creatinine Ratio 24.3 H (10-20) Glucose 105 H (70-99) mg/dl POC Glucose 123 H (70-99) mg/dl Calcium 8.2 L (8.5-10.1) mg/dl 09/18/21 09/18/21 09/18/21 Range/Units 16:51 14:53 14:15 WBC (4.8-10.8) K/uL RBC (4.7-6.1) M/uL Hgb (14.0-18.0) g/dL Hct (42-52) % MCV (80-100) fL MCH (25-34) pg MCHC (32-36) g/dL RDW Std Deviation (36.4-46.3) fL RDW Coeff of Vel (11.5-14.5) % Plt Count (130-400) K/uL MPV (7.4-10.4) fL Activ Coag Time Kaolin 252 H 219 H (94-140) SECONDS Sodium (136-145) mmol/L Potassium (3.5-5.1) mmol/L Chloride (98-107) mmol/L Carbon Dioxide (21-32) mmol/L Anion Gap (3-11) BUN (7-18) mg/dl Creatinine (0.6-1.4) mg/dl Est Cr Clr Drug Dosing ml/min Est GFR ( Amer) ml/min Est GFR (Non-Af Amer) ml/min BUN/Creatinine Ratio (10-20) Glucose (70-99) mg/dl POC Glucose 109 H (70-99) mg/dl Calcium (8.5-10.1) mg/dl 09/18/21 Range/Units 11:50 WBC (4.8-10.8) K/uL RBC (4.7-6.1) M/uL Hgb (14.0-18.0) g/dL Hct (42-52) % MCV (80-100) fL MCH (25-34) pg MCHC (32-36) g/dL RDW Std Deviation (36.4-46.3) fL RDW Coeff of Vel (11.5-14.5) % Plt Count (130-400) K/uL MPV (7.4-10.4) fL Activ Coag Time Kaolin (94-140) SECONDS Sodium (136-145) mmol/L Potassium (3.5-5.1) mmol/L Chloride (98-107) mmol/L Carbon Dioxide (21-32) mmol/L Anion Gap (3-11) BUN (7-18) mg/dl Creatinine (0.6-1.4) mg/dl Est Cr Clr Drug Dosing ml/min Est GFR ( Amer) ml/min Est GFR (Non-Af Amer) ml/min BUN/Creatinine Ratio (10-20) Glucose (70-99) mg/dl POC Glucose 96 (70-99) mg/dl Calcium (8.5-10.1) mg/dl Medications Administered Current Inpatient Medications Acetaminophen (Acetaminophen 325 Mg Tab) 650 mg PO Q4H PRN PRN Reason: Pain or Fever Stop: 10/11/21 19:43 Last Admin: 09/11/21 20:27 Dose: 650 mg Documented by: Al Hydrox/Mg Hydrox/Simethicone (Aluminum/Magnesium Susp 30 Ml Udc) 15 ml PO Q4H PRN PRN Reason: Dyspepsia Stop: 10/11/21 19:43 Aspirin (Aspirin 81 Mg Ectab) [facility] [place] Stop: 10/12/21 08:59 Last Admin: 09/19/21 08:19 Dose: 81 mg Documented by: Atorvastatin Calcium (Atorvastatin 40 Mg Tab) 80 mg PO HS REESE Stop: 10/11/21 20:59 Last Admin: 09/18/21 20:09 Dose: 80 mg Documented by: Bisacodyl (Bisacodyl 10 Mg Supp) 10 mg OR DAILY PRN PRN Reason: Constipation Stop: 10/15/21 18:05 Clopidogrel Bisulfate (Clopidogrel Bisulfate 75 Mg Tab) 75 mg PO QAM REESE Stop: 10/12/21 08:59 Last Admin: 09/19/21 08:19 Dose: 75 mg Documented by: Dextrose (Dextrose 50% 50 Ml Syringe) 25 - 50 ml IV UD PRN; Protocol PRN Reason: Hypoglycemia Protocol Stop: 10/11/21 19:43 Docusate Sodium (Docusate Sodium 100 Mg Cap) 100 mg PO BID REESE Stop: 10/15/21 20:59 Last Admin: 09/19/21 08:19 Dose: 100 mg Documented by: Enoxaparin Sodium (Enoxaparin Inj 40 Mg/0.4 Ml Syr) 40 mg SQ Q24H REESE Stop: 10/11/21 21:59 Last Admin: 09/16/21 19:59 Dose: 40 mg Documented by: Ferrous Sulfate (Ferrous Sulfate 325 Mg Tab) 325 mg PO TIDM REESE Stop: 10/11/21 20:59 Last Admin: 09/19/21 08:19 Dose: 325 mg Documented by: Gabapentin (Gabapentin 100 Mg Cap) 200 mg PO BID REESE Stop: 10/11/21 20:59 Last Admin: 09/19/21 08:19 Dose: 200 mg Documented by: Glucagon (Glucagon For Inj 1 Mg Vial) 1 mg SQ UD PRN; Protocol PRN Reason: Hypoglycemia Protocol Stop: 10/11/21 19:43 Glucose (Glucose 10 Tabs/Tube) 4 - 8 tabs PO UD PRN; Protocol PRN Reason: Hypoglycemia Protocol Stop: 10/11/21 19:43 Glucose (Glucose 40% Gel 15 Gm Tube) 15 - 30 gm PO UD PRN; Protocol PRN Reason: Hypoglycemia Protocol Stop: 10/11/21 19:43 Hydromorphone HCl (Hydromorphone Inj 0.5 Mg/0.5 Ml Syr) 0.5 mg IV Q4H PRN PRN Reason: Pain or Pre PT Stop: 09/29/21 18:05 Furosemide 40 mg/ Syringe 4 mls @ 4 mls/min IV DAILY REESE Stop: 10/12/21 08:59 Last Admin: 09/17/21 08:24 Dose: 4 mls/min Documented by: Ertapenem 1,000 mg/ Sodium (Chloride) 60 mls @ 100 mls/hr IV Q24H [facility] Stop: 09/24/21 15:59 Last Infusion: 09/18/21 17:26 Dose: Infused Documented by: Insulin Aspart (Insulin Aspart 100 Units/Ml 3 Ml Pen) 0 units SC ACHS REESE Stop: 10/15/21 00:00 Last Admin: 09/19/21 08:00 Dose: Not Given Documented by: Insulin Glargine (Insulin Glargine Solostar 100 Units/Ml 3 Ml Pen) 5 units SC DAILY [facility] Stop: 10/19/21 08:59 Last Admin: 09/19/21 08:20 Dose: 5 units Documented by: Lisinopril (Lisinopril 10 Mg Tab) 10 mg PO QAM [facility] Stop: 10/13/21 08:59 Last Admin: 09/17/21 08:25 Dose: 10 mg Documented by: Magnesium Hydroxide (Magnesium Hydroxide Susp 30 Ml Udc) 30 ml PO Q12H PRN PRN Reason: Constipation Stop: 10/11/21 19:43 Magnesium Hydroxide (Magnesium Hydroxide Susp 30 Ml Udc) 30 ml PO Q6H PRN PRN Reason: Constipation Stop: 10/15/21 18:05 Magnesium Oxide (Magnesium Oxide 400 Mg Tab) 400 mg PO BID [facility] Stop: 10/13/21 12:29 Last Admin: 09/19/21 08:18 Dose: 400 mg Documented by: Metoclopramide HCl (Metoclopramide Hcl Inj 5 Mg/Ml 2 Ml Vial) 10 mg IV Q6H PRN PRN Reason: Nausea And Vomiting Stop: 10/15/21 18:05 Metoprolol Succinate (Metoprolol Succ 50mg Ext Rel Tab) 50 mg PO DAILY [facility] Stop: 10/12/21 08:59 Last Admin: 09/19/21 08:19 Dose: 50 mg Documented by: Miscellaneous (Carbohydrates For Hypoglycemia ) 15 - 30 gm PO UD PRN PRN Reason: Hypoglycemia Protocol Stop: 10/11/21 19:43 Last Admin: 09/13/21 07:10 Dose: 15 gm Documented by: Miscellaneous Information (Pharmacy Glycemic Mgmt Consult) 1 ea N/A UD PRN PRN Reason: Consult Stop: 10/13/21 12:10 Multivitamins (Multivitamin Tab) 1 tab PO QAM REESE Stop: 10/16/21 08:59 Last Admin: 09/19/21 08:19 Dose: 1 tab Documented by: Naloxone HCl (Naloxone Hcl 0.4 Mg/1 Ml Vial/Carp) 0.1 mg IV Q5M PRN PRN Reason: Oversedation/Resp Depression Stop: 10/15/21 18:05 Nitroglycerin (Nitroglycerin Sl 0.4 Mg/Tab Tab) 0.4 mg SL UD PRN PRN Reason: Chest Pain Stop: 10/11/21 19:43 Ondansetron HCl (Ondansetron Inj 2 Mg/Ml 2 Ml Vial) 4 mg IV Q6H PRN PRN Reason: Nausea Stop: 10/11/21 19:43 Ondansetron HCl (Ondansetron Inj 2 Mg/Ml 2 Ml Vial) 4 mg IV Q6H PRN PRN Reason: Nausea And Vomiting Stop: 10/15/21 18:05 Pantoprazole Sodium (Pantoprazole 40 Mg Tab) 40 mg PO DAILY REESE Stop: 10/12/21 08:59 Last Admin: 09/19/21 08:18 Dose: 40 mg Documented by: Polyethylene Glycol (Polyethylene (Miralax) 17 Gm Pack) 17 gm PO DAILY PRN PRN Reason: Constipation Stop: 10/11/21 19:43 Sennosides (Senna 8.6 Mg Tab) 17.2 mg PO HS [facility] Stop: 10/15/21 20:59 Last Admin: 09/18/21 20:11 Dose: Not Given Documented by: Spironolactone (Spironolactone 12.5 Mg Tab) 12.5 mg PO DAILY REESE Stop: 10/14/21 08:59 Last Admin: 09/19/21 08:20 Dose: 12.5 mg Documented by: Tamsulosin HCl (Tamsulosin Hcl 0.4 Mg Cap) 0.4 mg PO HS REESE Stop: 10/11/21 20:59 Last Admin: 09/18/21 20:10 Dose: 0.4 mg Documented by: Tramadol HCl (Tramadol Hcl 50 Mg Tablet) 50 - 100 mg PO Q4H PRN PRN Reason: Pain & Pre PT Stop: 10/15/21 18:05 (1) Carotid stenosis Laterality: right Qualified Code(s): I65.21 - Occlusion and stenosis of right carotid artery (2) Diabetes mellitus Diabetes mellitus complication status: with other specified complication Diabetes mellitus medical terminologist insulin use: unspecified senior living insulin use status Diabetes mellitus type: other specified (including RODRI) Qualified Code(s): E13.69 - Other specified diabetes mellitus with other specified complication
--- NOTE | 2021-09-19 09:35 | Vascular Medicine ProgressNote ---
Date of Service September 19, 2021 Assessment & Plan (1) PAD (peripheral artery disease): Plan: --status post RLE tibial intervention 09/18/21 2. Large right heel ulceration 3. Prior right perez venous ulcers 4. Post left BKA due to osteo/necrotizing fasciitis 5. Acute on chronic systolic heart failure 6. Complex CADstatus post main LAD stenting post acute DE 7. Type 2 diabetes Patient doing well post right lower extremity tibial endovascular intervention yesterday. On exam has a strong DP pulse and foot appears perfused. No apparent left RESEARCH AND DEVELOPMENT DIRECTOR access site complications. Continue DAPT with ASA, clopidogrel. Continue high intensity statin. OK to discharge from vascular standpoint. Plan to followup in our office in 2 weeks with repeat noninvasive vascular testing at that time. Admission and Anticipated Discharge Date Admission Date: September 11, 2021 Subjective Patient is feeling well today and has no acute complaints. Underwent right lower extremity angiogram with angioplasty of peroneal and anterior tibial arteries yesterday without complication. Denies any significant leg pain. No issues at left RESEARCH AND DEVELOPMENT DIRECTOR access site. Physical Exam Physical Exam: General: Comfortable, no acute distress Eyes: Sclerae anicteric, extraocular movements intact Lungs: Clear to auscultation bilaterally Cardiac: Regular rate and rhythm, 2/6 holosystolic murmur at the apex Abdomen: Soft, nontender Psych: Alert orient x3, normal affect and mood Extremities/Vascular: -- 2+ radial bilaterally --2+ femoral bilaterally. Left RESEARCH AND DEVELOPMENT DIRECTOR access site without hematoma or ecchymosis --Post left BKA stump dressed --Right DP 2+. Ulcers dressed and not examined today Results & Data ([facility]) Vital Signs (Past 12 Hours) Vital Signs Temp Pulse Pulse Resp BP Pulse Ox 09/19/21 07:54 36.7 C 82 18 149/74 H 93 09/19/21 07:30 69 09/19/21 04:22 75 09/19/21 03:30 36.6 C 74 16 146/82 H 92 09/18/21 23:32 36.4 C L 73 18 153/81 H 94 PG Care Time/CCT Total # of Minutes Spent Total Time Spent with Patient: Total time spent is greater than 50% in coordination of care (as documented) at patient's floor/unit and/or counseling patient: Coding Level of Care Code 21166 Subseq Hosp Care Lvl 2 Diagnoses PAD (peripheral artery disease) I73.9
[2021-09-19] MEDS: ERTAPENEM SODIUM 1,000 MG in SODIUM CHLORIDE 0.9% 50 ML IV SCH (17:26)
[2021-09-19] MEDS: SENNA 8.6 MG TAB PO SCH (19:32)
[2021-09-19] MEDS: TAMSULOSIN HCL 0.4 MG CAP PO SCH (19:32)
[2021-09-19] MEDS: ATORVASTATIN 40 MG TAB PO SCH (19:33)
[2021-09-20 07:14] LABS: Hematocrit (blood only) 31.8 % (42-52); Hemoglobin 10.4 g/dL (14.0-18.0); Mean Corpuscular Hemoglobin 28.3 pg (25-34); Mean Corpuscular Hgb Conc 32.7 g/dL (32-36); Mean Corpuscular Volume 86.6 fL (80-100); Mean Platelet Volume 9.4 fL (7.4-10.4); Platelet Count 240 K/uL (130-400); RDW Coefficient of Variation 17.3 % (11.5-14.5); RDW Standard Deviation 54.7 fL (36.4-46.3); Red Blood Count 3.67 M/uL (4.7-6.1); White Blood Count 4.86 K/uL (4.8-10.8)
[2021-09-20 07:51] LABS: BUN Creatinine Ratio 22.8 (10-20); Calcium 8.5 mg/dl (8.5-10.1); Creatinine Clr Calc Pharmacy 89.5 ml/min; Est GFR (African American) 100.4 ml/min; Est GFR (Non-African American) 86.6 ml/min; Potassium 4.2 mmol/L (3.5-5.1)
[2021-09-20] MEDS: INSULIN ASPART 100 UNITS/ML 3 ML PEN SC SCH ×4 (08:09→20:14)
[2021-09-20] MEDS: INSULIN GLARGINE SOLOSTAR 100 UNITS/ML 3 ML PEN SC SCH (08:10)
[2021-09-20] MEDS: SPIRONOLACTONE 12.5 MG TAB PO SCH (08:11)
[2021-09-20] MEDS: METOPROLOL SUCC 50MG EXT REL TAB PO SCH (08:11)
[2021-09-20] MEDS: PANTOprazole 40 MG TAB PO SCH (08:11)
[2021-09-20] MEDS: MULTIVITAMIN TAB PO SCH (08:11)
[2021-09-20] MEDS: ASPIRIN 81 MG ECTAB PO SCH (08:11)
[2021-09-20] MEDS: FERROUS SULFATE 325 MG TAB PO SCH ×3 (08:11→17:18)
[2021-09-20] MEDS: CLOPIDOGREL BISULFATE 75 MG TAB PO SCH (08:11)
[2021-09-20] MEDS: MAGNESIUM OXIDE 400 MG TAB PO SCH ×2 (08:12→20:18)
[2021-09-20] MEDS: DOCUSATE SODIUM 100 MG CAP PO SCH ×2 (08:12→20:19)
[2021-09-20] MEDS: GABAPENTIN 100 MG CAP PO SCH ×2 (08:12→20:17)
--- NOTE | 2021-09-20 10:33 | Pharmacy Report ---
Pharmacy Glycemic Short Note 2 - Date of Service September 20, 2021 - Glycemic Short BSG Results (Last 24 hours): 09/19/21 09/19/21 09/19/21 10:49 16:08 20:14 Glucose POC Glucose 138 H 141 H 181 H 09/20/21 09/20/21 06:16 07:33 Glucose 132 H POC Glucose 139 H OUTPATIENT ANTIDIABETIC REGIMEN: * metformin 850 mg BID ASSESSMENT: 09/20 * Pt has received 7 units of insulin over the past 24hrs * 5 units of basal with Lantus * 2 units of bolus with NovoLog * BSGs [phone] mg/dl * BSGs well controlled with current regimen. PO intake/CHO consumed low yesterday therefore novolog coverage low. No changes needed at this time. 09/18/21 * Patient's BSGs yesterday were 12-98-07-107mg/dL. * Patient received 18 units of insulin (5 units of basal and 13 units of bolus). * Fasting BSG today was 97 mg/dL. * Patient NPO today so hold Lantus. Resume Lantus tomorrow. * BSGs stable continue Novolog. 09/17/21 * Patient's BSGs yesterday were 121- 230 - 128-74mg/dL. * Patient received 29 units of insulin (8 units of basal and 21 units of bolus). * Fasting BSG today was 56 mg/dL. * Since patient had hypoglycemic event with 8 units of Lantus, will reduce dose to 5 units daily. * After hyperglycemic at lunch, patient's BSGs trended down significantly. Loosen Novolog. 09/16/21 * Patient's BSGs yesterday were [phone]. Patient received 0 units of insulin. * Patient has diet ordered today but since fasting is stable will continue to hold basal. * Continue Novolog. 09/15/21 * Patient's BSGs yesterday were [phone]. Patient received 10 units of insulin (8 units of basal and 2 units of correctional). * Patient is NPO today. Hold basal insulin for now. * Continue Novolog. Background * Mr Coffman is a 71 y/o M with a PMH of T2DM on metformin who presents with an infection. * Patient's BSGs yesterday were [phone] and patient received 33 units of insulin (15 units of basal and 18 units of bolus). * Patient's fasting today was 56 and lunch was 85 mg/dL. * Per previous visit, Lantus 8 units daily produced excellent fastings. * Will plan for Lantus 8 units starting on 09/14 to allow for patient's BSGs to recover. Overnight checks to ensure patient does not suffer rebound hyperglycemia. * Novolog weight-based stress of 2. PLAN FOR INPATIENT GLYCEMIC CONTROL: * Hold outpatient oral diabetes medications * Basal insulin * Lantus 5 units daily * Bolus insulin * NovoLog per scale ACHS or Q6hrs while NPO * Goal Range: Low 110 mg/dL - High 140 mg/dL * Correction Factor: 30 mg/dL/unit * Nutritional / Prandial insulin per carb ratio of 1 unit per 10 grams CHO consumed PLAN FOR DISCHARGE: * Patient's HbA1C is well controlled and at goal. Can continue current regimen.
--- NOTE | 2021-09-20 12:56 | Heart Failure Progress Note ---
Date of Service September 20, 2021 Assessment & Plan (1) Ischemic cardiomyopathy: (2) Acute on chronic HFrEF (heart failure with reduced ejection fraction): (3) CAD (coronary artery disease), [place] coronary artery: Plan: (1) Acute on chronic HFrEF (heart failure with reduced ejection fraction): Plan: -He has responded well to aggressive diuresis. Kidney function and electrolytes stable. Would recommend Lasix 40 mg PO + Spironolactone 25 mg daily on discharge. -Kidney function and electrolytes stable. -echocardiogram unchanged from June 2021. EF 25-30%. - Daily weights, strict I&Os, low sodium diet. - Optimize GDMT as below. - Patient has been referred to the [facility] heart failure program by Dr. Vuong. Anticipate outpatient follow up within 7 days. (2) Ischemic cardiomyopathy: Plan: -ejection fraction of 25-30% on current echocardiogram. -Would recommend further optimization of his GDMT. Consider transitioning from Lisinopril to Entresto as an outpatient. Will require 36 hour wash out. Continue to titrate medications as BP and kidney function allows as an outpatient. Patient is discharging to a facility and follow up may be difficult with transportation. Would recommend further titration while in hospital- will increase Metoprolol to 100 mg daily. Continue Spironolactone. - Consider referral to EP for ICD if EF remains < 35% after at least 3 months of optimal therapy. (3) CAD (coronary artery disease), [place] coronary artery: Plan: -emergent distal LM and proximal LAD HERNANDEZ, January 2021. -He has been evaluated by the cardiovascular surgeons at [facility] and was advised to undergo bypass surgery based on his residual coronary disease and cardiomyopathy. However, the patient does not have an interest in proceeding with surgery. - No angina. -Continue ASA, statin, beta vince, Plavix (4) Hyperlipidemia LDL goal <70: Plan: -continue atorvastatin. Admission and Anticipated Discharge Date Admission Date: September 11, 2021 Subjective Patient reports he's feeling well today. He is on room air and breathing is consistent with his typical baseline. His edema has improved considerably. He denies chest pain, palpitations, or cough. He is unable to do daily weights at [facility] so his dry weight is unknown. He's negative 19 L for this admission. Weight is trending down appropriately. He has not had diuretics in 2 days due to his recent procedures. Kidney function and electrolytes stable. Physical Exam Physical Exam: Constitutional: Alert, oriented, in no acute distress HEENT: Head is atraumatic and normocephalic. EOMs intact. Sclera anicteric. Face is symmetric. No perioral cyanosis. Mucous membranes moist. Neck: Supple, no JVD Pulmonary: Normal respiratory effort, faint bibasilar crackles noted Cardiac: Regular rate and rhythm. Normal S1 and S2, no gallops, no rubs, no murmurs Extremities: 2+ radial pulses bilaterally. L BKA. 1+ pitting edema on the R. 1+ BUE pitting edema.. No cyanosis or clubbing. Abdomen: Normal bowel sounds, soft, non-tender, no abdominal mass palpated Skin: Normal skin color, turgor, and pigmentation, no rash, no skin lesions Neurological: Patient is awake, alert, and oriented. Pleasant and cooperative. Answers questions appropriately. Speech is clear. Results & Data ([facility]) Vital Signs (Past 12 Hours) Vital Signs Temp Pulse Resp BP Pulse Ox 09/20/21 10:46 97.9 F 71 17 129/77 96 09/20/21 07:48 97.5 F L 42 L 18 151/91 H 96 09/20/21 03:16 97.7 F 65 18 148/78 H 96 PG Care Time/CCT Total # of Minutes Spent Total Time Spent with Patient: Total time spent is greater than 50% in coordination of care (as documented) at patient's floor/unit and/or counseling patient: Heart Failure Data/Metrics Heart Failure Type: Systolic Evidenced Based Beta Vince Therapy Beta Vince Therapy: Yes Beta Vince Name: Metoprolol Succinate Beta Vince Target Therapy: Not at Target Therapy SURYA/ARB/ARNI Therapy SURYA/ARB/ARNI Therapy: Yes SURYA/ARB/ARNI Name: Lisinopril SURYA/ARB/ARNI Target Therapy: Not at Target Therapy Aldosterone Antagonist Therapy Aldosterone Antagonist Therapy: Yes (Spironolactone 12.5) Coding Level of Care Code 83407 Subseq Hosp Care Lvl 3 Diagnoses Ischemic cardiomyopathy I25.5 Acute on chronic HFrEF (heart failure with reduced ejection fraction) I50.23 CAD (coronary artery disease), [place] coronary artery I25.10
[2021-09-20] MEDS ORDERED: FUROSEMIDE 40 MG TAB PO ONE (12:57)
--- NOTE | 2021-09-20 17:14 | Hospitalist Progress Note ---
Date of Service September 20, 2021 Assessment & Plan (1) Acute on chronic HFrEF (heart failure with reduced ejection fraction): (2) Ischemic cardiomyopathy: (3) CAD (coronary artery disease), [place] coronary artery: (4) Diabetes mellitus: (5) HTN (hypertension): (6) Hypomagnesemia: (7) Surgical wound, non healing: (8) Diabetic ulcer of right heel: (9) Hyperlipidemia LDL goal <70: (10) Carotid stenosis: (11) History of CVA with residual deficit: Plan: Patient is a 71 yo M w/CAD HERNANDEZ x3 to distal main and LAD 01/2021, chronic HFrEF (EF 30 to 35%), moderate MR, hx of R carotid artery stenosis s/p stent placement, history of PAD and dry gangrene to left great toe and 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 Acute on chronic HFrEF Ischemic cardiomyopathy CAD S/P HERNANDEZ x3 01/2021, recommendation was CABG and patient declined EF: 20-25% Previously evaluated at [facility] for bypass surgery, patient refused at that time Appreciate Cardiology Input Received IV diuretics Strict I's and O's, daily weights Continue Lasix 40 mg daily, spironolactone 25 mg daily Needs follow-up with cardiology upon discharge in 1 week Continue low-sodium diet, fluid restriction Continue ASA, Plavix, statin, metoprolol Nonhealing wound of left BKA stump Blood culture negative to date H/O MRSA Appreciate Orthopedics Input 09/15 Now s/p Irrigation and Debridement Left Below Knee Amputation Wound 5.5cm x 2.4cm x 0.3 cm including skin, subcutaneous tissue and periwound slough, application 5.5 cm x 2.4 cm x 0.3 cm [employer] Allograft distal medial below- knee amputation stump (Left) - Bright English, DO Wound culture from the OR : Sep 15, positive for Enterobacter cloacae Started on ertapenem on September 17, vancomycin was discontinued, further discussed with ID Per ID Plan to continue Ertapenem 1000 mg daily until September 30, 2021 Needs weekly CBC BMP, wound care and ID follow-up as outpatient Right heel wound Pt follows with wound care clinic, Maria E PEREZ Discussed with Maria E, who recommended to obtain MRI of heel (MRI shows edema, cellulitis, but no evidence of osteomyelitis, as below) R ankle MRI: Diffuse subcutaneous edema suggestive of cellulitis, lymphedema or venous stasis. Muscle atrophy with extensive intramuscular edema is suggestive of chronic denervation changes. No acute fracture, significant marrow edema or evidence of osteomyelitis. 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 English 06/2021 Follows w/ wound clinic and Dr. Wilkerson for PAD Arterial Doppler for right lower extremity: Elevated peak systolic velocities within the anterior tibial artery are compatible with hemodynamically significant stenosis. No arterial occlusion. Normal triphasic waveforms above the level of the knee. Abnormal toe brachial index of 0.23. S/P vasc. intervention (09/18) w/ Dr. Wilkerson Right lower extremity --widely patent iliacs, COMPOUND SPECIALIST, SFA/popliteal arteries. 95% proximal/mid BRITTANIE, diffuse up to 99% proximal peroneal, diffuse DRIVER COURIER disease prior to subtotal mid occlusion. Distal DRIVER COURIER fills via collaterals from peroneal. Left lower extremity --widely patent iliacs, COMPOUND SPECIALIST. Successful angioplasty of proximal to mid anterior tibial artery with 3.5 balloon. Successful angioplasty of proximal to mid peroneal artery with 3.0 balloon. Final result: Brisk two-vessel runoff to the foot with improved collateral flow to distal DRIVER COURIER and heel ulcer bed. --Continue long-term DAPT with aspirin, clopidogrel Follow-up non-invasive vascular testing in 1-2 weeks. DM II HbA1C:6.5 Hold Metformin Lantus/NovoLog per protocol Hypertension On metoprolol Resume lisinopril tmw Hypomagnesemia Replace as needed Hyperlipidemia Continue statin H/O CVA with residual left-sided weakness Right internal carotid artery stenosis Continue ASA and statin S/P stent to right internal carotid artery DVT px: Resume Lovenox SQ if OK with surgery Code Status FULL CODE Admission and Anticipated Discharge Date Admission Date: September 11, 2021 Subjective Patient is seen and examined at bedside States feeling well today Offers no new complaints Denies any pain at surgical site Also denies any chest pain, shortness of breath, dizziness, nausea, abdominal pain Review of Systems Review of Systems: All systems reviewed & are unremarkable except as noted in Subjective Physical Exam Physical Exam: Physical Exam: Vitals signs as noted above General Appearance:Moderately built and nourished, no apparent distress Head: normocephalic, Atraumatic Eyes: normal inspection, EOMI Neck: supple, Trachea midline Respiratory/Chest: Decreased breath sounds, CTA, No accessory muscle use Cardiovascular: S1, S2, No murmur Abdomen/GI:Soft, Non tender, Bowel sounds present Extremities/Musculoskeletal:normal inspection, left BKA in dressing, Right Heal in dressing, +wounds, LE edema Neurologic/Psych:AAOX3, grossly no focal neurological deficits Skin: normal color, warm Results & Data Results & Data ([facility]) Vital Signs (Past 12 Hours) Vital Signs Temp Pulse Resp BP Pulse Ox 09/20/21 15:44 36.5 C 64 19 148/78 H 97 09/20/21 10:46 36.6 C 71 17 129/77 96 09/20/21 07:48 36.4 C L 42 L 18 151/91 H 96 Laboratory Results Short CBC 09/20/21 Range/Units 06:16 WBC 4.86 (4.8-10.8) K/uL Hgb 10.4 L (14.0-18.0) g/dL Hct 31.8 L (42-52) % Plt Count 240 (130-400) K/uL BMP 09/20/21 06:16 Sodium 136 Potassium 4.2 Chloride 104 Carbon Dioxide 27 BUN 20 H Creatinine 0.89 Glucose 132 H Calcium 8.5 (1) Diabetes mellitus Diabetes mellitus complication status: with other specified complication Diabetes mellitus terminologist insulin use: unspecified intermediate insulin use status Diabetes mellitus type: other specified (including RODRI) Qualified Code(s): E13.69 - Other specified diabetes mellitus with other specified complication (2) Carotid stenosis Laterality: right Qualified Code(s): I65.21 - Occlusion and stenosis of right carotid artery
[2021-09-20] MEDS: ERTAPENEM SODIUM 1,000 MG in SODIUM CHLORIDE 0.9% 50 ML IV SCH (17:16)
[2021-09-20] MEDS: SENNA 8.6 MG TAB PO SCH (20:17)
[2021-09-20] MEDS: TAMSULOSIN HCL 0.4 MG CAP PO SCH (20:17)
[2021-09-20] MEDS: ATORVASTATIN 40 MG TAB PO SCH (20:18)
[2021-09-21 06:26] LABS: BUN Creatinine Ratio 25.4 (10-20); Calcium 8.1 mg/dl (8.5-10.1); Creatinine Clr Calc Pharmacy 93.2 ml/min; Est GFR (African American) 102.3 ml/min; Est GFR (Non-African American) 88.3 ml/min; Potassium 3.9 mmol/L (3.5-5.1)
[2021-09-21] MEDS: DOCUSATE SODIUM 100 MG CAP PO SCH (07:56)
[2021-09-21] MEDS: INSULIN ASPART 100 UNITS/ML 3 ML PEN SC SCH ×2 (07:56→12:21)
[2021-09-21] MEDS: MULTIVITAMIN TAB PO SCH (07:57)
[2021-09-21] MEDS: ASPIRIN 81 MG ECTAB PO SCH (07:57)
[2021-09-21] MEDS: CLOPIDOGREL BISULFATE 75 MG TAB PO SCH (07:57)
[2021-09-21] MEDS: FERROUS SULFATE 325 MG TAB PO SCH ×2 (07:57→12:22)
[2021-09-21] MEDS: SPIRONOLACTONE 12.5 MG TAB PO SCH (07:57)
[2021-09-21] MEDS: PANTOprazole 40 MG TAB PO SCH (07:57)
[2021-09-21] MEDS: INSULIN GLARGINE SOLOSTAR 100 UNITS/ML 3 ML PEN SC SCH (07:58)
[2021-09-21] MEDS: GABAPENTIN 100 MG CAP PO SCH (07:58)
[2021-09-21] MEDS: MAGNESIUM OXIDE 400 MG TAB PO SCH (07:59)
[2021-09-21] MEDS ORDERED: FUROSEMIDE 40 MG TAB PO SCH (09:00)
[2021-09-21] MEDS ORDERED: METOPROLOL SUCC 50MG EXT REL TAB PO SCH (09:00)
[2021-09-21] MEDS ORDERED: lisinopril 5 MG TAB PO SCH (09:00)
--- NOTE | 2021-09-21 11:02 | Pharmacy Report ---
Pharmacy Glycemic Sign Off Nt - Date of Service September 21, 2021 - Assessment & Plan ASSESSMENT: * Pharmacy was consulted by Dr Jha on 09/13/21 for glycemic control and to write orders per [facility] inpatient glycemic control protocol. * Major changes made by pharmacy to antidiabetic regimen include: * Holding oral agents (metformin) and using SQ basal bolus for inpatient use only * Patient has been receiving/requiring ~20 units of insulin per day for adequate glycemic control * BSGs ranging 106-175 mg/dl * Regimen has only required minor adjustments over the past 48hrs to achieve this level of control * Do not anticipate further changes in patient status that would quickly deteriorate glycemic control (i.e. patient to be NPO for upcoming procedure, steroids tapering, starting tube feedings, etc). * Please see recommendations for outpatient antidiabetic regimen below. PLAN FOR INPATIENT GLYCEMIC CONTROL: No changes needed to current regimen. * Continue basal insulin with Lantus 5 units SQ daily in AM * Continue NovoLog per scale ACHS/Q6hrs while NPO * Goal range = 110 140 mg/dl * CF = 30 mg/dl/unit * CR = 1 unit for ever 10 g CHO consumed * Pharmacy is signing off of glycemic consult and will no longer be making adjustments to inpatient regimen. Please feel free to re-consult if needed. Thank you. DISCHARGE RECOMMENDATIONS: * A1c 6.5 % on 09/12/21 * No changes needed at DC. Pt can dc insulin and resume metformin
[2021-09-21] MEDS: ERTAPENEM SODIUM 1,000 MG in SODIUM CHLORIDE 0.9% 50 ML IV SCH (12:22)
--- NOTE | 2021-09-21 12:50 | Hospitalist Progress Note ---
Date of Service September 21, 2021 Assessment & Plan (1) Acute on chronic HFrEF (heart failure with reduced ejection fraction): (2) Ischemic cardiomyopathy: (3) CAD (coronary artery disease), [place] coronary artery: (4) Diabetes mellitus: (5) HTN (hypertension): (6) Hypomagnesemia: (7) Surgical wound, non healing: (8) Diabetic ulcer of right heel: (9) Hyperlipidemia LDL goal <70: (10) Carotid stenosis: (11) History of CVA with residual deficit: Plan: Patient is a 71 yo M w/CAD HERNANDEZ x3 to distal main and LAD 01/2021, chronic HFrEF (EF 30 to 35%), moderate MR, hx of R carotid artery stenosis s/p stent placement, history of PAD and dry gangrene to left great toe and 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 Acute on chronic HFrEF Ischemic cardiomyopathy CAD S/P HERNANDEZ x3 01/2021, recommendation was CABG and patient declined EF: 20-25% Previously evaluated at [facility] for bypass surgery, patient refused at that time Appreciate Cardiology Input Received IV diuretics Strict I's and O's, daily weights Continue Lasix 40 mg daily, spironolactone 25 mg daily Needs follow-up with cardiology upon discharge in 1 week Continue low-sodium diet, fluid restriction Continue ASA, Plavix, statin, metoprolol Started lisinopril [facility] Needs follow-up with cardiology upon discharge in 1 week Nonhealing wound of left BKA stump Blood culture negative to date H/O MRSA Appreciate Orthopedics Input 09/15 Now s/p Irrigation and Debridement Left Below Knee Amputation Wound 5.5cm x 2.4cm x 0.3 cm including skin, subcutaneous tissue and periwound slough, application 5.5 cm x 2.4 cm x 0.3 cm [employer] Allograft distal medial below- knee amputation stump (Left) - Bright English, Wound culture from the OR : Sep 15, positive for Enterobacter cloacae Started on ertapenem on September 17, vancomycin was discontinued, further discussed with ID Per ID Plan to continue Ertapenem 1000 mg daily until September 30, 2021 Needs weekly CBC BMP, wound care and ID follow-up as outpatient Continue current management Right heel wound Pt follows with wound care clinic, Maria E PEREZ Discussed with Maria E, who recommended to obtain MRI of heel (MRI shows edema, cellulitis, but no evidence of osteomyelitis, as below) R ankle MRI: Diffuse subcutaneous edema suggestive of cellulitis, lymphedema or venous stasis. Muscle atrophy with extensive intramuscular edema is suggestive of chronic denervation changes. No acute fracture, significant marrow edema or evidence of osteomyelitis. 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 English 06/2021 Follows w/ wound clinic and Dr. Wilkerson for PAD Arterial Doppler for right lower extremity: Elevated peak systolic velocities within the anterior tibial artery are compatible with hemodynamically significant stenosis. No arterial occlusion. Normal triphasic waveforms above the level of the knee. Abnormal toe brachial index of 0.23. S/P vasc. intervention (09/18) w/ Dr. Wilkerson Right lower extremity --widely patent iliacs, COUNTER HELP, SFA/popliteal arteries. 95% proximal/mid BRITTANIE, diffuse up to 99% proximal peroneal, diffuse INSIDE TESTER disease prior to subtotal mid occlusion. Distal INSIDE TESTER fills via collaterals from peroneal. Left lower extremity --widely patent iliacs, COUNTER HELP. Successful angioplasty of proximal to mid anterior tibial artery with 3.5 balloon. Successful angioplasty of proximal to mid peroneal artery with 3.0 balloon. Final result: Brisk two-vessel runoff to the foot with improved collateral flow to distal INSIDE TESTER and heel ulcer bed. --Continue long-term DAPT with aspirin, clopidogrel Follow-up non-invasive vascular testing in 1-2 weeks. DM II HbA1C:6.5 Hold Metformin Lantus/NovoLog per protocol Hypertension On metoprolol, isinopril Hypomagnesemia Replace as needed Hyperlipidemia Continue statin H/O CVA with residual left-sided weakness Right internal carotid artery stenosis Continue ASA and statin S/P stent to right internal carotid artery Code Status FULL CODE Admission and Anticipated Discharge Date Admission Date: September 11, 2021 Subjective Patient is seen and examined at bedside No new complaints Denies any chest pain, shortness of breath, dizziness, nausea, abdominal pain, leg pain Plan to be discharged today Review of Systems Review of Systems: All systems reviewed & are unremarkable except as noted in Subjective Physical Exam Physical Exam: Physical Exam: Vitals signs as noted above General Appearance:Moderately built and nourished, no apparent distress Head: normocephalic, Atraumatic Eyes: normal inspection, EOMI Neck: supple, Trachea midline Respiratory/Chest: Decreased breath sounds, CTA, No accessory muscle use Cardiovascular: S1, S2, No murmur Abdomen/GI:Soft, Non tender, Bowel sounds present Extremities/Musculoskeletal:normal inspection, left BKA in dressing, Right Heal in dressing, +wounds, LE edema Neurologic/Psych:AAOX3, grossly no focal neurological deficits Skin: normal color, warm Results & Data Results & Data ([facility]) Vital Signs (Past 12 Hours) Vital Signs Temp Pulse Resp BP Pulse Ox 09/21/21 07:13 36.7 C 70 18 146/75 H 97 09/21/21 04:18 36.4 C L 66 17 134/79 98 Laboratory Results [facility] 09/21/21 05:28 Sodium 139 Potassium 3.9 Chloride 107 Carbon Dioxide 28 BUN 22 H Creatinine 0.85 Glucose 107 H Calcium 8.1 L (1) Diabetes mellitus Diabetes mellitus complication status: with other specified complication Diabetes mellitus buttermaker helper insulin use: unspecified buttermaker helper insulin use status Diabetes mellitus type: other specified (including RODRI) Qualified Code(s): E13.69 - Other specified diabetes mellitus with other specified complication (2) Carotid stenosis Laterality: right Qualified Code(s): I65.21 - Occlusion and stenosis of right carotid artery
--- NOTE | 2021-09-21 13:01 | Discharge Summary ---
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 He currently resides at [facility]. He has noted himself getting increasingly short of breath and this morning he was orthopneic. He also notes left upper extremity swelling which is new per pt, b/l lower ext swelling and abdominal distension. He does not weigh himself on a regular basis secondary to his BKA and limited mobility therefore he is unsure if he gained weight. He denies any fever, chills, sweats, lightheadedness, dizziness, chest pain, PND, nausea, vomiting, abdominal pain, last bowel movement was yesterday. He does complain of a dry cough which has been present for 2-3 days. In ED he underwent chest x-ray which reviewed bilateral pleural effusions right greater than left, elevated proBNP and significant hypertension. Patient was felt to be suffering from acute decompensation of HFrEF in the setting of ischemic cardiomyopathy. He received 60 mg of IV Lasix and has had 400 mL output thus far. His mag was low and this was replaced. His brother is at bedside. 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 He declines CABG intervention in regards to his CAD. Admission Exam Per Admitting Provider Physical Exam Physical Exam: Constitutional: WD/WN, chronically ill appearing male, vitals as above, NAD, sitting up in bed, pleasant, conversing easily Head: Normocephalic, Atraumatic Eyes: PERRL, conjunctivae normal, anicteric sclerae ENMT: external ear and nose normal, oropharynx normal Neck: trachea midline, no thyromegaly normal visual inspection Respiratory: normal respiratory effort, lungs clear to auscultation, no wheeze, rales, rhonchi. Normal insp/exp effort, no accessory muscle use Cardiovascular: RRR, no murmur, +3 lower ext pitting edema, L BKA with dressing in place, edema extending to proximal thigh and abd wall, LUE swelling Vessels: no JVD or carotid bruit Chest: normal inspection of chest Abdomen: obese abd, normal bowel sounds, soft, nontender, no hepatosplenomegaly Musculoskeletal: no cyanosis or clubbing, extremities motor strength 5/5, L BKA Skin: no rashes, warm and dry normal turgor Neurologic: PERRL, EOMI, accommodation nl, no face palsy, no dysarthria CN's II-XI intact bilaterally and moves all extremities Psychiatric: A+Ox3, euthymic affect Lymphatic: no cervical or axillary lymphadenopathy : clear yellow urine noted in urinal Principal Diagnosis Acute on chronic HFrEF Nonhealing wound of left BKA stump Right heel wound PAD/PVD DM II Discharge Data Allergies Allergy/AdvReac Type Severity Reaction Status Date / Time No Known Allergies Allergy Verified 09/11/21 11:13 Consultations 09/11/21 13:23 ED Decision to Admit Stat 09/11/21 14:13 Consult Cardiology Routine 09/12/21 12:02 Consult Orthopedic Surgery Routine 09/16/21 10:09 Consult Wound Care Provider Routine 09/17/21 15:19 Consult Infectious Diseases Routine Procedures Performed Operation Date: 09/15/21 07:00 Actual Procedures p Irrigation and Debridement Left Below Knee Amputation Wound, Theraskin Graft(Left) - Bright English DO Operation Date: 09/18/21 11:00 Actual Procedures p Angio Extremity Unilateral - Jayesh Wilkerson MD p Tibial Peroneal Balloon - Jayesh Wilkerson MD s Tibioperoneal Balloon Each Additional - Jayesh Wilkerson MD s Ultrasound Vascular Access - Jayesh Wilkerson MD s Placement Art Occlusive Device - Jayesh Wilkerson MD Ordered Studies 09/11/21 14:23 US venous doppler UE LT Stat 09/11/21 15:26 US venous doppler LE BI Routine 09/14/21 08:01 US arterial duplex LE RT Routine 09/14/21 11:43 MR ankle RT wo con Routine 09/18/21 07:08 CL Cath Imgs for PACS use only Routine Hospital Course (1) Acute on chronic HFrEF (heart failure with reduced ejection fraction): (2) Ischemic cardiomyopathy: (3) CAD (coronary artery disease), elim ira coronary artery: (4) Diabetes mellitus: (5) HTN (hypertension): (6) Hypomagnesemia: (7) Surgical wound, non healing: (8) Diabetic ulcer of right heel: (9) Hyperlipidemia LDL goal <70: (10) Carotid stenosis: (11) History of CVA with residual deficit: Patient is a 71 yo M w/CAD HERNANDEZ x3 to distal main and LAD 01/2021, chronic HFrEF (EF 30 to 35%), moderate MR, hx of R carotid artery stenosis s/p stent placement, history of PAD and dry gangrene to left great toe and 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 Acute on chronic HFrEF Ischemic cardiomyopathy CAD S/P HERNANDEZ x3 01/2021, recommendation was CABG and patient declined EF: 20-25% Previously evaluated at [facility] for bypass surgery, patient refused at that time Appreciate Cardiology Input Received IV diuretics Strict I's and O's, daily weights Continue Lasix 40 mg daily, spironolactone 25 mg daily Needs follow-up with cardiology upon discharge in 1 week Continue low-sodium diet, fluid restriction Continue ASA, Plavix, statin, metoprolol Started lisinopril Plan to be transition to Entresto as outpatient Needs follow-up with cardiology upon discharge in 1 week Nonhealing wound of left BKA stump Blood culture negative to date H/O MRSA Appreciate Orthopedics Input 09/15 Now s/p Irrigation and Debridement Left Below Knee Amputation Wound 5.5cm x 2.4cm x 0.3 cm including skin, subcutaneous tissue and periwound slough, application 5.5 cm x 2.4 cm x 0.3 cm Theraskin Allograft distal medial below- knee amputation stump (Left) - Bright English, DO Wound culture from the OR : Sep 15, positive for Enterobacter cloacae Started on ertapenem on September 17, vancomycin was discontinued, further discussed with ID Per ID Plan to continue Ertapenem 1000 mg daily until September 30, 2021 Needs weekly CBC BMP, wound care and ID follow-up as outpatient Continue current management Right heel wound Pt follows with wound care clinic, Maria E PEREZ Discussed with Maria E, who recommended to obtain MRI of heel (MRI shows edema, cellulitis, but no evidence of osteomyelitis, as below) R ankle MRI: Diffuse subcutaneous edema suggestive of cellulitis, lymphedema or venous stasis. Muscle atrophy with extensive intramuscular edema is suggestive of chronic denervation changes. No acute fracture, significant marrow edema or evidence of osteomyelitis. 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 English 06/2021 Follows w/ wound clinic and Dr. Wilkerson for PAD Arterial Doppler for right lower extremity: Elevated peak systolic velocities within the anterior tibial artery are compatible with hemodynamically significant stenosis. No arterial occlusion. Normal triphasic waveforms above the level of the knee. Abnormal toe brachial index of 0.23. S/P vasc. intervention (09/18) w/ Dr. Wilkerson Right lower extremity --widely patent iliacs, CONTINUOUS CHURN BUTTERMAKER, SFA/popliteal arteries. 95% proximal/mid BRITTANIE, diffuse up to 99% proximal peroneal, diffuse MEAT SOAKER disease prior to subtotal mid occlusion. Distal MEAT SOAKER fills via collaterals from peroneal. Left lower extremity --widely patent iliacs, CONTINUOUS CHURN BUTTERMAKER. Successful angioplasty of proximal to mid anterior tibial artery with 3.5 balloon. Successful angioplasty of proximal to mid peroneal artery with 3.0 balloon. Final result: Brisk two-vessel runoff to the foot with improved collateral flow to distal MEAT SOAKER and heel ulcer bed. --Continue long-term DAPT with aspirin, clopidogrel Follow-up non-invasive vascular testing in 1-2 weeks. DM II HbA1C:6.5 Hold Metformin Lantus/NovoLog per protocol Hypertension On metoprolol, isinopril Hypomagnesemia Replace as needed Hyperlipidemia Continue statin H/O CVA with residual left-sided weakness Right internal carotid artery stenosis Continue ASA and statin S/P stent to right internal carotid artery Code Status FULL CODE Total Time Total Time Spent Total Time Spent (In Minutes): 45 minutes Discharge Plan Discharge Items Patient Disposition: Personal Longterm Reason For Visit: ACUTE CHF Discharge Diagnosis: Acute on chronic HFrEF Nonhealing wound of left BKA stump Right heel wound PAD/PVD DM II Activity: Per Instructions section Exercise/Sports: Wait until after follow-up appointment Non-emergency contact: Primary Care Provider and Hand Cloth Cutter Call non-emergency contact if: you have any medication questions, your symptoms worsen, your pain is concerning for you, your wound has increased redness, your wound has increased drainage and your wound pain has increased Follow-up/Referrals: [facility] [Other] - 09/28/21 11:00 am ([address], [address] [place] [address] ) Jayesh Wilkerson MD [Physician] - ([facility] [address] [facility] [id number] [address] Wilkerson' nurse will call you with an appointment date/time) Stanislaw aPz PA-C [Physician Analytics Consultant] - 09/28/21 11:15 am ([facility] [address] [place] [address], [place] [address] ) Frantz Andrews MD [Physician] - (Date & Time 10/24/2021 11:00 AM Provider Frantz Andrews [place] [address] ) [facility] [Primary Care Provider] - Massiel Millan MD [Resident] - 09/22/21 2:50 pm ([facility] [address] [place] [address] [id number], [place] [address] ) Diet: Heart Healthy and Low Sodium (2gm) Fluids: 1800ml (7 cups) Addtl Attending Provider Instructions: Follow-up with your primary care physician Dr. Millan on September 22 as scheduled Follow-up with your vascular surgeon Dr. Wilkerson in 1 to 2 weeks as advised Follow-up with your industrial plant custodian [facility] in 1 week as advised Follow-up with your orthopedic surgeon in 1 week Complete IV Ertapenem 1000 mg daily until September 30, 2021 as recommended by your infectious disease physician. Seek immediate medical attention if your symptoms reoccur or worsen Please take all medications as instructed on discharge list below. Please call if you have any questions or problems. You can reach a [facility] ospitalist on duty at [facility] 24 hours a day by calling [phone] Pending Studies at Discharge: No Stand-Alone Forms: My [facility], Smoking Cessation Skilled Items Patient informed of condition?: Yes DNR: No Discharge Level of Care: Other Communicable Disease: No Discharge Prognosis: Stable Lines: Peripheral IV Urinary Catheter: No Medications and DC Order Prescriptions: New furosemide 40 mg Tablet 40 mg PO QAM Qty: 30 RF: 0 polyethylene glycol 3350 [Miralax] 17 gram Powder In Packet 17 g PO DAILY PRN (Reason: constipation) Qty: 30 RF: 0 spironolactone 25 mg Tablet 12.5 mg PO DAILY 30 Days Qty: 15 RF: 0 docusate sodium 100 mg Capsule 100 mg PO BID PRN (Reason: Constipation) Qty: 60 RF: 0 multivitamin with folic acid [Daily-Cesar (with folic acid)] 400 mcg Tablet 1 tab PO QAM Qty: 30 RF: 0 Continued atorvastatin [Lipitor] 80 mg tablet 80 mg PO HS RF: 0 clopidogrel [Plavix] 75 mg tablet 75 mg PO QAM RF: 0 aspirin 81 mg Tablet,Delayed Release (Dr/Ec) 81 mg PO QAM RF: 0 folic acid-B [id number] 3-70-15 mg-mcg-mg Tablet 1 tab PO QAM RF: 0 tamsulosin 0.4 mg Capsule 0.4 mg PO HS 30 Days Qty: 30 RF: 3 lisinopril [Zestril] 5 mg Tablet 5 mg PO QAM 30 Days Qty: 30 RF: 3 gabapentin 100 mg Capsule 200 mg PO BID 30 Days Qty: 120 RF: 1 metformin 850 mg Tablet 850 mg PO BID RF: 0 pantoprazole 40 mg Tablet,Delayed Release (Dr/Ec) 40 mg PO DAILY RF: 0 ferrous sulfate 325 mg (65 mg iron) Tablet 325 mg PO TID RF: 0 Changed metoprolol succinate 50 mg tablet extended release 24 hr 100 mg PO DAILY Qty: 60 RF: 0 Discharge Orders: Discharge Order (Routine); Ordered 09/21/21 Ordered By: Paul Prado/Other Patient Handouts: A1C, Managing Type 2 Diabetes Admission Data Admit Date/Time: 09/11/21 13:42 Attending Provider: Paul Loco Admit Provider: Paul Loco Primary Care Provider: STATE PARAMJIT MACIEL Other Providers: Paul Loco ; Eddie Freire ; Bright English ; Maria E Villafuerte ; Yosef Meyer ; Frantz Andrews ; Moise Sibley I. ; Miguel Duffy II ; Ruba Eduardo ; Aaron Turner ; Shiva Arana
== END 2021-09-21 13:50 | disposition home or self-care (01) | DRG 252 ==
LOC: ED 10:32 → SUATTDRO 13:42 → 2S 13:42
PROC: CLB.AEU (2021-09-18 11:00)

== ENCOUNTER 2022-02-10 05:58 | Inpatient (IN) ==
[2022-02-10 06:34] LABS: Hematocrit (blood only) 16.1 % (42-52); Hemoglobin 5.2 g/dL (14.0-18.0); Mean Corpuscular Hemoglobin 28.9 pg (25-34); Mean Corpuscular Hgb Conc 32.3 g/dL (32-36); Mean Corpuscular Volume 89.4 fL (80-100); Mean Platelet Volume 9.4 fL (7.4-10.4); Platelet Count 212 K/uL (130-400); RDW Coefficient of Variation 17.9 % (11.5-14.5); RDW Standard Deviation 58.4 fL (36.4-46.3); White Blood Count 6.47 K/uL (4.8-10.8)
[2022-02-10 06:41] LABS: INR 1.5 (0.9-1.1); Partial Thromboplastin Time 28.3 Seconds (21.0-31.0); Prothrombin Time 15.7 Seconds (9.0-12.0)
[2022-02-10] MEDS ORDERED: SODIUM CHLORIDE 0.9% 250 ML IV PRN ×2 (06:41→07:35)
--- NOTE | 2022-02-10 06:47 | Emergency Department Note ---
Impression & Plan Acute GI bleeding, Symptomatic anemia, Acute hypotension ED Provider Note NAME: MELLY HURTADO AGE: 71 SEX: M : 1950 ARRIVES VIA: Ambulance INFORMANT: Patient ED PROVIDER(S): Billy Mcclure DO CHIEF COMPLAINT: GI bleed HPI: Patient is a 71-year-old male with a past medical history of REGGIE, DKA, NSTEMI, CAD, PAD, ischemic cardiomyopathy, CVA who presents to the ER for bright red blood per rectum. This started yesterday and significant worsened this mo rning when they noticed his sheets were soaked at [facility]. He does feel very weak. He denies any headache or change in vision. No chest pain or shortness of breath. No belly pain, nausea, vomiting, or diarrhea. No dysuria, urgency, or frequency. No other exacerbating or remitting factors. ROS: See above HPI for pertinent positives & negatives. A total of 10 systems reviewed and were otherwise negative. PAST MEDICAL HISTORY:See Below PAST SURGICAL HISTORY:See Below FAMILY HISTORY:See Below SOCIAL HISTORY:See Below HOME MEDICATIONS:See Below ALLERGIES:See Below VITALS:See Below PHYSICAL EXAMINATION: GENERAL: Sitting up in bed, alert, pale, chronically ill-appearing, disheveled EYE EXAM: normal conjunctiva. OROPHARYNX: dry mucus membranes NECK: supple, no nuchal rigidity, no adenopathy, non-tender LUNGS: Clear to auscultation. Normal chest wall mechanics HEART: no murmurs, S1 normal and S2 normal ABDOMEN: abdomen soft, non-tender, normo-active bowel sounds, no masses, no re bound or guarding. UPPER EXTREMITIES: upper extremities are grossly normal. LOWER EXTREMITIES: Right lower extremity amputation NEURO EXAM: Awake, very lethargic and ill-appearing, slow to respond to questioning but oriented to person and year cranial nerves II-XII grossly intact, normal speech, no gross weakness of arms, no gross weakness of legs. MEDICAL DECISION MAKING: Patient is a 71-year-old male with extensive past medical history the presents the ER for bright red blood per rectum. IV was established blood work was obtained. Labs show anemia at 5.2. INR was slightly up at 1.5. Patient is on Plavix. BMP with metabolic acidosis and a slightly elevated potassium of 5.2. T bili up at 1.7. LFTs are unremarkable. Patient was typed and crossed. Loli gupta was given 2 units of uncrossed blood. Systolic pressures came up slightly to low 100s. Consulted gastroenterology Dr. Miller who recommended as this patient is on Plavix he will not be scoped today. Recommend PPI. Patient was placed on Protonix drip and bolus. Patient received 2 units pressure back with systolics consistently in the 80s. Systolics trended up to low 100s. Will transfuse third PRBC over 1 hour. Platelets were ordered. Discussed with lab and they will hold 2 units at all times. Discussed with brother who believes that he was a want to be a full code unless return to baseline is not obtainable. CT abdomen pelvis showed ascites but no acute pathology other than some bowel wall edema and rectal thickening. Patient's pressures plateaued in the low 100s after 2 and half units of PRBCs. Patient was admitted to the hospitalist for further work-up. Triage Nursing notes reviewed. Limited review of prior medical records performed Vital Signs: reviewed and remarkable for hypotension Differential diagnosis: Diverticulosis, AVM, coagulopathy, colitis, inflammatory bowel disease, malignancy, Niya-Jasso tear, esophagitis, peptic ulcer disease, variceal bleed, gastritis, epistaxis, fissure, hemorrhoids, as well as other pathologies. ER treatment provided: See below Diagnostics interpreted by me: ECG: Sinus rhythm rate 85 Left axis No PVCs QTC 528 Cardiac Monitoring: An order was placed for continuous cardiac monitoring. The monitor shows a rate of 82 with sinus rhythm. Laboratory studies: As stated above and show below. Imaging studies: CT abdomen pelvis as discussed above Consultation(s): Discussed with Dr. Miller as stated above in MDM. No scope. Recommends PPI Discussed with Will from [facility] service Procedures: [none] Critical Care: I have personally spent 75 minutes of critical care time in the direct management of this patient. This includes bedside care, interpretation of diagnostic studies, and testing, discussion with consultants, patient, and family members, and other required patient management activities. This 75 minutes is in excess of all separately billable procedures. Past Med/Surg History Medical History Anemia CAD (coronary artery disease), [place] coronary artery 02/12/2021: PCI with HERNANDEZ to the distal left main and proximal LAD. Additional distal LAD disease. Large non dominant left circumflex with moderate diffuse disease. Long subtotal occlusion of the distal vessel. Large dominant RCA with focal 70-80% lesion in the mid vessel. Diffuse [id number]-[id number] distal disease. Diabetes mellitus Elevated troponin I level Family history non-contributory History of CVA with residual deficit History of left below knee amputation Hyperlipidemia LDL goal <70 Ischemic cardiomyopathy LBBB (left bundle branch block) Mitral regurgitation Paroxysmal atrial fibrillation Peripheral vascular disease Symptomatic anemia Surgical History History of coronary artery stent placement History of right common carotid artery stent placement Status post below-knee amputation of left lower extremity Dr English 06/2021 Family History Other Diabetes Social History Smoking Status: Unknown if ever smoked Hx Alcohol Use: Yes Alcohol type: beer Alcohol Intake Frequency: Monthly or Less Hx Substance Use: No Preferred Language: Guatemalan Communication Ability: Effective Visual Impairment: Limited Hearing Ability: Normal 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 Beliefs That Will Affect Care: None marital status: Single Current Living Situation: Alone and Personal Care Facility Current Living Situation Comment: [facility] current occupational status: retired Feels Safe at Home: Yes Assistive Devices: None Allergies Allergies Allergy/AdvReac Type Severity Reaction Status Date / Time No Known Allergies Allergy Verified 01/23/22 10:12 Home Meds Home Medications Medication Instructions Recorded Confirmed aspirin 81 mg tablet,delayed 81 mg PO QAM 06/09/21 01/23/22 release atorvastatin 80 mg tablet (Lipitor) 80 mg PO HS 06/09/21 01/23/22 clopidogrel 75 mg tablet (Plavix) 75 mg PO QAM 06/09/21 01/23/22 folic acid 3 mg-vit B complex with 1 tab PO QAM 06/09/21 01/23/22 C-selenium 70 mcg-zinc 15 mg tablet ferrous sulfate 325 mg (65 mg 325 mg PO TID 09/11/21 01/23/22 iron) tablet metformin 850 mg tablet 850 mg PO BID 09/11/21 01/23/22 pantoprazole 40 mg tablet,delayed 40 mg PO DAILY 09/11/21 01/23/22 release Previous Rx's Medication Instructions Recorded gabapentin 100 mg capsule 200 mg PO BID 30 Days #120 cap 06/22/21 tamsulosin 0.4 mg capsule 0.4 mg PO HS 30 Days #30 cap 06/22/21 docusate sodium 100 mg capsule 100 mg PO BID PRN #60 cap 09/21/21 furosemide 40 mg tablet 40 mg PO QAM #30 tab 09/21/21 metoprolol succinate 50 mg 100 mg PO DAILY #60 tab 09/21/21 tablet,extended release 24 hr multivitamin with folic acid 400 1 tab PO QAM #30 tab 09/21/21 mcg tablet (Daily-Cesar (with folic acid)) polyethylene glycol 3350 17 gram 17 g PO DAILY PRN #30 ea 09/21/21 oral powder packet (Miralax) spironolactone 25 mg tablet 25 mg PO DAILY #30 tab 11/03/21 lisinopril 20 mg tablet 20 mg PO QAM #30 tab 11/17/21 Results & Data (ED) Vital Signs Vital Signs - 24 hr 02/10/22 06:02 02/10/22 06:14 02/10/22 06:16 Temperature 35.1 C L Temperature Source Rectal Pulse Rate 88 Pulse Rate [Apical] 85 Respiratory Rate 19 22 Respiratory Effort / Characteristics Non-Labored Spontaneous Respiratory Depth Normal Blood Pressure 86/65 L Blood Pressure [Right Arm] 93/58 L Blood Pressure Mean 72 Blood Pressure Mean [Right Arm] 69 Pulse Oximetry 100 100 100 Oxygen Delivery Method Room Air Room Air Sepsis Recent Fever Within 48 Hours No Sepsis New/Unexplained Change in Mental Status No Sepsis Action Taken by Nursing No Action Required 02/10/22 07:20 02/10/22 07:24 02/10/22 07:39 Temperature 34.8 C L 34.8 C L 34.7 C L Temperature Source Rectal Rectal Rectal Pulse Rate 86 84 79 Pulse Rate [Apical] Respiratory Rate 21 20 18 Respiratory Effort / Characteristics Respiratory Depth Blood Pressure 81/54 L 81/54 L 103/65 Blood Pressure [Right Arm] Blood Pressure Mean 63 63 77 Blood Pressure Mean [Right Arm] Pulse Oximetry 100 100 100 Oxygen Delivery Method Sepsis Recent Fever Within 48 Hours Sepsis New/Unexplained Change in Mental Status Sepsis Action Taken by Nursing 02/10/22 07:49 02/10/22 07:52 02/10/22 08:09 Temperature 34.7 C L 34.7 C L 34.7 C L Temperature Source Rectal Rectal Rectal Pulse Rate 80 82 83 Pulse Rate [Apical] Respiratory Rate 18 18 16 Respiratory Effort / Characteristics Respiratory Depth Blood Pressure 114/72 114/72 111/75 Blood Pressure [Right Arm] Blood Pressure Mean 86 86 87 Blood Pressure Mean [Right Arm] Pulse Oximetry 100 100 100 Oxygen Delivery Method Sepsis Recent Fever Within 48 Hours Sepsis New/Unexplained Change in Mental Status Sepsis Action Taken by Nursing 02/10/22 08:16 02/10/22 08:24 Temperature 34.7 C L 34.7 C L Temperature Source Rectal Rectal Pulse Rate 83 83 Pulse Rate [Apical] Respiratory Rate 16 16 Respiratory Effort / Characteristics Respiratory Depth Blood Pressure 111/75 106/73 Blood Pressure [Right Arm] Blood Pressure Mean 87 84 Blood Pressure Mean [Right Arm] Pulse Oximetry 100 100 Oxygen Delivery Method Sepsis Recent Fever Within 48 Hours Sepsis New/Unexplained Change in Mental Status Sepsis Action Taken by Nursing Laboratory Data Result diagrams: 02/10/22 06:13 02/10/22 06:13 Lab Results 02/10/22 02/10/22 02/10/22 Range/Units 06:13 06:13 06:13 WBC 6.47 (4.8-10.8) K/uL RBC 1.80 L (4.7-6.1) M/uL Hgb 5.2 L* (14.0-18.0) g/dL Hct 16.1 L* (42-52) % MCV 89.4 (80-100) fL MCH 28.9 (25-34) pg MCHC 32.3 (32-36) g/dL RDW Std Deviation 58.4 H (36.4-46.3) fL RDW Coeff of Vel 17.9 H (11.5-14.5) % Plt Count 212 (130-400) K/uL MPV 9.4 (7.4-10.4) fL Immature Gran % (Auto) 0.5 % Neut % (Auto) 86.3 % Lymph % (Auto) 9.6 % Cowley % (Auto) 3.4 % Eos % (Auto) 0.0 % Baso % (Auto) 0.2 % Neut # (Auto) 5.59 (1.4-6.5) K/uL Lymph # (Auto) 0.62 L (1.2-3.4) K/uL Cowley # (Auto) 0.22 (0.11-0.59) K/uL Eos # (Auto) 0.00 (0-0.5) K/uL Baso # (Auto) 0.01 (0-0.2) K/uL Immature Gran # (Auto) 0.03 H (0.00-0.02) K/uL Acanthocytes (Spur) 1+ PT 15.7 H (9.0-12.0) Seconds INR 1.5 H (0.9-1.1) APTT 28.3 (21.0-31.0) Seconds PTT Ratio 1.0 Sodium (136-145) mmol/L Potassium (3.5-5.1) mmol/L Chloride (98-107) mmol/L Carbon Dioxide (21-32) mmol/L Anion Gap (3-11) BUN (6-23) mg/dl Creatinine (0.6-1.4) mg/dl Est Cr Clr Drug Dosing Est GFR ( Amer) ml/min Est GFR (Non-Af Amer) ml/min BUN/Creatinine Ratio (10-20) Glucose (70-99(Fasting)) mg/dl Calcium (8.5-10.1) mg/dl Total Bilirubin (0.2-1.0) mg/dl AST (13-39) U/L ALT (7-52) U/L Alkaline Phosphatase (34-104) U/L Total Protein (6.0-8.3) gm/dl Albumin (3.4-5.0) gm/dl Globulin (2.5-4.0) gm/dl Albumin/Globulin Ratio (0.9-2) POC Stool Occult Blood (Negative) SARS-CoV-2, RNA, NAAT (NEGATIVE) Blood Type O Positive Antibody Screen NEGATIVE Crossmatch See Detail 02/10/22 02/10/22 02/10/22 Range/Units 06:13 06:13 07:30 WBC (4.8-10.8) K/uL RBC (4.7-6.1) M/uL Hgb (14.0-18.0) g/dL Hct (42-52) % MCV (80-100) fL MCH (25-34) pg MCHC (32-36) g/dL RDW Std Deviation (36.4-46.3) fL RDW Coeff of Vel (11.5-14.5) % Plt Count (130-400) K/uL MPV (7.4-10.4) fL Immature Gran % (Auto) % Neut % (Auto) % Lymph % (Auto) % Cowley % (Auto) % Eos % (Auto) % Baso % (Auto) % Neut # (Auto) (1.4-6.5) K/uL Lymph # (Auto) (1.2-3.4) K/uL Cowley # (Auto) (0.11-0.59) K/uL Eos # (Auto) (0-0.5) K/uL Baso # (Auto) (0-0.2) K/uL Immature Gran # (Auto) (0.00-0.02) K/uL Acanthocytes (Spur) PT (9.0-12.0) Seconds INR (0.9-1.1) APTT (21.0-31.0) Seconds PTT Ratio Sodium 135 L (136-145) mmol/L Potassium 5.2 H (3.5-5.1) mmol/L Chloride 102 (98-107) mmol/L Carbon Dioxide 16 L (21-32) mmol/L Anion Gap 17 H (3-11) BUN 27 H (6-23) mg/dl Creatinine 1.19 (0.6-1.4) mg/dl Est Cr Clr Drug Dosing Not Reportable Est GFR ( Amer) 71.3 ml/min Est GFR (Non-Af Amer) 61.5 ml/min BUN/Creatinine Ratio 22.7 H (10-20) Glucose 172 H (70-99(Fasting)) mg/dl Calcium 7.8 L (8.5-10.1) mg/dl Total Bilirubin 1.7 H (0.2-1.0) mg/dl AST 20 (13-39) U/L ALT 17 (7-52) U/L Alkaline Phosphatase 170 H (34-104) U/L Total Protein 5.1 L (6.0-8.3) gm/dl Albumin 3.2 L (3.4-5.0) gm/dl Globulin 1.9 L (2.5-4.0) gm/dl Albumin/Globulin Ratio 1.7 (0.9-2) POC Stool Occult Blood Positive A (Negative) SARS-CoV-2, RNA, NAAT NEGATIVE (NEGATIVE) Blood Type Antibody Screen Crossmatch Administered Medications Discontinued Medications Ioversol (Optiray 320 100ml) 95 ml IV ONCE ONE Stop: 02/10/22 07:16 Last Admin: 02/10/22 07:15 Dose: 95 ml Documented by: [id number] Imaging Data Radiologist's Impression: Abdomen/Pelvis CT 02/10/22 06:[address] WITH IV CONTRAST CT DOSE: 778.40 mGy.cm HISTORY: GI bleed. TECHNIQUE: Multiaxial CT images of the abdomen and pelvis were performed following the use of intravenous contrast. A dose lowering technique was utilized adhering to the principles of ALARA. COMPARISON STUDY: Abdomen and pelvis CT 06/09/2021. FINDINGS: The heart is enlarged. Moderate right and small left pleural effusions. The right pleural effusion results in near complete compressive atelectasis of the right lower lobe. Stable 4 mm nodule within the right middle lobe on image 35. No pneumoperitoneum. No pneumatosis. Degenerative changes within the lumbar spine. No fractures within the visualized osseous structures. Moderate body wall edema is noted. Stable hypodense lesions within the liver with the largest in the posterior segment of the right hepatic lobe measuring 3.9 cm. This favors a hemangioma given the discontinuous peripheral nodular enhancement. The main portal vein is patent. A few small gallstones are noted. Stable 2.3 cm exophytic hypodense lesion within the spleen. This is likely be nign. The adrenal glands and pancreas unremarkable. Moderate bilateral cortical renal scarring. No hydronephrosis. Stable bilateral renal hypodense lesions. These likely represent cysts. Moderate bilateral perinephric edema with moderate mesenteric edema and trace ascites. Calcified plaque within the normal caliber abdominal aorta. Stable prominent retroperitoneal lymph nodes. The bladder is unremarkable. Mild thickening of the distal rectum best seen image 434.. Colonic diverticulosis. No evidence for acute diverticulitis. The colon is decompressed resulting in suboptimal evaluation. No definite bowel wall thickening involving the colon or small bowel. No evidence for bowel obstruction. Normal appendix. IMPRESSION: 1. Mild thickening of the distal rectum. This nonspecific but could represent a mild proctitis or possibly hemorrhoids. 2. Colonic diverticulosis. No evidence for acute diverticulitis. 3. No evidence for bowel obstruction. 4. Normal appendix. 5. Moderate right and small left pleural effusions which have developed in the interval. 6. Diffuse edematous state demonstrated by mesenteric edema, perinephric edema, trace ascites, and body wall edema. This has developed in the interval. 7. Cholelithiasis. 8. Additional findings as described above. ACT 112: Negative or not required by law. Electronically signed by: Clarence De La Vega M.D. 02/10/2022 8:02 AM Discharge Plan Visit Data Chief Complaint: GI Bleed Stated Complaint: Rectal Bleed ED Provider: Billy Mcclure Discharge Problem: Acute GI bleeding, Symptomatic anemia, Acute hypotension Forms Stand Alone Forms: [facility] [employer] Prescriptions Prescriptions: No Action lisinopril 20 mg tablet 20 mg PO QAM Qty: 30 RF: 3 spironolactone 25 mg tablet 25 mg PO DAILY Qty: 30 RF: 11 atorvastatin [Lipitor] 80 mg tablet 80 mg PO HS RF: 0 clopidogrel [Plavix] 75 mg tablet 75 mg PO QAM RF: 0 aspirin 81 mg Tablet,Delayed Release (Dr/Ec) 81 mg PO QAM RF: 0 folic acid-B [id number] 3-70-15 mg-mcg-mg Tablet 1 tab PO QAM RF: 0 tamsulosin 0.4 mg Capsule 0.4 mg PO HS 30 Days Qty: 30 RF: 3 gabapentin 100 mg Capsule 200 mg PO BID 30 Days Qty: 120 RF: 1 metformin 850 mg Tablet 850 mg PO BID RF: 0 pantoprazole 40 mg Tablet,Delayed Release (Dr/Ec) 40 mg PO DAILY RF: 0 ferrous sulfate 325 mg (65 mg iron) Tablet 325 mg PO TID RF: 0 furosemide 40 mg Tablet 40 mg PO QAM Qty: 30 RF: 0 polyethylene glycol 3350 [Miralax] 17 gram Powder In Packet 17 g PO DAILY PRN (Reason: constipation) Qty: 30 RF: 0 docusate sodium 100 mg Capsule 100 mg PO BID PRN (Reason: Constipation) Qty: 60 RF: 0 multivitamin with folic acid [Daily-Cesar (with folic acid)] 400 mcg Tablet 1 tab PO QAM Qty: 30 RF: 0 metoprolol succinate 50 mg tablet extended release 24 hr 100 mg PO DAILY Qty: 60 RF: 0 Referrals Referrals: [facility] [Primary Care Provider] -
[2022-02-10 06:49] LABS: Acanthocytes 1+; Basophils # (auto) 0.01 K/uL (0-0.2); Basophils % (auto) 0.2 %; Immature Granulocytes # (auto) 0.03 K/uL (0.00-0.02); Immature Granulocytes % (auto) 0.5 %; Lymphocytes # (auto) 0.62 K/uL (1.2-3.4); Lymphocytes % (auto) 9.6 %; Monocytes # (auto) 0.22 K/uL (0.11-0.59); Monocytes % (auto) 3.4 %; Neutrophils # (auto) 5.59 K/uL (1.4-6.5); Neutrophils % (auto) 86.3 %
[2022-02-10 06:56] LABS: Alanine Aminotransferase 17 U/L (7-52); Albumin Globulin Ratio 1.7 (0.9-2); Albumin Level 3.2 gm/dl (3.4-5.0); Alkaline Phosphatase 170 U/L (34-104); Anion Gap 17 (3-11); Aspartate Aminotransferase 20 U/L (13-39); BUN Creatinine Ratio 22.7 (10-20); Bilirubin,Total 1.7 mg/dl (0.2-1.0); Blood Urea Nitrogen 27 mg/dl (6-23); Calcium 7.8 mg/dl (8.5-10.1); Carbon Dioxide 16 mmol/L (21-32); Chloride 102 mmol/L (98-107); Est GFR (African American) 71.3 ml/min; Est GFR (Non-African American) 61.5 ml/min; Globulin 1.9 gm/dl (2.5-4.0); Glucose 172 mg/dl (70-99(Fasting)); Potassium 5.2 mmol/L (3.5-5.1); Sodium 135 mmol/L (136-145); Total Protein 5.1 gm/dl (6.0-8.3)
[2022-02-10] MEDS ORDERED: OPTIRAY 320 100ml IV ONE (07:15)
--- NOTE | 2022-02-10 08:04 | CT Scan Report ---
ABDOMEN AND PELVIS CT WITH IV CONTRAST CT DOSE: 778.40 mGy.cm HISTORY: GI bleed. TECHNIQUE: Multiaxial CT images of the abdomen and pelvis were performed following the use of intrave nous contrast. A dose lowering technique was utilized adhering to the principles of ALARA. COMPARISON STUDY: Abdomen and pelvis CT 06/09/2021. FINDINGS: The heart is enlarged. Moderate right and small left pleural effusions. The right pleural e ffusion results in near complete compressive atelectasis of the right lower lobe. Stable 4 mm nodule within the right middle lobe on image 35. No pneumoperitoneum. No pneumatosis. Degenerative changes w ithin the lumbar spine. No fractures within the visualized osseous structures. Moderate body wall aidan ma is noted. Stable hypodense lesions within the liver with the largest in the posterior segment of t he right hepatic lobe measuring 3.9 cm. This favors a hemangioma given the discontinuous peripheral n odular enhancement. The main portal vein is patent. A few small gallstones are noted. Stable 2.3 cm e xophytic hypodense lesion within the spleen. This is likely benign. The adrenal glands and pancreas u nremarkable. Moderate bilateral cortical renal scarring. No hydronephrosis. Stable bilateral renal hy podense lesions. These likely represent cysts. Moderate bilateral perinephric edema with moderate mes enteric edema and trace ascites. Calcified plaque within the normal caliber abdominal aorta. Stable p rominent retroperitoneal lymph nodes. The bladder is unremarkable. Mild thickening of the distal rect um best seen image 434.. Colonic diverticulosis. No evidence for acute diverticulitis. The colon is d ecompressed resulting in suboptimal evaluation. No definite bowel wall thickening involving the colon or small bowel. No evidence for bowel obstruction. Normal appendix. IMPRESSION: 1. Mild thickening of the distal rectum. This nonspecific but could represent a mild proctitis or pos sibly hemorrhoids. 2. Colonic diverticulosis. No evidence for acute diverticulitis. 3. No evidence for bowel obstruction. 4. Normal appendix. 5. Moderate right and small left pleural effusions which have developed in the interval. 6. Diffuse edematous state demonstrated by mesenteric edema, perinephric edema, trace ascites, and juan dy wall edema. This has developed in the interval. 7. Cholelithiasis. 8. Additional findings as described above. ACT 112: Negative or not required by law. Electronically signed by: Clarence De La Vega M.D. 02/10/2022 8:02 AM
[2022-02-10] MEDS ORDERED: PANTOprazole 80 MG in DEXTROSE 5% 100 ML IV ONE (08:06)
[2022-02-10] MEDS ORDERED: PANTOPRAZOLE BOLUS/DRIP 1 EA IV STA (08:06)
[2022-02-10] MEDS ORDERED: PANTOprazole 40 MG in DEXTROSE 5% 100 ML IV SCH (08:30)
--- NOTE | 2022-02-10 08:31 | Electrocardiogram Report ---
Test Reason : Blood Pressure : / mmHG Vent. Rate : 085 BPM Atrial Rate : 085 BPM P-R Int : 248 ms QRS Dur : 120 ms QT Int : 444 ms P-R-T Axes : 000 -72 102 degrees QTc Int : 528 ms Sinus rhythm with 1st degree A-V block Non-specific intra-ventricular conduction delay Left axis deviation ST depression in Anterolateral leads , consider ischemia Abnormal ECG When compared with ECG of 13-SEP-2021 05:19, Premature supraventricular complexes are no longer Present ST depression in Anterolateral leads now present Confirmed by Antione Jay ([id number]) on 02/10/2022 8:31:11 AM Referred By: Confirmed By:Antione Jay
[2022-02-10] MEDS ORDERED: FUROSEMIDE INJ 20 MG/2 ML VIAL IV ONE (09:10)
--- NOTE | 2022-02-10 10:19 | History & Physical Report ---
Date of Service February 10, 2022 Assessment & Plan (1) Acute blood loss anemia: (2) Acute GI bleeding: Plan: Admit to PCU Patient presenting from [facility] for evaluation of large amount of bright bleeding per rectum In the ED, found to be hypotensive with Hgb 5.2 Patient urgently received 3 unit PRBC and had improvement in BP and mentation CT ABD/pelvis showing colonic diverticulosis. Suspect diverticular bleed S/p Protonix bolus and drip in the ED, continue with for now Hold ASA and Plavix Serial H&H GI consult (3) CAD (coronary artery disease), [place] coronary artery: Plan: Appears stable, no reports of chest pain s/p HERNANDEZ to distal LM and proximal LAD January 2021 (referred for CABG however patient opted for medical management) Hold ASA and Plavix, continue statin and beta-vince Consider cardiology consult regarding the use of Plavix going forward in the setting of severe GI bleeding (4) Ischemic cardiomyopathy: Plan: EF 25 to 30% Appears euvolemic, received Lasix 20 mg IV with PRBC Hold spironolactone and Lasix for now Monitor volume status closely, resume diuretics as able (5) Diabetes mellitus: Plan: Hgb A1c 6.5 09/2021 Hold oral agents and utilize NovoLog per protocol while hospitalized (6) PAD (peripheral artery disease): (7) History of right common carotid artery stent placement: (8) History of CVA with residual deficit: Plan: Holding ASA and Plavix as above, continue statin (9) HTN (hypertension): Plan: Hold lisinopril due to hypotension, resume as able (10) DVT prophylaxis: Plan: SCDs in the setting of GI bleeding History of Present Illness Chief Complaint: Bright red bleeding per rectum Primary Care Provider: [facility] 71-year-old male with PMH DM type II, HTN, history of CVA, left BKA, multivessel CAD s/p HERNANDEZ to distal LM and proximal LAD January 2021 (referred for CABG however patient opted for medical management), ischemic cardiomyopathy EF 25 to 30%, who presents to the ED from [facility] for evaluation of large amount of bright red bleeding per rectum. History obtained from review of records and [facility] staff. History from patient obtained from Dr. Morrison. See addendum for further details. Per the nurse at [facility], patient was noted to have a small amount of bright red blood in his brief yesterday. This was felt to be secondary to hemorrhoidal bleeding. This morning, patient was calling out for help and he was found to be " covered in blood" and a large amount of bright red blood in his brief. Patient had altered mental status and was sent to the ED for further evaluation. In the ED, patient was found to be hypotensive, BP 81/54. Labs showed significant anemia with Hgb 5.2. Patient was emergently given 3 unit PRBC. He was also given IVF and started on a Protonix drip. BP and mental status improved. Allergies Allergy/AdvReac Type Severity Reaction Status Date / Time No Known Allergies Allergy Verified 02/10/22 08:40 Home Medications Medication Instructions Recorded Confirmed Type aspirin 81 mg tablet,delayed 81 mg PO QAM 06/09/21 02/10/22 History release atorvastatin 80 mg tablet (Lipitor) 80 mg PO PM 06/09/21 02/10/22 History clopidogrel 75 mg tablet (Plavix) 75 mg PO QAM 06/09/21 02/10/22 History folic acid 3 mg-vit B complex with 1 tab PO QAM 06/09/21 02/10/22 History C-selenium 70 mcg-zinc 15 mg tablet gabapentin 100 mg capsule 200 mg PO BID 30 Days #120 cap 06/22/21 02/10/22 Rx ferrous sulfate 325 mg (65 mg 325 mg PO TID 09/11/21 02/10/22 History iron) tablet metformin 850 mg tablet 850 mg PO BID 09/11/21 02/10/22 History pantoprazole 40 mg tablet,delayed 40 mg PO DAILY@0730 09/11/21 02/10/22 History release docusate sodium 100 mg capsule 100 mg PO BID PRN #60 cap 09/21/21 02/10/22 Rx furosemide 40 mg tablet 40 mg PO QAM #30 tab 09/21/21 02/10/22 Rx multivitamin with folic acid 400 1 tab PO QAM #30 tab 09/21/21 02/10/22 Rx mcg tablet (Daily-Cesar (with folic acid)) polyethylene glycol 3350 17 gram 17 g PO DAILY PRN #30 ea 09/21/21 02/10/22 Rx oral powder packet (Miralax) lisinopril 20 mg tablet 20 mg PO QAM #30 tab 11/17/21 02/10/22 Rx metoprolol succinate 50 mg 100 mg PO DAILY@1000 02/10/22 02/10/22 History tablet,extended release 24 hr spironolactone 25 mg tablet 25 mg PO QAM 02/10/22 02/10/22 History tamsulosin 0.4 mg capsule 0.4 mg PO PM 02/10/22 02/10/22 History Past Med/Surg History Medical History (Updated 02/10/22 @ 10:29 by ANA Dudley) Anemia CAD (coronary artery disease), [place] coronary artery 02/12/2021: PCI with HERNANDEZ to the distal left main and proximal LAD. Additional distal LAD disease. Large non dominant left circumflex with moderate diffuse disease. Long subtotal occlusion of the distal vessel. Large dominant RCA with focal 70-80% lesion in the mid vessel. Diffuse [id number] distal disease. Carotid stenosis Diabetes mellitus History of CVA with residual deficit History of left below knee amputation Hyperlipidemia LDL goal <70 Ischemic cardiomyopathy LBBB (left bundle branch block) Mitral regurgitation NSTEMI (non-ST elevated myocardial infarction) Peripheral vascular disease Symptomatic anemia Surgical History (Updated 02/10/22 @ 10:33 by ANA Dudley) History of coronary artery stent placement History of right common carotid artery stent placement Status post below-knee amputation of left lower extremity Dr English 06/2021 Family History Other Diabetes Social History Smoking Status: Former smoker Smoking End Date: 1984; Do You Dip or Chew Tobacco: No; Hx Alcohol Use: No Hx Substance Use: No Preferred Language: Lao Communication Ability: Effective Visual Impairment: Limited Hearing Ability: Normal Principal Product Manager Required: No Beliefs That Will Affect Care: None marital status: Single Current Living Situation: Group Home Current Living Situation Comment: [place] current occupational status: retired Feels Safe at Home: Yes Safety Concerns: Feels Safe At This Time Assistive Devices: None Review of Systems Review of Systems: Refer to Dr. Morrison's addendum for review of systems Physical Exam Physical Exam: Refer to Dr. Morrison's addendum for physical exam Results & Data Results & Data ([facility]) Vital Signs (Past 12 Hours) Vital Signs Temp Pulse Pulse Resp BP BP Pulse Ox 02/10/22 09:44 36.4 C L 89 20 109/80 100 02/10/22 09:29 36.4 C L 88 20 109/72 100 02/10/22 09:17 35.3 C L 88 20 115/74 100 02/10/22 09:10 35.3 C L 86 16 112/75 100 02/10/22 09:08 35.3 C L 86 16 112/75 100 02/10/22 08:54 35.3 C L 85 18 116/76 100 02/10/22 08:24 34.7 C L 83 16 106/73 100 02/10/22 08:16 34.7 C L 83 16 111/75 100 02/10/22 08:09 34.7 C L 83 16 111/75 100 02/10/22 07:52 34.7 C L 82 18 114/72 100 02/10/22 07:49 34.7 C L 80 18 114/72 100 02/10/22 07:39 34.7 C L 79 18 103/65 100 02/10/22 07:24 34.8 C L 84 20 81/54 L 100 02/10/22 07:20 34.8 C L 86 21 81/54 L 100 02/10/22 06:16 85 22 93/58 L 100 02/10/22 06:14 100 02/10/22 06:02 35.1 C L 88 19 86/65 L 100 Laboratory Results Short CBC 02/10/22 Range/Units 06:13 WBC 6.47 (4.8-10.8) K/uL Hgb 5.2 L* (14.0-18.0) g/dL Hct 16.1 L* (42-52) % Plt Count 212 (130-400) K/uL BMP 02/10/22 06:13 Sodium 135 L Potassium 5.2 H Chloride 102 Carbon Dioxide 16 L BUN 27 H Creatinine 1.19 Glucose 172 H Calcium 7.8 L Liver Function 02/10/22 Range/Units 06:13 Total Bilirubin 1.7 H (0.2-1.0) mg/dl AST 20 (13-39) U/L ALT 17 (7-52) U/L Alkaline Phosphatase 170 H (34-104) U/L Albumin 3.2 L (3.4-5.0) gm/dl Diagnostic Findings Abdomen/Pelvis CT 02/10/22 06:[address] WITH IV CONTRAST CT DOSE: 778.40 mGy.cm HISTORY: GI bleed. TECHNIQUE: Multiaxial CT images of the abdomen and pelvis were performed following the use of intravenous contrast. A dose lowering technique was utilized adhering to the principles of ALARA. COMPARISON STUDY: Abdomen and pelvis CT 06/09/2021. FINDINGS: The heart is enlarged. Moderate right and small left pleural effusions. The right pleural effusion results in near complete compressive atelectasis of the right lower lobe. Stable 4 mm nodule within the right middle lobe on image 35. No pneumoperitoneum. No pneumatosis. Degenerative changes within the lumbar spine. No fractures within the visualized osseous structures. Moderate body wall edema is noted. Stable hypodense lesions within the liver with the largest in the posterior segment of the right hepatic lobe measuring 3.9 cm. This favors a hemangioma given the discontinuous peripheral nodular enhancement. The main portal vein is patent. A few small gallstones are noted. Stable 2.3 cm exophytic hypodense lesion within the spleen. This is likely benign. The adrenal glands and pancreas unremarkable. Moderate bilateral cortical renal scarring. No hydronephrosis. Stable bilateral renal hypodense lesions. These likely represent cysts. Moderate bilateral perinephric edema with moderate mesenteric edema and trace ascites. Calcified plaque within the normal caliber abdominal aorta. Stable prominent retroperitoneal lymph nodes. The bladder is unremarkable. Mild thickening of the distal rectum best seen image 434.. Colonic diverticulosis. No evidence for acute diverticulitis. The colon is decompressed resulting in suboptimal evaluation. No definite bowel wall thickening involving the colon or small bowel. No evidence for bowel obstruction. Normal appendix. IMPRESSION: 1. Mild thickening of the distal rectum. This nonspecific but could represent a mild proctitis or possibly hemorrhoids. 2. Colonic diverticulosis. No evidence for acute diverticulitis. 3. No evidence for bowel obstruction. 4. Normal appendix. 5. Moderate right and small left pleural effusions which have developed in the interval. 6. Diffuse edematous state demonstrated by mesenteric edema, perinephric edema, trace ascites, and body wall edema. This has developed in the interval. 7. Cholelithiasis. 8. Additional findings as described above. ACT 112: Negative or not required by law. Electronically signed by: Clarence De La Vega M.D. 02/10/2022 8:02 AM Supervising Physician Co-Signing Physician Notes Pt was seen and examined. Agreed with Darleen PEREZ exam, assessment an plan. 71-year-old male with PMH DM type II, HTN, history of CVA, left BKA, multivessel CAD s/p HERNANDEZ to distal LM and proximal LAD January 2021, ischemic cardiomyopathy EF 25 to 30%, who presents to the ED from [facility] for GI bleed. Pt was sent to the ER after large amount of bright red bleeding per rectum. History is limited since pt did not recall the incident that brought him to the hospital. Pt said that yesterday that he had an episode of bloody BM. he said that he has been doing fine. My colleague called [facility], the staff said this morning pt was found with blood covered his briefs. Staff said he was confused and pale. In the ER he was found hypotensive with BP 81/54. Hgb 5.2 on admission. Pt received 3 units PRBC in the ER. All systems reviewed & are unremarkable except as noted in HPI & below General- No acute distress Head- atraumatic Eyes- PERRL, EOMI, ENT- oropharynx clear Neck- supple, no JVD Lungs- clear to auscultation Heart- regular rhythm; no murmur Abdomen- normal bowel sounds, soft, nontender Extremities- no calf tenderness, Left BKA, +RLE edema Neuro- alert, oriented x 3; PERRL, EOMI; no facial palsy; no dysarthria Skin- warm & dry A/P GI bleed Hgb on admission 5.2 Possible due to diverticular bleed CT abd/pelvis Mild thickening of the distal rectum. Colonic diverticulosis. Diffuse edematous state demonstrated by mesenteric edema, perinephric edema, trace ascites, and body wall edema. FOBT positive on admission Received 3 units PRBC in the ER with Lasix 20mg IV x1 given Repeat Hgb 9.9 today Case discussed with GI dr. Miller No scope for now since pt is on plavix if bleeding continues, consider tagged RBC scan. then if bleeding location found consider IR eval Continue to hold plavix and aspirin Continue PPI IV Will start on clear liquid diet Might consider colonoscopy on Saturday if bleeding continue Continue monitor H/H Please refer to Darleen's documentation for other problems. MD Tamiko (1) Diabetes mellitus Diabetes mellitus complication status: with other specified complication Diabetes mellitus ferry terminal agent insulin use: unspecified ferry terminal agent insulin use status Diabetes mellitus type: other specified (including RODRI) Qualified Code(s): E13.69 - Other specified diabetes mellitus with other specified complication
[2022-02-10] MEDS ORDERED: ASCORBIC ACID PO SCH (10:53)
[2022-02-10] MEDS ORDERED: ACETAMINOPHEN 325 MG TAB PO PRN (10:53)
[2022-02-10] MEDS ORDERED: FOLIC ACID PO SCH (10:53)
[2022-02-10] MEDS ORDERED: GLUCOSE 10 TABS/TUBE PO PRN (10:53)
[2022-02-10] MEDS ORDERED: DEXTROSE 50% 50 ML SYRINGE IV PRN (10:53)
[2022-02-10] MEDS ORDERED: GLUCOSE 40% GEL 15 GM TUBE PO PRN (10:53)
[2022-02-10] MEDS ORDERED: VITAMIN B COMPLEX PO SCH (10:53)
[2022-02-10] MEDS ORDERED: GLUCAGON FOR INJ 1 MG VIAL SQ PRN (10:53)
[2022-02-10] MEDS ORDERED: CARBOHYDRATES FOR HYPOGLYCEMIA PO PRN (10:53)
[2022-02-10] MEDS ORDERED: SELENIUM PO SCH (10:53)
[2022-02-10] MEDS ORDERED: ZINC PO SCH (10:53)
[2022-02-10] MEDS: GABAPENTIN 100 MG CAP PO SCH ×2 (11:44→20:06)
[2022-02-10] MEDS: MULTIVITAMIN TAB PO SCH (11:44)
[2022-02-10] MEDS: FERROUS SULFATE 325 MG TAB PO SCH ×3 (11:44→20:06)
[2022-02-10] MEDS: INSULIN ASPART PER UNIT SC SCH ×3 (11:47→20:55)
[2022-02-10 15:07] LABS: Hemoglobin 9.9 g/dL (14.0-18.0)
--- NOTE | 2022-02-10 15:14 | Gastrointestinal Consultation ---
Date of Consultation February 10, 2022 Supervising Physician Co-Signing Physician Notes Consult for rectal bleeding. Painless rectal bleeding with an acute drop in hgb, suspect this is a diverticular bleed. No signs of ongoing gi bleed at the moment. Hgb has risen from 5 to 9 after transfusion. Benign abd exam. If brisk profuse rectal bleeding, suspect this is diverticular, can consider tagged rbc scan. Can consider a colonoscopy saturday with prep saturday if he is agreeable. Clear liquids is fine for now. This plan was discussed with Dr. Morrison. History of Present Illness Reason for Consultation: Rectal bleeding Requesting Physician: Dr Morrison/Darleen Fair Attending Physician: Amy Morrison MD History of Present Illness 71 yo male for which GI is consults for rectal bleeding. He has a history of prior osteomyelitis, cva in 02/19 on plavix, with reports of tinges of dark stool yesterday when he wiped while at [place], today this morning found reportedly in a pool of red blood. Came to the ER - Was contacted by Dr. Mcclure about the patient, he was not having an active gi bleed in the er per report to me but reported a history of maroon colored stools and hgb was noted to be 5 in the er with stable hemodynamics. He was then admitted to the floor, transfused. I was called by Dr. Morrison and spoke to him as well about this likely be a diverticular bleed given acute onset, painless, and drop in hgb. Patient remains hemodynamically stable. No prior scopes per review of his outpt charts. Reportedly got plavix this am. Hgb is now 9 and is he on the floor. The patient reports no abdominal pain when seen this afternoon. He is not having further bleeding. Allergies Allergy/AdvReac Type Severity Reaction Status Date / Time No Known Allergies Allergy Verified 02/10/22 08:40 Home Medications Medication Instructions Recorded Confirmed Type aspirin 81 mg tablet,delayed 81 mg PO QAM 06/09/21 02/10/22 History release atorvastatin 80 mg tablet (Lipitor) 80 mg PO PM 06/09/21 02/10/22 History clopidogrel 75 mg tablet (Plavix) 75 mg PO QAM 06/09/21 02/10/22 History folic acid 3 mg-vit B complex with 1 tab PO QAM 06/09/21 02/10/22 History C-selenium 70 mcg-zinc 15 mg tablet gabapentin 100 mg capsule 200 mg PO BID 30 Days #120 cap 06/22/21 02/10/22 Rx ferrous sulfate 325 mg (65 mg 325 mg PO TID 09/11/21 02/10/22 History iron) tablet metformin 850 mg tablet 850 mg PO BID 09/11/21 02/10/22 History pantoprazole 40 mg tablet,delayed 40 mg PO DAILY@0730 09/11/21 02/10/22 History release docusate sodium 100 mg capsule 100 mg PO BID PRN #60 cap 09/21/21 02/10/22 Rx furosemide 40 mg tablet 40 mg PO QAM #30 tab 09/21/21 02/10/22 Rx multivitamin with folic acid 400 1 tab PO QAM #30 tab 09/21/21 02/10/22 Rx mcg tablet (Daily-Cesar (with folic acid)) polyethylene glycol 3350 17 gram 17 g PO DAILY PRN #30 ea 09/21/21 02/10/22 Rx oral powder packet (Miralax) lisinopril 20 mg tablet 20 mg PO QAM #30 tab 11/17/21 02/10/22 Rx metoprolol succinate 50 mg 100 mg PO DAILY@1000 02/10/22 02/10/22 History tablet,extended release 24 hr spironolactone 25 mg tablet 25 mg PO QAM 02/10/22 02/10/22 History tamsulosin 0.4 mg capsule 0.4 mg PO PM 02/10/22 02/10/22 History Patient History Medical History (Updated 02/10/22 @ 10:29 by ANA Dudley) Anemia CAD (coronary artery disease), [place] coronary artery 02/12/2021: PCI with HERNANDEZ to the distal left main and proximal LAD. Additional distal LAD disease. Large non dominant left circumflex with moderate diffuse disease. Long subtotal occlusion of the distal vessel. Large dominant RCA with focal 70-80% lesion in the mid vessel. Diffuse [id number] distal disease. Carotid stenosis Diabetes mellitus History of CVA with residual deficit History of left below knee amputation Hyperlipidemia LDL goal <70 Ischemic cardiomyopathy LBBB (left bundle branch block) Mitral regurgitation NSTEMI (non-ST elevated myocardial infarction) Peripheral vascular disease Symptomatic anemia Surgical History (Updated 02/10/22 @ 10:33 by ANA Dudley) History of coronary artery stent placement History of right common carotid artery stent placement Status post below-knee amputation of left lower extremity Dr English 06/2021 Family History Other Diabetes Social History Smoking Status: Former smoker Smoking End Date: 1984; Do You Dip or Chew Tobacco: No; Hx Alcohol Use: No Hx Substance Use: No Preferred Language: Romansh Communication Ability: Effective Visual Impairment: Limited Hearing Ability: Normal Architectural Administrative Assistant Required: No Beliefs That Will Affect Care: None marital status: Single Current Living Situation: Prison Current Living Situation Comment: [facility] current occupational status: retired Feels Safe at Home: Yes Safety Concerns: Feels Safe At This Time Assistive Devices: None Review of Systems Review of Systems: All systems reviewed & are unremarkable except as noted in HPI & below Physical Exam Physical Exam: Well nourished thin male in nad, does not appear pale Eyes: PERRL, conjunctivae normal, anicteric sclerae Respiratory: No audible wheezing noted, normal respirations Gastrointestinal (Abdomen): normal bowel sounds, soft, nontender, no hepatosplenomegaly Results & Data ([facility] [place]) Vital Signs (Past 12 Hours) Vital Signs Temp Pulse Pulse Resp BP BP Pulse Ox 02/10/22 11:28 02/10/22 11:23 36.9 C 92 H 20 117/75 100 02/10/22 11:06 36.9 C 92 H 20 117/75 100 02/10/22 10:14 36.3 C L 89 18 118/77 100 02/10/22 09:44 36.4 C L 89 20 109/80 100 02/10/22 09:29 36.4 C L 88 20 109/72 100 02/10/22 09:17 35.3 C L 88 20 115/74 100 02/10/22 09:10 35.3 C L 86 16 112/75 100 02/10/22 09:08 35.3 C L 86 16 112/75 100 02/10/22 08:54 35.3 C L 85 18 116/76 100 02/10/22 08:24 34.7 C L 83 16 106/73 100 03/12/22 08:16 34.7 C L 83 16 111/75 100 02/10/22 08:09 34.7 C L 83 16 111/75 100 02/10/22 07:52 34.7 C L 82 18 114/72 100 02/10/22 07:49 34.7 C L 80 18 114/72 100 02/10/22 07:39 34.7 C L 79 18 103/65 100 02/10/22 07:24 34.8 C L 84 20 81/54 L 100 02/10/22 07:20 34.8 C L 86 21 81/54 L 100 02/10/22 06:16 85 22 93/58 L 100 02/10/22 06:14 100 02/10/22 06:02 35.1 C L 88 19 86/65 L 100 Pulse Ox 02/10/22 11:28 100 02/10/22 11:23 02/10/22 11:06 02/10/22 10:14 02/10/22 09:44 02/10/22 09:29 02/10/22 09:17 02/10/22 09:10 02/10/22 09:08 02/10/22 08:54 02/10/22 08:24 02/10/22 08:16 02/10/22 08:09 02/10/22 07:52 02/10/22 07:49 02/10/22 07:39 02/10/22 07:24 02/10/22 07:20 02/10/22 06:16 02/10/22 06:14 02/10/22 06:02 Laboratory Results Hgb reviewed - was in the 5 range this am with normal bun, now 9 Diagnostic Findings No prior scopes per review of outpt records CT reviewed- ? proctitis versus hemorrhoids, left sided diverticulosis
[2022-02-10] MEDS ORDERED: ALBUMIN 25% 100 mL 25 GM/100 ML VIAL IV ONE ×3 (19:45→23:37)
[2022-02-10] MEDS: PANTOprazole 40 MG in SYRINGE 0 ML IV SCH (20:04)
[2022-02-10] MEDS: ATORVASTATIN 40 MG TAB PO SCH (20:06)
[2022-02-10 20:07] LABS: BUN Creatinine Ratio 22.6 (10-20); Calcium 8.5 mg/dl (8.5-10.1); Est GFR (African American) 67.8 ml/min; Est GFR (Non-African American) 58.5 ml/min; Magnesium 1.5 mg/dl (1.7-2.4); Potassium 4.7 mmol/L (3.5-5.1)
--- NOTE | 2022-02-10 20:13 | XRay Report ---
XR chest 1V portable HISTORY: weakness, gi bleed COMPARISON: Chest 09/11/2021. FINDINGS: No pneumothorax. The heart remains enlarged. Moderate right and small left pleural effusion s are again noted. No evidence for pulmonary edema. Consolidation within the right lung base favors a telectasis from the pleural effusion. IMPRESSION: No significant change in the cardiomegaly and bilateral pleural effusions. ACT 112: Negative or not required by law. Electronically signed by: Clarence De La Vega M.D. 02/10/2022 8:11 PM
[2022-02-10] MEDS: MAGNESIUM SULFATE / D5W 1 GM/100 ML BAG IV SCH ×2 (20:49→22:41)
[2022-02-10] MEDS ORDERED: TAMSULOSIN HCL 0.4 MG CAP PO SCH ×2 (21:00)
--- NOTE | 2022-02-10 23:39 | Communication Note ---
Date of Service: February 10, 2022 SBP noted to be 70s as per RN. Patient lethargic. Hold antihypertensives, Flomax until BP stable. Hold gabapentin until patient more awake.
[2022-02-11 00:16] LABS: Hematocrit (blood only) 22.8 % (42-52); Hemoglobin 7.9 g/dL (14.0-18.0)
[2022-02-11] MEDS ORDERED: SODIUM CHLORIDE 0.9% 250 ML IV PRN (00:20)
[2022-02-11 07:28] LABS: Hematocrit (blood only) 28.1 % (42-52); Hemoglobin 9.7 g/dL (14.0-18.0); Mean Corpuscular Hgb Conc 34.5 g/dL (32-36); Mean Corpuscular Volume 84.1 fL (80-100); Mean Platelet Volume 9.5 fL (7.4-10.4); Platelet Count 158 K/uL (130-400); RDW Coefficient of Variation 16.4 % (11.5-14.5); RDW Standard Deviation 50.2 fL (36.4-46.3); Red Blood Count 3.34 M/uL (4.7-6.1); White Blood Count 6.31 K/uL (4.8-10.8)
[2022-02-11 07:36] LABS: INR 1.4 (0.9-1.1); Prothrombin Time 14.3 Seconds (9.0-12.0)
[2022-02-11] MEDS: PANTOprazole 40 MG in SYRINGE 0 ML IV SCH ×2 (07:39→20:28)
[2022-02-11] MEDS: FERROUS SULFATE 325 MG TAB PO SCH ×3 (07:39→20:28)
[2022-02-11] MEDS: MULTIVITAMIN TAB PO SCH (07:39)
[2022-02-11 07:43] LABS: Appearance Urine Clear (Clear); Bilirubin Urine Negative (Negative); Blood Urine Negative (Negative); Color Urine Dark Yellow; Glucose Urine UA Negative (Negative); Ketones Urine Negative (Negative); Leukocyte Esterase Urine Negative (Negative); Nitrite Urine Negative (Negative); Protein Urine Negative (Negative); Specific Gravity Urine 1.028 (1.000-1.030); Urobilinogen Urine Negative (Negative); pH Urine 5.5 (4.5-7.5)
[2022-02-11] MEDS: INSULIN ASPART PER UNIT SC SCH ×4 (07:46→20:39)
[2022-02-11 07:49] LABS: Albumin Level 3.6 gm/dl (3.4-5.0); BUN Creatinine Ratio 22.5 (10-20); Bilirubin Direct 0.6 mg/dl (0-0.2); Bilirubin,Total 1.7 mg/dl (0.2-1.0); Creatinine Clr Calc Pharmacy 61.7 ml/min; Est GFR (African American) 64.7 ml/min; Est GFR (Non-African American) 55.8 ml/min; Potassium 4.1 mmol/L (3.5-5.1); Total Protein 5.2 gm/dl (6.0-8.3)
[2022-02-11] MEDS ORDERED: METOPROLOL SUCC 25MG EXT REL TAB PO SCH (10:00)
[2022-02-11] MEDS ORDERED: METOPROLOL SUCC 50MG EXT REL TAB PO SCH (10:00)
--- NOTE | 2022-02-11 12:51 | Gastroenterology Progress Note ---
Date of Service February 11, 2022 Assessment & Plan Admission and Anticipated Discharge Date Admission Date: February 10, 2022 Supervising Physician Co-Signing Physician Notes Suspect her had a self limited diverticular bleed as source for rectal bleeding in the setting of being on plavix Prep today, npo after midnitie, colonoscopy tomorrow given he has never had one before. Subjective No acute event Reports no bleeding or belly pain today Is somewhat agreeable to colonoscopy tomorrow- never had one before Prep is being ordered for him. Review of Systems Review of Systems: All systems reviewed & are unremarkable except as noted in HPI & below Physical Exam Physical Exam: Well nourished male in nad Eyes: PERRL, conjunctivae normal, anicteric sclerae Respiratory: normal respiratory effort, lungs clear to auscultation Gastrointestinal (Abdomen): normal bowel sounds, soft, nontender, no hepatosplenomegaly Skin: no rashes, warm and dry Results & Data ([facility]) Vital Signs (Past 12 Hours) Vital Signs Temp Pulse Pulse Resp BP BP BP 02/11/22 11:27 36.7 C 70 18 104/60 02/11/22 11:00 02/11/22 07:19 36.3 C L 68 71 15 94/65 L 02/11/22 05:44 36.7 C 69 16 96/63 L 02/11/22 04:58 36.5 C 73 20 115/60 02/11/22 03:53 36.7 C 75 20 107/57 L 02/11/22 03:26 69 02/11/22 03:23 36.5 C 75 20 102/56 L 02/11/22 01:53 36.5 C 72 20 104/65 02/11/22 01:38 36.3 C L 71 14 91/51 L 02/11/22 01:23 36.4 C L 74 16 92/53 L 02/11/22 01:06 36.7 C 71 18 78/47 L 02/11/22 01:00 36.7 C 71 18 78/47 L 02/11/22 00:26 66 90/55 L Pulse Ox Pulse Ox 02/11/22 11:27 100 02/11/22 11:00 100 02/11/22 07:19 97 02/11/22 05:44 97 02/11/22 04:58 96 02/11/22 03:53 97 02/11/22 03:26 02/11/22 03:23 93 02/11/22 01:53 99 02/11/22 01:38 98 02/11/22 01:23 96 02/11/22 01:06 97 02/11/22 01:00 97 02/11/22 00:26 Laboratory Results Hgb has been stable at 9 after transfusion
[2022-02-11] MEDS ORDERED: LIDOCAINE 2% JELLY 5 ML TUBE EXT ONE (14:24)
[2022-02-11] MEDS: LAVAGE SOLUTION 4000ML PO SCH (17:49)
[2022-02-11] MEDS ORDERED: FUROSEMIDE INJ 20 MG/2 ML VIAL IV ONE (18:22)
--- NOTE | 2022-02-11 18:22 | Hospitalist Progress Note ---
Date of Service February 11, 2022 Assessment & Plan (1) Acute blood loss anemia: (2) Acute GI bleeding: Plan: Patient presenting from [facility] for evaluation of large amount of bright bleeding per rectum In the ED, found to be hypotensive with Hgb 5.2 Possible due to diverticular bleed CT abd/pelvisMild thickening of the distal rectum. Colonic diverticulosis. Diffuse edematous state demonstrated by mesenteric edema, perinephric edema, trace ascites, and body wall edema. FOBT positive on admission Transfused 5 units PRBC so far during the hospital course Hgb 9.7 this morning Continue to hold plavix and aspirin gastro on board Plan for colonoscopy in am Bowel prep started at 5PM Continue clear liquid diet and NPO after midnight Continue PPI BID Continue monitor H/H (3) CAD (coronary artery disease), [place] coronary artery: Plan: Appears stable, no reports of chest pain s/p HERNANDEZ to distal LM and proximal LAD January 2021 (referred for CABG however patient opted for medical management) Continue to hold ASA and Plavix, continue statin and beta-vince Consider cardiology consult regarding the use of Plavix going forward in the setting of severe GI bleeding (4) Ischemic cardiomyopathy: Plan: Last echo with EF 25 to 30% Appears euvolemic, Will give additional lasix 20mg IV today Home dose spironolactone and Lasix on hold Monitor volume status closely, resume diuretics as able (5) Diabetes mellitus: Plan: Hgb A1c 6.5 09/2021 Continue to hold oral agents and utilize NovoLog per protocol while hospitalized Continue monitor BS (6) PAD (peripheral artery disease): (7) History of right common carotid artery stent placement: (8) History of CVA with residual deficit: Plan: Continue to holding ASA and Plavix due to GI bleed continue statin (9) HTN (hypertension): Plan: lisinopril on hold due to hypotension (10) DVT prophylaxis: Plan: SCDs in the setting of GI bleeding PT/OT eval Admission and Anticipated Discharge Date Admission Date: February 10, 2022 Subjective Pt was seen and examined for anemia/gi bleed Lying in bed with no acute distress Pt said that he feels ok denies any chest pain, palpitation, dizziness and SOB Review of Systems Review of Systems: All systems reviewed & are unremarkable except as noted in Subjective Physical Exam Physical Exam: General- No acute distress Head- atraumatic Eyes- PERRL, EOMI, ENT- oropharynx clear Neck- supple, no JVD Lungs- clear to auscultation Heart- regular rhythm; no murmur Abdomen- normal bowel sounds, soft, nontender Extremities- no calf tenderness, Left BKA, +RLE edema, small wound at the right heal with minimal drainage Neuro- alert, oriented x 3; PERRL, EOMI; no facial palsy; no dysarthria Skin- warm & dry Results & Data Results & Data ([facility]) Vital Signs (Past 12 Hours) Vital Signs Temp Pulse Pulse Resp BP Pulse Ox Pulse Ox 02/11/22 15:09 85 02/11/22 15:04 36.6 C 81 20 113/55 L 100 02/11/22 11:27 36.7 C 70 18 104/60 100 02/11/22 11:00 100 02/11/22 07:19 36.3 C L 68 71 15 94/65 L 97 (1) Diabetes mellitus Diabetes mellitus complication status: with other specified complication Diabetes mellitus termite helper insulin use: unspecified termite helper insulin use status Diabetes mellitus type: other specified (including RODRI) Qualified Code(s): E13.69 - Other specified diabetes mellitus with other specified complication
[2022-02-11] MEDS: ATORVASTATIN 40 MG TAB PO SCH (20:28)
[2022-02-11] MEDS ORDERED: TAMSULOSIN HCL 0.4 MG CAP PO SCH (21:00)
[2022-02-11] MEDS ORDERED: bisacodyL 5 MG TABEC PO ONE (21:00)
[2022-02-11 22:37] LABS: Hematocrit (blood only) 27.3 % (42-52); Hemoglobin 9.2 g/dL (14.0-18.0)
[2022-02-12] MEDS: LAVAGE SOLUTION 4000ML PO SCH (01:06)
[2022-02-12 06:03] LABS: Hematocrit (blood only) 27.9 % (42-52); Hemoglobin 9.4 g/dL (14.0-18.0); Mean Corpuscular Hemoglobin 29.1 pg (25-34); Mean Corpuscular Hgb Conc 33.7 g/dL (32-36); Mean Corpuscular Volume 86.4 fL (80-100); Platelet Count 165 K/uL (130-400); RDW Coefficient of Variation 16.9 % (11.5-14.5); RDW Standard Deviation 53.6 fL (36.4-46.3); Red Blood Count 3.23 M/uL (4.7-6.1); White Blood Count 5.61 K/uL (4.8-10.8)
[2022-02-12 06:31] LABS: BUN Creatinine Ratio 21.6 (10-20); Calcium 7.8 mg/dl (8.5-10.1); Est GFR (African American) 85.9 ml/min; Est GFR (Non-African American) 74.1 ml/min; Potassium 3.7 mmol/L (3.5-5.1)
[2022-02-12] MEDS: INSULIN ASPART PER UNIT SC SCH ×4 (07:31→20:40)
[2022-02-12] MEDS ORDERED: LIDOCAINE 2% 2 ML VIAL/AMP(20MG/ML) INFIL ONE (08:18)
[2022-02-12] MEDS ORDERED: PROPOFOL IV EMULSION 10 MG/ML 20 ML VIAL IV ONE ×2 (08:18→10:30)
[2022-02-12] MEDS: PANTOprazole 40 MG in SYRINGE 0 ML IV SCH ×2 (08:23→20:39)
[2022-02-12] MEDS: MULTIVITAMIN TAB PO SCH (10:17)
[2022-02-12] MEDS: METOPROLOL SUCC 25MG EXT REL TAB PO SCH (10:17)
[2022-02-12] MEDS: FERROUS SULFATE 325 MG TAB PO SCH ×3 (10:25→20:39)
--- NOTE | 2022-02-12 10:34 | History & Physical Bridge Note ---
Date of Service February 12, 2022 History & Physical Bridge Note I have examined the patient, reviewed the History & Physical and in the interval since the performance of the History & Physical I have noted the following changes of clinical significance: no changes noted
--- NOTE | 2022-02-12 10:42 | Anesthesiology Consultation ---
Date of Service February 12, 2022 Assessment & Plan (1) Encounter for pre-operative examination: History Surgery Operation Date: 02/12/22 16:30 Proposed Procedures p Colonoscopy Dr. Paul Miller MD Height/Weight Height: 5 ft 11 in Weight: 91.6 kg Allergies Allergy/AdvReac Type Severity Reaction Status Date / Time No Known Allergies Allergy Verified 02/10/22 08:40 Medications Home Medications Medication Instructions Recorded Confirmed Last Taken aspirin 81 mg tablet,delayed 81 mg PO QAM 06/09/21 02/10/22 02/09/22 release atorvastatin 80 mg tablet (Lipitor) 80 mg PO PM 06/09/21 02/10/22 02/09/22 clopidogrel 75 mg tablet (Plavix) 75 mg PO QAM 06/09/21 02/10/22 02/09/22 folic acid 3 mg-vit B complex with 1 tab PO QAM 06/09/21 02/10/22 02/09/22 C-selenium 70 mcg-zinc 15 mg tablet gabapentin 100 mg capsule 200 mg PO BID 30 Days #120 cap 06/22/21 02/10/22 02/09/22 ferrous sulfate 325 mg (65 mg 325 mg PO TID 09/11/21 02/10/22 02/09/22 iron) tablet metformin 850 mg tablet 850 mg PO BID 09/11/21 02/10/22 02/09/22 pantoprazole 40 mg tablet,delayed 40 mg PO DAILY@0730 09/11/21 02/10/22 02/09/22 release docusate sodium 100 mg capsule 100 mg PO BID PRN #60 cap 09/21/21 02/10/22 Unknown furosemide 40 mg tablet 40 mg PO QAM #30 tab 09/21/21 02/10/22 02/09/22 multivitamin with folic acid 400 1 tab PO QAM #30 tab 09/21/21 02/10/22 02/09/22 mcg tablet (Daily-Cesar (with folic acid)) polyethylene glycol 3350 17 gram 17 g PO DAILY PRN #30 ea 09/21/21 02/10/22 Unknown oral powder packet (Miralax) lisinopril 20 mg tablet 20 mg PO QAM #30 tab 11/17/21 02/10/22 02/09/22 metoprolol succinate 50 mg 100 mg PO DAILY@1000 02/10/22 02/10/22 02/09/22 tablet,extended release 24 hr spironolactone 25 mg tablet 25 mg PO QAM 02/10/22 02/10/22 02/09/22 tamsulosin 0.4 mg capsule 0.4 mg PO PM 02/10/22 02/10/22 02/09/22 Active Medications Generic Name Dose Route Start Last Admin Trade Name Freq PRN Reason Stop Dose Admin Atorvastatin Calcium 80 mg 02/10/22 21:00 02/11/22 20:28 Atorvastatin 40 Mg Tab PO 03/12/22 20:59 80 mg HS REESE Administration Dextrose 25 - 50 ml 02/10/22 10:53 02/12/22 07:40 Dextrose 50% 50 Ml Syringe IV 03/12/22 10:52 25 ml UD PRN Administration Hypoglycemia Protocol Protocol Ferrous Sulfate 325 mg 02/10/22 10:53 02/12/22 10:25 Ferrous Sulfate 325 Mg Tab PO 03/12/22 10:52 Not Given TID REESE Gabapentin 200 mg 02/10/22 10:53 02/10/22 20:06 Gabapentin 100 Mg Cap PO 03/12/22 10:52 200 mg BID REESE Administration Pantoprazole Sodium 40 mg/ 10 mls @ 5 mls/min 02/10/22 21:00 02/12/22 08:23 Syringe IV 03/12/22 20:59 5 mls/min BID REESE Administration Insulin Aspart 0 units 02/10/22 11:30 02/12/22 07:31 Insulin Aspart Per Unit SC 03/12/22 11:29 Not Given ACHS REESE Metoprolol Succinate 25 mg 02/12/22 09:00 02/12/22 10:17 Metoprolol Succ 25mg Ext Rel Tab PO 03/14/22 08:59 Not Given QAM REESE Multivitamins 1 tab 02/10/22 10:53 02/12/22 10:17 Multivitamin Tab PO 03/12/22 10:52 Not Given QAM REESE Polyethylene Glycol/Electrolytes 8 dose 02/11/22 17:00 02/12/22 01:06 Lavage Solution 4000ml PO 02/12/22 16:59 8 dose 0100,1700 REESE Administration NPO Date Last Intake of Fluids: 02/12/22 Time Last Intake of Fluids: 03:00 Last Intake of Fluids Comment: prep Date Last Intake of Solids: 02/09/22 Past Medical History Medical History Anemia CAD (coronary artery disease), [place] coronary artery 02/12/2021: PCI with HENRANDEZ to the distal left main and proximal LAD. Additional distal LAD disease. Large non dominant left circumflex with moderate diffuse disease. Long subtotal occlusion of the distal vessel. Large dominant RCA with focal 70-80% lesion in the mid vessel. Diffuse chep-[id number] distal disease. Carotid stenosis Diabetes mellitus History of CVA with residual deficit History of left below knee amputation Hyperlipidemia LDL goal <70 Ischemic cardiomyopathy LBBB (left bundle branch block) Mitral regurgitation NSTEMI (non-ST elevated myocardial infarction) Peripheral vascular disease Symptomatic anemia Past Family History Family History Other Diabetes Past Surgical History Surgical History History of coronary artery stent placement History of right common carotid artery stent placement Status post below-knee amputation of left lower extremity Dr English 06/2021 Social History Smoking Status: Former smoker tobacco type: cigarettes Do You Dip or Chew Tobacco: No Smoking End Date: 1984 Hx Alcohol Use: No Alcohol type: beer alcohol intake frequency: holidays/special occasions only Alcohol Intake Frequency Comment: pt states last beer was new years sagar- does not drink Hx Substance Use: No substance use type: does not use Physical Exam Vital Signs Last Vital Signs Temp 36.2 C L 02/12/22 10:16 Pulse 73 02/12/22 10:16 Resp 18 02/12/22 10:16 BP 131/82 02/12/22 10:16 Pulse Ox 99 02/12/22 10:16 Testing Laboratory Results 02/12/22 05:29 02/12/22 05:29 PT 14.3 Seconds (9.0-12.0) H 02/11/22 06:55 INR 1.4 (0.9-1.1) H 02/11/22 06:55 APTT 28.3 Seconds (21.0-31.0) 02/10/22 06:13 Urine Color Dark Yellow 02/11/22 07:35 Urine Appearance Clear (Clear) 02/11/22 07:35 Urine pH 5.5 (4.5-7.5) 02/11/22 07:35 Ur Specific [place] 1.028 (1.000-1.030) 02/11/22 07:35 Urine Protein Negative (Negative) 02/11/22 07:35 Urine Glucose (UA) Negative (Negative) 02/11/22 07:35 Urine Ketones Negative (Negative) 02/11/22 07:35 Urine Nitrite Negative (Negative) 02/11/22 07:35 Ur Leukocyte Esterase Negative (Negative) 02/11/22 07:35 Blood Type O Positive 02/10/22 06:13 Antibody Screen NEGATIVE 02/10/22 06:13 02/12/22 02/12/22 09:57 07:12 POC Glucose 94 76
--- NOTE | 2022-02-12 11:26 | GI REPORT ---
Patient Name: Sharan Coffman Procedure Date: 02/12/2022 10:31 AM Date of : 1950 Admit Type: Inpatient Age: 71 Gender: Male Attending MD: Sirisha Miller M.d. Procedure: Colonoscopy Providers: Sirisha Miller M.d. Referring MD: EDEN GARCIA Indications: Rectal bleeding Medicines: See anesthesia record Complications: No immediate complications. Estimated Blood Loss: Estimated blood loss: none. Procedure: Pre-Anesthesia Assessment: - ASA Grade Assessment: III - A patient with severe systemic disease. After I obtained informed consent, the scope was passed under direct vision. Throughout the procedure, the patient's blood pressure, pulse, and oxygen saturations were monitored continuously. The Colonoscope was introduced through the anus and advanced to the cecum, identified by appendiceal orifice and ileocecal valve. The colonoscopy was performed without difficulty. The patient tolerated the procedure well. The quality of the bowel preparation was fair. Findings: The colon (entire examined portion) appeared normal. Multiple small and large-mouthed diverticula were found in the sigmoid colon, descending colon and ascending colon. A 10 mm polyp was found in the sigmoid colon. The polyp was sessile. The polyp was removed with a hot snare. Resection was complete, but the polyp tissue was not retrieved. The exam was otherwise without abnormality on direct and retroflexion views. Impression: - Preparation of the colon was fair. - The examined colon appeared normal. - Diverticulosis in the ascending, descending, and sigmoid colon. - One 10 mm polyp in the sigmoid colon, removed with a hot snare. Complete resection. Polyp tissue not retrieved. - The examination was otherwise normal on direct and retroflexion views. Recommendation: - Suspect her had a self limited diverticular bleed. - Return to the floor, soft diet advance as tolerated. - Resume Plavix tomorrow. Yoel Garg M.d. 02/12/2022 11:25:24 AM This report has been signed electronically. Note Initiated On: 02/12/2022 10:31 AM Number of Addenda: 0 I attest to the content of the Intraoperative Record and orders documented therein, exceptions below {[id number]}
--- NOTE | 2022-02-12 11:27 | Communication Note ---
Date of Service: February 12, 2022 Colonoscopy completed Fair prep Pepper-colonic diverticulosis- most prominent in the sigmoid colon one polyp removed from the sigmoid Advance diet as tolerated, resume plavix Ok to id home from a gi perspective - suspect he had a self limited diverticular bleed.
--- NOTE | 2022-02-12 13:38 | Anesthesiology Progress Note ---
Date of Service February 12, 2022 Anesthesia Post Procedure Vital Signs Vital Signs: Temp Pulse Pulse Resp BP Pulse Ox 02/12/22 12:18 36.5 C 69 18 126/82 99 02/12/22 11:57 67 18 127/75 98 02/12/22 11:42 66 18 113/65 97 02/12/22 11:27 67 12 93/55 L 96 02/12/22 10:16 36.2 C L 73 18 131/82 99 02/12/22 07:13 36.7 C 71 17 120/72 97 02/12/22 06:23 73 02/12/22 06:15 74 02/12/22 03:06 36.7 C 72 16 122/77 97 02/12/22 00:07 36.8 C 75 18 99/63 L 100 02/11/22 19:45 36.6 C 81 18 137/64 99 02/11/22 15:09 85 02/11/22 15:04 36.6 C 81 20 113/55 L 100 Transfer of Care Handoff Completed per policy Notes Mental Status: alert / awake / arousable and participated in evaluation Patient Amnestic to Procedure: Yes Nausea / Vomiting: adequately controlled Pain: adequately controlled Airway Patency, RR, SpO2: stable & adequate BP & HR: stable & adequate Hydration State: stable & adequate Anesthetic Complications: no major complications apparent and Pt Satisfied with anesthetic care
[2022-02-12] MEDS: CLOPIDOGREL BISULFATE 75 MG TAB PO SCH (14:03)
--- NOTE | 2022-02-12 14:42 | Hospitalist Progress Note ---
Date of Service February 12, 2022 Assessment & Plan (1) Acute blood loss anemia: (2) Acute GI bleeding: Plan: Patient presenting from [facility] for evaluation of large amount of bright bleeding per rectum In the ED, found to be hypotensive with Hgb 5.2 Possible due to diverticular bleed CT abd/pelvisMild thickening of the distal rectum. Colonic diverticulosis. Diffuse edematous state demonstrated by mesenteric edema, perinephric edema, trace ascites, and body wall edema. FOBT positive on admission Transfused 5 units PRBC so far during the hospital course Hgb 9.7 this morning gastro on board S/P Colonoscopy was done showed one 10 mm polyp in the sigmoid colon. Complete resection. Polyp tissue not retrieved. OK from Gastro to resume plavix and aspirin Follow up with GI to repeat colonoscopy in 1 year Diet advanced as tolerated Will transition to PO PPI Continue monitor H/H (3) CAD (coronary artery disease), [place] coronary artery: Plan: Appears stable, no reports of chest pain s/p HERNANDEZ to distal LM and proximal LAD January 2021 (referred for CABG however patient opted for medical management) Continue to hold ASA and Plavix, continue statin and beta-vince Outpatient cardiology follow up regarding the use of Plavix and aspirin going forward in the setting of severe GI bleeding Ok from GI to resume Plavix and aspirin as per GI (4) Ischemic cardiomyopathy: Plan: Last echo with EF 25 to 30% Appears euvolemic, Home dose spironolactone and Lasix was on hold Monitor volume status closely Will resume diuretics (5) Diabetes mellitus: Plan: Hgb A1c 6.5 09/2021 Continue to hold oral agents and utilize NovoLog per protocol while hospitalized Continue monitor BS (6) PAD (peripheral artery disease): (7) History of right common carotid artery stent placement: (8) History of CVA with residual deficit: Plan: Continue to holding ASA and Plavix due to GI bleed continue statin (9) HTN (hypertension): Plan: lisinopril on hold due to hypotension (10) DVT prophylaxis: Plan: SCDs in the setting of GI bleeding PT/OT eval Admission and Anticipated Discharge Date Admission Date: February 10, 2022 Subjective Pt was seen and examined for anemia/gi bleed Lying in bed with no acute distress Pt said that he feels ok He just got back from colonoscopy and tolerated well denies any chest pain, palpitation, dizziness and SOB Review of Systems Review of Systems: All systems reviewed & are unremarkable except as noted in Subjective Physical Exam Physical Exam: General- No acute distress Head- atraumatic Eyes- PERRL, EOMI, ENT- oropharynx clear Neck- supple, no JVD Lungs- clear to auscultation Heart- regular rhythm; no murmur Abdomen- normal bowel sounds, soft, nontender Extremities- no calf tenderness, Left BKA, +RLE edema, small wound at the right heal with minimal drainage Neuro- alert, oriented x 3; PERRL, EOMI; no facial palsy; no dysarthria Skin- warm & dry Results & Data Results & Data ([facility]) Vital Signs (Past 12 Hours) Vital Signs Temp Pulse Pulse Resp BP Pulse Ox 02/12/22 12:18 36.5 C 69 18 126/82 99 02/12/22 11:57 67 18 127/75 98 02/12/22 11:42 66 18 113/65 97 02/12/22 11:27 67 12 93/55 L 96 02/12/22 10:16 36.2 C L 73 18 131/82 99 02/12/22 07:13 36.7 C 71 17 120/72 97 02/12/22 06:23 73 02/12/22 06:15 74 02/12/22 03:06 36.7 C 72 16 122/77 97 (1) Diabetes mellitus Diabetes mellitus complication status: with other specified complication Diabetes mellitus 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
[2022-02-12] MEDS: ATORVASTATIN 40 MG TAB PO SCH (20:39)
[2022-02-12] MEDS ORDERED: TAMSULOSIN HCL 0.4 MG CAP PO SCH (21:00)
[2022-02-12] MEDS ORDERED: traMADol HCL 50 MG TABLET PO PRN (21:07)
[2022-02-13 06:10] LABS: Hematocrit (blood only) 28.9 % (42-52); Hemoglobin 9.5 g/dL (14.0-18.0); Mean Corpuscular Hemoglobin 28.7 pg (25-34); Mean Corpuscular Hgb Conc 32.9 g/dL (32-36); Mean Corpuscular Volume 87.3 fL (80-100); Mean Platelet Volume 8.7 fL (7.4-10.4); Platelet Count 166 K/uL (130-400); RDW Coefficient of Variation 16.7 % (11.5-14.5); RDW Standard Deviation 52.7 fL (36.4-46.3); Red Blood Count 3.31 M/uL (4.7-6.1); White Blood Count 5.06 K/uL (4.8-10.8)
[2022-02-13 06:32] LABS: BUN Creatinine Ratio 15.3 (10-20); Calcium 7.7 mg/dl (8.5-10.1); Creatinine Clr Calc Pharmacy 81.2 ml/min; Est GFR (African American) 90.2 ml/min; Est GFR (Non-African American) 77.8 ml/min; Potassium 3.9 mmol/L (3.5-5.1)
[2022-02-13] MEDS: FERROUS SULFATE 325 MG TAB PO SCH (08:18)
[2022-02-13] MEDS: METOPROLOL SUCC 25MG EXT REL TAB PO SCH (08:18)
[2022-02-13] MEDS: PANTOprazole 40 MG in SYRINGE 0 ML IV SCH (08:18)
[2022-02-13] MEDS: CLOPIDOGREL BISULFATE 75 MG TAB PO SCH (08:18)
[2022-02-13] MEDS: MULTIVITAMIN TAB PO SCH (08:18)
[2022-02-13] MEDS: INSULIN ASPART PER UNIT SC SCH ×2 (08:30→12:36)
[2022-02-13] MEDS ORDERED: FUROSEMIDE 40 MG TAB PO SCH (09:00)
--- NOTE | 2022-02-13 10:53 | Discharge Summary ---
Date of Service February 13, 2022 Admission HPI Per Admitting Provider 71-year-old male with PMH DM type II, HTN, history of CVA, left BKA, multivessel CAD s/p HERNANDEZ to distal LM and proximal LAD January 2021 (referred for CABG however patient opted for medical management), ischemic cardiomyopathy EF 25 to 30%, who presents to the ED from [facility] for evaluation of large amount of bright red bleeding per rectum. History obtained from review of records and shelter staff. History from patient obtained from Dr. Morrison. See addendum for further details. Per the nurse at [facility], patient was noted to have a small amount of bright red blood in his brief yesterday. This was felt to be secondary to hemorrhoidal bleeding. This morning, patient was calling out for help and he was found to be " covered in blood" and a large amount of bright red blood in his brief. Patient had altered mental status and was sent to the ED for further evaluation. In the ED, patient was found to be hypotensive, BP 81/54. Labs showed significant anemia with Hgb 5.2. Patient was emergently given 3 unit PRBC. He was also given IVF and started on a Protonix drip. BP and mental status improved. Admission Exam Per Admitting Provider General- No acute distress Head- atraumatic Eyes- PERRL, EOMI, ENT- oropharynx clear Neck- supple, no JVD Lungs- clear to auscultation Heart- regular rhythm; no murmur Abdomen- normal bowel sounds, soft, nontender Extremities- no calf tenderness, Left BKA, +RLE edema Neuro- alert, oriented x 3; PERRL, EOMI; no facial palsy; no dysarthria Skin- warm & dry Principal Diagnosis Acute GI Bleeding - likely diverticular Anemia due to acute blood loss Discharge Exam Gen: WD/WN, NAD, A&O x3 HEENT: Normocephalic, atraumatic, conjunctivae moist, sclerae anicteric, mucous membranes moist. Lung: Clear to Auscultation bilaterally, no wheezes/rales/rhonchi Heart: Regular rate, regular rhythm, no murmurs, rubs, or gallops Abdomen: Soft, NT, ND +BS x 4 Extremities: L BKA, trace RLE edema Skin: Warm, no rash, negative turgor. Discharge Data Allergies Allergy/AdvReac Type Severity Reaction Status Date / Time No Known Allergies Allergy Verified 02/10/22 08:40 Consultations 02/10/22 07:24 ED Decision to Admit Stat 02/10/22 10:06 Consult Gastroenterology Routine Procedures Performed Operation Date: 02/12/22 16:30 Actual Procedures p Colonoscopy Polypectomy - Sirisha Miller MD Ordered Studies Abdomen/Pelvis CT 02/10/22 06:[address] WITH IV CONTRAST CT DOSE: 778.40 mGy.cm HISTORY: GI bleed. TECHNIQUE: Multiaxial CT images of the abdomen and pelvis were performed following the use of intravenous contrast. A dose lowering technique was utilized adhering to the principles of ALARA. COMPARISON STUDY: Abdomen and pelvis CT 06/09/2021. FINDINGS: The heart is enlarged. Moderate right and small left pleural effusions. The right pleural effusion results in near complete compressive atelectasis of the right lower lobe. Stable 4 mm nodule within the right middle lobe on image 35. No pneumoperitoneum. No pneumatosis. Degenerative changes within the lumbar spine. No fractures within the visualized osseous structures. Moderate body wall edema is noted. Stable hypodense lesions within the liver with the largest in the posterior segment of the right hepatic lobe measuring 3.9 cm. This favors a hemangioma given the discontinuous peripheral nodular enhancement. The main portal vein is patent. A few small gallstones are noted. Stable 2.3 cm exophytic hypodense lesion within the spleen. This is likely benign. The adrenal glands and pancreas unremarkable. Moderate bilateral cortical renal scarring. No hydronephrosis. Stable bilateral renal hypodense lesions. These likely represent cysts. Moderate bilateral perinephric edema with moderate mesenteric edema and trace ascites. Calcified plaque within the normal caliber abdominal aorta. Stable prominent retroperitoneal lymph nodes. The bladder is unremarkable. Mild thickening of the distal rectum best seen image 434.. Colonic diverticulosis. No evidence for acute diverticulitis. The colon is decompressed resulting in suboptimal evaluation. No definite bowel wall thickening involving the colon or small bowel. No evidence for bowel obstruction. Normal appendix. IMPRESSION: 1. Mild thickening of the distal rectum. This nonspecific but could represent a mild proctitis or possibly hemorrhoids. 2. Colonic diverticulosis. No evidence for acute diverticulitis. 3. No evidence for bowel obstruction. 4. Normal appendix. 5. Moderate right and small left pleural effusions which have developed in the interval. 6. Diffuse edematous state demonstrated by mesenteric edema, perinephric edema, trace ascites, and body wall edema. This has developed in the interval. 7. Cholelithiasis. 8. Additional findings as described above. ACT 112: Negative or not required by law. Electronically signed by: Clarence De La Vega M.D. 02/10/2022 8:02 AM Chest X-Ray 02/10/22 19:33 XR chest 1V portable HISTORY: weakness, gi bleed COMPARISON: Chest 09/11/2021. FINDINGS: No pneumothorax. The heart remains enlarged. Moderate right and small left pleural effusions are again noted. No evidence for pulmonary edema. Consolidation within the right lung base favors atelectasis from the pleural effusion. IMPRESSION: No significant change in the cardiomegaly and bilateral pleural effusions. ACT 112: Negative or not required by law. Electronically signed by: Clarence De La Vega M.D. 02/10/2022 8:11 PM Hospital Course (1) Acute blood loss anemia: (2) Acute GI bleeding: This is a 71-year-old male who has significant past medical history of CAD, ischemic cardiomyopathy, T2DM, history of CVA, PAD, history of right carotid artery stent placement, HTN who presented from [facility] for evaluation of large amount of bright bleeding per rectum. In the ED, found to be hypotensive with Hgb 5.2. [place] to be due to diverticular bleed. CT abd/pelvisrevealed mild thickening of the distal rectum, Colonic diverticulosis, Diffuse edematous state demonstrated by mesenteric edema, perinephric edema, trace ascites, and body wall edema. He was started on IV Protonix. Patient required 5 units transfusion of packed red blood cells to optimize hemoglobin. Gastroenterology was consulted and he underwent colonoscopy. He had a fair prep and was found to have a 10 mm polyp in the sigmoid colon which was resected. GI recommends re peat colonoscopy in 1 year. It was also recommended patient continue on antiplatelet medications for underlying CAD and history of CVA. He was transitioned to oral Protonix. Of significance patient underwent HERNANDEZ to distal LM and proximal LAD 1 year ago. He was referred for CABG however he opted for medical management. He did suffer an ischemic cardiomyopathy and his regimen included aspirin, Plavix, statin, metoprolol, spironolactone and Lasix. We will resume home medications. On day of discharge patient was in good spirits and overall felt well. He felt ready to be discharged back to [facility]. His vitals remained stable and he was tolerating a regular diet. He was passing flatulence, but has not had a bowel movement since bowel prep. He had no further bright red blood per rectum. (3) CAD (coronary artery disease), [place] coronary artery: (4) Ischemic cardiomyopathy: (5) Diabetes mellitus: (6) PAD (peripheral artery disease): (7) History of right common carotid artery stent placement: (8) History of CVA with residual deficit: (9) HTN (hypertension): (10) DVT prophylaxis: Total Time Total Time Spent Total Time Spent (In Minutes): 45 minutes Discharge Plan Discharge Items Patient Disposition: Personal Detention Reason For Visit: GI BLEED Discharge Diagnosis: Acute GI Bleeding - likely diverticular Anemia due to acute blood loss Condition on Discharge: Good Activity: Resume your previous activity Bathing: No limitations Weightbearing: Full weightbearing Non-emergency contact: Primary Care Provider Call non-emergency contact if: you have any medication questions, your symptoms worsen, you have a fever and your temperature is above 101 Follow-up/Referrals: [facility] MACIEL [Primary Care Provider] - Diet: Carb Consistent or DM2 and Heart Healthy Addtl Attending Provider Instructions: MEDICATION CHANGES: Please continue all medications as prescribed. NEW MEDICATION Pantoprazole 40mg once daily SUMMARY OF TEST RESULTS: You are admitted to hospital secondary to large amount of bright bleeding per rectum. You were found to be anemic with an initial hemoglobin of 5.2. You required 5 units of packed red blood cells and for transfusion. You underwent colonoscopy which showed 1- 10 mm polyp in sigmoid colon with complete resection. It is recommended repeating colonoscopy in 1 year. Your hemoglobin was 9.5 on discharge. Please follow up with [facility] at discharge to determine if necessary to continue both aspirin and plavix given your significant GI Bleed. PENDING TEST RESULTS: None RECOMMENDATIONS FOR FOLLOW-UP: Please follow up with Primary Care Provider at [facility]. You will need a repeat colonoscopy in 1 year. Recommend repeat cbc, bmp in on week to monitor hemoglobin and kidney function. OTHER INSTRUCTIONS: Seek medical attention if you have: * temperature above 101 * chest pain or trouble breathing * abdominal pain, nausea, vomiting * diarrhea, dark stools or bloody stools * any unanswered questions or concerns Call 911 if symptoms are severe. Please take good care of yourself. It has been a pleasure taking care of you. Please take care of yourself. If you have any questions regarding your recent hospitalization please contact [facility] and request Mohamuddimitrisclara Osorioist @ [phone]. Irene Carmichael PA-C Pending Studies at Discharge: No Stand-Alone Forms: [facility], Smoking Cessation Skilled Items Patient informed of condition?: Yes DNR: No Discharge Level of Care: Other Communicable Disease: No Discharge Prognosis: Stable Lines: None Urinary Catheter: No Medications and DC Order Prescriptions: New pantoprazole 40 mg tablet,delayed release (DR/EC) 40 mg PO DAILY Qty: 30 RF: 0 Continued lisinopril 20 mg tablet 20 mg PO QAM Qty: 30 RF: 3 metoprolol succinate 50 mg tablet extended release 24 hr 100 mg PO DAILY@1000 RF: 0 spironolactone 25 mg tablet 25 mg PO QAM RF: 0 tamsulosin 0.4 mg capsule 0.4 mg PO PM RF: 0 atorvastatin [Lipitor] 80 mg tablet 80 mg PO PM RF: 0 clopidogrel [Plavix] 75 mg tablet 75 mg PO QAM RF: 0 aspirin 81 mg Tablet,Delayed Release (Dr/Ec) 81 mg PO QAM RF: 0 folic acid-B bpug-B-vbjeg-zinc 3-70-15 mg-mcg-mg Tablet 1 tab PO QAM RF: 0 gabapentin 100 mg Capsule 200 mg PO BID 30 Days Qty: 120 RF: 1 metformin 850 mg Tablet 850 mg PO BID RF: 0 pantoprazole 40 mg Tablet,Delayed Release (Dr/Ec) 40 mg PO DAILY@0730 RF: 0 ferrous sulfate 325 mg (65 mg iron) Tablet 325 mg PO TID RF: 0 furosemide 40 mg Tablet 40 mg PO QAM Qty: 30 RF: 0 polyethylene glycol 3350 [Miralax] 17 gram Powder In Packet 17 g PO DAILY PRN (Reason: constipation) Qty: 30 RF: 0 docusate sodium 100 mg Capsule 100 mg PO BID PRN (Reason: Constipation) Qty: 60 RF: 0 multivitamin with folic acid [Daily-Cesar (with folic acid)] 400 mcg Tablet 1 tab PO QAM Qty: 30 RF: 0 Discharge Orders: Discharge Order (Routine); Ordered 02/13/22 Ordered By: Irene Carmichael Admission Data Admit Date/Time: 02/10/22 08:20 Attending Provider: Amy Morrison Admit Provider: Amy Morrison [facility] Other Providers: Amy Morrison ; Sirisha Miller ; Irene Carmichael
== END 2022-02-13 13:28 | disposition home or self-care (01) | DRG 378 ==
LOC: ED 05:58 → 2E 08:20 → 3E 02-12 23:04

== ENCOUNTER 2022-07-23 08:21 | Inpatient (IN) ==
[2022-07-23] MEDS ORDERED: NovoLIN-R INSULIN PER UNIT CHARGE ONE ×3 (08:37→08:40)
[2022-07-23] MEDS ORDERED: DEXTROSE 50% 50 ML SYRINGE IV ONE ×2 (08:38→08:41)
[2022-07-23] MEDS ORDERED: INSULIN ASPART PER UNIT ONE (08:39)
[2022-07-23 08:40] LABS: Basophils # (auto) 0.02 K/uL (0-0.2); Basophils % (auto) 0.3 %; Eosinophils # (auto) 0.01 K/uL (0-0.50); Eosinophils % (auto) 0.2 %; Hematocrit (blood only) 30.5 % (40.1-51.0); Hemoglobin 9.4 g/dl (14.0-18.0); Immature Granulocytes # (auto) 0.22 K/uL (0.00-0.02); Immature Granulocytes % (auto) 3.8 %; Lymphocytes # (auto) 0.66 K/uL (1.2-3.4); Lymphocytes % (auto) 11.5 %; Mean Corpuscular Hemoglobin 31.8 pg (25.0-34.0); Mean Corpuscular Hgb Conc 30.8 g/dL (32.0-36.0); Mean Platelet Volume 8.8 fL (9.4-12.4); Monocytes # (auto) 0.15 K/uL (0.24-0.82); Monocytes % (auto) 2.6 %; Neutrophils % (auto) 81.6 %; Platelet Count 265 K/uL (130-400); RDW Coefficient of Variation 14.5 % (11.5-14.5); Red Blood Count 2.96 M/uL (4.63-6.08); White Blood Count 5.76 K/ul (4.8-10.8)
[2022-07-23] MEDS: CALCIUM GLUCONATE 1,000 MG/60 ML BAG IV SCH ×2 (08:40→09:18)
[2022-07-23] MEDS ORDERED: SODIUM BICARB 8.4% INJ 50 MEQ/50 ML SYR IV STA ×2 (08:41→09:32)
[2022-07-23] MEDS ORDERED: CALCIUM GLUCONATE 1000 MG/60 ML NSS IV ONE (08:41)
[2022-07-23] MEDS ORDERED: SODIUM CHLORIDE 0.9% 1000ML 2,000 ML IV ONE (08:41)
[2022-07-23 08:46] LABS: iSTAT Blood Urea Nitrogen > 140 mg/dl (7-18); iSTAT Carbon Dioxide < 5 mmol/L (24-31); iSTAT Chloride 101 mmol/L (101-112); iSTAT Glucose 153 mg/dl (70-99); iSTAT Hematocrit 28 % (42-52); iSTAT Hemoglobin 9.5 g/dl (14.0-18.0); iSTAT Ionized Calcium 1.22 mmol/l (1.12-1.32); iSTAT Potassium 7.5 mmol/L (3.3-5.0); iSTAT Sodium 128 mmol/L (135-144)
[2022-07-23] MEDS ORDERED: DEXTROSE 50% 50 ML SYRINGE IV STA (08:46)
[2022-07-23] MEDS ORDERED: CEFEPIME 2,000 MG/20 ML VIAL IV STA (08:58)
--- NOTE | 2022-07-23 08:58 | Emergency Department Note ---
Impression & Plan Acute hyperkalemia, Acute renal failure, Respiratory failure, Acute hypotension, Hypothermia ED Provider Note NAME: MELLY HURTADO AGE: 72 SEX: M : 1950 ARRIVES VIA: Ambulance INFORMANT: Patient, EMS ED PROVIDER(S): Billy Mcclure DO CHIEF COMPLAINT: Abdominal and back pain HPI: Patient is a 72-year-old male with past medical history of hypertension, i schemic cardiomyopathy, PAD, diabetes and CAD that presents the ER for back and belly pain. He admits to some nausea. He notes the pain is severe and a 10 out of 10. Denies any dysuria, urgency, or frequency but notes that he has to urinate but cannot. He was brought in by EMS and found to be slightly hypoxic and was placed on 4 L nasal cannula and he came up to 93%. He is a DNR/DNI per EMS. He lives at [place]. He was acting completely appropriately yesterday. ROS: See above HPI for pertinent positives & negatives. A total of 10 systems reviewed and were otherwise negative. PAST MEDICAL HISTORY:See Below PAST SURGICAL HISTORY:See Below FAMILY HISTORY:See Below SOCIAL HISTORY:See Below HOME MEDICATIONS:See Below ALLERGIES:See Below VITALS:See Below PHYSICAL EXAMINATION: GENERAL: Sitting up in bed, alert, significant distress holding abdomen, slightly confused EYE EXAM: normal conjunctiva. PERRL and EOM's grossly intact. OROPHARYNX: no exudate, no erythema, lips, buccal mucosa, and tongue normal and mucous membranes are moist NECK: supple, no nuchal rigidity, no adenopathy, non-tender LUNGS: Clear to auscultation. Normal chest wall mechanics HEART: no murmurs, S1 normal and S2 normal ABDOMEN: abdomen soft, non-tender, normo-active bowel sounds, no masses, no rebound or guarding. UPPER EXTREMITIES: upper extremities are grossly normal. LOWER EXTREMITIES: Lower extremity with a BKA NEURO EXAM: Alert oriented to person, cran and place but confused to yearial nerves II-XII grossly intact, normal speech. MEDICAL DECISION MAKING: Patient is a 72-year-old male brought in found to be hypotensive, hypoxic, and hypothermic with a wide-complex tachycardia. IVs were established blood work was obtained. I-STAT showed a creatinine of 17. Potassium was 7.5. With the wide-complex tachycardia patient was given 2 A of bicarb, 2 A of calcium glu conate, BSG was low and consequently was given an amp of D50. Patient was not given any insulin. Patient was given 2 L of normal saline due to the hypotension. Patient was started on Levophed. Discussed with family which include family friend as well as brother's as I was unable to contact Vinicius. All to confirm the patient is a DNR/DNI and would not want any large bore IV/access site/CBC. EH of less than 7 and a bicarb of 3. LFTs bilirubin was unremarkable. Lipase was elevated at 400. Lactate was significantly elevated at 14. Blood cultures were obtained and he was given IV antibiotics placed on the bear hugger. Levophed was titrated up. Systolic pressures came up into the low 100s. Discussed with the hospitalist this patient is a DNR/DNI and did not want any aggressive treatments. CT of the head chest abdomen pelvis showed possible gastric outlet obstruction. Allen was placed. Patient was monitored closely. He was discussed with the hospitalist admitted for further work-up and will likely be comfort care. Currently will not do any additional extensive measures until she is able to talk with her who is Quique's brother. Wide- complex tachycardia did narrow following treatment Triage Nursing notes reviewed. Limited review of prior medical records performed Vital Signs: reviewed and remarkable for tachycardic, hypoxic Differential diagnosis: Infection, dehydration, metabolic abnormality, hypo/hyperglycemia, electrolyte disturbance, anemia, hypoxia, cardiac sources, intracerebral event, toxicologic, neurologic, as well as other pathologies. ER treatment provided: See below Diagnostics interpreted by me: ECG: A. fib rate of 78 Left axis Wide QRS Inferior Q waves QTC 556 Cardiac Monitoring: An order was placed for continuous cardiac monitoring. The monitor shows a rate of 110 with AFIB rhythm. Laboratory studies: As stated above and show below. Imaging studies: CT of the head, chest abdomen pelvis as described above Consultation(s): Discussed with Coreen from [facility] service Procedures: none Critical Care: I have personally spent 75 minutes of critical care time in the direct management of this patient. This includes bedside care, interpretation of diagnostic studies, and testing, discussion with consultants, patient, and family members, and other required patient management activities. This 75 minutes is in excess of all separately billable procedures. Past Med/Surg History Medical History (Updated 07/23/22 @ 15:27 by Billy Mcclure DO) Acute GI bleeding Anemia CAD (coronary artery disease), [place] coronary artery 02/12/2021: PCI with HERNANDEZ to the distal left main and proximal LAD. Additional distal LAD disease. Large non dominant left circumflex with moderate diffuse disease. Long subtotal occlusion of the distal vessel. Large dominant RCA with focal 70-80% lesion in the mid vessel. Diffuse [id number] distal disease. Carotid stenosis Decompensated heart failure Diabetes mellitus Goals of care, counseling/discussion History of CVA with residual deficit History of left below knee amputation Hyperlipidemia LDL goal <70 Ischemic cardiomyopathy LBBB (left bundle branch block) Mitral regurgitation Multiple organ system failure NSTEMI (non-ST elevated myocardial infarction) Palliative care encounter Peripheral vascular disease Symptomatic anemia Surgical History History of coronary artery stent placement History of right common carotid artery stent placement Status post below-knee amputation of left lower extremity Dr English 06/2021 Family History Other Diabetes Social History Smoking Status: Former smoker Hx Alcohol Use: No Hx Substance Use: No Preferred Language: Danish Communication Ability: Effective Visual Impairment: Limited Hearing Ability: Normal Snuff Box Finisher Required: No Beliefs That Will Affect Care: None marital status: Single Current Living Situation: Longterm Current Living Situation Comment: [facility] current occupational status: retired Feels Safe at Home: Yes Assistive Devices: Wheelchair Allergies Allergies Allergy/AdvReac Type Severity Reaction Status Date / Time No Known Allergies Allergy Verified 05/22/22 09:20 Home Meds Home Medications Medication Instructions Recorded Confirmed aspirin 81 mg tablet,delayed 81 mg PO QAM 06/09/21 07/23/22 release clopidogrel 75 mg tablet (Plavix) 75 mg PO QAM 06/09/21 07/23/22 folic acid 3 mg-vit B complex with 1 tab PO QAM 06/09/21 07/23/22 C-selenium 70 mcg-zinc 15 mg tablet ferrous sulfate 325 mg (65 mg 325 mg PO TID 09/11/21 07/23/22 iron) tablet metformin 850 mg tablet 850 mg PO BID 09/11/21 07/23/22 metoprolol succinate 50 mg 100 mg PO DAILY@1000 02/10/22 07/23/22 tablet,extended release 24 hr spironolactone 25 mg tablet 25 mg PO QAM 02/10/22 07/23/22 atorvastatin 80 mg tablet (Lipitor) 40 mg PO PM 05/22/22 07/23/22 Previous Rx's Medication Instructions Recorded gabapentin 100 mg capsule 200 mg PO BID 30 days #120 caps 06/22/21 multivitamin with folic acid 400 1 tab PO QAM #30 tabs 09/21/21 mcg tablet (Daily-Cesar (with folic acid)) lisinopril 20 mg tablet 20 mg PO QAM #30 tabs 11/17/21 pantoprazole 40 mg tablet,delayed 40 mg PO DAILY #30 tabs 02/13/22 release bumetanide 2 mg tablet 2 mg PO DAILY #30 tabs 03/26/22 Results & Data (ED) Vital Signs Vital Signs - 24 hr 07/23/22 08:54 07/23/22 09:20 07/23/22 08:32 Pulse Rate 89 Pulse Rate from SpO2 Sensor Respiratory Rate 28 H Blood Pressure Blood Pressure [Right Arm] 79/46 L Blood Pressure Mean 89 Blood Pressure Mean [Right Arm] 57 Pulse Oximetry 91 Oxygen Delivery Method Nasal Cannula Oxygen Flow Rate 6 Sepsis Recent Fever Within 48 Hours No Sepsis New/Unexplained Change in Mental Status No Sepsis Action Taken by Nursing No Action Required 07/23/22 08:32 07/23/22 08:40 07/23/22 08:49 Pulse Rate 130 H 68 Pulse Rate from SpO2 Sensor Respiratory Rate 28 H 26 H Blood Pressure 79/46 L Blood Pressure [Right Arm] Blood Pressure Mean 57 Blood Pressure Mean [Right Arm] Pulse Oximetry Oxygen Delivery Method Oxygen Flow Rate Sepsis Recent Fever Within 48 Hours Sepsis New/Unexplained Change in Mental Status Sepsis Action Taken by Nursing 07/23/22 08:49 07/23/22 08:50 07/23/22 09:04 Pulse Rate 90 68 Pulse Rate from SpO2 Sensor Respiratory Rate 33 H Blood Pressure 70/42 L Blood Pressure [Right Arm] Blood Pressure Mean 51 Blood Pressure Mean [Right Arm] Pulse Oximetry Oxygen Delivery Method Oxygen Flow Rate Sepsis Recent Fever Within 48 Hours Sepsis New/Unexplained Change in Mental Status Sepsis Action Taken by Nursing 07/23/22 09:04 07/23/22 09:08 07/23/22 09:08 Pulse Rate 83 64 Pulse Rate from SpO2 Sensor Respiratory Rate 10 L 30 H Blood Pressure 78/35 L Blood Pressure [Right Arm] Blood Pressure Mean 49 Blood Pressure Mean [Right Arm] Pulse Oximetry Oxygen Delivery Method Oxygen Flow Rate Sepsis Recent Fever Within 48 Hours Sepsis New/Unexplained Change in Mental Status Sepsis Action Taken by Nursing 07/23/22 09:10 07/23/22 09:11 07/23/22 09:11 Pulse Rate 61 73 Pulse Rate from SpO2 Sensor 48 L Respiratory Rate 24 26 H Blood Pressure 54/40 L Blood Pressure [Right Arm] Blood Pressure Mean 44 Blood Pressure Mean [Right Arm] Pulse Oximetry 96 Oxygen Delivery Method Oxygen Flow Rate Sepsis Recent Fever Within 48 Hours Sepsis New/Unexplained Change in Mental Status Sepsis Action Taken by Nursing 07/23/22 09:12 07/23/22 09:12 07/23/22 09:15 Pulse Rate 60 61 Pulse Rate from SpO2 Sensor Respiratory Rate 25 H 25 H Blood Pressure 87/44 L Blood Pressure [Right Arm] Blood Pressure Mean 58 Blood Pressure Mean [Right Arm] Pulse Oximetry Oxygen Delivery Method Oxygen Flow Rate Sepsis Recent Fever Within 48 Hours Sepsis New/Unexplained Change in Mental Status Sepsis Action Taken by Nursing 07/23/22 09:15 07/23/22 09:20 07/23/22 09:22 Pulse Rate 65 73 Pulse Rate from SpO2 Sensor 63 Respiratory Rate 25 H 22 Blood Pressure 78/34 L Blood Pressure [Right Arm] Blood Pressure Mean 48 Blood Pressure Mean [Right Arm] Pulse Oximetry 91 92 Oxygen Delivery Method Oxymask Oxymask Oxygen Flow Rate 6 6 Sepsis Recent Fever Within 48 Hours Sepsis New/Unexplained Change in Mental Status Sepsis Action Taken by Nursing 07/23/22 09:22 07/23/22 09:30 07/23/22 09:34 Pulse Rate 76 63 Pulse Rate from SpO2 Sensor Respiratory Rate 22 22 Blood Pressure 85/35 L Blood Pressure [Right Arm] Blood Pressure Mean 51 Blood Pressure Mean [Right Arm] Pulse Oximetry 91 Oxygen Delivery Method Oxymask Oxygen Flow Rate 6 Sepsis Recent Fever Within 48 Hours Sepsis New/Unexplained Change in Mental Status Sepsis Action Taken by Nursing 07/23/22 09:34 07/23/22 09:40 07/23/22 09:46 Pulse Rate 58 L 69 Pulse Rate from SpO2 Sensor 67 67 Respiratory Rate 17 20 Blood Pressure 95/73 L Blood Pressure [Right Arm] Blood Pressure Mean 80 Blood Pressure Mean [Right Arm] Pulse Oximetry 97 91 Oxygen Delivery Method Oxymask Oxygen Flow Rate 6 Sepsis Recent Fever Within 48 Hours Sepsis New/Unexplained Change in Mental Status Sepsis Action Taken by Nursing 07/23/22 09:46 Pulse Rate Pulse Rate from SpO2 Sensor Respiratory Rate Blood Pressure 69/41 L Blood Pressure [Right Arm] Blood Pressure Mean 50 Blood Pressure Mean [Right Arm] Pulse Oximetry Oxygen Delivery Method Oxygen Flow Rate Sepsis Recent Fever Within 48 Hours Sepsis New/Unexplained Change in Mental Status Sepsis Action Taken by Nursing Laboratory Data Result diagrams: 07/23/22 08:32 07/23/22 08:32 Lab Results 07/23/22 07/23/22 07/23/22 Range/Units 08:24 08:32 08:32 WBC 5.76 (4.8-10.8) K/ul RBC 2.96 L (4.63-6.08) M/uL Hgb 9.4 L (14.0-18.0) g/dl POC Hgb (14.0-18.0) g/dl Hct 30.5 L (40.1-51.0) % POC Hct (42-52) % MCV 103.0 H (80.0-100.0) fL MCH 31.8 (25.0-34.0) pg MCHC 30.8 L (32.0-36.0) g/dL RDW Std Deviation 55.0 H (36.4-46.3) fL RDW Coeff of Vel 14.5 (11.5-14.5) % Plt Count 265 (130-400) K/uL MPV 8.8 L (9.4-12.4) fL Immature Gran % (Auto) 3.8 % Neut % (Auto) 81.6 % Lymph % (Auto) 11.5 % [place] % (Auto) 2.6 % Eos % (Auto) 0.2 % Baso % (Auto) 0.3 % Neut # (Auto) 4.70 (1.4-6.5) K/uL Lymph # (Auto) 0.66 L (1.2-3.4) K/uL [place] # (Auto) 0.15 L (0.24-0.82) K/uL Eos # (Auto) 0.01 (0-0.50) K/uL Baso # (Auto) 0.02 (0-0.2) K/uL Immature Gran # (Auto) 0.22 H (0.00-0.02) K/uL PT (9.0-12.0) Seconds INR (0.9-1.1) APTT (21.0-31.0) Seconds PTT Ratio VBG pH (7.36-7.41) VBG pCO2 (38-50) mmHg VBG pO2 mmHg VBG HCO3 mmol/L VBG O2 Saturation % VBG Base Excess mEq/L POC Sodium (135-144) mmol/L Sodium 131 L (136-145) mmol/L POC Potassium (3.3-5.0) mmol/L Potassium 7.6 H* (3.5-5.1) mmol/L POC Chloride (101-112) mmol/L Chloride 92 L (98-107) mmol/L Carbon Dioxide 3 L* (21-32) mmol/L POC Total CO2 (24-31) mmol/L Anion Gap 36 H (3-11) POC Anion Gap (16-25) mmol/L POC BUN (7-18) mg/dl BUN 191 H (6-23) mg/dl Creatinine 14.51 H* (0.6-1.4) mg/dl POC Creatinine (0.6-1.3) mg/dl Est Cr Clr Drug Dosing Not Reportable Est GFR ( Amer) 3.4 ml/min Est GFR (Non-Af Amer) 3.0 ml/min BUN/Creatinine Ratio 13.2 (10-20) Glucose 158 H (70-99(Fasting)) mg/dl POC Glucose 70 (70-99) mg/dl POC Glucose (other) (70-99) mg/dl Lactate (0.4-2.0) mmol/L Calcium 9.8 (8.5-10.1) mg/dl POC Ioniz Calcium Mateo (1.12-1.32) mmol/l Magnesium (1.7-2.4) mg/dl Total Bilirubin 0.4 (0.2-1.0) mg/dl AST 32 (13-39) U/L ALT 21 (7-52) U/L Alkaline Phosphatase 75 (34-104) U/L Total Protein 6.9 (6.0-8.3) gm/dl Albumin 4.2 (3.4-5.0) gm/dl Globulin 2.7 (2.5-4.0) gm/dl Albumin/Globulin Ratio 1.6 (0.9-2) Lipase 443 H (11-82) U/L Urine Color Urine Appearance (Clear) Urine pH (4.5-7.5) Ur Specific [place] (1.000-1.030) Urine Protein (Negative) Urine Glucose (UA) (Negative) Urine Ketones (Negative) Urine Blood (Negative) Urine Nitrite (Negative) Urine Bilirubin (Negative) Urine Urobilinogen (Negative) Ur Leukocyte Esterase (Negative) Urine WBC (Auto) (0-5) /hpf Urine RBC (Auto) (0-4) /hpf U Hyaline Cast (Auto) (0-5) /lpf U Epithel Cells (Auto) (0-5) /lpf Urine Bacteria (Auto) (Negative) SARS-CoV-2, RNA, NAAT (NEGATIVE) 07/23/22 07/23/22 07/23/22 Range/Units 08:32 08:32 08:34 WBC (4.8-10.8) K/ul RBC (4.63-6.08) M/uL Hgb (14.0-18.0) g/dl POC Hgb 9.5 L (14.0-18.0) g/dl Hct (40.1-51.0) % POC Hct 28 L (42-52) % MCV (80.0-100.0) fL MCH (25.0-34.0) pg MCHC (32.0-36.0) g/dL RDW Std Deviation (36.4-46.3) fL RDW Coeff of Vel (11.5-14.5) % Plt Count (130-400) K/uL MPV (9.4-12.4) fL Immature Gran % (Auto) % Neut % (Auto) % Lymph % (Auto) % [place] % (Auto) % Eos % (Auto) % Baso % (Auto) % Neut # (Auto) (1.4-6.5) K/uL Lymph # (Auto) (1.2-3.4) K/uL [place] # (Auto) (0.24-0.82) K/uL Eos # (Auto) (0-0.50) K/uL Baso # (Auto) (0-0.2) K/uL Immature Gran # (Auto) (0.00-0.02) K/uL PT 14.2 H (9.0-12.0) Seconds INR 1.4 H (0.9-1.1) APTT 47.5 H* (21.0-31.0) Seconds PTT Ratio 1.7 VBG pH (7.36-7.41) VBG pCO2 (38-50) mmHg VBG pO2 mmHg VBG HCO3 mmol/L VBG O2 Saturation % VBG Base Excess mEq/L POC Sodium 128 L (135-144) mmol/L Sodium (136-145) mmol/L POC Potassium 7.5 H* (3.3-5.0) mmol/L Potassium (3.5-5.1) mmol/L POC Chloride 101 (101-112) mmol/L Chloride (98-107) mmol/L Carbon Dioxide (21-32) mmol/L POC Total CO2 < 5 L* (24-31) mmol/L Anion Gap (3-11) POC Anion Gap 30.0 H (16-25) mmol/L POC BUN > 140 H* (7-18) mg/dl BUN (6-23) mg/dl Creatinine (0.6-1.4) mg/dl POC Creatinine 17.0 H* (0.6-1.3) mg/dl Est Cr Clr Drug Dosing Est GFR ( Amer) ml/min Est GFR (Non-Af Amer) ml/min BUN/Creatinine Ratio (10-20) Glucose (70-99(Fasting)) mg/dl POC Glucose (70-99) mg/dl POC Glucose (other) 153 H (70-99) mg/dl Lactate (0.4-2.0) mmol/L Calcium (8.5-10.1) mg/dl POC Ioniz Calcium Mateo 1.22 (1.12-1.32) mmol/l Magnesium 1.7 (1.7-2.4) mg/dl Total Bilirubin (0.2-1.0) mg/dl AST (13-39) U/L ALT (7-52) U/L Alkaline Phosphatase (34-104) U/L Total Protein (6.0-8.3) gm/dl Albumin (3.4-5.0) gm/dl Globulin (2.5-4.0) gm/dl Albumin/Globulin Ratio (0.9-2) Lipase (11-82) U/L Urine Color Urine Appearance (Clear) Urine pH (4.5-7.5) Ur Specific [place] (1.000-1.030) Urine Protein (Negative) Urine Glucose (UA) (Negative) Urine Ketones (Negative) Urine Blood (Negative) Urine Nitrite (Negative) Urine Bilirubin (Negative) Urine Urobilinogen (Negative) Ur Leukocyte Esterase (Negative) Urine WBC (Auto) (0-5) /hpf Urine RBC (Auto) (0-4) /hpf U Hyaline Cast (Auto) (0-5) /lpf U Epithel Cells (Auto) (0-5) /lpf Urine Bacteria (Auto) (Negative) SARS-CoV-2, RNA, NAAT (NEGATIVE) 07/23/22 07/23/22 07/23/22 Range/Units 08:46 09:06 09:18 WBC (4.8-10.8) K/ul RBC (4.63-6.08) M/uL Hgb (14.0-18.0) g/dl POC Hgb (14.0-18.0) g/dl Hct (40.1-51.0) % POC Hct (42-52) % MCV (80.0-100.0) fL MCH (25.0-34.0) pg MCHC (32.0-36.0) g/dL RDW Std Deviation (36.4-46.3) fL RDW Coeff of Vel (11.5-14.5) % Plt Count (130-400) K/uL MPV (9.4-12.4) fL Immature Gran % (Auto) % Neut % (Auto) % Lymph % (Auto) % [place] % (Auto) % Eos % (Auto) % Baso % (Auto) % Neut # (Auto) (1.4-6.5) K/uL Lymph # (Auto) (1.2-3.4) K/uL [place] # (Auto) (0.24-0.82) K/uL Eos # (Auto) (0-0.50) K/uL Baso # (Auto) (0-0.2) K/uL Immature Gran # (Auto) (0.00-0.02) K/uL PT (9.0-12.0) Seconds INR (0.9-1.1) APTT (21.0-31.0) Seconds PTT Ratio VBG pH (7.36-7.41) VBG pCO2 (38-50) mmHg VBG pO2 mmHg VBG HCO3 mmol/L VBG O2 Saturation % VBG Base Excess mEq/L POC Sodium (135-144) mmol/L Sodium (136-145) mmol/L POC Potassium (3.3-5.0) mmol/L Potassium (3.5-5.1) mmol/L POC Chloride (101-112) mmol/L Chloride (98-107) mmol/L Carbon Dioxide (21-32) mmol/L POC Total CO2 (24-31) mmol/L Anion Gap (3-11) POC Anion Gap (16-25) mmol/L POC BUN (7-18) mg/dl BUN (6-23) mg/dl Creatinine (0.6-1.4) mg/dl POC Creatinine (0.6-1.3) mg/dl Est Cr Clr Drug Dosing Est GFR ( Amer) ml/min Est GFR (Non-Af Amer) ml/min BUN/Creatinine Ratio (10-20) Glucose (70-99(Fasting)) mg/dl POC Glucose 93 (70-99) mg/dl POC Glucose (other) (70-99) mg/dl Lactate 14.0 H* (0.4-2.0) mmol/L Calcium (8.5-10.1) mg/dl POC Ioniz Calcium Mateo (1.12-1.32) mmol/l Magnesium (1.7-2.4) mg/dl Total Bilirubin (0.2-1.0) mg/dl AST (13-39) U/L ALT (7-52) U/L Alkaline Phosphatase (34-104) U/L Total Protein (6.0-8.3) gm/dl Albumin (3.4-5.0) gm/dl Globulin (2.5-4.0) gm/dl Albumin/Globulin Ratio (0.9-2) Lipase (11-82) U/L Urine Color Yellow Urine Appearance Clear (Clear) Urine pH 5.0 (4.5-7.5) Ur Specific [place] 1.016 (1.000-1.030) Urine Protein Trace H (Negative) Urine Glucose (UA) Negative (Negative) Urine Ketones Negative (Negative) Urine Blood Negative (Negative) Urine Nitrite Negative (Negative) Urine Bilirubin Negative (Negative) Urine Urobilinogen Negative (Negative) Ur Leukocyte Esterase Negative (Negative) Urine WBC (Auto) 1-5 (0-5) /hpf Urine RBC (Auto) 10-30 H (0-4) /hpf U Hyaline Cast (Auto) 1-5 (0-5) /lpf U Epithel Cells (Auto) 10-20 H (0-5) /lpf Urine Bacteria (Auto) Negative (Negative) SARS-CoV-2, RNA, NAAT (NEGATIVE) 07/23/22 07/23/22 Range/Units 09:18 09:40 WBC (4.8-10.8) K/ul RBC (4.63-6.08) M/uL Hgb (14.0-18.0) g/dl POC Hgb (14.0-18.0) g/dl Hct (40.1-51.0) % POC Hct (42-52) % MCV (80.0-100.0) fL MCH (25.0-34.0) pg MCHC (32.0-36.0) g/dL RDW Std Deviation (36.4-46.3) fL RDW Coeff of Vel (11.5-14.5) % Plt Count (130-400) K/uL MPV (9.4-12.4) fL Immature Gran % (Auto) % Neut % (Auto) % Lymph % (Auto) % [place] % (Auto) % Eos % (Auto) % Baso % (Auto) % Neut # (Auto) (1.4-6.5) K/uL Lymph # (Auto) (1.2-3.4) K/uL [place] # (Auto) (0.24-0.82) K/uL Eos # (Auto) (0-0.50) K/uL Baso # (Auto) (0-0.2) K/uL Immature Gran # (Auto) (0.00-0.02) K/uL PT (9.0-12.0) Seconds INR (0.9-1.1) APTT (21.0-31.0) Seconds PTT Ratio VBG pH < 7.00 L (7.36-7.41) VBG pCO2 18 L (38-50) mmHg VBG pO2 50 mmHg VBG HCO3 3 mmol/L VBG O2 Saturation 70.6 % VBG Base Excess -28.5 mEq/L POC Sodium (135-144) mmol/L Sodium (136-145) mmol/L POC Potassium (3.3-5.0) mmol/L Potassium (3.5-5.1) mmol/L POC Chloride (101-112) mmol/L Chloride (98-107) mmol/L Carbon Dioxide (21-32) mmol/L POC Total CO2 (24-31) mmol/L Anion Gap (3-11) POC Anion Gap (16-25) mmol/L POC BUN (7-18) mg/dl BUN (6-23) mg/dl Creatinine (0.6-1.4) mg/dl POC Creatinine (0.6-1.3) mg/dl Est Cr Clr Drug Dosing Est GFR ( Amer) ml/min Est GFR (Non-Af Amer) ml/min BUN/Creatinine Ratio (10-20) Glucose (70-99(Fasting)) mg/dl POC Glucose (70-99) mg/dl POC Glucose (other) (70-99) mg/dl Lactate (0.4-2.0) mmol/L Calcium (8.5-10.1) mg/dl POC Ioniz Calcium Mate[place] (1.12-1.32) mmol/l Magnesium (1.7-2.4) mg/dl Total Bilirubin (0.2-1.0) mg/dl AST (13-39) U/L ALT (7-52) U/L Alkaline Phosphatase (34-104) U/L Total Protein (6.0-8.3) gm/dl Albumin (3.4-5.0) gm/dl Globulin (2.5-4.0) gm/dl Albumin/Globulin Ratio (0.9-2) Lipase (11-82) U/L Urine Color Urine Appearance (Clear) Urine pH (4.5-7.5) Ur Specific [place] (1.000-1.030) Urine Protein (Negative) Urine Glucose (UA) (Negative) Urine Ketones (Negative) Urine Blood (Negative) Urine Nitrite (Negative) Urine Bilirubin (Negative) Urine Urobilinogen (Negative) Ur Leukocyte Esterase (Negative) Urine WBC (Auto) (0-5) /hpf Urine RBC (Auto) (0-4) /hpf U Hyaline Cast (Auto) (0-5) /lpf U Epithel Cells (Auto) (0-5) /lpf Urine Bacteria (Auto) (Negative) SARS-CoV-2, RNA, NAAT NEGATIVE (NEGATIVE) Administered Medications Hydromorphone HCl (Dilaudid/Nss) 100 mg in 100 mls @ 0 mls/hr IV .Q0M [facility]; Protocol Stop: 08/06/22 10:29 Last Titration: 07/23/22 13:57 Dose: 0 mg/hr, 0 mls/hr Documented By: MANOJ Co-signed By: OL Titration: 07/23/22 13:46 Dose: 0 mg/hr, 0 mls/hr Documented By: MANOJ Co-signed By: CRYSTAL Titration: 07/23/22 11:40 Dose: 0.4 mg/hr, 0.4 mls/hr Documented By: MANOJ Co-signed By: REID Admin: 07/23/22 11:07 Dose: 0.2 mg/hr, 0.2 mls/hr Documented By: KYLAH Co-signed By: MANOJ Discontinued Medications Calcium Gluconate (Calcium Gluconate 1000 Mg/60 Ml Nss) Confirm Administered Dose 2,000 mg IV .STK-MED ONE Stop: 07/23/22 08:42 Last Admin: 07/23/22 08:52 Dose: Not Given Documented By: MANOJ Dextrose (Dextrose 50% 50 Ml Syringe) Confirm Administered Dose 50 ml IV .STK- MED ONE Stop: 07/23/22 08:39 Last Admin: 07/23/22 08:52 Dose: Not Given Documented By: MANOJ Dextrose (Dextrose 50% 50 Ml Syringe) 50 ml IV NOW ONE Stop: 07/23/22 08:42 Last Admin: 07/23/22 08:40 Dose: 50 ml Documented By: MANOJ Dextrose (Dextrose 50% 50 Ml Syringe) 50 ml IV NOW STA Stop: 07/23/22 08:47 Last Admin: 07/23/22 08:50 Dose: 50 ml Documented By: MANOJ Hydromorphone HCl (Hydromorphone Inj 0.5 Mg/0.5 Ml Syr) 0.5 mg IV NOW STA Stop: 07/23/22 10:16 Last Admin: 07/23/22 11:07 Dose: 0.5 mg Documented By: KYLAH Calcium Gluconate () 1,000 mg in 60 mls @ 240 mls/hr IV Q15M [facility] Stop: 07/23/22 09:14 Last Infusion: 07/23/22 10:13 Dose: 0 mls/hr Documented By: Admin: 07/23/22 09:18 Dose: 240 mls/hr Documented By: Infusion: 07/23/22 08:55 Dose: 240 mls/hr Documented By: Admin: 07/23/22 08:40 Dose: 240 mls/hr Documented By: MANOJ Sodium Chloride (Nss 1000ml) 2,000 mls @ 999 mls/hr IV .Q2H1M ONE Stop: 07/23/22 10:41 Last Infusion: 07/23/22 10:00 Dose: 0 mls/hr Documented By: Admin: 07/23/22 08:40 Dose: 999 mls/hr Documented By: MANOJ Cefepime HCl (Maxipime) 2,000 mg in 20 mls @ 5 mls/min IV NOW [facility]; Protocol Stop: 07/23/22 09:01 Last Admin: 07/23/22 09:38 Dose: 5 mls/min Documented By: KYLAH Norepinephrine Bitartrate (Levophed/D5w) 4 mg in 250 mls @ 16.875 mls/hr IV .[id number] [facility]; Protocol Stop: 08/22/22 09:14 Last Titration: 07/23/22 11:00 Dose: 0 mcg/kg/min, 0 mls/hr Documented By: Titration: 07/23/22 09:47 Dose: 0.07 mcg/kg/min, 23.6 mls/hr Documented By: Admin: 07/23/22 09:18 Dose: 0.05 mcg/kg/min, 16.9 mls/hr Documented By: KYLAH Co-signed By: NATALIE Calcium Gluconate () 1,000 mg in 60 mls @ 240 mls/hr IV NOW STA Stop: 07/23/22 09:46 Last Infusion: 07/23/22 10:13 Dose: 0 mls/hr Documented By: Admin: 07/23/22 09:37 Dose: 240 mls/hr Documented By: KYLAH Sodium Bicarbonate 150 meq/ (Dextrose) 1,150 mls @ 250 mls/hr IV .Q4H36M [facility] Stop: 08/22/22 09:44 Last Infusion: 07/23/22 11:00 Dose: 0 mls/hr Documented By: Admin: 07/23/22 10:04 Dose: 250 mls/hr Documented By: KYLAH Insulin Aspart (Insulin Aspart Per Unit) Confirm Administered Dose 1 [address] ONE Stop: 07/23/22 08:40 Last Admin: 07/23/22 08:52 Dose: Not Given Documented By: MANOJ Co-signed By: LAKISHA Insulin Human Regular (Novolin-R Insulin Per Unit Charge) Confirm Administered Dose [address] ONE Stop: 07/23/22 08:38 Last Admin: 07/23/22 08:52 Dose: Not Given Documented By: MANOJ Insulin Human Regular (Novolin-R Insulin Per Unit Charge) Confirm Administered Dose [address] ONE Stop: 07/23/22 08:40 Last Admin: 07/23/22 08:52 Dose: Not Given Documented By: MANOJ Insulin Human Regular (Novolin-R Insulin Per Unit Charge) Confirm Administered Dose 10 units .[address] .[facility] ONE Stop: 07/23/22 08:41 Last Admin: 07/23/22 08:52 Dose: Not Given Documented By: MANOJ Lorazepam (Lorazepam 2 Mg/1 Ml Vial) 0.5 mg IV NOW STA; Protocol Stop: 07/23/22 10:16 Last Admin: 07/23/22 10:45 Dose: 0.5 mg Documented By: KYLAH Morphine Sulfate (Morphine Sulfate 4 Mg/Ml 1 Ml Carp\Vial) Confirm Administered Dose 4 mg .ROUTE .[facility] ONE Stop: 07/23/22 09:34 Last Admin: 07/23/22 09:37 Dose: Not Given Documented By: KYLAH Morphine Sulfate (Morphine Sulfate 4 Mg/Ml 1 Ml Carp\Vial) 4 mg IV NOW STA Stop: 07/23/22 09:34 Last Admin: 07/23/22 09:37 Dose: 4 mg Documented By: KYLAH Norepinephrine Bitartrate (Norepinephrine/D5w 4 Mg/250 Ml) Confirm Administered Dose 4 mg IV .[facility] ONE Stop: 07/23/22 09:07 Last Admin: 07/23/22 09:37 Dose: Not Given Documented By: KYLAH Sodium Bicarbonate (Sodium Bicarb 8.4% Inj 50 Meq/50 Ml Syr) 100 meq IV NOW STA Stop: 07/23/22 08:42 Last Admin: 07/23/22 08:53 Dose: 100 meq Documented By: TW Sodium Bicarbonate (Sodium Bicarb 8.4% Inj 50 Meq/50 Ml Syr) 50 meq IV NOW STA Stop: 07/23/22 09:33 Last Admin: 07/23/22 09:37 Dose: 50 meq Documented By: KYLAH Imaging Data Radiologist's Impression: Abdomen/Pelvis CT 07/23/22 08:40 CT SCAN OF THE CHEST, ABDOMEN, AND PELVIS WITHOUT IV CONTRAST CLINICAL HISTORY: Change in mental status. Dyspnea. COMPARISON STUDY: Chest x-ray dated 02/10/2022. Abdominal CT dated 02/10/2022. TECHNIQUE: Unenhanced CT scan of the chest, abdomen, and pelvis was performed from the thoracic inlet to the proximal femora. Images are reviewed in the axial, sagittal, and coronal planes. IV contrast was not administered for this examination. Note that the examinations were performed in significantly suboptimal fashion without oral and IV contrast. The examinations are also degraded by motion artifact, as well as by streak artifact from the arms which could not be elevated above the chest or abdomen. A dose lowering technique was utilized adhering to the principles of ALARA. CT DOSE: 2641.73 mGy.cm FINDINGS: CHEST: Thyroid: Normal in size and heterogeneous in attenuation. Thoracic aorta: There is atherosclerotic calcification of the thoracic aorta. There is mild aneurysmal dilatation of the ascending thoracic aorta which measures up to 4.2 cm in diameter. The remainder of the thoracic aorta is normal in caliber, and the arch demonstrates standard 3-vessel anatomy. Heart: The heart is enlarged and without pericardial effusion. The coronary arteries are densely calcified. There is diminished attenuation of the cardiac blood pool as compared to the myocardium suggesting anemia. The pulmonary trunk is dilated, measuring 4.0 cm in diameter. This suggests pulmonary artery hypertension. Lungs and pleural spaces: Evaluation of the lung parenchyma is degraded by motion artifact. No airspace consolidation, pleural effusion, or pneumothorax is identified. The trachea and central airways are clear. Low suspicion focus of pleural-based nodularity are seen along the right major minor fissures. A 4 mm right middle lobe pulmonary nodule is seen on image #194. This is unchanged from previous. Mediastinum: There is no mediastinal lymphadenopathy. As always: The esophagus is mildly thick-walled and filled with fluid nearly to the level of the thoracic inlet. Yudy: Not well assessed without IV contrast. Axillae: There is no axillary lymphadenopathy. Bony thorax: The skeletal structures are heterogeneously osteopenic. Spondylotic change is seen throughout the thoracic spine. No lytic or blastic lesions are identified. ABDOMEN AND PELVIS: Liver: Evaluation of the liver is degraded by streak artifact. The unenhanced liver is normal in size and heterogeneous in attenuation. Mild nodularity of the hepatic surface contour suggests morphologic change of cirrhosis. There is no intrahepatic biliary ductal dilatation. The Gallbladder: There are calcified gallstones without CT evidence of acute cholecystitis. Choledocholithiasis is suggested at the ampulla on image #173. Spleen: Normal in size and attenuation. A 2.6 cm hypodensity in the inferior spleen is unchanged and statistically of doubtful significance. Pancreas: The unenhanced pancreas is moderately atrophic and grossly unremarkable. Adrenal glands: Unremarkable. Kidneys: The unenhanced kidneys demonstrate cortical atrophy and are without hydronephrosis. No renal calculi are identified. A 3.8 cm cyst arises anteriorly from the left kidney. Abdominal vasculature: The abdominal aorta is normal in course and caliber noting moderate atherosclerotic calcification. Stomach and bowel: A small hiatal hernia is noted. The stomach is significantly distended and filled with fluid. There is no evidence of bowel obstruction. The small bowel loops are fluid-filled and appear thick walled. There is moderate colonic diverticulosis without CT evidence of acute diverticulitis. Liquid stool seen throughout the colon. There is rectosigmoid fecal retention. The appendix is well-visualized and normal. Peritoneum: There is no intraperitoneal free air or abdominal ascites. Lymphadenopathy: None. Pelvic viscera: The bladder is decompressed around a Allen catheter and not well evaluated. The prostate gland is enlarged and heterogeneous. The seminal vesicles are normal as visualized. Skeletal structures: The skeletal structures are heterogeneously osteopenic. There is moderate lumbosacral spondylosis. No lytic or blastic lesions are seen. IMPRESSION: 1. Severely suboptimal examination without oral and IV contrast. The examinations are also compromised by streak and motion artifact. 2. There is no airspace consolidation, pleural effusion, or pneumothorax. 3. Cardiomegaly with evidence of pulmonary artery hypertension. 4. The stomach is distended and filled with fluid. Correlate clinically for evidence of gastric outlet obstruction. This could be further assessed with endoscopy if clinically warranted. 5. The esophagus is mildly thick-walled and filled with fluid nearly to the level of the thoracic inlet. Note that this may place the patient at risk for aspiration. 6. There is no evidence of bowel obstruction. 7. The small bowel loops appear fluid-filled and may be mildly thick-walled. There is also liquid stool seen throughout the colon. Correlate clinically for evidence of a nonspecific enterocolitis/diarrheal illness. 8. No intraperitoneal free air is identified. 9. Colonic diverticulosis without CT evidence of acute diverticulitis. 10. Cholelithiasis with possible choledocholithiasis. There is no CT evidence of acute cholecystitis. 11. Appearance of the liver suggests early morphologic change of cirrhosis. 12. Additional findings as above. ACT 112: Negative or not required by law. Electronically signed by: Eris Ceballos M.D. 07/23/2022 9:[address] 07/23/22 08:46 CT SCAN OF THE CHEST, ABDOMEN, AND PELVIS WITHOUT IV CONTRAST CLINICAL HISTORY: Change in mental status. Dyspnea. COMPARISON STUDY: Chest x-ray dated 02/10/2022. Abdominal CT dated 02/10/2022. TECHNIQUE: Unenhanced CT scan of the chest, abdomen, and pelvis was performed from the thoracic inlet to the proximal femora. Images are reviewed in the axial, sagittal, and coronal planes. IV contrast was not administered for this examination. Note that the examinations were performed in significantly suboptimal fashion without oral and IV contrast. The examinations are also degraded by motion artifact, as well as by streak artifact from the arms which could not be elevated above the chest or abdomen. A dose lowering technique was utilized adhering to the principles of ALARA. CT DOSE: 2641.73 mGy.cm FINDINGS: CHEST: Thyroid: Normal in size and heterogeneous in attenuation. Thoracic aorta: There is atherosclerotic calcification of the thoracic aorta. There is mild aneurysmal dilatation of the ascending thoracic aorta which measures up to 4.2 cm in diameter. The remainder of the thoracic aorta is normal in caliber, and the arch demonstrates standard 3-vessel anatomy. Heart: The heart is enlarged and without pericardial effusion. The coronary arteries are densely calcified. There is diminished attenuation of the cardiac blood pool as compared to the myocardium suggesting anemia. The pulmonary trunk is dilated, measuring 4.0 cm in diameter. This suggests pulmonary artery hype rtension. Lungs and pleural spaces: Evaluation of the lung parenchyma is degraded by motion artifact. No airspace consolidation, pleural effusion, or pneumothorax is identified. The trachea and central airways are clear. Low suspicion focus of pleural-based nodularity are seen along the right major minor fissures. A 4 mm right middle lobe pulmonary nodule is seen on image #194. This is unchanged from previous. Mediastinum: There is no mediastinal lymphadenopathy. As always: The esophagus is mildly thick-walled and filled with fluid nearly to the level of the thoracic inlet. Yudy: Not well assessed without IV contrast. Axillae: There is no axillary lymphadenopathy. Bony thorax: The skeletal structures are heterogeneously osteopenic. Spondylotic change is seen throughout the thoracic spine. No lytic or blastic lesions are identified. ABDOMEN AND PELVIS: Liver: Evaluation of the liver is degraded by streak artifact. The unenhanced liver is normal in size and heterogeneous in attenuation. Mild nodularity of the hepatic surface contour suggests morphologic change of cirrhosis. There is no intrahepatic biliary ductal dilatation. The Gallbladder: There are calcified gallstones without CT evidence of acute cholecystitis. Choledocholithiasis is suggested at the ampulla on image #173. Spleen: Normal in size and attenuation. A 2.6 cm hypodensity in the inferior spleen is unchanged and statistically of doubtful significance. Pancreas: The unenhanced pancreas is moderately atrophic and grossly unremarkable. Adrenal glands: Unremarkable. Kidneys: The unenhanced kidneys demonstrate cortical atrophy and are without hydronephrosis. No renal calculi are identified. A 3.8 cm cyst arises anteriorly from the left kidney. Abdominal vasculature: The abdominal aorta is normal in course and caliber noting moderate atherosclerotic calcification. Stomach and bowel: A small hiatal hernia is noted. The stomach is significantly distended and filled with fluid. There is no evidence of bowel obstruction. The small bowel loops are fluid-filled and appear thick walled. There is moderate colonic diverticulosis without CT evidence of acute diverticulitis. Liquid stool seen throughout the colon. There is rectosigmoid fecal retention. The appendix is well-visualized and normal. Peritoneum: There is no intraperitoneal free air or abdominal ascites. Lymphadenopathy: None. Pelvic viscera: The bladder is decompressed around a Allen catheter and not well evaluated. The prostate gland is enlarged and heterogeneous. The seminal vesicles are normal as visualized. Skeletal structures: The skeletal structures are heterogeneously osteopenic. There is moderate lumbosacral spondylosis. No lytic or blastic lesions are seen. IMPRESSION: 1. Severely suboptimal examination without oral and IV contrast. The examinations are also compromised by streak and motion artifact. 2. There is no airspace consolidation, pleural effusion, or pneumothorax. 3. Cardiomegaly with evidence of pulmonary artery hypertension. 4. The stomach is distended and filled with fluid. Correlate clinically for evidence of gastric outlet obstruction. This could be further assessed with endoscopy if clinically warranted. 5. The esophagus is mildly thick-walled and filled with fluid nearly to the level of the thoracic inlet. Note that this may place the patient at risk for aspiration. 6. There is no evidence of bowel obstruction. 7. The small bowel loops appear fluid-filled and may be mildly thick-walled. There is also liquid stool seen throughout the colon. Correlate clinically for evidence of a nonspecific enterocolitis/diarrheal illness. 8. No intraperitoneal free air is identified. 9. Colonic diverticulosis without CT evidence of acute diverticulitis. 10. Cholelithiasis with possible choledocholithiasis. There is no CT evidence of acute cholecystitis. 11. Appearance of the liver suggests early morphologic change of cirrhosis. 12. Additional findings as above. ACT 112: Negative or not required by law. Electronically signed by: Eris Ceballos M.D. 07/23/2022 9:[address] 07/23/22 08:46 CT head/brain wo con CLINICAL HISTORY: ams Technique: Contiguous axial CT images of the head were acquired from the base of the skull to the vertex without intravenous contrast administration. Images were viewed in brain, subdural and bone windows. Automated dose lowering techniques and/or adjustment according to patient size were utilized for this exam. Comparison: None available at the time of this dictation. Findings: Exam is limited by patient motion. Areas of decreased attenuation are present in the periventricular and subcortical white matter bilaterally consistent with small vessel ischemic disease. Generalized cerebral volume loss with commensurate enlargement of the ventricles, sulci, and cisterns is also present. 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 This appearance is unchanged from prior exam. Stable lacunar infarct in the right basal ganglia. Redemonstration of opacification of a right ethmoid air cell which appears stably enlarged. Mucous retention cyst in the left maxillary sinus is noted. The orbits appear normal. There are no acute fractures of the calvaria or scalp swelling. Impression: Limited exam due to patient motion. No acute abnormalities are seen. Old infarcts are noted. Stable right ethmoid sinus disease. ACT 112: Negative or not required by law. Electronically signed by: Trell Rodriguez M.D. 07/23/2022 9:11 AM Discharge Plan Visit Data Chief Complaint: Abdominal Pain ED Provider: Billy Mcclure Discharge Problem: Acute hyperkalemia, Acute renal failure, Respiratory failure, Acute hypotension, Hypothermia
[2022-07-23] MEDS ORDERED: NOREPINEPHRINE/D5W 4 MG/250 ML IV ONE (09:06)
[2022-07-23 09:12] LABS: Alanine Aminotransferase 21 U/L (7-52); Albumin Globulin Ratio 1.6 (0.9-2); Albumin Level 4.2 gm/dl (3.4-5.0); Alkaline Phosphatase 75 U/L (34-104); Anion Gap 36 (3-11); Aspartate Aminotransferase 32 U/L (13-39); Bilirubin,Total 0.4 mg/dl (0.2-1.0); Calcium 9.8 mg/dl (8.5-10.1); Carbon Dioxide 3 mmol/L (21-32); Chloride 92 mmol/L (98-107); Globulin 2.7 gm/dl (2.5-4.0); Glucose 158 mg/dl (70-99(Fasting)); Lipase 443 U/L (11-82); Potassium 7.6 mmol/L (3.5-5.1); Sodium 131 mmol/L (136-145); Total Protein 6.9 gm/dl (6.0-8.3)
[2022-07-23] MEDS ORDERED: STAT IV Infusion **Titration per Protocol STA ×2 (09:12→10:15)
--- NOTE | 2022-07-23 09:13 | CT Scan Report ---
CT head/brain wo con CLINICAL HISTORY: ams Technique: Contiguous axial CT images of the head were acquired from the base of the skull to the clifton laura without intravenous contrast administration. Images were viewed in brain, subdural and bone [facility]. Automated dose lowering techniques and/or adjustment according to patient size were utilized for this exam. Comparison: None available at the time of this dictation. Findings: Exam is limited by patient motion. Areas of decreased attenuation are present in the periventricular and subcortical white matter bilate rally consistent with small vessel ischemic disease. Generalized cerebral volume loss with commensura te enlargement of the ventricles, sulci, and cisterns is also present. Old infarct is noted in multip le foci in the right hemisphere. This appearance is unchanged from prior exam. Stable lacunar infarc t in the right basal ganglia. Redemonstration of opacification of a right ethmoid air cell which appears stably enlarged. Mucous re tention cyst in the left maxillary sinus is noted. The orbits appear normal. There are no acute frac tures of the calvaria or scalp swelling. Impression: Limited exam due to patient motion. No acute abnormalities are seen. Old infarcts are noted. Stable r ight ethmoid sinus disease. ACT 112: Negative or not required by law. Electronically signed by: Trell Rodriguez M.D. 07/23/2022 9:11 AM
[2022-07-23] MEDS ORDERED: NOREPINEPHRINE/D5W 4 MG/250 ML PLCT IV SCH (09:15)
[2022-07-23 09:17] LABS: BUN Creatinine Ratio 13.2 (10-20); Blood Urea Nitrogen 191 mg/dl (6-23); Est GFR (African American) 3.4 ml/min
[2022-07-23 09:18] LABS: INR 1.4 (0.9-1.1); Partial Thromboplastin Ratio 1.7; Prothrombin Time 14.2 Seconds (9.0-12.0)
[2022-07-23 09:21] LABS: Partial Thromboplastin Time 47.5 Seconds (21.0-31.0)
[2022-07-23 09:31] LABS: Base Excess VBG -28.5 mEq/L; HCO3 VBG 3 mmol/L; Oxygen Saturation VBG 70.6 %; PCO2 VBG 18 mmHg (38-50); PO2 VBG 50 mmHg; pH VBG < 7.00 (7.36-7.41)
--- NOTE | 2022-07-23 09:31 | CT Scan Report ---
CT SCAN OF THE CHEST, ABDOMEN, AND PELVIS WITHOUT IV CONTRAST CLINICAL HISTORY: Change in mental status. Dyspnea. COMPARISON STUDY: Chest x-ray dated 02/10/2022. Abdominal CT dated 02/10/2022. TECHNIQUE: Unenhanced CT scan of the chest, abdomen, and pelvis was performed from the thoracic inlet to the proximal femora. Images are reviewed in the axial, sagittal, and coronal planes. IV contrast was not administered for this examination. Note that the examinations were performed in significantly suboptimal fashion without oral and IV contrast. The examinations are also degraded by motion artif act, as well as by streak artifact from the arms which could not be elevated above the chest or abdom en. A dose lowering technique was utilized adhering to the principles of ALARA. CT DOSE: 2641.73 mGy.cm FINDINGS: CHEST: Thyroid: Normal in size and heterogeneous in attenuation. Thoracic aorta: There is atherosclerotic calcification of the thoracic aorta. There is mild aneurysma l dilatation of the ascending thoracic aorta which measures up to 4.2 cm in diameter. The remainder o f the thoracic aorta is normal in caliber, and the arch demonstrates standard 3-vessel anatomy. Heart: The heart is enlarged and without pericardial effusion. The coronary arteries are densely calc ified. There is diminished attenuation of the cardiac blood pool as compared to the myocardium sugges ting anemia. The pulmonary trunk is dilated, measuring 4.0 cm in diameter. This suggests pulmonary ar curt hypertension. Lungs and pleural spaces: Evaluation of the lung parenchyma is degraded by motion artifact. No airspa ce consolidation, pleural effusion, or pneumothorax is identified. The trachea and central airways ar e clear. Low suspicion focus of pleural-based nodularity are seen along the right major minor fissure s. A 4 mm right middle lobe pulmonary nodule is seen on image #194. This is unchanged from previous. Mediastinum: There is no mediastinal lymphadenopathy. As always: The esophagus is mildly thick-walled and filled with fluid nearly to the level of the thor acic inlet. Yudy: Not well assessed without IV contrast. Axillae: There is no axillary lymphadenopathy. Bony thorax: The skeletal structures are heterogeneously osteopenic. Spondylotic change is seen throu ghout the thoracic spine. No lytic or blastic lesions are identified. ABDOMEN AND PELVIS: Liver: Evaluation of the liver is degraded by streak artifact. The unenhanced liver is normal in size and heterogeneous in attenuation. Mild nodularity of the hepatic surface contour suggests morphologi c change of cirrhosis. There is no intrahepatic biliary ductal dilatation. The Gallbladder: There are calcified gallstones without CT evidence of acute cholecystitis. Choledocholit hiasis is suggested at the ampulla on image #173. Spleen: Normal in size and attenuation. A 2.6 cm hypodensity in the inferior spleen is unchanged and statistically of doubtful significance. Pancreas: The unenhanced pancreas is moderately atrophic and grossly unremarkable. Adrenal glands: Unremarkable. Kidneys: The unenhanced kidneys demonstrate cortical atrophy and are without hydronephrosis. No renal calculi are identified. A 3.8 cm cyst arises anteriorly from the left kidney. Abdominal vasculature: The abdominal aorta is normal in course and caliber noting moderate atheroscle rotic calcification. Stomach and bowel: A small hiatal hernia is noted. The stomach is significantly distended and filled with fluid. There is no evidence of bowel obstruction. The small bowel loops are fluid-filled and rustam ear thick walled. There is moderate colonic diverticulosis without CT evidence of acute diverticuliti s. Liquid stool seen throughout the colon. There is rectosigmoid fecal retention. The appendix is we ll-visualized and normal. Peritoneum: There is no intraperitoneal free air or abdominal ascites. Lymphadenopathy: None. Pelvic viscera: The bladder is decompressed around a Allen catheter and not well evaluated. The prost ate gland is enlarged and heterogeneous. The seminal vesicles are normal as visualized. Skeletal structures: The skeletal structures are heterogeneously osteopenic. There is moderate lumbos acral spondylosis. No lytic or blastic lesions are seen. IMPRESSION: 1. Severely suboptimal examination without oral and IV contrast. The examinations are also compromise d by streak and motion artifact. 2. There is no airspace consolidation, pleural effusion, or pneumothorax. 3. Cardiomegaly with evidence of pulmonary artery hypertension. 4. The stomach is distended and filled with fluid. Correlate clinically for evidence of gastric outle t obstruction. This could be further assessed with endoscopy if clinically warranted. 5. The esophagus is mildly thick-walled and filled with fluid nearly to the level of the thoracic inl et. Note that this may place the patient at risk for aspiration. 6. There is no evidence of bowel obstruction. 7. The small bowel loops appear fluid-filled and may be mildly thick-walled. There is also liquid sto ol seen throughout the colon. Correlate clinically for evidence of a nonspecific enterocolitis/diarrh eal illness. 8. No intraperitoneal free air is identified. 9. Colonic diverticulosis without CT evidence of acute diverticulitis. 10. Cholelithiasis with possible choledocholithiasis. There is no CT evidence of acute cholecystitis. 11. Appearance of the liver suggests early morphologic change of cirrhosis. 12. Additional findings as above. ACT 112: Negative or not required by law. Electronically signed by: Eris Ceballos M.D. 07/23/2022 9:29 AM
[2022-07-23] MEDS ORDERED: CALCIUM GLUCONATE 1,000 MG/60 ML BAG IV STA (09:32)
[2022-07-23] MEDS ORDERED: MoRPHine SULFATE 4 MG/ML 1 ML CARP\\VIAL ONE (09:33)
[2022-07-23] MEDS ORDERED: MoRPHine SULFATE 4 MG/ML 1 ML CARP\\VIAL IV STA (09:33)
[2022-07-23] MEDS ORDERED: SODIUM BICARBONATE 8.4% 150 MEQ in DEXTROSE 5% 1,000 ML IV SCH (09:45)
--- NOTE | 2022-07-23 09:45 | History & Physical Report ---
Date of Service July 23, 2022 Assessment & Plan (1) Multiple organ system failure: (2) CAD (coronary artery disease), [place] coronary artery: (3) Decompensated heart failure: (4) Palliative care encounter: (5) Goals of care, counseling/discussion: (6) Diabetes mellitus: Plan Patient presented from [facility] with abdominal and back pain and was found to be in decompensated heart and kidney failure. Unfortunately, the patient and family has opted for a more conservative approach to his care, including no central lines or heroic measures taken in the event of cardiac or respiratory arrest. Pt full COPY EDITOR. Pt family en route to be with patient at end of life. Life expectancy likely hours to a few days. Patient will be admitted to the med/surg floor for continued comfort measures. Multiple Organ System Failure: Likely multi-factorial; patient not hemodynamically stable on arrival; hypotensive, tachypnic, tachycardic. Was started on Levophed; however, patient family denied any central line placement that would be necessary for emergent dialysis, along with a Nephro consult. Creatinine level 17.0, K+ 7.5. Patient received IV fluids, Ca+ Gluconate and was started on a HCO3 gtt. Pt was started on Bipap; however, patient became quite agitated. abdominal CT scan revealed some intraabdominal fluid; however, patient became agitated with NGT insertion; family opted to forgo. Decompensated Heart Failure with reduced ejection fraction CAD: Recent ECHO EF 25-30% Patient with mitral regurgitation HERNANDEZ placed to LM and proximal LAD in 2020. Patient was advised to consider an evaluation for a CABG; however, patient stated he preferred a more conservative approach to his care. Pre admission; pt takes Plavix, Metoprolol, Aldactone and Bumex; all discontinued while now COPY EDITOR. Palliative Care Encounter Goals of Care, Counseling/Discussion: Patient unable to converse in a meaningful way; however, has made some statements that he feels like he is dying. I did explain that his body is failing him and we do believe that even with aggressive measures, he is dying due to his heart and multiple organ failure. I was able to have a lengthy conversation with his brother/BRYANTA Negro on the phone at [phone] who stated that he knows that his brother would not want heroic measures taken, nor would he want aggressive attempts to saving his life, including hemodialysis. I did explain that he is already receiving IV vasoactive medications and that he was not tolerating the Bipap mask for additional oxygen support. Vinicius is currently in [place] and plans to drive to [place] today; however, he fully supports a full COMFORT MEASURES ONLY transition, including stopping all continuous medications not focused on Comfort. Start Dilaudid infusion to avoid any opioid toxicity/monoclonus symptoms due to his elevated creatinine level. Life expectancy is hours to a few days. Pastoral Care Consult placed: reached out to Edvin Callahan via [place] [employer] to provide support with the patient. The above and below plan was discussed and coordinated with Bottle Capping Machine Operator Dr. Moseley and Hospitalist Dr. Greer. Diabetes Mellitus, Type 2 Peripheral Neuropathy: Last recorded A1C: 5.6 07/12/2021 Controlled by oral agents: Metformin; discontinued while now on COPY EDITOR. Takes Gabapentin for Peripheral neuropathy; D/C while pt is COPY EDITOR. Dyslipidemia: Was on Atorvastatin; DC while now COPY EDITOR. Disposition: PCP: Dr Kyle [facility] Code Status: DNR/DNI Anticipate patient will in hospital History of Present Illness Chief Complaint: back and abdominal pain Primary Care Provider: [facility] Mr. Coffman is a 72 y/o male with PMH DM type II, HTN, history of CVA, left BKA, multivessel CAD s/p HERNANDEZ to distal LM and proximal LAD January 2021 (referred for CABG however patient opted for medical management), ischemic cardiomyopathy EF 25 to 30% and diabetes who presented to the [facility] with abdominal and back pain and some nausea without vomiting and was found to be in decompensated heart and kidney failure with a creatinine of 17 and K+ 7.5. The patient was started on Levophed and HCO3 gtts and I was able to reach out to the patients brother/POA for further goals of care discussion to be held. Unfortunately, the patient and family has opted for a more conservative approach to his care, including no central lines or heroic measures taken in the event of cardiac or respiratory arrest. Aggressive treatment measures in this individual with decompensated heart failure would likely be futile without likely meaningful recovery. Pt transitioned to full COPY EDITOR. Pt family en route to be with patient at end of life. Patient will be admitted for end of life, comfort measures. Allergies Allergy/AdvReac Type Severity Reaction Status Date / Time No Known Allergies Allergy Verified 05/22/22 09:20 Home Medications Medication Instructions Recorded Confirmed Type aspirin 81 mg tablet,delayed 81 mg PO QAM 06/09/21 07/23/22 History release clopidogrel 75 mg tablet (Plavix) 75 mg PO QAM 06/09/21 07/23/22 History folic acid 3 mg-vit B complex with 1 tab PO QAM 06/09/21 07/23/22 History C-selenium 70 mcg-zinc 15 mg tablet gabapentin 100 mg capsule 200 mg PO BID 30 days #120 caps 06/22/21 07/23/22 Rx ferrous sulfate 325 mg (65 mg 325 mg PO TID 09/11/21 07/23/22 History iron) tablet metformin 850 mg tablet 850 mg PO BID 09/11/21 07/23/22 History multivitamin with folic acid 400 1 tab PO QAM #30 tabs 09/21/21 07/23/22 Rx mcg tablet (Daily-Cesar (with folic acid)) lisinopril 20 mg tablet 20 mg PO QAM #30 tabs 11/17/21 07/23/22 Rx metoprolol succinate 50 mg 100 mg PO DAILY@1000 02/10/22 07/23/22 History tablet,extended release 24 hr spironolactone 25 mg tablet 25 mg PO QAM 02/10/22 07/23/22 History pantoprazole 40 mg tablet,delayed 40 mg PO DAILY #30 tabs 02/13/22 07/23/22 Rx release bumetanide 2 mg tablet 2 mg PO DAILY #30 tabs 03/26/22 07/23/22 Rx atorvastatin 80 mg tablet (Lipitor) 40 mg PO PM 05/22/22 07/23/22 History Past Med/Surg History Medical History (Updated 07/23/22 @ 10:22 by ANA Baeza) Acute GI bleeding Anemia CAD (coronary artery disease), [place] coronary artery 02/12/2021: PCI with HERNANDEZ to the distal left main and proximal LAD. Additional distal LAD disease. Large non dominant left circumflex with moderate diffuse disease. Long subtotal occlusion of the distal vessel. Large dominant RCA with focal 70-80% lesion in the mid vessel. Diffuse [id number] distal disease. Carotid stenosis Decompensated heart failure Diabetes mellitus Goals of care, counseling/discussion History of CVA with residual deficit History of left below knee amputation Hyperlipidemia LDL goal <70 Ischemic cardiomyopathy LBBB (left bundle branch block) Mitral regurgitation Multiple organ system failure NSTEMI (non-ST elevated myocardial infarction) Palliative care encounter Peripheral vascular disease Symptomatic anemia Surgical History History of coronary artery stent placement History of right common carotid artery stent placement Status post below-knee amputation of left lower extremity Dr English 06/2021 Family History Other Diabetes Social History Smoking Status: Former smoker Hx Alcohol Use: No Hx Substance Use: No Preferred Language: Vietnamese Communication Ability: Effective Visual Impairment: Limited Hearing Ability: Normal Awning Frame Maker Required: No Beliefs That Will Affect Care: None marital status: Single Current Living Situation: Residential Current Living Situation Comment: [facility] current occupational status: retired Feels Safe at Home: Yes Assistive Devices: Wheelchair Review of Systems Review of Systems: Unobtainable due to cognitive status and Unobtainable due to reduced consciousness Physical Exam Physical Exam: Neuro: AAOx1, nonsensical verbage. HEENT: head normocephalic, moist mucus membranes CV: S1/S2, (-) M/G/R, (-) edema, (-) cap refill < 3 seconds Resp: Lungs CTA in all villa. On oxymask GI: Abdomen S/NT/ND, Ax4 bowel sounds Musculoskeletal: 5/5 B/L UE strength, 5/5 B/L LE strength. No gait disturbance Skin: pale appearance, mottling fingertips and b/l knees Psych: agitated Results & Data Results & Data ([facility]) Vital Signs (Past 12 Hours) Vital Signs Pulse Resp BP BP Pulse Ox O2 Del Method O2 Flow Rate 07/23/22 09:40 58 L 17 97 Oxymask 6 07/23/22 09:34 95/73 L 07/23/22 09:34 63 22 07/23/22 09:30 76 22 91 Oxymask 6 07/23/22 09:22 85/35 L 07/23/22 09:22 73 22 92 Oxymask 6 07/23/22 09:20 65 25 H 91 Oxymask 6 07/23/22 09:15 78/34 L 07/23/22 09:15 61 25 H 07/23/22 09:12 60 25 H 07/23/22 09:12 87/44 L 07/23/22 09:11 54/40 L 07/23/22 09:11 73 26 H 96 07/23/22 09:10 61 24 07/23/22 09:08 78/35 L 07/23/22 09:08 64 30 H 07/23/22 09:04 83 10 L 07/23/22 09:04 70/42 L 07/23/22 08:50 68 07/23/22 08:49 90 33 H 07/23/22 08:49 79/46 L 07/23/22 08:40 68 26 H 07/23/22 08:32 130 H 28 H 07/23/22 09:20 89 28 H 91 Nasal Cannula 6 07/23/22 08:54 79/46 L Laboratory Results Short CBC 07/23/22 Range/Units 08:32 WBC 5.76 (4.8-10.8) K/ul Hgb 9.4 L (14.0-18.0) g/dl Hct 30.5 L (40.1-51.0) % Plt Count 265 (130-400) K/uL BMP 07/23/22 08:32 Sodium 131 L Potassium 7.6 H* Chloride 92 L Carbon Dioxide 3 L* BUN 191 H Creatinine 14.51 H* Glucose 158 H Calcium 9.8 Liver Function 07/23/22 Range/Units 08:32 Total Bilirubin 0.4 (0.2-1.0) mg/dl AST 32 (13-39) U/L ALT 21 (7-52) U/L Alkaline Phosphatase 75 (34-104) U/L Albumin 4.2 (3.4-5.0) gm/dl Diagnostic Findings Abdomen/Pelvis CT 07/23/22 08:40 CT SCAN OF THE CHEST, ABDOMEN, AND PELVIS WITHOUT IV CONTRAST CLINICAL HISTORY: Change in mental status. Dyspnea. COMPARISON STUDY: Chest x-ray dated 02/10/2022. Abdominal CT dated 02/10/2022. TECHNIQUE: Unenhanced CT scan of the chest, abdomen, and pelvis was performed from the thoracic inlet to the proximal femora. Images are reviewed in the axial, sagittal, and coronal planes. IV contrast was not administered for this examination. Note that the examinations were performed in significantly suboptimal fashion without oral and IV contrast. The examinations are also degraded by motion artifact, as well as by streak artifact from the arms which could not be elevated above the chest or abdomen. A dose lowering technique was utilized adhering to the principles of ALARA. CT DOSE: 2641.73 mGy.cm FINDINGS: CHEST: Thyroid: Normal in size and heterogeneous in attenuation. Thoracic aorta: There is atherosclerotic calcification of the thoracic aorta. There is mild aneurysmal dilatation of the ascending thoracic aorta which measures up to 4.2 cm in diameter. The remainder of the thoracic aorta is normal in caliber, and the arch demonstrates standard 3-vessel anatomy. Heart: The heart is enlarged and without pericardial effusion. The coronary arteries are densely calcified. There is diminished attenuation of the cardiac blood pool as compared to the myocardium suggesting anemia. The pulmonary trunk is dilated, measuring 4.0 cm in diameter. This suggests pulmonary artery hypertension. Lungs and pleural spaces: Evaluation of the lung parenchyma is degraded by motion artifact. No airspace consolidation, pleural effusion, or pneumothorax is identified. The trachea and central airways are clear. Low suspicion focus of pleural-based nodularity are seen along the right major minor fissures. A 4 mm right middle lobe pulmonary nodule is seen on image #194. This is unchanged from previous. Mediastinum: There is no mediastinal lymphadenopathy. As always: The esophagus is mildly thick-walled and filled with fluid nearly to the level of the thoracic inlet. Yudy: Not well assessed without IV contrast. Axillae: There is no axillary lymphadenopathy. Bony thorax: The skeletal structures are heterogeneously osteopenic. Spondylotic change is seen throughout the thoracic spine. No lytic or blastic lesions are identified. ABDOMEN AND PELVIS: Liver: Evaluation of the liver is degraded by streak artifact. The unenhanced liver is normal in size and heterogeneous in attenuation. Mild nodularity of the hepatic surface contour suggests morphologic change of cirrhosis. There is no intrahepatic biliary ductal dilatation. The Gallbladder: There are calcified gallstones without CT evidence of acute cholecystitis. Choledocholithiasis is suggested at the ampulla on image #173. Spleen: Normal in size and attenuation. A 2.6 cm hypodensity in the inferior spleen is unchanged and statistically of doubtful significance. Pancreas: The unenhanced pancreas is moderately atrophic and grossly unremarkable. Adrenal glands: Unremarkable. Kidneys: The unenhanced kidneys demonstrate cortical atrophy and are without hydronephrosis. No renal calculi are identified. A 3.8 cm cyst arises anteriorly from the left kidney. Abdominal vasculature: The abdominal aorta is normal in course and caliber n oting moderate atherosclerotic calcification. Stomach and bowel: A small hiatal hernia is noted. The stomach is significantly distended and filled with fluid. There is no evidence of bowel obstruction. The small bowel loops are fluid-filled and appear thick walled. There is moderate colonic diverticulosis without CT evidence of acute diverticulitis. Liquid stool seen throughout the colon. There is rectosigmoid fecal retention. The appendix is well-visualized and normal. Peritoneum: There is no intraperitoneal free air or abdominal ascites. Lymphadenopathy: None. Pelvic viscera: The bladder is decompressed around a Allen catheter and not well evaluated. The prostate gland is enlarged and heterogeneous. The seminal vesicles are normal as visualized. Skeletal structures: The skeletal structures are heterogeneously osteopenic. There is moderate lumbosacral spondylosis. No lytic or blastic lesions are seen. IMPRESSION: 1. Severely suboptimal examination without oral and IV contrast. The examinations are also compromised by streak and motion artifact. 2. There is no airspace consolidation, pleural effusion, or pneumothorax. 3. Cardiomegaly with evidence of pulmonary artery hypertension. 4. The stomach is distended and filled with fluid. Correlate clinically for evidence of gastric outlet obstruction. This could be further assessed with endoscopy if clinically warranted. 5. The esophagus is mildly thick-walled and filled with fluid nearly to the level of the thoracic inlet. Note that this may place the patient at risk for aspiration. 6. There is no evidence of bowel obstruction. 7. The small bowel loops appear fluid-filled and may be mildly thick-walled. There is also liquid stool seen throughout the colon. Correlate clinically for evidence of a nonspecific enterocolitis/diarrheal illness. 8. No intraperitoneal free air is identified. 9. Colonic diverticulosis without CT evidence of acute diverticulitis. 10. Cholelithiasis with possible choledocholithiasis. There is no CT evidence of acute cholecystitis. 11. Appearance of the liver suggests early morphologic change of cirrhosis. 12. Additional findings as above. ACT 112: Negative or not required by law. Electronically signed by: Eris Ceballos M.D. 07/23/2022 9:[address] 07/23/22 08:46 CT SCAN OF THE CHEST, ABDOMEN, AND PELVIS WITHOUT IV CONTRAST CLINICAL HISTORY: Change in mental status. Dyspnea. COMPARISON STUDY: Chest x-ray dated 02/10/2022. Abdominal CT dated 02/10/2022. TECHNIQUE: Unenhanced CT scan of the chest, abdomen, and pelvis was performed from the thoracic inlet to the proximal femora. Images are reviewed in the axial, sagittal, and coronal planes. IV contrast was not administered for this examination. Note that the examinations were performed in significantly suboptimal fashion without oral and IV contrast. The examinations are also degraded by motion artifact, as well as by streak artifact from the arms which could not be elevated above the chest or abdomen. A dose lowering technique was utilized adhering to the principles of ALARA. CT DOSE: 2641.73 mGy.cm FINDINGS: CHEST: Thyroid: Normal in size and heterogeneous in attenuation. Thoracic aorta: There is atherosclerotic calcification of the thoracic aorta. There is mild aneurysmal dilatation of the ascending thoracic aorta which me asures up to 4.2 cm in diameter. The remainder of the thoracic aorta is normal in caliber, and the arch demonstrates standard 3-vessel anatomy. Heart: The heart is enlarged and without pericardial effusion. The coronary arteries are densely calcified. There is diminished attenuation of the cardiac blood pool as compared to the myocardium suggesting anemia. The pulmonary trunk is dilated, measuring 4.0 cm in diameter. This suggests pulmonary artery hypertension. Lungs and pleural spaces: Evaluation of the lung parenchyma is degraded by motion artifact. No airspace consolidation, pleural effusion, or pneumothorax is identified. The trachea and central airways are clear. Low suspicion focus of pleural-based nodularity are seen along the right major minor fissures. A 4 mm right middle lobe pulmonary nodule is seen on image #194. This is unchanged from previous. Mediastinum: There is no mediastinal lymphadenopathy. As always: The esophagus is mildly thick-walled and filled with fluid nearly to the level of the thoracic inlet. Yudy: Not well assessed without IV contrast. Axillae: There is no axillary lymphadenopathy. Bony thorax: The skeletal structures are heterogeneously osteopenic. Spondylotic change is seen throughout the thoracic spine. No lytic or blastic lesions are identified. ABDOMEN AND PELVIS: Liver: Evaluation of the liver is degraded by streak artifact. The unenhanced liver is normal in size and heterogeneous in attenuation. Mild nodularity of the hepatic surface contour suggests morphologic change of cirrhosis. There is no intrahepatic biliary ductal dilatation. The Gallbladder: There are calcified gallstones without CT evidence of acute cholecystitis. Choledocholithiasis is suggested at the ampulla on image #173. Spleen: Normal in size and attenuation. A 2.6 cm hypodensity in the inferior spleen is unchanged and statistically of doubtful significance. Pancreas: The unenhanced pancreas is moderately atrophic and grossly unremarkab le. Adrenal glands: Unremarkable. Kidneys: The unenhanced kidneys demonstrate cortical atrophy and are without hydronephrosis. No renal calculi are identified. A 3.8 cm cyst arises anteriorly from the left kidney. Abdominal vasculature: The abdominal aorta is normal in course and caliber noting moderate atherosclerotic calcification. Stomach and bowel: A small hiatal hernia is noted. The stomach is significantly distended and filled with fluid. There is no evidence of bowel obstruction. The small bowel loops are fluid-filled and appear thick walled. There is moderate colonic diverticulosis without CT evidence of acute diverticulitis. Liquid stool seen throughout the colon. There is rectosigmoid fecal retention. The appendix is well-visualized and normal. Peritoneum: There is no intraperitoneal free air or abdominal ascites. Lymphadenopathy: None. Pelvic viscera: The bladder is decompressed around a Allen catheter and not well evaluated. The prostate gland is enlarged and heterogeneous. The seminal vesicles are normal as visualized. Skeletal structures: The skeletal structures are heterogeneously osteopenic. There is moderate lumbosacral spondylosis. No lytic or blastic lesions are seen. IMPRESSION: 1. Severely suboptimal examination without oral and IV contrast. The examinations are also compromised by streak and motion artifact. 2. There is no airspace consolidation, pleural effusion, or pneumothorax. 3. Cardiomegaly with evidence of pulmonary artery hypertension. 4. The stomach is distended and filled with fluid. Correlate clinically for evidence of gastric outlet obstruction. This could be further assessed with endoscopy if clinically warranted. 5. The esophagus is mildly thick-walled and filled with fluid nearly to the level of the thoracic inlet. Note that this may place the patient at risk for aspiration. 6. There is no evidence of bowel obstruction. 7. The small bowel loops appear fluid-filled and may be mildly thick-walled. There is also liquid stool seen throughout the colon. Correlate clinically for evidence of a nonspecific enterocolitis/diarrheal illness. 8. No intraperitoneal free air is identified. 9. Colonic diverticulosis without CT evidence of acute diverticulitis. 10. Cholelithiasis with possible choledocholithiasis. There is no CT evidence of acute cholecystitis. 11. Appearance of the liver suggests early morphologic change of cirrhosis. 12. Additional findings as above. ACT 112: Negative or not required by law. Electronically signed by: Eris Ceballos M.D. 07/23/2022 9:[address] 07/23/22 08:46 CT head/brain wo con CLINICAL HISTORY: ams Technique: Contiguous axial CT images of the head were acquired from the base of the skull to the vertex without intravenous contrast administration. Images were viewed in brain, subdural and bone windows. Automated dose lowering techniques and/or adjustment according to patient size were utilized for this exam. Comparison: None available at the time of this dictation. Findings: Exam is limited by patient motion. Areas of decreased attenuation are present in the periventricular and subco rtical white matter bilaterally consistent with small vessel ischemic disease. Generalized cerebral volume loss with commensurate enlargement of the ventricles, sulci, and cisterns is also present. 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 This appearance is unchanged from prior exam. Stable lacunar infarct in the right basal ganglia. Redemonstration of opacification of a right ethmoid air cell which appears stably enlarged. Mucous retention cyst in the left maxillary sinus is noted. The orbits appear normal. There are no acute fractures of the calvaria or scalp swelling. Impression: Limited exam due to patient motion. No acute abnormalities are seen. Old infarcts are noted. Stable right ethmoid sinus disease. ACT 112: Negative or not required by law. Electronically signed by: Trell Rodriguez M.D. 07/23/2022 9:11 AM ECG Additional Comments: Atrial Fibrillation: HR 78 inferior Q wave QTc: 556 Code Status & VTE Plan Code Status DNR/DNI in the event of cardiac or respiratory arrest VTE Prophylaxis Plan VTE Prophylaxis will be ordered: No Reason for no VTE drug order: Contraindicated (now on Comfort Measures only ) Supervising Physician Co-Signing Physician Notes I have seen and examined the patient and have discussed the case with the provid er above. I agree with the assessment and plan as stated. The patient presented critically ill with clear previous direction that he was not to receive aggressive medical management. This was supported by his brother Vinicius by phone. Very guarded prognosis despite initial resuscitation attempts. Uncertain cause of acute abdominal pain with a severe lactic acidosis, severe acute renal failure and acute decompensation of heart failure. He is confused and agitated. CT scan of the chest, abdomen and pelvis without IV or oral contrast revealed no evidence of airspace consolidation, pleural effusion, or pneumothorax. Thick walled esophagus with a fluid filled stomach. The small bowel also was fluid filled and thick-walled. No evidence of bowel obstruction. Liquid stool seen throughout the colon suggestive of a diarrheal illness. Transitioned to comfort measures and given Ativan with Dilaudid drip ordered for agitation and pain. 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
[2022-07-23 10:00] LABS: Appearance Urine Clear (Clear); Bacteria Urine Automated Negative (Negative); Bilirubin Urine Negative (Negative); Blood Urine Negative (Negative); Color Urine Yellow; Glucose Urine UA Negative (Negative); Ketones Urine Negative (Negative); Leukocyte Esterase Urine Negative (Negative); Nitrite Urine Negative (Negative); Protein Urine Trace (Negative); Specific Gravity Urine 1.016 (1.000-1.030); Urobilinogen Urine Negative (Negative)
[2022-07-23] MEDS ORDERED: LORazepam 2 MG/1 ML VIAL IV STA (10:15)
[2022-07-23] MEDS ORDERED: HYDROmorphone INJ 0.5 MG/0.5 ML SYR IV STA (10:15)
[2022-07-23] MEDS ORDERED: HYDROmorphone/NSS 100 MG/100 ML BAG IV SCH (10:30)
[2022-07-23] MEDS ORDERED: OLANZapine ZYDIS 5 MG ORALLY DIS. TAB PO PRN (11:12)
[2022-07-23] MEDS ORDERED: ICU PROTOCOL FOR HYPERGLYCEMIA PRN (11:35)
[2022-07-23] MEDS ORDERED: GLYCOPYRROLATE 0.2 MG/ML VIAL IV PRN (12:06)
--- NOTE | 2022-07-23 12:46 | Electrocardiogram Report ---
Test Reason : Blood Pressure : / mmHG Vent. Rate : 078 BPM Atrial Rate : 073 BPM P-R Int : 000 ms QRS Dur : 166 ms QT Int : 488 ms P-R-T Axes : 000 -78 075 degrees QTc Int : 556 ms Probable Atrial fibrillation Left axis deviation Non-specific intra-ventricular conduction block Abnormal ECG When compared with ECG of 10-FEB-2022 06:18, QRS duration has increased Rhythm no longer sinus Confirmed by Antione Jay ([id number]) on 07/23/2022 12:45:55 PM Referred By: Confirmed By:Antione Jay
--- NOTE | 2022-07-23 12:47 | Electrocardiogram Report ---
Test Reason : Blood Pressure : / mmHG Vent. Rate : 056 BPM Atrial Rate : 056 BPM P-R Int : 000 ms QRS Dur : 164 ms QT Int : 538 ms P-R-T Axes : 000 -70 064 degrees QTc Int : 519 ms Probable Atrial fibrillation Left axis deviation Non-specific intra-ventricular conduction block Abnormal ECG When compared with ECG of 23-JUL-2022 08:27, HR has decreased by 22 bpm Otherwise no significant change Confirmed by Antione Jay ([id number]) on 07/23/2022 12:47:17 PM Referred By: Confirmed By:Antione Jay
--- NOTE | 2022-07-23 14:43 | Discharge Summary ---
Date of Service July 23, 2022 Admission HPI Per Admitting Provider Mr. 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 The patient was started on Levophed and HCO3 gtts and I was able to reach out to the patients brother/POA for further goals of care discussion to be held. Unfor tunately, the patient and family has opted for a more conservative approach to his care, including no central lines or heroic measures taken in the event of cardiac or respiratory arrest. Aggressive treatment measures in this individual with decompensated heart failure would likely be futile without likely meaningful recovery. 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 Pt family en route to be with patient at end of life. Patient will be admitted for end of life, comfort measures. Principal Diagnosis Multiorgan system failure Acute systolic heart failure Discharge Exam see note Discharge Data Allergies Allergy/AdvReac Type Severity Reaction Status Date / Time No Known Allergies Allergy Verified 05/22/22 09:20 Consultations 07/23/22 09:47 ED Decision to Admit Stat Ordered Studies 07/23/22 08:40 CT abd pelvis wo con Stat 07/23/22 08:46 CT chest diagnostic wo con Stat CT head/brain wo con Stat Hospital Course (1) Multiple organ system failure: (2) CAD (coronary artery disease), [place] coronary artery: (3) Decompensated heart failure: (4) Palliative care encounter: (5) Goals of care, counseling/discussion: (6) Diabetes mellitus: Plan 72 yo M presented to the ER for severe abdominal and back pain and was found to be in multiorgan failure with acute heart failure, acute renal failure with a creatinine of 17 and potassium level of 7.5. He was started on pressor support with norepinephrine and aggressive resuscitation efforts ensued including intravenous fluids, electrolyte replacement, and broad spectrum antibiotics. Lab work also revealed severe metabolic acidosis. The patient was confused and unable to make his own medical decisions. HE had previously instructed his family that he was a do not resuscitate. He was started on BIPAP, however, became quite agitated with this and declined. He also became agitated with an attempt to place a nasogastric tube. Central lines, BIPAP and other heroic measures including hemodialysis were declined by his brother Vinicius. The case was also discussed with the director of marketing communications filter tank tender helper head. The decision was made to transition him to comfort measures after a couple of hours of attempted resuscitation. He was given Ativan and started on a Dilaudid drip with a small bolus. The customer service consultant was consulted and was able to speak with the patient somewhat while he was still alert, despite some confusion present. He ceased to breathe at 1:29pm. Tried contacting brother immediately by phone but there was no response. Tried again and he had already been contacted by the SNF that his brother had passed. He is en route to the hospital. Total Time Total Time Spent Total Time Spent (In Minutes): 60 Discharge Plan Discharge Items Patient Disposition: Reason For Visit: ABDOMINAL AND BACK PAIN Follow-up/Referrals: STATE PARAMJIT MACIEL [Primary Care Provider] - Medications and DC Order Prescriptions: No Action bumetanide 2 mg tablet 2 mg PO DAILY Qty: 30 11RF lisinopril 20 mg tablet 20 mg PO QAM Qty: 30 3RF metoprolol succinate 50 mg tablet extended release 24 hr 100 mg PO DAILY@1000 spironolactone 25 mg tablet 25 mg PO QAM pantoprazole 40 mg tablet,delayed release (DR/EC) 40 mg PO DAILY Qty: 30 0RF clopidogrel [Plavix] 75 mg tablet 75 mg PO QAM aspirin 81 mg Tablet,Delayed Release (Dr/Ec) 81 mg PO QAM folic acid-B rdjj-H-gaksw-zinc 3-70-15 mg-mcg-mg Tablet 1 tab PO QAM gabapentin 100 mg Capsule 200 mg PO BID 30 Days Qty: 120 1RF atorvastatin [Lipitor] 80 mg tablet 40 mg PO PM metformin 850 mg Tablet 850 mg PO BID ferrous sulfate 325 mg (65 mg iron) Tablet 325 mg PO TID multivitamin with folic acid [Daily-Cesar (with folic acid)] 400 mcg Tablet 1 tab PO QAM Qty: 30 0RF Admission Data Admit Date/Time: 07/23/22 09:48 Attending Provider: Caryn Greer Admit Provider: Caryn Greer Primary Care Provider: [facility] PARAMJIT MACIEL Other Providers: Caryn Greer
--- NOTE | 2022-07-23 14:48 | Communication Note ---
Date of Service: July 23, 2022 Notified by nursing staff that patient had ceased to breathe. Arrived to find patient motionless and unresponsive to verbal stimulation or sternal rub or nailbed pressure. Pupils were fixed and dilated. No heartbeat to cardiac auscultation. There was no breath sounds nor chest rise and fall with pulmonary auscultation. Skin was warm and dry. Time of 1:29pm. Family was notified by phone. Caryn Greer DO [facility] Hospitalist
--- NOTE | 2022-07-31 15:56 | Coding Query ---
CODING QUERY To promote full compliance with coding requirements relating to patient care, provider participation is requested in all cases of insurance defense paralegal uncertainty. Please assist us with the question(s) below: Coding Question(s): Pkease document cause of . Thank you ! Jaskaran Dacosta [facility] Physician's Response(s): Principal Diagnosis: "that condition established after study, to be chiefly responsible for occasioning the admission of the patient to the hospital for care." Co-Existing Principal Diagnosis: "when two or more diagnoses equally meet the criteria for principal diagnosis as determined by the circumstances of admission, diagnostic work up, and/or therapy provided, and the Alphabetic Index, Tabular List, or another coding guideline does not provide sequencing direction, any one of the diagnoses may be sequenced first." "When the physician has documented what appears to be a current diagnosis in the body of the record, but has not included the diagnosis in the final diagnostic statement, the physician should be asked whether the diagnosis should be added." (Source Coding [facility] 2 QTR90. p3-4) JORDAN
== END 2022-07-23 13:30 | disposition expired | DRG 951 ==
LOC: ED 08:21 → EDINP 09:48